=== PATIENT | female | born 1955 | race American Indian/Alaskan Native ===

== ENCOUNTER 2019-07-18 16:58 | Inpatient (IN) | payer MEDICAID ==
--- NOTE | 2019-07-18 18:48 | Emergency Department Report ---
HPI - General Chief Complaint: Neuro Symptoms/Deficit Time Seen by Provider: 07/18/19 18:30 - HPI HPI: 64-year-old female presents to the emergency department via EMS from home with multiple complaints. First, the patient says that she has concern that she has had or is having a "small stroke" because "my mouth is twisted." The patient noticed some left-sided facial droop and some difficulty talking starting yesterday. She says that when she tries to drink water it falls out of her mouth. She also complains of a generalized headache that is currently 9 out of 10 in intensity that has also been going on since yesterday. The patient also complains of some right shoulder pain that she says has been going on for the past 2-3 days. She denies any particular trauma or injury or inciting event. However the patient says that she has been falling a lot because she has been dizzy. She has a past medical history of insulin-dependent diabetes, hypertension, hyperlipidemia. She denies having a current primary care physician. She is a tobacco smoker and occasionally will smoke marijuana. Denies any significant alcohol use. ED Past Medical Hx - Past Medical History Hx Hypertension: Yes Hx Diabetes: Yes - Social History Smoking Status: Current Every Day Smoker Substance Use Type: Alcohol - Medications Home Medications: Home Medications Medication Instructions Recorded Confirmed Last Taken Type Dicyclomine [Bentyl] 10 mg PO QID PRN #20 capsule 01/08/16 Unknown Rx Famotidine [Pepcid] 20 mg PO BID #30 tablet 01/08/16 Unknown Rx ED Review of Systems ROS: Stated complaint: (L) SHOULDER PAIN/FACIAL DROOPING Other details as noted in HPI Comment: All other systems reviewed and negative Constitutional: denies: chills, fever Eyes: denies: eye pain, vision change ENT: denies: ear pain, throat pain Respiratory: denies: cough, shortness of breath Cardiovascular: denies: chest pain, palpitations Gastrointestinal: denies: abdominal pain, vomiting Genitourinary: denies: dysuria, discharge Musculoskeletal: arthralgia. denies: joint swelling Skin: denies: rash, lesions Neurological: headache, other (facial droop, dizziness) Physical Exam - Physical Exam Vital Signs: Vital Signs 07/18/19 07/18/19 07/18/19 17:20 17:22 17:30 Temperature 100.2 F H Pulse Rate 102 H 100 H Respiratory 18 21 Rate Blood Pressure 116/72 Blood Pressure 116/72 [Left] O2 Sat by Pulse 97 95 98 Oximetry 07/18/19 07/18/19 07/18/19 17:45 18:00 18:05 Temperature 100.2 F H Pulse Rate 96 H 101 H 102 H Respiratory 15 10 L 18 Rate Blood Pressure 119/74 119/74 Blood Pressure 116/72 [Left] O2 Sat by Pulse 93 95 100 Oximetry 07/18/19 18:35 Temperature Pulse Rate 100 H Respiratory Rate Blood Pressure Blood Pressure [Left] O2 Sat by Pulse Oximetry Physical Exam: GENERAL: The patient is well-developed well-nourished. HENT: Normocephalic. Atraumatic. Patient has moist mucous membranes. EYES: Extraocular motions are intact. Pupils equal reactive to light bilaterally. No nystagmus. NECK: Supple. Trachea is midline. CHEST/LUNGS: Clear to auscultation. There is no respiratory distress noted. HEART/CARDIOVASCULAR: Regular. There is no tachycardia. There is no murmur. ABDOMEN: Abdomen is soft, nontender. Patient has normal bowel sounds. There is no abdominal distention. SKIN: Skin is warm and dry. NEURO: The patient is awake, alert, and oriented. The patient is cooperative. Subjective decreased sensation to the left side of the face compared to the right. Normal speech. Left-sided nasolabial fold paresis. There is bilateral upper extremity drift with left greater than right. The right upper extremity drift. Secondary to right shoulder pain. Mild left lower extremity drift. MUSCULOSKELETAL: There is some reproducible right shoulder tenderness to palpation. There is no evidence of acute injury. ED Course Vital Signs 07/18/19 07/18/19 07/18/19 17:20 17:22 17:30 Temperature 100.2 F H Pulse Rate 102 H 100 H Respiratory 18 21 Rate Blood Pressure 116/72 Blood Pressure 116/72 [Left] O2 Sat by Pulse 97 95 98 Oximetry 07/18/19 07/18/19 07/18/19 17:45 18:00 18:05 Temperature 100.2 F H Pulse Rate 96 H 101 H 102 H Respiratory 15 10 L 18 Rate Blood Pressure 119/74 119/74 Blood Pressure 116/72 [Left] O2 Sat by Pulse 93 95 100 Oximetry 07/18/19 18:35 Temperature Pulse Rate 100 H Respiratory Rate Blood Pressure Blood Pressure [Left] O2 Sat by Pulse Oximetry - Consultations Consultation #1: 07/18/19 19:55 I spoke with the telemedicine neurologist, Dr. Charan Chase, regarding the CT findings showing right MCA infarct. He does not feel that there is any CT angiography imaging necessary. He agrees that the patient is outside of the window for TPA and would not be a thrombectomy candidate. He recommends a medical admission for further stroke workup. ED Medical Decision Making - Lab Data Result diagrams: 07/18/19 18:37 07/18/19 18:37 - EKG Data -: EKG Interpreted by Me EKG shows normal: sinus rhythm (PVCs), axis, intervals (prolonged QTc), QRS complexes, ST-T waves Rate: normal - EKG Data When compared to previous EKG there are: previous EKG unavailable Interpretation: other (Sinus with PVCs, Prolonged QTc) - Radiology Data Radiology results: report reviewed, image reviewed interpreted by me: Right shoulder x-ray does not show any fracture, dislocation or any acute process. CT head/brain wo con INDICATION: MAIN: Stroke symptoms WEAK AMS. TECHNIQUE: All CT scans at this location are performed using CT dose reduction for ALARA by means of automated exposure control. COMPARISON: None available. FINDINGS: Visualized paranasal and mastoid sinuses are clear. There is a relatively well-defined area of decreased attenuation in the right frontal and temporal lobe, consistent with infarction involving a major branch of the right middle cerebral artery. There is only minimal surrounding edema, suggesting this infarction is acute. No appreciable hemorrhage. No additional abnormalities. IMPRESSION: 1. Acute, ischemic right middle cerebral infarction. - Medical Decision Making This patient presents to the emergency department with the complaint of a possible stroke as she developed a headache and a left-sided facial droop yesterday, the day prior to presentation. On examination she does have left- sided facial droop, subjective decrease sensation to the left side of her face and has bilateral upper extremity drift with left greater than right. However the patient has some right shoulder pain that I believe is the reason for the right upper extremity drift. She has a 6 on the NIH stroke scale. Her last known well time is greater than 24 hours and is still unknown as to an exact time and therefore the patient is not a TPA candidate. She also does not appear to be a thrombectomy candidate. She had a stat CT scan of the head without contrast came back showing acute ischemic right middle cerebral infarction. As per the consultation section, I spoke with telemedicine neurology who agrees that the patient is not a TPA candidate, does not need CT angiography, and should be admitted as a medical admission for further stroke workup. Patient's labs are mostly unremarkable except for a positive troponin. The patient has no complaints of any chest pain. EKG did not show any signs of ST elevation [place] or significant dysrhythmia. She was given an aspirin. The patient was admitted to the hospital and accepted by Dr. Camilo. - Differential Diagnosis CVA, TIA, [place] Palsy, SAH Critical Care Time: Yes Critical care time in (mins) excluding proc time.: 35 Critical care attestation.: If time is entered above; I have spent that time in minutes in the direct care of this critically ill patient, excluding procedure time. Critical care time was spent on this patient and doing her initial evaluation, multiple re- evaluations, ordering an interpretation of labs and imaging, discussion with the telemedicine neurologist. Critical Care Time: 35 minutes ED Disposition Clinical Impression: Acute CVA (cerebrovascular accident), Elevated troponin Right shoulder pain Qualifiers: Chronicity: acute Qualified Code(s): M25.511 - Pain in right shoulder Hypertension Qualifiers: Hypertension type: essential hypertension Qualified Code(s): I10 - Essential (primary) hypertension Disposition: 09 OP ADMIT IP TO THIS HOSP Is pt being admited?: Yes Condition: Serious - Assessment Assessment Interval: Baseline - Level of Consciousness 1a. Level of Consciousness: alert/keenly responsive - LOC Questions 1b. LOC Questions: answers both correctly - LOC Command 1c. LOC Commands: performs tasks correctly - Best Gaze 2. Best Gaze: normal - Visual 3. Visual: no visual loss - Facial Palsy 4. Facial Palsy: partial paralysis - Motor Arm 5a. Motor Arm Left: drift 5b. Motor Arm Right: drift (Patient has right shoulder pain.) - Motor Leg 6a. Motor Leg Left: drift 6b. Motor Leg Right: no drift - Limb Ataxia 7. Limb Ataxia: absent - Sensory 8. Sensory: mild/moderate sensory loss - Best Language 9. Best Language: no aphasia - Dysarthria 10. Dysarthria: normal - Extinction and Inattention 11. Extinction/Inattention: no abnormality - Scoring Total Score: 6 Stroke Severity: Moderate Stroke
[2019-07-18 18:50] LABS: Basophils # (Auto) 0.1 K/mm3 (0.0-0.1); Basophils % (Auto) 1.3 % (0.0-1.8); Eosinophils # (Auto) 0.1 K/mm3 (0.0-0.4); Eosinophils % (Auto) 0.7 % (0.0-4.3); Hematocrit 43.5 % (30.3-42.9); Hemoglobin 14.7 gm/dl (10.1-14.3); Lymphocytes # (Auto) 2.7 K/mm3 (1.2-5.4); Lymphocytes % (Auto) 25.3 % (13.4-35.0); Mean Corpuscular HGB Conc 34 % (30-34); Mean Corpuscular Volume 93 fl (79-97); Monocytes # (Auto) 1.1 K/mm3 (0.0-0.8); Monocytes % (Auto) 10.2 % (0.0-7.3); Platelet Count 258 K/mm3 (140-440); Red Blood Count 4.67 M/mm3 (3.65-5.03); Red Cell Distribution Width 14.5 % (13.2-15.2)
[2019-07-18 19:10] LABS: INR 0.98 (0.87-1.13)
[2019-07-18 19:11] LABS: Creatine Kinase MB 1.7 ng/mL (0.0-4.0); Partial Thromboplastin Time 23.9 Sec. (24.2-36.6)
--- NOTE | 2019-07-18 19:11 | Cat Scan Report ---
CT head/brain wo con INDICATION: MAIN: Stroke symptoms WEAK AMS. TECHNIQUE: All CT scans at this location are performed using CT dose reduction for ALARA by means of automated e xposure control. COMPARISON: None available. FINDINGS: Visualized paranasal and mastoid sinuses are clear. There is a relatively well-defined area of decrea sed attenuation in the right frontal and temporal lobe, consistent with infarction involving a major branch of the right middle cerebral artery. There is only minimal surrounding edema, suggesting this infarction is acute. No appreciable hemorrhage. No additional abnormalities. IMPRESSION: 1. Acute, ischemic right middle cerebral infarction. Signer Name: Nnamdi Morales MD Signed: 07/18/2019 7:06 PM Workstation Name: [id number]
[2019-07-18] MEDS ORDERED: BABY ASPIRIN PO ONE (19:14)
[2019-07-18 19:15] LABS: Alanine Aminotransferase 20 units/L (7-56); Albumin 3.4 g/dL (3.9-5); BUN/Creatinine Ratio 13; Blood Urea Nitrogen 12 mg/dL (7-17); Calcium 8.9 mg/dL (8.4-10.2); Hemolysis Index 7
--- NOTE | 2019-07-18 19:28 | XRay Report ---
EXAMINATION: Right shoulder radiograph, 2 views CLINICAL INFORMATION: Right shoulder pain after trauma. Fall. COMPARISON: None. FINDINGS: There are advanced bony degenerative changes of the right humeral head without definitive e vidence for acute fracture or dislocation. Please correlate with patient's clinical circumstances. Signer Name: Delma Ramirez MD Signed: 07/18/2019 7:23 PM Workstation Name: [id number]
[2019-07-18] MEDS ORDERED: K-DUR PO ONE (19:29)
[2019-07-18 19:54] LABS: Chol/HDL Ratio 4.2 %
[2019-07-18] MEDS ORDERED: BENTYL PO PRN (22:47)
--- NOTE | 2019-07-18 22:47 | History and Physical Report ---
History of Present Illness Date of examination: 07/18/19 Date of admission: 07/18/19 20:09 Chief complaint: Rt sided weakness. more than 24 hours History of present illness: 64-year-old female with pmh of HTN and Diabetes presents to the emergency department via EMS complaining of Lt facial droop and Left t sided weakness.Very poor historian.Frequent falls recently.These symptoms are more than 24 hours.Has some slurring of seech.During my exam able to lift her LUE and LLE normally.Has Lt sided facial weakness.No recent trauma or injury.Known s moker. Past Medical History Hypertension Diabetes Past Surgical history None Social History Smoking Status: Current Every Day Smoker Substance Use Type: Alcohol Family History Htn - Medications Home Medications: Home Medications Medication Instructions Recorded Confirmed Last Taken Type Dicyclomine [Bentyl] 10 mg PO QID PRN #20 capsule 01/08/16 Unknown Rx Famotidine [Pepcid] 20 mg PO BID #30 tablet 01/08/16 Unknown Rx Review of Systems ROS: Stated complaint: (L) SHOULDER PAIN/FACIAL DROOPING Other details as noted in HPI Comment: All other systems reviewed and negative Constitutional: denies: chills, fever Eyes: denies: eye pain, vision change ENT: denies: ear pain, throat pain Respiratory: denies: cough, shortness of breath Cardiovascular: denies: chest pain, palpitations Gastrointestinal: denies: abdominal pain, vomiting Genitourinary: denies: dysuria, discharge Musculoskeletal: arthralgia. denies: joint swelling Skin: denies: rash, lesions Neurological: headache, other ( L facial droop, dizziness) Medications and Allergies Allergies Allergy/AdvReac Type Severity Reaction Status Date / Time Penicillins Allergy Swelling Verified 01/08/16 07:21 Home Medications Medication Instructions Recorded Confirmed Last Taken Type Dicyclomine [Bentyl] 10 mg PO QID PRN #20 capsule 01/08/16 Unknown Rx Famotidine [Pepcid] 20 mg PO BID #30 tablet 01/08/16 Unknown Rx Exam - Constitutional Vitals: Temp Pulse Resp BP Pulse Ox 100.2 F H 85 18 121/15 88 07/18/19 18:05 07/18/19 21:30 07/18/19 21:30 07/18/19 21:30 07/18/19 21:30 General appearance: Present: no acute distress, well-nourished - EENT Eyes: Present: PERRL ENT: hearing intact, clear oral mucosa - Neck Neck: Present: supple, normal ROM - Respiratory Respiratory effort: normal Respiratory: bilateral: CTA - Cardiovascular Heart rate: 100 Rhythm: regular Heart Sounds: Present: S1 & S2. Absent: rub, click - Extremities Extremities: no ischemia, pulses symmetrical, No edema Peripheral Pulses: within normal limits - Abdominal General gastrointestinal: Present: soft, non-tender, non-distended, normal bowel sounds Female genitourinary: Present: normal - Rectal Rectal Exam: deferred - Integumentary Integumentary: Present: clear, warm, dry - Musculoskeletal Musculoskeletal: right sided weakness - Psychiatric Psychiatric: appropriate mood/affect, intact judgment & insight, cooperative - Neurologic Neurologic: focal deficits (LUE and LLE 4/5 power.Lt facial palsy present), moves all extremities, other (Reflexes are normal.) - Allied Health Allied health notes reviewed: nursing, case management Results - Labs CBC & Chem 7: 07/18/19 18:37 07/18/19 18:37 Labs: Laboratory Last Values WBC 10.8 K/mm3 (4.5-11.0) 07/18/19 18:37 RBC 4.67 M/mm3 (3.65-5.03) 07/18/19 18:37 Hgb 14.7 gm/dl (10.1-14.3) H 07/18/19 18:37 Hct 43.5 % (30.3-42.9) H 07/18/19 18:37 MCV 93 fl (79-97) 07/18/19 18:37 MCH 31 pg (28-32) 07/18/19 18:37 MCHC 34 % (30-34) 07/18/19 18:37 RDW 14.5 % (13.2-15.2) 07/18/19 18:37 Plt Count 258 K/mm3 (140-440) 07/18/19 18:37 Lymph % (Auto) 25.3 % (13.4-35.0) 07/18/19 18:37 Martin % (Auto) 10.2 % (0.0-7.3) H 07/18/19 18:37 Eos % (Auto) 0.7 % (0.0-4.3) 07/18/19 18:37 Baso % (Auto) 1.3 % (0.0-1.8) 07/18/19 18:37 Lymph # 2.7 K/mm3 (1.2-5.4) 07/18/19 18:37 Martin # 1.1 K/mm3 (0.0-0.8) H 07/18/19 18:37 Eos # 0.1 K/mm3 (0.0-0.4) 07/18/19 18:37 Baso # 0.1 K/mm3 (0.0-0.1) 07/18/19 18:37 Seg Neutrophils % 62.5 % (40.0-70.0) 07/18/19 18:37 Seg Neutrophils # 6.8 K/mm3 (1.8-7.7) 07/18/19 18:37 PT 12.7 Sec. (12.2-14.9) 07/18/19 18:37 INR 0.98 (0.87-1.13) 07/18/19 18:37 APTT 23.9 Sec. (24.2-36.6) L 07/18/19 18:37 Sodium 138 mmol/L (137-145) 07/18/19 18:37 Potassium 3.4 mmol/L (3.6-5.0) L 07/18/19 18:37 Chloride 97.5 mmol/L (98-107) L 07/18/19 18:37 Carbon Dioxide 28 mmol/L (22-30) 07/18/19 18:37 16 mmol/L 07/18/19 18:37 BUN 12 mg/dL (7-17) 07/18/19 18:37 0.9 mg/dL (0.7-1.2) 07/18/19 18:37 Estimated GFR > 60 ml/min 07/18/19 18:37 13 % 07/18/19 18:37 Glucose 220 mg/dL (65-100) H 07/18/19 18:37 Calcium 8.9 mg/dL (8.4-10.2) 07/18/19 18:37 0.40 mg/dL (0.1-1.2) 07/18/19 18:37 AST 24 units/L (5-40) 07/18/19 18:37 ALT 20 units/L (7-56) 07/18/19 18:37 98 units/L (35-129) 07/18/19 18:37 286 units/L (30-135) H 07/18/19 18:37 CK-MB (CK-2) 1.7 ng/mL (0.0-4.0) 07/18/19 18:37 CK-MB (CK-2) Rel Index 0.5 (0-4) 07/18/19 18:37 0.318 ng/mL (0.00-0.029) H* 07/18/19 20:40 7.3 g/dL (6.3-8.2) 07/18/19 18:37 3.4 g/dL (3.9-5) L 07/18/19 18:37 0.9 % 07/18/19 18:37 Triglycerides 142 mg/dL (2-149) 07/18/19 18:37 Cholesterol 122 mg/dL (50-199) 07/18/19 18:37 79 mg/dL (50-130) 07/18/19 18:37 29 mg/dL (40-59) L 07/18/19 18:37 4.20 % 07/18/19 18:37 TSH 1.760 mlU/mL (0.270-4.200) 07/18/19 18:37 Plasma/Serum Alcohol < 0.01 % (0-0.07) 07/18/19 18:37 Short CBC 07/18/19 Range/Units 18:37 WBC 10.8 (4.5-11.0) K/mm3 Hgb 14.7 H (10.1-14.3) gm/dl Hct 43.5 H (30.3-42.9) % Plt Count 258 (140-440) K/mm3 BMP 07/18/19 18:37 Sodium 138 Potassium 3.4 L Chloride 97.5 L Carbon Dioxide 28 BUN 12 Creatinine 0.9 Glucose 220 H Calcium 8.9 Cardiac Enzymes 07/18/19 07/18/19 Range/Units 18:37 20:40 Total Creatine Kinase 286 H (30-135) units/L CK-MB (CK-2) 1.7 (0.0-4.0) ng/mL Troponin T 0.319 H* 0.318 H* (0.00-0.029) ng/mL Liver Function 07/18/19 Range/Units 18:37 Total Bilirubin 0.40 (0.1-1.2) mg/dL AST 24 (5-40) units/L ALT 20 (7-56) units/L Alkaline Phosphatase 98 (35-129) units/L Albumin 3.4 L (3.9-5) g/dL Short CBC 07/18/19 Range/Units 18:37 WBC 10.8 (4.5-11.0) K/mm3 Hgb 14.7 H (10.1-14.3) gm/dl Hct 43.5 H (30.3-42.9) % Plt Count 258 (140-440) K/mm3 BMP 07/18/19 18:37 Sodium 138 Potassium 3.4 L Chloride 97.5 L Carbon Dioxide 28 BUN 12 Creatinine 0.9 Glucose 220 H Calcium 8.9 Cardiac Enzymes 07/18/19 07/18/19 Range/Units 18:37 20:40 Total Creatine Kinase 286 H (30-135) units/L CK-MB (CK-2) 1.7 (0.0-4.0) ng/mL Troponin T 0.319 H* 0.318 H* (0.00-0.029) ng/mL Liver Function 07/18/19 Range/Units 18:37 Total Bilirubin 0.40 (0.1-1.2) mg/dL AST 24 (5-40) units/L ALT 20 (7-56) units/L Alkaline Phosphatase 98 (35-129) units/L Albumin 3.4 L (3.9-5) g/dL - Imaging and Cardiology EKG: report reviewed (NSR 100/min) CT Scan - head: report reviewed Imaging and Cardiology: CT Head FINDINGS: Visualized paranasal and mastoid sinuses are clear. There is a relatively well-defined area of decreased attenuation in the right frontal and temporal lobe, consistent with infarction involving a major branch of the right middle cerebral artery. There is only minimal surrounding edema, suggesting this infarction is acute. No appreciable hemorrhage. No additional abnormalities. IMPRESSION: 1. Acute, ischemic right middle cerebral infarction. Rt Shoulder Xray Degenerative changes in Rt Humeral head Assessment and Plan Advance Directives: Yes (Full code) VTE prophylaxis?: Chemical Plan of care discussed with patient/family: Yes - Patient Problems (1) Acute CVA (cerebrovascular accident) Current Visit: Yes Status: Acute Plan to address problem: CT shows Rt sided MCA territory infarct Patient has Lt sided Weakness. Neuro consult requested. ECHO and Carotid duplex scan ordered.Will defer MRI/MRA requirement to Neurology. patient not a candidate for TPA because she is out of the window period. (2) Elevated troponin I level Current Visit: Yes Status: Acute Plan to address problem: Appears to be nonspeciific CK MB not elevated Will defer to cardiolgy consult (3) Hypertension Current Visit: Yes Status: Chronic Qualifiers: Hypertension type: essential hypertension Qualified Code(s): I10 - Essential (primary) hypertension Plan to address problem: COnt antihypertensives (4) T2DM (type 2 diabetes mellitus) Current Visit: Yes Status: Chronic Qualifiers: Diabetes mellitus long term care pharmacist insulin use: without long term care pharmacist use Plan to address problem: Coverage for now Check A1c Not on any home hypoglycemics Initiate Oral hypoglycemics if necessary Defer to primary team (5) Nicotine dependence with current use Current Visit: Yes Status: Chronic Plan to address problem: Patient counselled Initiated on Nicoderm patch (6) Right shoulder pain Current Visit: Yes Status: Acute Qualifiers: Chronicity: acute Qualified Code(s): M25.511 - Pain in right shoulder Plan to address problem: Sec to Degenerative changes in Rt shoulder Jt Analgesics prn (7) DVT prophylaxis Current Visit: Yes Status: Acute Plan to address problem: Lovenox initiated on Lovenox and Gi prophylaxis
[2019-07-18] MEDS ORDERED: SODIUM CHLORIDE FLUSH SYRINGE 10 ML IV PRN ×2 (22:48→22:50)
[2019-07-18] MEDS ORDERED: ZOFRAN IV PRN (22:48)
[2019-07-18] MEDS ORDERED: NACL 0.9% 1000 ML 1,000 ML IV SCH (23:00)
[2019-07-19 07:14] LABS: Bilirubin,Urine NEG (Negative); Blood,Urine NEG (Negative); Color,Urine Yellow (Yellow); Mucus,Urine FEW /HPF; Protein,Urine <15 mg/dL mg/dL (Negative); Urobilinogen,Urine < 2.0 mg/dL (<2.0)
[2019-07-19 07:34] LABS: Amphetamine Screen,Urine PRESUMPTIVE NEGATIVE; Benzodiazepines Screen,Urine PRESUMPTIVE NEGATIVE; Cocaine Screen,Urine PRESUMPTIVE NEGATIVE; Methadone Screen,Urine PRESUMPTIVE NEGATIVE; Opiate Screen,Urine PRESUMPTIVE NEGATIVE
[2019-07-19 07:56] LABS: Cannabinoid Screen,Urine PRESUMPTIVE POSITIVE
[2019-07-19] MEDS ORDERED: ASPIRIN PO SCH (10:00)
[2019-07-19] MEDS: HABITROL TD SCH (10:30)
[2019-07-19] MEDS: PEPCID PO SCH ×2 (10:30→22:09)
[2019-07-19] MEDS: SODIUM CHLORIDE FLUSH SYRINGE 10 ML IV SCH ×2 (10:30→22:48)
[2019-07-19] MEDS: TYLENOL PO PRN (10:30)
--- NOTE | 2019-07-19 12:44 | Vascular Lab Report ---
BILATERAL CAROTID DOPPLER ULTRASOUND INDICATION : stroke TECHNIQUE: Grayscale and color Doppler imaging performed through the neck. COMPARISON: None FINDINGS: Right: There is no significant atherosclerotic disease. Peak systolic velocity in the CCA is 57 cm/ s with end-diastolic velocity of 18 cm/s. Peak systolic velocity in the proximal ICA is 48 cm/s with end-diastolic velocity of 13 cm/s. ICA to CCA ratio is less than 2. There is antegrade flow in the E CA and the vertebral artery. Left: There is no significant atherosclerotic disease. Peak systolic velocity in the CCA is 58 cm/s w ith end-diastolic velocity of 16 cm/s. Peak systolic velocity in the proximal ICA is 87 cm/s with end -diastolic velocity of 77 cm/s. ICA to CCA ratio is less than 2. There is antegrade flow in the ECA and the vertebral artery. IMPRESSION: No hemodynamically significant stenosis by NASCET criteria. There is less than 50% lumina l narrowing in both carotid systems. Signer Name: Chandrakant Cardoso Jr, MD Signed: 07/19/2019 12:39 PM Workstation Name: [id number]
--- NOTE | 2019-07-19 12:54 | Progress Note ---
Assessment and Plan Assessment and plan: 64-year-old female with pmh of HTN and Diabetes presents to the emergency department via EMS complaining of Lt facial droop and right sided weakness. Very poor historian. Frequent falls recently. These symptoms are more than 24 hours. Has some slurring of speech. Per daughter who is at bedside, she first noticed the patient was acting strange the day before but the patient refused to go to the ER, the next day the patient became confused, facial droop was noted and the patient almost burnt what she was cooking prompting and ER visit. The patient had complained of shoulder pain for the past 2-3 days and chronic dizziness she unfortunately continues to smoke CT Head: IMPRESSION: 1. Acute, ischemic right middle cerebral infarction. 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, AWAIT Cardiology input Hypokalemia-supplemented in ED THC Use disorder and Tobacco use disorder * Extensive counselling provided to the patient on need to Quit tobacco use, 15 MINS COUNSELLING PROVIDED, PATIENT VERBALIZED UNDERSTANDING HTN * Resume BP control DM type 2 WITH hyperglycemia * Accucheck, AC/HS, Insulin therapy DJD, right shoulder * PT/OT eval and treat Obesity * Lifestyle modification therapy discussed in detail; DVT/GI Prophy and Mobility protocol History Interval history: Patient seen and examined, Follow up for CVA Patient reports improvement in symptoms, family at bedside, no new complaints. She is sitting up working with PT. She still has notable dysathria, and LEFTfacial droop Hospitalist Physical - Physical exam Narrative exam: VITAL SIGNS: Reviewed. GENERAL: The patient appears normally developed, Sitting up at bedside, obese Vital signs as documented. HEAD: No signs of head trauma. EYES: Pupils are equal. Extraocular motions intact. EARS: Hearing grossly intact. MOUTH: left facial droop. NECK: No adenopathy, no JVD. CHEST: Chest with clear breath sounds bilaterally. No wheezes, rales, or rhonchi. CARDIAC: Regular rate and rhythm. S1 and S2, without murmurs, gallops, or rubs. VASCULAR: No Edema. Peripheral pulses normal and equal in all extremities. ABDOMEN: Soft, non tender and non distended. No rebound or guarding, and no masses palpated. Bowel Sounds normal. MUSCULOSKELETAL: Good range of motion of all major joints except right shoulder, mild tenderness. Extremities without clubbing, cyanosis or edema. NEUROLOGIC EXAM: Alert and oriented x 3 diminished right sided motor strenght. Speech normal. Follows commands. PSYCHIATRIC: Mood normal. SKIN: detail exam as documented in skin assessment - Constitutional Vitals: Temp Pulse Resp BP Pulse Ox 97.9 F 56 L 18 132/67 96 07/19/19 12:11 07/19/19 12:11 07/19/19 12:11 07/19/19 12:11 07/19/19 12:11 General appearance: Present: no acute distress, well-nourished Results - Labs CBC & Chem 7: 07/18/19 18:37 07/18/19 18:37 Labs: Laboratory Last Values WBC 10.8 K/mm3 (4.5-11.0) 07/18/19 18:37 RBC 4.67 M/mm3 (3.65-5.03) 07/18/19 18:37 Hgb 14.7 gm/dl (10.1-14.3) H 07/18/19 18:37 Hct 43.5 % (30.3-42.9) H 07/18/19 18:37 MCV 93 fl (79-97) 07/18/19 18:37 MCH 31 pg (28-32) 07/18/19 18:37 MCHC 34 % (30-34) 07/18/19 18:37 RDW 14.5 % (13.2-15.2) 07/18/19 18:37 Plt Count 258 K/mm3 (140-440) 07/18/19 18:37 Lymph % (Auto) 25.3 % (13.4-35.0) 07/18/19 18:37 [place] % (Auto) 10.2 % (0.0-7.3) H 07/18/19 18:37 Eos % (Auto) 0.7 % (0.0-4.3) 07/18/19 18:37 Baso % (Auto) 1.3 % (0.0-1.8) 07/18/19 18:37 Lymph # 2.7 K/mm3 (1.2-5.4) 07/18/19 18:37 [place] # 1.1 K/mm3 (0.0-0.8) H 07/18/19 18:37 Eos # 0.1 K/mm3 (0.0-0.4) 07/18/19 18:37 Baso # 0.1 K/mm3 (0.0-0.1) 07/18/19 18:37 Seg Neutrophils % 62.5 % (40.0-70.0) 07/18/19 18:37 Seg Neutrophils # 6.8 K/mm3 (1.8-7.7) 07/18/19 18:37 PT 12.7 Sec. (12.2-14.9) 07/18/19 18:37 INR 0.98 (0.87-1.13) 07/18/19 18:37 APTT 23.9 Sec. (24.2-36.6) L 07/18/19 18:37 Sodium 138 mmol/L (137-145) 07/18/19 18:37 Potassium 3.4 mmol/L (3.6-5.0) L 07/18/19 18:37 Chloride 97.5 mmol/L (98-107) L 07/18/19 18:37 Carbon Dioxide 28 mmol/L (22-30) 07/18/19 18:37 16 mmol/L 07/18/19 18:37 BUN 12 mg/dL (7-17) 07/18/19 18:37 0.9 mg/dL (0.7-1.2) 07/18/19 18:37 Estimated GFR > 60 ml/min 07/18/19 18:37 13 % 07/18/19 18:37 Glucose 220 mg/dL (65-100) H 07/18/19 18:37 POC Glucose 292 (70-105) H 07/19/19 11:41 7.8 % (4-6) H 07/18/19 18:37 Calcium 8.9 mg/dL (8.4-10.2) 07/18/19 18:37 0.40 mg/dL (0.1-1.2) 07/18/19 18:37 AST 24 units/L (5-40) 07/18/19 18:37 ALT 20 units/L (7-56) 07/18/19 18:37 98 units/L (35-129) 07/18/19 18:37 286 units/L (30-135) H 07/18/19 18:37 CK-MB (CK-2) 1.7 ng/mL (0.0-4.0) 07/18/19 18:37 CK-MB (CK-2) Rel Index 0.5 (0-4) 07/18/19 18:37 0.318 ng/mL (0.00-0.029) H* 07/18/19 20:40 7.3 g/dL (6.3-8.2) 07/18/19 18:37 3.4 g/dL (3.9-5) L 07/18/19 18:37 0.9 % 07/18/19 18:37 Triglycerides 142 mg/dL (2-149) 07/18/19 18:37 Cholesterol 122 mg/dL (50-199) 07/18/19 18:37 79 mg/dL (50-130) 07/18/19 18:37 29 mg/dL (40-59) L 07/18/19 18:37 4.20 % 07/18/19 18:37 TSH 1.760 mlU/mL (0.270-4.200) 07/18/19 18:37 Yellow (Yellow) 07/19/19 06:31 Slightly-cloudy (Clear) 07/19/19 06:31 6.0 (5.0-7.0) 07/19/19 06:31 Ur Specific [place] 1.018 (1.003-1.030) 07/19/19 06:31 <15 mg/dl mg/dL (Negative) 07/19/19 06:31 Neg mg/dL (Negative) 07/19/19 06:31 Neg mg/dL (Negative) 07/19/19 06:31 Neg (Negative) 07/19/19 06:31 Neg (Negative) 07/19/19 06:31 Neg (Negative) 07/19/19 06:31 < 2.0 mg/dL (<2.0) 07/19/19 06:31 Ur Leukocyte Esterase Neg (Negative) 07/19/19 06:31 3.0 /HPF (0.0-6.0) 07/19/19 06:31 3.0 /HPF (0.0-6.0) 07/19/19 06:31 U Epithel Cells (Auto) 3.0 /HPF (0-13.0) 07/19/19 06:31 Few /HPF 07/19/19 06:31 Presumptive negative 07/19/19 06:31 Presumptive negative 07/19/19 06:31 Ur Barbiturates Screen Presumptive negative 07/19/19 06:31 Ur Phencyclidine Scrn Presumptive negative 07/19/19 06:31 Ur Amphetamines Screen Presumptive negative 07/19/19 06:31 U Benzodiazepines Scrn Presumptive negative 07/19/19 06:31 Presumptive negative 07/19/19 06:31 U Marijuana (THC) Screen Presumptive positive 07/19/19 06:31 Disclamer 07/19/19 06:31 Plasma/Serum Alcohol < 0.01 % (0-0.07) 07/18/19 18:37 Active Medications - Current Medications Current Medications: Generic Name Dose Route Start Last Admin Trade Name Freq PRN Reason Stop Dose Admin Acetaminophen 650 mg 07/18/19 22:48 07/19/19 10:30 Tylenol PO 650 mg Q4H PRN Administration Pain MILD(1-3)/Fever >100.5/BRIDGES Aspirin 325 mg 07/19/19 10:00 07/19/19 10:29 Aspirin PO 325 mg QDAY BAUTISTA Administration Atorvastatin Calcium 40 mg 07/19/19 22:00 Lipitor PO QHS [facility] Dicyclomine HCl 10 mg 07/18/19 22:47 Bentyl PO QID PRN Pain Enoxaparin Sodium 40 mg 07/19/19 22:00 Lovenox SUB-Q QDAY@2200 [facility] Famotidine 20 mg 07/18/19 23:00 07/19/19 10:30 Pepcid PO 20 mg BID BAUTISTA Administration Hydromorphone HCl 0.5 mg 07/18/19 22:49 Dilaudid IV Q3H PRN Pain , Severe (7-10) Insulin Human Lispro 0 unit 07/19/19 11:30 Humalog SUB-Q ACHS [facility] Protocol Nicotine 14 mg 07/19/19 10:00 07/19/19 10:30 Habitrol TD 14 mg QDAY BAUTISTA Administration Ondansetron HCl 4 mg 07/18/19 22:48 Zofran IV Q8H PRN Nausea And Vomiting Potassium Chloride 40 meq 07/19/19 10:00 K-Dur PO 07/19/19 10:01 ONCE ONE Sodium Chloride 10 ml 07/19/19 10:00 07/19/19 10:30 Sodium Chloride Flush Syringe 10 Ml IV 10 ml BID BAUTISTA Administration Sodium Chloride 10 ml 07/18/19 22:50 Sodium Chloride Flush Syringe 10 Ml IV PRN PRN LINE FLUSH
--- NOTE | 2019-07-19 13:06 | Consultation ---
<BLAKE GIORDANO - Last Filed: 07/19/19 13:02> History of Present Illness Consult date: 07/19/19 Consult reason: elevated troponin History of present illness: This is a 64-year old woman who is admitted with acute ischemic CVA. She has no significant residual deficits. A cardiac consultation has been requested for elevated troponin. Patient denies chest pain and any unusual shortness of breath although audible wheezing is noted on assessment. Patient reports a history of hypertension and diabetes. She also has underlying COPD and continues to smoke. Patient denies a prior cardiac history and has not had any prior cardiac workup. An EKG is sinus rhythm with old inferior infarct. There is no prior ECG available for comparison. Medications and Allergies Allergies Allergy/AdvReac Type Severity Reaction Status Date / Time Penicillins Allergy Swelling Verified 01/08/16 07:21 Home Medications Medication Instructions Recorded Confirmed Last Taken Type Dicyclomine [Bentyl] 10 mg PO QID PRN #20 capsule 01/08/16 Unknown Rx Famotidine [Pepcid] 20 mg PO BID #30 tablet 01/08/16 Unknown Rx Active Meds: Active Medications Acetaminophen (Tylenol) 650 mg PO Q4H PRN PRN Reason: Pain MILD(1-3)/Fever >100.5/BRIDGES Last Admin: 07/19/19 10:30 Dose: 650 mg Documented by: Aspirin (Aspirin) 325 mg PO QDAY [facility] Last Admin: 07/19/19 10:29 Dose: 325 mg Documented by: Atorvastatin Calcium (Lipitor) 40 mg PO QHS [facility] Dicyclomine HCl (Bentyl) 10 mg PO QID PRN PRN Reason: Pain Enoxaparin Sodium (Lovenox) 40 mg SUB-Q QDAY@2200 [facility] Famotidine (Pepcid) 20 mg PO BID [facility] Last Admin: 07/19/19 10:30 Dose: 20 mg Documented by: Hydromorphone HCl (Dilaudid) 0.5 mg IV Q3H PRN PRN Reason: Pain , Severe (7-10) Insulin Human Lispro (Humalog) 0 unit SUB-Q [facility]; Protocol Nicotine (Habitrol) 14 mg TD QDAY [facility] Last Admin: 07/19/19 10:30 Dose: 14 mg Documented by: Ondansetron HCl (Zofran) 4 mg IV Q8H PRN PRN Reason: Nausea And Vomiting Potassium Chloride (K-Dur) 40 meq PO ONCE ONE Stop: 07/19/19 10:01 Sodium Chloride (Sodium Chloride Flush Syringe 10 Ml) 10 ml IV BID BAUTISTA Last Admin: 07/19/19 10:30 Dose: 10 ml Documented by: Sodium Chloride (Sodium Chloride Flush Syringe 10 Ml) 10 ml IV PRN PRN PRN Reason: LINE FLUSH Physical Examination Vital Signs Temp Pulse Resp BP Pulse Ox 100.2 F H 102 H 18 116/72 97 07/18/19 17:20 07/18/19 17:20 07/18/19 17:20 07/18/19 17:20 07/18/19 17:20 General appearance: no acute distress HEENT: Positive: PERRL Neck: Positive: trachea midline Cardiac: Positive: Reg Rate and Rhythm Lungs: Positive: Wheezes Neuro: Positive: Grossly Intact Extremities: Absent: edema Results 07/18/19 18:37 07/18/19 18:37 Cardiac Enzymes 07/18/19 07/18/19 Range/Units 18:37 18:37 AST 24 (5-40) units/L CK-MB (CK-2) 1.7 (0.0-4.0) ng/mL Coagulation 07/18/19 Range/Units 18:37 PT 12.7 (12.2-14.9) Sec. INR 0.98 (0.87-1.13) APTT 23.9 L (24.2-36.6) Sec. Lipids 07/18/19 Range/Units 18:37 Triglycerides 142 (2-149) mg/dL Cholesterol 122 (50-199) mg/dL HDL Cholesterol 29 L (40-59) mg/dL Cholesterol/HDL Ratio 4.20 % CBC 07/18/19 Range/Units 18:37 WBC 10.8 (4.5-11.0) K/mm3 RBC 4.67 (3.65-5.03) M/mm3 Hgb 14.7 H (10.1-14.3) gm/dl Hct 43.5 H (30.3-42.9) % Plt Count 258 (140-440) K/mm3 Lymph # 2.7 (1.2-5.4) K/mm3 Sac # 1.1 H (0.0-0.8) K/mm3 Eos # 0.1 (0.0-0.4) K/mm3 Baso # 0.1 (0.0-0.1) K/mm3 Comprehensive Metabolic Panel 07/18/19 Range/Units 18:37 Sodium 138 (137-145) mmol/L Potassium 3.4 L (3.6-5.0) mmol/L Chloride 97.5 L (98-107) mmol/L Carbon Dioxide 28 (22-30) mmol/L BUN 12 (7-17) mg/dL Creatinine 0.9 (0.7-1.2) mg/dL Glucose 220 H (65-100) mg/dL Calcium 8.9 (8.4-10.2) mg/dL AST 24 (5-40) units/L ALT 20 (7-56) units/L Alkaline Phosphatase 98 (35-129) units/L Total Protein 7.3 (6.3-8.2) g/dL Albumin 3.4 L (3.9-5) g/dL Assessment and Plan Acute ischemic CVA Hypertension Diabetes Elevated troponin COPD Tobacco abuse <DARIAN HENDRICKSON - Last Filed: 07/19/19 14:05> Medications and Allergies Active Meds: Active Medications Acetaminophen (Tylenol) 650 mg PO Q4H PRN PRN Reason: Pain MILD(1-3)/Fever >100.5/BRIDGES Last Admin: 07/19/19 10:30 Dose: 650 mg Documented by: Aspirin (Aspirin) 325 mg PO QDAY [facility] Last Admin: 07/19/19 10:29 Dose: 325 mg Documented by: Atorvastatin Calcium (Lipitor) 40 mg PO QHS [facility] Dicyclomine HCl (Bentyl) 10 mg PO QID PRN PRN Reason: Pain Enoxaparin Sodium (Lovenox) 40 mg SUB-Q QDAY@2200 [facility] Famotidine (Pepcid) 20 mg PO BID [facility] Last Admin: 07/19/19 10:30 Dose: 20 mg Documented by: Hydromorphone HCl (Dilaudid) 0.5 mg IV Q3H PRN PRN Reason: Pain , Severe (7-10) Insulin Human Lispro (Humalog) 0 unit SUB-Q [facility]; Protocol Last Admin: 07/19/19 13:07 Dose: 4 unit Documented by: Nicotine (Habitrol) 14 mg TD QDAY [facility] Last Admin: 07/19/19 10:30 Dose: 14 mg Documented by: Ondansetron HCl (Zofran) 4 mg IV Q8H PRN PRN Reason: Nausea And Vomiting Potassium Chloride (K-Dur) 40 meq PO ONCE ONE Stop: 07/19/19 10:01 Sodium Chloride (Sodium Chloride Flush Syringe 10 Ml) 10 ml IV BID [facility] Last Admin: 07/19/19 10:30 Dose: 10 ml Documented by: Sodium Chloride (Sodium Chloride Flush Syringe 10 Ml) 10 ml IV PRN PRN PRN Reason: LINE FLUSH Physical Examination Vital Signs Temp Pulse Resp BP Pulse Ox 100.2 F H 102 H 18 116/72 97 07/18/19 17:20 07/18/19 17:20 07/18/19 17:20 07/18/19 17:20 07/18/19 17:20 Results 07/18/19 18:37 07/18/19 18:37 Cardiac Enzymes 07/18/19 07/18/19 Range/Units 18:37 18:37 AST 24 (5-40) units/L CK-MB (CK-2) 1.7 (0.0-4.0) ng/mL Coagulation 07/18/19 Range/Units 18:37 PT 12.7 (12.2-14.9) Sec. INR 0.98 (0.87-1.13) APTT 23.9 L (24.2-36.6) Sec. Lipids 07/18/19 Range/Units 18:37 Triglycerides 142 (2-149) mg/dL Cholesterol 122 (50-199) mg/dL HDL Cholesterol 29 L (40-59) mg/dL Cholesterol/HDL Ratio 4.20 % CBC 07/18/19 Range/Units 18:37 WBC 10.8 (4.5-11.0) K/mm3 RBC 4.67 (3.65-5.03) M/mm3 Hgb 14.7 H (10.1-14.3) gm/dl Hct 43.5 H (30.3-42.9) % Plt Count 258 (140-440) K/mm3 Lymph # 2.7 (1.2-5.4) K/mm3 Sac # 1.1 H (0.0-0.8) K/mm3 Eos # 0.1 (0.0-0.4) K/mm3 Baso # 0.1 (0.0-0.1) K/mm3 Comprehensive Metabolic Panel 07/18/19 Range/Units 18:37 Sodium 138 (137-145) mmol/L Potassium 3.4 L (3.6-5.0) mmol/L Chloride 97.5 L (98-107) mmol/L Carbon Dioxide 28 (22-30) mmol/L BUN 12 (7-17) mg/dL Creatinine 0.9 (0.7-1.2) mg/dL Glucose 220 H (65-100) mg/dL Calcium 8.9 (8.4-10.2) mg/dL AST 24 (5-40) units/L ALT 20 (7-56) units/L Alkaline Phosphatase 98 (35-129) units/L Total Protein 7.3 (6.3-8.2) g/dL Albumin 3.4 L (3.9-5) g/dL Assessment and Plan - Patient Problems (1) Elevated troponin Current Visit: Yes Status: Acute Plan to address problem: 64-year-old woman, who presented with acute onset weakness and evident left- sided facial droop. She is admitted with the diagnosis of acute CVA. The differential diagnosis would include Lopez's palsy. Cardiac consultation was requested for the finding of an elevated troponin level. The troponin level was 0.3, and unchanged on serial measurements. The patient had no chest pain, no exertional shortness of breath, no palpitations and no cardiac complaints. Additional symptoms on presentation of diffuse expiratory wheezes. The patient states that due to chronic tobacco abuse, she has COPD. Despite ongoing wheezing, I do not see that a chest x-ray was ordered or performed on this presentation. EKG normal sinus rhythm, borderline inferior Q waves of possible old inferior infarct. No acute ST or T-wave abnormalities. Recommendations: Workup of facial asymmetry for CVA of Lopez's palsy as per neurology. The prudent to get a chest x-ray and consider pulmonary evaluation of the patient's persistent expiratory wheezing. Echocardiogram with Doppler for left ventricular function and valvular function assessment. Any further cardiac evaluation will depend on clinical course. A predischarge Lexiscan thallium stress test will be considered for further assessment of the troponin elevation.
[2019-07-19] MEDS: HumaLOG SUB-Q SCH ×3 (13:07→22:09)
[2019-07-19] MEDS ORDERED: POTASSIUM CHLORIDE PO ONE (18:00)
[2019-07-19] MEDS ORDERED: K-DUR PO ONE (18:00)
--- NOTE | 2019-07-19 19:32 | Magnetic Resonance Report ---
MRI BRAIN WITHOUT CONTRAST INDICATION / CLINICAL INFORMATION: Follow-up CVA. Right hemiparesis. TECHNIQUE: Multiplanar, multisequence MR images of the brain were obtained. COMPARISON: Head CT 07/18/2019 FINDINGS: BRAIN / INTRACRANIAL CONTENTS: A large area of restricted diffusion is observed in the right cerebral hemisphere confined to the rig ht frontal lobe and adjacent right frontal operculum. This represents a large subacute infarction in a right middle cerebral artery distribution. Areas of serpiginous decreased signal intensity on gradi ent echo T2*weighted sequences suggest that there may be associated petechial hemorrhage. There is no parenchymal hematoma. An additional area of restricted diffusion is demonstrated along the medial as pect of the left parietal lobe. This represents a subacute left posterior cerebral artery infarction. There is no associated hemorrhage. The presence of these infarctions in multiple vascular distributi ons suggests the possibility of an embolic etiology. There is mild sulcal effacement over the lateral convexity of the right frontal lobe in the region of the subacute infarction. This is a manifestation of early mass effect. Ventricles and cortical sulci are otherwise normal in size and configuration. There is no additional mass effect. No evidence of p arenchymal hematoma or extra-axial fluid collection is seen. The brainstem and cerebellum have an unremarkable appearance. CRANIOCERVICAL JUNCTION: No abnormalities are identified at the craniocervical junction. VASCULAR FLOW-VOIDS: Normal flow-voids are present within the major intracranial vessels. ORBITS: The orbits have an unremarkable appearance. SINUSES / MASTOIDS: Inflammatory changes are present in the left-sided mastoid air cells which may re flect acute or chronic mastoiditis. Paranasal sinuses and right-sided mastoid air cells are free from inflammatory mucosal disease. IMPRESSION: 1. Findings indicate interval development of a small amount of petechial hemorrhage in association wi th the patient's recent right frontal lobe infarction. 2. A second subacute infarction is identified in the left posterior cerebral artery distribution invo lving the left parietal lobe. The presence of 2 infarctions in different vascular distributions sugge sts the possibility of an embolic etiology. Critical result: Time of discovery: 1819 Central standard time Notification: I called report of this study to Nicol the patient's nurse on 4 telemetry at about 18 25 Central standard time. A read back was performed. Signer Name: Juan Pitts MD Signed: 07/19/2019 7:28 PM Workstation Name: [id number]
--- NOTE | 2019-07-19 20:15 | Consultation ---
History of Present Illness Consult date: 07/19/19 Reason for Consult: Stroke Chief complaint: Stroke, falls, left facial droop History of present illness: Patient is a 63-year-old woman with a history of diabetes, hypertension, hyperlipidemia, and tobacco use. Proximally 2 days ago, she noted that she began having falls, and had slurred speech. Her daughter ultimately noted these findings as well, and brought her to the ER for evaluation. CT head showed right MCA territory infarct. Patient also was found to have a low-grade 100.2 fever on admission. Patient was not taking aspirin at home. She was also found to have elevated troponins on admission. Past History Past Medical History: diabetes, hypertension, hyperlipidemia Social history: smoking, other (marijuana use) Family history: no significant family history Medications and Allergies Allergies Allergy/AdvReac Type Severity Reaction Status Date / Time Penicillins Allergy Swelling Verified 01/08/16 07:21 Home Medications Medication Instructions Recorded Confirmed Last Taken Type Atorvastatin [Lipitor Tab] 80 mg PO DAILY 07/19/19 07/19/19 Unknown History Gabapentin [Neurontin] 600 mg PO Q8HR 07/19/19 07/19/19 Unknown History Insulin Aspart [Novolog] 25 units SQ TID 07/19/19 07/19/19 Unknown History Insulin Detemir [Levemir Flextouch] 10 units SQ HS 07/19/19 07/19/19 Unknown History Lisinopril [Zestril TAB] 20 mg PO DAILY 07/19/19 07/19/19 Unknown History metFORMIN XR [Glucophage XR] 500 mg PO QDAY 07/19/19 07/19/19 Unknown History Active Meds: Active Medications Acetaminophen (Tylenol) 650 mg PO Q4H PRN PRN Reason: Pain MILD(1-3)/Fever >100.5/BRIDGES Last Admin: 07/19/19 10:30 Dose: 650 mg Documented by: Aspirin (Aspirin) 325 mg PO QDAY [facility] Last Admin: 07/19/19 10:29 Dose: 325 mg Documented by: Atorvastatin Calcium (Lipitor) 40 mg PO QHS [facility] Dicyclomine HCl (Bentyl) 10 mg PO QID PRN PRN Reason: Pain Enoxaparin Sodium (Lovenox) 40 mg SUB-Q QDAY@2200 [facility] Famotidine (Pepcid) 20 mg PO BID [facility] Last Admin: 07/19/19 10:30 Dose: 20 mg Documented by: Hydromorphone HCl (Dilaudid) 0.5 mg IV Q3H PRN PRN Reason: Pain , Severe (7-10) Insulin Human Lispro (Humalog) 0 unit SUB-Q ACHS [facility]; Protocol Last Admin: 07/19/19 17:00 Dose: Not Given Documented by: Nicotine (Habitrol) 14 mg TD QDAY [facility] Last Admin: 07/19/19 10:30 Dose: 14 mg Documented by: Ondansetron HCl (Zofran) 4 mg IV Q8H PRN PRN Reason: Nausea And Vomiting Sodium Chloride (Sodium Chloride Flush Syringe 10 Ml) 10 ml IV BID [facility] Last Admin: 07/19/19 10:30 Dose: 10 ml Documented by: Sodium Chloride (Sodium Chloride Flush Syringe 10 Ml) 10 ml IV PRN PRN PRN Reason: LINE FLUSH Review of Systems All systems: negative Neurological: numbness, change in speech Physical Examination - Vital Signs Vital Signs: Vital Signs Temp Pulse Resp BP Pulse Ox 100.2 F H 102 H 18 116/72 97 07/18/19 17:20 07/18/19 17:20 07/18/19 17:20 07/18/19 17:20 07/18/19 17:20 - Physical Exam Narrative exam: Patient alert, awake, oriented 3. Follows complex commands. Patient noted to have left facial droop. Extraocular movements intact, deep is equal round reactive to light, decreased sensations on the left side of face. Noted to have right gaze preference, and extinction division on the left. 5 out of 5 strength noted in bilateral upper extremities, 4 out of 5 strength noted in bilateral lower extremities. Decreased sensations on the left upper and lower extremities. Patient noted to have 2+ reflexes in all extremities. Finger to nose and heel to davis bilaterally intact. - Constitutional General appearance: comfortable - EENT EENT: Present: ATNC, PERRL, mucous membranes moist, hearing intact - Respiratory Respiratory: Present: lungs clear, normal breath sounds - Cardiovascular Cardiovascular: Present: normal S1, normal S2 Extremities: Present: no peripheral edema bilatateraly, no clubbing, cyanosis - Gastrointestinal Gastrointestinal: Present: normoactive bowel sounds, soft, non-tender - Integumentary Integumentary: Present: normal - Psychiatric Psychiatric: Present: mood/affect appropriate - Level of Consciousness 1a. Level of Consciousness: alert/keenly responsive - LOC Questions 1b. LOC Questions: answers both correctly - LOC Command 1c. LOC Commands: performs tasks correctly - Best Gaze 2. Best Gaze: normal - Visual 3. Visual: partial hemianopia - Facial Palsy 4. Facial Palsy: partial paralysis - Motor Arm 5a. Motor Arm Left: no drift 5b. Motor Arm Right: no drift - Motor Leg 6a. Motor Leg Left: no drift 6b. Motor Leg Right: no drift - Limb Ataxia 7. Limb Ataxia: absent - Sensory 8. Sensory: mild/moderate sensory loss - Best Language 9. Best Language: no aphasia - Dysarthria 10. Dysarthria: mild/moderate dysarthria - Extinction and Inattention 11. Extinction/Inattention: visual/tactile inattention - Scoring Total Score: 6 Stroke Severity: Moderate Stroke Results - Laboratory Findings CBC and BMP: 07/18/19 18:37 07/18/19 18:37 Abnormal Lab Findings: Abnormal Labs 07/18/19 07/18/19 07/18/19 18:37 18:37 18:37 Hgb 14.7 H Hct 43.5 H [place] % (Auto) 10.2 H [place] # 1.1 H APTT 23.9 L Potassium Chloride Glucose POC Glucose Hemoglobin A1c Total Creatine Kinase 286 H Troponin T 0.319 H* Albumin HDL Cholesterol 29 L 07/18/19 07/18/19 07/18/19 18:37 18:37 20:40 Hgb Hct [place] % (Auto) [place] # APTT Potassium 3.4 L Chloride 97.5 L Glucose 220 H POC Glucose Hemoglobin A1c 7.8 H Total Creatine Kinase Troponin T 0.318 H* Albumin 3.4 L HDL Cholesterol 07/19/19 07/19/19 07/19/19 07:55 11:41 16:37 Hgb Hct [place] % (Auto) [place] # APTT Potassium Chloride Glucose POC Glucose 229 H 292 H 132 H Hemoglobin A1c Total Creatine Kinase Troponin T Albumin HDL Cholesterol Assessment and Plan Patient is a 63-year-old woman with a history of diabetes, hypertension, hyperlipidemia, and tobacco use, who presents with falls, left facial droop. According the patient's clinical findings, the patient has an acute ischemic stroke in the right MCA territory as well as the left occipital lobe. Plan: 1. Stroke: - MRI revealed stroke and right MCA territory as well as small stroke in left occipital lobe. Of note, there is petechial hemorrhage in right MCA infarct. This is indicative of likely cardioembolic etiology of stroke. Heart ultrasound unremarkable. Will check CTA head. Echocardiogram: EF 50-55%, left atrium normal size, bubble study indeterminant. Since patient had low-grade fever on admission and has b/l infarcts, will recommend YASSINE to rule out evidence of endocarditis. Continue aspirin 82mg daily Continue atorvastatin. LDL goal less than 70, current LDL 79. Telemetry monitoring while in-house. PT/OT/ST. Due to prophylaxis: Recommend Lovenox. 2. Hypertension: - Recommend target normotension, as it has been >48 hours since symptoms onset. - Will continue to follow patient. - Thank you for allowing me to take part in the care of this patient. Samson Vear MD Neurology
--- NOTE | 2019-07-19 22:25 | Cat Scan Report ---
CTA HEAD WITH CONTRAST HISTORY: Acute infarctions in the right middle cerebral artery territory and in the left medial parie jake lobe. COMPARISON: MRI scan CT scan obtained earlier today TECHNIQUE: Routine non-contrast CT Head, CTA of the head and post-contrast CT Head are performed. 3-D /MIP reformats postprocessed. All CT scans at this location are performed using CT dose reduction for ALARA by means of automated exposure control. CONTRAST: 100 ml of Omnipaque 350 FINDINGS: CTA Head: Intracranial vertebral arteries: No significant abnormality. Origin of left PICA is normal. Basilar artery: No significant abnormality. Posterior cerebral arteries: No significant abnormality. Intracranial internal carotid arteries: In the occipital cavernous segment of right internal carotid artery, significant atheromatous changes are seen with stenoses of approximately 80%. Distal cavernou s segment, clinoid, ophthalmic and the communicating segments of right internal carotid artery and ri ght internal carotid artery terminus are normal. On the left side, atherosclerotic calcification is seen. But I do not see stenoses in the left international relations professor al carotid artery terminus. Anterior cerebral arteries: No significant abnormality. Middle cerebral arteries: No significant abnormality. Dural venous sinuses:Not optimally opacified. No significant abnormality. Additional findings: None. IMPRESSION: Approximately 80% stenoses in the proximal cavernous segment of right internal carotid artery. [place] is normal. Signer Name: Michel Vaz MD Signed: 07/19/2019 10:21 PM Workstation Name: [id number]
[2019-07-19] MEDS: LOVENOX SUB-Q SCH (22:57)
[2019-07-20 05:57] LABS: BUN/Creatinine Ratio 13; Blood Urea Nitrogen 10 mg/dL (7-17); Calcium 8.7 mg/dL (8.4-10.2); Hemolysis Index 8
[2019-07-20] MEDS: HABITROL TD SCH (09:19)
[2019-07-20] MEDS: HumaLOG SUB-Q SCH ×4 (09:19→21:20)
[2019-07-20] MEDS: HALFPRIN EC PO SCH (09:20)
[2019-07-20] MEDS: SODIUM CHLORIDE FLUSH SYRINGE 10 ML IV SCH ×2 (09:21→21:21)
[2019-07-20] MEDS: PEPCID PO SCH ×2 (09:21→21:20)
[2019-07-20] MEDS: TYLENOL PO PRN (09:25)
--- NOTE | 2019-07-20 10:29 | Progress Note ---
Assessment and Plan Acute ischemic CVA Fever Hypertension Diabetes Elevated troponin COPD Tobacco abuse Echocardiogram: EF 50-55%, left atrium normal size, bubble study indeterminate. Neurology has recommend a YASSINE to rule out evidence of endocarditis. Discussed recommendation for YASSINE, over the phone, with her daughter. We will tentatively plan for a YASSINE Friday. Subjective Date of service: 07/20/19 Interval history: Patient has no complaints. No events on telemetry monitoring. Objective Vital Signs Temp Pulse Resp BP BP Pulse Ox 07/20/19 08:00 98.1 F 90 20 131/64 07/20/19 07:33 98.1 F 20 131/64 07/20/19 03:25 97.8 F 85 18 131/80 95 07/19/19 22:47 98.5 F 87 18 137/69 100 07/19/19 20:15 92 H 07/19/19 19:44 98.1 F 92 H 18 117/68 93 07/19/19 16:40 97.5 F L 18 114/69 07/19/19 15:00 90 07/19/19 14:20 94 07/19/19 12:11 97.9 F 56 L 18 132/67 96 - Physical Examination General: No Apparent Distress HEENT: Positive: PERRL Neck: Positive: trachea midline Cardiac: Positive: Reg Rate and Rhythm Lungs: Positive: Decreased Breath Sounds Neuro: Positive: Grossly Intact Extremities: Absent: edema - Labs and Meds Comprehensive Metabolic Panel 07/20/19 Range/Units 04:16 Sodium 141 (137-145) mmol/L Potassium 3.7 (3.6-5.0) mmol/L Chloride 99.2 (98-107) mmol/L Carbon Dioxide 27 (22-30) mmol/L BUN 10 (7-17) mg/dL Creatinine 0.8 (0.7-1.2) mg/dL Glucose 184 H (65-100) mg/dL Calcium 8.7 (8.4-10.2) mg/dL
--- NOTE | 2019-07-20 15:55 | Progress Note ---
Assessment and Plan Patient is a 63-year-old woman with a history of diabetes, hypertension, hyperlipidemia, and tobacco use, who presents with falls, left facial droop. According the patient's clinical findings, the patient has an acute ischemic stroke in the right MCA territory as well as the left occipital lobe. Plan: 1. Stroke: - MRI revealed stroke and right MCA territory as well as small stroke in left occipital lobe. Of note, there is petechial hemorrhage in right MCA infarct. This is indicative of likely cardioembolic etiology of stroke. carotid ultrasound unremarkable. - CTA head.revealed Rt. cavernous ICA 80% stenosis, however unlikely to be etiology of stroke, as 2 infarcts noted in b/l hemispheres. Echocardiogram: EF 50-55%, left atrium normal size, bubble study indeterminant. Since patient had low-grade fever on admission and has b/l infarcts, will recommend YASSINE to rule out evidence of endocarditis. Continue aspirin 81mg daily Continue atorvastatin. LDL goal less than 70, current LDL 79. Telemetry monitoring while in-house. PT/OT/ST. Due to prophylaxis: Recommend Lovenox. 2. Hypertension: - Recommend target normotension. - Will continue to follow patient. - Thank you for allowing me to take part in the care of this patient. Samson Vera MD Neurology Subjective Date of service: 07/20/19 Principal diagnosis: Stroke Interval history: No acute events overnight. Objective - Exam Narrative Exam: Patient alert, awake, oriented 3. Follows complex commands. Patient noted to have left facial droop. Extraocular movements intact, pupils equal round reactive to light, decreased sensations on the left side of face. Noted to have right gaze preference, and extinction to vision on the left. 5 out of 5 strength noted in bilateral upper extremities, 4 out of 5 strength noted in bilateral lower extremities. Decreased sensations on the left upper and lower extremities. Patient noted to have 2+ reflexes in all extremities. Finger to nose and heel to davis bilaterally intact. - Vital Sign Vital Signs - 12hr 07/20/19 07/20/19 07/20/19 07:33 08:00 11:39 Temperature 98.1 F 98.1 F 98.1 F Pulse Rate 90 85 Respiratory 20 20 20 Rate Blood Pressure 131/64 115/58 Blood Pressure 131/64 [Left] O2 Sat by Pulse 94 Oximetry - General Apperance Constitutional: comfortable - EENT EENT: ATNC, PERRL, mucous membranes moist, hearing intact - Respiratory Respiratory: lungs clear, normal breath sounds - Cardiovascular Cardiovascular: regular rate, normal S1, normal S2 Extremities: no peripheral edema bilat, no clubbing, cyanosis - Gastrointestinal Gastrointestinal: normoactive bowel sounds, soft, non-tender - Integumentary Integumentary: normal - Musculoskeletal Musculoskeletal: no fluid collection, no pain - Psychiatric Psychiatric: mood/affect appropriate - Laboratory Findings CBC and BMP: 07/18/19 18:37 07/20/19 04:16 Abnormal Lab Findings: Abnormal Labs 07/18/19 07/18/19 07/18/19 18:37 18:37 18:37 Hgb 14.7 H Hct 43.5 H [place] % (Auto) 10.2 H [place] # 1.1 H APTT 23.9 L Potassium Chloride Glucose POC Glucose Hemoglobin A1c Total Creatine Kinase 286 H Troponin T 0.319 H* Albumin HDL Cholesterol 29 L 07/18/19 07/18/19 07/18/19 18:37 18:37 20:40 Hgb Hct [place] % (Auto) [place] # APTT Potassium 3.4 L Chloride 97.5 L Glucose 220 H POC Glucose Hemoglobin A1c 7.8 H Total Creatine Kinase Troponin T 0.318 H* Albumin 3.4 L HDL Cholesterol 07/19/19 07/19/19 07/19/19 07:55 11:41 16:37 Hgb Hct [place] % (Auto) [place] # APTT Potassium Chloride Glucose POC Glucose 229 H 292 H 132 H Hemoglobin A1c Total Creatine Kinase Troponin T Albumin HDL Cholesterol 07/19/19 07/20/19 07/20/19 21:04 04:16 07:37 Hgb Hct [place] % (Auto) [place] # APTT Potassium Chloride Glucose 184 H POC Glucose 207 H 224 H Hemoglobin A1c Total Creatine Kinase Troponin T Albumin HDL Cholesterol 07/20/19 11:42 Hgb Hct [place] % (Auto) [place] # APTT Potassium Chloride Glucose POC Glucose 158 H Hemoglobin A1c Total Creatine Kinase Troponin T Albumin HDL Cholesterol
--- NOTE | 2019-07-20 17:06 | Progress Note ---
Assessment and Plan Assessment and plan: 64-year-old female with pmh of HTN and Diabetes presents to the emergency department via EMS complaining of Lt facial droop and right sided weakness. Very poor historian. Frequent falls recently. These symptoms are more than 24 hours. Has some slurring of speech. Per daughter who is at bedside, she first noticed the patient was acting strange the day before but the patient refused to go to the ER, the next day the patient became confused, facial droop was noted and the patient almost burnt what she was cooking prompting and ER visit. The patient had complained of shoulder pain for the past 2-3 days and chronic dizziness she unfortunately continues to smoke CT Head: IMPRESSION: 1. Acute, ischemic right middle cerebral infarction. Rt Shoulder Xray: Degenerative changes in Rt Humeral head Acute Ischemic Right MCA CVA/cardioembolic CVA * Not a TPA candidate due to timing of Event and Presentation * Neurology consulted, CVA work up ongoing, Start ASA, High dose statin therapy, Rehab eval including speech therapy * YASSINE tomorrow. NSTEMI: * Cardiology evaluated t performance statusatient. Possible stress test prior to DC Hypokalemia-supplemented in ED THC Use disorder and Tobacco use disorder * Extensive counselling provided to the patient on need to Quit tobacco use, 15 MINS COUNSELLING PROVIDED, PATIENT VERBALIZED UNDERSTANDING HTN * Resume BP control DM type 2 WITH hyperglycemia * Accucheck, AC/HS, Insulin therapy DJD, right shoulder * PT/OT eval and treat Obesity * Lifestyle modification therapy discussed in detail; DVT/GI Prophy and Mobility protocol History Interval history: Patient seen and examined medical records reviewed Patient complains of generalized weakness Neuro workup is consistent with embolic CVA Cardiology planning YASSINE tomorrow Vital signs noted Hospitalist Physical - Constitutional Vitals: Temp Pulse Resp BP Pulse Ox 98.1 F 85 20 115/58 94 07/20/19 11:39 07/20/19 11:39 07/20/19 11:39 07/20/19 11:39 07/20/19 11:39 General appearance: Present: no acute distress, well-nourished, obese - EENT Eyes: Present: PERRL, EOM intact - Neck Neck: Present: supple, normal ROM - Respiratory Respiratory effort: normal Respiratory: bilateral: diminished, rhonchi, negative: rales, wheezing - Cardiovascular Rhythm: regular Heart Sounds: Present: S1 & S2 - Extremities Extremities: no ischemia, No edema - Abdominal General gastrointestinal: soft, non-tender, non-distended, normal bowel sounds - Integumentary Integumentary: Present: clear, warm - Psychiatric Psychiatric: appropriate mood/affect, cooperative - Neurologic Neurologic: other (acute CVA with residual weakness) Results - Labs CBC & Chem 7: 07/18/19 18:37 07/20/19 04:16 Labs: Laboratory Last Values WBC 10.8 K/mm3 (4.5-11.0) 07/18/19 18:37 RBC 4.67 M/mm3 (3.65-5.03) 07/18/19 18:37 Hgb 14.7 gm/dl (10.1-14.3) H 07/18/19 18:37 Hct 43.5 % (30.3-42.9) H 07/18/19 18:37 MCV 93 fl (79-97) 07/18/19 18:37 MCH 31 pg (28-32) 07/18/19 18:37 MCHC 34 % (30-34) 07/18/19 18:37 RDW 14.5 % (13.2-15.2) 07/18/19 18:37 Plt Count 258 K/mm3 (140-440) 07/18/19 18:37 Lymph % (Auto) 25.3 % (13.4-35.0) 07/18/19 18:37 [place] % (Auto) 10.2 % (0.0-7.3) H 07/18/19 18:37 Eos % (Auto) 0.7 % (0.0-4.3) 07/18/19 18:37 Baso % (Auto) 1.3 % (0.0-1.8) 07/18/19 18:37 Lymph # 2.7 K/mm3 (1.2-5.4) 07/18/19 18:37 [place] # 1.1 K/mm3 (0.0-0.8) H 07/18/19 18:37 Eos # 0.1 K/mm3 (0.0-0.4) 07/18/19 18:37 Baso # 0.1 K/mm3 (0.0-0.1) 07/18/19 18:37 Seg Neutrophils % 62.5 % (40.0-70.0) 07/18/19 18:37 Seg Neutrophils # 6.8 K/mm3 (1.8-7.7) 07/18/19 18:37 PT 12.7 Sec. (12.2-14.9) 07/18/19 18:37 INR 0.98 (0.87-1.13) 07/18/19 18:37 APTT 23.9 Sec. (24.2-36.6) L 07/18/19 18:37 Sodium 141 mmol/L (137-145) 07/20/19 04:16 Potassium 3.7 mmol/L (3.6-5.0) 07/20/19 04:16 Chloride 99.2 mmol/L (98-107) 07/20/19 04:16 Carbon Dioxide 27 mmol/L (22-30) 07/20/19 04:16 19 mmol/L 07/20/19 04:16 BUN 10 mg/dL (7-17) 07/20/19 04:16 0.8 mg/dL (0.7-1.2) 07/20/19 04:16 Estimated GFR > 60 ml/min 07/20/19 04:16 13 % 07/20/19 04:16 Glucose 184 mg/dL (65-100) H 07/20/19 04:16 POC Glucose 140 (70-105) H 07/20/19 16:20 7.8 % (4-6) H 07/18/19 18:37 Calcium 8.7 mg/dL (8.4-10.2) 07/20/19 04:16 0.40 mg/dL (0.1-1.2) 07/18/19 18:37 AST 24 units/L (5-40) 07/18/19 18:37 ALT 20 units/L (7-56) 07/18/19 18:37 98 units/L (35-129) 07/18/19 18:37 286 units/L (30-135) H 07/18/19 18:37 CK-MB (CK-2) 1.7 ng/mL (0.0-4.0) 07/18/19 18:37 CK-MB (CK-2) Rel Index 0.5 (0-4) 07/18/19 18:37 0.318 ng/mL (0.00-0.029) H* 07/18/19 20:40 7.3 g/dL (6.3-8.2) 07/18/19 18:37 3.4 g/dL (3.9-5) L 07/18/19 18:37 0.9 % 07/18/19 18:37 Triglycerides 142 mg/dL (2-149) 07/18/19 18:37 Cholesterol 122 mg/dL (50-199) 07/18/19 18:37 79 mg/dL (50-130) 07/18/19 18:37 29 mg/dL (40-59) L 07/18/19 18:37 4.20 % 07/18/19 18:37 TSH 1.760 mlU/mL (0.270-4.200) 07/18/19 18:37 Yellow (Yellow) 07/19/19 06:31 Slightly-cloudy (Clear) 07/19/19 06:31 6.0 (5.0-7.0) 07/19/19 06:31 Ur Specific [place] 1.018 (1.003-1.030) 07/19/19 06:31 <15 mg/dl mg/dL (Negative) 07/19/19 06:31 Neg mg/dL (Negative) 07/19/19 06:31 Neg mg/dL (Negative) 07/19/19 06:31 Neg (Negative) 07/19/19 06:31 Neg (Negative) 07/19/19 06:31 Neg (Negative) 07/19/19 06:31 < 2.0 mg/dL (<2.0) 07/19/19 06:31 Ur Leukocyte Esterase Neg (Negative) 07/19/19 06:31 3.0 /HPF (0.0-6.0) 07/19/19 06:31 3.0 /HPF (0.0-6.0) 07/19/19 06:31 U Epithel Cells (Auto) 3.0 /HPF (0-13.0) 07/19/19 06:31 Few /HPF 07/19/19 06:31 Presumptive negative 07/19/19 06:31 Presumptive negative 07/19/19 06:31 Ur Barbiturates Screen Presumptive negative 07/19/19 06:31 Ur Phencyclidine Scrn Presumptive negative 07/19/19 06:31 Ur Amphetamines Screen Presumptive negative 07/19/19 06:31 U Benzodiazepines Scrn Presumptive negative 07/19/19 06:31 Presumptive negative 07/19/19 06:31 U Marijuana (THC) Screen Presumptive positive 07/19/19 06:31 Disclamer 07/19/19 06:31 Plasma/Serum Alcohol < 0.01 % (0-0.07) 07/18/19 18:37 Active Medications - Current Medications Current Medications: Generic Name Dose Route Start Last Admin Trade Name Freq PRN Reason Stop Dose Admin Acetaminophen 650 mg 07/18/19 22:48 07/20/19 09:25 Tylenol PO 650 mg Q4H PRN Administration Pain MILD(1-3)/Fever >100.5/BRIDGES Aspirin 81 mg 07/20/19 10:00 07/20/19 09:20 Halfprin Ec PO 81 mg QDAY [facility] Administration Atorvastatin Calcium 40 mg 07/19/19 22:00 07/19/19 22:09 Lipitor PO 40 mg QHS [facility] Administration Dicyclomine HCl 10 mg 07/18/19 22:47 Bentyl PO QID PRN Pain Enoxaparin Sodium 40 mg 07/19/19 22:00 07/19/19 22:57 Lovenox SUB-Q 40 mg QDAY@2200 [facility] Administration Famotidine 20 mg 07/18/19 23:00 07/20/19 09:21 Pepcid PO 20 mg BID [facility] Administration Hydromorphone HCl 0.5 mg 07/18/19 22:49 Dilaudid IV Q3H PRN Pain , Severe (7-10) Insulin Human Lispro 0 unit 07/19/19 11:30 07/20/19 13:57 Humalog SUB-Q 2 unit ACHS [facility] Administration Protocol Nicotine 14 mg 07/19/19 10:00 07/20/19 09:19 Habitrol TD 14 mg QDAY [facility] Administration Ondansetron HCl 4 mg 07/18/19 22:48 Zofran IV Q8H PRN Nausea And Vomiting Sodium Chloride 10 ml 07/19/19 10:00 07/20/19 09:21 Sodium Chloride Flush Syringe 10 Ml IV 10 ml BID [facility] Administration Sodium Chloride 10 ml 07/18/19 22:50 07/19/19 22:10 Sodium Chloride Flush Syringe 10 Ml IV 10 ml PRN PRN Administration LINE FLUSH
[2019-07-20] MEDS: DILAUDID IV PRN (21:19)
[2019-07-20] MEDS: LOVENOX SUB-Q SCH (21:20)
--- NOTE | 2019-07-21 07:31 | Anesthesia Consultation ---
Anesthesia Consult and Med Hx Date of service: 07/21/19 - Airway Anesthetic Teeth Evaluation: Poor (multiple missing, broken teeth) ROM Head & Neck: Adequate Mental/Hyoid Distance: Adequate Mallampati Class: Class III Intubation Access Assessment: Possibly Difficult - Pre-Operative Health Status ASA Pre-Surgery Classification: ASA3 Proposed Anesthetic Plan: MAC - Pulmonary Hx Smoking: Yes (current smoker, 1/2 p/day x 45 years) Hx Asthma: Yes COPD: No Hx Pneumonia: No - Cardiovascular System Hx Hypertension: Yes - Central Nervous System CVA: Yes (recent stroke with left facial droop and slurred speech) Hx Psychiatric Problems: Yes (anxiety) - Endocrine Hx End Stage Renal Disease: No Hx Insulin Dependent Diabetes: Yes - Hematic Hx Anemia: Yes - Other Systems Hx Alcohol Use: Yes Hx Substance Use: Yes Hx Obesity: Yes (BMI 36.6)
--- NOTE | 2019-07-21 07:32 | Anesthesia Day of Surgery ---
Anesthesia Day of Surgery - Day of Surgery Patient Examined: Yes Patient H&P Reviewed: Yes Patient is NPO: Yes
[2019-07-21] MEDS ORDERED: XYLOCAINE MPF 2% ONE (07:46)
[2019-07-21] MEDS ORDERED: DIPRIVAN 10 MG/ML IV ONE ×2 (07:46)
[2019-07-21] MEDS ORDERED: HURRICAINE ONE 20% TOPICAL SPRAY MM NR (08:00)
[2019-07-21] MEDS ORDERED: NACL 0.9% 500 ML 500 ML IV SCH (08:00)
[2019-07-21] MEDS: HumaLOG SUB-Q SCH ×4 (08:00→21:32)
[2019-07-21] MEDS: HALFPRIN EC PO SCH (11:37)
[2019-07-21] MEDS: PEPCID PO SCH ×3 (11:37→21:30)
[2019-07-21] MEDS: HABITROL TD SCH (11:37)
[2019-07-21] MEDS: SODIUM CHLORIDE FLUSH SYRINGE 10 ML IV SCH ×2 (11:37→21:31)
[2019-07-21] MEDS: DILAUDID IV PRN ×3 (13:31→22:54)
--- NOTE | 2019-07-21 14:37 | Progress Note ---
Assessment and Plan Acute ischemic CVA Fever Hypertension Diabetes Elevated troponin COPD Tobacco abuse Echocardiogram: EF 50-55%, left atrium normal size, bubble study indeterminate. YASSINE performed today - Normal LV function. No vegetation or mass present in the left atrium, or on the valves. Saline contrast performed - no PFO was present Subjective Date of service: 07/21/19 Principal diagnosis: Stroke Interval history: No acute events. Resting comfortably. Objective Vital Signs Temp Temp Temp Pulse Pulse Pulse Pulse 07/21/19 09:27 100 H 07/21/19 09:16 98 H 07/21/19 09:08 98 H 07/21/19 08:56 99 H 07/21/19 08:40 98.5 F 103 H 07/21/19 08:39 101 H 07/21/19 08:34 106 H 07/21/19 08:00 90 07/21/19 07:35 98.6 F 87 07/21/19 04:04 98.2 F 90 07/20/19 23:29 98.0 F 85 07/20/19 20:30 91 H 07/20/19 19:18 98.3 F 91 H 07/20/19 16:11 97.7 F 94 H Resp Resp Resp Resp BP BP BP 07/21/19 09:27 18 109/59 07/21/19 09:16 16 112/59 07/21/19 09:08 18 121/65 07/21/19 08:56 16 107/66 07/21/19 08:40 26 H 95/64 07/21/19 08:39 25 H 124/77 07/21/19 08:34 12 131/103 07/21/19 08:00 16 07/21/19 07:35 15 07/21/19 04:04 18 128/78 07/20/19 23:29 18 113/73 07/20/19 20:30 07/20/19 19:18 18 130/66 07/20/19 16:11 20 119/88 BP Pulse Ox Pulse Ox Pulse Ox Pulse Ox 07/21/19 09:27 100 07/21/19 09:16 98 07/21/19 09:08 100 07/21/19 08:56 99 07/21/19 08:40 97 07/21/19 08:39 90 07/21/19 08:34 89 07/21/19 08:00 133/91 100 07/21/19 07:35 118/65 100 07/21/19 04:04 96 07/20/19 23:29 96 07/20/19 20:30 07/20/19 19:18 97 07/20/19 16:11 99 - Physical Examination General: No Apparent Distress HEENT: Positive: PERRL Neck: Positive: trachea midline Neuro: Positive: Grossly Intact Extremities: Absent: edema - Imaging and Cardiology EKG: report reviewed (NSR 100/min)
--- NOTE | 2019-07-21 15:53 | Progress Note ---
Assessment and Plan Patient is a 63-year-old woman with a history of diabetes, hypertension, hyperlipidemia, and tobacco use, who presents with falls, left facial droop. According the patient's clinical findings, the patient has an acute ischemic stroke in the right MCA territory as well as the left occipital lobe. Plan: 1. Stroke: - MRI revealed stroke and right MCA territory as well as small stroke in left occipital lobe. Of note, there is petechial hemorrhage in right MCA infarct. This is indicative of likely cardioembolic etiology of stroke. carotid ultrasound unremarkable. - CTA head.revealed Rt. cavernous ICA 80% stenosis, however unlikely to be etiology of stroke, as 2 infarcts noted in b/l hemispheres. Echocardiogram: EF 50-55%, left atrium normal size, bubble study indeterminant. YASSINE: no evidence of PFO, no vegetation or thrombus noted. Continue aspirin 81mg daily Continue atorvastatin. LDL goal less than 70, current LDL 79. Telemetry monitoring while in-house. PT/OT/ST. Due to prophylaxis: Recommend Lovenox. - Recommend for long-term cardiac monitoring as outpatient with 30-day MCOT or ILR. - Recommend for patient to follow up outpatient with neurology 2-3 weeks after discharge/ 2. Hypertension: - Recommend target normotension. - As workup is complete, and treatment plan is in place, will sign off. Please call with any questions. - Thank you for allowing me to take part in the care of this patient. Samson Vera MD Neurology Subjective Date of service: 07/21/19 Principal diagnosis: Stroke Interval history: No acute events overnight. Objective - Exam Narrative Exam: Patient alert, awake, oriented 3. Follows complex commands. Patient noted to have left facial droop. Extraocular movements intact, pupils equal round reactive to light, decreased sensations on the left side of face. Noted to have right gaze preference, and extinction to vision on the left. 5 out of 5 strength noted in bilateral upper extremities, 4 out of 5 strength noted in bilateral lower extremities. Decreased sensations on the left upper and lower extremities. Patient noted to have 2+ reflexes in all extremities. Finger to nose and heel to davis bilaterally intact. - Vital Sign Vital Signs - 12hr 07/21/19 07/21/19 07/21/19 04:04 07:35 08:00 Temperature 98.2 F Temperature [ Post-Procedure] Temperature [ 98.6 F Pre-Procedure] Pulse Rate 90 Pulse Rate [ Intra-Procedure ] Pulse Rate [ Post-Procedure] Pulse Rate [Pre 87 90 -Procedure] Respiratory 18 Rate Respiratory Rate [Intra- Procedure] Respiratory Rate [Post- Procedure] Respiratory 15 16 Rate [Pre- Procedure] Blood Pressure 128/78 Blood Pressure [Intra- Procedure] Blood Pressure [Post-Procedure ] Blood Pressure 118/65 133/91 [Pre-Procedure] O2 Sat by Pulse 96 Oximetry O2 Sat by Pulse Oximetry [ Intra-Procedure ] O2 Sat by Pulse Oximetry [Post -Procedure] O2 Sat by Pulse 100 100 Oximetry [Pre- Procedure] 07/21/19 07/21/19 07/21/19 08:34 08:39 08:40 Temperature Temperature [ 98.5 F Post-Procedure] Temperature [ Pre-Procedure] Pulse Rate Pulse Rate [ 106 H Intra-Procedure ] Pulse Rate [ 101 H 103 H Post-Procedure] Pulse Rate [Pre -Procedure] Respiratory Rate Respiratory 12 Rate [Intra- Procedure] Respiratory 25 H 26 H Rate [Post- Procedure] Respiratory Rate [Pre- Procedure] Blood Pressure Blood Pressure 131/103 [Intra- Procedure] Blood Pressure 124/77 95/64 [Post-Procedure ] Blood Pressure [Pre-Procedure] O2 Sat by Pulse Oximetry O2 Sat by Pulse 89 Oximetry [ Intra-Procedure ] O2 Sat by Pulse 90 97 Oximetry [Post -Procedure] O2 Sat by Pulse Oximetry [Pre- Procedure] 07/21/19 07/21/19 07/21/19 08:56 09:08 09:16 Temperature Temperature [ Post-Procedure] Temperature [ Pre-Procedure] Pulse Rate Pulse Rate [ Intra-Procedure ] Pulse Rate [ 99 H 98 H 98 H Post-Procedure] Pulse Rate [Pre -Procedure] Respiratory Rate Respiratory Rate [Intra- Procedure] Respiratory 16 18 16 Rate [Post- Procedure] Respiratory Rate [Pre- Procedure] Blood Pressure Blood Pressure [Intra- Procedure] Blood Pressure 107/66 121/65 112/59 [Post-Procedure ] Blood Pressure [Pre-Procedure] O2 Sat by Pulse Oximetry O2 Sat by Pulse Oximetry [ Intra-Procedure ] O2 Sat by Pulse 99 100 98 Oximetry [Post -Procedure] O2 Sat by Pulse Oximetry [Pre- Procedure] 07/21/19 09:27 Temperature Temperature [ Post-Procedure] Temperature [ Pre-Procedure] Pulse Rate Pulse Rate [ Intra-Procedure ] Pulse Rate [ 100 H Post-Procedure] Pulse Rate [Pre -Procedure] Respiratory Rate Respiratory Rate [Intra- Procedure] Respiratory 18 Rate [Post- Procedure] Respiratory Rate [Pre- Procedure] Blood Pressure Blood Pressure [Intra- Procedure] Blood Pressure 109/59 [Post-Procedure ] Blood Pressure [Pre-Procedure] O2 Sat by Pulse Oximetry O2 Sat by Pulse Oximetry [ Intra-Procedure ] O2 Sat by Pulse 100 Oximetry [Post -Procedure] O2 Sat by Pulse Oximetry [Pre- Procedure] - General Apperance Constitutional: comfortable - EENT EENT: ATNC, PERRL, mucous membranes moist, hearing intact - Respiratory Respiratory: lungs clear, normal breath sounds - Cardiovascular Cardiovascular: regular rate, normal S1, normal S2 Extremities: no peripheral edema bilat, no clubbing, cyanosis - Gastrointestinal Gastrointestinal: normoactive bowel sounds, soft, non-tender - Integumentary Integumentary: normal - Psychiatric Psychiatric: mood/affect appropriate - Laboratory Findings CBC and BMP: 07/18/19 18:37 07/20/19 04:16 Abnormal Lab Findings: Abnormal Labs 07/18/19 07/18/19 07/18/19 18:37 18:37 18:37 Hgb 14.7 H Hct 43.5 H [place] % (Auto) 10.2 H [place] # 1.1 H APTT 23.9 L Potassium Chloride Glucose POC Glucose Hemoglobin A1c Total Creatine Kinase 286 H Troponin T 0.319 H* Albumin HDL Cholesterol 29 L 07/18/19 07/18/19 07/18/19 18:37 18:37 20:40 Hgb Hct [place] % (Auto) [place] # APTT Potassium 3.4 L Chloride 97.5 L Glucose 220 H POC Glucose Hemoglobin A1c 7.8 H Total Creatine Kinase Troponin T 0.318 H* Albumin 3.4 L HDL Cholesterol 07/19/19 07/19/19 07/19/19 07:55 11:41 16:37 Hgb Hct [place] % (Auto) [place] # APTT Potassium Chloride Glucose POC Glucose 229 H 292 H 132 H Hemoglobin A1c Total Creatine Kinase Troponin T Albumin HDL Cholesterol 07/19/19 07/20/19 07/20/19 21:04 04:16 07:37 Hgb Hct [place] % (Auto) [place] # APTT Potassium Chloride Glucose 184 H POC Glucose 207 H 224 H Hemoglobin A1c Total Creatine Kinase Troponin T Albumin HDL Cholesterol 07/20/19 07/20/19 07/20/19 11:42 16:20 20:06 Hgb Hct [place] % (Auto) [place] # APTT Potassium Chloride Glucose POC Glucose 158 H 140 H 205 H Hemoglobin A1c Total Creatine Kinase Troponin T Albumin HDL Cholesterol 07/21/19 12:42 Hgb Hct [place] % (Auto) [place] # APTT Potassium Chloride Glucose POC Glucose 212 H Hemoglobin A1c Total Creatine Kinase Troponin T Albumin HDL Cholesterol
--- NOTE | 2019-07-21 17:47 | Progress Note ---
Assessment and Plan Assessment and plan: 64-year-old female with pmh of HTN and Diabetes presents to the emergency department via EMS complaining of Lt facial droop and right sided weakness. Very poor historian. Frequent falls recently. These symptoms are more than 24 hours. Has some slurring of speech. Per daughter who is at bedside, she first noticed the patient was acting strange the day before but the patient refused to go to the ER, the next day the patient became confused, facial droop was noted and the patient almost burnt what she was cooking prompting and ER visit. The patient had complained of shoulder pain for the past 2-3 days and chronic dizziness she unfortunately continues to smoke CT Head: IMPRESSION: 1. Acute, ischemic right middle cerebral infarction. Rt Shoulder Xray: Degenerative changes in Rt Humeral head --Acute Right MCA CVA/cardioembolic CVA Not a TPA candidate due to timing of Event and Presentation Neurology following, neuro workup noted YASSINE did not reveal any shunt or vegetations/endocarditis Cardiac monitoring to rule out the arrhythmias upon discharge --NSTEMI: Positive troponins/nonspecific Cardiology following ,no plans of further cardiac workup as patient does not have any chest pain --Hypokalemia-supplemented, potassium levels normal --THC Use disorder and Tobacco use : Extensive counselling, advised to quit tobacco and marijuana use the patient verbalized understanding --HTN: Moderate Control , continue current antihypertensives and when necessary medications Resume BP control --DM type 2 WITH hyperglycemia Accucheck, AC/HS, Insulin therapy --DJD, right shoulder PT/OT eval and treat --Obesity; hematocrit 36.6 Advised weight reduction,lifestyle modification . DVT/GI Prophy and Mobility protocol Physical therapy and occupational therapy rehabilitation PT Recommend subacute, due to insurance reasons Patient would benefit by home health and home PT Possible Discharge in 1-2 days if stable History Interval history: Patient seen and examined and medical records reviewed Feels better,no complaints vital signs noted Hospitalist Physical - Constitutional Vitals: Temp Pulse Resp BP Pulse Ox 98.5 F 100 H 18 109/59 100 07/21/19 08:40 07/21/19 09:27 07/21/19 09:27 07/21/19 09:27 07/21/19 09:27 General appearance: Present: no acute distress, well-nourished, obese - EENT Eyes: Present: PERRL, EOM intact - Neck Neck: Present: supple, normal ROM - Respiratory Respiratory effort: normal Respiratory: bilateral: diminished, negative: rales, rhonchi, wheezing - Cardiovascular Rhythm: regular Heart Sounds: Present: S1 & S2 - Extremities Extremities: no ischemia, No edema - Abdominal General gastrointestinal: soft, non-tender, non-distended, normal bowel sounds - Integumentary Integumentary: Present: clear, warm - Psychiatric Psychiatric: appropriate mood/affect, cooperative - Neurologic Neurologic: other (embolic CVA with residual weakness) Results - Labs CBC & Chem 7: 07/18/19 18:37 07/20/19 04:16 Labs: Laboratory Last Values WBC 10.8 K/mm3 (4.5-11.0) 07/18/19 18:37 RBC 4.67 M/mm3 (3.65-5.03) 07/18/19 18:37 Hgb 14.7 gm/dl (10.1-14.3) H 07/18/19 18:37 Hct 43.5 % (30.3-42.9) H 07/18/19 18:37 MCV 93 fl (79-97) 07/18/19 18:37 MCH 31 pg (28-32) 07/18/19 18:37 MCHC 34 % (30-34) 07/18/19 18:37 RDW 14.5 % (13.2-15.2) 07/18/19 18:37 Plt Count 258 K/mm3 (140-440) 07/18/19 18:37 Lymph % (Auto) 25.3 % (13.4-35.0) 07/18/19 18:37 [place] % (Auto) 10.2 % (0.0-7.3) H 07/18/19 18:37 Eos % (Auto) 0.7 % (0.0-4.3) 07/18/19 18:37 Baso % (Auto) 1.3 % (0.0-1.8) 07/18/19 18:37 Lymph # 2.7 K/mm3 (1.2-5.4) 07/18/19 18:37 [place] # 1.1 K/mm3 (0.0-0.8) H 07/18/19 18:37 Eos # 0.1 K/mm3 (0.0-0.4) 07/18/19 18:37 Baso # 0.1 K/mm3 (0.0-0.1) 07/18/19 18:37 Seg Neutrophils % 62.5 % (40.0-70.0) 07/18/19 18:37 Seg Neutrophils # 6.8 K/mm3 (1.8-7.7) 07/18/19 18:37 PT 12.7 Sec. (12.2-14.9) 07/18/19 18:37 INR 0.98 (0.87-1.13) 07/18/19 18:37 APTT 23.9 Sec. (24.2-36.6) L 07/18/19 18:37 Sodium 141 mmol/L (137-145) 07/20/19 04:16 Potassium 3.7 mmol/L (3.6-5.0) 07/20/19 04:16 Chloride 99.2 mmol/L (98-107) 07/20/19 04:16 Carbon Dioxide 27 mmol/L (22-30) 07/20/19 04:16 19 mmol/L 07/20/19 04:16 BUN 10 mg/dL (7-17) 07/20/19 04:16 0.8 mg/dL (0.7-1.2) 07/20/19 04:16 Estimated GFR > 60 ml/min 07/20/19 04:16 13 % 07/20/19 04:16 Glucose 184 mg/dL (65-100) H 07/20/19 04:16 POC Glucose 178 (70-105) H 07/21/19 17:21 7.8 % (4-6) H 07/18/19 18:37 Calcium 8.7 mg/dL (8.4-10.2) 07/20/19 04:16 0.40 mg/dL (0.1-1.2) 07/18/19 18:37 AST 24 units/L (5-40) 07/18/19 18:37 ALT 20 units/L (7-56) 07/18/19 18:37 98 units/L (35-129) 07/18/19 18:37 286 units/L (30-135) H 07/18/19 18:37 CK-MB (CK-2) 1.7 ng/mL (0.0-4.0) 07/18/19 18:37 CK-MB (CK-2) Rel Index 0.5 (0-4) 07/18/19 18:37 0.318 ng/mL (0.00-0.029) H* 07/18/19 20:40 7.3 g/dL (6.3-8.2) 07/18/19 18:37 3.4 g/dL (3.9-5) L 07/18/19 18:37 0.9 % 07/18/19 18:37 Triglycerides 142 mg/dL (2-149) 07/18/19 18:37 Cholesterol 122 mg/dL (50-199) 07/18/19 18:37 79 mg/dL (50-130) 07/18/19 18:37 29 mg/dL (40-59) L 07/18/19 18:37 4.20 % 07/18/19 18:37 TSH 1.760 mlU/mL (0.270-4.200) 07/18/19 18:37 Yellow (Yellow) 07/19/19 06:31 Slightly-cloudy (Clear) 07/19/19 06:31 6.0 (5.0-7.0) 07/19/19 06:31 Ur Specific [place] 1.018 (1.003-1.030) 07/19/19 06:31 <15 mg/dl mg/dL (Negative) 07/19/19 06:31 Neg mg/dL (Negative) 07/19/19 06:31 Neg mg/dL (Negative) 07/19/19 06:31 Neg (Negative) 07/19/19 06:31 Neg (Negative) 07/19/19 06:31 Neg (Negative) 07/19/19 06:31 < 2.0 mg/dL (<2.0) 07/19/19 06:31 Ur Leukocyte Esterase Neg (Negative) 07/19/19 06:31 3.0 /HPF (0.0-6.0) 07/19/19 06:31 3.0 /HPF (0.0-6.0) 07/19/19 06:31 U Epithel Cells (Auto) 3.0 /HPF (0-13.0) 07/19/19 06:31 Few /HPF 07/19/19 06:31 Presumptive negative 07/19/19 06:31 Presumptive negative 07/19/19 06:31 Ur Barbiturates Screen Presumptive negative 07/19/19 06:31 Ur Phencyclidine Scrn Presumptive negative 07/19/19 06:31 Ur Amphetamines Screen Presumptive negative 07/19/19 06:31 U Benzodiazepines Scrn Presumptive negative 07/19/19 06:31 Presumptive negative 07/19/19 06:31 U Marijuana (THC) Screen Presumptive positive 07/19/19 06:31 Disclamer 07/19/19 06:31 Plasma/Serum Alcohol < 0.01 % (0-0.07) 07/18/19 18:37 Active Medications - Current Medications Current Medications: Generic Name Dose Route Start Last Admin Trade Name Freq PRN Reason Stop Dose Admin Acetaminophen 650 mg 07/18/19 22:48 07/20/19 09:25 Tylenol PO 650 mg Q4H PRN Administration Pain MILD(1-3)/Fever >100.5/BRIDGES Aspirin 81 mg 07/20/19 10:00 07/21/19 11:37 Halfprin Ec PO 81 mg QDAY BAUTISTA Administration Atorvastatin Calcium 40 mg 07/19/19 22:00 07/20/19 21:20 Lipitor PO 40 mg QHS BAUTISTA Administration Dicyclomine HCl 10 mg 07/18/19 22:47 Bentyl PO QID PRN Pain Enoxaparin Sodium 40 mg 07/19/19 22:00 07/20/19 21:20 Lovenox SUB-Q 40 mg QDAY@2200 BAUTISTA Administration Famotidine 20 mg 07/18/19 23:00 07/21/19 11:38 Pepcid PO 20 mg BID BAUTISTA Administration Hydromorphone HCl 0.5 mg 07/18/19 22:49 07/21/19 13:31 Dilaudid IV 0.5 mg Q3H PRN Administration Pain , Severe (7-10) Sodium Chloride 500 mls @ 50 mls/hr 07/21/19 08:00 07/21/19 08:00 Nacl 0.9% 500 Ml IV 50 mls/hr DIRECT BAUTISTA Administration Insulin Human Lispro 0 unit 07/19/19 11:30 07/20/19 21:20 Humalog SUB-Q 3 unit ACHS BAUTISTA Administration Protocol Nicotine 14 mg 07/19/19 10:00 07/21/19 11:37 Habitrol TD 14 mg QDAY BAUTISTA Administration Ondansetron HCl 4 mg 07/18/19 22:48 Zofran IV Q8H PRN Nausea And Vomiting Sodium Chloride 10 ml 07/19/19 10:00 07/21/19 11:37 Sodium Chloride Flush Syringe 10 Ml IV 10 ml BID BAUTISTA Administration Sodium Chloride 10 ml 07/18/19 22:50 07/19/19 22:10 Sodium Chloride Flush Syringe 10 Ml IV 10 ml PRN PRN Administration LINE FLUSH
[2019-07-21] MEDS: LOVENOX SUB-Q SCH (21:30)
--- NOTE | 2019-07-22 09:18 | Progress Note ---
Assessment and Plan Acute ischemic CVA Right ICA stenosis by head CT scan Fever Hypertension Diabetes Elevated troponin COPD Tobacco abuse Echocardiogram: EF 50-55%, left atrium normal size, bubble study indeterminate. YASSINE -reports a normal LV function. No evidence of vegetation, mass, or PFO. Conservative cardiac management. Subjective Date of service: 07/22/19 Principal diagnosis: Stroke Interval history: Patient has no complaints. No events on telemetry monitoring. Objective Vital Signs Temp Pulse Pulse Pulse Resp Resp BP 07/22/19 07:38 98.5 F 82 18 121/77 07/22/19 06:00 87 07/22/19 03:48 98.5 F 87 19 128/77 07/21/19 23:03 97.2 F L 87 18 122/74 07/21/19 22:00 87 07/21/19 21:33 85 18 07/21/19 19:14 97.8 F 85 18 127/79 07/21/19 16:20 97.6 F 82 18 125/76 07/21/19 12:33 97.1 F L 94 H 18 132/78 07/21/19 09:27 100 H 18 BP Pulse Ox Pulse Ox 07/22/19 07:38 95 07/22/19 06:00 07/22/19 03:48 93 07/21/19 23:03 93 07/21/19 22:00 07/21/19 21:33 07/21/19 19:14 97 07/21/19 16:20 98 07/21/19 12:33 95 07/21/19 09:27 109/59 100 - Physical Examination General: No Apparent Distress HEENT: Positive: PERRL Neck: Positive: trachea midline Cardiac: Positive: Reg Rate and Rhythm Lungs: Positive: Decreased Breath Sounds Neuro: Positive: Grossly Intact Extremities: Absent: edema
[2019-07-22] MEDS: HABITROL TD SCH (09:40)
[2019-07-22] MEDS: HALFPRIN EC PO SCH (09:40)
[2019-07-22] MEDS: HumaLOG SUB-Q SCH ×3 (09:41→22:50)
[2019-07-22] MEDS: TYLENOL PO PRN (10:53)
--- NOTE | 2019-07-22 12:58 | Discharge Summary ---
Providers - Providers Date of Admission: 07/18/19 20:09 Date of discharge: 07/23/19 Attending physician: JOESPH GARCIA 07/18/19 22:49 Consult to Physician [CONS] Routine Comment: Consulting Provider: RICH HOGAN Physician Instructions: Reason For Exam: acute CVA 07/18/19 22:50 Occupational Therapy Evaluate and Treat [CONS] Routine Comment: Reason For Exam: Neuro deficits Physical Therapy Evaluation and Treat [CONS] Routine Comment: Reason For Exam: Neuro deficits 07/19/19 06:33 Consult to Physician [CONS] Routine Comment: Consulting Provider: DARIAN HENDRICKSON Physician Instructions: Reason For Exam: Elevated Troponin 07/19/19 12:52 Speech Therapy Evaluation and Treat [CONS] Routine Reason For Exam: cva Primary care physician: SINK CUTTER Hospitalization Reason for admission: left-sided facial droop and weakness Condition: Stable Hospital course: 64-year-old female with pmh of HTN and Diabetes presents to the emergency department via EMS complaining of Lt facial droop and right sided weakness. Very poor historian. Frequent falls recently. These symptoms are more than 24 hours. Has some slurring of speech. Per daughter who is at bedside, she first noticed the patient was acting strange the day before but the patient refused to go to the ER, the next day the patient became confused, facial droop was noted and the patient almost burnt what she was cooking prompting and ER visit. The patient had complained of shoulder pain for the past 2-3 days and chronic dizziness she unfortunately continues to smoke CT Head: IMPRESSION: 1. Acute, ischemic right middle cerebral infarction. Rt Shoulder Xray: Degenerative changes in Rt Humeral head --Acute Right MCA CVA/cardioembolic CVA Not a TPA candidate due to timing of Event and Presentation Neurology following, neuro workup noted YASSINE did not reveal any shunt or vegetations/endocarditis Cardiac monitoring to rule out the arrhythmias upon discharge --NSTEMI: Positive troponins/nonspecific Cardiology following , stress test is negative Follow febrile up cardiology per schedule --Hypokalemia-supplemented, potassium levels normal --THC Use disorder and Tobacco use : Extensive counselling, advised to quit tobacco and marijuana use the patient verbalized understanding --HTN: Moderate Control , continue current antihypertensives and when necessary medications Resume BP control --DM type 2 WITH hyperglycemia Accucheck, AC/HS, Insulin therapy --DJD, right shoulder PT/OT eval and treat --Obesity; hematocrit 36.6 Advised weight reduction,lifestyle modification . DVT/GI Prophy and Mobility protocol Physical therapy and occupational therapy rehabilitation PT Recommend subacute, due to insurance reasons Patient would benefit by home health and home PT Possible Discharge in 1-2 days if stable Disposition: [id number]-06 HOME UNDER HOME HLTH Time spent for discharge: 32 min Core Measure Documentation - Palliative Care Palliative Care/ Comfort Measures: Not Applicable - Core Measures Any of the following diagnoses?: stroke - Stroke Discharge Requirements Statin for LDL = or >70 mg/dl on DC: Yes Anticoag for atrial fib/atrial flutter: Not Applicable Reason for no anticoag for AF/F on DC: Not Indicated Antithrombotic for ischemic stroke: Yes Exam - Constitutional Vitals: Temp Pulse Resp BP Pulse Ox 98.3 F 91 H 18 102/67 98 07/22/19 11:31 07/22/19 11:31 07/22/19 11:31 07/22/19 11:31 07/22/19 11:31 General appearance: Present: no acute distress, well-nourished - EENT Eyes: Present: PERRL, EOM intact - Neck Neck: Present: supple, normal ROM - Respiratory Respiratory effort: normal Respiratory: bilateral: diminished, negative: rales, rhonchi, wheezing - Cardiovascular Rhythm: regular Heart Sounds: Present: S1 & S2 - Extremities Extremities: no ischemia, No edema - Abdominal General gastrointestinal: Present: soft, non-tender, non-distended, normal bowel sounds - Integumentary Integumentary: Present: clear, warm - Musculoskeletal Musculoskeletal: strength equal bilaterally, generalized weakness - Psychiatric Psychiatric: appropriate mood/affect, cooperative - Neurologic Neurologic: other (residual weakness) Plan Activity: advance as tolerated, fall precautions Diet: diabetic Special Instructions: physical therapy, occupational therapy Additional Instructions: Check with the primary care physician to resume diabetic medications. your blood Sugars are in the low range during the hospital stay Follow up with: KWAME TURCIOS MD [Primary Care Provider] - 3-5 Days KRYSTIN MENENDEZ MD [Staff Physician] - 7 Days DARIAN HENDRICKSON MD [Staff Physician] - 7 Days Prescriptions: Nicotine [Habitrol] 14 mg TD QDAY #30 patch Aspirin EC [Halfprin EC] 81 mg PO QDAY #30 tablet AtorvaSTATin [Lipitor] 40 mg PO QHS #30 tablet Famotidine [Pepcid] 20 mg PO BID #60 tablet oxyCODONE /ACETAMINOPHEN [Percocet 5/325] 1 tab PO BID PRN #10 tablet PRN Reason: Pain
--- NOTE | 2019-07-22 13:05 | Progress Note ---
Assessment and Plan Assessment and plan: 64-year-old female with pmh of HTN and Diabetes presents to the emergency department via EMS complaining of Lt facial droop and right sided weakness. Very poor historian. Frequent falls recently. These symptoms are more than 24 hours. Has some slurring of speech. Per daughter who is at bedside, she first noticed the patient was acting strange the day before but the patient refused to go to the ER, the next day the patient became confused, facial droop was noted and the patient almost burnt what she was cooking prompting and ER visit. The patient had complained of shoulder pain for the past 2-3 days and chronic dizziness she unfortunately continues to smoke CT Head: IMPRESSION: 1. Acute, ischemic right middle cerebral infarction. Rt Shoulder Xray: Degenerative changes in Rt Humeral head --Acute Right MCA CVA/cardioembolic CVA Not a TPA candidate due to timing of Event and Presentation Neurology following, neuro workup noted YASSINE did not reveal any shunt or vegetations/endocarditis Long-term Cardiac monitoring to rule out the arrhythmias upon discharge --NSTEMI: Positive troponins/nonspecific Cardiology following ,no plans of further cardiac workup Possible stress test tomorrow to rule out ischemia --Hypokalemia-supplemented, potassium levels normal --THC Use disorder and Tobacco use : Extensive counselling, advised to quit tobacco and marijuana use the patient verbalized understanding --HTN: Moderate Control , continue current antihypertensives and when necessary medications Resume BP control --DM type 2 WITH hyperglycemia Accucheck, AC/HS, Insulin therapy --DJD, right shoulder PT/OT eval and treat --Obesity; hematocrit 36.6 Advised weight reduction,lifestyle modification . DVT/GI Prophy and Mobility protocol Physical therapy and occupational therapy rehabilitation Home with home PT upon discharge Disposition; follow stress test tomorrow Discharge the patient if test is negative and patient is stable History Interval history: Patient seen and examined medical records reviewed. Patient feels slightly better tolerating physical therapy recommended home health Cardiology advised stress test tomorrow to evaluate positive troponins Patient feels better no new complaints Vital signs reviewed Hospitalist Physical - Constitutional Vitals: Temp Pulse Resp BP Pulse Ox 98.3 F 91 H 18 102/67 98 07/22/19 11:31 07/22/19 11:31 07/22/19 11:31 07/22/19 11:31 07/22/19 11:31 General appearance: Present: no acute distress, well-nourished - EENT Eyes: Present: PERRL, EOM intact - Neck Neck: Present: supple, normal ROM - Respiratory Respiratory effort: normal Respiratory: bilateral: diminished, negative: rales, rhonchi, wheezing - Cardiovascular Rhythm: regular Heart Sounds: Present: S1 & S2 - Extremities Extremities: no ischemia, No edema - Abdominal General gastrointestinal: soft, non-tender, non-distended, normal bowel sounds - Integumentary Integumentary: Present: clear, warm - Psychiatric Psychiatric: appropriate mood/affect, cooperative - Neurologic Neurologic: other (acute CVA with residual weakness) Results - Labs CBC & Chem 7: 07/18/19 18:37 07/20/19 04:16 Labs: Laboratory Last Values WBC 10.8 K/mm3 (4.5-11.0) 07/18/19 18:37 RBC 4.67 M/mm3 (3.65-5.03) 07/18/19 18:37 Hgb 14.7 gm/dl (10.1-14.3) H 07/18/19 18:37 Hct 43.5 % (30.3-42.9) H 07/18/19 18:37 MCV 93 fl (79-97) 07/18/19 18:37 MCH 31 pg (28-32) 07/18/19 18:37 MCHC 34 % (30-34) 07/18/19 18:37 RDW 14.5 % (13.2-15.2) 07/18/19 18:37 Plt Count 258 K/mm3 (140-440) 07/18/19 18:37 Lymph % (Auto) 25.3 % (13.4-35.0) 07/18/19 18:37 [place] % (Auto) 10.2 % (0.0-7.3) H 07/18/19 18:37 Eos % (Auto) 0.7 % (0.0-4.3) 07/18/19 18:37 Baso % (Auto) 1.3 % (0.0-1.8) 07/18/19 18:37 Lymph # 2.7 K/mm3 (1.2-5.4) 07/18/19 18:37 [place] # 1.1 K/mm3 (0.0-0.8) H 07/18/19 18:37 Eos # 0.1 K/mm3 (0.0-0.4) 07/18/19 18:37 Baso # 0.1 K/mm3 (0.0-0.1) 07/18/19 18:37 Seg Neutrophils % 62.5 % (40.0-70.0) 07/18/19 18:37 Seg Neutrophils # 6.8 K/mm3 (1.8-7.7) 07/18/19 18:37 PT 12.7 Sec. (12.2-14.9) 07/18/19 18:37 INR 0.98 (0.87-1.13) 07/18/19 18:37 APTT 23.9 Sec. (24.2-36.6) L 07/18/19 18:37 Sodium 141 mmol/L (137-145) 07/20/19 04:16 Potassium 3.7 mmol/L (3.6-5.0) 07/20/19 04:16 Chloride 99.2 mmol/L (98-107) 07/20/19 04:16 Carbon Dioxide 27 mmol/L (22-30) 07/20/19 04:16 19 mmol/L 07/20/19 04:16 BUN 10 mg/dL (7-17) 07/20/19 04:16 0.8 mg/dL (0.7-1.2) 07/20/19 04:16 Estimated GFR > 60 ml/min 07/20/19 04:16 13 % 07/20/19 04:16 Glucose 184 mg/dL (65-100) H 07/20/19 04:16 POC Glucose 196 (70-105) H 07/22/19 11:41 7.8 % (4-6) H 07/18/19 18:37 Calcium 8.7 mg/dL (8.4-10.2) 07/20/19 04:16 0.40 mg/dL (0.1-1.2) 07/18/19 18:37 AST 24 units/L (5-40) 07/18/19 18:37 ALT 20 units/L (7-56) 07/18/19 18:37 98 units/L (35-129) 07/18/19 18:37 286 units/L (30-135) H 07/18/19 18:37 CK-MB (CK-2) 1.7 ng/mL (0.0-4.0) 07/18/19 18:37 CK-MB (CK-2) Rel Index 0.5 (0-4) 07/18/19 18:37 0.318 ng/mL (0.00-0.029) H* 07/18/19 20:40 7.3 g/dL (6.3-8.2) 07/18/19 18:37 3.4 g/dL (3.9-5) L 07/18/19 18:37 0.9 % 07/18/19 18:37 Triglycerides 142 mg/dL (2-149) 07/18/19 18:37 Cholesterol 122 mg/dL (50-199) 07/18/19 18:37 79 mg/dL (50-130) 07/18/19 18:37 29 mg/dL (40-59) L 07/18/19 18:37 4.20 % 07/18/19 18:37 TSH 1.760 mlU/mL (0.270-4.200) 07/18/19 18:37 Yellow (Yellow) 07/19/19 06:31 Slightly-cloudy (Clear) 07/19/19 06:31 6.0 (5.0-7.0) 07/19/19 06:31 Ur Specific [place] 1.018 (1.003-1.030) 07/19/19 06:31 <15 mg/dl mg/dL (Negative) 07/19/19 06:31 Neg mg/dL (Negative) 07/19/19 06:31 Neg mg/dL (Negative) 07/19/19 06:31 Neg (Negative) 07/19/19 06:31 Neg (Negative) 07/19/19 06:31 Neg (Negative) 07/19/19 06:31 < 2.0 mg/dL (<2.0) 07/19/19 06:31 Ur Leukocyte Esterase Neg (Negative) 07/19/19 06:31 3.0 /HPF (0.0-6.0) 07/19/19 06:31 3.0 /HPF (0.0-6.0) 07/19/19 06:31 U Epithel Cells (Auto) 3.0 /HPF (0-13.0) 07/19/19 06:31 Few /HPF 07/19/19 06:31 Presumptive negative 07/19/19 06:31 Presumptive negative 07/19/19 06:31 Ur Barbiturates Screen Presumptive negative 07/19/19 06:31 Ur Phencyclidine Scrn Presumptive negative 07/19/19 06:31 Ur Amphetamines Screen Presumptive negative 07/19/19 06:31 U Benzodiazepines Scrn Presumptive negative 07/19/19 06:31 Presumptive negative 07/19/19 06:31 U Marijuana (THC) Screen Presumptive positive 07/19/19 06:31 Disclamer 07/19/19 06:31 Plasma/Serum Alcohol < 0.01 % (0-0.07) 07/18/19 18:37 Active Medications - Current Medications Current Medications: Generic Name Dose Route Start Last Admin Trade Name Freq PRN Reason Stop Dose Admin Acetaminophen 650 mg 07/18/19 22:48 07/22/19 10:53 Tylenol PO 650 mg Q4H PRN Administration Pain MILD(1-3)/Fever >100.5/BRIDGES Aspirin 81 mg 07/20/19 10:00 07/22/19 09:40 Halfprin Ec PO 81 mg QDAY BAUTISTA Administration Atorvastatin Calcium 40 mg 07/19/19 22:00 07/21/19 21:30 Lipitor PO 40 mg QHS BAUTISTA Administration Dicyclomine HCl 10 mg 07/18/19 22:47 Bentyl PO QID PRN Pain Enoxaparin Sodium 40 mg 07/19/19 22:00 07/21/19 21:30 Lovenox SUB-Q 40 mg QDAY@2200 BAUTISTA Administration Famotidine 20 mg 07/18/19 23:00 07/21/19 21:30 Pepcid PO 20 mg BID BAUTISTA Administration Hydromorphone HCl 0.5 mg 07/18/19 22:49 07/21/19 22:54 Dilaudid IV 0.5 mg Q3H PRN Administration Pain , Severe (7-10) Sodium Chloride 500 mls @ 50 mls/hr 07/21/19 08:00 07/21/19 08:00 Nacl 0.9% 500 Ml IV 50 mls/hr DIRECT BAUTISTA Administration Insulin Human Lispro 0 unit 07/19/19 11:30 07/22/19 09:41 Humalog SUB-Q 2 unit ACHS ABUTISTA Administration Protocol Nicotine 14 mg 07/19/19 10:00 07/22/19 09:40 Habitrol TD 14 mg QDAY BAUTISTA Administration Ondansetron HCl 4 mg 07/18/19 22:48 Zofran IV Q8H PRN Nausea And Vomiting Sodium Chloride 10 ml 07/19/19 10:00 07/21/19 21:31 Sodium Chloride Flush Syringe 10 Ml IV 10 ml BID BAUTISTA Administration Sodium Chloride 10 ml 07/18/19 22:50 07/19/19 22:10 Sodium Chloride Flush Syringe 10 Ml IV 10 ml PRN PRN Administration LINE FLUSH
[2019-07-22] MEDS: SODIUM CHLORIDE FLUSH SYRINGE 10 ML IV SCH ×2 (13:16→22:25)
[2019-07-22] MEDS: PEPCID PO SCH ×2 (13:16→22:25)
[2019-07-22] MEDS: DILAUDID IV PRN ×2 (13:19→20:26)
[2019-07-22] MEDS: LOVENOX SUB-Q SCH (22:25)
[2019-07-23] MEDS: DILAUDID IV PRN (08:04)
[2019-07-23] MEDS: HumaLOG SUB-Q SCH ×3 (08:05→13:11)
--- NOTE | 2019-07-23 08:26 | Progress Note ---
Hospitalist Physical - Constitutional Vitals: Temp Pulse Resp BP Pulse Ox 98.5 F 81 20 143/72 94 07/23/19 05:50 07/23/19 06:00 07/23/19 05:50 07/23/19 05:50 07/23/19 05:50 General appearance: Present: no acute distress, well-nourished, obese Results - Labs CBC & Chem 7: 07/18/19 18:37 07/20/19 04:16 Labs: Laboratory Last Values WBC 10.8 K/mm3 (4.5-11.0) 07/18/19 18:37 RBC 4.67 M/mm3 (3.65-5.03) 07/18/19 18:37 Hgb 14.7 gm/dl (10.1-14.3) H 07/18/19 18:37 Hct 43.5 % (30.3-42.9) H 07/18/19 18:37 MCV 93 fl (79-97) 07/18/19 18:37 MCH 31 pg (28-32) 07/18/19 18:37 MCHC 34 % (30-34) 07/18/19 18:37 RDW 14.5 % (13.2-15.2) 07/18/19 18:37 Plt Count 258 K/mm3 (140-440) 07/18/19 18:37 Lymph % (Auto) 25.3 % (13.4-35.0) 07/18/19 18:37 [place] % (Auto) 10.2 % (0.0-7.3) H 07/18/19 18:37 Eos % (Auto) 0.7 % (0.0-4.3) 07/18/19 18:37 Baso % (Auto) 1.3 % (0.0-1.8) 07/18/19 18:37 Lymph # 2.7 K/mm3 (1.2-5.4) 07/18/19 18:37 [place] # 1.1 K/mm3 (0.0-0.8) H 07/18/19 18:37 Eos # 0.1 K/mm3 (0.0-0.4) 07/18/19 18:37 Baso # 0.1 K/mm3 (0.0-0.1) 07/18/19 18:37 Seg Neutrophils % 62.5 % (40.0-70.0) 07/18/19 18:37 Seg Neutrophils # 6.8 K/mm3 (1.8-7.7) 07/18/19 18:37 PT 12.7 Sec. (12.2-14.9) 07/18/19 18:37 INR 0.98 (0.87-1.13) 07/18/19 18:37 APTT 23.9 Sec. (24.2-36.6) L 07/18/19 18:37 Sodium 141 mmol/L (137-145) 07/20/19 04:16 Potassium 3.7 mmol/L (3.6-5.0) 07/20/19 04:16 Chloride 99.2 mmol/L (98-107) 07/20/19 04:16 Carbon Dioxide 27 mmol/L (22-30) 07/20/19 04:16 19 mmol/L 07/20/19 04:16 BUN 10 mg/dL (7-17) 07/20/19 04:16 0.8 mg/dL (0.7-1.2) 07/20/19 04:16 Estimated GFR > 60 ml/min 07/20/19 04:16 13 % 07/20/19 04:16 Glucose 184 mg/dL (65-100) H 07/20/19 04:16 POC Glucose 181 (70-105) H 07/23/19 08:12 7.8 % (4-6) H 07/18/19 18:37 Calcium 8.7 mg/dL (8.4-10.2) 07/20/19 04:16 0.40 mg/dL (0.1-1.2) 07/18/19 18:37 AST 24 units/L (5-40) 07/18/19 18:37 ALT 20 units/L (7-56) 07/18/19 18:37 98 units/L (35-129) 07/18/19 18:37 286 units/L (30-135) H 07/18/19 18:37 CK-MB (CK-2) 1.7 ng/mL (0.0-4.0) 07/18/19 18:37 CK-MB (CK-2) Rel Index 0.5 (0-4) 07/18/19 18:37 0.318 ng/mL (0.00-0.029) H* 07/18/19 20:40 7.3 g/dL (6.3-8.2) 07/18/19 18:37 3.4 g/dL (3.9-5) L 07/18/19 18:37 0.9 % 07/18/19 18:37 Triglycerides 142 mg/dL (2-149) 07/18/19 18:37 Cholesterol 122 mg/dL (50-199) 07/18/19 18:37 79 mg/dL (50-130) 07/18/19 18:37 29 mg/dL (40-59) L 07/18/19 18:37 4.20 % 07/18/19 18:37 TSH 1.760 mlU/mL (0.270-4.200) 07/18/19 18:37 Yellow (Yellow) 07/19/19 06:31 Slightly-cloudy (Clear) 07/19/19 06:31 6.0 (5.0-7.0) 07/19/19 06:31 Ur Specific [place] 1.018 (1.003-1.030) 07/19/19 06:31 <15 mg/dl mg/dL (Negative) 07/19/19 06:31 Neg mg/dL (Negative) 07/19/19 06:31 Neg mg/dL (Negative) 07/19/19 06:31 Neg (Negative) 07/19/19 06:31 Neg (Negative) 07/19/19 06:31 Neg (Negative) 07/19/19 06:31 < 2.0 mg/dL (<2.0) 07/19/19 06:31 Ur Leukocyte Esterase Neg (Negative) 07/19/19 06:31 3.0 /HPF (0.0-6.0) 07/19/19 06:31 3.0 /HPF (0.0-6.0) 07/19/19 06:31 U Epithel Cells (Auto) 3.0 /HPF (0-13.0) 07/19/19 06:31 Few /HPF 07/19/19 06:31 Presumptive negative 07/19/19 06:31 Presumptive negative 07/19/19 06:31 Ur Barbiturates Screen Presumptive negative 07/19/19 06:31 Ur Phencyclidine Scrn Presumptive negative 07/19/19 06:31 Ur Amphetamines Screen Presumptive negative 07/19/19 06:31 U Benzodiazepines Scrn Presumptive negative 07/19/19 06:31 Presumptive negative 07/19/19 06:31 U Marijuana (THC) Screen Presumptive positive 07/19/19 06:31 Disclamer 07/19/19 06:31 Plasma/Serum Alcohol < 0.01 % (0-0.07) 07/18/19 18:37 Active Medications - Current Medications Current Medications: Generic Name Dose Route Start Last Admin Trade Name Freq PRN Reason Stop Dose Admin Acetaminophen 650 mg 07/18/19 22:48 07/22/19 10:53 Tylenol PO 650 mg Q4H PRN Administration Pain MILD(1-3)/Fever >100.5/BRIDGES Aspirin 81 mg 07/20/19 10:00 07/22/19 09:40 Halfprin Ec PO 81 mg QDAY BAUTISTA Administration Atorvastatin Calcium 40 mg 07/19/19 22:00 07/22/19 22:25 Lipitor PO 40 mg QHS BAUTISTA Administration Dicyclomine HCl 10 mg 07/18/19 22:47 Bentyl PO QID PRN Pain Enoxaparin Sodium 40 mg 07/19/19 22:00 07/22/19 22:25 Lovenox SUB-Q 40 mg QDAY@2200 BAUTISTA Administration Famotidine 20 mg 07/18/19 23:00 07/22/19 22:25 Pepcid PO 20 mg BID BAUTISTA Administration Hydromorphone HCl 0.5 mg 07/18/19 22:49 07/23/19 08:04 Dilaudid IV 0.5 mg Q3H PRN Administration Pain , Severe (7-10) Sodium Chloride 500 mls @ 50 mls/hr 07/21/19 08:00 07/21/19 08:00 Nacl 0.9% 500 Ml IV 50 mls/hr DIRECT BAUTISTA Administration Insulin Human Lispro 0 unit 07/19/19 11:30 07/23/19 08:05 Humalog SUB-Q Not Given ACHS ABUTISTA Protocol Nicotine 14 mg 07/19/19 10:00 07/22/19 09:40 Habitrol TD 14 mg QDAY BAUTISTA Administration Ondansetron HCl 4 mg 09/08/19 22:48 Zofran IV Q8H PRN Nausea And Vomiting Sodium Chloride 10 ml 07/19/19 10:00 07/22/19 22:25 Sodium Chloride Flush Syringe 10 Ml IV 10 ml BID BAUTISTA Administration Sodium Chloride 10 ml 07/18/19 22:50 07/19/19 22:10 Sodium Chloride Flush Syringe 10 Ml IV 10 ml PRN PRN Administration LINE FLUSH
[2019-07-23] MEDS ORDERED: LEXISCAN IV ONE ×2 (08:57→08:59)
[2019-07-23] MEDS: HABITROL TD SCH (11:04)
[2019-07-23] MEDS: HALFPRIN EC PO SCH (11:04)
[2019-07-23] MEDS: PEPCID PO SCH (11:04)
[2019-07-23] MEDS: SODIUM CHLORIDE FLUSH SYRINGE 10 ML IV SCH (11:05)
[2019-07-23 11:36] VITALS: BP 124/78
[2019-07-23] MEDS: TYLENOL PO PRN (13:06)
--- NOTE | 2019-07-23 13:25 | Progress Note ---
Assessment and Plan Acute ischemic CVA Right ICA stenosis by head CT scan Fever Hypertension Diabetes Elevated troponin - non-specific COPD Tobacco abuse Echocardiogram: EF 50-55%, left atrium normal size, bubble study indeterminate. YASSINE -reports a normal LV function. No evidence of vegetation, mass, or PFO. MPI this admission - no ischemia, low risk study Conservative medical management. Subjective Date of service: 07/23/19 Principal diagnosis: Stroke Interval history: Patient has no CV complaints this morning No events on tele Objective Vital Signs Temp Pulse Pulse Resp BP Pulse Ox 07/23/19 11:35 74 124/78 07/23/19 11:03 86 116/74 94 07/23/19 09:33 133/55 07/23/19 09:32 87 133/55 07/23/19 09:31 106 H 129/58 07/23/19 09:30 92 H 113/59 07/23/19 09:29 94 H 144/79 07/23/19 09:28 94 H 124/82 07/23/19 08:57 124/78 07/23/19 06:00 81 07/23/19 05:50 98.5 F 81 20 143/72 94 07/23/19 00:57 97.8 F 91 H 20 138/72 95 07/22/19 22:00 88 07/22/19 21:00 88 18 07/22/19 19:40 98.0 F 88 20 138/76 98 07/22/19 17:34 98.8 F 76 18 167/98 94 - Physical Examination General: No Apparent Distress HEENT: Positive: PERRL Neck: Positive: trachea midline Cardiac: Positive: Reg Rate and Rhythm Lungs: Positive: Normal Exam Neuro: Positive: Grossly Intact Extremities: Absent: edema - Imaging and Cardiology EKG: report reviewed (NSR 100/min)
--- NOTE | 2019-07-24 02:30 | Treadmill Report ---
INDICATION: Abnormal troponin. ORDERING PHYSICIAN: Jacquie Inman MD FINDINGS: There is no scintigraphic evidence of myocardial ischemia. There is evidence of decreased counts noted in the inferior wall on the stress imaging due to overlying attenuation from increased liver uptake. The left ventricle is normal in size. There is normal wall motion. The left ventricular ejection fraction is measured at 71%. CONCLUSION: 1. No scintigraphic evidence of myocardial ischemia. 2. Normal left ventricular size and function. 3. This is a low risk myocardial perfusion scan associated with 1-year cardiovascular mortality risk of less than 1%. JOB# [id number] ALEX/ROGELIO
== END 2019-07-23 18:24 | disposition home health service (06) | DRG 64 ==
LOC: ED 16:58 → 4A 20:09
PROVIDERS: ADMIT Internal Medicine; ATTEND Internal Medicine
DX: I63.9 Cerebral infarction, unspecified (principal); I21.4 Non-ST elevation (NSTEMI) myocardial infarction; I10 Essential (primary) hypertension; E87.6 Hypokalemia; E11.65 Type 2 diabetes mellitus with hyperglycemia; M19.011 Primary osteoarthritis, right shoulder; E66.9 Obesity, unspecified; R29.6 Repeated falls; I65.21 Occlusion and stenosis of right carotid artery; J44.9 Chronic obstructive pulmonary disease, unspecified; R47.81 Slurred speech; F17.210 Nicotine dependence, cigarettes, uncomplicated; R29.810 Facial weakness; Z82.49 Family history of ischemic heart disease and other diseases of the circulatory system; Z88.0 Allergy status to penicillin; Z71.6 Tobacco abuse counseling; Z79.84 Long term (current) use of oral hypoglycemic drugs; Z68.35 Body mass index [BMI] 35.0-35.9, adult; Z79.82 Long term (current) use of aspirin
CPT/HCPCS: 36415; 70450; 70496; 70551; 78452; 80048; 80053; 80061; 80307; 80320; 81001; 82550; 82553; 82962; 83036; 84443; 84484; 85025; 85610; 85730; 87116; 93005; 93010; 93017; 93306; 93312; 93320; 93325; 93880; 99406; G0378; A9270-GY; A9502; G0480; G0515-GN; J1170; J1650; J1815; J2704; J2785; J7040; Q9967

== ENCOUNTER 2021-03-13 16:06 | Inpatient (IN) | payer MEDICAID ==
--- NOTE | 2021-03-13 16:41 | Emergency Department Report ---
ED Neuro Deficit HPI - General Stated Complaint: POSSIBLE STROKE Time Seen by Provider: 03/13/21 16:29 Source: patient, EMS - History of Present Illness Initial Comments: Patient is 65 years old female with history of hypertension, diabetes and previous CVA with complete recovery according to the patient report. Patient brought to the emergency room via EMS from home for evaluation of possible stroke. EMS stated that patient daughter noticed a left facial weakness, left upper and lower extremity weakness for the last 2 days. Patient stated that she is having trouble holding things when she use her left upper extremity. Patient also stated that she is having trouble with her speech. Patient denied any loss of consciousness, headache, nausea or vomiting. No chest pain or shortness of breath. -: days(s) (2) Location: speech, left face, left arm, left leg Presenting Symptoms: Present: Weak/Paralyzed One Side, Facial Droop/Numbness, Unable to Speak Clearly History of same: Yes Place: home Quality: weak Context: sudden onset Associated Symptoms: denies other symptoms - Related Data Home Medications: Home Medications Medication Instructions Recorded Confirmed Last Taken Gabapentin 600 mg PO Q8HR 07/19/19 07/19/19 Unknown Previous Rx's Medication Instructions Recorded Last Taken Type Aspirin EC [Halfprin EC] 81 mg PO QDAY #30 tablet 07/23/19 Unknown Rx AtorvaSTATin [Lipitor] 40 mg PO QHS #30 tablet 07/23/19 Unknown Rx Famotidine [Pepcid] 20 mg PO BID #60 tablet 07/23/19 Unknown Rx Nicotine [Habitrol] 14 mg TD QDAY #30 patch 07/23/19 Unknown Rx oxyCODONE /ACETAMINOPHEN [Percocet 1 tab PO BID PRN #10 tablet 07/23/19 Unknown Rx 5/325] Allergies/Adverse Reactions: Allergies Allergy/AdvReac Type Severity Reaction Status Date / Time Penicillins Allergy Swelling Verified 01/08/16 07:21 ED Review of Systems ROS: Stated complaint: POSSIBLE STROKE Other details as noted in HPI Comment: All other systems reviewed and negative Constitutional: denies: chills, fever Respiratory: denies: cough, shortness of breath, SOB with exertion Cardiovascular: denies: chest pain, palpitations Gastrointestinal: denies: abdominal pain, nausea, vomiting Neurological: weakness. denies: headache, numbness, paresthesias, confusion ED Past Medical Hx - Past Medical History Hx Hypertension: Yes Hx Congestive Heart Failure: Yes Hx Diabetes: Yes Hx Asthma: Yes Hx COPD: No - Social History Smoking Status: Current Every Day Smoker Substance Use Type: Alcohol - Medications Home Medications: Home Medications Medication Instructions Recorded Confirmed Last Taken Type Gabapentin 600 mg PO Q8HR 07/19/19 07/19/19 Unknown History Aspirin EC [Halfprin EC] 81 mg PO QDAY #30 tablet 07/23/19 Unknown Rx AtorvaSTATin [Lipitor] 40 mg PO QHS #30 tablet 07/23/19 Unknown Rx Famotidine [Pepcid] 20 mg PO BID #60 tablet 07/23/19 Unknown Rx Nicotine [Habitrol] 14 mg TD QDAY #30 patch 07/23/19 Unknown Rx oxyCODONE /ACETAMINOPHEN [Percocet 1 tab PO BID PRN #10 tablet 07/23/19 Unknown Rx 5/325] ED Neuro Physical Exam - General General appearance: alert, in no apparent distress Suspected Stroke: Yes - Head Head exam: Present: atraumatic, normocephalic, normal inspection - Eye Eye exam: Present: normal appearance - ENT ENT exam: Present: normal exam, normal orophraynx, mucous membranes moist - Neck Neck exam: Present: normal inspection, full ROM. Absent: tenderness, meningismus - Respiratory Respiratory exam: Present: normal lung sounds bilaterally - Cardiovascular Cardiovascular Exam: Present: regular rate, normal rhythm, normal heart sounds - GI/Abdominal GI/Abdominal exam: Present: soft, normal bowel sounds, other (Patient has a baby diaper applied to the colostomy area stating that she does not have colostomy bag.). Absent: distended, tenderness, guarding, rebound, rigid, organomegaly, mass, bruit, pulsatile mass - Extremities Exam Extremities exam: Present: normal inspection, full ROM, normal capillary refill - Neurological Exam Neurological exam: Present: alert, oriented X3. Absent: CN II-XII intact - NIHSS Assessment Interval: Baseline 1a. Level of Consciousness: alert/keenly responsive 1b. LOC Questions: answers both correctly 1c. LOC Commands: performs tasks correctly 2. Best Gaze: normal 3. Visual: no visual loss 4. Facial Palsy: partial paralysis 5b. Motor Arm Right: no drift 5a. Motor Arm Left: no drift 6a. Motor Leg Left: no drift 6b. Motor Leg Right: no drift 7. Limb Ataxia: absent 8. Sensory: normal 9. Best Language: mild/moderate aphasia 10. Dysarthria: mild/moderate dysarthria 11. Extinction/Inattention: no abnormality Total Score: 4 Stroke Severity: Minor Stroke - Psychiatric Psychiatric exam: Present: normal mood - Skin Skin exam: Present: warm, intact, normal color ED Course Vital Signs 03/13/21 03/13/21 03/13/21 16:10 16:24 16:30 Temperature 98.4 F Pulse Rate 88 91 H Respiratory 19 16 Rate Blood Pressure 156/81 151/87 O2 Sat by Pulse 98 97 98 Oximetry 03/13/21 03/13/21 03/13/21 17:10 17:30 18:00 Temperature Pulse Rate 96 H Respiratory 18 Rate Blood Pressure 151/87 167/86 160/81 O2 Sat by Pulse 96 98 93 Oximetry - Lab Data Result diagrams: 03/13/21 17:14 03/13/21 17:14 Lab Results 03/13/21 03/13/21 03/13/21 Range/Units 17:14 17:14 17:14 WBC 7.7 (4.5-11.0) K/mm3 RBC 4.72 (3.65-5.03) M/mm3 Hgb 15.3 H (10.1-14.3) gm/dl Hct 46.2 H (30.3-42.9) % MCV 98 H (79-97) fl MCH 33 H (28-32) pg MCHC 33 (30-34) % RDW 15.1 (13.2-15.2) % Plt Count 208 (140-440) K/mm3 Lymph % (Auto) 34.5 (13.4-35.0) % [place] % (Auto) 8.7 H (0.0-7.3) % Eos % (Auto) 0.4 (0.0-4.3) % Baso % (Auto) 0.9 (0.0-1.8) % Lymph # (Auto) 2.7 (1.2-5.4) K/mm3 [place] # (Auto) 0.7 (0.0-0.8) K/mm3 Eos # (Auto) 0.0 (0.0-0.4) K/mm3 Baso # (Auto) 0.1 (0.0-0.1) K/mm3 Seg Neutrophils % 55.5 (40.0-70.0) % Seg Neutrophils # 4.3 (1.8-7.7) K/mm3 PT 11.8 L (12.2-14.9) Sec. INR 0.88 (0.87-1.13) APTT 23.2 L (24.2-36.6) Sec. Thrombin Time 18.3 (15.1-19.6) Sec. Sodium 139 (137-145) mmol/L Potassium 4.1 (3.6-5.0) mmol/L Chloride 103.1 (98-107) mmol/L Carbon Dioxide 27 (22-30) mmol/L Anion Gap 13 mmol/L BUN 9 (7-17) mg/dL Creatinine 0.7 (0.6-1.2) mg/dL Estimated GFR > 60 ml/min BUN/Creatinine Ratio 13 % Glucose 318 H (65-100) mg/dL Calcium 8.8 (8.4-10.2) mg/dL Total Bilirubin (0.1-1.2) mg/dL Direct Bilirubin (0-0.2) mg/dL Indirect Bilirubin mg/dL AST (5-40) units/L ALT (7-56) units/L Alkaline Phosphatase (35-129) units/L Total Creatine Kinase 139 H (30-135) units/L CK-MB (CK-2) 1.9 (0.0-4.0) ng/mL CK-MB (CK-2) Rel Index 1.3 (0-4) Troponin T < 0.010 (0.00-0.029) ng/mL Total Protein (6.3-8.2) g/dL Albumin (3.9-5) g/dL Albumin/Globulin Ratio % Urine Color (Yellow) Urine Turbidity (Clear) Urine pH (5.0-7.0) Ur Specific [place] (1.003-1.030) Urine Protein (Negative) mg/dL Urine Glucose (UA) (Negative) mg/dL Urine Ketones (Negative) mg/dL Urine Blood (Negative) Urine Nitrite (Negative) Urine Bilirubin (Negative) Urine Urobilinogen (<2.0) mg/dL Ur Leukocyte Esterase (Negative) Urine WBC (Auto) (0.0-6.0) /HPF Urine RBC (Auto) (0.0-6.0) /HPF U Epithel Cells (Auto) (0-13.0) /HPF Urine Yeast (Budding) /HPF 03/13/21 03/13/21 Range/Units 17:14 18:36 WBC (4.5-11.0) K/mm3 RBC (3.65-5.03) M/mm3 Hgb (10.1-14.3) gm/dl Hct (30.3-42.9) % MCV (79-97) fl MCH (28-32) pg MCHC (30-34) % RDW (13.2-15.2) % Plt Count (140-440) K/mm3 Lymph % (Auto) (13.4-35.0) % [place] % (Auto) (0.0-7.3) % Eos % (Auto) (0.0-4.3) % Baso % (Auto) (0.0-1.8) % Lymph # (Auto) (1.2-5.4) K/mm3 [place] # (Auto) (0.0-0.8) K/mm3 Eos # (Auto) (0.0-0.4) K/mm3 Baso # (Auto) (0.0-0.1) K/mm3 Seg Neutrophils % (40.0-70.0) % Seg Neutrophils # (1.8-7.7) K/mm3 PT (12.2-14.9) Sec. INR (0.87-1.13) APTT (24.2-36.6) Sec. Thrombin Time (15.1-19.6) Sec. Sodium (137-145) mmol/L Potassium (3.6-5.0) mmol/L Chloride (98-107) mmol/L Carbon Dioxide (22-30) mmol/L Anion Gap mmol/L BUN (7-17) mg/dL Creatinine (0.6-1.2) mg/dL Estimated GFR ml/min BUN/Creatinine Ratio % Glucose (65-100) mg/dL Calcium (8.4-10.2) mg/dL Total Bilirubin 0.30 (0.1-1.2) mg/dL Direct Bilirubin < 0.2 (0-0.2) mg/dL Indirect Bilirubin 0.1 mg/dL AST 27 (5-40) units/L ALT 25 (7-56) units/L Alkaline Phosphatase 146 H (35-129) units/L Total Creatine Kinase (30-135) units/L CK-MB (CK-2) (0.0-4.0) ng/mL CK-MB (CK-2) Rel Index (0-4) Troponin T (0.00-0.029) ng/mL Total Protein 6.6 (6.3-8.2) g/dL Albumin 3.8 L (3.9-5) g/dL Albumin/Globulin Ratio 1.4 % Urine Color Yellow (Yellow) Urine Turbidity Clear (Clear) Urine pH 6.0 (5.0-7.0) Ur Specific [place] 1.027 (1.003-1.030) Urine Protein <15 mg/dl (Negative) mg/dL Urine Glucose (UA) >=500 (Negative) mg/dL Urine Ketones Neg (Negative) mg/dL Urine Blood Neg (Negative) Urine Nitrite Neg (Negative) Urine Bilirubin Neg (Negative) Urine Urobilinogen < 2.0 (<2.0) mg/dL Ur Leukocyte Esterase Neg (Negative) Urine WBC (Auto) < 1.0 (0.0-6.0) /HPF Urine RBC (Auto) 1.0 (0.0-6.0) /HPF U Epithel Cells (Auto) 6.0 (0-13.0) /HPF Urine Yeast (Budding) Few /HPF - EKG Data -: EKG Interpreted by Dc EKG shows normal: sinus rhythm Rate: normal Interpretation: no acute changes - Radiology Data Radiology results: report reviewed - Medical Decision Making Patient is 65 years old female with history of hypertension, diabetes and previous CVA with complete recovery according to the patient report. Patient brought to the emergency room via EMS from home for evaluation of possible stroke. EMS stated that patient daughter noticed a left facial weakness, left upper and lower extremity weakness for the last 2 days. Patient stated that she is having trouble holding things when she use her left upper extremity. Patient also stated that she is having trouble with her speech. Patient denied any loss of consciousness, headache, nausea or vomiting. No chest pain or shortness of breath. Stroke scale is 4. CT brain is negative for acute finding. Labs reviewed and is unremarkable except for hyperglycemia for which patient received 5 units of regular insulin. I discussed the patient with Dr. Camilo, he agreed to admit the patient to the hospital for stroke work-up and further management. Critical Care Time: Yes Critical care time in (mins) excluding proc time.: 30 Critical care attestation.: If time is entered above; I have spent that time in minutes in the direct care of this critically ill patient, excluding procedure time. ED Disposition Clinical Impression: Acute CVA (cerebrovascular accident), Acute hyperglycemia Disposition: DC-09 OP ADMIT IP TO THIS HOSP Is pt being admited?: Yes Condition: Stable
[2021-03-13 17:32] LABS: Basophils # (Auto) 0.1 K/mm3 (0.0-0.1); Basophils % (Auto) 0.9 % (0.0-1.8); Eosinophils % (Auto) 0.4 % (0.0-4.3); Hematocrit 46.2 % (30.3-42.9); Hemoglobin 15.3 gm/dl (10.1-14.3); Lymphocytes # (Auto) 2.7 K/mm3 (1.2-5.4); Lymphocytes % (Auto) 34.5 % (13.4-35.0); Mean Corpuscular HGB Conc 33 % (30-34); Mean Corpuscular Volume 98 fl (79-97); Monocytes # (Auto) 0.7 K/mm3 (0.0-0.8); Monocytes % (Auto) 8.7 % (0.0-7.3); Platelet Count 208 K/mm3 (140-440); Red Blood Count 4.72 M/mm3 (3.65-5.03); Red Cell Distribution Width 15.1 % (13.2-15.2)
--- NOTE | 2021-03-13 17:42 | Cat Scan Report ---
CT head/brain wo con INDICATION: Stroke symptoms. TECHNIQUE: Routine CT head. All CT scans at this location are performed using CT dose reduction for A MINI by means of automated exposure control. COMPARISON: 07/19/2019. FINDINGS: Intracranial: Large area of right frontal and small area of left parietal encephalomalacia from remot e infarctions. No intracranial hemorrhage. No extra axial collection. No hydrocephalus. No herniation . Sinuses: Paranasal sinuses and mastoid air cells are essentially clear. Orbits: Globes are intact. Calvarium: No acute fracture. IMPRESSION: 1. No acute intracranial abnormality. Signer Name: Rudi Del Toro MD Signed: 03/13/2021 5:37 PM Workstation Name: [id number]
--- NOTE | 2021-03-13 17:43 | XRay Report ---
CHEST 1 VIEW 03/13/2021 4:31 PM INDICATION / CLINICAL INFORMATION: stroke. COMPARISON: 01/08/2016 FINDINGS: SUPPORT DEVICES: None. HEART / MEDIASTINUM: Stable. LUNGS / PLEURA: No significant pulmonary or pleural abnormality. No pneumothorax. ADDITIONAL FINDINGS: No significant additional findings. IMPRESSION: 1. No acute findings. Signer Name: Alfonso Koroma MD Signed: 03/13/2021 5:39 PM Workstation Name: [id number]
[2021-03-13 17:48] LABS: INR 0.88 (0.87-1.13); Partial Thromboplastin Time 23.2 Sec. (24.2-36.6)
[2021-03-13 17:49] LABS: Thrombin Time 18.3 Sec. (15.1-19.6)
[2021-03-13 17:52] LABS: Creatine Kinase MB 1.9 ng/mL (0.0-4.0)
[2021-03-13 17:54] LABS: Blood Urea Nitrogen 9 mg/dL (7-17); Calcium 8.8 mg/dL (8.4-10.2); Hemolysis Index 23
[2021-03-13 17:55] LABS: Alanine Aminotransferase 25 units/L (7-56); Albumin 3.8 g/dL (3.9-5)
[2021-03-13 17:57] LABS: BUN/Creatinine Ratio 13; Bilirubin,Direct < 0.2 mg/dL (0-0.2)
[2021-03-13] MEDS ORDERED: INSULIN REGULAR, HUMAN 100 UNITS/1 ML IV ONE (18:22)
[2021-03-13 19:02] LABS: Bilirubin,Urine NEG (Negative); Blood,Urine NEG (Negative); Color,Urine Yellow (Yellow); Protein,Urine <15 mg/dL mg/dL (Negative); Urobilinogen,Urine < 2.0 mg/dL (<2.0); WBC,Urine < 1.0 /HPF (0.0-6.0)
[2021-03-13] MEDS ORDERED: oxyCODONE /ACETAMINOPHEN 5-325MG TAB PO PRN (22:38)
[2021-03-13] MEDS: HYDROmorphone 1 MG/1 ML INJ IV PRN (23:17)
[2021-03-14] MEDS ORDERED: ONDANSETRON 4 MG/2 ML INJ IV PRN (00:43)
[2021-03-14] MEDS ORDERED: ACETAMINOPHEN 325 MG TAB PO PRN (00:43)
[2021-03-14] MEDS ORDERED: SODIUM CHLORIDE 0.9% 1000 ML 1,000 ML IV SCH (00:45)
[2021-03-14] MEDS ORDERED: MORPHINE 2 MG/1 ML INJ IV PRN (00:47)
[2021-03-14] MEDS ORDERED: oxyCODONE /ACETAMINOPHEN 5-325MG TAB PO PRN (00:47)
--- NOTE | 2021-03-14 00:58 | History and Physical Report ---
History of Present Illness Date of examination: 03/13/21 Date of admission: 03/13/21 19:16 Chief complaint: Left-sided weakness for 2 days History of present illness: 65-year-old -[place] female with history of hypertension type 2 diabetes and previous CVA with right hemiparesis which she has completely recovered comes in for left-sided weakness for the last 2 days. Patient has left facial weakness and left upper and left lower extremity weakness for the last 2 days. Patient able to move left upper and left lower extremity to some extent but not to the normal level. Patient also has facial droop with her left side facial paralysis. Slight dysarthria present. Patient outside the range of TPA administration. No seizures. No ataxia. Patient states he can walk with the help of walker and some assistance. Telemetry neurology was not consulted because of obvious acute CVA. Patient being admitted for CVA work-up when in in-house neurology consultation and rehab/physical therapy/Occupational Therapy. No exposure to coronavirus. - Past Medical History --Hypertension: Yes --Congestive Heart Failure: Yes --Diabetes: Yes --Asthma: Yes Surgical history N/a - Social History Smoking Status: Current Every Day Smoker Substance Use Type: Alcohol Family history Htn Review of Systems ROS: Stated complaint: POSSIBLE STROKE Other details as noted in HPI Comment: All other systems reviewed and negative Constitutional: denies: chills, fever Respiratory: denies: cough, shortness of breath, SOB with exertion Cardiovascular: denies: chest pain, palpitations Gastrointestinal: denies: abdominal pain, nausea, vomiting Neurological: weakness. denies: headache, numbness, paresthesias, confusion Medications and Allergies Allergies Allergy/AdvReac Type Severity Reaction Status Date / Time Penicillins Allergy Swelling Verified 01/08/16 07:21 Home Medications Medication Instructions Recorded Confirmed Last Taken Type Gabapentin 600 mg PO Q8HR 07/19/19 07/19/19 Unknown History Aspirin EC [Halfprin EC] 81 mg PO QDAY #30 tablet 07/23/19 Unknown Rx AtorvaSTATin [Lipitor] 40 mg PO QHS #30 tablet 07/23/19 Unknown Rx Famotidine [Pepcid] 20 mg PO BID #60 tablet 07/23/19 Unknown Rx Nicotine [Habitrol] 14 mg TD QDAY #30 patch 07/23/19 Unknown Rx oxyCODONE /ACETAMINOPHEN [Percocet 1 tab PO BID PRN #10 tablet 07/23/19 Unknown Rx 5/325] Active Meds: Active Medications Hydromorphone HCl (Hydromorphone 1 Mg/1 Ml Inj) 0.5 mg IV Q4H PRN PRN Reason: PAIN/ NPO (7-10) Last Admin: 03/13/21 23:17 Dose: 0.5 mg Documented by: Oxycodone/Acetaminophen (Oxycodone /Acetaminophen 5-325mg Tab) 1 tab PO Q6H PRN PRN Reason: Pain, Moderate (4-6) Exam - Constitutional Vitals: Temp Pulse Resp BP Pulse Ox 98.1 F 86 20 162/86 97 03/13/21 21:13 03/13/21 21:13 03/13/21 21:13 03/13/21 21:13 03/13/21 22:00 General appearance: Present: no acute distress, well-nourished - EENT Eyes: Present: PERRL ENT: hearing intact, clear oral mucosa - Neck Neck: Present: supple, normal ROM - Respiratory Respiratory effort: normal Respiratory: bilateral: CTA - Cardiovascular Heart rate: 78 Rhythm: regular Heart Sounds: Present: S1 & S2. Absent: rub, click - Extremities Extremities: no ischemia, pulses symmetrical, No edema Peripheral Pulses: within normal limits - Abdominal General gastrointestinal: Present: soft, non-tender, non-distended, normal bowel sounds Female genitourinary: Present: normal - Rectal Rectal Exam: deferred - Integumentary Integumentary: Present: clear, warm, dry - Musculoskeletal Musculoskeletal: left sided weakness (3/5 power on the left upper extremity and left lower extremity and left facial palsy) - Psychiatric Psychiatric: appropriate mood/affect, intact judgment & insight - Neurologic Neurologic: focal deficits (Left facial paralysis and left upper extremity and left lower extremity weakness 3/5 power), moves all extremities, other (Patient can walk with the help of walker and assistance --as per patient) - Allied Health Allied health notes reviewed: nursing, case management HEART Score - HEART Score Troponin: Troponin T < 0.010 ng/mL (0.00-0.029) 03/13/21 17:14 Results - Labs CBC & Chem 7: 03/13/21 17:14 03/13/21 17:14 Labs: Laboratory Last Values WBC 7.7 K/mm3 (4.5-11.0) 03/13/21 17:14 RBC 4.72 M/mm3 (3.65-5.03) 03/13/21 17:14 Hgb 15.3 gm/dl (10.1-14.3) H 03/13/21 17:14 Hct 46.2 % (30.3-42.9) H 03/13/21 17:14 MCV 98 fl (79-97) H 03/13/21 17:14 MCH 33 pg (28-32) H 03/13/21 17:14 MCHC 33 % (30-34) 03/13/21 17:14 RDW 15.1 % (13.2-15.2) 03/13/21 17:14 Plt Count 208 K/mm3 (140-440) 03/13/21 17:14 Lymph % (Auto) 34.5 % (13.4-35.0) 03/13/21 17:14 [place] % (Auto) 8.7 % (0.0-7.3) H 03/13/21 17:14 Eos % (Auto) 0.4 % (0.0-4.3) 03/13/21 17:14 Baso % (Auto) 0.9 % (0.0-1.8) 03/13/21 17:14 Lymph # (Auto) 2.7 K/mm3 (1.2-5.4) 03/13/21 17:14 [place] # (Auto) 0.7 K/mm3 (0.0-0.8) 03/13/21 17:14 Eos # (Auto) 0.0 K/mm3 (0.0-0.4) 03/13/21 17:14 Baso # (Auto) 0.1 K/mm3 (0.0-0.1) 03/13/21 17:14 Seg Neutrophils % 55.5 % (40.0-70.0) 03/13/21 17:14 Seg Neutrophils # 4.3 K/mm3 (1.8-7.7) 03/13/21 17:14 PT 11.8 Sec. (12.2-14.9) L 03/13/21 17:14 INR 0.88 (0.87-1.13) 03/13/21 17:14 APTT 23.2 Sec. (24.2-36.6) L 03/13/21 17:14 Thrombin Time 18.3 Sec. (15.1-19.6) 03/13/21 17:14 Sodium 139 mmol/L (137-145) 03/13/21 17:14 Potassium 4.1 mmol/L (3.6-5.0) 03/13/21 17:14 Chloride 103.1 mmol/L (98-107) 03/13/21 17:14 Carbon Dioxide 27 mmol/L (22-30) 03/13/21 17:14 Anion Gap 13 mmol/L 03/13/21 17:14 BUN 9 mg/dL (7-17) 03/13/21 17:14 Creatinine 0.7 mg/dL (0.6-1.2) 03/13/21 17:14 Estimated GFR > 60 ml/min 03/13/21 17:14 BUN/Creatinine Ratio 13 % 03/13/21 17:14 Glucose 318 mg/dL (65-100) H 03/13/21 17:14 POC Glucose 149 mg/dL (70-105) H 03/13/21 19:46 Calcium 8.8 mg/dL (8.4-10.2) 03/13/21 17:14 Total Bilirubin 0.30 mg/dL (0.1-1.2) 03/13/21 17:14 Direct Bilirubin < 0.2 mg/dL (0-0.2) 03/13/21 17:14 Indirect Bilirubin 0.1 mg/dL 03/13/21 17:14 AST 27 units/L (5-40) 03/13/21 17:14 ALT 25 units/L (7-56) 03/13/21 17:14 Alkaline Phosphatase 146 units/L (35-129) H 03/13/21 17:14 Total Creatine Kinase 139 units/L (30-135) H 03/13/21 17:14 CK-MB (CK-2) 1.9 ng/mL (0.0-4.0) 03/13/21 17:14 CK-MB (CK-2) Rel Index 1.3 (0-4) 03/13/21 17:14 Troponin T < 0.010 ng/mL (0.00-0.029) 03/13/21 17:14 Total Protein 6.6 g/dL (6.3-8.2) 03/13/21 17:14 Albumin 3.8 g/dL (3.9-5) L 03/13/21 17:14 Albumin/Globulin Ratio 1.4 % 03/13/21 17:14 Urine Color Yellow (Yellow) 03/13/21 18:36 Urine Turbidity Clear (Clear) 03/13/21 18:36 Urine pH 6.0 (5.0-7.0) 03/13/21 18:36 Ur Specific [place] 1.027 (1.003-1.030) 03/13/21 18:36 Urine Protein <15 mg/dl mg/dL (Negative) 03/13/21 18:36 Urine Glucose (UA) >=500 mg/dL (Negative) 03/13/21 18:36 Urine Ketones Neg mg/dL (Negative) 03/13/21 18:36 Urine Blood Neg (Negative) 03/13/21 18:36 Urine Nitrite Neg (Negative) 03/13/21 18:36 Urine Bilirubin Neg (Negative) 03/13/21 18:36 Urine Urobilinogen < 2.0 mg/dL (<2.0) 03/13/21 18:36 Ur Leukocyte Esterase Neg (Negative) 03/13/21 18:36 Urine WBC (Auto) < 1.0 /HPF (0.0-6.0) 03/13/21 18:36 Urine RBC (Auto) 1.0 /HPF (0.0-6.0) 03/13/21 18:36 U Epithel Cells (Auto) 6.0 /HPF (0-13.0) 03/13/21 18:36 Urine Yeast (Budding) Few /HPF 03/13/21 18:36 Short CBC 03/13/21 Range/Units 17:14 WBC 7.7 (4.5-11.0) K/mm3 Hgb 15.3 H (10.1-14.3) gm/dl Hct 46.2 H (30.3-42.9) % Plt Count 208 (140-440) K/mm3 BMP 03/13/21 17:14 Sodium 139 Potassium 4.1 Chloride 103.1 Carbon Dioxide 27 BUN 9 Creatinine 0.7 Glucose 318 H Calcium 8.8 Cardiac Enzymes 03/13/21 Range/Units 17:14 Total Creatine Kinase 139 H (30-135) units/L CK-MB (CK-2) 1.9 (0.0-4.0) ng/mL Troponin T < 0.010 (0.00-0.029) ng/mL Liver Function 03/13/21 Range/Units 17:14 Total Bilirubin 0.30 (0.1-1.2) mg/dL Direct Bilirubin < 0.2 (0-0.2) mg/dL AST 27 (5-40) units/L ALT 25 (7-56) units/L Alkaline Phosphatase 146 H (35-129) units/L Albumin 3.8 L (3.9-5) g/dL Urine 03/13/21 Range/Units 18:36 Urine Color Yellow (Yellow) Urine pH 6.0 (5.0-7.0) Ur Specific [place] 1.027 (1.003-1.030) Urine Protein <15 mg/dl (Negative) mg/dL Urine Glucose (UA) >=500 (Negative) mg/dL - Imaging and Cardiology EKG: report reviewed (Sinus rhythm no acute ST-T wave changes) CT Scan - head: report reviewed (No acute findings) Enriquez/IV: Voiding Method Toilet Assessment and Plan Advance Directives: Yes (Full code) VTE prophylaxis?: Chemical Plan of care discussed with patient/family: Yes - Patient Problems (1) Acute CVA (cerebrovascular accident) Current Visit: Yes Status: Acute Plan to address problem: Acute CVA protocol Neurology consult requested MRI carotid duplex scan and echocardiogram requested Patient initiated on aspirin and Plavix PT and OT (2) Hypertension Current Visit: No Status: Chronic Qualifiers: Hypertension type: essential hypertension Qualified Code(s): I10 - Essential (primary) hypertension Plan to address problem: Patient initiated on antihypertensives Adjust medications as necessary (3) T2DM (type 2 diabetes mellitus) Current Visit: No Status: Chronic Qualifiers: Diabetes mellitus senior living insulin use: without exterminator termite use Plan to address problem: Patient initiated on NovoLog 70/30 twice a day and also Accu-Cheks AC at bedtime and coverage Check hemoglobin A1c Patient to be discharged on an oral hypoglycemics versus insulin--defer to primary team (4) Nicotine dependence Current Visit: No Status: Chronic Qualifiers: Nicotine product type: cigarettes Plan to address problem: Patient counseled about smoking Patient initiated on NicoDerm patch (5) Hyperlipidemia Current Visit: Yes Status: Chronic Qualifiers: Hyperlipidemia type: mixed hyperlipidemia Qualified Code(s): E78.2 - Mixed hyperlipidemia Plan to address problem: On statins (6) Malnutrition Current Visit: Yes Status: Chronic Qualifiers: Protein-calorie malnutrition severity: mild Plan to address problem: Mild-needs diabetes ( (7) DVT prophylaxis Current Visit: No Status: Acute Plan to address problem: On heparin and GI prophylaxis
[2021-03-14] MEDS: GABAPENTIN 300 MG CAP PO SCH ×4 (01:44→21:14)
--- NOTE | 2021-03-14 08:50 | Progress Note ---
Assessment and Plan Assessment and plan: #Acute CVA Has a history of CVA-1 year ago. Not on any antiplatelets after last CVA Patient started on aspirin and Plavix Statins CTA head and neck pending MRI brain pending Neurology consulted PT/OT Speech therapy evaluation Maintain n.p.o. Permissive hypertension for now #Hypertension Permissive hypertension continue neurology evaluation #Type II DM Continue 70/30 insulin Monitor blood glucose Hemoglobin A1c pending #Nicotine dependence Smoking cessation counseling rendered #Hyperlipidemia Statins #DVT prophylaxis-Lovenox #Disposition-likely rehab. Pending PT evaluation History Interval history: 65-year-old -[place] female with history of hypertension type 2 diabetes and previous CVA with right hemiparesis which she has completely recovered comes in for left-sided weakness for the last 2 days. Patient has left facial weakness and left upper and left lower extremity weakness for the last 2 days. Patient able to move left upper and left lower extremity to some extent but not to the normal level. Patient also has facial droop with her left side facial paralysis. Slight dysarthria present. Patient outside the range of TPA adm inistration. No seizures. No ataxia. Patient states he can walk with the help of walker and some assistance. Telemetry neurology was not consulted because of obvious acute CVA. Patient being admitted for CVA work-up when in in-house neurology consultation and rehab/physical therapy/Occupational Therapy. No exposure to coronavirus. Hospital course 03/14. Patient seen and examined this AM at bedside. She has right facial droop, dysarthria and LLE and LLE weakness. MRI brain and CTA head and neck pending. She is aspirin and plavix. Neurology has consulted. She mentions she was not on antiplatelets since last CVA 1 year ago. Hospitalist Physical - Physical exam Narrative exam: VITAL SIGNS: Reviewed. GENERAL: Awake HEAD: No signs of head trauma. EYES: Pupils are equal. Extraocular motions intact. MOUTH: Oropharynx is normal. NECK: No adenopathy, no JVD. CHEST: Chest with diminished breath sounds bilaterally. No wheezes, rales, or rhonchi. CARDIAC: normal S1 and S2, without murmurs, gallops, or rubs. ABDOMEN: Soft, non tender and non distended. No rebound or guarding, and no masses palpated. Bowel Sounds normal. MUSCULOSKELETAL: No edema NEUROLOGIC EXAM: Alert and oriented x3. Facial droop+. LLE and LUE 4/5. SKIN: No obvious lesions - Constitutional Vitals: Temp Pulse Resp BP Pulse Ox 97.6 F 88 20 149/70 96 03/14/21 04:06 03/14/21 04:06 03/14/21 04:06 03/14/21 04:06 03/14/21 04:06 HEART Score - HEART Score Troponin: Troponin T < 0.010 ng/mL (0.00-0.029) 03/13/21 17:14 Results - Labs CBC & Chem 7: 03/13/21 17:14 03/13/21 17:14 Labs: Laboratory Last Values WBC 7.7 K/mm3 (4.5-11.0) 03/13/21 17:14 RBC 4.72 M/mm3 (3.65-5.03) 03/13/21 17:14 Hgb 15.3 gm/dl (10.1-14.3) H 03/13/21 17:14 Hct 46.2 % (30.3-42.9) H 03/13/21 17:14 MCV 98 fl (79-97) H 03/13/21 17:14 MCH 33 pg (28-32) H 03/13/21 17:14 MCHC 33 % (30-34) 03/13/21 17:14 RDW 15.1 % (13.2-15.2) 03/13/21 17:14 Plt Count 208 K/mm3 (140-440) 03/13/21 17:14 Lymph % (Auto) 34.5 % (13.4-35.0) 03/13/21 17:14 [place] % (Auto) 8.7 % (0.0-7.3) H 03/13/21 17:14 Eos % (Auto) 0.4 % (0.0-4.3) 03/13/21 17:14 Baso % (Auto) 0.9 % (0.0-1.8) 03/13/21 17:14 Lymph # (Auto) 2.7 K/mm3 (1.2-5.4) 03/13/21 17:14 [place] # (Auto) 0.7 K/mm3 (0.0-0.8) 03/13/21 17:14 Eos # (Auto) 0.0 K/mm3 (0.0-0.4) 03/13/21 17:14 Baso # (Auto) 0.1 K/mm3 (0.0-0.1) 03/13/21 17:14 Seg Neutrophils % 55.5 % (40.0-70.0) 03/13/21 17:14 Seg Neutrophils # 4.3 K/mm3 (1.8-7.7) 03/13/21 17:14 PT 11.8 Sec. (12.2-14.9) L 03/13/21 17:14 INR 0.88 (0.87-1.13) 03/13/21 17:14 APTT 23.2 Sec. (24.2-36.6) L 03/13/21 17:14 Thrombin Time 18.3 Sec. (15.1-19.6) 03/13/21 17:14 Sodium 139 mmol/L (137-145) 03/13/21 17:14 Potassium 4.1 mmol/L (3.6-5.0) 03/13/21 17:14 Chloride 103.1 mmol/L (98-107) 03/13/21 17:14 Carbon Dioxide 27 mmol/L (22-30) 03/13/21 17:14 Anion Gap 13 mmol/L 03/13/21 17:14 BUN 9 mg/dL (7-17) 03/13/21 17:14 Creatinine 0.7 mg/dL (0.6-1.2) 03/13/21 17:14 Estimated GFR > 60 ml/min 03/13/21 17:14 BUN/Creatinine Ratio 13 % 03/13/21 17:14 Glucose 318 mg/dL (65-100) H 03/13/21 17:14 POC Glucose 149 mg/dL (70-105) H 03/13/21 19:46 Calcium 8.8 mg/dL (8.4-10.2) 03/13/21 17:14 Total Bilirubin 0.30 mg/dL (0.1-1.2) 03/13/21 17:14 Direct Bilirubin < 0.2 mg/dL (0-0.2) 03/13/21 17:14 Indirect Bilirubin 0.1 mg/dL 03/13/21 17:14 AST 27 units/L (5-40) 03/13/21 17:14 ALT 25 units/L (7-56) 03/13/21 17:14 Alkaline Phosphatase 146 units/L (35-129) H 03/13/21 17:14 Total Creatine Kinase 139 units/L (30-135) H 03/13/21 17:14 CK-MB (CK-2) 1.9 ng/mL (0.0-4.0) 03/13/21 17:14 CK-MB (CK-2) Rel Index 1.3 (0-4) 03/13/21 17:14 Troponin T < 0.010 ng/mL (0.00-0.029) 03/13/21 17:14 Total Protein 6.6 g/dL (6.3-8.2) 03/13/21 17:14 Albumin 3.8 g/dL (3.9-5) L 03/13/21 17:14 Albumin/Globulin Ratio 1.4 % 03/13/21 17:14 Urine Color Yellow (Yellow) 03/13/21 18:36 Urine Turbidity Clear (Clear) 03/13/21 18:36 Urine pH 6.0 (5.0-7.0) 03/13/21 18:36 Ur Specific [place] 1.027 (1.003-1.030) 03/13/21 18:36 Urine Protein <15 mg/dl mg/dL (Negative) 03/13/21 18:36 Urine Glucose (UA) >=500 mg/dL (Negative) 03/13/21 18:36 Urine Ketones Neg mg/dL (Negative) 03/13/21 18:36 Urine Blood Neg (Negative) 03/13/21 18:36 Urine Nitrite Neg (Negative) 03/13/21 18:36 Urine Bilirubin Neg (Negative) 03/13/21 18:36 Urine Urobilinogen < 2.0 mg/dL (<2.0) 03/13/21 18:36 Ur Leukocyte Esterase Neg (Negative) 03/13/21 18:36 Urine WBC (Auto) < 1.0 /HPF (0.0-6.0) 03/13/21 18:36 Urine RBC (Auto) 1.0 /HPF (0.0-6.0) 03/13/21 18:36 U Epithel Cells (Auto) 6.0 /HPF (0-13.0) 03/13/21 18:36 Urine Yeast (Budding) Few /HPF 03/13/21 18:36 Enriquez/IV: Voiding Method Toilet Active Medications - Current Medications Current Medications: Generic Name Dose Route Start Last Admin Trade Name Freq PRN Reason Stop Dose Admin Acetaminophen 650 mg 03/14/21 00:43 Acetaminophen 325 Mg Tab PO Q4H PRN Pain MILD(1-3)/Fever >100.5/BRIDGES Aspirin 325 mg 03/14/21 10:00 Aspirin 325 Mg Tab PO QDAY [facility] Atorvastatin Calcium 40 mg 03/14/21 22:00 Atorvastatin 40 Mg Tab PO QHS [facility] Clopidogrel Bisulfate 75 mg 03/14/21 10:00 Clopidogrel 75 Mg Tab PO QDAY [facility] Famotidine 20 mg 03/14/21 10:00 Famotidine 20 Mg Tab PO BID [facility] Gabapentin 600 mg 03/14/21 01:00 03/14/21 05:55 Gabapentin 300 Mg Cap PO Not Given Q8HR [facility] Heparin Sodium (Porcine) 5,000 unit 03/14/21 10:00 Heparin 5,000 Unit/1 Ml Vial SUB-Q Q12HR [facility] Hydromorphone HCl 0.5 mg 03/13/21 22:36 03/13/21 23:17 Hydromorphone 1 Mg/1 Ml Inj IV 0.5 mg Q4H PRN Administration PAIN/ NPO (7-10) Sodium Chloride 1,000 mls @ 75 mls/hr 03/14/21 00:45 03/14/21 05:55 Nacl 0.9% 1000 Ml IV 03/14/21 23:59 75 mls/hr DIRECT BAUTISTA Administration Insulin Human Isoph/Insulin Regular 30 unit 03/14/21 08:00 Insulin Nph/Regular 70/30 Inj SUB-Q BIDDIAB [facility] Insulin Human Lispro 0 unit 03/14/21 07:30 Insulin Lispro 100 Unit/Ml SUB-Q ACHS [facility] Protocol Morphine Sulfate 2 mg 03/14/21 00:47 Morphine 2 Mg/1 Ml Inj IV Q4H PRN Pain, Moderate (4-6) Nicotine 14 mg 03/14/21 10:00 Nicotine 14 Mg/24 Hr Patch TD QDAY [facility] Ondansetron HCl 4 mg 03/14/21 00:43 Ondansetron 4 Mg/2 Ml Inj IV Q8H PRN Nausea And Vomiting Oxycodone/Acetaminophen 1 tab 03/13/21 22:38 Oxycodone /Acetaminophen 5-325mg Tab PO Q6H PRN Pain, Moderate (4-6) Sodium Chloride 10 ml 03/14/21 10:00 Sodium Chloride 0.9% 10 Ml Flush Syringe IV BID [facility] Sodium Chloride 10 ml 03/14/21 00:50 Sodium Chloride 0.9% 10 Ml Flush Syringe IV PRN PRN LINE FLUSH
[2021-03-14] MEDS: INSULIN LISPRO 100 UNIT/ML SUB-Q SCH ×4 (09:03→22:31)
--- NOTE | 2021-03-14 09:27 | Consultation ---
History of Present Illness Consult date: 03/14/21 Reason for Consult: Acute Stroke Chief complaint: PER EMR - Left-sided weakness History of present illness: PER EMR - 65 yo female with hypertension, diabetes, ischemic stroke w/ no residual deficit who presents with a LKNormal 2 days ago when her daughter noticed the left facial droop and the patient noticed left arm weakness (difficulty with holding items). Past History Past Medical History: diabetes, hypertension, stroke Medications and Allergies Allergies Allergy/AdvReac Type Severity Reaction Status Date / Time Penicillins Allergy Swelling Verified 01/08/16 07:21 Home Medications Medication Instructions Recorded Confirmed Last Taken Type Gabapentin 600 mg PO Q8HR 07/19/19 07/19/19 Unknown History Aspirin EC [Halfprin EC] 81 mg PO QDAY #30 tablet 07/23/19 Unknown Rx AtorvaSTATin [Lipitor] 40 mg PO QHS #30 tablet 07/23/19 Unknown Rx Famotidine [Pepcid] 20 mg PO BID #60 tablet 07/23/19 Unknown Rx Nicotine [Habitrol] 14 mg TD QDAY #30 patch 07/23/19 Unknown Rx oxyCODONE /ACETAMINOPHEN [Percocet 1 tab PO BID PRN #10 tablet 07/23/19 Unknown Rx 5/325] Active Meds: Active Medications Acetaminophen (Acetaminophen 325 Mg Tab) 650 mg PO Q4H PRN PRN Reason: Pain MILD(1-3)/Fever >100.5/BRIDGES Aspirin (Aspirin 325 Mg Tab) 325 mg PO QDAY [facility] Atorvastatin Calcium (Atorvastatin 40 Mg Tab) 40 mg PO QHS [facility] Clopidogrel Bisulfate (Clopidogrel 75 Mg Tab) 75 mg PO QDAY [facility] Famotidine (Famotidine 20 Mg Tab) 20 mg PO BID [facility] Gabapentin (Gabapentin 300 Mg Cap) 600 mg PO Q8HR [facility] Last Admin: 03/14/21 05:55 Dose: Not Given Documented by: Heparin Sodium (Porcine) (Heparin 5,000 Unit/1 Ml Vial) 5,000 unit SUB-Q Q12HR [facility] Hydromorphone HCl (Hydromorphone 1 Mg/1 Ml Inj) 0.5 mg IV Q4H PRN PRN Reason: PAIN/ NPO (7-10) Last Admin: 03/13/21 23:17 Dose: 0.5 mg Documented by: Sodium Chloride (Nacl 0.9% 1000 Ml) 1,000 mls @ 75 mls/hr IV DIRECT BAUTISTA Stop: 03/14/21 23:59 Last Admin: 03/14/21 05:55 Dose: 75 mls/hr Documented by: Insulin Human Isoph/Insulin Regular (Insulin Nph/Regular 70/30 Inj) 30 unit SUB-Q BIDDIAB [facility] Insulin Human Lispro (Insulin Lispro 100 Unit/Ml) 0 unit SUB-Q ACHS [facility]; Protocol Last Admin: 03/14/21 09:03 Dose: Not Given Documented by: Morphine Sulfate (Morphine 2 Mg/1 Ml Inj) 2 mg IV Q4H PRN PRN Reason: Pain, Moderate (4-6) Nicotine (Nicotine 14 Mg/24 Hr Patch) 14 mg TD QDAY [facility] Ondansetron HCl (Ondansetron 4 Mg/2 Ml Inj) 4 mg IV Q8H PRN PRN Reason: Nausea And Vomiting Oxycodone/Acetaminophen (Oxycodone /Acetaminophen 5-325mg Tab) 1 tab PO Q6H PRN PRN Reason: Pain, Moderate (4-6) Sodium Chloride (Sodium Chloride 0.9% 10 Ml Flush Syringe) 10 ml IV BID [facility] Sodium Chloride (Sodium Chloride 0.9% 10 Ml Flush Syringe) 10 ml IV PRN PRN PRN Reason: LINE FLUSH Physical Examination - Vital Signs Vital Signs: Vital Signs Temp Pulse Resp BP Pulse Ox 98.4 F 88 19 156/81 98 03/13/21 16:10 03/13/21 16:10 03/13/21 16:10 03/13/21 16:10 03/13/21 16:10 Results - Laboratory Findings CBC and BMP: 03/13/21 17:14 03/13/21 17:14 Abnormal Lab Findings: Abnormal Labs 03/13/21 03/13/21 03/13/21 17:14 17:14 17:14 Hgb 15.3 H Hct 46.2 H MCV 98 H MCH 33 H [place] % (Auto) 8.7 H PT 11.8 L APTT 23.2 L Glucose 318 H POC Glucose Alkaline Phosphatase Total Creatine Kinase 139 H Albumin 03/13/21 03/13/21 03/13/21 17:14 18:40 19:46 Hgb Hct MCV MCH [place] % (Auto) PT APTT Glucose POC Glucose 307 H 149 H Alkaline Phosphatase 146 H Total Creatine Kinase Albumin 3.8 L Assessment and Plan 65 yo female with hypertension, diabetes, ischemic stroke w/ no residual deficit who presents with a LKNormal 2 days ago with noted left hemiparesis. 1. Acute Ischemic Stroke (lacunar; icadx): ASA 325 mg PO qday, Plavix 75 mg PO qday x 21 days; MRI Brain w/o contrast, official report pending of CTA Head/Neck w/ & w/o contrast pending offical report, TTEcho, confirm LDL/HgbA1C/TSH, telemetry, SBP goal 160-200 mmHg and DBP 80-100 mmHg for 24 more hours. Statin therapy for a goal LDL of 70, when patient passes swallow evaluation. PT/OT/ST/Swallow evaluation. Long-term risk-factor modification, including a strict diet/exercise regimen for secondary stroke prophylaxis. 2. Hypertension - goal SBP 160-200 mmHg and DBP 80-100 mmHg for 24 more hours. 3. Diabetes Mellitus - maintain euglycemia. 4. Dyslipidemia - goal LDL of 70 w/ statin therapy if no contraindications. 5. Dysarthria / Dysphagia - st / swallow evaluation/monitoring. 6. Left-sided weakness - pt/ot evaluation/monitoring. 7. Unsteady Gait - pt/ot evaluation/monitoring. 8. Followup with Stroke Neurology in 6 weeks. Walker Chapin MD Neurology
--- NOTE | 2021-03-14 09:32 | Cat Scan Report ---
CTA neck without and with intravenous contrast material CLINICAL HISTORY: MAIN TECHNIQUE: Following acquisition of a timing bolus 0.625 mm thick contiguous axial scans were obtained from aort ic arch to the skull base during rapid bolus intravenous contrast infusion. In addition to evaluation of axial source images multiplanar reconstructions were produced and reviewed for this report. 3 courtney ne MIP reconstructions were produced and reviewed. Contrast dose report: Omnipaque 350: 100 ml, administered intravenously All CT examinations performed at this facility utilize modulated dose reduction, iterative reconstruc tion or weight-based dosing, as appropriate, to obtain a radiation dose which is as low as can reason ably be achieved. FINDINGS: Thoracic aorta:No abnormalities are identified along the course of the thoracic aorta. There is aberr ant origin of the right subclavian artery by atherosclerotic plaque is present at the origin of the l eft common carotid artery and left subclavian artery without associated stenosis. The origins of the great vessels have an otherwise unremarkable appearance. Left common carotid artery origin and left s ubclavian artery all have an unremarkable appearance. Right carotid artery: Calcified atherosclerotic plaque is seen in several locations along the course of the right common carotid artery without associated stenosis. Carotid bifurcation has a normal appe arance as does the cervical segments of the R ICA. Left carotid artery: Mild soft plaque is observed distal LCCA just proximal to raul. There is no as sociated hemodynamically significant stenosis. Carotid is unremarkable appearance as do the cervical segments of the LICA. Posterior circulation:The right vertebral artery takes its origin from the proximal right common rosas tid artery. This is a rare but described incidental anatomical variation. The vertebral arteries have an otherwise unremarkable appearance. Left vertebral artery is dominant. Both vertebral arteries con tribute to the basilar artery origin. The basilar artery has an unremarkable appearance. The degree of stenosis, if any, is determined utilizing NASCET like criteria. In this case there is no indication of hemodynamically significant stenosis at the carotid bifurcations or elsewhere. Evaluation of the nonvascular soft tissue structures reveal no abnormality. There is no indication of cervical lymphadenopathy. No abnormalities are seen along the course of the airway. Visualized porti ons of the parotid glands and the submandibular salivary glands have a normal appearance. Thyroid gla nd has a normal appearance. Evaluation of the lung apices reveals no evidence of lung nodule or infil trate. Evaluation of the cervical is remarkable for widespread cervical spondylosis which is most pronounced at the C5-6, C6-7 and C7-T1 levels. Multifocal neuroforaminal stenosis is evident. There is no indic ation of central canal stenosis. IMPRESSION: 1. No indication of hemodynamically significant stenosis at the carotid bifurcations or elsewhere. Signer Name: Juan Pitts MD Signed: 03/14/2021 9:28 AM Workstation Name: [id number]
--- NOTE | 2021-03-14 09:39 | Cat Scan Report ---
CTA head with intravenous contrast CLINICAL HISTORY: Cerebrovascular accident. TECHNIQUE: 0.625 mm thick contiguous axial scans were obtained from the skull base to the skull vertex during r apid bolus administration of intravenous contrast material. Multiplanar reconstructions were produced in the coronal and sagittal planes. In addition 3 plane MIP instructions were produced and reviewed for this report. The axial source images and reconstructed images were reviewed for this report. CONTRAST DOSE REPORT: Omnipaque 350: 100 ml administered intravenously. All CT scans at this location are performed using CT dose reduction for ALARA by means of automated e xposure control. FINDINGS: Internal carotid arteries: Extensively calcified atherosclerotic plaque is seen along the course of t he cavernous segments of both internal carotid arteries extending up into the ophthalmic and clinoid regions. Stenosis on the order of 75% is present at the proximal cavernous segment of the R ICA.. Middle cerebral arteries:Normal and symmetrical M1 segments of the middle cerebral arteries are demon strated. No abnormalities are seen on evaluation of the insular or opercular branches. Anterior cerebral arteries:Bilaterally symmetrical A1 segments are demonstrated. No abnormalities are seen along the course of the A2 segments or their visualized pericallosal branches. Vertebral arteries:Bilaterally symmetrical vertebral arteries are demonstrated. Both vertebral arteri es contribute to the basilar artery origin. Basilar artery:Basilar artery has an unremarkable appearance. Posterior cerebral arteries: Bilaterally symmetrical posterior cerebral arteries are identified. Dural sinuses: Dural venous sinuses are well demonstrated on this exam. There is no evidence of dural sinus thrombosis. Encephalomalacia seen in the right frontal lobe secondary to remote right MCA infarction. IMPRESSION: 1. Calcified atherosclerotic plaque along the cavernous segments of both internal carotid arteries as described above. This is associated with a 75% stenosis along the proximal cavernous segment of the R ICA. 2. No other evidence of intracranial stenosis. No indication of large vessel occlusion. 3. Remote right MCA infarction. Signer Name: Juan Pitts MD Signed: 03/14/2021 9:34 AM Workstation Name: [email or web address]
[2021-03-14] MEDS ORDERED: ASPIRIN EC 81 MG TAB PO SCH (10:00)
--- NOTE | 2021-03-14 10:03 | Magnetic Resonance Report ---
NONENHANCED MR SCAN OF THE BRAIN: INDICATION / CLINICAL INFORMATION: MAIN. Left-sided weakness TECHNIQUE: Multiplanar, multisequence MR images of the brain obtained. COMPARISON: CT scan of the head from 03/13/2021 FINDINGS: BRAIN / INTRACRANIAL CONTENTS: Subacute nonhemorrhagic infarction in the right lockhart radiata extendi ng towards the right insular cortex; punctate area of subacute ischemia in the right frontal operculu m along the inferior frontal gyrus; this infarction is more than 12 hours old (increased T2 signal in tensity) but less than 5 days old (low ADC) lack of susceptibility changes in the gradient echo image s would exclude hemorrhagic changes in these subacute ischemia. Encephalomalacia is seen in the right middle frontal gyrus with surrounding spongiosis. Chronic lacun ae seen in the right thalamus and right globus pallidus. Punctate areas of prominent perivascular spa nadira seen in both basal ganglia (e`tat crible`) Subacute infarction is bordering the encephalomalacia. Confluent periventricular and deep hemispheric white matter hyperintensities seen in both cerebral he mispheres more on the left side (Fazekas 2-3) due to chronic small vessel disease. Chronic changes ar e also seen in the palak due to chronic small vessel disease. Cerebellar hemispheres are normal. CRANIOCERVICAL JUNCTION: No significant abnormality. VASCULAR FLOW-VOIDS: No significant abnormality. ORBITS: No significant abnormality of visualized orbits. SINUSES / MASTOIDS: Mucosal thickening in one of the left mastoid air cells ADDITIONAL FINDINGS: None. IMPRESSION: 1. Subacute nonhemorrhagic ischemia in the right lockhart radiata extending towards the right insular c ortex and focal area of subacute ischemia in the right inferior frontal gyrus Chronic ischemic changes in the right middle frontal gyrus and in the right basal ganglia Signer Name: Michel Vaz MD Signed: 03/14/2021 9:58 AM Workstation Name: [id number]
[2021-03-14] MEDS: INSULIN NPH/REGULAR 70/30 INJ SUB-Q SCH ×2 (11:06→17:04)
--- NOTE | 2021-03-14 13:29 | Vascular Lab Report ---
"DUPLEX DOPPLER ULTRASOUND CAROTID, BILATERAL INDICATION / CLINICAL INFORMATION: stroke. COMPARISON: None available. FINDINGS: RIGHT CAROTID: - PLAQUE ESTIMATE (%): < 50% - CCA velocity: 77 cm/sec. - ICA peak systolic velocity: 77 cm/sec. - ICA/CCA PSV Ratio: 1.0 Right Vertebral Artery: Antegrade flow. LEFT CAROTID: - PLAQUE ESTIMATE: < 50% - CCA velocity: 78 cm/sec. - ICA peak systolic velocity: 70 cm/sec. - ICA/CCA PSV Ratio: 0.9 Left Vertebral Artery: Antegrade flow. IMPRESSION: 1. Right Internal Carotid Artery: Less than 50% diameter stenosis. 2. Left Internal Carotid Artery: Less than 50% diameter stenosis. Velocity criteria are extrapolated from diameter data as defined by the Society of Radiologists in [facility] Consensus Conference, Radiology 2003; 229;[id number]. Degree of || ICA PSV || Plaque || ICA/CCA Stenosis (%) || (cm/sec) || estimate (%) || PSV Ratio Normal ............. || ...<125........... || ...None......... || ...<2.0 <50................... || ...<125........... || ......<50......... || ...<2.0 50-69................ || ..125-230...... || ......>50......... || 2.0-4.0 >70 but <100... || >230.............. || .......>50........ || ...>4.0 Near occlusion || High/low/none || ...visible....... || variable Total occlusion || ....None........... || ..no lumen... || ....N/A Signer Name: Andrew SHEFFIELD Signed: 03/14/2021 1:25 PM Workstation Name: [email or web address]
[2021-03-14] MEDS: HEPARIN 5,000 UNIT/1 ML VIAL SUB-Q SCH ×2 (13:31→21:14)
[2021-03-14] MEDS: CLOPIDOGREL 75 MG TAB PO SCH (13:31)
[2021-03-14] MEDS: FAMOTIDINE 20 MG TAB PO SCH ×2 (13:31→21:14)
[2021-03-14] MEDS: ASPIRIN 325 MG TAB PO SCH (13:31)
[2021-03-14] MEDS: NICOTINE 14 MG/24 HR PATCH TD SCH (13:31)
[2021-03-14] MEDS: HYDROmorphone 1 MG/1 ML INJ IV PRN (21:15)
[2021-03-15] MEDS: GABAPENTIN 300 MG CAP PO SCH ×2 (06:34→13:36)
[2021-03-15] MEDS: INSULIN LISPRO 100 UNIT/ML SUB-Q SCH ×2 (08:15→12:11)
[2021-03-15 08:17] LABS: Basophils # (Auto) 0.1 K/mm3 (0.0-0.1); Basophils % (Auto) 0.8 % (0.0-1.8); Eosinophils # (Auto) 0.1 K/mm3 (0.0-0.4); Eosinophils % (Auto) 0.9 % (0.0-4.3); Hematocrit 46.6 % (30.3-42.9); Hemoglobin 15.4 gm/dl (10.1-14.3); Lymphocytes # (Auto) 2.7 K/mm3 (1.2-5.4); Lymphocytes % (Auto) 44.4 % (13.4-35.0); Mean Corpuscular HGB Conc 33 % (30-34); Mean Corpuscular Volume 97 fl (79-97); Monocytes # (Auto) 0.6 K/mm3 (0.0-0.8); Monocytes % (Auto) 10.6 % (0.0-7.3); Platelet Count 210 K/mm3 (140-440); Red Blood Count 4.79 M/mm3 (3.65-5.03)
[2021-03-15 08:43] LABS: Alanine Aminotransferase 19 units/L (7-56); Albumin 3.2 g/dL (3.9-5); Blood Urea Nitrogen 9 mg/dL (7-17); Calcium 8.2 mg/dL (8.4-10.2); Chol/HDL Ratio 5.73 %; HDL Cholesterol 41 mg/dL (40-59); Hemolysis Index 15; LDL Cholesterol,Direct 173 mg/dL (50-130)
[2021-03-15 09:03] LABS: BUN/Creatinine Ratio 15
--- NOTE | 2021-03-15 09:07 | Discharge Summary ---
Providers - Providers Date of Admission: 03/13/21 19:16 Date of discharge: 03/15/21 Attending physician: NENA NIÑO 03/13/21 19:00 Speech Therapy Evaluation and Treat [CONS] Routine Reason For Exam: failed swallow screen 03/14/21 Consult to Physician [CONS] Routine Comment: Consulting Provider: HARMEET NGUYEN Physician Instructions: Reason For Exam: Acute CVA 03/14/21 00:50 Occupational Therapy Evaluate and Treat [CONS] Routine Comment: Reason For Exam: Neuro deficits Physical Therapy Evaluation and Treat [CONS] Routine Comment: Reason For Exam: Neuro deficits Primary care physician: [employer]OVER [employer]ER Hospitalization Condition: Stable Hospital course: 65-year-old -[place] female with history of hypertension type 2 diabetes and previous CVA with right hemiparesis which she has completely recovered comes in for left-sided weakness for the last 2 days. Patient has left facial weakness and left upper and left lower extremity weakness for the last 2 days. Patient able to move left upper and left lower extremity to some extent but not to the normal level. Patient also has facial droop with her left side facial paralysis. Slight dysarthria present. Patient outside the range of TPA administration. No seizures. No ataxia. Patient states he can walk with the help of walker and some assistance. Telemetry neurology was not consulted because of obvious acute CVA. Patient being admitted for CVA work-up when in in-house neurology consultation and rehab/physical therapy/Occupational Therapy. No exposure to coronavirus. Hospital course 03/14. Patient seen and examined this AM at bedside. She has right facial droop, dysarthria and LLE and LLE weakness. MRI brain and CTA head and neck pending. She is on aspirin and plavix. Neurology has consulted. She mentions she was not on antiplatelets since last CVA 1 year ago. 03/15. MRI brain shows acute CVA. CTA head and neck negative for significant stenosis. She however had a 75% stenosis in the right ICA from atheromatous plaque. Patient will follow up with neurosurgery and vascular surgery as outpatient. She will continue aspirin 325 mg daily and Plavix 75 mg daily x21 days. She was scheduled to follow-up with a neurologist in the office. She does not have a PCP and will follow up with 1. She has been evaluated by physical therapy who recommends home with home PT. She has been advised to take all her medications as prescribed and she agrees. Disposition: [id number] HOME UNDER HOME HLTH Final Discharge Diagnosis (Prints w/discharge instructions): Acute CVA Time spent for discharge: 45 minutes Core Measure Documentation - Palliative Care Palliative Care/ Comfort Measures: Not Applicable - Core Measures Any of the following diagnoses?: stroke - Stroke Discharge Requirements Statin for LDL = or >70 mg/dl on DC: Yes Anticoag for atrial fib/atrial flutter: No Reason for no anticoag for AF/F on DC: Not Indicated Antithrombotic for ischemic stroke: Yes Exam - Physical Exam Narrative exam: VITAL SIGNS: Reviewed. GENERAL: Awake HEAD: No signs of head trauma. EYES: Pupils are equal. Extraocular motions intact. MOUTH: Oropharynx is normal. NECK: No adenopathy, no JVD. CHEST: Chest with diminished breath sounds bilaterally. No wheezes, rales, or rhonchi. CARDIAC: normal S1 and S2, without murmurs, gallops, or rubs. ABDOMEN: Soft, non tender and non distended. No rebound or guarding, and no masses palpated. Bowel Sounds normal. MUSCULOSKELETAL: No edema NEUROLOGIC EXAM: Alert and oriented x3. Facial droop+. LLE and LUE 4/5. SKIN: No obvious lesions - Constitutional Vitals: Temp Pulse Resp BP Pulse Ox 98.6 F 79 20 131/72 96 03/15/21 07:38 03/15/21 07:38 03/15/21 07:38 03/15/21 07:38 03/15/21 07:38 Plan Additional Instructions: Continue aspirin 325 mg daily. Continue Plavix 75 mg daily for 21 days and stop. Continue atorvastatin 80 mg daily. Follow-up with neurology in the office in 1 to 2 weeks. Follow-up with primary care doctor in 1 to 2 weeks. Continue to take insulin as prescribed. Continue take blood pressure medications as prescribed as well Follow up with: KWAME TURCIOS MD [Primary Care Provider] - 3-5 Days CARMINE FREEMAN MD [Staff Physician] - 7 Days SHAINA OLSON MD [Staff Physician] - 7 Days Prescriptions: AtorvaSTATin [Lipitor] 80 mg PO QHS #60 tablet Aspirin 325 mg PO QDAY #30 tablet Insulin NPH/Regular [NovoLIN 70/30] 36 unit SUB-Q BIDDIAB #20 ml Clopidogrel [Plavix] 75 mg PO QDAY #30 tablet
--- NOTE | 2021-03-15 09:27 | Progress Note ---
Assessment and Plan 65 yo female with hypertension, diabetes, ischemic stroke w/ no residual deficit who presents with a LKNormal 2 days ago with noted left hemiparesis. 1. Acute Ischemic Stroke ([id number] emboli): ASA 325 mg PO qday, Plavix 75 mg PO qday x 20 days; MRI Brain w/o contrast confirms acute infarction, TTEcho, confirm LDL/HgbA1C/TSH, telemetry, SBP goal 160-200 mmHg and DBP 80-100 mmHg for 24 more hours. Statin therapy for a goal LDL of 70, when patient passes swallow evaluation. PT/OT/ST/Swallow evaluation. Long-term risk-factor modification, including a strict diet/exercise regimen for secondary stroke prophylaxis. 2. ALVARO Stenosis - this is symptomatic; recommend transfer for possible cerebral angiogram and if amenable to stenting vs. maximum medical therapy. 3. Hypertension - goal SBP 160-200 mmHg and DBP 80-100 mmHg for 24 more hours. 3. Diabetes Mellitus - maintain euglycemia. 4. Dyslipidemia - goal LDL of 70 w/ statin therapy if no contraindications. 5. Dysarthria / Dysphagia - st / swallow evaluation/monitoring. 6. Left-sided weakness - pt/ot evaluation/monitoring. 7. Unsteady Gait - pt/ot evaluation/monitoring. 8. Followup with Stroke Neurology in 6 weeks. Walker Chapin MD Neurology Subjective Date of service: 03/15/21 Objective - Vital Sign Vital Signs - 12hr 03/14/21 03/14/21 03/14/21 21:45 23:00 23:17 Temperature 98.6 F Pulse Rate 83 Respiratory 20 18 Rate Respiratory Rate [Left Hip] Blood Pressure 148/103 O2 Sat by Pulse Oximetry 03/15/21 03/15/21 03/15/21 01:00 03:48 07:38 Temperature 97.8 F 98.6 F Pulse Rate 75 79 Respiratory 18 20 Rate Respiratory 20 Rate [Left Hip] Blood Pressure 142/89 131/72 O2 Sat by Pulse 96 96 Oximetry - Laboratory Findings CBC and BMP: 03/15/21 07:04 03/15/21 07:04 Abnormal Lab Findings: Abnormal Labs 03/13/21 03/13/21 03/13/21 17:14 17:14 17:14 Hgb 15.3 H Hct 46.2 H MCV 98 H MCH 33 H Lymph % (Auto) Sargent % (Auto) 8.7 H PT 11.8 L APTT 23.2 L Glucose 318 H POC Glucose Hemoglobin A1c Calcium Alkaline Phosphatase Total Creatine Kinase 139 H Total Protein Albumin Triglycerides Cholesterol LDL Cholesterol Direct 03/13/21 03/13/21 03/13/21 17:14 17:41 18:40 Hgb Hct MCV MCH Lymph % (Auto) Sargent % (Auto) PT APTT Glucose POC Glucose 307 H Hemoglobin A1c 11.3 H Calcium Alkaline Phosphatase 146 H Total Creatine Kinase Total Protein Albumin 3.8 L Triglycerides Cholesterol LDL Cholesterol Direct 03/13/21 03/14/21 03/14/21 19:46 07:20 12:03 Hgb Hct MCV MCH Lymph % (Auto) Sargent % (Auto) PT APTT Glucose POC Glucose 149 H 270 H 262 H Hemoglobin A1c Calcium Alkaline Phosphatase Total Creatine Kinase Total Protein Albumin Triglycerides Cholesterol LDL Cholesterol Direct 03/14/21 03/14/21 03/15/21 16:34 20:29 07:04 Hgb 15.4 H Hct 46.6 H MCV MCH Lymph % (Auto) 44.4 H Sargent % (Auto) 10.6 H PT APTT Glucose POC Glucose 376 H 152 H Hemoglobin A1c Calcium Alkaline Phosphatase Total Creatine Kinase Total Protein Albumin Triglycerides Cholesterol LDL Cholesterol Direct 03/15/21 07:04 Hgb Hct MCV MCH Lymph % (Auto) Sargent % (Auto) PT APTT Glucose 124 H POC Glucose Hemoglobin A1c Calcium 8.2 L Alkaline Phosphatase Total Creatine Kinase Total Protein 6.1 L Albumin 3.2 L Triglycerides 230 H Cholesterol 235 H LDL Cholesterol Direct 173 H
[2021-03-15] MEDS: INSULIN NPH/REGULAR 70/30 INJ SUB-Q SCH (09:29)
[2021-03-15] MEDS: HEPARIN 5,000 UNIT/1 ML VIAL SUB-Q SCH (09:29)
[2021-03-15] MEDS: NICOTINE 14 MG/24 HR PATCH TD SCH (09:29)
[2021-03-15] MEDS: ASPIRIN 325 MG TAB PO SCH (09:29)
[2021-03-15] MEDS: FAMOTIDINE 20 MG TAB PO SCH (09:29)
[2021-03-15] MEDS: CLOPIDOGREL 75 MG TAB PO SCH (09:29)
[2021-03-15 16:32] VITALS: BP 162/98
--- NOTE | 2021-03-15 17:30 | Electrocardiograph Report ---
[facility] Test Date: 2021-03-13 Test Time: 18:04:00 Pat Name: MARIAELENA BASS Department: Room: A470 1 Gender: F [employer] Compensation Manager: GIANLUCA : [id number] Requested By: AMINA JAMIL Order Number: [id number] Reading MD: Trenton Saba Measurements Intervals [place] Rate: 84 P: 66 [place]: 145 QRS: 7 QRSD: 75 T: 74 QT: 386 QTc: 457 Interpretive Statements Sinus rhythm Low voltage, precordial leads No previous ECG available for comparison Electronically Signed On 03-15-2021 17:29:57 EDT by Trenton Saba
== END 2021-03-15 18:27 | disposition home health service (06) | DRG 65 ==
LOC: ED 16:06 → 4A 19:16
PROVIDERS: ADMIT Internal Medicine; ATTEND Internal Medicine
DX: I63.9 Cerebral infarction, unspecified (principal); G81.94 Hemiplegia, unspecified affecting left nondominant side; E44.1 Mild protein-calorie malnutrition; I11.0 Hypertensive heart disease with heart failure; I50.9 Heart failure, unspecified; F17.200 Nicotine dependence, unspecified, uncomplicated; J45.909 Unspecified asthma, uncomplicated; Z79.82 Long term (current) use of aspirin; E11.65 Type 2 diabetes mellitus with hyperglycemia; R26.81 Unsteadiness on feet; Z88.0 Allergy status to penicillin; E78.5 Hyperlipidemia, unspecified
CPT/HCPCS: 36415; 70450; 70496; 70498; 70551; 71045; 80048; 80053; 80061; 80076; 81001; 82550; 82553; 82962; 83036; 84484; 85025; 85610; 85670; 85730; 93005; 93306; 93880; 96365; 96375; G0378; A9270-GY; J1170; J1644; J1815; J7030; Q9967

== ENCOUNTER 2021-03-29 16:41 | Emergency (ER) | payer MEDICAID ==
[2021-03-29 19:11] VITALS: BP 153/78
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
== END 2021-03-29 23:00 | disposition home or self-care (01) ==
LOC: ED 16:41
DX: S43.401A Unspecified sprain of right shoulder joint, initial encounter (principal); S20.219A Contusion of unspecified front wall of thorax, initial encounter; M62.838 Other muscle spasm; I11.0 Hypertensive heart disease with heart failure; I50.9 Heart failure, unspecified; E11.9 Type 2 diabetes mellitus without complications; J45.909 Unspecified asthma, uncomplicated; M19.91 Primary osteoarthritis, unspecified site; F17.200 Nicotine dependence, unspecified, uncomplicated; Z79.899 Other long term (current) drug therapy; Z88.0 Allergy status to penicillin; V49.59XA Passenger injured in collision with other motor vehicles in traffic accident, initial encounter; Y93.89 Activity, other specified; Y92.410 Unspecified street and highway as the place of occurrence of the external cause; Y99.8 Other external cause status
CPT/HCPCS: 71046; 72125; 72131

== ENCOUNTER 2021-04-03 11:29 | Inpatient (IN) | payer MEDICAID ==
--- NOTE | 2021-04-03 12:03 | Consultation ---
History of Present Illness History of present illness: [facility] Consult Note # Demographics Consult Type: Acute Stroke Level 2 (4.5-24 hrs) Patient Location: Emergency Room First Name: Ronit Last Name: Robin Date of : 1955 Age: 65 Gender: Female Time of Initial Page (): 04/03/2021, 11:33 Time of Return Call ( Time): 04/03/2021, 11:35 # HPI Chief Complaint: aphasia History: 65F with HTN, DM, prior strokes (last two weeks ago) presents with aphasia. LKWT 2100 evening prior. Not talking, only moaning. Stroke two weeks ago with left sided weakness. # Scores Time of exam and NIHSS (): 04/03/2021, 11:40 Level of Consciousness 1a: [0] = Alert; keenly responsive LOC Questions 1b: [0] = Answers both questions correctly LOC Commands 1c: [2] = Performs neither correctly Best Gaze 2: [0] = Normal Visual 3: [0] = No visual loss Facial Palsy 4: [0] = Normal symmetrical movements Motor Arm Left 5a: [4] = No movement Motor Arm Right 5b: [2] = Some effort against gravity Motor Leg Left 6a: [4] = No movement Motor Leg Right 6b: [2] = Some effort against gravity Limb Ataxia 7: [0] = Absent Sensory 8: [2] = Severe to total sensory loss Best Language 9: [2] = Severe aphasia Dysarthria 10: [2] = Severe dysarthria Extinction and Inattention 11: [0] = No abnormality NIHSS Total: 22 # Data Time Head CT personally read by me (): 04/03/2021, 11:[address]: no bleed, preliminarily reviewed by me, please refer to radiology read for official reading CTA Head: no large vessel occlusion, preliminarily reviewed by me, please refer to radiology read for official reading, significant stenosis of the left ICA CTA Neck: patent vessels, preliminarily reviewed by me, please refer to radiology read for official reading # Assessment Impression: Ischemic Stroke (Acute), Intracranial atherosclerosis # Plan Thrombolytic/Intervention: NOT IV Thrombolytic or IA Intervention Thrombolytic Exclusion: > 4.5 hours Intraarterial Exclusion: no large vessel occlusion (LVO) Target Blood Pressure: SBP < 220, DBP < 105 Labs: hemoglobin A1c, lipid panel Imaging: (urgency: routine admission): MRI Brain without contrast Diagnostic Test: echo with bubble study Therapy/Evaluation: NPO until swallow evaluation, PT/OT evaluation, speech/swallow consultation Medication: ASA 325 daily, atorvastatin 80 and tailor daily dose to LDL < 70 goal DVT Prophylaxis: SCD, chemical DVT prophylaxis Other: permissive hypertension, telemetry monitoring, I have discussed my recommendations with the referring provider Additional Recommendations: Would start Plavix 75 daily if no significant reperfusion hemorrhage on MRI; would treat with ASA 325 and Plavix 75 x3 months given intracranial atherosclerosis, unless a need for anticoagulation is found Disposition: admit # Logistics Telemedicine: Interactive 2 way audio and visual telecommunication technology was utilized during this visit Electronically signed at 04/03/2021 12:02 (Eastern Time) by Sal Emmanuel MD Medications and Allergies Allergies Allergy/AdvReac Type Severity Reaction Status Date / Time Penicillins Allergy Swelling Verified 01/08/16 07:21 Home Medications Medication Instructions Recorded Confirmed Last Taken Type Gabapentin 600 mg PO Q8HR 07/19/19 03/14/21 Unknown History Famotidine [Pepcid] 20 mg PO BID #60 tablet 07/23/19 03/14/21 Unknown Rx Nicotine [Habitrol] 14 mg TD QDAY #30 patch 07/23/19 03/14/21 Unknown Rx Aspirin 325 mg PO QDAY #30 tablet 03/15/21 Unknown Rx AtorvaSTATin [Lipitor] 80 mg PO QHS #60 tablet 03/15/21 Unknown Rx Clopidogrel [Plavix] 75 mg PO QDAY #30 tablet 03/15/21 Unknown Rx Insulin NPH/Regular [NovoLIN 70/30] 36 unit SUB-Q BIDDIAB #20 ml 03/15/21 Unknown Rx Baclofen 20 mg PO Q8H PRN #24 tablet 03/29/21 Unknown Rx Ibuprofen [Motrin] 800 mg PO Q8HR PRN #30 tablet 03/29/21 Unknown Rx traMADoL [Ultram] 50 mg PO Q6HR PRN #12 tablet 03/29/21 Unknown Rx
--- NOTE | 2021-04-03 12:10 | Emergency Department Report ---
ED Neuro Deficit HPI - General Chief Complaint: Neuro Symptoms/Deficit Stated Complaint: POSSIBLE CVA Time Seen by Provider: 04/03/21 11:32 Source: EMS - History of Present Illness Initial Comments: Patient is 65 years old female with history of hypertension, diabetes and stroke 2 weeks ago with left-sided weakness. Patient brought to the emergency room via EMS from home for evaluation of possible stroke. EMS stated that patient symptoms started last night at 9 PM when was the last time was seen normal. Patient is aphasic with left facial droop. Stroke protocol immediately initiated and patient moved to CT for stat CT brain without contrast. Teleneurologist immediately consulted and patient examined via video conference. Dr. Emmanuel Stated that patient is not a TPA candidate since the onset of time is more than 4.5-hour. -: Last night Location: speech, left face, left arm, left leg Presenting Symptoms: Present: Weak/Paralyzed One Side, Facial Droop/Numbness, Unable to Speak Clearly History of same: Yes Place: home - Related Data Home Medications: Home Medications Medication Instructions Recorded Confirmed Last Taken Gabapentin 600 mg PO Q8HR 07/19/19 03/14/21 Unknown Previous Rx's Medication Instructions Recorded Last Taken Type Famotidine [Pepcid] 20 mg PO BID #60 tablet 07/23/19 Unknown Rx Nicotine [Habitrol] 14 mg TD QDAY #30 patch 07/23/19 Unknown Rx Aspirin 325 mg PO QDAY #30 tablet 03/15/21 Unknown Rx AtorvaSTATin [Lipitor] 80 mg PO QHS #60 tablet 03/15/21 Unknown Rx Clopidogrel [Plavix] 75 mg PO QDAY #30 tablet 03/15/21 Unknown Rx Insulin NPH/Regular [NovoLIN 70/30] 36 unit SUB-Q BIDDIAB #20 ml 03/15/21 Unknown Rx Baclofen 20 mg PO Q8H PRN #24 tablet 03/29/21 Unknown Rx Ibuprofen [Motrin] 800 mg PO Q8HR PRN #30 tablet 03/29/21 Unknown Rx traMADoL [Ultram] 50 mg PO Q6HR PRN #12 tablet 03/29/21 Unknown Rx Allergies/Adverse Reactions: Allergies Allergy/AdvReac Type Severity Reaction Status Date / Time Penicillins Allergy Swelling Verified 01/08/16 07:21 ED Review of Systems ROS: Stated complaint: POSSIBLE CVA Other details as noted in HPI Comment: Unobtainable due to pts medical conditions ED Past Medical Hx - Past Medical History Hx Hypertension: Yes Hx CVA: Yes Hx Congestive Heart Failure: Yes Hx Diabetes: Yes Hx Arthritis: Yes Hx Asthma: Yes Hx COPD: No - Social History Smoking Status: Current Every Day Smoker - Medications Home Medications: Home Medications Medication Instructions Recorded Confirmed Last Taken Type Gabapentin 600 mg PO Q8HR 07/19/19 03/14/21 Unknown History Famotidine [Pepcid] 20 mg PO BID #60 tablet 07/23/19 03/14/21 Unknown Rx Nicotine [Habitrol] 14 mg TD QDAY #30 patch 07/23/19 03/14/21 Unknown Rx Aspirin 325 mg PO QDAY #30 tablet 03/15/21 Unknown Rx AtorvaSTATin [Lipitor] 80 mg PO QHS #60 tablet 03/15/21 Unknown Rx Clopidogrel [Plavix] 75 mg PO QDAY #30 tablet 03/15/21 Unknown Rx Insulin NPH/Regular [NovoLIN 70/30] 36 unit SUB-Q BIDDIAB #20 ml 03/15/21 Unknown Rx Baclofen 20 mg PO Q8H PRN #24 tablet 03/29/21 Unknown Rx Ibuprofen [Motrin] 800 mg PO Q8HR PRN #30 tablet 03/29/21 Unknown Rx traMADoL [Ultram] 50 mg PO Q6HR PRN #12 tablet 03/29/21 Unknown Rx ED Neuro Physical Exam - General General appearance: alert, in no apparent distress Suspected Stroke: Yes - Head Head exam: Present: atraumatic, normocephalic, normal inspection - Eye Eye exam: Present: normal appearance - ENT ENT exam: Present: normal exam, normal orophraynx, mucous membranes moist - Neck Neck exam: Present: normal inspection, full ROM. Absent: tenderness, meningismus - Respiratory Respiratory exam: Present: normal lung sounds bilaterally - Cardiovascular Cardiovascular Exam: Present: regular rate, normal rhythm, normal heart sounds - GI/Abdominal GI/Abdominal exam: Present: soft, normal bowel sounds. Absent: distended, tenderness, guarding, rebound, rigid, organomegaly, mass, bruit, pulsatile mass - Extremities Exam Extremities exam: Present: normal inspection, full ROM, normal capillary refill. Absent: tenderness - Back Exam Back exam: Present: normal inspection, full ROM. Absent: CVA tenderness (R), CVA tenderness (L) - Neurological Exam Neurological exam: Present: alert - NIHSS Assessment Interval: Baseline 1a. Level of Consciousness: alert/keenly responsive 1b. LOC Questions: answers no questions correctly 1c. LOC Commands: performs no tasks correctly 2. Best Gaze: normal 3. Visual: no visual loss 4. Facial Palsy: minor paralysis 5b. Motor Arm Right: no drift 5a. Motor Arm Left: no gravity effort 6a. Motor Leg Left: no gravity effort 6b. Motor Leg Right: no drift 7. Limb Ataxia: absent 8. Sensory: no response/quadraplegic 9. Best Language: mute/global aphasia 10. Dysarthria: mute/anarrthric 11. Extinction/Inattention: no abnormality Total Score: 18 Stroke Severity: Moderate to Severe Stroke - Psychiatric Psychiatric exam: Present: flat affect - Skin Skin exam: Present: warm, intact, normal color - Lab Data Result diagrams: 04/03/21 12:30 04/03/21 12:30 Lab Results 04/03/21 04/03/21 Range/Units 12:30 12:30 WBC 12.8 H (4.5-11.0) K/mm3 RBC 5.41 H (3.65-5.03) M/mm3 Hgb 17.4 H (10.1-14.3) gm/dl Hct 52.8 H (30.3-42.9) % MCV 98 H (79-97) fl MCH 32 (28-32) pg MCHC 33 (30-34) % RDW 14.3 (13.2-15.2) % Plt Count 256 (140-440) K/mm3 Lymph % (Auto) 11.6 L (13.4-35.0) % [place] % (Auto) 2.2 (0.0-7.3) % Eos % (Auto) 0.0 (0.0-4.3) % Baso % (Auto) 0.6 (0.0-1.8) % Lymph # (Auto) 1.5 (1.2-5.4) K/mm3 [place] # (Auto) 0.3 (0.0-0.8) K/mm3 Eos # (Auto) 0.0 (0.0-0.4) K/mm3 Baso # (Auto) 0.1 (0.0-0.1) K/mm3 Seg Neutrophils % 85.6 H (40.0-70.0) % Seg Neutrophils # 11.0 H (1.8-7.7) K/mm3 Sodium 136 L (137-145) mmol/L Potassium 4.1 (3.6-5.0) mmol/L Chloride 98.4 (98-107) mmol/L Carbon Dioxide 15 L (22-30) mmol/L Anion Gap 27 mmol/L BUN 14 (7-17) mg/dL Creatinine 0.7 (0.6-1.2) mg/dL Estimated GFR > 60 ml/min BUN/Creatinine Ratio 20 % Glucose 294 H (65-100) mg/dL Calcium 9.2 (8.4-10.2) mg/dL Total Bilirubin 0.40 (0.1-1.2) mg/dL Direct Bilirubin < 0.2 (0-0.2) mg/dL Indirect Bilirubin 0.2 mg/dL AST 27 (5-40) units/L ALT 21 (7-56) units/L Alkaline Phosphatase 115 (35-129) units/L Total Creatine Kinase 504 H (30-135) units/L CK-MB (CK-2) 3.8 (0.0-4.0) ng/mL CK-MB (CK-2) Rel Index 0.7 (0-4) Troponin T < 0.010 (0.00-0.029) ng/mL Total Protein 8.3 H (6.3-8.2) g/dL Albumin 3.7 L (3.9-5) g/dL Albumin/Globulin Ratio 0.8 % - EKG Data -: EKG Interpreted by Fl EKG shows normal: sinus rhythm Rate: normal Interpretation: no acute changes - Radiology Data Radiology results: report reviewed - Medical Decision Making Patient is 65 years old female with history of hypertension, diabetes and stroke 2 weeks ago with left-sided weakness. Patient brought to the emergency room via EMS from home for evaluation of possible stroke. EMS stated that patient symptoms started last night at 9 PM when was the last time was seen normal. Patient is aphasic with left facial droop. Stroke protocol immediately initiated and patient moved to CT for stat CT brain without contrast. Teleneurologist immediately consulted and patient examined via video conference. Dr. Emmanuel Stated that patient is not a TPA candidate since the onset of time is more than 4.5-hour. EKG shows sinus rhythm. Labs reviewed and is unremarkable except for mild leukocytosis. I discussed the patient with Dr. Calle, he agreed to admit the patient to medical service for further management. Critical Care Time: Yes Critical care time in (mins) excluding proc time.: 30 Critical care attestation.: If time is entered above; I have spent that time in minutes in the direct care of this critically ill patient, excluding procedure time. ED Disposition Clinical Impression: Acute CVA (cerebrovascular accident) Disposition: DC-[id number] OP ADMIT IP TO THIS HOSP Is pt being admited?: Yes Condition: Stable
--- NOTE | 2021-04-03 12:11 | Cat Scan Report ---
CT HEAD WITHOUT CONTRAST INDICATION / CLINICAL INFORMATION: Code stroke. Right-sided weakness and aphasia. TECHNIQUE: All CT scans at this location are performed using CT dose reduction for ALARA by means of automated e xposure control. COMPARISON: Head CT 03/13/2021 and MRI brain 03/14/2021 FINDINGS: HEMORRHAGE: No evidence of intracranial hemorrhage or extra-axial fluid collection. EXTRA-AXIAL SPACES: Cortical sulci, sylvian fissures and basilar cisterns have an unremarkable appear ance. VENTRICULAR SYSTEM: The third and lateral ventricles are of normal size and configuration. CEREBRAL PARENCHYMA: Decreased attenuation is observed in the right frontal lobe secondary to late s ubacute right MCA infarction. Findings are similar to those demonstrated on head CT 03/13/2021. Decreas ed attenuation is also seen in a right ganglia capsular distribution unchanged from prior study. Mild periventricular white matter lucency is observed in both cerebral hemispheres consistent with microv ascular ischemia. No additional areas of abnormal brain parenchymal attenuation are identified. MIDLINE SHIFT OR HERNIATION: There is no mass effect. CEREBELLUM / BRAINSTEM: Brainstem and cerebellum have an unremarkable appearance. MIDLINE STRUCTURES:No abnormalities of the pituitary gland or pineal region are identified. INTRACRANIAL VESSELS: Calcified atherosclerotic plaque is seen along the course of the cavernous segm ents of both internal carotid arteries. ORBITS: visualized portions of the orbits have an unremarkable appearance. SOFT TISSUES of HEAD: No significant abnormality. CALVARIUM: Evaluation of bone windows reveals no abnormalities. PARANASAL SINUSES / MASTOID AIR CELLS: Visualized portions of the paranasal sinuses are free from inf lammatory mucosal disease. Mastoid air cells are normally pneumatized. IMPRESSION: 1. Evidence of late subacute right MCA infarction. 2. No acute intracranial abnormality identified. CODE STROKE: Time of Communication (SENSOR SPECIALIST/CDT): 1100 hours Central standard time Licensed Practitioner Receiving Report: Dr. Argueta of the [facility] emergency department. Signer Name: Juan Pitts MD Signed: 04/03/2021 12:06 PM Workstation Name: [id number]
--- NOTE | 2021-04-03 12:18 | Cat Scan Report ---
CTA neck without and with intravenous contrast material CLINICAL HISTORY: stroke sx TECHNIQUE: Following acquisition of a timing bolus 0.625 mm thick contiguous axial scans were obtained from aort ic arch to the skull base during rapid bolus intravenous contrast infusion. In addition to evaluation of axial source images multiplanar reconstructions were produced and reviewed for this report. 3 courtney ne MIP reconstructions were produced and reviewed. Contrast dose report: Omnipaque 300: ml, administered intravenously All CT examinations performed at this facility utilize modulated dose reduction, iterative reconstruc tion or weight-based dosing, as appropriate, to obtain a radiation dose which is as low as can reason ably be achieved. FINDINGS: Thoracic aorta: The thoracic aorta was inadvertently excluded from this examination. Again demonstrat ed is a. Origin of the right subclavian artery. Right carotid artery:No abnormalities are seen along the course of the RCCA, at the right carotid bif urcation or along the cervical portions of the ALVARO. Left carotid artery: No abnormalities are noted along the course of the left common carotid artery, a t the left carotid bifurcation or along the course of the cervical segments of the LICA. Posterior circulation:The vertebral arteries have an unremarkable appearance. Both vertebral arteries contribute to the basilar artery origin. The basilar artery has an unremarkable appearance. The degree of stenosis, if any, is determined utilizing NASCET like criteria. In this case there is no indication of hemodynamically significant stenosis at the carotid bifurcations or elsewhere. Evaluation of the nonvascular soft tissue structures reveal no abnormality. There is no indication of cervical lymphadenopathy. No abnormalities are seen along the course of the airway. Visualized porti ons of the parotid glands and the submandibular salivary glands have a normal appearance. Thyroid gla nd has a normal appearance. Evaluation of the lung apices reveals no evidence of lung nodule or infil trate. Evaluation of the cervical spine revealed widespread cervical spondylosis with no indication of centr al canal stenosis. IMPRESSION: 1. No indication of hemodynamically significant stenosis at the carotid bifurcation or elsewhere. Signer Name: Juan Pitts MD Signed: 04/03/2021 12:14 PM Workstation Name: [id number]
--- NOTE | 2021-04-03 12:27 | Cat Scan Report ---
CTA head with intravenous contrast CLINICAL HISTORY: stroke sx TECHNIQUE: 0.625 mm thick contiguous axial scans were obtained from the skull base to the skull vertex during r apid bolus administration of intravenous contrast material. Multiplanar reconstructions were produced in the coronal and sagittal planes. In addition 3 plane MIP instructions were produced and reviewed for this report. The axial source images and reconstructed images were reviewed for this report. CONTRAST DOSE REPORT: Omnipaque 350: 100 ml administered intravenously. Technique: All CT scans at this location are performed using CT dose reduction for ALARA by means of automated e xposure control. FINDINGS: Internal carotid arteries: Extensively calcified atherosclerotic plaque is seen along the course of t he cavernous segments of both internal carotid arteries extending up into the ophthalmic and clinoid regions. Stenosis on the order of 75% is present at the proximal cavernous segment of the R ICA.. Middle cerebral arteries:Normal and symmetrical M1 segments of the middle cerebral arteries are demon strated. No abnormalities are seen on evaluation of the insular or opercular branches on the left. Anterior cerebral arteries:Bilaterally symmetrical A1 segments are demonstrated. There is a paucity o f opacified vessels in the region of the patient's right frontal lobe infarction. No abnormalities ar e seen along the course of the A2 segments or their visualized pericallosal branches. Vertebral arteries:Bilaterally symmetrical vertebral arteries are demonstrated. Both vertebral arteri es contribute to the basilar artery origin. Basilar artery:Basilar artery has an unremarkable appear ance. Posterior cerebral arteries: Bilaterally symmetrical posterior cerebral arteries are identified. Dural sinuses: Dural venous sinuses are well demonstrated on this exam. There is no evidence of dural sinus thrombosis. Encephalomalacia seen in the right frontal lobe secondary to remote right MCA infarction with superim posed late subacute infarction in the same vascular distribution based on comparison to MRI brain 03/14. IMPRESSION: 1. Calcified atherosclerotic plaque along the cavernous segments of both internal carotid arteries as described above. This is associated with a 75% stenosis along the proximal cavernous segment of the R ICA. 2. No other evidence of intracranial stenosis. No indication of large vessel occlusion. 3. Remote right MCA infarction with superimposed recent infarction the same vascular distribution bas ed on comparison to MRI brain 03/14/2021. Signer Name: Juan Pitts MD Signed: 04/03/2021 12:22 PM Workstation Name: [id number]
[2021-04-03 12:55] LABS: Basophils # (Auto) 0.1 K/mm3 (0.0-0.1); Basophils % (Auto) 0.6 % (0.0-1.8); Hematocrit 52.8 % (30.3-42.9); Hemoglobin 17.4 gm/dl (10.1-14.3); Lymphocytes # (Auto) 1.5 K/mm3 (1.2-5.4); Lymphocytes % (Auto) 11.6 % (13.4-35.0); Mean Corpuscular HGB Conc 33 % (30-34); Mean Corpuscular Volume 98 fl (79-97); Monocytes # (Auto) 0.3 K/mm3 (0.0-0.8); Monocytes % (Auto) 2.2 % (0.0-7.3); Platelet Count 256 K/mm3 (140-440); Red Blood Count 5.41 M/mm3 (3.65-5.03); Red Cell Distribution Width 14.3 % (13.2-15.2)
[2021-04-03 13:31] LABS: Creatine Kinase MB 3.8 ng/mL (0.0-4.0)
[2021-04-03 13:33] LABS: Alanine Aminotransferase 21 units/L (7-56); Albumin 3.7 g/dL (3.9-5); Blood Urea Nitrogen 14 mg/dL (7-17); Calcium 9.2 mg/dL (8.4-10.2); Hemolysis Index 41
[2021-04-03 13:56] LABS: BUN/Creatinine Ratio 20; Bilirubin,Direct < 0.2 mg/dL (0-0.2)
--- NOTE | 2021-04-03 14:02 | History and Physical Report ---
History of Present Illness Chief complaint: She had a stroke History of present illness: 65 YO Female with CVA on DAPT, HTN, DM, Diastolic CHF, GERD, Nicotine Dependence presents to ED for evaluation. Pt is dysarthric and able to provide history at time of evaluation. Patient history provided by EMS staff, ED staff, as well as the patient's family. As per family the patient was in her usual state of health yesterday and developed since left-sided weakness around 2100 hrs. Patient went to bed and awakened from sleep with persistent symptoms. EMS was notified and upon arrival of the patient was found to have a neurologic deficit. A code stroke was called and the patient was transported to [facility] for further ca re and evaluation of the aforementioned symptoms. The patient was seen and evaluated in the emergency department. All lab and imaging studies reviewed. The patient was found to have symptoms consistent with CVA. Teleneurology team consulted in ED. Patient deemed to be outside therapeutic window for TPA. The patient was placed in observation status and admitted to telemetry and initiated on CVA protocol. No reports of fever, chills, chest pain, palpitation, productive cough, skin rash, recent ill contacts, or known exposure to COVID-19. Prior admission on 03/13/2021 reviewed. All medication listed at time of admission has been reconciled. Advanced care planning conducted in ED. Past History Past Medical History: diabetes, heart failure, hypertension, stroke Past Surgical History: No surgical history, Other (Reviewed) Social history: single, smoking. denies: alcohol abuse, prescription drug abuse Family history: diabetes, hypertension Medications and Allergies Allergies Allergy/AdvReac Type Severity Reaction Status Date / Time Penicillins Allergy Swelling Verified 01/08/16 07:21 Home Medications Medication Instructions Recorded Confirmed Last Taken Type Gabapentin 600 mg PO Q8HR 07/19/19 03/14/21 Unknown History Famotidine [Pepcid] 20 mg PO BID #60 tablet 07/23/19 03/14/21 Unknown Rx Nicotine [Habitrol] 14 mg TD QDAY #30 patch 07/23/19 03/14/21 Unknown Rx Aspirin 325 mg PO QDAY #30 tablet 03/15/21 Unknown Rx AtorvaSTATin [Lipitor] 80 mg PO QHS #60 tablet 03/15/21 Unknown Rx Clopidogrel [Plavix] 75 mg PO QDAY #30 tablet 03/15/21 Unknown Rx Insulin NPH/Regular [NovoLIN 70/30] 36 unit SUB-Q BIDDIAB #20 ml 03/15/21 Unknown Rx Baclofen 20 mg PO Q8H PRN #24 tablet 03/29/21 Unknown Rx Ibuprofen [Motrin] 800 mg PO Q8HR PRN #30 tablet 03/29/21 Unknown Rx traMADoL [Ultram] 50 mg PO Q6HR PRN #12 tablet 03/29/21 Unknown Rx Review of Systems Constitutional: weakness, no fever, no chills, no sweats Ears, nose, mouth and throat: no ear pain, no ear discharge, no decreased heari ng Cardiovascular: no chest pain, no orthopnea, no rapid/irregular heart beat, no edema Respiratory: no cough, no excessive sputum, no shortness of breath Gastrointestinal: no nausea, no vomiting, no constipation Genitourinary Female: no pelvic pain, no flank pain, no dysuria, no urinary frequency, no urgency Rectal: no pain, no incontinence, no bleeding Musculoskeletal: no neck stiffness, no neck pain, no arm numbness/tingling, no leg numbness/tingling Integumentary: no rash, no pruritis, no redness, no wounds, no jaundice Neurological: weakness, ataxia, lack of coordination, change in speech, gait dysfunction, motor disturbance, no numbness, no seizures Psychiatric: no anxiety, no memory loss, no sleep disturbances, no insomnia, no hypersomnia, no change in appetite Endocrine: no cold intolerance, no heat intolerance, no polyphagia, no excessive thirst, no polyuria Hematologic/Lymphatic: no easy bruising, no easy bleeding, no lymphedema Allergic/Immunologic: no urticaria, no allergic rhinitis, no persistent infections Exam - Constitutional General appearance: Present: mild distress, obese - EENT Eyes: Present: PERRL ENT: hearing intact, clear oral mucosa - Neck Neck: Present: supple, normal ROM - Respiratory Respiratory effort: normal Respiratory: bilateral: CTA - Cardiovascular Heart Sounds: Present: S1 & S2. Absent: rub, click - Extremities Extremities: pulses symmetrical, No edema Peripheral Pulses: within normal limits - Abdominal General gastrointestinal: Present: soft, non-tender, non-distended, normal bowel sounds Female genitourinary: Present: normal - Integumentary Integumentary: Present: clear, warm, dry - Musculoskeletal Musculoskeletal: left sided weakness - Psychiatric Psychiatric: appropriate mood/affect, intact judgment & insight - Neurologic Neurologic: CNII-XII intact, focal deficits, no moves all extremities, no gait normal HEART Score - HEART Score Troponin: Troponin T < 0.010 ng/mL (0.00-0.029) 04/03/21 12:30 Results - Labs CBC & Chem 7: 04/03/21 12:30 04/03/21 12:30 Labs: Abnormal lab results 04/03/21 04/03/21 Range/Units 12:30 12:30 WBC 12.8 H (4.5-11.0) K/mm3 RBC 5.41 H (3.65-5.03) M/mm3 Hgb 17.4 H (10.1-14.3) gm/dl Hct 52.8 H (30.3-42.9) % MCV 98 H (79-97) fl Lymph % (Auto) 11.6 L (13.4-35.0) % Seg Neutrophils % 85.6 H (40.0-70.0) % Seg Neutrophils # 11.0 H (1.8-7.7) K/mm3 Sodium 136 L (137-145) mmol/L Carbon Dioxide 15 L (22-30) mmol/L Glucose 294 H (65-100) mg/dL Total Creatine Kinase 504 H (30-135) units/L Total Protein 8.3 H (6.3-8.2) g/dL Albumin 3.7 L (3.9-5) g/dL Assessment and Plan - Patient Problems (1) Acute CVA (cerebrovascular accident) Current Visit: Yes Status: Acute Plan to address problem: CVA protocol: CT head, CTA head, CTA neck, dual antiplatelet therapy, lipid panel, statin therapy, physical therapy consulted, Occupational Therapy consu lted, speech therapy consulted, telemetry neurology consulted in ED. Supportive care, risk factor reduction. (2) Nicotine dependence Current Visit: Yes Status: Acute Qualifiers: Nicotine product type: cigarettes Substance use status: in withdrawal Qualified Code(s): F17.213 - Nicotine dependence, cigarettes, with withdrawal Plan to address problem: Smoking cessation counseling, supportive care. (3) Dysarthria due to acute cerebrovascular accident (CVA) Current Visit: Yes Status: Acute Plan to address problem: Speech therapy consulted, supportive care, (4) DVT prophylaxis Current Visit: No Status: Acute Plan to address problem: SCDs bilateral lower extremities while in bed, (5) Advance care planning Current Visit: Yes Status: Acute Plan to address problem: Disease education conducted, care plan discussed, diagnosis discussed, patient is full code, prognosis discussed, patient family knowledges understanding and agreement with care plan, +30 minutes,
[2021-04-03] MEDS ORDERED: PROMETHAZINE 25 MG RECT SUPP PR PRN (14:03)
[2021-04-03] MEDS ORDERED: METOCLOPRAMIDE 10 MG TAB PO PRN (14:03)
[2021-04-03] MEDS ORDERED: ONDANSETRON 4 MG/2 ML INJ IV PRN (14:03)
[2021-04-03] MEDS ORDERED: MAGNESIUM HYDROXIDE (MOM) ORAL LIQD UDC PO PRN (14:03)
[2021-04-03] MEDS ORDERED: ACETAMINOPHEN 325 MG TAB PO PRN (14:03)
[2021-04-03] MEDS ORDERED: NON-FORMULARY EACH (Baclofen [Baclofen] 20 MG Tablet) PO PRN (14:05)
[2021-04-03] MEDS ORDERED: traMADol 50 MG TAB PO PRN (14:27)
[2021-04-03] MEDS ORDERED: BACLOFEN 10 MG TAB PO PRN (14:28)
[2021-04-03 14:47] LABS: INR 1.05 (0.87-1.13)
[2021-04-03 14:48] LABS: Partial Thromboplastin Time 25.2 Sec. (24.2-36.6); Thrombin Time 21.2 Sec. (15.1-19.6)
[2021-04-03] MEDS: GABAPENTIN 300 MG CAP PO SCH (22:18)
[2021-04-03] MEDS: FAMOTIDINE 20 MG TAB PO SCH (22:18)
[2021-04-03] MEDS ORDERED: hydrALAZINE 20 MG/1 ML INJ IV PRN (22:21)
[2021-04-04] MEDS: GABAPENTIN 300 MG CAP PO SCH ×3 (05:25→22:45)
[2021-04-04 06:23] LABS: Chol/HDL Ratio 3.57 %; HDL Cholesterol 54 mg/dL (40-59); LDL Cholesterol,Direct 119 mg/dL (50-130)
--- NOTE | 2021-04-04 08:36 | Consultation ---
History of Present Illness Consult date: 04/04/21 Reason for Consult: left side weakness History of present illness: She had a stroke History of present illness: 65 YO Female with CVA on DAPT, HTN, DM, Diastolic CHF, GERD, Nicotine Dependence presents to ED for evaluation. Pt is able to provide some of the history according to her she lives with her daughter she is complaing of lumber pain and could not use walker for ambulation -- she is discharged from hospital few days back was in hospital at 03/14 with diagnosis of recent CVA and left side weakness. Patient history provided by EMS staff, ED staff, as well as the patient's family. As per family the patient was in her usual state of health yesterday and developed since left-sided weakness around 2100 hrs. Patient went to bed and awakened from sleep with persistent symptoms. EMS was notified and upon ar rival of the patient was found to have a worsing of left side weakness !!! A code stroke was called and the patient was transported to [facility] for further care and evaluation . The patient was seen and evaluated in the emergency department. Teleneurology team consulted in ED. Patient deemed to be outside therapeutic window for TPA. The patient was placed in observation status and admitted to telemetry and initiated on CVA protocol. No reports of fever, chills, chest pain, palpitation, productive cough, skin rash, recent ill contacts, or known exposure to COVID-19. Prior admission on 03/13/2021 reviewed. All medication listed at time of admission has been reconciled. Advanced care planning conducted in ED. Past History Past Medical History: diabetes, heart failure, hypertension, stroke 03/13/2021 Past Surgical History: No surgical history, Other (Reviewed) she is s/p colostomy left side abdomen Social history: single, smoking. denies: alcohol abuse, prescription drug abuse Family history: diabetes, hypertension Medications and Allergies Allergies Allergy/AdvReac Type Severity Reaction Status Date / Time Penicillins Allergy Swelling Verified 01/08/16 07:21 Home Medications Medication Instructions Recorded Confirmed Last Taken Type Gabapentin 600 mg PO Q8HR 07/19/19 03/14/21 Unknown History Famotidine [Pepcid] 20 mg PO BID #60 tablet 07/23/19 03/14/21 Unknown Rx Nicotine [Habitrol] 14 mg TD QDAY #30 patch 07/23/19 03/14/21 Unknown Rx Aspirin 325 mg PO QDAY #30 tablet 03/15/21 Unknown Rx AtorvaSTATin [Lipitor] 80 mg PO QHS #60 tablet 03/15/21 Unknown Rx Clopidogrel [Plavix] 75 mg PO QDAY #30 tablet 03/15/21 Unknown Rx Insulin NPH/Regular [NovoLIN 70/30] 36 unit SUB-Q BIDDIAB #20 ml 03/15/21 Unknown Rx Baclofen 20 mg PO Q8H PRN #24 tablet 03/29/21 Unknown Rx Ibuprofen [Motrin] 800 mg PO Q8HR PRN #30 tablet 03/29/21 Unknown Rx traMADoL [Ultram] 50 mg PO Q6HR PRN #12 tablet 03/29/21 Unknown Rx Review of Systems Constitutional: weakness, no fever, no chills, no sweats Ears, nose, mouth and throat: no ear pain, no ear discharge, no decreased hearing Cardiovascular: no chest pain, no orthopnea, no rapid/irregular heart beat, no edema Respiratory: no cough, no excessive sputum, no shortness of breath Gastrointestinal: no nausea, no vomiting, no constipation Genitourinary Female: no pelvic pain, no flank pain, no dysuria, no urinary frequency, no urgency Rectal: no pain, no incontinence, no bleeding Musculoskeletal: no neck stiffness, no neck pain, no arm numbness/tingling, no leg numbness/tingling Integumentary: no rash, no pruritis, no redness, no wounds, no jaundice Neurological: weakness, ataxia, lack of coordination, change in speech, gait dysfunction, motor disturbance, no numbness, no seizures Psychiatric: no anxiety, no memory loss, no sleep disturbances, no insomnia, no hypersomnia, no change in appetite Endocrine: no cold intolerance, no heat intolerance, no polyphagia, no excessive thirst, no polyuria Hematologic/Lymphatic: no easy bruising, no easy bleeding, no lymphedema Allergic/Immunologic: no urticaria, no allergic rhinitis, no persistent infections Past History Past Medical History: diabetes, heart failure, hypertension, stroke Past Surgical History: Other (Reviewed) Social history: single, smoking. denies: alcohol abuse, prescription drug abuse Family history: diabetes, hypertension Medications and Allergies Allergies Allergy/AdvReac Type Severity Reaction Status Date / Time Penicillins Allergy Swelling Verified 01/08/16 07:21 Home Medications Medication Instructions Recorded Confirmed Last Taken Type Gabapentin 600 mg PO Q8HR 07/19/19 03/14/21 Unknown History Famotidine [Pepcid] 20 mg PO BID #60 tablet 07/23/19 03/14/21 Unknown Rx Nicotine [Habitrol] 14 mg TD QDAY #30 patch 07/23/19 03/14/21 Unknown Rx Aspirin 325 mg PO QDAY #30 tablet 03/15/21 Unknown Rx AtorvaSTATin [Lipitor] 80 mg PO QHS #60 tablet 03/15/21 Unknown Rx Clopidogrel [Plavix] 75 mg PO QDAY #30 tablet 03/15/21 Unknown Rx Insulin NPH/Regular [NovoLIN 70/30] 36 unit SUB-Q BIDDIAB #20 ml 03/15/21 Unknown Rx Baclofen 20 mg PO Q8H PRN #24 tablet 03/29/21 Unknown Rx Ibuprofen [Motrin] 800 mg PO Q8HR PRN #30 tablet 03/29/21 Unknown Rx traMADoL [Ultram] 50 mg PO Q6HR PRN #12 tablet 03/29/21 Unknown Rx Active Meds: Active Medications Acetaminophen (Acetaminophen 325 Mg Tab) 650 mg PO Q4H PRN PRN Reason: Pain, Mild (1-3) Aspirin (Aspirin 325 Mg Tab) 325 mg PO QDAY [facility] Atorvastatin Calcium (Atorvastatin 40 Mg Tab) 80 mg PO QHS [facility] Last Admin: 04/03/21 22:18 Dose: Not Given Documented by: Baclofen (Baclofen 10 Mg Tab) 20 mg PO Q8H PRN PRN Reason: Muscle Spasm Bisacodyl (Bisacodyl 10 Mg Rect Supp) 10 mg AL QDAY PRN PRN Reason: Constipation Clopidogrel Bisulfate (Clopidogrel 75 Mg Tab) 75 mg PO QDAY [facility] Famotidine (Famotidine 20 Mg Tab) 20 mg PO BID [facility] Last Admin: 04/03/21 22:18 Dose: Not Given Documented by: Gabapentin (Gabapentin 300 Mg Cap) 600 mg PO Q8HR [facility] Last Admin: 04/04/21 05:25 Dose: 600 mg Documented by: Hydralazine HCl (Hydralazine 20 Mg/1 Ml Inj) 5 mg IV Q4HR PRN PRN Reason: Hypertension Last Admin: 04/03/21 22:51 Dose: 5 mg Documented by: Ibuprofen (Ibuprofen 800 Mg Tab) 800 mg PO Q8HR PRN PRN Reason: Pain , Severe (7-10) Insulin Human Regular (Insulin Regular, Human 100 Units/1 Ml) 6 units SUB-Q ONCE ONE Stop: 04/04/21 08:32 Magnesium Hydroxide (Magnesium Hydroxide (Mom) Oral Liqd Udc) 30 ml PO Q4H PRN PRN Reason: Constipation Metoclopramide HCl (Metoclopramide 10 Mg Tab) 10 mg PO Q6H PRN PRN Reason: Nausea And Vomiting Nicotine (Nicotine 14 Mg/24 Hr Patch) 14 mg TD QDAY BAUTISTA Ondansetron HCl (Ondansetron 4 Mg/2 Ml Inj) 4 mg IV Q8H PRN PRN Reason: Nausea And Vomiting Promethazine HCl (Promethazine 25 Mg Rect Supp) 25 mg AL Q6H PRN PRN Reason: Nausea And Vomiting Sodium Chloride (Sodium Chloride 0.9% 10 Ml Flush Syringe) 10 ml IV PRN PRN PRN Reason: LINE FLUSH Tramadol HCl (Tramadol 50 Mg Tab) 50 mg PO Q6H PRN PRN Reason: Pain, Moderate (4-6) Physical Examination - Vital Signs Vital Signs: Vital Signs Pulse Resp BP Pulse Ox 104 H 19 174/103 97 04/03/21 14:01 04/03/21 14:01 04/03/21 14:01 04/03/21 14:01 - Constitutional General appearance: comfortable, other (alert interactive she is with no aphasia follow command oriented to place not date , recall her birthdate and addres , does not knows president name ) - EENT EENT: Present: PERRL, mucous membranes moist - Respiratory Respiratory: Present: lungs clear, rhonchi, stridor - Cardiovascular Cardiovascular: Present: regular rate, normal S1, normal S2 Extremities: Present: no peripheral edema bilatateraly, no clubbing, cyanosis - Gastrointestinal Gastrointestinal: Present: normoactive bowel sounds, other (had Colostomy bag ) - Integumentary Integumentary: Present: normal - Neurologic Cranial nerve examination: PERRL, EOMI, other (left facial droop difficult to assess visual field) Speech examination: intact Sensorimotor examination: intact Results - Laboratory Findings CBC and BMP: 04/03/21 12:30 04/04/21 05:14 Abnormal Lab Findings: Abnormal Labs 04/03/21 04/03/21 04/03/21 12:30 12:30 14:18 WBC 12.8 H RBC 5.41 H Hgb 17.4 H Hct 52.8 H MCV 98 H Lymph % (Auto) 11.6 L Seg Neutrophils % 85.6 H Seg Neutrophils # 11.0 H Thrombin Time 21.2 H Sodium 136 L Carbon Dioxide 15 L Glucose 294 H POC Glucose Total Creatine Kinase 504 H Total Protein 8.3 H Albumin 3.7 L 04/03/21 17:02 WBC RBC Hgb Hct MCV Lymph % (Auto) Seg Neutrophils % Seg Neutrophils # Thrombin Time Sodium Carbon Dioxide Glucose POC Glucose 283 H Total Creatine Kinase Total Protein Albumin Assessment and Plan Assessment and Plan - Patient Problems #Possible Acute CVA Vs worsening of existing CVA -CT brain is remarkable for right MCA infarct with possible recent ? 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 #Lumber pain -According to pt. she is having back pain contributing to her weakness -MRI lumber pending # Colostomy pag # Colostomy pag - with abdominal swelling -CT abd and pelvic #memory difficulty with the possibility of underlying dementia -problem mostly to recent memory -No known base line memory # DVT prophylaxis SCDs bilateral lower extremities while in bed, # Advance care planning Disease education conducted, care plan discussed, diagnosis discussed, patient is full code, prognosis discussed, Will follow
[2021-04-04] MEDS: CLOPIDOGREL 75 MG TAB PO SCH (09:00)
[2021-04-04] MEDS: FAMOTIDINE 20 MG TAB PO SCH ×2 (09:00→22:45)
[2021-04-04] MEDS: ASPIRIN 325 MG TAB PO SCH (09:00)
[2021-04-04] MEDS: NICOTINE 14 MG/24 HR PATCH TD SCH (09:00)
[2021-04-04] MEDS ORDERED: INSULIN REGULAR, HUMAN 100 UNITS/1 ML SUB-Q SCH (09:00)
--- NOTE | 2021-04-04 09:12 | Progress Note ---
Assessment and Plan Assessment and plan: #Acute CVA Versus worsening CVA Continue aspirin and Plavix Statins MRI brain with and without contrast ordered-pending CTA head and neck-shows 75% stenosis of the right ICA carotid cavernous area Echocardiogram with bubble study Neurology evaluation appreciated Telemetry monitoring to rule atrial fibrillation Physical therapy #Complains of back pain MRI lumbar ordered #Slight abdominal pain CT abdomen and pelvis ordered to reevaluate #Nicotine dependence Smoking cessation counseling rendered #History of dementia Stable #DVT prophylaxis-Heparin History Interval history: 65 YO Female with CVA on DAPT, HTN, DM, Diastolic CHF, GERD, Nicotine Dependence presents to ED for evaluation. Pt is dysarthric and able to provide history at time of evaluation. Patient history provided by EMS staff, ED staff, as well as the patient's family. As per family the patient was in her usual state of health yesterday and developed since left-sided weakness around 2100 hrs. Patient went to bed and awakened from sleep with persistent symptoms. EMS was notified and upon arrival of the patient was found to have a neurologic deficit. A code stroke was called and the patient was transported to [facility] for further care and evaluation of the aforementioned symptoms. The patient was seen and evaluated in the emergency department. All lab and imaging studies reviewed. The patient was found to have symptoms consistent with CVA. Teleneurology team consulted in ED. Patient deemed to be outside therapeutic window for TPA. The patient was placed in observation status and admitted to telemetry and initiated on CVA protocol. No reports of fever, chills, chest pain, palpitation, productive cough, skin rash, recent ill contacts, or known exposure to COVID-19. Prior admission on 03/13/2021 reviewed. All medication listed at time of admission has been reconciled. Advanced care planning conducted in ED. Here she had CTA head and neck that shows stenosis in the right ICA. CTA neck was negative for any significant stenosis. Neurology has been consulted. Hospital course 04/04. She is on aspirin and plavix. She states she has been compliant with her medications. Her speech has improved. Has some left sided weakness. Hospitalist Physical - Physical exam Narrative exam: VITAL SIGNS: Reviewed. GENERAL: Awake HEAD: No signs of head trauma. EYES: Pupils are equal. Extraocular motions intact. MOUTH: Oropharynx is normal. NECK: No adenopathy, no JVD. CHEST: Chest with diminished breath sounds bilaterally. No wheezes, rales, or rhonchi. CARDIAC: normal S1 and S2, without murmurs, gallops, or rubs. ABDOMEN: Soft, non tender and non distended. No rebound or guarding, and no masses palpated. Bowel Sounds normal. MUSCULOSKELETAL: No edema NEUROLOGIC EXAM: Alert and oriented x3. Very minimal dysarthria. Left-sided nrdsoxim-3-8/5 SKIN: No obvious lesions - Constitutional Vitals: Temp Pulse Resp BP Pulse Ox 98.0 F 108 H 18 174/93 93 04/04/21 07:25 04/04/21 07:25 04/04/21 07:25 04/04/21 07:25 04/04/21 07:25 HEART Score - HEART Score Troponin: Troponin T < 0.010 ng/mL (0.00-0.029) 04/03/21 12:30 Results - Labs CBC & Chem 7: 04/04/21 17:47 04/04/21 17:47 Labs: Laboratory Last Values WBC 12.8 K/mm3 (4.5-11.0) H 04/03/21 12:30 RBC 5.41 M/mm3 (3.65-5.03) H 04/03/21 12:30 Hgb 17.4 gm/dl (10.1-14.3) H 04/03/21 12:30 Hct 52.8 % (30.3-42.9) H 04/03/21 12:30 MCV 98 fl (79-97) H 04/03/21 12:30 MCH 32 pg (28-32) 04/03/21 12:30 MCHC 33 % (30-34) 04/03/21 12:30 RDW 14.3 % (13.2-15.2) 04/03/21 12:30 Plt Count 256 K/mm3 (140-440) 04/03/21 12:30 Lymph % (Auto) 11.6 % (13.4-35.0) L 04/03/21 12:30 Hettinger % (Auto) 2.2 % (0.0-7.3) 04/03/21 12:30 Eos % (Auto) 0.0 % (0.0-4.3) 04/03/21 12:30 Baso % (Auto) 0.6 % (0.0-1.8) 04/03/21 12:30 Lymph # (Auto) 1.5 K/mm3 (1.2-5.4) 04/03/21 12:30 Hettinger # (Auto) 0.3 K/mm3 (0.0-0.8) 04/03/21 12:30 Eos # (Auto) 0.0 K/mm3 (0.0-0.4) 04/03/21 12:30 Baso # (Auto) 0.1 K/mm3 (0.0-0.1) 04/03/21 12:30 Seg Neutrophils % 85.6 % (40.0-70.0) H 04/03/21 12:30 Seg Neutrophils # 11.0 K/mm3 (1.8-7.7) H 04/03/21 12:30 PT 13.5 Sec. (12.2-14.9) 04/03/21 14:18 INR 1.05 (0.87-1.13) 04/03/21 14:18 APTT 25.2 Sec. (24.2-36.6) 04/03/21 14:18 Thrombin Time 21.2 Sec. (15.1-19.6) H 04/03/21 14:18 Sodium 136 mmol/L (137-145) L 04/03/21 12:30 Potassium 4.1 mmol/L (3.6-5.0) 04/03/21 12:30 Chloride 98.4 mmol/L (98-107) 04/03/21 12:30 Carbon Dioxide 15 mmol/L (22-30) L 04/03/21 12:30 Anion Gap 27 mmol/L 04/03/21 12:30 BUN 14 mg/dL (7-17) 04/03/21 12:30 Creatinine 0.8 mg/dL (0.6-1.2) 04/04/21 05:14 Estimated GFR > 60 ml/min 04/04/21 05:14 BUN/Creatinine Ratio 20 % 04/03/21 12:30 Glucose 294 mg/dL (65-100) H 04/03/21 12:30 POC Glucose 283 mg/dL (70-105) H 04/03/21 17:02 Calcium 9.2 mg/dL (8.4-10.2) 04/03/21 12:30 Total Bilirubin 0.40 mg/dL (0.1-1.2) 04/03/21 12:30 Direct Bilirubin < 0.2 mg/dL (0-0.2) 04/03/21 12:30 Indirect Bilirubin 0.2 mg/dL 04/03/21 12:30 AST 27 units/L (5-40) 04/03/21 12:30 ALT 21 units/L (7-56) 04/03/21 12:30 Alkaline Phosphatase 115 units/L (35-129) 04/03/21 12:30 Total Creatine Kinase 504 units/L (30-135) H 04/03/21 12:30 CK-MB (CK-2) 3.8 ng/mL (0.0-4.0) 04/03/21 12:30 CK-MB (CK-2) Rel Index 0.7 (0-4) 04/03/21 12:30 Troponin T < 0.010 ng/mL (0.00-0.029) 04/03/21 12:30 Total Protein 8.3 g/dL (6.3-8.2) H 04/03/21 12:30 Albumin 3.7 g/dL (3.9-5) L 04/03/21 12:30 Albumin/Globulin Ratio 0.8 % 04/03/21 12:30 Triglycerides 145 mg/dL (2-149) 04/04/21 05:14 Cholesterol 193 mg/dL (50-199) 04/04/21 05:14 LDL Cholesterol Direct 119 mg/dL (50-130) 04/04/21 05:14 HDL Cholesterol 54 mg/dL (40-59) 04/04/21 05:14 Cholesterol/HDL Ratio 3.57 % 04/04/21 05:14 Enriquez/IV: Voiding Method External Female Catheter Active Medications - Current Medications Current Medications: Generic Name Dose Route Start Last Admin Trade Name Freq PRN Reason Stop Dose Admin Acetaminophen 650 mg 04/03/21 14:03 Acetaminophen 325 Mg Tab PO Q4H PRN Pain, Mild (1-3) Aspirin 325 mg 04/04/21 10:00 04/04/21 09:00 Aspirin 325 Mg Tab PO 325 mg QDAY BAUTISTA Administration Atorvastatin Calcium 80 mg 04/03/21 22:00 04/03/21 22:18 Atorvastatin 40 Mg Tab PO Not Given QHS BAUTISTA Baclofen 20 mg 04/03/21 14:28 Baclofen 10 Mg Tab PO Q8H PRN Muscle Spasm Bisacodyl 10 mg 04/03/21 14:03 Bisacodyl 10 Mg Rect Supp AR QDAY PRN Constipation Clopidogrel Bisulfate 75 mg 04/04/21 10:00 04/04/21 09:00 Clopidogrel 75 Mg Tab PO 75 mg QDAY BAUTISTA Administration Famotidine 20 mg 04/03/21 22:00 04/04/21 09:00 Famotidine 20 Mg Tab PO 20 mg BID BAUTISTA Administration Gabapentin 600 mg 04/03/21 22:00 04/04/21 05:25 Gabapentin 300 Mg Cap PO 600 mg Q8HR BAUTISTA Administration Hydralazine HCl 5 mg 04/03/21 22:21 04/03/21 22:51 Hydralazine 20 Mg/1 Ml Inj IV 5 mg Q4HR PRN Administration Hypertension Ibuprofen 800 mg 04/03/21 14:05 Ibuprofen 800 Mg Tab PO Q8HR PRN Pain , Severe (7-10) Insulin Human Regular 6 units 04/04/21 09:00 04/04/21 09:00 Insulin Regular, Human 100 Units/1 Ml SUB-Q 04/04/21 12:00 6 units ONCE [facility] Administration Magnesium Hydroxide 30 ml 04/03/21 14:03 Magnesium Hydroxide (Mom) Oral Liqd Udc PO Q4H PRN Constipation Metoclopramide HCl 10 mg 04/03/21 14:03 Metoclopramide 10 Mg Tab PO Q6H PRN Nausea And Vomiting Nicotine 14 mg 04/04/21 10:00 04/04/21 09:00 Nicotine 14 Mg/24 Hr Patch TD 14 mg QDAY BAUTISTA Administration Ondansetron HCl 4 mg 04/03/21 14:03 Ondansetron 4 Mg/2 Ml Inj IV Q8H PRN Nausea And Vomiting Promethazine HCl 25 mg 04/03/21 14:03 Promethazine 25 Mg Rect Supp AR Q6H PRN Nausea And Vomiting Sodium Chloride 10 ml 04/03/21 14:03 Sodium Chloride 0.9% 10 Ml Flush Syringe IV PRN PRN LINE FLUSH Tramadol HCl 50 mg 04/03/21 14:27 Tramadol 50 Mg Tab PO Q6H PRN Pain, Moderate (4-6)
--- NOTE | 2021-04-04 14:43 | Electrocardiograph Report ---
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
--- NOTE | 2021-04-04 15:16 | Magnetic Resonance Report ---
MRI BRAIN WITHOUT CONTRAST INDICATION / CLINICAL INFORMATION: Acute CVA. Right sided weakness TECHNIQUE: Multiplanar, multisequence MR images of the brain were obtained. COMPARISON: Head CT on 04/03/2021 and 03/14/2021. Brain MRI on 03/14/2021. FINDINGS: BRAIN / INTRACRANIAL CONTENTS: There is expected maturation in the previously identified infarct in t he right lockhart radiata extending toward the right insular cortex. There is no new acute infarct. The re is stable chronic insults malacia in the right middle frontal gyrus and right basal ganglia from a more remote prior infarct. There is no hemorrhage or adverse mass effect. There is stable mild chron ic small vessel schema change in the cerebral white matter. CRANIOCERVICAL JUNCTION: No significant abnormality. VASCULAR FLOW-VOIDS: No significant abnormality. ORBITS: No significant abnormality of visualized orbits. SINUSES / MASTOIDS: No significant abnormality of visualized sinuses and mastoid air cells. ADDITIONAL FINDINGS: None. IMPRESSION: 1. Expected maturation of previously identified infarct in the right lockhart radiata extending toward the right insular cortex. No new infarct, hemorrhage, or adverse mass effect. Signer Name: Rasheed Mcmanus MD Signed: 04/04/2021 3:11 PM Workstation Name: [id number]
--- NOTE | 2021-04-04 16:49 | Cat Scan Report ---
CT ABDOMEN PELVIS WITHOUT CONTRAST INDICATION / CLINICAL INFORMATION: Evaluate abdominal swelling.. TECHNIQUE: Axial CT images were obtained through the abdomen and pelvis without IV contrast. All CT scans at [facility] location are performed using CT dose reduction for ALARA by means of automated exposure control. COMPARISON: None available. FINDINGS: LOWER CHEST: No significant abnormality. LIVER: No significant abnormality. GALLBLADDER: Cholelithiasis. BILE DUCTS: No significant abnormality. PANCREAS: No significant abnormality. SPLEEN: No significant abnormality. ADRENALS: No significant abnormality. RIGHT KIDNEY and URETER: No significant abnormality. LEFT KIDNEY and URETER: No significant abnormality. STOMACH and SMALL BOWEL: No significant abnormality. COLON: No significant abnormality. APPENDIX: No significant abnormality. PERITONEUM: Lateral abdominal wall defect with herniation of gastrointestinal contents No free fluid. No free air. No fluid collection. LYMPH NODES: No significant adenopathy. AORTA and ARTERIES: Atherosclerotic calcified plaques in the aorta is major branches IVC and VEINS: No significant abnormality. URINARY BLADDER: No significant abnormality. REPRODUCTIVE ORGANS: Several uterine fibroids largest measuring 5 cm ADDITIONAL FINDINGS: None. SKELETAL SYSTEM: No significant abnormality. IMPRESSION: 1. Large ventral wall defect lower left abdomen 2. Cholelithiasis 3. Uterine fibroids Signer Name: Porfirio Nelson MD Signed: 04/04/2021 4:45 PM Workstation Name: [id number]
--- NOTE | 2021-04-04 17:31 | Magnetic Resonance Report ---
MR lumbar spine wo con INDICATION / CLINICAL INFORMATION: 65 years Female; back pain. TECHNIQUE: Multisequence, multiplanar images of the lumbar spine were obtained. COMPARISON: None available. FINDINGS: ALIGNMENT: There is minimal anterolisthesis at L4-5 with disc desiccation. There is no significant sc oliosis. VERTEBRAE:There are multilevel endplate changes with slight edema on the left at L5-S1. There are als o small Schmorl's nodes along the superior endplates of T12 and L3 with slight edema. VISUALIZED SPINAL CORD: No significant abnormality. [id number] ANALYSIS: L1-2: The motion degrades image quality on the axial sequences. However, the disc bulge mildly flatte ns the ventral thecal sac. The neural foramen are patent. L2-3: The broad-based disc bulge mildly deforms the ventral thecal sac. There is slight neural forami nal narrowing bilaterally. L3-4: The broad-based disc bulge and facet joint hypertrophy result in moderate to marked spinal sten osis at. The bulges greater on the right with effacement of the right lateral recess and mild to mode rate right foraminal narrowing. Mild narrowing is seen on the left. L4-5: There is milder spinal stenosis related to the disc bulge and moderate facet joint hypertrophy. There is also mild neural foraminal narrowing bilaterally. L5-S1: There is mild right-sided disc bulge which slightly encroaches on the right lateral recess. Ad ditionally, this finding extends into the right neural foramen with mild foraminal narrowing. PARASPINAL SOFT TISSUES: No significant abnormality. ADDITIONAL FINDINGS: No epidural collections are identified. IMPRESSION: 1. There are multilevel degenerative the changes and disc bulges involving lumbar spine as detailed a dustin. 2. The degenerative changes at L3-4 appear to result in moderate to marked spinal stenosis with effac ement of the right lateral recess. Additionally, there is mild to moderate right neural foraminal justin rowing. Signer Name: David Palmer MD Signed: 04/04/2021 5:26 PM Workstation Name: [id number]
[2021-04-04] MEDS ORDERED: METOPROLOL TARTRATE 5 MG/5 ML INJ IV ONE (17:33)
[2021-04-04 18:19] LABS: Basophils % (Auto) 0.3 % (0.0-1.8); Eosinophils % (Auto) 0.1 % (0.0-4.3); Hematocrit 50.7 % (30.3-42.9); Hemoglobin 16.6 gm/dl (10.1-14.3); Lymphocytes # (Auto) 2.8 K/mm3 (1.2-5.4); Lymphocytes % (Auto) 23.6 % (13.4-35.0); Mean Corpuscular HGB Conc 33 % (30-34); Mean Corpuscular Volume 98 fl (79-97); Monocytes # (Auto) 1.1 K/mm3 (0.0-0.8); Monocytes % (Auto) 9.3 % (0.0-7.3); Platelet Count 272 K/mm3 (140-440); Red Blood Count 5.19 M/mm3 (3.65-5.03); Red Cell Distribution Width 14.4 % (13.2-15.2)
[2021-04-04 18:42] LABS: Alanine Aminotransferase 18 units/L (7-56); Albumin 3.7 g/dL (3.9-5); Blood Urea Nitrogen 19 mg/dL (7-17); Calcium 8.8 mg/dL (8.4-10.2); Hemolysis Index 8
[2021-04-04 18:43] LABS: BUN/Creatinine Ratio 27
[2021-04-04] MEDS ORDERED: traZODone 50 MG TAB PO PRN (23:14)
[2021-04-05] MEDS: GABAPENTIN 300 MG CAP PO SCH ×3 (05:11→22:15)
[2021-04-05 11:10] LABS: Basophils # (Auto) 0.1 K/mm3 (0.0-0.1); Basophils % (Auto) 0.5 % (0.0-1.8); Eosinophils % (Auto) 0.4 % (0.0-4.3); Hematocrit 50.3 % (30.3-42.9); Hemoglobin 16.2 gm/dl (10.1-14.3); Lymphocytes # (Auto) 3.5 K/mm3 (1.2-5.4); Lymphocytes % (Auto) 35.5 % (13.4-35.0); Mean Corpuscular HGB Conc 32 % (30-34); Mean Corpuscular Volume 97 fl (79-97); Monocytes # (Auto) 0.9 K/mm3 (0.0-0.8); Monocytes % (Auto) 9.1 % (0.0-7.3); Platelet Count 265 K/mm3 (140-440); Red Blood Count 5.17 M/mm3 (3.65-5.03); Red Cell Distribution Width 14.4 % (13.2-15.2)
[2021-04-05] MEDS: CLOPIDOGREL 75 MG TAB PO SCH (11:26)
[2021-04-05] MEDS: ASPIRIN 325 MG TAB PO SCH (11:26)
[2021-04-05] MEDS: FAMOTIDINE 20 MG TAB PO SCH ×2 (11:26→22:15)
[2021-04-05] MEDS: NICOTINE 14 MG/24 HR PATCH TD SCH (11:26)
[2021-04-05] MEDS: ENOXAPARIN 40 MG/0.4 ML INJ SUB-Q SCH (11:44)
[2021-04-05] MEDS: IBUPROFEN 800 MG TAB PO PRN ×2 (11:44→22:25)
[2021-04-05 12:24] LABS: Alanine Aminotransferase 17 units/L (7-56); Albumin 3.2 g/dL (3.9-5); BUN/Creatinine Ratio 31; Blood Urea Nitrogen 22 mg/dL (7-17); Calcium 8.8 mg/dL (8.4-10.2); Hemolysis Index 32
--- NOTE | 2021-04-05 12:46 | Progress Note ---
Assessment and Plan Assessment and Plan - Patient Problems #NO Acute CVA -CT brain is remarkable for right MCA infarct with -MRI brain is remarkable for the preexisting CVA subacute -she is on ASA and Plavix plus lipitor -CTA brain and neck is remarkable for 70% stenosis in Bilateral cavernous ICA - review Echo done last admission -pt /st evaluate -cardiac monitoring R/O AF # Nicotine dependence -Smoking cessation counseling, supportive care. #Lumber pain -According to pt. she is having back pain contributing to her weakness -MRI lumber degenerative disc disease -Positive for decubitus ulcer add to her pain # Colostomy pag - with abdominal swelling -CT abd and pelvic is noted #memory difficulty with the possibility of underlying dementia -problem mostly to recent memory -No known base line memory # DVT prophylaxis SCDs bilateral lower extremities while in bed, # Advance care planning Disease education conducted, care plan discussed, diagnosis discussed, patient is full code, prognosis discussed, PLAN 1-mainatinASA plus PLAVIX 75 mg X3 months then Plavix 2- Lipitor 3- managmant of decubitus ulcer '4- mainatin neurontine 5- follow up with orthopedic 6-managment of colostomy tube 7- neurology follow up for CVA, dementia in 2-3 months 8- Pt therapy will sign off Subjective Date of service: 04/05/21 Principal diagnosis: weakness Interval history: she was able to walk today with walker still complaining of lumber pain as well as sorness in her buttock due to breakdown of skin !!! Objective - Vital Sign Vital Signs - 12hr 04/05/21 04/05/21 04/05/21 05:00 05:26 07:42 Temperature 97.2 F L 97.7 F 97.9 F Pulse Rate 91 H 91 H 100 H Respiratory 18 18 20 Rate Blood Pressure 109/67 Blood Pressure 150/75 [Left] O2 Sat by Pulse 95 95 100 Oximetry 04/05/21 11:36 Temperature 98.0 F Pulse Rate 119 H Respiratory 20 Rate Blood Pressure 124/72 Blood Pressure [Left] O2 Sat by Pulse 96 Oximetry - General Apperance Constitutional: comfortable - EENT EENT: PERRL, mucous membranes moist - Respiratory Respiratory: chest non-tender, lungs clear - Cardiovascular Cardiovascular: regular rate, normal S1, normal S2 Extremities: no peripheral edema bilat - Gastrointestinal Gastrointestinal: normoactive bowel sounds, other (colostomy tube) - Integumentary Integumentary: decubitus ulcer - Neurologic Cranial nerve examination: PERRL, EOMI, other (left facial droop) Detailed motor examination: other (left side upper3+/5 loer4-/5 ) - Laboratory Findings CBC and BMP: 04/05/21 09:52 04/05/21 09:52 Abnormal Lab Findings: Abnormal Labs 04/03/21 04/03/21 04/03/21 12:30 12:30 14:18 WBC 12.8 H RBC 5.41 H Hgb 17.4 H Hct 52.8 H MCV 98 H Lymph % (Auto) 11.6 L Cherry % (Auto) Cherry # (Auto) Seg Neutrophils % 85.6 H Seg Neutrophils # 11.0 H Thrombin Time 21.2 H Sodium 136 L Potassium Carbon Dioxide 15 L BUN Glucose 294 H POC Glucose Total Creatine Kinase 504 H Total Protein 8.3 H Albumin 3.7 L 04/03/21 04/04/21 04/04/21 17:02 07:23 12:16 WBC RBC Hgb Hct MCV Lymph % (Auto) Cherry % (Auto) Cherry # (Auto) Seg Neutrophils % Seg Neutrophils # Thrombin Time Sodium Potassium Carbon Dioxide BUN Glucose POC Glucose 283 H 337 H 209 H Total Creatine Kinase Total Protein Albumin 04/04/21 04/04/21 04/04/21 16:10 17:47 17:47 WBC 11.9 H RBC 5.19 H Hgb 16.6 H Hct 50.7 H MCV 98 H Lymph % (Auto) Cherry % (Auto) 9.3 H Cherry # (Auto) 1.1 H Seg Neutrophils % Seg Neutrophils # 8.0 H Thrombin Time Sodium Potassium 3.3 L Carbon Dioxide BUN 19 H Glucose 198 H POC Glucose 196 H Total Creatine Kinase Total Protein Albumin 3.7 L 04/04/21 04/05/21 04/05/21 20:55 07:39 09:52 WBC RBC Hgb Hct MCV Lymph % (Auto) Cherry % (Auto) Cherry # (Auto) Seg Neutrophils % Seg Neutrophils # Thrombin Time Sodium Potassium 3.4 L Carbon Dioxide BUN 22 H Glucose 218 H POC Glucose 239 H 245 H Total Creatine Kinase Total Protein Albumin 3.2 L 04/05/21 09:52 WBC RBC 5.17 H Hgb 16.2 H Hct 50.3 H MCV Lymph % (Auto) 35.5 H Cherry % (Auto) 9.1 H Cherry # (Auto) 0.9 H Seg Neutrophils % Seg Neutrophils # Thrombin Time Sodium Potassium Carbon Dioxide BUN Glucose POC Glucose Total Creatine Kinase Total Protein Albumin
--- NOTE | 2021-04-05 13:17 | Progress Note ---
Assessment and Plan Assessment and plan: #TIA Continue aspirin and Plavix Statins MRI brain with and without contrast ordered-pending CTA head and neck-shows 75% stenosis of the right ICA carotid cavernous area Echocardiogram with bubble study Neurology evaluation appreciated Telemetry monitoring to rule atrial fibrillation Physical therapy - pending #Complains of back pain MRI lumbar ordered #Slight abdominal pain CT abdomen and pelvis ordered to reevaluate - largia hiatal hernia. No obstruction or strangulation #Nicotine dependence Smoking cessation counseling rendered #History of dementia Stable #DVT prophylaxis-Heparin #Disposition - PT pending. May need placement. History Interval history: 65 YO Female with CVA on DAPT, HTN, DM, Diastolic CHF, GERD, Nicotine Dependence presents to ED for evaluation. Pt is dysarthric and able to provide history at time of evaluation. Patient history provided by EMS staff, ED staff, as well as the patient's family. As per family the patient was in her usual state of health yesterday and developed since left-sided weakness around 2100 hrs. Patient went to bed and awakened from sleep with persistent symptoms. EMS was notified and upon arrival of the patient was found to have a neurologic deficit. A code stroke was called and the patient was transported to [facility] for further care and evaluation of the aforementioned symptoms. The patient was seen and evaluated in the emergency department. All lab and imaging studies reviewed. The patient was found to have symptoms consistent with CVA. Teleneurology team consulted in ED. Patient deemed to be outside therapeutic window for TPA. The patient was placed in observation status and admitted to telemetry and initiated on CVA protocol. No reports of fever, chills, chest pain, palpitation, productive cough, skin rash, recent ill contacts, or known exposure to COVID-19. Prior admission on 03/13/2021 reviewed. All medication listed at time of admission has been reconciled. Advanced care planning conducted in ED. Here she had CTA head and neck that shows stenosis in the right ICA. CTA neck was negative for any significant stenosis. Neurology has been consulted. Hospital course 04/04. She is on aspirin and plavix. She states she has been compliant with her medications. Her speech has improved. Has some left sided weakness. 04/05. No change in neurological exam. Remains on dual antiplatelet therapy. Neurology following. Awaiting PT evaluation Hospitalist Physical - Constitutional Vitals: Temp Pulse Resp BP Pulse Ox 98.0 F 119 H 20 124/72 96 04/05/21 11:36 04/05/21 11:36 04/05/21 11:36 04/05/21 11:36 04/05/21 11:36 General appearance: Present: mild distress, obese HEART Score - HEART Score Troponin: Troponin T < 0.010 ng/mL (0.00-0.029) 04/03/21 12:30 Results - Labs CBC & Chem 7: 04/05/21 09:52 04/05/21 09:52 Labs: Laboratory Last Values WBC 9.7 K/mm3 (4.5-11.0) 04/05/21 09:52 RBC 5.17 M/mm3 (3.65-5.03) H 04/05/21 09:52 Hgb 16.2 gm/dl (10.1-14.3) H 04/05/21 09:52 Hct 50.3 % (30.3-42.9) H 04/05/21 09:52 MCV 97 fl (79-97) 04/05/21 09:52 MCH 31 pg (28-32) 04/05/21 09:52 MCHC 32 % (30-34) 04/05/21 09:52 RDW 14.4 % (13.2-15.2) 04/05/21 09:52 Plt Count 265 K/mm3 (140-440) 04/05/21 09:52 Lymph % (Auto) 35.5 % (13.4-35.0) H 04/05/21 09:52 [place] % (Auto) 9.1 % (0.0-7.3) H 04/05/21 09:52 Eos % (Auto) 0.4 % (0.0-4.3) 04/05/21 09:52 Baso % (Auto) 0.5 % (0.0-1.8) 04/05/21 09:52 Lymph # (Auto) 3.5 K/mm3 (1.2-5.4) 04/05/21 09:52 [place] # (Auto) 0.9 K/mm3 (0.0-0.8) H 04/05/21 09:52 Eos # (Auto) 0.0 K/mm3 (0.0-0.4) 04/05/21 09:52 Baso # (Auto) 0.1 K/mm3 (0.0-0.1) 04/05/21 09:52 Seg Neutrophils % 54.5 % (40.0-70.0) 04/05/21 09:52 Seg Neutrophils # 5.3 K/mm3 (1.8-7.7) 04/05/21 09:52 PT 13.5 Sec. (12.2-14.9) 04/03/21 14:18 INR 1.05 (0.87-1.13) 04/03/21 14:18 APTT 25.2 Sec. (24.2-36.6) 04/03/21 14:18 Thrombin Time 21.2 Sec. (15.1-19.6) H 04/03/21 14:18 Sodium 142 mmol/L (137-145) 04/05/21 09:52 Potassium 3.4 mmol/L (3.6-5.0) L 04/05/21 09:52 Chloride 100.8 mmol/L (98-107) 04/05/21 09:52 Carbon Dioxide 26 mmol/L (22-30) 04/05/21 09:52 Anion Gap 19 mmol/L 04/05/21 09:52 BUN 22 mg/dL (7-17) H 04/05/21 09:52 Creatinine 0.7 mg/dL (0.6-1.2) 04/05/21 09:52 Estimated GFR > 60 ml/min 04/05/21 09:52 BUN/Creatinine Ratio 31 % 04/05/21 09:52 Glucose 218 mg/dL (65-100) H 04/05/21 09:52 POC Glucose 245 mg/dL (70-105) H 04/05/21 07:39 Calcium 8.8 mg/dL (8.4-10.2) 04/05/21 09:52 Total Bilirubin 0.80 mg/dL (0.1-1.2) 04/05/21 09:52 Direct Bilirubin < 0.2 mg/dL (0-0.2) 04/03/21 12:30 Indirect Bilirubin 0.2 mg/dL 04/03/21 12:30 AST 24 units/L (5-40) 04/05/21 09:52 ALT 17 units/L (7-56) 04/05/21 09:52 Alkaline Phosphatase 96 units/L (35-129) 04/05/21 09:52 Total Creatine Kinase 504 units/L (30-135) H 04/03/21 12:30 CK-MB (CK-2) 3.8 ng/mL (0.0-4.0) 04/03/21 12:30 CK-MB (CK-2) Rel Index 0.7 (0-4) 04/03/21 12:30 Troponin T < 0.010 ng/mL (0.00-0.029) 04/03/21 12:30 Total Protein 6.8 g/dL (6.3-8.2) 04/05/21 09:52 Albumin 3.2 g/dL (3.9-5) L 04/05/21 09:52 Albumin/Globulin Ratio 0.9 % 04/05/21 09:52 Triglycerides 145 mg/dL (2-149) 04/04/21 05:14 Cholesterol 193 mg/dL (50-199) 04/04/21 05:14 LDL Cholesterol Direct 119 mg/dL (50-130) 04/04/21 05:14 HDL Cholesterol 54 mg/dL (40-59) 04/04/21 05:14 Cholesterol/HDL Ratio 3.57 % 04/04/21 05:14 TSH 0.755 mlU/mL (0.270-4.200) 04/04/21 17:47 Free T4 1.07 ng/dL (0.76-1.46) 04/04/21 17:47 Enriquez/IV: Voiding Method External Female Catheter Active Medications - Current Medications Current Medications: Generic Name Dose Route Start Last Admin Trade Name Freq PRN Reason Stop Dose Admin Acetaminophen 650 mg 04/03/21 14:03 Acetaminophen 325 Mg Tab PO Q4H PRN Pain, Mild (1-3) Aspirin 325 mg 04/04/21 10:00 04/05/21 11:26 Aspirin 325 Mg Tab PO 325 mg QDAY BAUTISTA Administration Atorvastatin Calcium 80 mg 04/03/21 22:00 04/04/21 22:45 Atorvastatin 40 Mg Tab PO 80 mg QHS BAUTISTA Administration Baclofen 20 mg 04/03/21 14:28 Baclofen 10 Mg Tab PO Q8H PRN Muscle Spasm Bisacodyl 10 mg 04/03/21 14:03 Bisacodyl 10 Mg Rect Supp UT QDAY PRN Constipation Clopidogrel Bisulfate 75 mg 04/04/21 10:00 04/05/21 11:26 Clopidogrel 75 Mg Tab PO 75 mg QDAY BAUTISTA Administration Enoxaparin Sodium 40 mg 04/05/21 11:00 04/05/21 11:44 Enoxaparin 40 Mg/0.4 Ml Inj SUB-Q 40 mg DAILY BAUTISTA Administration Protocol Famotidine 20 mg 04/03/21 22:00 04/05/21 11:26 Famotidine 20 Mg Tab PO 20 mg BID BAUTISTA Administration Gabapentin 600 mg 04/03/21 22:00 04/05/21 05:11 Gabapentin 300 Mg Cap PO 600 mg Q8HR BAUTISTA Administration Hydralazine HCl 5 mg 04/03/21 22:21 04/03/21 22:51 Hydralazine 20 Mg/1 Ml Inj IV 5 mg Q4HR PRN Administration Hypertension Ibuprofen 800 mg 04/03/21 14:05 04/05/21 11:44 Ibuprofen 800 Mg Tab PO 800 mg Q8HR PRN Administration Pain , Severe (7-10) Magnesium Hydroxide 30 ml 04/03/21 14:03 Magnesium Hydroxide (Mom) Oral Liqd Udc PO Q4H PRN Constipation Metoclopramide HCl 10 mg 04/03/21 14:03 Metoclopramide 10 Mg Tab PO Q6H PRN Nausea And Vomiting Nicotine 14 mg 04/04/21 10:00 04/05/21 11:26 Nicotine 14 Mg/24 Hr Patch TD 14 mg QDAY BAUTISTA Administration Ondansetron HCl 4 mg 04/03/21 14:03 04/04/21 11:02 Ondansetron 4 Mg/2 Ml Inj IV 4 mg Q8H PRN Administration Nausea And Vomiting Promethazine HCl 25 mg 04/03/21 14:03 Promethazine 25 Mg Rect Supp UT Q6H PRN Nausea And Vomiting Sodium Chloride 10 ml 04/03/21 14:03 Sodium Chloride 0.9% 10 Ml Flush Syringe IV PRN PRN LINE FLUSH Tramadol HCl 50 mg 04/03/21 14:27 Tramadol 50 Mg Tab PO Q6H PRN Pain, Moderate (4-6) Trazodone HCl 50 mg 04/04/21 23:14 04/04/21 23:46 Trazodone 50 Mg Tab PO 50 mg QHS PRN Administration Insomnia Nutrition/Malnutrition Assess - Dietary Evaluation Nutrition/Malnutrition Findings: Nutrition Notes Start: 04/05/21 12:29 Freq: Status: Active Protocol: Document 04/05/21 12:29 AL (Rec: 04/05/21 12:34 AL [id number]) Co-Sign 04/05/21 12:29 LP Nutrition Notes Need for Assessment generated from: MD Order Initial or Follow up Brief Note Current Diagnosis Diabetes,Hypertension,Heart Failure,Stroke Other Pertinent Diagnosis AMS, Nicotene dependance, GERD Current Diet No diet ordered Subjective/Other Information Pt passed bedside swallow eval and awaits [employer] evaluation for diet advancement. Per pt, not appetite change or wt loss reported. Current % PO Negligible Nutrition Intervention Goal #1 Diet advancement to meet energy needs. Anticipated Discharge Needs: Unable to determine at this time. Follow-Up By: 04/10/21 Additional Comments F/U for speech eval and diet advancement
[2021-04-05] MEDS ORDERED: DEXTROSE 50% IN WATER (25GM) 50 ML SYRINGE IV PRN (17:28)
[2021-04-05] MEDS ORDERED: POTASSIUM CHLORIDE 10 MEQ 10 MEQ/100 ML BAG IV SCH (22:00)
[2021-04-05] MEDS: INSULIN LISPRO 100 UNIT/ML SUB-Q SCH (22:14)
[2021-04-05] MEDS: INSULIN NPH/REGULAR 70/30 INJ SUB-Q SCH (22:14)
[2021-04-06 03:28] LABS: Basophils # (Auto) 0.1 K/mm3 (0.0-0.1); Basophils % (Auto) 1.2 % (0.0-1.8); Eosinophils # (Auto) 0.1 K/mm3 (0.0-0.4); Eosinophils % (Auto) 1.2 % (0.0-4.3); Hematocrit 47.7 % (30.3-42.9); Hemoglobin 15.8 gm/dl (10.1-14.3); Lymphocytes # (Auto) 3.1 K/mm3 (1.2-5.4); Lymphocytes % (Auto) 36.4 % (13.4-35.0); Mean Corpuscular HGB Conc 33 % (30-34); Mean Corpuscular Volume 95 fl (79-97); Monocytes # (Auto) 0.9 K/mm3 (0.0-0.8); Monocytes % (Auto) 10.3 % (0.0-7.3); Platelet Count 259 K/mm3 (140-440); Red Blood Count 5.01 M/mm3 (3.65-5.03); Red Cell Distribution Width 13.9 % (13.2-15.2)
[2021-04-06 03:51] LABS: Alanine Aminotransferase 24 units/L (7-56); Albumin 3.2 g/dL (3.9-5); BUN/Creatinine Ratio 31; Blood Urea Nitrogen 28 mg/dL (7-17); Calcium 8.9 mg/dL (8.4-10.2); Hemolysis Index 49
[2021-04-06] MEDS ORDERED: POTASSIUM CHLORIDE ER 20 MEQ TAB PO ONE (05:35)
[2021-04-06] MEDS: GABAPENTIN 300 MG CAP PO SCH ×2 (05:38→23:09)
[2021-04-06] MEDS: INSULIN LISPRO 100 UNIT/ML SUB-Q SCH ×3 (07:30→16:30)
[2021-04-06] MEDS: INSULIN NPH/REGULAR 70/30 INJ SUB-Q SCH ×2 (07:30→17:00)
--- NOTE | 2021-04-06 09:19 | Discharge Summary ---
Providers - Providers Date of Admission: 04/03/21 14:03 Date of discharge: 04/07/21 Attending physician: KYE KAUFMAN 04/03/21 14:03 Occupational Therapy Evaluate and Treat [CONS] Routine Comment: Reason For Exam: Neuro deficits Physical Therapy Evaluation and Treat [CONS] Routine Comment: Reason For Exam: Neuro deficits 04/04/21 07:55 Consult to Physician [CONS] Routine Comment: Consulting Provider: RYNE DASILVA Physician Instructions: Reason For Exam: CVA Primary care physician: [employer] Hospitalization Reason for admission: Left-sided weakness Condition: Stable Hospital course: 65 YO Female with CVA on DAPT, HTN, DM, Diastolic CHF, GERD, Nicotine Dependence presents to ED for evaluation. Pt is dysarthric and able to provide history at time of evaluation. Patient history provided by EMS staff, ED staff, as well as the patient's family. As per family the patient was in her usual state of health the day prior to admission and developed since left-sided weakness around 2100 hrs. Patient went to bed and awakened from sleep with persistent symptoms. EMS was notified and upon arrival of the patient was found to have possibly a neurologic deficit. A code stroke was called and the patient was transported to [facility] for further care and evaluation of the aforementioned sym ptoms. The patient was seen and evaluated in the emergency department. All lab and imaging studies reviewed. The patient was found to have symptoms consistent with possible CVA. Teleneurology team consulted in ED. Patient deemed to be outside therapeutic window for TPA. The patient was placed in observation status and admitted to telemetry and initiated on CVA protocol. Patient had an evaluation with CTA head and neck that shows stenosis in the right ICA. CTA neck was negative for any significant stenosis. Neurology was consulted. Hospital course 04/04. She is on aspirin and plavix. She states she has been compliant with her medications. Her speech has improved. Has some left sided weakness. 04/05. No change in neurological exam. Remains on dual antiplatelet therapy. Neurology following. Awaiting PT evaluation 04/06. Neurology evaluated the patient and reported no acute CVA. CT brain remarkable for right MCA infarct with MRI brain remarkable for pre-existing subacute CVA. Patient previously on aspirin and Plavix plus Lipitor. CTA brain and neck is remarkable for 70% stenosis in bilateral cavernous ICA. Physical therapy evaluated the patient and recommended home health PT. Neurology felt that patient had lumbar pain which was contributing to her weakness. MRI of the lumbar spine revealed degenerative disc disease. Neurology recommended discharge with aspirin plus Plavix 75 mg x 3 months then Plavix alone with Lipitor. Continue home health management of decubitus ulcer. Follow-up with orthopedics as an outpatient. Neurology follow-up as an outpatient as well. Dedicated discharge time 35 minutes. Disposition: DC-01 TO HOME OR SELFCARE Final Discharge Diagnosis (Prints w/discharge instructions): Left-sided weakness secondary to degenerative disc disease. No acute CVA. Memory difficulty with possibility of underlying dementia. Core Measure Documentation - Palliative Care Palliative Care/ Comfort Measures: Not Applicable - Core Measures Any of the following diagnoses?: none Exam - Constitutional Vitals: Temp Pulse Resp BP Pulse Ox 98.0 F 94 H 18 107/78 93 04/06/21 04:07 04/06/21 04:07 04/06/21 04:07 04/06/21 04:07 04/06/21 04:07 General appearance: Present: no acute distress, well-nourished - EENT Eyes: Present: PERRL ENT: hearing intact, clear oral mucosa - Neck Neck: Present: supple, normal ROM - Respiratory Respiratory effort: normal Respiratory: bilateral: CTA - Cardiovascular Heart Sounds: Present: S1 & S2. Absent: rub, click - Extremities Extremities: pulses symmetrical, No edema Peripheral Pulses: within normal limits - Abdominal General gastrointestinal: Present: soft, non-tender, non-distended, normal bowel sounds Female genitourinary: Present: normal - Integumentary Integumentary: Present: clear, warm, dry - Musculoskeletal Musculoskeletal: gait normal, strength equal bilaterally - Psychiatric Psychiatric: appropriate mood/affect, intact judgment & insight - Neurologic Neurologic: CNII-XII intact, moves all extremities Plan Activity: advance as tolerated Weight Bearing Status: Weight Bear as Tolerated Diet: diabetic Special Instructions: physical therapy Additional Instructions: 1-mainatinASA plus PLAVIX 75 mg X3 months then Plavix. 2- Lipitor. 3- managmant of decubitus ulcer. '4- mainatin neurontine. 5- follow up with orthopedic. 6-managment of colostomy tube. 7- neurology follow up for CVA, dementia in 2-3 months. 8-home health pt therapy Follow up with: PRIMARY CAREMD [Primary Care Provider] - 3-5 Days RYNE DASILVA MD [Staff Physician] - 7 Days JACQUELINE SPENCE MD [Staff Physician] - 7 Days Prescriptions: Aspirin 325 mg PO QDAY #90 tablet Baclofen 20 mg PO Q8H PRN #24 tablet PRN Reason: Muscle Spasm Gabapentin 600 mg PO Q8HR #90 cap AtorvaSTATin [Lipitor] 80 mg PO QHS #60 tablet AtorvaSTATin [Lipitor] 80 mg PO QHS #60 tab Famotidine [Pepcid] 20 mg PO BID #60 tablet Clopidogrel [Plavix] 75 mg PO QDAY #90 tablet
[2021-04-06] MEDS: NICOTINE 14 MG/24 HR PATCH TD SCH (12:03)
[2021-04-06] MEDS: ENOXAPARIN 40 MG/0.4 ML INJ SUB-Q SCH (12:04)
[2021-04-06] MEDS: CLOPIDOGREL 75 MG TAB PO SCH (12:04)
[2021-04-06] MEDS: FAMOTIDINE 20 MG TAB PO SCH ×2 (12:04→23:08)
[2021-04-06] MEDS: ASPIRIN 325 MG TAB PO SCH (12:04)
[2021-04-07 06:32] LABS: Basophils # (Auto) 0.1 K/mm3 (0.0-0.1); Basophils % (Auto) 1.2 % (0.0-1.8); Eosinophils # (Auto) 0.1 K/mm3 (0.0-0.4); Eosinophils % (Auto) 1.3 % (0.0-4.3); Hemoglobin 16.9 gm/dl (10.1-14.3); Lymphocytes # (Auto) 2.9 K/mm3 (1.2-5.4); Lymphocytes % (Auto) 42.5 % (13.4-35.0); Mean Corpuscular HGB Conc 33 % (30-34); Mean Corpuscular Volume 97 fl (79-97); Monocytes # (Auto) 0.8 K/mm3 (0.0-0.8); Monocytes % (Auto) 11.5 % (0.0-7.3); Red Blood Count 5.25 M/mm3 (3.65-5.03); Red Cell Distribution Width 14.1 % (13.2-15.2)
[2021-04-07 06:41] LABS: Alanine Aminotransferase 33 units/L (7-56); Albumin 3.6 g/dL (3.9-5); Blood Urea Nitrogen 16 mg/dL (7-17); Calcium 9.2 mg/dL (8.4-10.2); Hemolysis Index 82
[2021-04-07 06:42] LABS: Platelet Count 254 K/mm3 (140-440)
[2021-04-07] MEDS: GABAPENTIN 300 MG CAP PO SCH ×3 (06:49→13:42)
[2021-04-07 06:57] LABS: BUN/Creatinine Ratio 23
--- NOTE | 2021-04-07 08:56 | Progress Note ---
Assessment and Plan Assessment and plan: Left-sided weakness Continue aspirin and Plavix Statins MRI brain with and without contrast negative CTA head and neck-shows 75% stenosis of the right ICA carotid cavernous area Echocardiogram with bubble study negative Neurology evaluation appreciated Telemetry monitoring to rule atrial fibrillation Physical therapy - pending #Complains of back pain MRI lumbar ordered #Slight abdominal pain CT abdomen and pelvis ordered to reevaluate - largia hiatal hernia. No obstruction or strangulation #Nicotine dependence Smoking cessation counseling rendered #History of dementia Stable #DVT prophylaxis-Heparin #Disposition - PT pending. May need placement. History Interval history: No new issues overnight. Hospitalist Physical - Constitutional Vitals: Temp Pulse Resp BP Pulse Ox 98.4 F 68 18 141/68 95 04/07/21 04:39 04/07/21 04:39 04/07/21 04:39 04/07/21 04:39 04/06/21 22:00 General appearance: Present: no acute distress, well-nourished - EENT Eyes: Present: PERRL, EOM intact ENT: hearing intact, clear oral mucosa, dentition normal - Neck Neck: Present: supple, normal ROM - Respiratory Respiratory effort: normal Respiratory: bilateral: CTA - Cardiovascular Rhythm: regular Heart Sounds: Present: S1 & S2. Absent: gallop, rub - Extremities Extremities: no ischemia, No edema, Full ROM - Abdominal General gastrointestinal: soft, non-tender, non-distended, normal bowel sounds - Integumentary Integumentary: Present: clear, warm, dry - Neurologic Neurologic: CNII-XII intact, moves all extremities HEART Score - HEART Score Troponin: Troponin T < 0.010 ng/mL (0.00-0.029) 04/03/21 12:30 Results - Labs CBC & Chem 7: 04/07/21 05:44 04/07/21 05:44 Labs: Laboratory Last Values WBC 6.9 K/mm3 (4.5-11.0) 04/07/21 05:44 RBC 5.25 M/mm3 (3.65-5.03) H 04/07/21 05:44 Hgb 16.9 gm/dl (10.1-14.3) H 04/07/21 05:44 Hct 51.0 % (30.3-42.9) H 04/07/21 05:44 MCV 97 fl (79-97) 04/07/21 05:44 MCH 32 pg (28-32) 04/07/21 05:44 MCHC 33 % (30-34) 04/07/21 05:44 RDW 14.1 % (13.2-15.2) 04/07/21 05:44 Plt Count 254 K/mm3 (140-440) 04/07/21 05:44 Lymph % (Auto) 42.5 % (13.4-35.0) H 04/07/21 05:44 Bryan % (Auto) 11.5 % (0.0-7.3) H 04/07/21 05:44 Eos % (Auto) 1.3 % (0.0-4.3) 04/07/21 05:44 Baso % (Auto) 1.2 % (0.0-1.8) 04/07/21 05:44 Lymph # (Auto) 2.9 K/mm3 (1.2-5.4) 04/07/21 05:44 Bryan # (Auto) 0.8 K/mm3 (0.0-0.8) 04/07/21 05:44 Eos # (Auto) 0.1 K/mm3 (0.0-0.4) 04/07/21 05:44 Baso # (Auto) 0.1 K/mm3 (0.0-0.1) 04/07/21 05:44 Seg Neutrophils % 43.5 % (40.0-70.0) 04/07/21 05:44 Seg Neutrophils # 3.0 K/mm3 (1.8-7.7) 04/07/21 05:44 PT 13.5 Sec. (12.2-14.9) 04/03/21 14:18 INR 1.05 (0.87-1.13) 04/03/21 14:18 APTT 25.2 Sec. (24.2-36.6) 04/03/21 14:18 Thrombin Time 21.2 Sec. (15.1-19.6) H 04/03/21 14:18 Sodium 138 mmol/L (137-145) 04/07/21 05:44 Potassium 3.5 mmol/L (3.6-5.0) L 04/07/21 05:44 Chloride 101.5 mmol/L (98-107) 04/07/21 05:44 Carbon Dioxide 25 mmol/L (22-30) 04/07/21 05:44 Anion Gap 15 mmol/L 04/07/21 05:44 BUN 16 mg/dL (7-17) 04/07/21 05:44 Creatinine 0.7 mg/dL (0.6-1.2) 04/07/21 05:44 Estimated GFR > 60 ml/min 04/07/21 05:44 BUN/Creatinine Ratio 23 % 04/07/21 05:44 Glucose 349 mg/dL (65-100) H 04/07/21 05:44 POC Glucose 275 mg/dL (70-105) H 04/06/21 20:46 Calcium 9.2 mg/dL (8.4-10.2) 04/07/21 05:44 Total Bilirubin 0.50 mg/dL (0.1-1.2) 04/07/21 05:44 Direct Bilirubin < 0.2 mg/dL (0-0.2) 04/03/21 12:30 Indirect Bilirubin 0.2 mg/dL 04/03/21 12:30 AST 39 units/L (5-40) 04/07/21 05:44 ALT 33 units/L (7-56) 04/07/21 05:44 Alkaline Phosphatase 115 units/L (35-129) 04/07/21 05:44 Total Creatine Kinase 504 units/L (30-135) H 04/03/21 12:30 CK-MB (CK-2) 3.8 ng/mL (0.0-4.0) 04/03/21 12:30 CK-MB (CK-2) Rel Index 0.7 (0-4) 04/03/21 12:30 Troponin T < 0.010 ng/mL (0.00-0.029) 04/03/21 12:30 Total Protein 7.3 g/dL (6.3-8.2) 04/07/21 05:44 Albumin 3.6 g/dL (3.9-5) L 04/07/21 05:44 Albumin/Globulin Ratio 1.0 % 04/07/21 05:44 Triglycerides 145 mg/dL (2-149) 04/04/21 05:14 Cholesterol 193 mg/dL (50-199) 04/04/21 05:14 LDL Cholesterol Direct 119 mg/dL (50-130) 04/04/21 05:14 HDL Cholesterol 54 mg/dL (40-59) 04/04/21 05:14 Cholesterol/HDL Ratio 3.57 % 04/04/21 05:14 TSH 0.755 mlU/mL (0.270-4.200) 04/04/21 17:47 Free T4 1.07 ng/dL (0.76-1.46) 04/04/21 17:47 Enriquez/IV: Voiding Method External Female Catheter Active Medications - Current Medications Current Medications: Generic Name Dose Route Start Last Admin Trade Name Freq PRN Reason Stop Dose Admin Acetaminophen 650 mg 04/03/21 14:03 04/06/21 12:04 Acetaminophen 325 Mg Tab PO 650 mg Q4H PRN Administration Pain, Mild (1-3) Aspirin 325 mg 04/04/21 10:00 04/06/21 12:04 Aspirin 325 Mg Tab PO 325 mg QDAY BAUTISTA Administration Atorvastatin Calcium 80 mg 04/06/21 22:00 04/06/21 23:09 Atorvastatin 40 Mg Tab PO 80 mg QHS BAUTISTA Administration Baclofen 20 mg 04/03/21 14:28 04/06/21 23:08 Baclofen 10 Mg Tab PO 20 mg Q8H PRN Administration Muscle Spasm Bisacodyl 10 mg 04/03/21 14:03 Bisacodyl 10 Mg Rect Supp GA QDAY PRN Constipation Clopidogrel Bisulfate 75 mg 04/04/21 10:00 04/06/21 12:04 Clopidogrel 75 Mg Tab PO 75 mg QDAY BAUTISTA Administration Dextrose 50 ml 04/05/21 17:28 Dextrose 50% In Water (25gm) 50 Ml Syringe IV Q30MIN PRN Hypoglycemia Protocol Enoxaparin Sodium 40 mg 04/05/21 11:00 04/06/21 12:04 Enoxaparin 40 Mg/0.4 Ml Inj SUB-Q 40 mg DAILY BAUTISTA Administration Protocol Famotidine 20 mg 04/03/21 22:00 04/06/21 23:08 Famotidine 20 Mg Tab PO 20 mg BID BAUTISTA Administration Gabapentin 600 mg 04/03/21 22:00 04/07/21 08:14 Gabapentin 300 Mg Cap PO Not Given Q8HR BAUTISTA Hydralazine HCl 5 mg 04/03/21 22:21 04/03/21 22:51 Hydralazine 20 Mg/1 Ml Inj IV 5 mg Q4HR PRN Administration Hypertension Ibuprofen 800 mg 04/03/21 14:05 04/05/21 22:25 Ibuprofen 800 Mg Tab PO 800 mg Q8HR PRN Administration Pain , Severe (7-10) Insulin Human Isoph/Insulin Regular 24 unit 04/05/21 20:00 04/06/21 17:00 Insulin Nph/Regular 70/30 Inj SUB-Q Not Given BIDDIAB [facility] Insulin Human Lispro 0 unit 04/05/21 22:00 04/06/21 16:30 Insulin Lispro 100 Unit/Ml SUB-Q Not Given ACHS [facility] Protocol Magnesium Hydroxide 30 ml 04/03/21 14:03 Magnesium Hydroxide (Mom) Oral Liqd Udc PO Q4H PRN Constipation Metoclopramide HCl 10 mg 04/03/21 14:03 Metoclopramide 10 Mg Tab PO Q6H PRN Nausea And Vomiting Nicotine 14 mg 04/04/21 10:00 04/06/21 12:03 Nicotine 14 Mg/24 Hr Patch TD 14 mg QDAY BAUTISTA Administration Ondansetron HCl 4 mg 04/03/21 14:03 04/04/21 11:02 Ondansetron 4 Mg/2 Ml Inj IV 4 mg Q8H PRN Administration Nausea And Vomiting Promethazine HCl 25 mg 04/03/21 14:03 Promethazine 25 Mg Rect Supp GA Q6H PRN Nausea And Vomiting Sodium Chloride 10 ml 04/03/21 14:03 Sodium Chloride 0.9% 10 Ml Flush Syringe IV PRN PRN LINE FLUSH Tramadol HCl 50 mg 04/03/21 14:27 Tramadol 50 Mg Tab PO Q6H PRN Pain, Moderate (4-6) Trazodone HCl 50 mg 04/04/21 23:14 04/04/21 23:46 Trazodone 50 Mg Tab PO 50 mg QHS PRN Administration Insomnia Nutrition/Malnutrition Assess - Dietary Evaluation Nutrition/Malnutrition Findings: Nutrition Notes Start: 04/05/21 12:29 Freq: Status: Active Protocol: Document 04/05/21 12:29 AL (Rec: 04/05/21 12:34 AL [id number]) Co-Sign 04/05/21 12:29 LP Nutrition Notes Need for Assessment generated from: MD Order Initial or Follow up Brief Note Current Diagnosis Diabetes,Hypertension,Heart Failure,Stroke Other Pertinent Diagnosis AMS, Nicotene dependance, GERD Current Diet No diet ordered Subjective/Other Information Pt passed bedside swallow eval and awaits ZYGLO INSPECTOR evaluation for diet advancement. Per pt, not appetite change or wt loss reported. Current % PO Negligible Nutrition Intervention Anticipated Discharge Needs: Unable to determine at this time. Follow-Up By: 04/10/21 Additional Comments F/U for speech eval and diet advancement
[2021-04-07] MEDS: INSULIN LISPRO 100 UNIT/ML SUB-Q SCH ×2 (09:07→13:42)
[2021-04-07] MEDS: INSULIN NPH/REGULAR 70/30 INJ SUB-Q SCH (09:08)
[2021-04-07] MEDS: FAMOTIDINE 20 MG TAB PO SCH (09:09)
[2021-04-07] MEDS: NICOTINE 14 MG/24 HR PATCH TD SCH (09:09)
[2021-04-07] MEDS: CLOPIDOGREL 75 MG TAB PO SCH (09:09)
[2021-04-07] MEDS: ASPIRIN 325 MG TAB PO SCH (09:09)
[2021-04-07] MEDS: ENOXAPARIN 40 MG/0.4 ML INJ SUB-Q SCH (09:09)
[2021-04-07 14:07] VITALS: BP 154/70
== END 2021-04-07 17:00 | disposition home health service (06) | DRG 552 ==
LOC: ED 11:29 → OBSVTOIN 14:03 → 4A 14:03
PROVIDERS: ADMIT Internal Medicine; ATTEND Hospitalist
DX: M51.36 Other intervertebral disc degeneration, lumbar region (principal); G45.9 Transient cerebral ischemic attack, unspecified; E78.5 Hyperlipidemia, unspecified; I10 Essential (primary) hypertension; R47.1 Dysarthria and anarthria; I11.0 Hypertensive heart disease with heart failure; E11.9 Type 2 diabetes mellitus without complications; I50.30 Unspecified diastolic (congestive) heart failure; K21.9 Gastro-esophageal reflux disease without esophagitis; M19.90 Unspecified osteoarthritis, unspecified site; J45.909 Unspecified asthma, uncomplicated; F17.213 Nicotine dependence, cigarettes, with withdrawal; D72.829 Elevated white blood cell count, unspecified; E66.9 Obesity, unspecified; F03.90 Unspecified dementia, unspecified severity, without behavioral disturbance, psychotic disturbance, mood disturbance, and anxiety; Z79.899 Other long term (current) drug therapy; Z79.891 Long term (current) use of opiate analgesic; Z79.01 Long term (current) use of anticoagulants; Z79.4 Long term (current) use of insulin; Z88.0 Allergy status to penicillin; Z86.73 Personal history of transient ischemic attack (TIA), and cerebral infarction without residual deficits; Z79.82 Long term (current) use of aspirin; Z83.3 Family history of diabetes mellitus; Z82.49 Family history of ischemic heart disease and other diseases of the circulatory system; Z93.3 Colostomy status; Z71.6 Tobacco abuse counseling
CPT/HCPCS: 36415; 70450; 70496; 70498; 70551; 72148; 74176; 80048; 80053; 80061; 80076; 82550; 82553; 82565; 82962; 84439; 84443; 84484; 85025; 85610; 85670; 85730; 93005; 99406; G0378; J0360; J1650; J1815; J2405; J3480; Q9967

== ENCOUNTER 2021-04-19 18:05 | Observation (INO) | payer MEDICAID ==
--- NOTE | 2021-04-19 19:40 | Event Note ---
ED Screening Note ED Screening Note: Patient presents for frequent falls that began a couple days ago She states that she feels dizzy and also makes her fall She states at times that she is on the toilet sitting there and then begins to feel dizzy and falls off the toilet She states that she has hit her head She is complaining of headache, right jaw pain, right hip pain, lower back pain This initial assessment/diagnostic orders/clinical plan/treatment(s) is/are subject to change based on patients health status, clinical progression and re- assessment by fellow clinical providers in the ED. Further treatment and workup at subsequent clinical providers discretion. Patient/guardian urged not to elope from the ED as their condition may be serious if not clinically assessed and managed. Initial orders include: Labs, EKG, urine, scans
[2021-04-19 19:57] LABS: Basophils # (Auto) 0.1 K/mm3 (0.0-0.1); Basophils % (Auto) 1.2 % (0.0-1.8); Eosinophils # (Auto) 0.1 K/mm3 (0.0-0.4); Eosinophils % (Auto) 0.6 % (0.0-4.3); Hematocrit 47.6 % (30.3-42.9); Hemoglobin 16.2 gm/dl (10.1-14.3); Lymphocytes # (Auto) 2.6 K/mm3 (1.2-5.4); Lymphocytes % (Auto) 24.8 % (13.4-35.0); Mean Corpuscular HGB Conc 34 % (30-34); Mean Corpuscular Volume 95 fl (79-97); Monocytes # (Auto) 0.6 K/mm3 (0.0-0.8); Monocytes % (Auto) 5.8 % (0.0-7.3); Platelet Count 267 K/mm3 (140-440); Red Blood Count 5.02 M/mm3 (3.65-5.03); Red Cell Distribution Width 14.3 % (13.2-15.2)
[2021-04-19 20:07] LABS: INR 0.92 (0.87-1.13)
[2021-04-19 20:08] LABS: Partial Thromboplastin Time 24.2 Sec. (24.2-36.6)
[2021-04-19 20:20] LABS: Alanine Aminotransferase 44 units/L (7-56); Albumin 3.7 g/dL (3.9-5); BUN/Creatinine Ratio 19; Blood Urea Nitrogen 13 mg/dL (7-17); Calcium 9.1 mg/dL (8.4-10.2); Hemolysis Index 10
--- NOTE | 2021-04-19 20:23 | XRay Report ---
RIGHT HIP 2 VIEWS INDICATION / CLINICAL INFORMATION: Fall with right hip pain. COMPARISON: None available. FINDINGS: BONES / JOINT(S): The hip and SI joint spaces are well-maintained. There are moderate degenerative ch anges at the lumbosacral junction. I see no evidence of acute fracture or subluxation. SOFT TISSUES: No significant abnormality. ADDITIONAL FINDINGS: None. Signer Name: Alfonso Chapin MD Signed: 04/19/2021 8:19 PM Workstation Name: [id number]
--- NOTE | 2021-04-19 20:34 | Cat Scan Report ---
CT HEAD WITHOUT CONTRAST INDICATION / CLINICAL INFORMATION: frequent falls, headache, hit head, dizzy. TECHNIQUE: All CT scans at this location are performed using CT dose reduction for ALARA by means of automated e xposure control. COMPARISON: MRI lumbar spine 04/04/2021 FINDINGS: HEMORRHAGE: No evidence of intracranial hemorrhage or extra-axial fluid collection. EXTRA-AXIAL SPACES: Focal dilatation of cortical sulci is observed along the lateral convexity of the right frontal lobe secondary to remote right MCA infarction. Elsewhere the cortical sulci, sylvian f issures and basilar cisterns have an unremarkable appearance. VENTRICULAR SYSTEM: The third and lateral ventricles are of normal size and configuration. CEREBRAL PARENCHYMA: Large area of encephalomalacia is observed in the right frontal lobe secondary t o remote right MCA infarction. Periventricular and deep white matter lucencies noted consistent with microvascular ischemic change. No additional areas of abnormal brain parenchymal attenuation are iden tified. MIDLINE SHIFT OR HERNIATION: There is no mass effect. CEREBELLUM / BRAINSTEM: Brainstem and cerebellum have an unremarkable appearance. MIDLINE STRUCTURES:No abnormalities of the pituitary gland or pineal region are identified. INTRACRANIAL VESSELS:No abnormalities are identified on this noncontrast head CT. ORBITS: Bilateral enlargement of the lacrimal glands is noted. Are there signs or symptoms of sjogren 's syndrome SOFT TISSUES of HEAD: No significant abnormality. CALVARIUM: Evaluation of bone windows reveals no abnormalities. PARANASAL SINUSES / MASTOID AIR CELLS: Visualized portions of the paranasal sinuses are free from inf lammatory mucosal disease. Mastoid air cells are normally pneumatized. ADDITIONAL FINDINGS: None. IMPRESSION: 1. Remote right MCA infarction. 2. No acute intracranial abnormality. 3. Bilateral lacrimal gland enlargement. Signer Name: Juan Pitts MD Signed: 04/19/2021 8:29 PM Workstation Name: [id number]
--- NOTE | 2021-04-19 20:37 | Cat Scan Report ---
CT MAXILLOFACIAL WITHOUT CONTRAST INDICATION / CLINICAL INFORMATION: frequent falls, right mandible pain. TECHNIQUE: All CT scans at this location are performed using CT dose reduction for ALARA by means of automated e xposure control. COMPARISON: None available. FINDINGS: FACIAL BONES: No fracture or other significant abnormality. The mandible is intact. ULTIMATE HOOPS SCOREBOARD OPERATOR SPACES:Evaluation of the lapidary apprentice space structures reveal no abnormalities. SALIVARY GLANDS: Parotid and submandibular salivary glands have an unremarkable appearance. PARANASAL SINUSES: No significant abnormality. NASAL CAVITY: No abnormality. ORBITS: Bilateral lacrimal gland enlargement. No additional abnormality. TEMPORAL BONES:Visualized mastoid air cells and the middle ear cavities are normally pneumatized. VISUALIZED INTRACRANIAL STRUCTURES: Refer to CT head dictated separately. IMPRESSION: 1. No indication of facial fracture. 2. Widespread dental caries and periodontal disease. Signer Name: Juan Pitts MD Signed: 04/19/2021 8:33 PM Workstation Name: [id number]
--- NOTE | 2021-04-19 20:41 | Cat Scan Report ---
CT LUMBAR SPINE WITHOUT CONTRAST INDICATION / CLINICAL INFORMATION: frequent falls, low back pain. TECHNIQUE: Axial CT images were obtained through the lumbar spine. Sagittal and coronal reformatted images were produced. All CT scans at this location are performed using CT dose reduction for ALARA by means of a utomated exposure control. COMPARISON: None available. FINDINGS: ALIGNMENT: Grade 1 spondylolisthesis is noted at the L4-5 level. This is on a degenerative basis. Ali gnment is otherwise normally maintained. There is no indication of traumatic subluxation. VERTEBRAE: No indication of fracture. DISC SPACES: Loss of disc height and disc vacuum phenomena are noted at the L1-2, L2-3 and L3-4 level s. DEGENERATIVE CHANGES: Broad-based disc bulge and facet arthropathy contribute to mild central canal s tenosis at L2-3, moderate central canal stenosis at L3-4. Spondylolisthesis and facet arthropathy and thickening of ligamentum flavum contribute to severe central canal stenosis at L4-5. Widespread face t arthropathy is present throughout the lumbar region. SPINAL CANAL: Central spinal canal is adequate in size throughout the lumbar region. SACRUM:No significant abnormality of the visualized sacrum.. Bilateral sacroiliac joint vacuum phenom andres is noted. PARASPINAL SOFT TISSUES: No significant abnormality. IMPRESSION: 1. Degenerative grade 1 spondylolisthesis and facet arthropathy contribute to severe central canal st enosis at L4-5. 2. Milder central canal stenosis is observed at the L2-3 and L3-4 levels. 3. No indication of fracture or traumatic subluxation. Signer Name: Juan Pitts MD Signed: 04/19/2021 8:37 PM Workstation Name: [id number]
[2021-04-19 21:45] LABS: Bacteria,Urine 1+ /HPF (Negative); Bilirubin,Urine NEG (Negative); Blood,Urine SM (Negative); Color,Urine Yellow (Yellow); Mucus,Urine FEW /HPF; Urobilinogen,Urine < 2.0 mg/dL (<2.0)
--- NOTE | 2021-04-19 21:51 | Emergency Department Report ---
ED Fall HPI - General Chief Complaint: Fall Stated Complaint: FALL Time Seen by Provider: 04/19/21 19:34 Source: patient, EMS Mode of arrival: Wheelchair - History of Present Illness Initial Comments: Patient is a 65-year-old female presents emergency room with complaints of mult iple falls. Patient states that she started feeling weak about 3 or 4 days ago. Patient states she was here a week ago for a stroke and was recently discharged. Patient states she is having chest pain, face pain and back pain. Patient states she doesn't get dizzy or lightheaded she just feels weak and loses her balance. Patient states she has had too many falls to count. Patient states she hit her face in her bathroom. Patient states the pain is a 10 out of 10. Patient states the pain is better with rest and worse with palpation and movement. Patient states the chest pain is in the left chest. Patient states that pain is better with rest and worse with exertion and movement. Patient denies recent travel. Patient denies recent international travel. Patient denies exposure to the novel coronavirus. Patient denies sick contacts. Patient denies fever and chills. Patient denies cough. Patient denies diarrhea. Patient denies coming in contact with anybody with symptoms of the novel coronavirus. MD Complaint: fall -: Sudden, days(s) When Fall Occurred: recurrent falls Fall Witnessed: yes, by family Place Fall Occurred: home Loss of Consciousness: none Prolonged Down Time?: no Symptoms Prior to Fall: other (Weakness) Severity: severe Severity scale (0 -10): 10 Quality: sharp Context: tripped/slipped - Related Data Previous Rx's Medication Instructions Recorded Last Taken Type Nicotine [Habitrol] 14 mg TD QDAY #30 patch 07/23/19 Unknown Rx Aspirin 325 mg PO QDAY #30 tablet 03/15/21 Unknown Rx Insulin NPH/Regular [NovoLIN 70/30] 36 unit SUB-Q BIDDIAB #20 ml 03/15/21 Unknown Rx traMADoL [Ultram 50 MG tab] 50 mg PO Q6HR PRN #12 tablet 03/29/21 Unknown Rx Aspirin 325 mg PO QDAY #90 tablet 04/06/21 Unknown Rx AtorvaSTATin [Lipitor] 80 mg PO QHS #60 tab 04/06/21 Unknown Rx AtorvaSTATin [Lipitor] 80 mg PO QHS #60 tablet 04/06/21 Unknown Rx Baclofen 20 mg PO Q8H PRN #24 tablet 04/06/21 Unknown Rx Clopidogrel [Plavix] 75 mg PO QDAY #90 tablet 04/06/21 Unknown Rx Famotidine [Pepcid] 20 mg PO BID #60 tablet 04/06/21 Unknown Rx Gabapentin 600 mg PO Q8HR #90 cap 04/06/21 Unknown Rx Insulin NPH/Regular [NovoLIN 70/30] 24 unit SUB-Q BIDDIAB units 04/06/21 Unknown Rx Lispro Insulin [HumaLOG] 0 unit SUB-Q ACHS units 04/06/21 Unknown Rx Metoclopramide [Reglan TAB] 10 mg PO Q6H PRN tablet 04/06/21 Unknown Rx traZODone [Desyrel] 50 mg PO QHS PRN tablet 04/06/21 Unknown Rx Allergies Allergy/AdvReac Type Severity Reaction Status Date / Time Penicillins Allergy Swelling Verified 04/19/21 18:25 ED Review of Systems ROS: Stated complaint: FALL Other details as noted in HPI Constitutional: denies: chills, fever Eyes: denies: eye pain, eye discharge, vision change ENT: as per HPI. denies: ear pain, throat pain Respiratory: denies: cough, shortness of breath, wheezing Cardiovascular: as per HPI, chest pain. denies: palpitations Endocrine: no symptoms reported Gastrointestinal: denies: abdominal pain, nausea, diarrhea Genitourinary: denies: urgency, dysuria, discharge Musculoskeletal: as per HPI, back pain. denies: joint swelling, arthralgia Skin: denies: rash, lesions Neurological: denies: headache, weakness, paresthesias Psychiatric: denies: anxiety, depression Hematological/Lymphatic: denies: easy bleeding, easy bruising ED Past Medical Hx - Past Medical History Previous Medical History?: Yes Hx Hypertension: Yes Hx CVA: Yes Hx Congestive Heart Failure: Yes Hx Diabetes: Yes Hx Arthritis: Yes Hx Asthma: Yes Hx COPD: No - Surgical History Past Surgical History?: No - Family History Family history: no significant - Social History Smoking Status: Never Smoker Substance Use Type: Marijuana - Medications Home Medications: Home Medications Medication Instructions Recorded Confirmed Last Taken Type Nicotine [Habitrol] 14 mg TD QDAY #30 patch 07/23/19 04/07/21 Unknown Rx Aspirin 325 mg PO QDAY #30 tablet 03/15/21 04/07/21 Unknown Rx Insulin NPH/Regular [NovoLIN 70/30] 36 unit SUB-Q BIDDIAB #20 ml 03/15/21 04/07/21 Unknown Rx traMADoL [Ultram 50 MG tab] 50 mg PO Q6HR PRN #12 tablet 03/29/21 04/07/21 Unknown Rx Aspirin 325 mg PO QDAY #90 tablet 04/06/21 Unknown Rx AtorvaSTATin [Lipitor] 80 mg PO QHS #60 tab 04/06/21 Unknown Rx AtorvaSTATin [Lipitor] 80 mg PO QHS #60 tablet 04/06/21 Unknown Rx Baclofen 20 mg PO Q8H PRN #24 tablet 04/06/21 Unknown Rx Clopidogrel [Plavix] 75 mg PO QDAY #90 tablet 04/06/21 Unknown Rx Famotidine [Pepcid] 20 mg PO BID #60 tablet 04/06/21 Unknown Rx Gabapentin 600 mg PO Q8HR #90 cap 04/06/21 Unknown Rx Insulin NPH/Regular [NovoLIN 70/30] 24 unit SUB-Q BIDDIAB units 04/06/21 Unknown Rx Lispro Insulin [HumaLOG] 0 unit SUB-Q ACHS units 04/06/21 Unknown Rx Metoclopramide [Reglan TAB] 10 mg PO Q6H PRN tablet 04/06/21 Unknown Rx traZODone [Desyrel] 50 mg PO QHS PRN tablet 04/06/21 Unknown Rx ED Physical Exam - General Limitations: No Limitations General appearance: alert, in no apparent distress - Head Head exam: Present: atraumatic, normocephalic - Eye Eye exam: Present: normal appearance, PERRL Pupils: Present: normal accommodation - ENT ENT exam: Present: mucous membranes moist - Neck Neck exam: Present: normal inspection - Respiratory Respiratory exam: Present: normal lung sounds bilaterally. Absent: respiratory distress - Cardiovascular Cardiovascular Exam: Present: regular rate, normal rhythm. Absent: systolic murmur, diastolic murmur, rubs, gallop - GI/Abdominal GI/Abdominal exam: Present: soft, normal bowel sounds - Extremities Exam Extremities exam: Present: normal inspection - Back Exam Back exam: Present: normal inspection - Neurological Exam Neurological exam: Present: alert, oriented X3 - Psychiatric Psychiatric exam: Present: normal affect, normal mood - Skin Skin exam: Present: warm, dry, intact, normal color. Absent: rash ED Course Vital Signs 04/19/21 04/19/21 18:30 21:30 Temperature 98.7 F Pulse Rate 108 H 94 H Respiratory 20 13 Rate Blood Pressure 174/103 122/48 O2 Sat by Pulse 96 98 Oximetry - Reevaluation(s) Reevaluation #1: I discussed all results with patient. I discussed plan of care with patient. Patient agrees with plan of care and admission. Patient to be admitted to the hospitalist service. Patient will be given Dilaudid and Zofran for pain 04/19/21 22:05 - Consultations Consultation #1: Hospitalist consulted for admission. Hospitalist to admit patient. 04/19/21 22:05 ED Medical Decision Making - Lab Data Result diagrams: 04/19/21 19:40 04/19/21 19:40 - EKG Data -: EKG Interpreted by [facility] EKG shows normal: sinus rhythm, axis, intervals, QRS complexes, ST-T waves Rate: normal - Radiology Data Radiology results: report reviewed, image reviewed CT LUMBAR SPINE WITHOUT CONTRAST INDICATION / CLINICAL INFORMATION: frequent falls, low back pain. TECHNIQUE: Axial CT images were obtained through the lumbar spine. Sagittal and coronal reformatted images were produced. All CT scans at this location are performed using CT dose r eduction for ALARA by means of automated exposure control. COMPARISON: None available. FINDINGS: ALIGNMENT: Grade 1 spondylolisthesis is noted at the L4-5 level. This is on a degenerative basis. Alignment is otherwise normally maintained. There is no indication of traumatic subluxation. VERTEBRAE: No indication of fracture. DISC SPACES: Loss of disc height and disc vacuum phenomena are noted at the L1- 2, L2-3 and L3-4 levels. DEGENERATIVE CHANGES: Broad-based disc bulge and facet arthropathy contribute to mild central canal stenosis at L2-3, moderate central canal stenosis at L3-4. Spondylolisthesis and facet arthropathy and thickening of ligamentum flavum contribute to severe central canal stenosis at L4-5. Widespread facet arthropathy is present throughout the lumbar region. SPINAL CANAL: Central spinal canal is adequate in size throughout the lumbar region. SACRUM:No significant abnormality of the visualized sacrum.. Bilateral sacroil iac joint vacuum phenomena is noted. PARASPINAL SOFT TISSUES: No significant abnormality. IMPRESSION: 1. Degenerative grade 1 spondylolisthesis and facet arthropathy contribute to severe central canal stenosis at L4-5. 2. Milder central canal stenosis is observed at the L2-3 and L3-4 levels. 3. No indication of fracture or traumatic subluxation. RIGHT HIP 2 VIEWS INDICATION / CLINICAL INFORMATION: Fall with right hip pain. COMPARISON: None available. FINDINGS: BONES / JOINT(S): The hip and SI joint spaces are well-maintained. There are moderate degenerative changes at the lumbosacral junction. I see no evidence of acute fracture or subluxation. SOFT TISSUES: No significant abnormality. ADDITIONAL FINDINGS: None. CT HEAD WITHOUT CONTRAST INDICATION / CLINICAL INFORMATION: frequent falls, headache, hit head, dizzy. TECHNIQUE: All CT scans at this location are performed using CT dose reduction for ALARA by means of automated exposure control. COMPARISON: MRI lumbar spine 04/04/2021 FINDINGS: HEMORRHAGE: No evidence of intracranial hemorrhage or extra-axial fluid collection. EXTRA-AXIAL SPACES: Focal dilatation of cortical sulci is observed along the lateral convexity of the right frontal lobe secondary to remote right MCA infarction. Elsewhere the cortical sulci, sylvian fissures and basilar cisterns have an unremarkable appearance. VENTRICULAR SYSTEM: The third and lateral ventricles are of normal size and configuration. CEREBRAL PARENCHYMA: Large area of encephalomalacia is observed in the right frontal lobe secondary to remote right MCA infarction. Periventricular and deep white matter lucencies noted consistent with microvascular ischemic change. No additional areas of abnormal brain parenchymal attenuation are identified. MIDLINE SHIFT OR HERNIATION: There is no mass effect. CEREBELLUM / BRAINSTEM: Brainstem and cerebellum have an unremarkable appearance. MIDLINE STRUCTURES:No abnormalities of the pituitary gland or pineal region are identified. INTRACRANIAL VESSELS:No abnormalities are identified on this noncontrast head CT. ORBITS: Bilateral enlargement of the lacrimal glands is noted. Are there signs or symptoms of sjogren's syndrome SOFT TISSUES of HEAD: No significant abnormality. CALVARIUM: Evaluation of bone windows reveals no abnormalities. PARANASAL SINUSES / MASTOID AIR CELLS: Visualized portions of the paranasal sinuses are free from inflammatory mucosal disease. Mastoid air cells are normally pneumatized. ADDITIONAL FINDINGS: None. IMPRESSION: 1. Remote right MCA infarction. 2. No acute intracranial abnormality. 3. Bilateral lacrimal gland enlargement. CT MAXILLOFACIAL WITHOUT CONTRAST INDICATION / CLINICAL INFORMATION: frequent falls, right mandible pain. TECHNIQUE: All CT scans at this location are performed using CT dose reduction for ALARA by means of automated exposure control. COMPARISON: None available. FINDINGS: FACIAL BONES: No fracture or other significant abnormality. The mandible is intact. TURN LASTER SPACES:Evaluation of the certified medical dosimetrist space structures reveal no abnormalities. SALIVARY GLANDS: Parotid and submandibular salivary glands have an unremarkable appearance. PARANASAL SINUSES: No significant abnormality. NASAL CAVITY: No abnormality. ORBITS: Bilateral lacrimal gland enlargement. No additional abnormality. TEMPORAL BONES:Visualized mastoid air cells and the middle ear cavities are normally pneumatized. VISUALIZED INTRACRANIAL STRUCTURES: Refer to CT head dictated separately. IMPRESSION: 1. No indication of facial fracture. 2. Widespread dental caries and periodontal disease. - Medical Decision Making Patient is a 65-year-old female that presents emergency room with complaints of multiple falls over the last 3 to 4 days. Patient states she is having generalized weakness. Patient dates she had a recent stroke. Patient had labs done which were essentially unremarkable except for elevated blood sugar and UTI. Patient given IV antibiotics. Patient had multiple diagnostics done due to the complaints and the falls. Patient had a CT scan of lumbar spine which was negative for acute findings. Patient had a CT scan of the facial bones and he ad/brain which both showed no fractures or acute findings. CT of the head does show the old stroke. Patient had a hip x-ray which was negative for acute findings and fracture. I personally reviewed the hip x-ray. Patient had an EKG which is negative for acute findings or normal ST. I personally reviewed EKG. Patient admitted to the hospital service for further evaluation treatment. Critical care time documented due to the multiple reassessments, prolonged time at the bedside, interpretation of diagnostics and labs. - Differential Diagnosis Falls, UTI, weakness, strain, brain, fracture, contusion, Critical Care Time: Yes Critical care time in (mins) excluding proc time.: 35 Critical care attestation.: If time is entered above; I have spent that time in minutes in the direct care of this critically ill patient, excluding procedure time. Critical Care Time: 35 minutes ED Disposition Clinical Impression: Weakness, Multiple falls UTI (urinary tract infection) Qualifiers: Urinary tract infection type: acute cystitis Hematuria presence: with hematuria Qualified Code(s): N30.01 - Acute cystitis with hematuria Chest pain Qualifiers: Chest pain type: unspecified Qualified Code(s): R07.9 - Chest pain, unspecified Disposition: DC-09 OP ADMIT IP TO THIS HOSP Is pt being admited?: Yes Does the pt Need Aspirin: No Condition: Critical Time of Disposition: 22:05
[2021-04-19] MEDS ORDERED: ONDANSETRON 4 MG/2 ML INJ IV ONE (22:03)
[2021-04-19] MEDS ORDERED: HYDROmorphone 1 MG/1 ML INJ IV ONE (22:03)
[2021-04-19] MEDS ORDERED: MAGNESIUM HYDROXIDE (MOM) ORAL LIQD UDC PO PRN (22:35)
[2021-04-19] MEDS ORDERED: DEXTROSE 50% IN WATER (25GM) 50 ML SYRINGE IV PRN (22:35)
[2021-04-19] MEDS ORDERED: METOCLOPRAMIDE 10 MG/2 ML INJ IV PRN (22:35)
[2021-04-19] MEDS ORDERED: ACETAMINOPHEN 325 MG TAB PO PRN (22:35)
[2021-04-19] MEDS ORDERED: HYDROmorphone 2 MG/1 ML INJ IV ONE (23:23)
--- NOTE | 2021-04-19 23:55 | History and Physical Report ---
History of Present Illness Date of examination: 04/19/21 Date of admission: 04/19/2021 Chief complaint: recent fall History of present illness: 65-year-old -[place] female with history of recent CVA (03/2021), hypertension, CHF, DM 2, arthritis, asthma, tobacco use who presents [facility] ED with complaints of multiple falls x3 to 4 days. Patient states she has been experiencing lightheadedness, and loss of balance which has caused her to have multiple falls over the past few days. She states that the falls are " too many to count". Endorses hitting her face on the bathroom floor and now complains of facial pain and lower back pain. She describes her pain as aching, constant and rates it 10/10. The pain is improved with rest and aggravated with movement and palpation. Additionally she complains of pain with urination and discoloration of urine. She states that her urine looks like " dark beer". Review of medical record shows patient was admitted twice in the month of March (2020) for CVA. On both occasion patient was seen and evaluated by neurology, who advised patient to follow-up as outpatient in 2 to 3 months. Denies nausea, vomiting, fever, chills, hematuria, hematochezia, melena, cough, abdominal pain, or recent sick contacts Past History Past Medical History: diabetes, heart failure, hypertension, hyperlipidemia, stroke, other (Asthma,) Past Surgical History: Other (Left lower quadrant colostomy) Social history: lives with family (With daughter), smoking (Smokes half a pack to a pack per day), full code. denies: alcohol abuse, prescription drug abuse, IV drug use Family history: hypertension Medications and Allergies Allergies Allergy/AdvReac Type Severity Reaction Status Date / Time Penicillins Allergy Swelling Verified 04/19/21 18:25 Home Medications Medication Instructions Recorded Confirmed Last Taken Type Nicotine [Habitrol] 14 mg TD QDAY #30 patch 07/23/19 04/07/21 Unknown Rx Aspirin 325 mg PO QDAY #30 tablet 03/15/21 04/07/21 Unknown Rx Insulin NPH/Regular [NovoLIN 70/30] 36 unit SUB-Q BIDDIAB #20 ml 03/15/21 04/07/21 Unknown Rx traMADoL [Ultram 50 MG tab] 50 mg PO Q6HR PRN #12 tablet 03/29/21 04/07/21 Unknown Rx Aspirin 325 mg PO QDAY #90 tablet 04/06/21 Unknown Rx AtorvaSTATin [Lipitor] 80 mg PO QHS #60 tab 04/06/21 Unknown Rx AtorvaSTATin [Lipitor] 80 mg PO QHS #60 tablet 04/06/21 Unknown Rx Baclofen 20 mg PO Q8H PRN #24 tablet 04/06/21 Unknown Rx Clopidogrel [Plavix] 75 mg PO QDAY #90 tablet 04/06/21 Unknown Rx Famotidine [Pepcid] 20 mg PO BID #60 tablet 04/06/21 Unknown Rx Gabapentin 600 mg PO Q8HR #90 cap 04/06/21 Unknown Rx Insulin NPH/Regular [NovoLIN 70/30] 24 unit SUB-Q BIDDIAB units 04/06/21 Unknown Rx Lispro Insulin [HumaLOG] 0 unit SUB-Q ACHS units 04/06/21 Unknown Rx Metoclopramide [Reglan TAB] 10 mg PO Q6H PRN tablet 04/06/21 Unknown Rx traZODone [Desyrel] 50 mg PO QHS PRN tablet 04/06/21 Unknown Rx Active Meds: Active Medications Acetaminophen (Acetaminophen 325 Mg Tab) 650 mg PO Q4H PRN PRN Reason: Pain MILD(1-3)/Fever >100.5/BRIDGES Aspirin (Aspirin 325 Mg Tab) 325 mg PO QDAY [facility] Atorvastatin Calcium (Atorvastatin 40 Mg Tab) 80 mg PO QHS [facility] Bisacodyl (Bisacodyl 10 Mg Rect Supp) 10 mg ND QDAY PRN PRN Reason: Constipation Clopidogrel Bisulfate (Clopidogrel 75 Mg Tab) 75 mg PO QDAY [facility] Dextrose (Dextrose 50% In Water (25gm) 50 Ml Syringe) 0 ml IV Q30MIN PRN; Protocol PRN Reason: Hypoglycemia Docusate Sodium (Docusate Sodium 100 Mg Cap) 100 mg PO BID [facility] Famotidine (Famotidine 20 Mg Tab) 20 mg PO BID [facility] Levofloxacin/Dextrose (Levaquin 500mg/100ml) 500 mg in 100 mls @ 100 mls/hr IV Q24HR [facility]; Protocol Insulin Glargine (Insulin Glargine 100 Units/Ml) 10 units SUB-Q QAMDIAB [facility] Insulin Human Lispro (Insulin Lispro 100 Unit/Ml) 0 unit SUB-Q ACHS [facility]; Protocol Magnesium Hydroxide (Magnesium Hydroxide (Mom) Oral Liqd Udc) 30 ml PO Q4H PRN PRN Reason: Constipation Metoclopramide HCl (Metoclopramide 10 Mg/2 Ml Inj) 10 mg IV Q6H PRN PRN Reason: Nausea And Vomiting Nicotine (Nicotine 14 Mg/24 Hr Patch) 14 mg TD QDAY [facility] Ondansetron HCl (Ondansetron 4 Mg/2 Ml Inj) 4 mg IV Q6H PRN PRN Reason: Nausea And Vomiting Sodium Chloride (Sodium Chloride 0.9% 10 Ml Flush Syringe) 10 ml IV BID [facility] Sodium Chloride (Sodium Chloride 0.9% 10 Ml Flush Syringe) 10 ml IV PRN PRN PRN Reason: LINE FLUSH Review of Systems All systems: negative (As noted in HPI) Exam - Physical Exam Narrative exam: Physical exam General appearance: Present: No acute distress, alert and oriented 3, - Bulgarian adult - EENT Eyes: Present: PERRL, EOM intact ENT: hearing intact, missing teeth, left sided facial droop (patient unsure whether this is new or chronic from previous CVA) - Neck Neck: Present: supple, normal ROM - Respiratory Respiratory effort: Non-labored Respiratory: Clear throughout - Cardiovascular Heart rate: 102 (bpm) Rhythm: Sinus tachycardia Heart Sounds: Present: S1 & S2. Absent: rub, click - Extremities Extremities: no ischemia, pulses intact, - Peripheral Assessment Peripheral Pulses: within normal limits - Abdominal General gastrointestinal: soft, non-tender, normal bowel sounds, left lower quadrant colostomy - Integumentary Integumentary: Present: warm, dry, sacral decubitus ulcer - Musculoskeletal Musculoskeletal: Able to move all extremities, able to move against gravity and resistance -Neurological Neurological: CN II-XII intact - Psychiatric Psychiatric: cooperative - Constitutional Vitals: Temp Pulse Resp BP Pulse Ox 98.7 F 94 H 13 122/48 98 04/19/21 18:30 04/19/21 21:30 04/19/21 21:30 04/19/21 21:30 04/19/21 21:30 HEART Score - HEART Score Troponin: Troponin T < 0.010 ng/mL (0.00-0.029) 04/19/21 22:53 Results - Labs CBC & Chem 7: 04/19/21 19:40 04/19/21 19:40 Labs: Laboratory Last Values WBC 10.4 K/mm3 (4.5-11.0) 04/19/21 19:40 RBC 5.02 M/mm3 (3.65-5.03) 04/19/21 19:40 Hgb 16.2 gm/dl (10.1-14.3) H 04/19/21 19:40 Hct 47.6 % (30.3-42.9) H 04/19/21 19:40 MCV 95 fl (79-97) 04/19/21 19:40 MCH 32 pg (28-32) 04/19/21 19:40 MCHC 34 % (30-34) 04/19/21 19:40 RDW 14.3 % (13.2-15.2) 04/19/21 19:40 Plt Count 267 K/mm3 (140-440) 04/19/21 19:40 Lymph % (Auto) 24.8 % (13.4-35.0) 04/19/21 19:40 Hendricks % (Auto) 5.8 % (0.0-7.3) 04/19/21 19:40 Eos % (Auto) 0.6 % (0.0-4.3) 04/19/21 19:40 Baso % (Auto) 1.2 % (0.0-1.8) 04/19/21 19:40 Lymph # (Auto) 2.6 K/mm3 (1.2-5.4) 04/19/21 19:40 Hendricks # (Auto) 0.6 K/mm3 (0.0-0.8) 04/19/21 19:40 Eos # (Auto) 0.1 K/mm3 (0.0-0.4) 04/19/21 19:40 Baso # (Auto) 0.1 K/mm3 (0.0-0.1) 04/19/21 19:40 Seg Neutrophils % 67.6 % (40.0-70.0) 04/19/21 19:40 Seg Neutrophils # 7.0 K/mm3 (1.8-7.7) 04/19/21 19:40 PT 13.0 Sec. (12.2-14.9) 04/19/21 19:40 INR 0.92 (0.87-1.13) 04/19/21 19:40 APTT 24.2 Sec. (24.2-36.6) 04/19/21 19:40 Sodium 141 mmol/L (137-145) 04/19/21 19:40 Potassium 3.8 mmol/L (3.6-5.0) 04/19/21 19:40 Chloride 103.0 mmol/L (98-107) 04/19/21 19:40 Carbon Dioxide 28 mmol/L (22-30) 04/19/21 19:40 Anion Gap 14 mmol/L 04/19/21 19:40 BUN 13 mg/dL (7-17) 04/19/21 19:40 Creatinine 0.7 mg/dL (0.6-1.2) 04/19/21 19:40 Estimated GFR > 60 ml/min 04/19/21 19:40 BUN/Creatinine Ratio 19 % 04/19/21 19:40 Glucose 269 mg/dL (65-100) H 04/19/21 19:40 Calcium 9.1 mg/dL (8.4-10.2) 04/19/21 19:40 Total Bilirubin 0.30 mg/dL (0.1-1.2) 04/19/21 19:40 AST 28 units/L (5-40) 04/19/21 19:40 ALT 44 units/L (7-56) 04/19/21 19:40 Alkaline Phosphatase 127 units/L (35-129) 04/19/21 19:40 Troponin T < 0.010 ng/mL (0.00-0.029) 04/19/21 22:53 Total Protein 7.2 g/dL (6.3-8.2) 04/19/21 19:40 Albumin 3.7 g/dL (3.9-5) L 04/19/21 19:40 Albumin/Globulin Ratio 1.1 % 04/19/21 19:40 Urine Color Yellow (Yellow) 04/19/21 21:34 Urine Turbidity Cloudy (Clear) 04/19/21 21:34 Urine pH 5.0 (5.0-7.0) 04/19/21 21:34 Ur Specific Dayhoit 1.025 (1.003-1.030) 04/19/21 21:34 Urine Protein 30 mg/dl mg/dL (Negative) 04/19/21 21:34 Urine Glucose (UA) >=500 mg/dL (Negative) 04/19/21 21:34 Urine Ketones Neg mg/dL (Negative) 04/19/21 21:34 Urine Blood Sm (Negative) 04/19/21 21:34 Urine Nitrite Neg (Negative) 04/19/21 21:34 Urine Bilirubin Neg (Negative) 04/19/21 21:34 Urine Urobilinogen < 2.0 mg/dL (<2.0) 04/19/21 21:34 Ur Leukocyte Esterase Neg (Negative) 04/19/21 21:34 Urine WBC (Auto) 36.0 /HPF (0.0-6.0) H 04/19/21 21:34 Urine RBC (Auto) 59.0 /HPF (0.0-6.0) 04/19/21 21:34 U Epithel Cells (Auto) 6.0 /HPF (0-13.0) 04/19/21 21:34 Urine Bacteria (Auto) 1+ /HPF (Negative) 04/19/21 21:34 Urine Mucus Few /HPF 04/19/21 21:34 Urine Yeast (Budding) Few /HPF 04/19/21 21:34 - Imaging and Cardiology Chest x-ray: image reviewed CT Scan - head: report reviewed, image reviewed - Diagnostic Impressions Diagnostic Impressions: CT Face: FINDINGS: FACIAL BONES: No fracture or other significant abnormality. The mandible is intact. CASINO SUPERVISOR SPACES:Evaluation of the shank boner space structures reveal no abnormalities. SALIVARY GLANDS: Parotid and submandibular salivary glands have an unremarkable appearance. PARANASAL SINUSES: No significant abnormality. NASAL CAVITY: No abnormality. ORBITS: Bilateral lacrimal gland enlargement. No additional abnormality. TEMPORAL BONES:Visualized mastoid air cells and the middle ear cavities are normally pneumatized. VISUALIZED INTRACRANIAL STRUCTURES: Refer to CT head dictated separately. IMPRESSION: 1. No indication of facial fracture. 2. Widespread dental caries and periodontal disease. CT Head: FINDINGS: HEMORRHAGE: No evidence of intracranial hemorrhage or extra-axial fluid collection. EXTRA-AXIAL SPACES: Focal dilatation of cortical sulci is observed along the lateral convexity of the right frontal lobe secondary to remote right MCA infarction. Elsewhere the cortical sulci, sylvian fissures and basilar cisterns have an unremarkable appearance. VENTRICULAR SYSTEM: The third and lateral ventricles are of normal size and configuration. CEREBRAL PARENCHYMA: Large area of encephalomalacia is observed in the right frontal lobe secondary to remote right MCA infarction. Periventricular and deep white matter lucencies noted consistent with microvascular ischemic change. No additional areas of abnormal brain parenchymal attenuation are identified. MIDLINE SHIFT OR HERNIATION: There is no mass effect. CEREBELLUM / BRAINSTEM: Brainstem and cerebellum have an unremarkable appearance. MIDLINE STRUCTURES:No abnormalities of the pituitary gland or pineal region are identified. INTRACRANIAL VESSELS:No abnormalities are identified on this noncontrast head CT. ORBITS: Bilateral enlargement of the lacrimal glands is noted. Are there signs or symptoms of sjogren's syndrome SOFT TISSUES of HEAD: No significant abnormality. CALVARIUM: Evaluation of bone windows reveals no abnormalities. PARANASAL SINUSES / MASTOID AIR CELLS: Visualized portions of the paranasal sinuses are free from inflamm atory mucosal disease. Mastoid air cells are normally pneumatized. ADDITIONAL FINDINGS: None. IMPRESSION: 1. Remote right MCA infarction. 2. No acute intracranial abnormality. 3. Bilateral lacrimal gland enlargement. Right Hip XR: RIGHT HIP 2 VIEWS INDICATION / CLINICAL INFORMATION: Fall with right hip pain. COMPARISON: None available. FINDINGS: BONES / JOINT(S): The hip and SI joint spaces are well-maintained. There are moderate degenerative changes at the lumbosacral junction. I see no evidence of acute fracture or subluxation. SOFT TISSUES: No significant abnormality. ADDITIONAL FINDINGS: None. CT L-Spine FINDINGS: ALIGNMENT: Grade 1 spondylolisthesis is noted at the L4-5 level. This is on a degenerative basis. Alignment is otherwise normally maintained. There is no indication of traumatic subluxation. VERTEBRAE: No indication of fracture. DISC SPACES: Loss of disc height and disc vacuum phenomena are noted at the L1- 2, L2-3 and L3-4 levels. DEGENERATIVE CHANGES: Broad-based disc bulge and facet arthropathy contribute to mild central canal stenosis at L2-3, moderate central canal stenosis at L3-4. Spondylolisthesis and facet arthropathy and thickening of ligamentum flavum contribute to severe central canal stenosis at L4-5. Widespread facet arthropathy is present throughout the lumbar region. SPINAL CANAL: Central spinal canal is adequate in size throughout the lumbar region. SACRUM:No significant abnormality of the visualized sacrum.. Bilateral sacroiliac joint vacuum phenomena is noted. PARASPINAL SOFT TISSUES: No significant abnormality. IMPRESSION: 1. Degenerative grade 1 spondylolisthesis and facet arthropathy contribute to severe central canal stenosis at L4-5. 2. Milder central canal stenosis is observed at the L2-3 and L3-4 levels. 3. No indication of fracture or traumatic subluxation. Assessment and Plan Assessment and plan: 65-year-old -Bul[place]ian female with history of recent CVA (03/2021), hypertension, CHF, DM 2, arthritis, asthma, tobacco use who presents [facility] ED with complaints of multiple falls x3 to 4 days. Patient states she has been experiencing lightheadedness, and loss of balance which has caused her to have multiple falls over the past few days. She states that the falls are " too many to count". Endorses hitting her face on the bathroom floor and now complains of facial pain and lower back pain. She describes her pain as aching, constant and rates it 10/10. The pain is improved with rest and aggravated with movement and palpation. Additionally she complains of pain with urination and discoloration of urine. She states that her urine looks like " dark beer". Review of medical record shows patient was admitted twice in the month of March (2020) for CVA. On both occasion patient was seen and evaluated by neurology, who advised patient to follow-up as outpatient in 2 to 3 months. Denies nausea, vomiting, fever, chills, hematuria, hematochezia, melena, cough, abdominal pain, or recent sick contacts Urinary tract infection -UA positive for UTI -urine wbc 36 -Complains of dysuriax2-3 -Urine culture pending -on IV Abx Multiple recent falls -Complains of multiple falls in the past 3 to 4 days with pain to face and back, and unsteady gait -CT L-spine, CT head, CT face all negative for acute abnormalities -Initiate fall precautions -PT OT eval pending -Neuro check -MRI pending -Inpatient neurology consulted History of CVA -Admitted in 03/2021 for CVA -On ASA, Plavix, statin -Advised to follow-up with outpatient neurology in 2 to 3 months DM2 -With hyperglycemia -BG on admission 269 -POC BG monitoring -Schedule Lantus and SSI coverage prn -HgbA1C pending HTN -Monitor BP -Resume home hypertensive meds Tobacco abuse -Reports smoking a half a pack to a pack daily -Counseled for cessation for 10 minutes -Nicotine patch when necessary Sacral ulcer -Present on admission -Wound care consult pending Advance Directives: No VTE prophylaxis?: Chemical, Mechanical Plan of care discussed with patient/family: Yes
[2021-04-20] MEDS ORDERED: HYDROmorphone 1 MG/1 ML INJ IV ONE (00:49)
[2021-04-20 06:27] LABS: Chol/HDL Ratio 3.38 %
[2021-04-20] MEDS: ONDANSETRON 4 MG/2 ML INJ IV PRN ×2 (08:00→14:22)
[2021-04-20] MEDS ORDERED: INSULIN GLARGINE 100 UNITS/ML SUB-Q SCH (08:00)
[2021-04-20] MEDS: MORPHINE 2 MG/1 ML INJ IV PRN ×4 (08:00→22:32)
[2021-04-20] MEDS: INSULIN LISPRO 100 UNIT/ML SUB-Q SCH ×4 (08:51→23:58)
[2021-04-20] MEDS ORDERED: NON-FORMULARY EACH (Baclofen [Baclofen] 20 MG Tablet) PO PRN (10:06)
--- NOTE | 2021-04-20 10:35 | Consultation ---
History of Present Illness Consult date: 04/20/21 Reason for Consult: Falls History of present illness: 65-year-old -Eritre[place] female with history of recent CVA (03/2021), hypertension, CHF, DM 2, arthritis, asthma, tobacco use who presents [facility] ED with complaints of multiple falls x3 to 4 days. Patient states she has been experiencing lightheadedness, and loss of balance which has caused her to have multiple falls over the past few days. She states that the falls are " too many to count". Endorses hitting her face on the bathroom floor and now complains of facial pain and lower back pain. She describes her pain as aching, constant and rates it 10/10. The pain is improved with rest and aggravated with movement and palpation. Additionally she complains of pain with urination and discoloration of urine. She states that her urine looks like " dark beer". Review of medical record shows patient was admitted twice in the month of March (2020) for CVA. On both occasion patient was seen and evaluated by neurology, who advised patient to follow-up as outpatient in 2 to 3 months. Denies nausea, vomiting, fever, chills, hematuria, hematochezia, melena, cough, abdominal pain, or recent sick contacts The patient is being evaluated via video call . The patient reports fall following the hospital course . The patient has right hemiparesis. Past History Past Medical History: diabetes, heart failure, hypertension, hyperlipidemia, [place] [facility], other (Asthma,) Past Surgical History: Other (Left lower quadrant colostomy) Social history: lives with family (With daughter), smoking (Smokes half a pack to a pack per day), full code. denies: alcohol abuse, prescription drug abuse, IV drug use Family history: hypertension Medications and Allergies Allergies Allergy/AdvReac Type Severity Reaction Status Date / Time Penicillins Allergy Swelling Verified 04/19/21 18:25 Home Medications Medication Instructions Recorded Confirmed Last Taken Type Nicotine [Habitrol] 14 mg TD QDAY #30 patch 07/23/19 04/07/21 Unknown Rx Aspirin 325 mg PO QDAY #30 tablet 03/15/21 04/07/21 Unknown Rx Insulin NPH/Regular [NovoLIN 70/30] 36 unit SUB-Q BIDDIAB #20 ml 03/15/21 04/07/21 Unknown Rx traMADoL [Ultram 50 MG tab] 50 mg PO Q6HR PRN #12 tablet 03/29/21 04/07/21 Unknown Rx Aspirin 325 mg PO QDAY #90 tablet 04/06/21 Unknown Rx AtorvaSTATin [Lipitor] 80 mg PO QHS #60 tab 04/06/21 Unknown Rx AtorvaSTATin [Lipitor] 80 mg PO QHS #60 tablet 04/06/21 Unknown Rx Baclofen 20 mg PO Q8H PRN #24 tablet 04/06/21 Unknown Rx Clopidogrel [Plavix] 75 mg PO QDAY #90 tablet 04/06/21 Unknown Rx Famotidine [Pepcid] 20 mg PO BID #60 tablet 04/06/21 Unknown Rx Gabapentin 600 mg PO Q8HR #90 cap 04/06/21 Unknown Rx Insulin NPH/Regular [NovoLIN 70/30] 24 unit SUB-Q BIDDIAB units 04/06/21 Unknown Rx Lispro Insulin [HumaLOG] 0 unit SUB-Q ACHS units 04/06/21 Unknown Rx Metoclopramide [Reglan TAB] 10 mg PO Q6H PRN tablet 04/06/21 Unknown Rx traZODone [Desyrel] 50 mg PO QHS PRN tablet 04/06/21 Unknown Rx Active Meds: Active Medications Acetaminophen (Acetaminophen 325 Mg Tab) 650 mg PO Q4H PRN PRN Reason: Pain MILD(1-3)/Fever >100.5/BRIDGES Aspirin (Aspirin 325 Mg Tab) 325 mg PO QDAY [facility] Atorvastatin Calcium (Atorvastatin 40 Mg Tab) 80 mg PO QHS [facility] Baclofen (Baclofen 10 Mg Tab) 20 mg PO Q8H PRN PRN Reason: Muscle Spasm Bisacodyl (Bisacodyl 10 Mg Rect Supp) 10 mg [place] QDAY PRN PRN Reason: Constipation Clopidogrel Bisulfate (Clopidogrel 75 Mg Tab) 75 mg PO QDAY [facility] Dextrose (Dextrose 50% In Water (25gm) 50 Ml Syringe) 0 ml IV Q30MIN PRN; Protocol PRN Reason: Hypoglycemia Docusate Sodium (Docusate Sodium 100 Mg Cap) 100 mg PO BID [facility] Famotidine (Famotidine 20 Mg Tab) 20 mg PO BID [facility] Gabapentin (Gabapentin 300 Mg Cap) 600 mg PO Q8HR [facility] Levofloxacin/Dextrose (Levaquin 500mg/100ml) 500 mg in 100 mls @ 100 mls/hr IV Q24HR [facility]; Protocol Insulin Glargine (Insulin Glargine 100 Units/Ml) 10 units SUB-Q QAMDIAB [facility] Insulin Human Isoph/Insulin Regular (Insulin Nph/Regular 70/30 Inj) 15 unit SUB-Q BIDDIAB [facility] Insulin Human Lispro (Insulin Lispro 100 Unit/Ml) 0 unit SUB-Q ACHS [facility]; Protocol Last Admin: 04/20/21 08:51 Dose: 4 unit Documented by: Magnesium Hydroxide (Magnesium Hydroxide (Mom) Oral Liqd Udc) 30 ml PO Q4H PRN PRN Reason: Constipation Metoclopramide HCl (Metoclopramide 10 Mg/2 Ml Inj) 10 mg IV Q6H PRN PRN Reason: Nausea And Vomiting Morphine Sulfate (Morphine 2 Mg/1 Ml Inj) 2 mg IV Q3H PRN PRN Reason: Pain, Moderate (4-6) Last Admin: 04/20/21 08:00 Dose: 2 mg Documented by: Nicotine (Nicotine 14 Mg/24 Hr Patch) 14 mg TD QDAY [facility] Ondansetron HCl (Ondansetron 4 Mg/2 Ml Inj) 4 mg IV Q6H PRN PRN Reason: Nausea And Vomiting Last Admin: 04/20/21 08:00 Dose: 4 mg Documented by: Sodium Chloride (Sodium Chloride 0.9% 10 Ml Flush Syringe) 10 ml IV BID [facility] Sodium Chloride (Sodium Chloride 0.9% 10 Ml Flush Syringe) 10 ml IV PRN PRN PRN Reason: LINE FLUSH Physical Examination - Vital Signs Vital Signs: Vital Signs Temp Pulse Resp BP Pulse Ox 98.7 F 108 H 20 174/103 96 04/19/21 18:30 04/19/21 18:30 04/19/21 18:30 04/19/21 18:30 04/19/21 18:30 - Physical Exam Narrative exam: The patient is alert , moves all 4 extremites , some weakness is noted on right upper extremityb , LE is 3+/5 Bilateral - Gait cannot be tested. Results - Laboratory Findings CBC and BMP: 04/19/21 19:40 04/19/21 19:40 Abnormal Lab Findings: Abnormal Labs 04/19/21 04/19/21 04/19/21 19:40 19:40 21:34 Hgb 16.2 H Hct 47.6 H Glucose 269 H POC Glucose Hemoglobin A1c Albumin 3.7 L Triglycerides HDL Cholesterol Urine WBC (Auto) 36.0 H 04/19/21 04/20/21 04/20/21 22:53 04:53 07:50 Hgb Hct Glucose POC Glucose 268 H Hemoglobin A1c 11.4 H Albumin Triglycerides 151 H HDL Cholesterol 36 L Urine WBC (Auto) Assessment and Plan 1. Falls ( In the differential diagnosis rule out Cervical Spinal Stenosis ). 2. CVA Plan 1. Awaits MRI Brain + MRI Cervical will add. 2. PT for Gait and Balance 3. Inpatient Rehabilitation 4. Follow up results . Dr. Ayesha MAURICIO
[2021-04-20] MEDS ORDERED: BACLOFEN 10 MG TAB PO PRN (11:00)
[2021-04-20] MEDS: ASPIRIN 325 MG TAB PO SCH (11:53)
[2021-04-20] MEDS: FAMOTIDINE 20 MG TAB PO SCH ×2 (11:53→22:37)
[2021-04-20] MEDS: NICOTINE 14 MG/24 HR PATCH TD SCH (11:53)
[2021-04-20] MEDS: DOCUSATE SODIUM 100 MG CAP PO SCH ×2 (11:53→22:36)
[2021-04-20] MEDS: CLOPIDOGREL 75 MG TAB PO SCH (11:53)
[2021-04-20] MEDS: INSULIN NPH/REGULAR 70/30 INJ SUB-Q SCH ×2 (11:54→17:57)
--- NOTE | 2021-04-20 14:21 | Magnetic Resonance Report ---
MR brain wo/w con INDICATION / CLINICAL INFORMATION: 65 years Female; frequent falls, hx recent cva. TECHNIQUE: Multiplanar, multisequence MR images of the brain were obtained. COMPARISON: The study is compared to previous MRI of 04/04/2021. FINDINGS: BRAIN / INTRACRANIAL CONTENTS: There is continued encephalomalacia involving right frontal lobe monica tible with old infarct at. There is continued surrounding laminar necrosis which results in susceptib ility artifact on the diffusion imaging and correlates with the previous exam. The findings also yoseph elate with developing ovarian degeneration. There is otherwise moderate to cerebral and pontine white matter disease most consistent with microvascular angiopathy. The diffusion imaging reveals no clear evidence of acute infarction. The ventricular system appears unchanged in size and configuration. No developing extra-axial fluid c ollections or significant mass effect is identified. There is some a peripheral enhancement along the infarct which appears to be vascular in origin. Otherwise, no intracranial enhancing lesions are lissa reciated at. CRANIOCERVICAL JUNCTION: No significant abnormality. VASCULAR FLOW-VOIDS: No significant abnormality. ORBITS: No significant abnormality of visualized orbits. SINUSES / MASTOIDS: No significant abnormality in the visualized paranasal sinuses or mastoid air yari ls. ADDITIONAL FINDINGS: None. IMPRESSION: 1. There have been continued a evolutionary changes of the infarct involving right frontal lobe with encephalomalacia as detailed above. There is otherwise moderate microvascular angiopathy without evid ence of acute infarction. Signer Name: David Palmer MD Signed: 04/20/2021 2:15 PM Workstation Name: [id number]
[2021-04-20] MEDS: GABAPENTIN 300 MG CAP PO SCH ×2 (14:22→22:37)
--- NOTE | 2021-04-20 15:50 | Magnetic Resonance Report ---
MR cervical spine wo con INDICATION / CLINICAL INFORMATION: 65 years Female; Spianl Cord Compression. TECHNIQUE: Multisequence, multiplanar images of the cervical spine were obtained. COMPARISON: None available. FINDINGS: CRANIOCERVICAL JUNCTION:No significant abnormality. ALIGNMENT: There is no significant spondylolisthesis of the cervical spine. VERTEBRAE:The motion degrades the image quality. However, there is disc space narrowing with mild end plate changes at C6-7 and C7-T1. Milder findings are noted anteriorly at C5-6. However, there is no s ignificant edema of the cervical vertebral bodies. VISUALIZED SPINAL CORD: The cervical spinal cord appears to grossly demonstrate appropriate signal in tensity on the combination of sequences. [id number] ANALYSIS: C2-3: No significant abnormality. C3-4: There is a slight disc bulge without significant central spinal stenosis. There is mild left ne ural foraminal narrowing at. C4-5: The broad-based disc bulge and ligamentum flavum hypertrophy efface the subarachnoid space with minimal encroachment on the cord. Additionally, there is moderate to marked right and moderate left foraminal narrowing at. C5-6: The spondylosis also minimally encroaches on the ventral cord at this level. There is moderate to marked left neural foraminal narrowing. C6-7: The broad-based disc bulge appears to slightly flatten the ventral cord at. There is marked lef t and milder right neural foraminal narrowing. C7-T1: The spondylosis effaces the ventral subarachnoid space without ossific and direct cord bony natasha. There is mild to moderate foraminal narrowing, greater on the left. PARASPINAL SOFT TISSUES: No significant abnormality. ADDITIONAL FINDINGS: No epidural collections are identified. IMPRESSION: 1. There are multilevel degenerative changes involving the cervical spine with posterior spondylosis and neural foraminal narrowing as detailed above. Signer Name: David Palmer MD Signed: 04/20/2021 3:46 PM Workstation Name: [id number]
--- NOTE | 2021-04-20 16:02 | Progress Note ---
Assessment and Plan 65-year-old -Faroese female with history of recent CVA (03/2021), hypertension, CHF, DM 2, arthritis, asthma, tobacco use who presents [facility] with complaints of multiple falls x3 to 4 days. Urinary tract infection -UA positive for UTI -urine wbc 36 -Complains of dysuriax2-3 -Urine culture pending -Continue on IV Abx Multiple recent falls -Complains of multiple falls in the past 3 to 4 days with pain to face and back, and unsteady gait -CT L-spine, CT head, CT face all negative for acute abnormalities -Initiate fall precautions -PT OT eval pending -Neuro check -MRI pending -Inpatient neurology consulted History of CVA -Admitted in 03/2021 for CVA -On ASA, Plavix, statin -Review of medical record shows patient was admitted twice in the month of March (2020) for CVA. On both occasion patient was seen and evaluated by neurology, who advised patient to follow-up as outpatient in 2 to 3 months. DM2 -With hyperglycemia -BG on admission 269 -POC BG monitoring -Schedule Lantus and SSI coverage prn -HgbA1C pending HTN -Monitor BP -Resume home hypertensive meds Tobacco abuse -Reports smoking a half a pack to a pack daily -Counseled for cessation for 10 minutes -Nicotine patch when necessary Sacral ulcer -Present on admission -Wound care consult pending Daily clinical course; 04/20/21: follow MRI result, PT eval, cont supportive care. Neurology consulted will follow recommendation Subjective Date of service: 04/20/21 Interval history: Patient seen and examined. Medical records and medication list reviewed. No acute event overnight noted by the RN. Patient denies any chest pain or difficulty breathing. Patient is tolerating diet. Patient complains of right-sided lower extremity pain and weakness MRI brain and PT eval pending Discussed plan of care at bedside with patient. Objective - Exam Narrative Exam: GENERAL: well-developed morbidly obese -Faroese female lying on bed appeared to be in no discomfort. HEENT: Normocephalic. Atraumatic. No conjunctival congestion or icterus. Patient has moist mucous membranes. NECK: Supple. Trachea midline. CHEST/LUNGS: Clear to auscultated bilaterally, breathing nonlabored. No wheezes crackles or rhonchi. HEART/CARDIOVASCULAR: Regular in rate and rhythm. S1 and S2 positive. ABDOMEN: Abdomen is soft, nontender. Patient has normal bowel sounds. SKIN: There is no rash. Warm and dry. NEURO: Right-sided weakness. Follows command. MUSCULOSKELETAL: No joint effusion or tenderness. EXTRIMITY: No edema, no cyanosis or clubbing. PSYCH: Cooperative. - Constitutional Vitals: Vital Signs - 12hr 04/20/21 04/20/21 04/20/21 05:09 08:15 11:45 Temperature 97.6 F 97.8 F 97.7 F Pulse Rate 89 92 H 90 Respiratory 18 20 20 Rate Blood Pressure 171/89 158/84 129/63 O2 Sat by Pulse 93 92 96 Oximetry 04/20/21 04/20/21 12:00 15:20 Temperature 98.3 F Pulse Rate 90 89 Respiratory 20 Rate Blood Pressure 111/72 O2 Sat by Pulse 100 Oximetry - Labs CBC & Chem 7: 04/21/21 04:35 04/21/21 04:35 Labs: Abnormal lab results 04/19/21 04/19/21 04/19/21 Range/Units 19:40 19:40 21:34 Hgb 16.2 H (10.1-14.3) gm/dl Hct 47.6 H (30.3-42.9) % Glucose 269 H (65-100) mg/dL POC Glucose (70-105) mg/dL Hemoglobin A1c (4-6) % Albumin 3.7 L (3.9-5) g/dL Triglycerides (2-149) mg/dL HDL Cholesterol (40-59) mg/dL Urine WBC (Auto) 36.0 H (0.0-6.0) /HPF 04/19/21 04/20/21 04/20/21 Range/Units 22:53 04:53 07:50 Hgb (10.1-14.3) gm/dl Hct (30.3-42.9) % Glucose (65-100) mg/dL POC Glucose 268 H (70-105) mg/dL Hemoglobin A1c 11.4 H (4-6) % Albumin (3.9-5) g/dL Triglycerides 151 H (2-149) mg/dL HDL Cholesterol 36 L (40-59) mg/dL Urine WBC (Auto) (0.0-6.0) /HPF 04/20/21 Range/Units 11:21 Hgb (10.1-14.3) gm/dl Hct (30.3-42.9) % Glucose (65-100) mg/dL POC Glucose 243 H (70-105) mg/dL Hemoglobin A1c (4-6) % Albumin (3.9-5) g/dL Triglycerides (2-149) mg/dL HDL Cholesterol (40-59) mg/dL Urine WBC (Auto) (0.0-6.0) /HPF HEART Score - HEART Score Troponin: Troponin T < 0.010 ng/mL (0.00-0.029) 04/19/21 22:53
[2021-04-21] MEDS: MORPHINE 2 MG/1 ML INJ IV PRN ×3 (05:10→15:05)
[2021-04-21] MEDS: GABAPENTIN 300 MG CAP PO SCH ×2 (05:11→13:03)
[2021-04-21 05:41] LABS: Basophils % (Auto) 0.4 % (0.0-1.8); Eosinophils % (Auto) 0.7 % (0.0-4.3); Hematocrit 43.8 % (30.3-42.9); Hemoglobin 14.5 gm/dl (10.1-14.3); Lymphocytes # (Auto) 1.5 K/mm3 (1.2-5.4); Lymphocytes % (Auto) 21.2 % (13.4-35.0); Mean Corpuscular HGB Conc 33 % (30-34); Mean Corpuscular Volume 96 fl (79-97); Monocytes # (Auto) 0.6 K/mm3 (0.0-0.8); Monocytes % (Auto) 8.5 % (0.0-7.3); Platelet Count 224 K/mm3 (140-440); Red Blood Count 4.55 M/mm3 (3.65-5.03); Red Cell Distribution Width 13.4 % (13.2-15.2)
[2021-04-21 06:05] LABS: Blood Urea Nitrogen 10 mg/dL (7-17); Calcium 8.9 mg/dL (8.4-10.2); Hemolysis Index 0
[2021-04-21 06:07] LABS: BUN/Creatinine Ratio 14
[2021-04-21 06:33] VITALS: BP 138/80
[2021-04-21] MEDS: INSULIN LISPRO 100 UNIT/ML SUB-Q SCH ×3 (08:30→17:42)
[2021-04-21] MEDS: INSULIN NPH/REGULAR 70/30 INJ SUB-Q SCH ×2 (09:17→17:42)
[2021-04-21] MEDS: ASPIRIN 325 MG TAB PO SCH (10:38)
[2021-04-21] MEDS: NICOTINE 14 MG/24 HR PATCH TD SCH (10:38)
[2021-04-21] MEDS: FAMOTIDINE 20 MG TAB PO SCH (10:39)
[2021-04-21] MEDS: CLOPIDOGREL 75 MG TAB PO SCH (10:39)
[2021-04-21] MEDS: DOCUSATE SODIUM 100 MG CAP PO SCH (10:39)
--- NOTE | 2021-04-21 11:31 | Discharge Summary ---
Providers - Providers Date of Admission: 04/19/21 22:05 Date of discharge: 04/21/21 Attending physician: TEA BATES 04/19/21 22:31 Consult to Physician [CONS] Routine Comment: Consulting Provider: CARMINE FREEMAN Physician Instructions: Reason For Exam: neuro deficits, hx cva 04/19/21 22:32 Occupational Therapy Evaluate and Treat [CONS] Routine Comment: Reason For Exam: neuro deficits, recent fall Physical Therapy Evaluation and Treat [CONS] Routine Comment: Reason For Exam: neuro deficits, recent fall Speech Therapy Evaluation and Treat [CONS] Routine Reason For Exam: eval, hx dysarthria 04/19/21 22:36 Consult to Case Management [CONS] Routine Services Needed at Discharge: Physical Therapy Occupational Therapy Notified:: family service caseworker Comment:: recent admisson ( 2 in last month) 04/19/21 23:49 Consult to Wound/ET Nurse [CONS] Routine Reason For Exam: wound eval, LLQ ostomy Primary care physician: HVAC MAINTENANCE TECHNICIAN Hospitalization Condition: Critical Pertinent studies: Face CT: 1. No indication of facial fracture. 2. Widespread dental caries and periodontal disease. head CT: 1. Remote right MCA infarction. 2. No acute intracranial abnormality. 3. Bilateral lacrimal gland enlargement. hip x-ray: No significant abnormality. lumbar spine CT: 1. Degenerative grade 1 spondylolisthesis and facet arthropathy contribute to severe central canal stenosis at L4-5. 2. Milder central canal stenosis is observed at the L2-3 and L3-4 levels. 3. No indication of fracture or traumatic subluxation. cervical spine MRI: 1. There are multilevel degenerative changes involving the cervical spine with posterior spondylosis and neural foraminal narrowing as detailed above. brain MRI 1. There have been continued a evolutionary changes of the infarct involving right frontal lobe with encephalomalacia. There is otherwise moderate microvascular angiopathy without evidence of acute infarction. Hospital course: 65-year-old -[place] female with history of recent CVA (03/2021), hypertension, CHF, DM 2, arthritis, asthma, tobacco use who presents [facility] ED with complaints of multiple falls x3 to 4 days. Patient states she has been experiencing lightheadedness, and loss of balance which has caused her to have multiple falls over the past few days. Review of medical record shows patient was admitted twice in the month of March (2020) for CVA. On both occasion patient was seen and evaluated by neurology, who advised patient to follow-up as outpatient in 2 to 3 months. Patient was admitted to the hospital and reevaluated with the CT head and brain MRI. Her brain MRI showed continued a evolutionary changes of the infarct i nvolving right frontal lobe with encephalomalacia. Patient was seen by neurology and recommended outpatient follow-up. Patient also evaluated by lumbar spine CT and cervical CT which showed central canal stenosis and degenerative changes. Patient was recommended to have follow-up with neurosurgeon as outpatient. Patient was treated with antibiotic for UTI. Discharge plan and management was thoroughly discussed with the patient and she verbalized understanding. PT recommended home health PT OT with roller walker. Patient was then discharged home in stable condition with outpatient follow-up. Disposition: [id number] HOME UNDER HOME [facility] Final Discharge Diagnosis (Prints w/discharge instructions): Recurrent fall due to physical debility from prior CVA. Urinary tract infection. Remote right sided CVA. Diabetes mellitus type 2. Hypertension. Tobacco abuse. Sacral decubitus ulcer, unstageable, POA Time spent for discharge: 34 minutes Core Measure Documentation - Palliative Care Palliative Care/ Comfort Measures: Not Applicable - Core Measures Any of the following diagnoses?: none Exam - Physical Exam Narrative exam: GENERAL: well-developed morbidly obese -[place]ine[place] female lying on bed appeared to be in no discomfort. HEENT: Normocephalic. Atraumatic. No conjunctival congestion or icterus. Patient has moist mucous membranes. NECK: Supple. Trachea midline. CHEST/LUNGS: Clear to auscultated bilaterally, breathing nonlabored. No wheezes crackles or rhonchi. HEART/CARDIOVASCULAR: Regular in rate and rhythm. S1 and S2 positive. ABDOMEN: Abdomen is soft, nontender. Patient has normal bowel sounds. SKIN: There is no rash. Warm and dry. NEURO: Right-sided weakness. Follows command. MUSCULOSKELETAL: No joint effusion or tenderness. EXTRIMITY: No edema, no cyanosis or clubbing. PSYCH: Cooperative. - Constitutional Vitals: Temp Pulse Resp BP Pulse Ox 98.2 F 84 22 138/80 98 04/21/21 06:31 04/21/21 06:31 04/21/21 06:31 04/21/21 06:31 04/21/21 06:31 Plan Activity: advance as tolerated Weight Bearing Status: Weight Bear as Tolerated Diet: low fat, low salt, diabetic Wound: keep clean and dry (f/u at wound care clinic ) Special Instructions: physical therapy, occupational therapy, home health RN (for medication monitoring and wound care) Durable Medical Equipment Needed Upon Discharge: Walker-Rolling Additional Instructions: Please be compliant with your medications. Blood glucose before every meal and at bedtime. Please take fall precaution and use roller walker Follow up with: PRIMARY CAREMD [Primary Care Provider] - 7 Days FREDRICK WOODS MD [Staff Physician] - 7 Days Prescriptions: AtorvaSTATin [Lipitor] 80 mg PO QHS #90 tablet amLODIPine 5 mg PO DAILY #30 tab Aspirin 325 mg PO QDAY #90 tablet Gabapentin 600 mg PO Q8HR #90 cap Lispro Insulin [HumaLOG] 0 unit SUB-Q ACHS 30 Days levoFLOXacin [Levaquin TAB] 500 mg PO QDAY #3 tablet Baclofen [Lioresal] 20 mg PO Q8H PRN #20 tablet PRN Reason: Muscle Spasm Insulin NPH/Regular [NovoLIN 70/30] 15 unit SUB-Q BIDDIAB 30 Days Famotidine [Pepcid] 20 mg PO BID #60 tablet Clopidogrel [Plavix] 75 mg PO QDAY #90 tablet traMADoL [Ultram 50 MG tab] 50 mg PO Q6HR PRN #12 tablet PRN Reason: Pain
--- NOTE | 2021-04-26 11:09 | Electrocardiograph Report ---
[facility] Test Date: 2021-04-19 Test Time: 18:42:50 Pat Name: MARIAELENA BASS Department: Room: A471 1 Gender: F Ex Chef: KENDRA : 1955 Requested By: TEA BATES Order Number: [id number] Reading MD: Jacquie Inman Measurements Intervals [place] Rate: 95 P: 58 FL: 125 QRS: 6 QRSD: 75 T: 75 QT: 387 QTc: 487 Interpretive Statements Sinus rhythm Probable left atrial enlargement Compared to ECG 04/03/2021 13:32:18 Ventricular premature complex(es) no longer present Electronically Signed On 04-26-2021 11:09:16 EDT by Jacquie Inman
== END 2021-04-21 18:47 | disposition home health service (06) ==
LOC: ED 18:05 → 4A 22:05
PROVIDERS: ADMIT Internal Medicine Geriatric Medicine; ATTEND Internal Medicine
DX: N39.0 Urinary tract infection, site not specified (principal); R29.6 Repeated falls; L89.159 Pressure ulcer of sacral region, unspecified stage; I11.0 Hypertensive heart disease with heart failure; I50.9 Heart failure, unspecified; E78.2 Mixed hyperlipidemia; J45.909 Unspecified asthma, uncomplicated; E11.9 Type 2 diabetes mellitus without complications; F17.210 Nicotine dependence, cigarettes, uncomplicated; M43.16 Spondylolisthesis, lumbar region; M48.061 Spinal stenosis, lumbar region without neurogenic claudication; M19.90 Unspecified osteoarthritis, unspecified site; R29.818 Other symptoms and signs involving the nervous system; R53.1 Weakness; Z86.73 Personal history of transient ischemic attack (TIA), and cerebral infarction without residual deficits; Z79.899 Other long term (current) drug therapy; Z98.890 Other specified postprocedural states; Z79.4 Long term (current) use of insulin; Z79.82 Long term (current) use of aspirin
CPT/HCPCS: 36415; 70450; 70486; 70553; 72131; 72141; 73502; 80048; 80053; 80061; 81001; 82962; 83036; 84484; 85025; 85610; 85730; 87086; 92523; 93005; 96365; 96366; 96372; 96375; 96376; 97162; 97165; 99291; 99406; A9270; A9575; G0378; J1170; J1956; J2270; J2405; J1815

== ENCOUNTER 2021-12-28 11:51 | Inpatient (IN) | payer MEDICAID ==
[2021-12-28] MEDS ORDERED: HYDROcodone/ACETAMINOPHEN 5-325 MG TAB PO ONE (12:43)
--- NOTE | 2021-12-28 12:45 | Emergency Department Report ---
HPI - General Chief Complaint: Extremity Injury, Lower Time Seen by Provider: 12/28/21 12:31 - HPI HPI: Room 38 The patient is a 66-year-old female present with a chief complaint of right leg pain. Patient states for the past 2 to 3 days she has had pain and swelling in the right leg. Patient states the pain has been intermittent. Patient denies any recent preceding falls. Patient currently gives her pain a score of 10/10. The patient states when her family members were not respond to her complaints she became suicidal and states she was drawing up insulin to overdose with right before EMS arrived. The patient states when EMS arrived she changed her mind and did not inject herself. Patient denies any other attempts at harming herself ED Past Medical Hx - Past Medical History Hx Hypertension: Yes Hx CVA: Yes Hx Congestive Heart Failure: Yes Hx Diabetes: Yes Hx Arthritis: Yes Hx Asthma: Yes - Surgical History Past Surgical History?: No Additional Surgical History: Colostomy (patient uncertain why she received a colostomy), left lower extremity debridement - Family History Family history: no significant - Social History Smoking Status: Current Every Day Smoker (1/7 pack/day) Substance Use Type: Alcohol (Occasional), Marijuana - Medications Home Medications: Home Medications Medication Instructions Recorded Confirmed Last Taken Type Nicotine [Habitrol] 14 mg TD QDAY #30 patch 07/23/19 04/07/21 Unknown Rx Aspirin 325 mg PO QDAY #90 tablet 04/21/21 Unknown Rx AtorvaSTATin [Lipitor] 80 mg PO QHS #90 tablet 04/21/21 Unknown Rx Baclofen [Lioresal] 20 mg PO Q8H PRN #20 tablet 04/21/21 Unknown Rx Clopidogrel [Plavix] 75 mg PO QDAY #90 tablet 04/21/21 Unknown Rx Famotidine [Pepcid] 20 mg PO BID #60 tablet 04/21/21 Unknown Rx Gabapentin 600 mg PO Q8HR #90 cap 04/21/21 Unknown Rx Insulin NPH/Regular [NovoLIN 70/30] 15 unit SUB-Q BIDDIAB 30 Days 04/21/21 Unknown Rx Lispro Insulin [HumaLOG] 0 unit SUB-Q ACHS 30 Days 04/21/21 Unknown Rx levoFLOXacin [Levaquin TAB] 500 mg PO QDAY #3 tablet 04/21/21 Unknown Rx traMADoL [Ultram 50 MG tab] 50 mg PO Q6HR PRN #12 tablet 04/21/21 Unknown Rx amLODIPine 5 mg PO DAILY #30 tab 04/22/21 Unknown Rx ED Review of Systems ROS: Stated complaint: RT LEG PAIN Other details as noted in HPI Constitutional: no symptoms reported Eyes: denies: eye pain ENT: denies: throat pain Respiratory: no symptoms reported Cardiovascular: denies: chest pain Endocrine: no symptoms reported Gastrointestinal: denies: abdominal pain Genitourinary: denies: dysuria Musculoskeletal: myalgia Neurological: denies: headache Physical Exam - Physical Exam Vital Signs: Vital Signs 12/28/21 12:09 Temperature 98.0 F Pulse Rate 98 H Respiratory 18 Rate Blood Pressure 148/72 [Left] O2 Sat by Pulse 98 Oximetry Physical Exam: GENERAL: The patient is well-developed well-nourished female lying on stretcher not appearing to be in acute distress. [] HEENT: Normocephalic. Atraumatic. Extraocular motions are intact. Patient has moist mucous membranes. NECK: Supple. Trachea midline CHEST/LUNGS: Clear to auscultation. There is no respiratory distress noted. HEART/CARDIOVASCULAR: Regular. There is no tachycardia. There is no gallop rub or murmur. 2+ right DP ABDOMEN: Abdomen is soft, nontender. Patient has normal bowel sounds. There is no abdominal distention. SKIN: There is a region of the medial proximal right thigh that is erythematous with overlying bullae. No fluctuance or induration appreciated. There is no diaphoresis. NEURO: The patient is awake, alert, and oriented. The patient is cooperative. The patient has no focal neurologic deficits. The patient has normal speech. GCS 15 MUSCULOSKELETAL: There is no evidence of acute injury. ED Course Vital Signs 12/28/21 12:09 Temperature 98.0 F Pulse Rate 98 H Respiratory 18 Rate Blood Pressure 148/72 [Left] O2 Sat by Pulse 98 Oximetry ED Medical Decision Making - Lab Data Result diagrams: 12/28/21 12:49 12/28/21 12:49 - Radiology Data Radiology results: report reviewed (Right lower extremity Doppler), image reviewed (Right lower extremity Doppler) [facility] [address] [place] [address] Vascular Lab Report Signed Patient: MARIAELENA BASS MR#: [id number] 63 : 1955 Acct:[id number] Age/Sex: 66 / F ADM Date: 12/28/21 Loc: ED Attending Dr: Ordering Physician: PATTI POPE MD Date of Service: 12/28/21 Procedure(s): VL venous duplex LE RT Accession Number(s): [id number] cc: PATTI POPE MD DUPLEX DOPPLER LOWER EXTREMITY VEINS, RIGHT INDICATION / CLINICAL INFORMATION: Pain and swelling. TECHNIQUE: Duplex doppler imaging was performed through the veins of the right lower extremity using venous compression and other maneuvers. COMPARISON: None available. FINDINGS: RIGHT COMMON FEMORAL VEIN: Negative. RIGHT FEMORAL VEIN: Negative. RIGHT POPLITEAL VEIN: Negative. RIGHT CALF VEINS: Negative. ADDITIONAL FINDINGS: None. IMPRESSION: 1. No sonographic evidence for DVT in the right lower extremity. Signer Name: Delmar Quinteros MD Signed: 12/28/2021 1:30 PM Workstation Name: [id number] Transcribed By: SS Dictated By: Delmar Quinteros MD Electronically Authenticated By: Delmar Quinteros MD Signed Date/Time: 12/28/21 1330 DD/ 1329 TD/TT: - Differential Diagnosis DVT, myalgia, suicidal ideation Critical care attestation.: If time is entered above; I have spent that time in minutes in the direct care of this critically ill patient, excluding procedure time. ED Disposition Clinical Impression: Right leg pain, Suicidal ideation, Cellulitis of right lower extremity Disposition: ADMITTED INPATIENT Is pt being admited?: Yes Does the pt Need Aspirin: No Condition: Fair Referrals: PRIMARY CARE, [Primary Care Provider] - 3-5 Days Time of Disposition: 14:38 (Hospitalist notified (Dr. Calle))
[2021-12-28 13:31] LABS: Alanine Aminotransferase 25 units/L (7-56); Albumin 3.1 g/dL (3.9-5); BUN/Creatinine Ratio 18; Blood Urea Nitrogen 16 mg/dL (7-17); Calcium 9.1 mg/dL (8.4-10.2); Hemolysis Index 3
--- NOTE | 2021-12-28 13:35 | Vascular Lab Report ---
DUPLEX DOPPLER LOWER EXTREMITY VEINS, RIGHT INDICATION / CLINICAL INFORMATION: Pain and swelling. TECHNIQUE: Duplex doppler imaging was performed through the veins of the right lower extremity using venous compression and other maneuvers. COMPARISON: None available. FINDINGS: RIGHT COMMON FEMORAL VEIN: Negative. RIGHT FEMORAL VEIN: Negative. RIGHT POPLITEAL VEIN: Negative. RIGHT CALF VEINS: Negative. ADDITIONAL FINDINGS: None. IMPRESSION: 1. No sonographic evidence for DVT in the right lower extremity. Signer Name: Delmar Quinteros MD Signed: 12/28/2021 1:30 PM Workstation Name: [id number]
[2021-12-28 14:26] LABS: Mean Corpuscular HGB Conc 31 % (30-34); Mean Corpuscular Volume 95 fl (79-97); Platelet Count 295 K/mm3 (140-440); Red Cell Distribution Width 14.6 % (13.2-15.2)
[2021-12-28 14:29] LABS: Hematocrit 47.7 % (30.3-42.9); Hemoglobin 14.7 gm/dl (10.1-14.3)
[2021-12-28] MEDS ORDERED: CEFEPIME/NS 2 GM/100 ML 2 GM/100 ML BAG IV ONE (14:34)
[2021-12-28] MEDS ORDERED: VANCOMYCIN/NS 1 GM/250 ML 1 GM/250 ML BAG IV ONE (14:34)
--- NOTE | 2021-12-28 14:58 | History and Physical Report ---
History of Present Illness Chief complaint: My right leg hurts History of present illness: 66 YO Female with CVA on DAPT, HTN, DM, Diastolic CHF, GERD, Nicotine Dependence, OA, Debility presents to ED for evaluation. Patient reports "my right leg hurts". Patient states that she has experienced swelling, redness, and pain to her right thigh area over the past 3 days with persistent and worsening symptoms over the same timeframe. Patient states the pain is 10/10, constant, worsened with movement, and relieved with nonmovement. Patient also reports feeling depressed due to her current living conditions. Patient reports feeling suicidal and considered drawing up insulin and taking a big dose in an attempt to take her own life. Patient states that she is unsatisfied with her current family response to her needs. EMS was notified by family members due to the aforementioned symptoms and upon arrival the patient was found to be in distress and subsequent transported to [facility] for further care and evaluation of the aforementioned symptoms. The patient was seen and evaluated in the emergency department. All lab and imaging studies reviewed. Patient was found to have fever with a temperature of 101 F. Patient was also found to have cellulitis to the right thigh and perineal area complicated by sepsis. Patient mated to medical floor and initiated on sepsis protocol. Mental health team consulted in ED. patient denies chills, chest pain, palpitation, productive cough, skin rash, recent contact, known exposure to COVID-19. Prior admission on 04/19/2021 reviewed. All medication listed at time of admission has been reconciled. Advanced care planning conducted in ED. Case management consulted in ED for assistance with discharge planning and placement. CT scan pelvis and right perineum ordered and is pending at time of admission. Past History Past Medical History: diabetes, GERD, hypertension, stroke Past Surgical History: bowel surgery Social history: single, lives with family, smoking Family history: diabetes, hypertension Medications and Allergies Allergies Allergy/AdvReac Type Severity Reaction Status Date / Time Penicillins Allergy Swelling Verified 04/19/21 18:25 Home Medications Medication Instructions Recorded Confirmed Last Taken Type Nicotine [Habitrol] 14 mg TD QDAY #30 patch 07/23/19 04/07/21 Unknown Rx Aspirin 325 mg PO QDAY #90 tablet 04/21/21 Unknown Rx AtorvaSTATin [Lipitor] 80 mg PO QHS #90 tablet 04/21/21 Unknown Rx Baclofen [Lioresal] 20 mg PO Q8H PRN #20 tablet 04/21/21 Unknown Rx Clopidogrel [Plavix] 75 mg PO QDAY #90 tablet 04/21/21 Unknown Rx Famotidine [Pepcid] 20 mg PO BID #60 tablet 04/21/21 Unknown Rx Gabapentin 600 mg PO Q8HR #90 cap 04/21/21 Unknown Rx Insulin NPH/Regular [NovoLIN 70/30] 15 unit SUB-Q BIDDIAB 30 Days 04/21/21 Unknown Rx Lispro Insulin [HumaLOG] 0 unit SUB-Q ACHS 30 Days 04/21/21 Unknown Rx levoFLOXacin [Levaquin TAB] 500 mg PO QDAY #3 tablet 04/21/21 Unknown Rx traMADoL [Ultram 50 MG tab] 50 mg PO Q6HR PRN #12 tablet 04/21/21 Unknown Rx amLODIPine 5 mg PO DAILY #30 tab 04/22/21 Unknown Rx Active Meds: Active Medications Vancomycin HCl (Vancomycin/Ns 1 Gm/250 Ml) 1 gm in 250 mls @ 167.007 mls/hr IV ONCE ONE; Protocol Stop: 12/28/21 16:03 Cefepime HCl (Cefepime/Ns 2 Gm/100 Ml) 2 gm in 100 mls @ 200 mls/hr IV ONCE ONE; Protocol Stop: 12/28/21 15:03 Tramadol HCl (Tramadol 50 Mg Tab) 50 mg PO Q6H PRN PRN Reason: Pain , Severe (7-10) Review of Systems Constitutional: fever, no weight loss, no weight gain, no chills Ears, nose, mouth and throat: no ear pain, no ear discharge, no tinnitis Breasts: no change in shape, no swelling, no mass Cardiovascular: no chest pain, no palpitations, no rapid/irregular heart beat, no syncope, no lightheadedness Respiratory: no cough, no cough with sputum, no hemoptysis, no shortness of breath Gastrointestinal: no abdominal pain, no nausea, no diarrhea, no constipation, no change in bowel habits Genitourinary Female: no pelvic pain, no flank pain, no dysuria Rectal: no pain, no incontinence, no bleeding Musculoskeletal: other (Right thigh pain), no neck stiffness, no neck pain, no shooting arm pain, no arm numbness/tingling, no shooting leg pain Integumentary: redness (Right thigh) Neurological: no head injury, no weakness, no numbness, no syncope Psychiatric: no anxiety, no change in sleep habits, no insomnia, no hypersomnia, no suicidal ideation, no disorientation Endocrine: no cold intolerance, no polyphagia, no polydipsia, no polyuria, no nocturia Hematologic/Lymphatic: no easy bruising, no easy bleeding, no lymphadenopathy Allergic/Immunologic: no wheezing Exam - Constitutional Vitals: Temp Pulse Resp BP Pulse Ox 98.0 F 98 H 18 148/72 98 12/28/21 12:09 12/28/21 12:09 12/28/21 12:12/28/21 12:12/28/21 12:09 General appearance: Present: mild distress, obese - EENT Eyes: Present: PERRL ENT: hearing intact, clear oral mucosa - Neck Neck: Present: supple, normal ROM - Respiratory Respiratory effort: normal Respiratory: bilateral: CTA - Cardiovascular Rhythm: other (Tachycardia) Heart Sounds: Present: S1 & S2. Absent: rub, click - Extremities Extremities: pulses symmetrical, No edema Extremity abnormal: edema, erythema, tenderness, other (Right thigh and perineum) Peripheral Pulses: abnormal (Capillary refill greater than 3.5 seconds) - Abdominal General gastrointestinal: Present: soft, non-tender, non-distended, normal bowel sounds Female genitourinary: Present: normal - Integumentary Integumentary: Present: clear, warm, dry - Musculoskeletal Musculoskeletal: gait normal, strength equal bilaterally - Psychiatric Psychiatric: appropriate mood/affect, intact judgment & insight - Neurologic Neurologic: CNII-XII intact, moves all extremities, no gait normal Results - Labs CBC & Chem 7: 12/28/21 12:49 12/28/21 12:49 Labs: Abnormal lab results 12/28/21 12/28/21 12/28/21 Range/Units 12:49 12:49 12:49 WBC 34.9 H (4.5-11.0) K/mm3 Hgb 14.7 H (10.1-14.3) gm/dl Hct 47.7 H (30.3-42.9) % Glucose 362 H (65-100) mg/dL Alkaline Phosphatase 269 H (35-129) units/L Albumin 3.1 L (3.9-5) g/dL Salicylates < 0.3 L (2.8-20.0) mg/dL Acetaminophen (10.0-30.0) ug/mL 12/28/21 Range/Units 12:49 WBC (4.5-11.0) K/mm3 Hgb (10.1-14.3) gm/dl Hct (30.3-42.9) % Glucose (65-100) mg/dL Alkaline Phosphatase (35-129) units/L Albumin (3.9-5) g/dL Salicylates (2.8-20.0) mg/dL Acetaminophen 5.0 L (10.0-30.0) ug/mL Assessment and Plan - Patient Problems (1) Sepsis Current Visit: Yes Status: Acute Plan to address problem: Sepsis protocol: Chest x-ray, CBC, CMP, urinalysis, IV antibiotic therapy, IV fluid resuscitation therapy, serial lactic acid level, maintain mean arterial pressure greater than or equal to 65, blood culture. (2) Cellulitis, perineum Current Visit: Yes Status: Acute Plan to address problem: CT scan right lower extremity and perineum, IV antibiotic therapy, surgery team consulted due to concern regarding possible necrotizing soft tissue infection. Supportive care. (3) Cellulitis of right lower extremity Current Visit: Yes Status: Acute Plan to address problem: CT scan right lower extremity and perineum, IV antibiotic therapy, surgery team consulted due to concern regarding possible necrotizing soft tissue infection. Supportive care. (4) Debility Current Visit: Yes Status: Acute Plan to address problem: Supportive care, physical therapy consulted. (5) Suicidal ideation Current Visit: Yes Status: Acute Plan to address problem: [address], one-to-one sitter, mental health team consulted. (6) Nicotine dependence Current Visit: No Status: Chronic Qualifiers: Nicotine product type: cigarettes Substance use status: in withdrawal Qualified Code(s): F17.213 - Nicotine dependence, cigarettes, with withdrawal Plan to address problem: Smoking cessation counseling, supportive care, behavior change counseling, +15 minutes. (7) Hypertension Current Visit: Yes Status: Acute Qualifiers: Hypertension type: primary hypertension Qualified Code(s): I10 - Essential (primary) hypertension Plan to address problem: Monitor blood pressure every shift, continue medical management (8) Diabetes Current Visit: Yes Status: Acute Plan to address problem: Consistent carbohydrate diet, Accu-Chek, insulin protocol, hypoglycemia protocol, (9) GERD (gastroesophageal reflux disease) Current Visit: Yes Status: Acute Qualifiers: Esophagitis presence: without esophagitis Qualified Code(s): K21.9 - Gastro-esophageal reflux disease without esophagitis Plan to address problem: PPI therapy, supportive care (10) Lactic acidosis Current Visit: Yes Status: Acute Plan to address problem: Supportive care, IV fluid resuscitation therapy, serial lactic acid level. Treat sepsis. (11) Diastolic CHF Current Visit: Yes Status: Acute Qualifiers: Heart failure chronicity: chronic Qualified Code(s): I50.32 - Chronic diastolic (congestive) heart failure Plan to address problem: No CHF, decompensation at this time, blood pressure control, continue medical management. (12) DVT prophylaxis Current Visit: Yes Status: Acute Plan to address problem: SCD to bilateral lower extremities while in bed (13) Advance care planning Current Visit: Yes Status: Acute Plan to address problem: Disease education conducted, care plan discussed, diagnoses discussed, prognosis discussed, patient is full code. Patient acknowledges understanding and agreement with care plan, +30 minutes. Case management consulted regarding assistance with discharge planning and placement..
[2021-12-28] MEDS ORDERED: HYDROmorphone 1 MG/1 ML INJ IV PRN (15:00)
[2021-12-28] MEDS ORDERED: SODIUM CHLORIDE 0.9% 1000 ML IV SOLN IV ONE (15:00)
[2021-12-28] MEDS ORDERED: ACETAMINOPHEN 325 MG TAB PO PRN ×2 (15:00→20:33)
[2021-12-28] MEDS: traMADol 50 MG TAB PO PRN (16:51)
[2021-12-28] MEDS: CLINDAMYCIN 600 MG/50 mL 600 MG/50 ML BAG IV SCH (17:00)
[2021-12-28 18:51] LABS: Band Neutrophils # (Manual) 2.1 K/mm3; Basophils % (Manual) 0 % (0.0-1.8); Eosinophils % (Manual) 0 % (0.0-4.3); Platelet Estimate Consistent w Auto; RBC Morphology Normal; Total Cells Counted 100
--- NOTE | 2021-12-28 19:12 | Cat Scan Report ---
CT LOWER EXTREMITY RT W CON INDICATION: Proximal medial thigh erythema and pain. TECHNIQUE: Imaging was performed from the lower pelvis throughout the right lower extremity postcontrast All CT scans at this location are performed using the following dose modulation technique: Automated exposur e control. CONTRAST: Omnipaque 350, 120 cc IV injection COMPARISON: None available. FINDINGS: Imaged portions of the soft tissue pelvis are unremarkable. A large partially calcified fib roid is seen on the right measuring 5.5 cm. Extensive soft tissue gas is seen within the subcutaneous tissues medially arising just above the per ineum and extending inferiorly for approximately 18.5 cm. There is no fluid component and no vascular involvement. Incidentally noted is degenerative change at the knee greatest at the patellofemoral joint. IMPRESSION: 1. Extensive soft tissue gas within the subcutaneous tissues of the medial right thigh. No vascular i nvolvement or significant fluid component component. 2. Incidentally noted is a partially calcified right uterine fibroid. Signer Name: Curt Waggoner MD Signed: 12/28/2021 7:07 PM Workstation Name: [id number]
[2021-12-28] MEDS ORDERED: ALBUTEROL 2.5 MG/3 ML NEBU IH PRN ×2 (20:28→20:31)
[2021-12-28] MEDS ORDERED: ONDANSETRON 4 MG/2 ML INJ IV PRN (20:31)
[2021-12-28] MEDS ORDERED: DEXTROSE 10% *Hypoglycemia IV PRN (20:32)
[2021-12-28 21:13] LABS: Bacteria,Urine 1+ /HPF (Negative); Bilirubin,Urine NEG (Negative); Blood,Urine NEG (Negative); Color,Urine Yellow (Yellow); Mucus,Urine FEW /HPF
[2021-12-28 21:20] LABS: Amphetamine Screen,Urine PRESUMPTIVE NEGATIVE; Benzodiazepines Screen,Urine PRESUMPTIVE NEGATIVE; Cannabinoid Screen,Urine PRESUMPTIVE POSITIVE; Cocaine Screen,Urine PRESUMPTIVE NEGATIVE; Methadone Screen,Urine PRESUMPTIVE NEGATIVE; Opiate Screen,Urine PRESUMPTIVE NEGATIVE
[2021-12-28] MEDS ORDERED: INSULIN LISPRO 100 UNIT/ML SUB-Q ONE (21:27)
[2021-12-28 21:34] LABS: BUN/Creatinine Ratio 18; Blood Urea Nitrogen 14 mg/dL (7-17); Calcium 8.1 mg/dL (8.4-10.2); Hemolysis Index 11
--- NOTE | 2021-12-28 21:38 | Anesthesia Consultation ---
Anesthesia Consult and Med Hx - Airway Anesthetic Teeth Evaluation: Poor (missing several front upper incisors) ROM Head & Neck: Adequate Mental/Hyoid Distance: Adequate Mallampati Class: Class II Intubation Access Assessment: Probably Good - Pulmonary Exam CTA: Yes - Cardiac Exam Cardiac Exam: RRR - Pre-Operative Health Status ASA Pre-Surgery Classification: ASA4, Emergency Proposed Anesthetic Plan: General - Pulmonary Hx Smoking: Yes (smokes approx 1 ppd) Hx Asthma: Yes Hx Respiratory Symptoms: No SOB: No COPD: No Hx Pneumonia: No Hx Sleep Apnea: Yes (High risk ) - Cardiovascular System Hx Hypertension: Yes Hx Heart Attack/AMI: No - Central Nervous System CVA: Yes Hx Psychiatric Problems: Yes (anxiety) - Gastrointestinal Hx Gastroesophageal Reflux Disease: Yes (occasional) - Endocrine Hx End Stage Renal Disease: No Hx Insulin Dependent Diabetes: Yes Hx Thyroid Disease: No - Hematic Hx Anemia: Yes (last hgb 14.7) - Other Systems Hx Alcohol Use: Yes Hx Substance Use: Yes Hx Cancer: No Hx Obesity: Yes (BMI 30) - Additional Comments Anesthesia Medical History Comments: No hx of anesthesia complications
--- NOTE | 2021-12-28 21:39 | Anesthesia Day of Surgery ---
Anesthesia Day of Surgery - Day of Surgery Patient Examined: Yes Patient H&P Reviewed: Yes Patient is NPO: Yes
[2021-12-28] MEDS ORDERED: LIDOCAINE MPF (2%) 20 MG/1 ML VIAL 5 ML ONE (21:47)
[2021-12-28] MEDS ORDERED: propofoL 200 MG/20 ML VIAL IV ONE (21:47)
[2021-12-28] MEDS ORDERED: SUCCINYLCHOLINE CHLORIDE 200 MG/10 ML INJ MDV ONE (21:47)
[2021-12-28] MEDS ORDERED: fentaNYL 100 MCG/2 ML INJ ONE (21:47)
[2021-12-28] MEDS ORDERED: SODIUM HYPOCHLORITE, DAKIN'S FULL STRENGTH (0.5%) 473 ML TOPICAL SOLN ONE (21:49)
[2021-12-28] MEDS ORDERED: BUPIVACAINE/PF (0.5%) 5 MG/1 ML 30 ML VIAL INFILTRATI ONE ×2 (21:49→22:46)
--- NOTE | 2021-12-28 21:51 | Consultation ---
History of Present Illness Consult date: 12/28/21 - History of present illness History of present illness: General surgery called for evaluation of a 66-year-old female with many comorbidities presenting with necrotizing fasciitis of the right leg. Detailed history of illnesses below but she was found to have significant subcutaneous air based on CT scan from the perineum running down her right leg. 66 YO Female with CVA on DAPT, HTN, DM, Diastolic CHF, GERD, Nicotine Dependence, OA, Debility presents to ED for evaluation. Patient reports "my right leg hurts". Patient states that she has experienced swelling, redness, and pain to her right thigh area over the past 3 days with persistent and worsening symptoms over the same timeframe. Patient states the pain is 10/10, constant, worsened with movement, and relieved with nonmovement. Patient also reports feeling depressed due to her current living conditions. Patient reports feeling suicidal and considered drawing up insulin and taking a big dose in an attempt to take her own life. Patient states that she is unsatisfied with her current family response to her needs. EMS was notified by family members due to the aforementioned symptoms and upon arrival the patient was found to be in distress and subsequent transported to [facility] for further care and evaluation of the aforementioned symptoms. The patient was seen and evaluated in the emergency department. All lab and imaging studies reviewed. Patient was found to have fever with a temperature of 101 F. Patient was also found to have cellulitis to the right thigh and perineal area complicated by sepsis. Patient mated to medical floor and initiated on sepsis protocol. Mental health team consulted in ED. patient denies chills, chest pain, palpitation, productive cough, skin rash, recent contact, known exposure to COVID-19. Past History Past Medical History: diabetes, GERD, hypertension, PVD, stroke, other (chf) Past Surgical History: bowel surgery, Other (colostomy (pt does not know why)) Social history: single, lives with family, smoking Family history: diabetes, hypertension Medications and Allergies Allergies Allergy/AdvReac Type Severity Reaction Status Date / Time Penicillins Allergy Swelling Verified 04/19/21 18:25 Home Medications Medication Instructions Recorded Confirmed Last Taken Type Nicotine [Habitrol] 14 mg TD QDAY #30 patch 07/23/19 04/07/21 Unknown Rx Aspirin 325 mg PO QDAY #90 tablet 04/21/21 Unknown Rx AtorvaSTATin [Lipitor] 80 mg PO QHS #90 tablet 04/21/21 Unknown Rx Baclofen [Lioresal] 20 mg PO Q8H PRN #20 tablet 04/21/21 Unknown Rx Clopidogrel [Plavix] 75 mg PO QDAY #90 tablet 04/21/21 Unknown Rx Famotidine [Pepcid] 20 mg PO BID #60 tablet 04/21/21 Unknown Rx Gabapentin 600 mg PO Q8HR #90 cap 04/21/21 Unknown Rx Insulin NPH/Regular [NovoLIN 70/30] 15 unit SUB-Q BIDDIAB 30 Days 04/21/21 Unknown Rx Lispro Insulin [HumaLOG] 0 unit SUB-Q ACHS 30 Days 04/21/21 Unknown Rx levoFLOXacin [Levaquin TAB] 500 mg PO QDAY #3 tablet 04/21/21 Unknown Rx traMADoL [Ultram 50 MG tab] 50 mg PO Q6HR PRN #12 tablet 04/21/21 Unknown Rx amLODIPine 5 mg PO DAILY #30 tab 04/22/21 Unknown Rx Active Meds: Active Medications Acetaminophen (Acetaminophen 325 Mg Tab) 650 mg PO Q8H PRN PRN Reason: Pain, Mild (1-3) Albuterol (Albuterol 2.5 Mg/3 Ml Nebu) 2.5 mg IH Q4HRT PRN PRN Reason: Shortness Of Breath Dextrose (Dextrose 10% *Hypoglycemia) 0 ml IV DIRECT PRN; Protocol PRN Reason: Hypoglycemia Hydromorphone HCl (Hydromorphone 1 Mg/1 Ml Inj) 0.25 mg IV Q4H PRN PRN Reason: Pain, Moderate (4-6) Hydromorphone HCl (Hydromorphone 1 Mg/1 Ml Inj) 0.25 mg IV Q6H PRN PRN Reason: Pain, Moderate (4-6) Hydromorphone HCl (Hydromorphone 1 Mg/1 Ml Inj) 0.5 mg IV Q6H PRN PRN Reason: Pain , Severe (7-10) Clindamycin HCl (Cleocin 600 Mg/50 Ml) 600 mg in 50 mls @ 100 mls/hr IV Q8H BAUTISTA; Protocol Last Admin: 12/28/21 17:00 Dose: 100 mls/hr Insulin Human Lispro (Insulin Lispro 100 Unit/Ml) 0 unit SUB-Q Q6HR BAUTISTA; Protocol Ondansetron HCl (Ondansetron 4 Mg/2 Ml Inj) 4 mg IV Q8H PRN PRN Reason: Nausea And Vomiting Sodium Chloride (Sodium Chloride 0.9% 10 Ml Flush Syringe) 10 ml IV BID BAUTISTA Sodium Chloride (Sodium Chloride 0.9% 10 Ml Flush Syringe) 10 ml IV BID BAUTISTA Sodium Chloride (Sodium Chloride 0.9% 10 Ml Flush Syringe) 10 ml IV PRN PRN PRN Reason: LINE FLUSH Tramadol HCl (Tramadol 50 Mg Tab) 50 mg PO Q6H PRN PRN Reason: Pain , Severe (7-10) Last Admin: 12/28/21 16:51 Dose: 50 mg Review of Systems All systems: negative - Constitutional no fever, no chills - Cardiovascular no chest pain - Gastrointestinal no abdominal pain - Genitourinary Genitourinary: no dysuria - Muskuloskeletal shooting leg pain - Integumentary redness, blisters - Psychiatric suicidal ideation Exam Vital Signs Temp Pulse Resp BP Pulse Ox 98.0 F 98 H 18 148/72 98 12/28/21 12:09 12/28/21 12:09 12/28/21 12:09 12/28/21 12:09 12/28/21 12:09 - General physical appearance Positive: well developed, no distress, severe pain - Eyes Positive: PERRL - Respiratory Positive: normal expansion, normal respiratory effort - Cardiovascular Heart Sounds: Present: S1 & S2 - Extremities Extremity abnormal: other (Right proximal thigh with erythema skin bulla. Extremely tender to palpation. Starting at perennial area down to mid thigh extending posteriorly.) - Abdomen Abdomen: Present: soft, other (Colostomy on left side with stool and air in bag). Absent: tender Results - Labs 12/28/21 12:49 12/28/21 20:56 Abnormal lab results 12/28/21 12/28/21 12/28/21 Range/Units 12:49 12:49 12:49 WBC 34.9 H (4.5-11.0) K/mm3 Hgb 14.7 H (10.1-14.3) gm/dl Hct 47.7 H (30.3-42.9) % Seg Neuts % (Manual) 90.0 H (40.0-70.0) % Lymphocytes % (Manual) 0 L (13.4-35.0) % Seg Neutrophils # Man 31.4 H (1.8-7.7) K/mm3 Lymphocytes # (Manual) 0.0 L (1.2-5.4) K/mm3 Monocytes # (Manual) 1.4 H (0.0-0.8) K/mm3 Carbon Dioxide (22-30) mmol/L Glucose 362 H (65-100) mg/dL POC Glucose (70-105) mg/dL Lactic Acid (0.7-2.0) mmol/L Calcium (8.4-10.2) mg/dL Alkaline Phosphatase 269 H (35-129) units/L Albumin 3.1 L (3.9-5) g/dL Ur Specific Monroe (1.003-1.030) Salicylates < 0.3 L (2.8-20.0) mg/dL Acetaminophen (10.0-30.0) ug/mL 12/28/21 12/28/21 12/28/21 Range/Units 12:49 19:00 19:04 WBC (4.5-11.0) K/mm3 Hgb (10.1-14.3) gm/dl Hct (30.3-42.9) % Seg Neuts % (Manual) (40.0-70.0) % Lymphocytes % (Manual) (13.4-35.0) % Seg Neutrophils # Man (1.8-7.7) K/mm3 Lymphocytes # (Manual) (1.2-5.4) K/mm3 Monocytes # (Manual) (0.0-0.8) K/mm3 Carbon Dioxide (22-30) mmol/L Glucose (65-100) mg/dL POC Glucose (70-105) mg/dL Lactic Acid 3.30 H* (0.7-2.0) mmol/L Calcium (8.4-10.2) mg/dL Alkaline Phosphatase (35-129) units/L Albumin (3.9-5) g/dL Ur Specific [place] 1.043 H (1.003-1.030) Salicylates (2.8-20.0) mg/dL Acetaminophen 5.0 L (10.0-30.0) ug/mL 12/28/21 12/28/21 12/28/21 Range/Units 20:41 20:56 20:56 WBC (4.5-11.0) K/mm3 Hgb (10.1-14.3) gm/dl Hct (30.3-42.9) % Seg Neuts % (Manual) (40.0-70.0) % Lymphocytes % (Manual) (13.4-35.0) % Seg Neutrophils # Man (1.8-7.7) K/mm3 Lymphocytes # (Manual) (1.2-5.4) K/mm3 Monocytes # (Manual) (0.0-0.8) K/mm3 Carbon Dioxide 20 L (22-30) mmol/L Glucose 419 H (65-100) mg/dL POC Glucose 399 H (70-105) mg/dL Lactic Acid 2.80 H* (0.7-2.0) mmol/L Calcium 8.1 L (8.4-10.2) mg/dL Alkaline Phosphatase (35-129) units/L Albumin (3.9-5) g/dL Ur Specific [place] (1.003-1.030) Salicylates (2.8-20.0) mg/dL Acetaminophen (10.0-30.0) ug/mL Diabetes panel 12/28/21 12/28/21 Range/Units 12:49 20:56 Sodium 143 138 (137-145) mmol/L Potassium 3.7 3.6 (3.6-5.0) mmol/L Chloride 102.8 102.7 (98-107) mmol/L Carbon Dioxide 23 20 L (22-30) mmol/L BUN 16 14 (7-17) mg/dL Creatinine 0.9 0.8 (0.6-1.2) mg/dL Glucose 362 H 419 H (65-100) mg/dL Calcium 9.1 8.1 L (8.4-10.2) mg/dL AST 25 (5-40) units/L ALT 25 (7-56) units/L Alkaline Phosphatase 269 H (35-129) units/L Total Protein 7.1 (6.3-8.2) g/dL Albumin 3.1 L (3.9-5) g/dL Calcium panel 12/28/21 12/28/21 Range/Units 12:49 20:56 Calcium 9.1 8.1 L (8.4-10.2) mg/dL Albumin 3.1 L (3.9-5) g/dL Pituitary panel 12/28/21 12/28/21 Range/Units 12:49 20:56 Sodium 143 138 (137-145) mmol/L Potassium 3.7 3.6 (3.6-5.0) mmol/L Chloride 102.8 102.7 (98-107) mmol/L Carbon Dioxide 23 20 L (22-30) mmol/L BUN 16 14 (7-17) mg/dL Creatinine 0.9 0.8 (0.6-1.2) mg/dL Glucose 362 H 419 H (65-100) mg/dL Calcium 9.1 8.1 L (8.4-10.2) mg/dL Adrenal panel 12/28/21 12/28/21 Range/Units 12:49 20:56 Sodium 143 138 (137-145) mmol/L Potassium 3.7 3.6 (3.6-5.0) mmol/L Chloride 102.8 102.7 (98-107) mmol/L Carbon Dioxide 23 20 L (22-30) mmol/L BUN 16 14 (7-17) mg/dL Creatinine 0.9 0.8 (0.6-1.2) mg/dL Glucose 362 H 419 H (65-100) mg/dL Calcium 9.1 8.1 L (8.4-10.2) mg/dL Total Bilirubin 0.70 (0.1-1.2) mg/dL AST 25 (5-40) units/L ALT 25 (7-56) units/L Alkaline Phosphatase 269 H (35-129) units/L Total Protein 7.1 (6.3-8.2) g/dL Albumin 3.1 L (3.9-5) g/dL - Imaging Additional studies: CT scan lower extremity right Findings: Extensive soft tissue gas is seen within the subcutaneous tissues medially arising just above the perineum and extending inferiorly for approxi mately 18.5 cm. There is no fluid component or vascular involvement. Assessment and Plan 66-year-old diabetic female with necrotizing fasciitis. Currently afebrile and stable with significant leukocytosis. Patient is consented for emergent wide excisional debridement of necrotic tissue of proximal right leg. Discussed pathology, treatment, and prognosis with patient she expressed understanding of the risk and benefits. Also called patient's daughter and informed her of the patient's condition.
[2021-12-28] MEDS ORDERED: PHENYLEPHRINE/NS 1,000 MCG/10 ML SYRINGE (OR USE) IV ONE (22:12)
[2021-12-28] MEDS ORDERED: SODIUM CHLORIDE 0.9% IRR 1,500 ML BOTTLE IR ONE (22:47)
[2021-12-28] MEDS ORDERED: SODIUM HYPOCHLORITE, DAKIN'S 1/2 STRENGTH (0.25%) 473 ML TOPICAL SOLN IR ONE (22:47)
[2021-12-28] MEDS ORDERED: ONDANSETRON 4 MG/2 ML INJ ONE (23:04)
[2021-12-28] MEDS ORDERED: LACTATED RINGERS 1,000 ML ONE ×2 (23:05→23:38)
[2021-12-28] MEDS ORDERED: ROCURONIUM 50 MG/5 ML INJ IV ONE (23:05)
[2021-12-28] MEDS ORDERED: HYDROmorphone 1 MG/1 ML INJ ONE (23:06)
[2021-12-28] MEDS ORDERED: GLYCOPYRROLATE 0.4 MG/2 ML INJ ONE ×2 (23:35)
[2021-12-28] MEDS ORDERED: NEOSTIGMINE 10MG/10 ML INJ MDV ONE (23:35)
[2021-12-29] MEDS ORDERED: INSULIN LISPRO 100 UNIT/ML SUB-Q SCH
[2021-12-29] MEDS ORDERED: SUGAMMADEX SODIUM 200 MG/2 ML VIAL IV ONE (00:02)
[2021-12-29] MEDS ORDERED: ONDANSETRON 4 MG/2 ML INJ IV PRN ×2 (00:17→00:32)
[2021-12-29] MEDS ORDERED: HYDROmorphone 1 MG/1 ML INJ IV PRN (00:17)
[2021-12-29] MEDS: HYDROmorphone 1 MG/1 ML INJ IV PRN ×4 (00:20→18:21)
--- NOTE | 2021-12-29 00:24 | Operative Report ---
Operative Report Operative Report: Date: December 28, 2021 Surgeon: Chiara Romano MD Scrip Clerk surgeon: Alex Perdomo CSA MD Procedure: Wide excisional debridement right leg Preop diagnosis: Necrotizing fasciitis proximal right leg Postop diagnosis: Same as preop Anesthesia:GETA Indication: Patient is a 66-year-old female with diabetes who presented with right leg pain and cellulitis. CT scan showed necrotizing fasciitis with significant subcutaneous air. Patient was emergently taken to the operating room after getting consent for wide debridement. Details of procedure: Patient brought the OR suite and laid in supine position. Bilateral lower extremity SCDs were placed. General anesthesia was induced via successful endotracheal tube intubation. A Enriquez catheter was inserted under sterile conditions. Patient was placed in lithotomy position, and her perineum and bilateral thighs were prepped and draped in sterile fashion. After a timeout was performed the electrocautery using a combination of cutting and cautery was used to incise the skin down to the fascia. There was noted to be necrotic tissue down to the fascia with some areas of purulent drainage extending to the groin and perineum area. A portion of skin and subcutaneous tissue was excised resulting in a cavity with borders measuring approximately 15 x 18 cm. There was mild undermining going distal in the thigh. Excision was performed until there was no gross purulence or necrotic tissue appreciated. The tissue was sent as specimen. The resulting cavity was irrigated with normal saline and packed with Dakin's moistened Kerlix after hemostasis was achieved with electrocautery. This was followed by clean dressing. Patient was awoken, extubated and taken to recovery in stable condition from there she will go to intensive care unit. Patient tolerated the procedure well. Complications: None immediate Findings: Necrotic tissue in the right proximal thigh mostly on the medial aspect including subcutaneous tissue down to the fascia. Specimen: Necrotic skin and subcutaneous tissue from right proximal leg
--- NOTE | 2021-12-29 00:48 | Post Anesthesia Evaluation ---
- Post Anesthesia Evaluation Patient Participated: Yes Airway Patent: Yes Stable Respiratory Function: Yes Nausea/Vomiting: No Temp > 96.8F: Yes Pain Manageable: Yes Adequeate Hydration: Yes Anesthesia Complications: No Patient on Ventilator: No Other Comments: HD stable, no pressors or drips. SpO2 98% on O2 via facemask (SpO2 89-91% on NC). Glucose improved. AM labs ordered by hospitalist. OK for transfer to ICU.
[2021-12-29 05:32] LABS: Hematocrit 36.9 % (30.3-42.9); Hemoglobin 12.8 gm/dl (10.1-14.3); Mean Corpuscular HGB Conc 35 % (30-34); Mean Corpuscular Volume 94 fl (79-97); Platelet Count 285 K/mm3 (140-440); Red Blood Count 3.93 M/mm3 (3.65-5.03); Red Cell Distribution Width 14.4 % (13.2-15.2)
[2021-12-29 05:49] LABS: Alanine Aminotransferase 31 units/L (7-56); Albumin 2.3 g/dL (3.9-5); BUN/Creatinine Ratio 15; Blood Urea Nitrogen 12 mg/dL (7-17); Hemolysis Index 9
[2021-12-29 08:25] LABS: Band Neutrophils # (Manual) 0.6 K/mm3; Basophils % (Manual) 0 % (0.0-1.8); Eosinophils % (Manual) 0 % (0.0-4.3); Large Platelets Few; Platelet Estimate Consistent w Auto; RBC Morphology Normal; Total Cells Counted 100
[2021-12-29] MEDS ORDERED: SODIUM CHLORIDE 0.9% 1000 ML 1,000 ML ONE (10:13)
[2021-12-29] MEDS: CLINDAMYCIN 600 MG/50 mL 600 MG/50 ML BAG IV SCH ×2 (10:18→10:19)
--- NOTE | 2021-12-29 11:01 | Consultation ---
History of Present Illness Consult date: 12/29/21 Requesting physician: SEDA SWANN History of present illness: Detailed history 66 YO Female with CVA on DAPT, HTN, DM, Diastolic CHF, GERD, Nicotine Dependence, OA, Debility presents to ED for evaluation. Patient reports "my rig ht leg hurts". Patient states that she has experienced swelling, redness, and pain to her right thigh area over the past 3 days with persistent and worsening symptoms over the same timeframe. Patient states the pain is 10/10, constant, worsened with movement, and relieved with nonmovement. Patient also reports feeling depressed due to her current living conditions. Patient reports feeling suicidal and considered drawing up insulin and taking a big dose in an attempt to take her own life. Patient states that she is unsatisfied with her current family response to her needs. EMS was notified by family members due to the aforementioned symptoms and upon arrival the patient was found to be in distress and subsequent transported to [facility] for further care and evaluation of the aforementioned symptoms. The patient was seen and evaluated in the emergency department. All lab and imaging studies reviewed. Patient was found to have fever with a temperature of 101 F. Patient was also found to have cellulitis to the right thigh and perineal area complicated by sepsis. Patient mated to [facility] floor and initiated on sepsis protocol. Mental health team consulted in ED. patient denies chills, chest pain, palpitation, productive cough, skin rash, recent contact, known exposure to COVID-19. The patient was admitted to the ICU s/p Wide excisional debridement right leg secondary to necrotizing fasciitis proximal right leg. She had poorly controlled diabetes with severe hyperglycemia. Patient seen and examined. Vitals, labs, medications, chart reviewed. Discussed with hospital medicine and general surgery. No acute overnight events, no fevers, no nausea, vomiting or diarrhea. Discussed with nursing staff. The patient denies any chest pain, no shortness of breath Past History Past Medical History: diabetes, GERD, hypertension, PVD, stroke, other (chf) Past Surgical History: bowel surgery, Other (colostomy (pt does not know why)) Social history: single, lives with family, smoking Family history: diabetes, hypertension Medications and Allergies Allergies Allergy/AdvReac Type Severity Reaction Status Date / Time Penicillins Allergy Swelling Verified 04/19/21 18:25 Home Medications Medication Instructions Recorded Confirmed Last Taken Type Nicotine [Habitrol] 14 mg TD QDAY #30 patch 07/23/19 12/29/21 Unknown Rx Aspirin 325 mg PO QDAY #90 tablet 04/21/21 12/29/21 Unknown Rx AtorvaSTATin [Lipitor] 80 mg PO QHS #90 tablet 04/21/21 12/29/21 Unknown Rx Baclofen [Lioresal] 20 mg PO Q8H PRN #20 tablet 04/21/21 12/29/21 Unknown Rx Clopidogrel [Plavix] 75 mg PO QDAY #90 tablet 04/21/21 12/29/21 Unknown Rx Famotidine [Pepcid] 20 mg PO BID #60 tablet 04/21/21 12/29/21 Unknown Rx Gabapentin 600 mg PO Q8HR #90 cap 04/21/21 12/29/21 Unknown Rx Insulin NPH/Regular [NovoLIN 70/30] 15 unit SUB-Q BIDDIAB 30 Days 04/21/21 12/29/21 Unknown Rx Lispro Insulin [HumaLOG] 0 unit SUB-Q ACHS 30 Days 04/21/21 12/29/21 Unknown Rx levoFLOXacin [Levaquin TAB] 500 mg PO QDAY #3 tablet 04/21/21 12/29/21 Unknown Rx traMADoL [Ultram 50 MG tab] 50 mg PO Q6HR PRN #12 tablet 04/21/21 12/29/21 Unknown Rx amLODIPine 5 mg PO DAILY #30 tab 04/22/21 12/29/21 Unknown Rx Active Meds: Active Medications Acetaminophen (Acetaminophen 325 Mg Tab) 650 mg PO Q8H PRN PRN Reason: Pain, Mild (1-3) Albuterol (Albuterol 2.5 Mg/3 Ml Nebu) 2.5 mg IH Q4HRT PRN PRN Reason: Shortness Of Breath Dextrose (Dextrose 10% *Hypoglycemia) 0 ml IV DIRECT PRN; Protocol PRN Reason: Hypoglycemia Hydromorphone HCl (Hydromorphone 1 Mg/1 Ml Inj) 0.25 mg IV Q6H PRN PRN Reason: Pain, Moderate (4-6) Hydromorphone HCl (Hydromorphone 1 Mg/1 Ml Inj) 0.5 mg IV Q6H PRN PRN Reason: Pain , Severe (7-10) Last Admin: 12/29/21 10:17 Dose: 0.5 mg Clindamycin HCl (Cleocin 600 Mg/50 Ml) 600 mg in 50 mls @ 100 mls/hr IV Q8H BAUTISTA; Protocol Last Admin: 12/29/21 10:19 Dose: 100 mls/hr Insulin Human Lispro (Insulin Lispro 100 Unit/Ml) 0 unit SUB-Q Q6HR BAUTISTA; P rotocol Ondansetron HCl (Ondansetron 4 Mg/2 Ml Inj) 4 mg IV Q8H PRN PRN Reason: Nausea And Vomiting Sodium Chloride (Sodium Chloride 0.9% 10 Ml Flush Syringe) 10 ml IV BID BAUTISTA Last Admin: 12/29/21 10:19 Dose: 10 ml Sodium Chloride (Sodium Chloride 0.9% 10 Ml Flush Syringe) 10 ml IV PRN PRN PRN Reason: LINE FLUSH Tramadol HCl (Tramadol 50 Mg Tab) 50 mg PO Q6H PRN PRN Reason: Pain , Severe (7-10) Last Admin: 12/28/21 16:51 Dose: 50 mg Review of Systems Constitutional: no weight loss, no weight gain, no fever, no chills Cardiovascular: no chest pain, no palpitations, no rapid/irregular heart beat, no lightheadedness, no shortness of breath Respiratory: no cough, no hemoptysis, no shortness of breath, no dyspnea on exertion Gastrointestinal: no abdominal pain, no nausea, no vomiting, no diarrhea Neurological: no transient paralysis, no paralysis, no weakness, no parathesias, no seizures, no syncope Physical Examination Vital signs: Vital Signs Temp Pulse Resp BP Pulse Ox 98.0 F 98 H 18 148/72 98 12/28/21 12:09 12/28/21 12:09 12/28/21 12:09 12/28/21 12:12/28/21 12:09 General appearance: Present: mild distress, obese - EENT Eyes: Present: PERRL ENT: hearing intact, clear oral mucosa - Neck Neck: Present: supple, normal ROM - Respiratory Respiratory effort: normal Respiratory: bilateral: CTA - Cardiovascular Rhythm: other (Tachycardia) Heart Sounds: Present: S1 & S2. Absent: rub, click - Extremities Extremities: pulses symmetrical, No edema Extremity abnormal: right thigh dressing Peripheral Pulses: abnormal (Capillary refill greater than 3.5 seconds) - Abdominal General gastrointestinal: Present: soft, non-tender, non-distended, normal bowel sounds Colostomy bag Female genitourinary: Present: normal Enriquez in place - Integumentary Integumentary: Present: clear, warm, dry - Psychiatric Psychiatric: appropriate mood/affect, - Neurologic Neurologic: CNII-XII intact, moves all extremities, no gait normal Results - Laboratory Findings CBC and BMP: 12/29/21 04:47 12/29/21 04:47 Abnormal lab findings: Abnormal Labs 12/28/21 12/28/21 12/28/21 12:49 12:49 12:49 WBC 34.9 H Hgb 14.7 H Hct 47.7 H MCH MCHC Seg Neuts % (Manual) 90.0 H Lymphocytes % (Manual) 0 L Seg Neutrophils # Man 31.4 H Lymphocytes # (Manual) 0.0 L Monocytes # (Manual) 1.4 H Carbon Dioxide Glucose 362 H POC Glucose Lactic Acid Calcium Alkaline Phosphatase 269 H Total Protein Albumin 3.1 L Ur Specific [place] Salicylates < 0.3 L Acetaminophen 12/28/21 12/28/21 12/28/21 12:49 19:00 19:04 WBC Hgb Hct MCH MCHC Seg Neuts % (Manual) Lymphocytes % (Manual) Seg Neutrophils # Man Lymphocytes # (Manual) Monocytes # (Manual) Carbon Dioxide Glucose POC Glucose Lactic Acid 3.30 H* Calcium Alkaline Phosphatase Total Protein Albumin Ur Specific [place] 1.043 H Salicylates Acetaminophen 5.0 L 12/28/21 12/28/21 12/28/21 20:41 20:56 20:56 WBC Hgb Hct MCH MCHC Seg Neuts % (Manual) Lymphocytes % (Manual) Seg Neutrophils # Man Lymphocytes # (Manual) Monocytes # (Manual) Carbon Dioxide 20 L Glucose 419 H POC Glucose 399 H Lactic Acid 2.80 H* Calcium 8.1 L Alkaline Phosphatase Total Protein Albumin Ur Specific [place] Salicylates Acetaminophen 12/28/21 12/29/21 12/29/21 22:00 00:16 04:47 WBC 30.7 H Hgb Hct MCH 33 H MCHC 35 H Seg Neuts % (Manual) 94.0 H Lymphocytes % (Manual) 2.0 L Seg Neutrophils # Man 28.9 H Lymphocytes # (Manual) 0.6 L Monocytes # (Manual) Carbon Dioxide Glucose POC Glucose 358 H 257 H Lactic Acid Calcium Alkaline Phosphatase Total Protein Albumin Ur Specific [place] Salicylates Acetaminophen 12/29/21 04:47 WBC Hgb Hct MCH MCHC Seg Neuts % (Manual) Lymphocytes % (Manual) Seg Neutrophils # Man Lymphocytes # (Manual) Monocytes # (Manual) Carbon Dioxide Glucose 280 H POC Glucose Lactic Acid Calcium 8.0 L Alkaline Phosphatase 237 H Total Protein 6.0 L Albumin 2.3 L Ur Specific [place] Salicylates Acetaminophen Assessment and Plan Cellulitis- right lower extremity-Necrotizing fascitis s/p debridement Diabetes mellitus- suboptimal control Morbid obesity BMI 37 Tobacco use disorder/Nicotine dependence- ongoing Lactic acidosis -Continue antibiotics, dressing changes per ID -Con discontinue the Enriquez catheter -Glycemic control, accucheck keep blood glucose 140-180 mg/dL Start Lantus insulin, with pre prandial glucose -VTE prophylaxis -Smoking cessation counselling done at the bedside -Nicotine withdrawal precautions -Lifestyle modification, diabetic education The patient does not require insulin infusion therapy at this time, she is afebrile with improving leukocytosis Increase Clindamycin to 900mg q8 and add Zosyn 4.5g to antibiotic regimen. Will de-escalate once culture data is available. Discussed with surgery and hospital medicine service Can transfer to Med-surg with remote Telemetry
--- NOTE | 2021-12-29 11:05 | Progress Note ---
<ORIANA RIOS - Last Filed: 12/29/21 15:58> Assessment and Plan Assessment and plan: This is a 66-year-old female with known past medical history of CVA on DAPT, HTN, DM, Diastolic CHF, GERD, Nicotine Dependence, OA, and Debility admitted for sepsis 2/2 necrotizing fasciitis of the right leg s/p wide excisional debride ment by General Surgery Hospital Course to Date: 12/29: Patient is stable on RA, AAO. Patient is afebrile, repeat lactic acid is less than 2, and leukocytosis is improving. Continue current IV antiobiotics for now, ID consulted for IV Abx management. PRN analgesia for pain control. Wound care management per general surgery, wound care also consulted. Patient's home medications resumed. High dose SSI and lantus added for hyperglycemia. PT and OT eval and treat ordered. Case management is also following for possible placement, per patient she can't go back to her daughter's house. Patient is stable for transfer to Med/Surg with remote telemetry Assessment and Plan #Sepsis #Leukocytosis #Cellulitis of Right Lower Extremity #Necrotizing Fasciitis of the Right Leg #Lactic Acidosis- resolved - 12/28 s/p wide excisional debridement by General Surgery - Leukocytosis downtrending, remains afebrile - Blood culture is pending - Continue current Iv Abx for now - ID consulted - Wound Care per General Surgery - Wound Care also consulted - Continue to F/U on culture date - Daily CBC monitor #Hyperglycemia #H/o of Diabetes - Home regimen resumed - High dose SSI ACHS and basal Lantus - tight glycemic control to promote healing #Hypertension - BP stable - Home antihypertensive resumed - Continue blood pressure monitor per protocol #Acute Pain #Nicotine Dependence - Per patient pain is control with current regimen - Continue PRN analgesics for pain management - Nicotine patch added - Smoking cessation counseling #GI/DVT Prophylaxis - PPI- Pepcid - SCDs to bilateral lower extremities while in bed #Debility - PT/OT eval and treat ordered #Discharge Planning - Per patient she can not go back to her daughter's house, she would like assistance with placement - Case management on the case The high probability of a clinically significant, sudden or life threatening de terioration of the [multiple] system(s) required my full and direct attention, intervention and personal management. The aggregate critical care time was [60] minutes. This time is in addition to time spent performing reported procedures but includes the following: [x] Data Review and interpretation [x] Patient assessment and monitoring of vital signs [x] Documentation [x] Medication orders and management Disposition Plan: ICU Total Time Spent with Patient (Minutes): 60 History Interval history: Patient seen and examined at the bedside. Patient is stable on RA, Awake and alert, following commands. Patient c/o of RLE pain that she reported is currently control with current pain management regimen. RLE dressing noted, CDI. Otherwise, FREDIS overnight. Hospitalist Physical - Constitutional Vitals: Temp Pulse Resp BP Pulse Ox 98.6 F 105 H 20 118/67 93 12/29/21 08:00 12/29/21 00:45 12/29/21 05:00 12/29/21 00:45 12/29/21 05:00 General appearance: Present: no acute distress, obese - EENT Eyes: Present: PERRL, EOM intact ENT: hearing intact - Neck Neck: Present: normal ROM - Respiratory Respiratory effort: normal Respiratory: bilateral: diminished - Cardiovascular Rhythm: regular Heart Sounds: Present: S1 & S2 - Extremities Extremities: no ischemia, pulses intact, pulses symmetrical, abnormal (RLE woun ds, dressing present CDI) Extremity abnormal: edema - Peripheral Assessment Generalized Edema Type: Non-pitting Edema Degree: 1+ Capillary Refill: < 3 seconds Skin Temperature: Warm Peripheral Pulses: within normal limits - Abdominal General gastrointestinal: soft, non-distended, normal bowel sounds - Integumentary Integumentary: Present: warm, dry - Psychiatric Psychiatric: appropriate mood/affect, cooperative - Neurologic Neurologic: CNII-XII intact, moves all extremities - Allied Health Allied health notes reviewed: nursing Results - Labs CBC & Chem 7: 12/29/21 04:47 12/29/21 04:47 Labs: Laboratory Last Values WBC 30.7 K/mm3 (4.5-11.0) H 12/29/21 04:47 RBC 3.93 M/mm3 (3.65-5.03) 12/29/21 04:47 Hgb 12.8 gm/dl (10.1-14.3) 12/29/21 04:47 Hct 36.9 % (30.3-42.9) D 12/29/21 04:47 MCV 94 fl (79-97) 12/29/21 04:47 MCH 33 pg (28-32) H 12/29/21 04:47 MCHC 35 % (30-34) H 12/29/21 04:47 RDW 14.4 % (13.2-15.2) 12/29/21 04:47 Plt Count 285 K/mm3 (140-440) 12/29/21 04:47 Add Manual Diff Complete 12/29/21 04:47 Total Counted 100 12/29/21 04:47 Seg Neutrophils % Video Network Engineer 12/28/21 12:49 Seg Neuts % (Manual) 94.0 % (40.0-70.0) H 12/29/21 04:47 Band Neutrophils % 2.0 % 12/29/21 04:47 Lymphocytes % (Manual) 2.0 % (13.4-35.0) L 12/29/21 04:47 Reactive Lymphs % (Man) 0 % 12/29/21 04:47 Monocytes % (Manual) 2.0 % (0.0-7.3) 12/29/21 04:47 Eosinophils % (Manual) 0 % (0.0-4.3) 12/29/21 04:47 Basophils % (Manual) 0 % (0.0-1.8) 12/29/21 04:47 Metamyelocytes % 0 % 12/29/21 04:47 Myelocytes % 0 % 12/29/21 04:47 Promyelocytes % 0 % 12/29/21 04:47 Blast Cells % 0 % 12/29/21 04:47 Nucleated RBC % Not Reportable 12/29/21 04:47 Seg Neutrophils # Man 28.9 K/mm3 (1.8-7.7) H 12/29/21 04:47 Band Neutrophils # 0.6 K/mm3 12/29/21 04:47 Lymphocytes # (Manual) 0.6 K/mm3 (1.2-5.4) L 12/29/21 04:47 Abs React Lymphs (Man) 0.0 K/mm3 12/29/21 04:47 Monocytes # (Manual) 0.6 K/mm3 (0.0-0.8) 12/29/21 04:47 Eosinophils # (Manual) 0.0 K/mm3 (0.0-0.4) 12/29/21 04:47 Basophils # (Manual) 0.0 K/mm3 (0.0-0.1) 12/29/21 04:47 Metamyelocytes # 0.0 K/mm3 12/29/21 04:47 Myelocytes # 0.0 K/mm3 12/29/21 04:47 Promyelocytes # 0.0 K/mm3 12/29/21 04:47 Blast Cells # 0.0 K/mm3 12/29/21 04:47 WBC Morphology Not Reportable 12/29/21 04:47 Hypersegmented Neuts Not Reportable 12/29/21 04:47 Hyposegmented Neuts Not Reportable 12/29/21 04:47 Hypogranular Neuts Not Reportable 12/29/21 04:47 Smudge Cells Not Reportable 12/29/21 04:47 Toxic Granulation Not Reportable 12/29/21 04:47 Toxic Vacuolation Not Reportable 12/29/21 04:47 Dohle Bodies Not Reportable 12/29/21 04:47 Pelger-Huet Anomaly Not Reportable 12/29/21 04:47 Kennedi Rods Not Reportable 12/29/21 04:47 Platelet Estimate Consistent w auto 12/29/21 04:47 Clumped Platelets Not Reportable 12/29/21 04:47 Plt Clumps, EDTA Not Reportable 12/29/21 04:47 Large Platelets Few 12/29/21 04:47 Giant Platelets Not Reportable 12/29/21 04:47 Platelet Satelliting Not Reportable 12/29/21 04:47 Plt Morphology Comment Not Reportable 12/29/21 04:47 RBC Morphology Normal 12/29/21 04:47 Dimorphic RBCs Not Reportable 12/29/21 04:47 Polychromasia Not Reportable 12/29/21 04:47 Hypochromasia Not Reportable 12/29/21 04:47 Poikilocytosis Not Reportable 12/29/21 04:47 Anisocytosis Not Reportable 12/29/21 04:47 Microcytosis Not Reportable 12/29/21 04:47 Macrocytosis Not Reportable 12/29/21 04:47 Spherocytes Not Reportable 12/29/21 04:47 Pappenheimer Bodies Not Reportable 12/29/21 04:47 Sickle Cells Not Reportable 12/29/21 04:47 Target Cells Not Reportable 12/29/21 04:47 Tear Drop Cells Not Reportable 12/29/21 04:47 Ovalocytes Not Reportable 12/29/21 04:47 Helmet Cells Not Reportable 12/29/21 04:47 Freeman-Timberon Bodies Not Reportable 12/29/21 04:47 Castell Rings Not Reportable 12/29/21 04:47 Del Valle Cells Not Reportable 12/29/21 04:47 Bite Cells Not Reportable 12/29/21 04:47 Crenated Cell Not Reportable 12/29/21 04:47 Elliptocytes Not Reportable 12/29/21 04:47 Acanthocytes (Spur) Not Reportable 12/29/21 04:47 Rouleaux Not Reportable 12/29/21 04:47 Hemoglobin C Crystals Not Reportable 12/29/21 04:47 Schistocytes Not Reportable 12/29/21 04:47 Malaria parasites Not Reportable 12/29/21 04:47 [place] Bodies Not Reportable 12/29/21 04:47 Hem Pathologist Commnt No 12/29/21 04:47 Sodium 144 mmol/L (137-145) 12/29/21 04:47 Potassium 3.6 mmol/L (3.6-5.0) 12/29/21 04:47 Chloride 106.1 mmol/L (98-107) 12/29/21 04:47 Carbon Dioxide 23 mmol/L (22-30) 12/29/21 04:47 Anion Gap 19 mmol/L 12/29/21 04:47 BUN 12 mg/dL (7-17) 12/29/21 04:47 Creatinine 0.8 mg/dL (0.6-1.2) 12/29/21 04:47 Estimated GFR > 60 ml/min 12/29/21 04:47 BUN/Creatinine Ratio 15 % 12/29/21 04:47 Glucose 280 mg/dL (65-100) H 12/29/21 04:47 POC Glucose 257 mg/dL (70-105) H 12/29/21 00:16 Lactic Acid 2.80 mmol/L (0.7-2.0) H* 12/28/21 20:56 Calcium 8.0 mg/dL (8.4-10.2) L 12/29/21 04:47 Total Bilirubin 0.60 mg/dL (0.1-1.2) 12/29/21 04:47 AST 38 units/L (5-40) 12/29/21 04:47 ALT 31 units/L (7-56) 12/29/21 04:47 Alkaline Phosphatase 237 units/L (35-129) H 12/29/21 04:47 Total Protein 6.0 g/dL (6.3-8.2) L 12/29/21 04:47 Albumin 2.3 g/dL (3.9-5) L 12/29/21 04:47 Albumin/Globulin Ratio 0.6 % 12/29/21 04:47 Urine Color Yellow (Yellow) 12/28/21 19:00 Urine Turbidity Clear (Clear) 12/28/21 19:00 Urine pH 6.0 (5.0-7.0) 12/28/21 19:00 Ur Specific [place] 1.043 (1.003-1.030) H 12/28/21 19:00 Urine Protein 30 mg/dl mg/dL (Negative) 12/28/21 19:00 Urine Glucose (UA) >=500 mg/dL (Negative) 12/28/21 19:00 Urine Ketones Neg mg/dL (Negative) 12/28/21 19:00 Urine Blood Neg (Negative) 12/28/21 19:00 Urine Nitrite Neg (Negative) 12/28/21 19:00 Urine Bilirubin Neg (Negative) 12/28/21 19:00 Urine Urobilinogen 4.0 mg/dL (<2.0) 12/28/21 19:00 Ur Leukocyte Esterase Neg (Negative) 12/28/21 19:00 Urine WBC (Auto) 6.0 /HPF (0.0-6.0) 12/28/21 19:00 Urine RBC (Auto) 14.0 /HPF (0.0-6.0) 12/28/21 19:00 U Epithel Cells (Auto) 2.0 /HPF (0-13.0) 12/28/21 19:00 Urine Bacteria (Auto) 1+ /HPF (Negative) 12/28/21 19:00 Urine Mucus Few /HPF 12/28/21 19:00 Urine Yeast (Budding) 1+ /HPF 12/28/21 19:00 Salicylates < 0.3 mg/dL (2.8-20.0) L 12/28/21 12:49 Urine Opiates Screen Presumptive negative 12/28/21 19:00 Urine Methadone Screen Presumptive negative 12/28/21 19:00 Acetaminophen 5.0 ug/mL (10.0-30.0) L 12/28/21 12:49 Ur Barbiturates Screen Presumptive negative 12/28/21 19:00 Ur Phencyclidine Scrn Presumptive negative 12/28/21 19:00 Ur Amphetamines Screen Presumptive negative 12/28/21 19:00 U Benzodiazepines Scrn Presumptive negative 12/28/21 19:00 Urine Cocaine Screen Presumptive negative 12/28/21 19:00 U Marijuana (THC) Screen Presumptive positive 12/28/21 19:00 Drugs of Abuse Note Disclamer 12/28/21 19:00 Plasma/Serum Alcohol < 0.01 % (0-0.07) 12/28/21 12:49 Blood Type A POSITIVE 12/28/21 15:20 Antibody Screen Negative 12/28/21 15:20 Microbiology: Microbiology 12/28/21 14:56 Peripheral/Venous Blood Culture - Preliminary Culture in Progress 12/28/21 14:56 Peripheral/Venous Blood Culture - Preliminary Culture in Progress Enriquez/IV: Voiding Method Indwelling Catheter Active Medications - Current Medications Current Medications: Generic Name Dose Route Start Last Admin Trade Name Freq PRN Reason Stop Dose Admin Acetaminophen 650 mg 12/28/21 20:33 Acetaminophen 325 Mg Tab PO Q8H PRN Pain, Mild (1-3) Albuterol 2.5 mg 12/28/21 20:31 Albuterol 2.5 Mg/3 Ml Nebu IH Q4HRT PRN Shortness Of Breath Dextrose 0 ml 12/28/21 20:32 Dextrose 10% *Hypoglycemia IV DIRECT PRN Hypoglycemia Protocol Hydromorphone HCl 0.25 mg 12/28/21 20:31 Hydromorphone 1 Mg/1 Ml Inj IV Q6H PRN Pain, Moderate (4-6) Hydromorphone HCl 0.5 mg 12/28/21 20:31 12/29/21 10:17 Hydromorphone 1 Mg/1 Ml Inj IV 0.5 mg Q6H PRN Administration Pain , Severe (7-10) Clindamycin HCl 600 mg in 50 mls @ 100 mls/hr 12/28/21 15:00 12/29/21 10:19 Cleocin 600 Mg/50 Ml IV 100 mls/hr Q8H BAUTISTA Administration Protocol Insulin Human Lispro 0 unit 12/29/21 00:00 Insulin Lispro 100 Unit/Ml SUB-Q Q6HR [facility]UTIST[facility] Protocol Ondansetron HCl 4 mg 12/28/21 20:31 Ondansetron 4 Mg/2 Ml Inj IV Q8H PRN Nausea And Vomiting Sodium Chloride 10 ml 12/28/21 22:00 12/29/21 10:19 Sodium Chloride 0.9% 10 Ml Flush Syringe IV 10 ml BID BAUTISTA Administration Sodium Chloride 10 ml 12/28/21 20:31 Sodium Chloride 0.9% 10 Ml Flush Syringe IV PRN PRN LINE FLUSH Tramadol HCl 50 mg 12/28/21 14:22 12/28/21 16:51 Tramadol 50 Mg Tab PO 50 mg Q6H PRN Administration Pain , Severe (7-10) <SEDA SWANN E - Last Filed: 12/29/21 16:38> Assessment and Plan Assessment and plan: I saw and evaluated the patient. I agree with the findings and the plan of care as documented in the Nurse Practitioner's~note, with the following corrections and additions. Hospitalist Physical - Constitutional Vitals: Temp Pulse Resp BP Pulse Ox 97.8 F 94 H 18 116/60 90 12/29/21 12:00 12/29/21 14:00 12/29/21 14:00 12/29/21 14:00 12/29/21 14:00 Results - Labs CBC & Chem 7: 12/29/21 04:47 12/29/21 04:47 Labs: Laboratory Last Values WBC 30.7 K/mm3 (4.5-11.0) H 12/29/21 04:47 RBC 3.93 M/mm3 (3.65-5.03) 12/29/21 04:47 Hgb 12.8 gm/dl (10.1-14.3) 12/29/21 04:47 Hct 36.9 % (30.3-42.9) D 12/29/21 04:47 MCV 94 fl (79-97) 12/29/21 04:47 MCH 33 pg (28-32) H 12/29/21 04:47 MCHC 35 % (30-34) H 12/29/21 04:47 RDW 14.4 % (13.2-15.2) 12/29/21 04:47 Plt Count 285 K/mm3 (140-440) 12/29/21 04:47 Add Manual Diff Complete 12/29/21 04:47 Total Counted 100 12/29/21 04:47 Seg Neutrophils % Video Network Engineer 12/28/21 12:49 Seg Neuts % (Manual) 94.0 % (40.0-70.0) H 12/29/21 04:47 Band Neutrophils % 2.0 % 12/29/21 04:47 Lymphocytes % (Manual) 2.0 % (13.4-35.0) L 12/29/21 04:47 Reactive Lymphs % (Man) 0 % 12/29/21 04:47 Monocytes % (Manual) 2.0 % (0.0-7.3) 12/29/21 04:47 Eosinophils % (Manual) 0 % (0.0-4.3) 12/29/21 04:47 Basophils % (Manual) 0 % (0.0-1.8) 12/29/21 04:47 Metamyelocytes % 0 % 12/29/21 04:47 Myelocytes % 0 % 12/29/21 04:47 Promyelocytes % 0 % 12/29/21 04:47 Blast Cells % 0 % 12/29/21 04:47 Nucleated RBC % Not Reportable 12/29/21 04:47 Seg Neutrophils # Man 28.9 K/mm3 (1.8-7.7) H 12/29/21 04:47 Band Neutrophils # 0.6 K/mm3 12/29/21 04:47 Lymphocytes # (Manual) 0.6 K/mm3 (1.2-5.4) L 12/29/21 04:47 Abs React Lymphs (Man) 0.0 K/mm3 12/29/21 04:47 Monocytes # (Manual) 0.6 K/mm3 (0.0-0.8) 12/29/21 04:47 Eosinophils # (Manual) 0.0 K/mm3 (0.0-0.4) 12/29/21 04:47 Basophils # (Manual) 0.0 K/mm3 (0.0-0.1) 12/29/21 04:47 Metamyelocytes # 0.0 K/mm3 12/29/21 04:47 Myelocytes # 0.0 K/mm3 12/29/21 04:47 Promyelocytes # 0.0 K/mm3 12/29/21 04:47 Blast Cells # 0.0 K/mm3 12/29/21 04:47 WBC Morphology Not Reportable 12/29/21 04:47 Hypersegmented Neuts Not Reportable 12/29/21 04:47 Hyposegmented Neuts Not Reportable 12/29/21 04:47 Hypogranular Neuts Not Reportable 12/29/21 04:47 Smudge Cells Not Reportable 12/29/21 04:47 Toxic Granulation Not Reportable 12/29/21 04:47 Toxic Vacuolation Not Reportable 12/29/21 04:47 Dohle Bodies Not Reportable 12/29/21 04:47 Pelger-Huet Anomaly Not Reportable 12/29/21 04:47 Kennedi Rods Not Reportable 12/29/21 04:47 Platelet Estimate Consistent w auto 12/29/21 04:47 Clumped Platelets Not Reportable 12/29/21 04:47 Plt Clumps, EDTA Not Reportable 12/29/21 04:47 Large Platelets Few 12/29/21 04:47 Giant Platelets Not Reportable 12/29/21 04:47 Platelet Satelliting Not Reportable 12/29/21 04:47 Plt Morphology Comment Not Reportable 12/29/21 04:47 RBC Morphology Normal 12/29/21 04:47 Dimorphic RBCs Not Reportable 12/29/21 04:47 Polychromasia Not Reportable 12/29/21 04:47 Hypochromasia Not Reportable 12/29/21 04:47 Poikilocytosis Not Reportable 12/29/21 04:47 Anisocytosis Not Reportable 12/29/21 04:47 Microcytosis Not Reportable 12/29/21 04:47 Macrocytosis Not Reportable 12/29/21 04:47 Spherocytes Not Reportable 12/29/21 04:47 Pappenheimer Bodies Not Reportable 12/29/21 04:47 Sickle Cells Not Reportable 12/29/21 04:47 Target Cells Not Reportable 12/29/21 04:47 Tear Drop Cells Not Reportable 12/29/21 04:47 Ovalocytes Not Reportable 12/29/21 04:47 Helmet Cells Not Reportable 12/29/21 04:47 Freeman-Timberon Bodies Not Reportable 12/29/21 04:47 Castell Rings Not Reportable 12/29/21 04:47 Del Valle Cells Not Reportable 12/29/21 04:47 Bite Cells Not Reportable 12/29/21 04:47 Crenated Cell Not Reportable 12/29/21 04:47 Elliptocytes Not Reportable 12/29/21 04:47 Acanthocytes (Spur) Not Reportable 12/29/21 04:47 Rouleaux Not Reportable 12/29/21 04:47 Hemoglobin C Crystals Not Reportable 12/29/21 04:47 Schistocytes Not Reportable 12/29/21 04:47 Malaria parasites Not Reportable 12/29/21 04:47 [place] Bodies Not Reportable 12/29/21 04:47 Hem Pathologist Commnt No 12/29/21 04:47 Sodium 144 mmol/L (137-145) 12/29/21 04:47 Potassium 3.6 mmol/L (3.6-5.0) 12/29/21 04:47 Chloride 106.1 mmol/L (98-107) 12/29/21 04:47 Carbon Dioxide 23 mmol/L (22-30) 12/29/21 04:47 Anion Gap 19 mmol/L 12/29/21 04:47 BUN 12 mg/dL (7-17) 12/29/21 04:47 Creatinine 0.8 mg/dL (0.6-1.2) 12/29/21 04:47 Estimated GFR > 60 ml/min 12/29/21 04:47 BUN/Creatinine Ratio 15 % 12/29/21 04:47 Glucose 280 mg/dL (65-100) H 12/29/21 04:47 POC Glucose 321 mg/dL (70-105) H 12/29/21 11:25 Lactic Acid 1.60 mmol/L (0.7-2.0) 12/29/21 13:08 Calcium 8.0 mg/dL (8.4-10.2) L 12/29/21 04:47 Total Bilirubin 0.60 mg/dL (0.1-1.2) 12/29/21 04:47 AST 38 units/L (5-40) 12/29/21 04:47 ALT 31 units/L (7-56) 12/29/21 04:47 Alkaline Phosphatase 237 units/L (35-129) H 12/29/21 04:47 Total Protein 6.0 g/dL (6.3-8.2) L 12/29/21 04:47 Albumin 2.3 g/dL (3.9-5) L 12/29/21 04:47 Albumin/Globulin Ratio 0.6 % 12/29/21 04:47 Urine Color Yellow (Yellow) 12/28/21 19:00 Urine Turbidity Clear (Clear) 12/28/21 19:00 Urine pH 6.0 (5.0-7.0) 12/28/21 19:00 Ur Specific [place] 1.043 (1.003-1.030) H 12/28/21 19:00 Urine Protein 30 mg/dl mg/dL (Negative) 12/28/21 19:00 Urine Glucose (UA) >=500 mg/dL (Negative) 12/28/21 19:00 Urine Ketones Neg mg/dL (Negative) 12/28/21 19:00 Urine Blood Neg (Negative) 12/28/21 19:00 Urine Nitrite Neg (Negative) 12/28/21 19:00 Urine Bilirubin Neg (Negative) 12/28/21 19:00 Urine Urobilinogen 4.0 mg/dL (<2.0) 12/28/21 19:00 Ur Leukocyte Esterase Neg (Negative) 12/28/21 19:00 Urine WBC (Auto) 6.0 /HPF (0.0-6.0) 12/28/21 19:00 Urine RBC (Auto) 14.0 /HPF (0.0-6.0) 12/28/21 19:00 U Epithel Cells (Auto) 2.0 /HPF (0-13.0) 12/28/21 19:00 Urine Bacteria (Auto) 1+ /HPF (Negative) 12/28/21 19:00 Urine Mucus Few /HPF 12/28/21 19:00 Urine Yeast (Budding) 1+ /HPF 12/28/21 19:00 Salicylates < 0.3 mg/dL (2.8-20.0) L 12/28/21 12:49 Urine Opiates Screen Presumptive negative 12/28/21 19:00 Urine Methadone Screen Presumptive negative 12/28/21 19:00 Acetaminophen 5.0 ug/mL (10.0-30.0) L 12/28/21 12:49 Ur Barbiturates Screen Presumptive negative 12/28/21 19:00 Ur Phencyclidine Scrn Presumptive negative 12/28/21 19:00 Ur Amphetamines Screen Presumptive negative 12/28/21 19:00 U Benzodiazepines Scrn Presumptive negative 12/28/21 19:00 Urine Cocaine Screen Presumptive negative 12/28/21 19:00 U Marijuana (THC) Screen Presumptive positive 12/28/21 19:00 Drugs of Abuse Note Disclamer 12/28/21 19:00 Plasma/Serum Alcohol < 0.01 % (0-0.07) 12/28/21 12:49 Blood Type A POSITIVE 12/28/21 15:20 Antibody Screen Negative 12/28/21 15:20 Microbiology: Microbiology 12/28/21 14:56 Peripheral/Venous Blood Culture - Preliminary Culture in Progress 12/28/21 14:56 Peripheral/Venous Blood Culture - Preliminary Culture in Progress Enriquez/IV: Voiding Method Indwelling Catheter Active Medications - Current Medications Current Medications: Generic Name Dose Route Start Last Admin Trade Name Freq PRN Reason Stop Dose Admin Acetaminophen 650 mg 12/28/21 20:33 Acetaminophen 325 Mg Tab PO Q8H PRN Pain, Mild (1-3) Albuterol 2.5 mg 12/28/21 20:31 Albuterol 2.5 Mg/3 Ml Nebu IH Q4HRT PRN Shortness Of Breath Amlodipine Besylate 5 mg 12/30/21 10:00 Amlodipine 5 Mg Tab PO QDAY [facility] Aspirin 325 mg 12/30/21 10:00 Aspirin 325 Mg Tab PO QDAY [facility] Atorvastatin Calcium 80 mg 12/29/21 22:00 Atorvastatin 40 Mg Tab PO QHS [facility] Clopidogrel Bisulfate 75 mg 12/30/21 10:00 Clopidogrel 75 Mg Tab PO QDAY [facility] Dextrose 0 ml 12/28/21 20:32 Dextrose 10% *Hypoglycemia IV DIRECT PRN Hypoglycemia Protocol Dextrose 50 ml 12/29/21 11:13 Dextrose 50% In Water (25gm) 50 Ml Syringe IV Q30MIN PRN Hypoglycemia Protocol Duloxetine HCl 60 mg 12/30/21 10:00 Duloxetine 30 Mg Cap PO QDAY [facility] Famotidine 10 mg 02/19/22 22:00 Famotidine 10 Mg Tab PO BID [facility] Gabapentin 300 mg 12/29/21 22:00 Gabapentin 300 Mg Cap PO BID [facility] Hydromorphone HCl 0.25 mg 12/28/21 20:31 Hydromorphone 1 Mg/1 Ml Inj IV Q6H PRN Pain, Moderate (4-6) Hydromorphone HCl 0.5 mg 12/28/21 20:31 12/29/21 10:17 Hydromorphone 1 Mg/1 Ml Inj IV 0.5 mg Q6H PRN Administration Pain , Severe (7-10) Clindamycin HCl 900 mg in 50 mls @ 100 mls/hr 12/29/21 18:00 Cleocin 900 Mg/50 Ml IV Q8H [facility] Protocol Insulin Glargine 25 units 12/29/21 22:00 Insulin Glargine 100 Units/Ml SUB-Q QHS [facility] Insulin Human Lispro 0 unit 12/29/21 11:30 12/29/21 12:14 Insulin Lispro 100 Unit/Ml SUB-Q 8 unit ACHS [facility] Administration Protocol Lisinopril 10 mg 12/30/21 10:00 Lisinopril 10 Mg Tab PO QDAY [facility] Nicotine 14 mg 12/29/21 17:00 Nicotine 14 Mg/24 Hr Patch TD QDAY [facility] Ondansetron HCl 4 mg 12/28/21 20:31 Ondansetron 4 Mg/2 Ml Inj IV Q8H PRN Nausea And Vomiting Sodium Chloride 10 ml 12/28/21 22:00 12/29/21 10:19 Sodium Chloride 0.9% 10 Ml Flush Syringe IV 10 ml BID BAUTISTA Administration Sodium Chloride 10 ml 12/28/21 20:31 Sodium Chloride 0.9% 10 Ml Flush Syringe IV PRN PRN LINE FLUSH Tramadol HCl 50 mg 12/28/21 14:22 12/28/21 16:51 Tramadol 50 Mg Tab PO 50 mg Q6H PRN Administration Pain , Severe (7-10)
[2021-12-29] MEDS ORDERED: DEXTROSE 50% IN WATER (25GM) 50 ML SYRINGE IV PRN (11:13)
[2021-12-29] MEDS: INSULIN LISPRO 100 UNIT/ML SUB-Q SCH ×3 (12:14→22:17)
--- NOTE | 2021-12-29 13:01 | Progress Note ---
Assessment and Plan 66-year-old female postop day 0 status post wide excisional debridement of right proximal leg secondary to necrotizing fasciitis. Patient is afebrile and stable with improvement in leukocytosis and tachycardia. Continue tight glucose con trol and antibiotics. We will do first dressing change tomorrow to determine the need for further monzon rgical debridement. Subjective Date of service: 12/29/21 Narrative: No acute events overnight since surgery. Patient says that she has improved pain compared to prior to surgery. Objective Vital Signs - 12hr 12/29/21 12/29/21 12/29/21 01:48 03:00 04:00 Temperature 97.6 F Pulse Rate [ From Monitor] Respiratory 20 Rate O2 Sat by Pulse 93 93 Oximetry 12/29/21 12/29/21 12/29/21 05:00 07:00 08:00 Temperature 98.6 F Pulse Rate [ 94 H From Monitor] Respiratory 20 15 Rate O2 Sat by Pulse 93 97 Oximetry - General physical appearance well developed, no distress, no pain, obese - Eyes PERRL, normal occular movement - ENT no hearing loss - Respiratory normal expansion, clear to auscultation - Abdomen soft, not tender, other (Ostomy in place with air and stool in the bag) - Integumentary other (Bandage clean dry and intact) - Labs 12/29/21 04:47 12/29/21 04:47 Diabetes panel 12/28/21 12/28/21 12/29/21 Range/Units 12:49 20:56 04:47 Sodium 143 138 144 (137-145) mmol/L Potassium 3.7 3.6 3.6 (3.6-5.0) mmol/L Chloride 102.8 102.7 106.1 (98-107) mmol/L Carbon Dioxide 23 20 L 23 (22-30) mmol/L BUN 16 14 12 (7-17) mg/dL Creatinine 0.9 0.8 0.8 (0.6-1.2) mg/dL Glucose 362 H 419 H 280 H (65-100) mg/dL Calcium 9.1 8.1 L 8.0 L (8.4-10.2) mg/dL AST 25 38 (5-40) units/L ALT 25 31 (7-56) units/L Alkaline Phosphatase 269 H 237 H (35-129) units/L Total Protein 7.1 6.0 L (6.3-8.2) g/dL Albumin 3.1 L 2.3 L (3.9-5) g/dL Calcium panel 12/28/21 12/28/21 12/29/21 Range/Units 12:49 20:56 04:47 Calcium 9.1 8.1 L 8.0 L (8.4-10.2) mg/dL Albumin 3.1 L 2.3 L (3.9-5) g/dL Pituitary panel 12/28/21 12/28/21 12/29/21 Range/Units 12:49 20:56 04:47 Sodium 143 138 144 (137-145) mmol/L Potassium 3.7 3.6 3.6 (3.6-5.0) mmol/L Chloride 102.8 102.7 106.1 (98-107) mmol/L Carbon Dioxide 23 20 L 23 (22-30) mmol/L BUN 16 14 12 (7-17) mg/dL Creatinine 0.9 0.8 0.8 (0.6-1.2) mg/dL Glucose 362 H 419 H 280 H (65-100) mg/dL Calcium 9.1 8.1 L 8.0 L (8.4-10.2) mg/dL Adrenal panel 12/28/21 12/28/21 12/29/21 Range/Units 12:49 20:56 04:47 Sodium 143 138 144 (137-145) mmol/L Potassium 3.7 3.6 3.6 (3.6-5.0) mmol/L Chloride 102.8 102.7 106.1 (98-107) mmol/L Carbon Dioxide 23 20 L 23 (22-30) mmol/L BUN 16 14 12 (7-17) mg/dL Creatinine 0.9 0.8 0.8 (0.6-1.2) mg/dL Glucose 362 H 419 H 280 H (65-100) mg/dL Calcium 9.1 8.1 L 8.0 L (8.4-10.2) mg/dL Total Bilirubin 0.70 0.60 (0.1-1.2) mg/dL AST 25 38 (5-40) units/L ALT 25 31 (7-56) units/L Alkaline Phosphatase 269 H 237 H (35-129) units/L Total Protein 7.1 6.0 L (6.3-8.2) g/dL Albumin 3.1 L 2.3 L (3.9-5) g/dL
[2021-12-29] MEDS ORDERED: INSULIN GLARGINE 100 UNITS/ML SUB-Q ONE (13:21)
[2021-12-29] MEDS ORDERED: FLU VACC QUAD 2021-22(6MOS UP)/PF 60 MCG/0.5 ML SYRINGE IM ONE (13:49)
[2021-12-29] MEDS: NICOTINE 14 MG/24 HR PATCH TD SCH (18:43)
[2021-12-29] MEDS ORDERED: INSULIN GLARGINE 100 UNITS/ML SUB-Q SCH (22:00)
[2021-12-29] MEDS: GABAPENTIN 300 MG CAP PO SCH (22:16)
[2021-12-29] MEDS: MEROPENEM/NS 500 MG/50 ML 500 MG/50 ML BAG IV SCH (22:18)
[2021-12-29] MEDS: FAMOTIDINE 10 MG TAB PO SCH (22:19)
[2021-12-30] MEDS: HYDROmorphone 1 MG/1 ML INJ IV PRN ×3 (00:19→09:45)
[2021-12-30] MEDS: MEROPENEM/NS 500 MG/50 ML 500 MG/50 ML BAG IV SCH ×4 (03:45→22:37)
[2021-12-30 05:27] LABS: Hematocrit 37.8 % (30.3-42.9); Hemoglobin 12.3 gm/dl (10.1-14.3); Mean Corpuscular HGB Conc 33 % (30-34); Mean Corpuscular Volume 95 fl (79-97); Platelet Count 337 K/mm3 (140-440); Red Cell Distribution Width 14.3 % (13.2-15.2)
[2021-12-30 05:30] LABS: BUN/Creatinine Ratio 10; Blood Urea Nitrogen 10 mg/dL (7-17); Calcium 8.3 mg/dL (8.4-10.2); Hemolysis Index 10
[2021-12-30] MEDS: INSULIN LISPRO 100 UNIT/ML SUB-Q SCH ×4 (07:30→22:38)
--- NOTE | 2021-12-30 08:22 | Progress Note ---
Assessment and Plan Assessment and plan: 66-year-old female with known past medical history of CVA on DAPT, HTN, DM, Diastolic CHF, GERD, Nicotine Dependence, OA, and Debility admitted for sepsis 2/2 necrotizing fasciitis of the right leg s/p wide excisional debridement by General Surgery. Plan for additional debridement tomorrow. #Sepsis #Leukocytosis-improving #Cellulitis of Right Lower Extremity #Necrotizing Fasciitis of the Right Leg #Lactic Acidosis- resolved - 12/28 s/p wide excisional debridement - Leukocytosis downtrending, remains afebrile - Blood culture NG x24hrs - Continue clindamycin and merrem for now; ID consulted, assistance appreciated - General Surgery following, assistance appreciated; plan for additional debridement tomorrow #Hyperglycemia #H/o of Diabetes - Continue high dose SSI and lantus 25U qhs - tight glycemic control to promote healing; goal glucose 140-180 #Hypertension - BP stable - Home antihypertensive resumed - Continue blood pressure monitor per protocol #Hypokalemia - will replete and monitor #Nicotine Dependence - Nicotine patch added - Smoking cessation counseling, supportive care, behavior change counseling, +15 minutes. #Debility - PT/OT consulted #Discharge Planning - Per patient she can not go back to her daughter's house, she would like assistance with placement - Case management consulted History Interval history: No acute events overnight. Patient reports pain in leg controlled with medication given. She has no current complaints at this time. Hospitalist Physical - Physical exam Narrative exam: GENERAL: Well-developed well-nourished. Sitting on the side of the bed in no acute distress. HEENT: Normocephalic. Atraumatic. NECK: Supple. CHEST/LUNGS: CTAB on room air HEART/CARDIOVASCULAR: RRR. No murmur, rubs or gallops appreciated. ABDOMEN: +BS. NT/ND. SKIN: No rashes noted. NEURO: No focal motor deficit. Follows all commands. MUSCULOSKELETAL: No joint effusion EXTREMITIES: R thigh bandaged. No swelling or edema appreciated. PSYCH: Cooperative. - Constitutional Vitals: Temp Pulse Resp BP Pulse Ox 98.0 F 95 H 18 158/83 91 12/30/21 04:26 12/30/21 04:26 12/30/21 04:26 12/30/21 04:12/30/21 04:26 General appearance: Present: no acute distress, obese Results - Labs CBC & Chem 7: 12/30/21 04:42 12/30/21 04:42 Labs: Laboratory Last Values WBC 19.9 K/mm3 (4.5-11.0) H 12/30/21 04:42 RBC 4.00 M/mm3 (3.65-5.03) 12/30/21 04:42 Hgb 12.3 gm/dl (10.1-14.3) 12/30/21 04:42 Hct 37.8 % (30.3-42.9) 12/30/21 04:42 MCV 95 fl (79-97) 12/30/21 04:42 MCH 31 pg (28-32) 12/30/21 04:42 MCHC 33 % (30-34) 12/30/21 04:42 RDW 14.3 % (13.2-15.2) 12/30/21 04:42 Plt Count 337 K/mm3 (140-440) 12/30/21 04:42 Add Manual Diff Complete 12/29/21 04:47 Total Counted 100 12/29/21 04:47 Seg Neutrophils % Clinical Application Consultant 12/28/21 12:49 Seg Neuts % (Manual) 94.0 % (40.0-70.0) H 12/29/21 04:47 Band Neutrophils % 2.0 % 12/29/21 04:47 Lymphocytes % (Manual) 2.0 % (13.4-35.0) L 12/29/21 04:47 Reactive Lymphs % (Man) 0 % 12/29/21 04:47 Monocytes % (Manual) 2.0 % (0.0-7.3) 12/29/21 04:47 Eosinophils % (Manual) 0 % (0.0-4.3) 12/29/21 04:47 Basophils % (Manual) 0 % (0.0-1.8) 12/29/21 04:47 Metamyelocytes % 0 % 12/29/21 04:47 Myelocytes % 0 % 12/29/21 04:47 Promyelocytes % 0 % 12/29/21 04:47 Blast Cells % 0 % 12/29/21 04:47 Nucleated RBC % Not Reportable 12/29/21 04:47 Seg Neutrophils # Man 28.9 K/mm3 (1.8-7.7) H 12/29/21 04:47 Band Neutrophils # 0.6 K/mm3 12/29/21 04:47 Lymphocytes # (Manual) 0.6 K/mm3 (1.2-5.4) L 12/29/21 04:47 Abs React Lymphs (Man) 0.0 K/mm3 12/29/21 04:47 Monocytes # (Manual) 0.6 K/mm3 (0.0-0.8) 12/29/21 04:47 Eosinophils # (Manual) 0.0 K/mm3 (0.0-0.4) 12/29/21 04:47 Basophils # (Manual) 0.0 K/mm3 (0.0-0.1) 12/29/21 04:47 Metamyelocytes # 0.0 K/mm3 12/29/21 04:47 Myelocytes # 0.0 K/mm3 12/29/21 04:47 Promyelocytes # 0.0 K/mm3 12/29/21 04:47 Blast Cells # 0.0 K/mm3 12/29/21 04:47 WBC Morphology Not Reportable 12/29/21 04:47 Hypersegmented Neuts Not Reportable 12/29/21 04:47 Hyposegmented Neuts Not Reportable 12/29/21 04:47 Hypogranular Neuts Not Reportable 12/29/21 04:47 Smudge Cells Not Reportable 12/29/21 04:47 Toxic Granulation Not Reportable 12/29/21 04:47 Toxic Vacuolation Not Reportable 12/29/21 04:47 Dohle Bodies Not Reportable 12/29/21 04:47 Pelger-Huet Anomaly Not Reportable 12/29/21 04:47 Kennedi Rods Not Reportable 12/29/21 04:47 Platelet Estimate Consistent w auto 12/29/21 04:47 Clumped Platelets Not Reportable 12/29/21 04:47 Plt Clumps, EDTA Not Reportable 12/29/21 04:47 Large Platelets Few 12/29/21 04:47 Giant Platelets Not Reportable 12/29/21 04:47 Platelet Satelliting Not Reportable 12/29/21 04:47 Plt Morphology Comment Not Reportable 12/29/21 04:47 RBC Morphology Normal 12/29/21 04:47 Dimorphic RBCs Not Reportable 12/29/21 04:47 Polychromasia Not Reportable 12/29/21 04:47 Hypochromasia Not Reportable 12/29/21 04:47 Poikilocytosis Not Reportable 12/29/21 04:47 Anisocytosis Not Reportable 12/29/21 04:47 Microcytosis Not Reportable 12/29/21 04:47 Macrocytosis Not Reportable 12/29/21 04:47 Spherocytes Not Reportable 12/29/21 04:47 Pappenheimer Bodies Not Reportable 12/29/21 04:47 Sickle Cells Not Reportable 12/29/21 04:47 Target Cells Not Reportable 12/29/21 04:47 Tear Drop Cells Not Reportable 12/29/21 04:47 Ovalocytes Not Reportable 12/29/21 04:47 Helmet Cells Not Reportable 12/29/21 04:47 Freeman-Mcgovern Bodies Not Reportable 12/29/21 04:47 Courtland Rings Not Reportable 12/29/21 04:47 Epifanio Cells Not Reportable 12/29/21 04:47 Bite Cells Not Reportable 12/29/21 04:47 Crenated Cell Not Reportable 12/29/21 04:47 Elliptocytes Not Reportable 12/29/21 04:47 Acanthocytes (Spur) Not Reportable 12/29/21 04:47 Rouleaux Not Reportable 12/29/21 04:47 Hemoglobin C Crystals Not Reportable 12/29/21 04:47 Schistocytes Not Reportable 12/29/21 04:47 Malaria parasites Not Reportable 12/29/21 04:47 [place] Bodies Not Reportable 12/29/21 04:47 Hem Pathologist Commnt No 12/29/21 04:47 Sodium 144 mmol/L (137-145) 12/30/21 04:42 Potassium 3.2 mmol/L (3.6-5.0) L 12/30/21 04:42 Chloride 102.7 mmol/L (98-107) 12/30/21 04:42 Carbon Dioxide 28 mmol/L (22-30) 12/30/21 04:42 Anion Gap 17 mmol/L 12/30/21 04:42 BUN 10 mg/dL (7-17) 12/30/21 04:42 Creatinine 1.0 mg/dL (0.6-1.2) 12/30/21 04:42 Estimated GFR > 60 ml/min 12/30/21 04:42 BUN/Creatinine Ratio 10 % 12/30/21 04:42 Glucose 172 mg/dL (65-100) H 12/30/21 04:42 POC Glucose 194 mg/dL (70-105) H 12/30/21 08:14 Lactic Acid 1.60 mmol/L (0.7-2.0) 12/29/21 13:08 Calcium 8.3 mg/dL (8.4-10.2) L 12/30/21 04:42 Total Bilirubin 0.60 mg/dL (0.1-1.2) 12/29/21 04:47 AST 38 units/L (5-40) 12/29/21 04:47 ALT 31 units/L (7-56) 12/29/21 04:47 Alkaline Phosphatase 237 units/L (35-129) H 12/29/21 04:47 Total Protein 6.0 g/dL (6.3-8.2) L 12/29/21 04:47 Albumin 2.3 g/dL (3.9-5) L 12/29/21 04:47 Albumin/Globulin Ratio 0.6 % 12/29/21 04:47 Urine Color Yellow (Yellow) 12/28/21 19:00 Urine Turbidity Clear (Clear) 12/28/21 19:00 Urine pH 6.0 (5.0-7.0) 12/28/21 19:00 Ur Specific [place] 1.043 (1.003-1.030) H 12/28/21 19:00 Urine Protein 30 mg/dl mg/dL (Negative) 12/28/21 19:00 Urine Glucose (UA) >=500 mg/dL (Negative) 12/28/21 19:00 Urine Ketones Neg mg/dL (Negative) 12/28/21 19:00 Urine Blood Neg (Negative) 12/28/21 19:00 Urine Nitrite Neg (Negative) 12/28/21 19:00 Urine Bilirubin Neg (Negative) 12/28/21 19:00 Urine Urobilinogen 4.0 mg/dL (<2.0) 12/28/21 19:00 Ur Leukocyte Esterase Neg (Negative) 12/28/21 19:00 Urine WBC (Auto) 6.0 /HPF (0.0-6.0) 12/28/21 19:00 Urine RBC (Auto) 14.0 /HPF (0.0-6.0) 12/28/21 19:00 U Epithel Cells (Auto) 2.0 /HPF (0-13.0) 12/28/21 19:00 Urine Bacteria (Auto) 1+ /HPF (Negative) 12/28/21 19:00 Urine Mucus Few /HPF 12/28/21 19:00 Urine Yeast (Budding) 1+ /HPF 12/28/21 19:00 Salicylates < 0.3 mg/dL (2.8-20.0) L 12/28/21 12:49 Urine Opiates Screen Presumptive negative 12/28/21 19:00 Urine Methadone Screen Presumptive negative 12/28/21 19:00 Acetaminophen 5.0 ug/mL (10.0-30.0) L 12/28/21 12:49 Ur Barbiturates Screen Presumptive negative 12/28/21 19:00 Ur Phencyclidine Scrn Presumptive negative 12/28/21 19:00 Ur Amphetamines Screen Presumptive negative 12/28/21 19:00 U Benzodiazepines Scrn Presumptive negative 12/28/21 19:00 Urine Cocaine Screen Presumptive negative 12/28/21 19:00 U Marijuana (THC) Screen Presumptive positive 12/28/21 19:00 Drugs of Abuse Note Disclamer 12/28/21 19:00 Plasma/Serum Alcohol < 0.01 % (0-0.07) 12/28/21 12:49 Blood Type A POSITIVE 12/28/21 15:20 Antibody Screen Negative 12/28/21 15:20 Microbiology: Microbiology 12/28/21 14:56 Peripheral/Venous Blood Culture - Preliminary NO GROWTH AFTER 24 HOURS 12/28/21 14:56 Peripheral/Venous Blood Culture - Preliminary NO GROWTH AFTER 24 HOURS Enriquez/IV: Voiding Method Indwelling Catheter Active Medications - Current Medications Current Medications: Generic Name Dose Route Start Last Admin Trade Name Freq PRN Reason Stop Dose Admin Acetaminophen 650 mg 12/28/21 20:33 Acetaminophen 325 Mg Tab PO Q8H PRN Pain, Mild (1-3) Albuterol 2.5 mg 12/28/21 20:31 Albuterol 2.5 Mg/3 Ml Nebu IH Q4HRT PRN Shortness Of Breath Amlodipine Besylate 5 mg 12/30/21 10:00 Amlodipine 5 Mg Tab PO QDAY BAUTISTA Aspirin 325 mg 12/30/21 10:00 Aspirin 325 Mg Tab PO QDAY BAUTISTA Atorvastatin Calcium 80 mg 12/29/21 22:00 12/29/21 22:18 Atorvastatin 40 Mg Tab PO 80 mg QHS BAUTISTA Administration Clopidogrel Bisulfate 75 mg 12/30/21 10:00 Clopidogrel 75 Mg Tab PO QDAY BAUTISTA Dextrose 0 ml 12/28/21 20:32 Dextrose 10% *Hypoglycemia IV DIRECT PRN Hypoglycemia Protocol Dextrose 50 ml 12/29/21 11:13 Dextrose 50% In Water (25gm) 50 Ml Syringe IV Q30MIN PRN Hypoglycemia Protocol Duloxetine HCl 60 mg 12/30/21 10:00 Duloxetine 30 Mg Cap PO QDAY BAUTISTA Famotidine 10 mg 12/29/21 22:00 12/29/21 22:19 Famotidine 10 Mg Tab PO 10 mg BID BAUTISTA Administration Gabapentin 300 mg 12/29/21 22:00 12/29/21 22:16 Gabapentin 300 Mg Cap PO 300 mg BID BAUTISTA Administration Hydromorphone HCl 0.25 mg 12/28/21 20:31 12/30/21 04:40 Hydromorphone 1 Mg/1 Ml Inj IV 0.25 mg Q6H PRN Administration Pain, Moderate (4-6) Clindamycin HCl 900 mg in 50 mls @ 100 mls/hr 12/29/21 18:00 12/30/21 04:20 Cleocin 900 Mg/50 Ml IV Infused Q8H BAUTISTA Infusion Protocol Meropenem 500 mg in 50 mls @ 50 mls/hr 12/29/21 22:00 12/30/21 04:46 Merrem/Ns 500 Mg/50 Ml IV Infused Q6H BAUTISTA Infusion Insulin Glargine 25 units 12/30/21 22:00 Insulin Glargine 100 Units/Ml SUB-Q QHS [facility] Insulin Human Lispro 0 unit 12/29/21 11:30 12/30/21 07:30 Insulin Lispro 100 Unit/Ml SUB-Q 3 unit ACHS BAUTISTA Administration Protocol Lisinopril 10 mg 12/30/21 10:00 Lisinopril 10 Mg Tab PO QDAY BAUTISTA Nicotine 14 mg 12/29/21 17:00 12/29/21 18:43 Nicotine 14 Mg/24 Hr Patch TD 14 mg QDAY BAUTISTA Administration Ondansetron HCl 4 mg 12/28/21 20:31 Ondansetron 4 Mg/2 Ml Inj IV Q8H PRN Nausea And Vomiting Potassium Chloride 40 meq 12/30/21 09:00 Potassium Chloride Er 20 Meq Tab PO 12/30/21 13:01 Q4H BAUTISTA Sodium Chloride 10 ml 12/28/21 22:00 12/29/21 22:44 Sodium Chloride 0.9% 10 Ml Flush Syringe IV 10 ml BID BAUTISTA Administration Sodium Chloride 10 ml 12/28/21 20:31 Sodium Chloride 0.9% 10 Ml Flush Syringe IV PRN PRN LINE FLUSH Tramadol HCl 50 mg 12/28/21 14:22 12/28/21 16:51 Tramadol 50 Mg Tab PO 50 mg Q6H PRN Administration Pain , Severe (7-10)
[2021-12-30] MEDS: POTASSIUM CHLORIDE ER 20 MEQ TAB PO SCH ×2 (09:00→13:00)
--- NOTE | 2021-12-30 09:08 | Progress Note ---
Assessment and Plan Cellulitis- right lower extremity-Necrotizing fascitis s/p debridement Diabetes mellitus- suboptimal control Morbid obesity BMI 37 Tobacco use disorder/Nicotine dependence- ongoing Lactic acidosis-improving Leukocytosis- improving Sever anal condylomata -Continue antibiotics, dressing changes per surgey Plan for OR in the morning for possible debridement and wound vac -Can discontinue the Enriquez catheter -Glycemic control, accucheck keep blood glucose 140-180 mg/dL -VTE prophylaxis -Lifestyle modification, diabetic education Continue with Clindamycin to 900mg q8 add Zosyn 4.5g De-escalate once culture data is available (GPC and gram variable rods in prelim Micro) -Increase activity as tolerated- PT/OT to evaluate and treat Subjective Date of service: 12/30/21 Interval history: Follow up for: Cellulitis- right lower extremity-Necrotizing fascitis s/p debridement; Diabetes mellitus- suboptimal control; Morbid obesity BMI 37 Tobacco use disorder/Nicotine dependence; Lactic acidosis Seen and examined. Vitals, albs, medications, chart reviewed. Transferred out of the ICU yesterday. State the pain is much better, denies any fevers or chills. Wants to know when she can eat Objective Vital Signs - 12hr 12/29/21 12/30/21 12/30/21 22:00 00:22 00:31 Temperature Pulse Rate 85 61 Respiratory 13 Rate Respiratory 22 Rate [Right Thigh] Blood Pressure 67/47 O2 Sat by Pulse 96 94 90 Oximetry 12/30/21 04:26 Temperature 98.0 F Pulse Rate 95 H Respiratory 18 Rate Respiratory Rate [Right Thigh] Blood Pressure 158/83 O2 Sat by Pulse 91 Oximetry Constitutional: no acute distress, alert Eyes: non-icteric ENT: oropharynx moist Neck: supple, no lymphadenopathy Effort: normal Ascultation: Bilateral: clear, diminished breath sounds Cardiovascular: regular rate and rhythm, other (S1S2) Gastrointestinal: normoactive bowel sounds, soft, non-tender, non-distended, other (Anal condylomata- extensive, Enriquez catheter in palce) Integumentary: other (right thigh dressing- clean and dry) Extremities: no cyanosis, other (right thigh dressing- clean and dry) Neurologic: normal mental status, non-focal exam, pupils equal and round, motor strength normal and Psychiatric: mood appropriate, affect normal CBC and BMP: 12/30/21 04:42 12/30/21 04:42 Abnormal lab findings: Abnormal Labs 12/28/21 12/28/21 12/28/21 12:49 12:49 12:49 WBC 34.9 H Hgb 14.7 H Hct 47.7 H MCH MCHC Seg Neuts % (Manual) 90.0 H Lymphocytes % (Manual) 0 L Seg Neutrophils # Man 31.4 H Lymphocytes # (Manual) 0.0 L Monocytes # (Manual) 1.4 H Potassium Carbon Dioxide Glucose 362 H POC Glucose Lactic Acid Calcium Alkaline Phosphatase 269 H Total Protein Albumin 3.1 L Ur Specific [place] Salicylates < 0.3 L Acetaminophen 12/28/21 12/28/21 12/28/21 12:49 19:00 19:04 WBC Hgb Hct MCH MCHC Seg Neuts % (Manual) Lymphocytes % (Manual) Seg Neutrophils # Man Lymphocytes # (Manual) Monocytes # (Manual) Potassium Carbon Dioxide Glucose POC Glucose Lactic Acid 3.30 H* Calcium Alkaline Phosphatase Total Protein Albumin Ur Specific [place] 1.043 H Salicylates Acetaminophen 5.0 L 12/28/21 12/28/21 12/28/21 20:41 20:56 20:56 WBC Hgb Hct MCH MCHC Seg Neuts % (Manual) Lymphocytes % (Manual) Seg Neutrophils # Man Lymphocytes # (Manual) Monocytes # (Manual) Potassium Carbon Dioxide 20 L Glucose 419 H POC Glucose 399 H Lactic Acid 2.80 H* Calcium 8.1 L Alkaline Phosphatase Total Protein Albumin Ur Specific [place] Salicylates Acetaminophen 12/28/21 12/29/21 12/29/21 22:00 00:16 04:47 WBC 30.7 H Hgb Hct MCH 33 H MCHC 35 H Seg Neuts % (Manual) 94.0 H Lymphocytes % (Manual) 2.0 L Seg Neutrophils # Man 28.9 H Lymphocytes # (Manual) 0.6 L Monocytes # (Manual) Potassium Carbon Dioxide Glucose POC Glucose 358 H 257 H Lactic Acid Calcium Alkaline Phosphatase Total Protein Albumin Ur Specific [place] Salicylates Acetaminophen 12/29/21 12/29/21 12/29/21 04:47 11:25 17:14 WBC Hgb Hct MCH MCHC Seg Neuts % (Manual) Lymphocytes % (Manual) Seg Neutrophils # Man Lymphocytes # (Manual) Monocytes # (Manual) Potassium Carbon Dioxide Glucose 280 H POC Glucose 321 H 136 H Lactic Acid Calcium 8.0 L Alkaline Phosphatase 237 H Total Protein 6.0 L Albumin 2.3 L Ur Specific [place] Salicylates Acetaminophen 12/29/21 12/30/21 12/30/21 20:59 04:42 04:42 WBC 19.9 H Hgb Hct MCH MCHC Seg Neuts % (Manual) Lymphocytes % (Manual) Seg Neutrophils # Man Lymphocytes # (Manual) Monocytes # (Manual) Potassium 3.2 L Carbon Dioxide Glucose 172 H POC Glucose 150 H Lactic Acid Calcium 8.3 L Alkaline Phosphatase Total Protein Albumin Ur Specific [place] Salicylates Acetaminophen 12/30/21 08:14 WBC Hgb Hct MCH MCHC Seg Neuts % (Manual) Lymphocytes % (Manual) Seg Neutrophils # Man Lymphocytes # (Manual) Monocytes # (Manual) Potassium Carbon Dioxide Glucose POC Glucose 194 H Lactic Acid Calcium Alkaline Phosphatase Total Protein Albumin Ur Specific [place] Salicylates Acetaminophen Allied health notes reviewed: nursing
[2021-12-30] MEDS: NICOTINE 14 MG/24 HR PATCH TD SCH (10:12)
[2021-12-30] MEDS: ASPIRIN 325 MG TAB PO SCH (10:28)
[2021-12-30] MEDS: FAMOTIDINE 10 MG TAB PO SCH ×2 (10:28→22:36)
[2021-12-30] MEDS: DULoxetine 30 MG CAP PO SCH (10:28)
[2021-12-30] MEDS: amLODIPine 5 MG TAB PO SCH (10:29)
[2021-12-30] MEDS: LISINOPRIL 10 MG TAB PO SCH (10:29)
[2021-12-30] MEDS: CLOPIDOGREL 75 MG TAB PO SCH (10:29)
[2021-12-30] MEDS: GABAPENTIN 300 MG CAP PO SCH ×2 (10:30→22:36)
--- NOTE | 2021-12-30 11:11 | Progress Note ---
Assessment and Plan 66-year-old female postop day #1 status post wide excisional debridement of right proximal leg secondary to necrotizing fasciitis. Patient is afebrile and stable with improvement normalization of leukocytosis. Continue tight glucose control and antibiotics. We will take to the OR either tomorrow or Friday for touchup debridement and p ossible wound VAC placement. Subjective Date of service: 12/30/21 Narrative: Patient says that her leg pain has improved significantly. No acute events overnight except patient was transferred to the floor. Objective Vital Signs - 12hr 12/30/21 12/30/21 12/30/21 00:22 00:31 04:26 Temperature 98.0 F Pulse Rate 61 95 H Respiratory 13 18 Rate Blood Pressure 67/47 158/83 Blood Pressure [Left] O2 Sat by Pulse 94 90 91 Oximetry 12/30/21 09:35 Temperature 99.1 F Pulse Rate 98 H Respiratory 16 Rate Blood Pressure Blood Pressure 130/74 [Left] O2 Sat by Pulse 94 Oximetry - General physical appearance no distress, no pain, chronically ill, obese - Eyes PERRL - ENT no hearing loss - Respiratory normal expansion, normal respiratory effort - Abdomen soft, not tender, other (Colostomy with air and stool in bag) - Integumentary other (Dressing removed. Clean base with granulation tissue. No purulent drainage. Small area of fibrinous exudate in the superior medial aspect. No odor.) - Labs 12/30/21 04:42 12/30/21 04:42 Diabetes panel 12/30/21 Range/Units 04:42 Sodium 144 (137-145) mmol/L Potassium 3.2 L (3.6-5.0) mmol/L Chloride 102.7 (98-107) mmol/L Carbon Dioxide 28 (22-30) mmol/L BUN 10 (7-17) mg/dL Creatinine 1.0 (0.6-1.2) mg/dL Glucose 172 H (65-100) mg/dL Calcium 8.3 L (8.4-10.2) mg/dL Calcium panel 12/30/21 Range/Units 04:42 Calcium 8.3 L (8.4-10.2) mg/dL Pituitary panel 12/30/21 Range/Units 04:42 Sodium 144 (137-145) mmol/L Potassium 3.2 L (3.6-5.0) mmol/L Chloride 102.7 (98-107) mmol/L Carbon Dioxide 28 (22-30) mmol/L BUN 10 (7-17) mg/dL Creatinine 1.0 (0.6-1.2) mg/dL Glucose 172 H (65-100) mg/dL Calcium 8.3 L (8.4-10.2) mg/dL Adrenal panel 12/30/21 Range/Units 04:42 Sodium 144 (137-145) mmol/L Potassium 3.2 L (3.6-5.0) mmol/L Chloride 102.7 (98-107) mmol/L Carbon Dioxide 28 (22-30) mmol/L BUN 10 (7-17) mg/dL Creatinine 1.0 (0.6-1.2) mg/dL Glucose 172 H (65-100) mg/dL Calcium 8.3 L (8.4-10.2) mg/dL
[2021-12-30] MEDS: traMADol 50 MG TAB PO PRN ×2 (12:10→17:32)
[2021-12-30] MEDS ORDERED: ALUM-MAG HYDROXIDE-SIMETHICONE 200-200-20MG/5ML ORAL LIQD 30 ML PO PRN (17:30)
[2021-12-30] MEDS: INSULIN GLARGINE 100 UNITS/ML SUB-Q SCH (22:37)
[2021-12-31] MEDS: MEROPENEM/NS 500 MG/50 ML 500 MG/50 ML BAG IV SCH ×4 (03:40→22:02)
[2021-12-31] MEDS: INSULIN LISPRO 100 UNIT/ML SUB-Q SCH ×4 (07:30→22:01)
--- NOTE | 2021-12-31 08:29 | Progress Note ---
Assessment and Plan Assessment and plan: 66-year-old female with known past medical history of CVA on DAPT, HTN, DM, Diastolic CHF, GERD, Nicotine Dependence, OA, and Debility admitted for sepsis 2/2 necrotizing fasciitis of the right leg s/p wide excisional debridement by General Surgery. Plan for additional debridement tomorrow. #Sepsis #Leukocytosis-improving #Cellulitis of Right Lower Extremity #Necrotizing Fasciitis of the Right Leg #Lactic Acidosis- resolved - 12/28 s/p wide excisional debridement - Leukocytosis downtrending, remains afebrile - Blood culture NG x 48hrs - Continue clindamycin and merrem for now; ID consulted, assistance appreciated - General Surgery following, assistance appreciated; plan for additional debridement today #Hyperglycemia #H/o of Diabetes - Continue high dose SSI and lantus 25U qhs - tight glycemic control to promote healing; goal glucose 140-180 #Hypertension - BP stable - Home antihypertensive resumed - Continue blood pressure monitor per protocol #Hypokalemia - will replete and monitor #Nicotine Dependence - Nicotine patch added - Smoking cessation counseling, supportive care, behavior change counseling, +15 minutes. #Debility - PT/OT consulted #Discharge Planning - Per patient she can not go back to her daughter's house, she would like assistance with placement - Case management consulted History Interval history: No acute events overnight. Patient reports pain in leg controlled with medication given. She has no current complaints at this time. Hospitalist Physical - Physical exam Narrative exam: GENERAL: Well-developed well-nourished. Sitting on the side of the bed in no acute distress. HEENT: Normocephalic. Atraumatic. NECK: Supple. CHEST/LUNGS: CTAB on room air HEART/CARDIOVASCULAR: RRR. No murmur, rubs or gallops appreciated. ABDOMEN: +BS. NT/ND. SKIN: No rashes noted. NEURO: No focal motor deficit. Follows all commands. MUSCULOSKELETAL: No joint effusion EXTREMITIES: R thigh bandaged. No swelling or edema appreciated. PSYCH: Cooperative. - Constitutional Vitals: Temp Pulse Resp BP Pulse Ox 98.2 F 91 H 18 132/78 93 12/31/21 03:30 12/31/21 03:30 12/31/21 03:30 12/31/21 03:30 12/31/21 03:30 General appearance: Present: no acute distress, obese Results - Labs CBC & Chem 7: 12/30/21 04:42 12/30/21 04:42 Labs: Laboratory Last Values WBC 19.9 K/mm3 (4.5-11.0) H 12/30/21 04:42 RBC 4.00 M/mm3 (3.65-5.03) 12/30/21 04:42 Hgb 12.3 gm/dl (10.1-14.3) 12/30/21 04:42 Hct 37.8 % (30.3-42.9) 12/30/21 04:42 MCV 95 fl (79-97) 12/30/21 04:42 MCH 31 pg (28-32) 12/30/21 04:42 MCHC 33 % (30-34) 12/30/21 04:42 RDW 14.3 % (13.2-15.2) 12/30/21 04:42 Plt Count 337 K/mm3 (140-440) 12/30/21 04:42 Add Manual Diff Complete 12/29/21 04:47 Total Counted 100 12/29/21 04:47 Seg Neutrophils % Rn Homecare 12/28/21 12:49 Seg Neuts % (Manual) 94.0 % (40.0-70.0) H 12/29/21 04:47 Band Neutrophils % 2.0 % 12/29/21 04:47 Lymphocytes % (Manual) 2.0 % (13.4-35.0) L 12/29/21 04:47 Reactive Lymphs % (Man) 0 % 12/29/21 04:47 Monocytes % (Manual) 2.0 % (0.0-7.3) 12/29/21 04:47 Eosinophils % (Manual) 0 % (0.0-4.3) 12/29/21 04:47 Basophils % (Manual) 0 % (0.0-1.8) 12/29/21 04:47 Metamyelocytes % 0 % 12/29/21 04:47 Myelocytes % 0 % 12/29/21 04:47 Promyelocytes % 0 % 12/29/21 04:47 Blast Cells % 0 % 12/29/21 04:47 Nucleated RBC % Not Reportable 12/29/21 04:47 Seg Neutrophils # Man 28.9 K/mm3 (1.8-7.7) H 12/29/21 04:47 Band Neutrophils # 0.6 K/mm3 12/29/21 04:47 Lymphocytes # (Manual) 0.6 K/mm3 (1.2-5.4) L 12/29/21 04:47 Abs React Lymphs (Man) 0.0 K/mm3 12/29/21 04:47 Monocytes # (Manual) 0.6 K/mm3 (0.0-0.8) 12/29/21 04:47 Eosinophils # (Manual) 0.0 K/mm3 (0.0-0.4) 12/29/21 04:47 Basophils # (Manual) 0.0 K/mm3 (0.0-0.1) 12/29/21 04:47 Metamyelocytes # 0.0 K/mm3 12/29/21 04:47 Myelocytes # 0.0 K/mm3 12/29/21 04:47 Promyelocytes # 0.0 K/mm3 12/29/21 04:47 Blast Cells # 0.0 K/mm3 12/29/21 04:47 WBC Morphology Not Reportable 12/29/21 04:47 Hypersegmented Neuts Not Reportable 12/29/21 04:47 Hyposegmented Neuts Not Reportable 12/29/21 04:47 Hypogranular Neuts Not Reportable 12/29/21 04:47 Smudge Cells Not Reportable 12/29/21 04:47 Toxic Granulation Not Reportable 12/29/21 04:47 Toxic Vacuolation Not Reportable 12/29/21 04:47 Dohle Bodies Not Reportable 12/29/21 04:47 Pelger-Huet Anomaly Not Reportable 12/29/21 04:47 Kennedi Rods Not Reportable 12/29/21 04:47 Platelet Estimate Consistent w auto 12/29/21 04:47 Clumped Platelets Not Reportable 12/29/21 04:47 Plt Clumps, EDTA Not Reportable 12/29/21 04:47 Large Platelets Few 12/29/21 04:47 Giant Platelets Not Reportable 12/29/21 04:47 Platelet Satelliting Not Reportable 12/29/21 04:47 Plt Morphology Comment Not Reportable 12/29/21 04:47 RBC Morphology Normal 12/29/21 04:47 Dimorphic RBCs Not Reportable 12/29/21 04:47 Polychromasia Not Reportable 12/29/21 04:47 Hypochromasia Not Reportable 12/29/21 04:47 Poikilocytosis Not Reportable 12/29/21 04:47 Anisocytosis Not Reportable 12/29/21 04:47 Microcytosis Not Reportable 12/29/21 04:47 Macrocytosis Not Reportable 12/29/21 04:47 Spherocytes Not Reportable 12/29/21 04:47 Pappenheimer Bodies Not Reportable 12/29/21 04:47 Sickle Cells Not Reportable 12/29/21 04:47 Target Cells Not Reportable 12/29/21 04:47 Tear Drop Cells Not Reportable 12/29/21 04:47 Ovalocytes Not Reportable 12/29/21 04:47 Helmet Cells Not Reportable 12/29/21 04:47 [place] Bodies Not Reportable 12/29/21 04:47 [place] Rings Not Reportable 12/29/21 04:47 Epifanio Cells Not Reportable 12/29/21 04:47 Bite Cells Not Reportable 12/29/21 04:47 Crenated Cell Not Reportable 12/29/21 04:47 Elliptocytes Not Reportable 12/29/21 04:47 Acanthocytes (Spur) Not Reportable 12/29/21 04:47 Rouleaux Not Reportable 12/29/21 04:47 Hemoglobin C Crystals Not Reportable 12/29/21 04:47 Schistocytes Not Reportable 12/29/21 04:47 Malaria parasites Not Reportable 12/29/21 04:47 [place] Bodies Not Reportable 12/29/21 04:47 Hem Pathologist Commnt No 12/29/21 04:47 Sodium 144 mmol/L (137-145) 12/30/21 04:42 Potassium 3.2 mmol/L (3.6-5.0) L 12/30/21 04:42 Chloride 102.7 mmol/L (98-107) 12/30/21 04:42 Carbon Dioxide 28 mmol/L (22-30) 12/30/21 04:42 Anion Gap 17 mmol/L 12/30/21 04:42 BUN 10 mg/dL (7-17) 12/30/21 04:42 Creatinine 1.0 mg/dL (0.6-1.2) 12/30/21 04:42 Estimated GFR > 60 ml/min 12/30/21 04:42 BUN/Creatinine Ratio 10 % 12/30/21 04:42 Glucose 172 mg/dL (65-100) H 12/30/21 04:42 POC Glucose 164 mg/dL (70-105) H 12/31/21 07:31 Lactic Acid 1.60 mmol/L (0.7-2.0) 12/29/21 13:08 Calcium 8.3 mg/dL (8.4-10.2) L 12/30/21 04:42 Total Bilirubin 0.60 mg/dL (0.1-1.2) 12/29/21 04:47 AST 38 units/L (5-40) 12/29/21 04:47 ALT 31 units/L (7-56) 12/29/21 04:47 Alkaline Phosphatase 237 units/L (35-129) H 12/29/21 04:47 Total Protein 6.0 g/dL (6.3-8.2) L 12/29/21 04:47 Albumin 2.3 g/dL (3.9-5) L 12/29/21 04:47 Albumin/Globulin Ratio 0.6 % 12/29/21 04:47 Urine Color Yellow (Yellow) 12/28/21 19:00 Urine Turbidity Clear (Clear) 12/28/21 19:00 Urine pH 6.0 (5.0-7.0) 12/28/21 19:00 Ur Specific [place] 1.043 (1.003-1.030) H 12/28/21 19:00 Urine Protein 30 mg/dl mg/dL (Negative) 12/28/21 19:00 Urine Glucose (UA) >=500 mg/dL (Negative) 12/28/21 19:00 Urine Ketones Neg mg/dL (Negative) 12/28/21 19:00 Urine Blood Neg (Negative) 12/28/21 19:00 Urine Nitrite Neg (Negative) 12/28/21 19:00 Urine Bilirubin Neg (Negative) 12/28/21 19:00 Urine Urobilinogen 4.0 mg/dL (<2.0) 12/28/21 19:00 Ur Leukocyte Esterase Neg (Negative) 12/28/21 19:00 Urine WBC (Auto) 6.0 /HPF (0.0-6.0) 12/28/21 19:00 Urine RBC (Auto) 14.0 /HPF (0.0-6.0) 12/28/21 19:00 U Epithel Cells (Auto) 2.0 /HPF (0-13.0) 12/28/21 19:00 Urine Bacteria (Auto) 1+ /HPF (Negative) 12/28/21 19:00 Urine Mucus Few /HPF 12/28/21 19:00 Urine Yeast (Budding) 1+ /HPF 12/28/21 19:00 Nasal Screen MRSA (PCR) Negative (Negative) 12/29/21 14:30 Salicylates < 0.3 mg/dL (2.8-20.0) L 12/28/21 12:49 Urine Opiates Screen Presumptive negative 12/28/21 19:00 Urine Methadone Screen Presumptive negative 12/28/21 19:00 Acetaminophen 5.0 ug/mL (10.0-30.0) L 12/28/21 12:49 Ur Barbiturates Screen Presumptive negative 12/28/21 19:00 Ur Phencyclidine Scrn Presumptive negative 12/28/21 19:00 Ur Amphetamines Screen Presumptive negative 12/28/21 19:00 U Benzodiazepines Scrn Presumptive negative 12/28/21 19:00 Urine Cocaine Screen Presumptive negative 12/28/21 19:00 U Marijuana (THC) Screen Presumptive positive 12/28/21 19:00 Drugs of Abuse Note Disclamer 12/28/21 19:00 Plasma/Serum Alcohol < 0.01 % (0-0.07) 12/28/21 12:49 Blood Type A POSITIVE 12/28/21 15:20 Antibody Screen Negative 12/28/21 15:20 Microbiology: Microbiology 12/28/21 14:56 Peripheral/Venous Blood Culture - Preliminary NO GROWTH AFTER 48 HOURS 12/28/21 14:56 Peripheral/Venous Blood Culture - Preliminary NO GROWTH AFTER 48 HOURS 12/28/21 Unknown Leg - Right Surgical Culture - Preliminary Enriquez/IV: Voiding Method External Female Catheter Active Medications - Current Medications Current Medications: Generic Name Dose Route Start Last Admin Trade Name Freq PRN Reason Stop Dose Admin Acetaminophen 650 mg 12/28/21 20:33 Acetaminophen 325 Mg Tab PO Q8H PRN Pain, Mild (1-3) Al Hydrox/Mg Hydrox/Simethicone 30 ml 12/30/21 17:30 Alum-Mag Hydroxide-Simethicone 182-344-00uw/5ml Oral Liqd 30 Ml PO Q4H PRN Indigestion Albuterol 2.5 mg 12/28/21 20:31 Albuterol 2.5 Mg/3 Ml Nebu IH Q4HRT PRN Shortness Of Breath Amlodipine Besylate 5 mg 12/30/21 10:00 12/30/21 10:29 Amlodipine 5 Mg Tab PO 5 mg QDAY BAUTISTA Administration Aspirin 325 mg 12/30/21 10:00 12/30/21 10:28 Aspirin 325 Mg Tab PO 325 mg QDAY BAUTISTA Administration Atorvastatin Calcium 80 mg 12/29/21 22:00 12/30/21 22:36 Atorvastatin 40 Mg Tab PO 80 mg QHS BAUTISTA Administration Clopidogrel Bisulfate 75 mg 12/30/21 10:00 12/30/21 10:29 Clopidogrel 75 Mg Tab PO 75 mg QDAY BAUTISTA Administration Dextrose 0 ml 12/28/21 20:32 Dextrose 10% *Hypoglycemia IV DIRECT PRN Hypoglycemia Protocol Dextrose 50 ml 12/29/21 11:13 Dextrose 50% In Water (25gm) 50 Ml Syringe IV Q30MIN PRN Hypoglycemia Protocol Duloxetine HCl 60 mg 12/30/21 10:00 12/30/21 10:28 Duloxetine 30 Mg Cap PO 60 mg QDAY BAUTISTA Administration Famotidine 10 mg 12/29/21 22:00 12/30/21 22:36 Famotidine 10 Mg Tab PO 10 mg BID BAUTISTA Administration Gabapentin 300 mg 12/29/21 22:00 12/30/21 22:36 Gabapentin 300 Mg Cap PO 300 mg BID BAUTISTA Administration Hydromorphone HCl 0.25 mg 12/28/21 20:31 12/30/21 09:45 Hydromorphone 1 Mg/1 Ml Inj IV 0.25 mg Q6H PRN Administration Pain, Moderate (4-6) Clindamycin HCl 900 mg in 50 mls @ 100 mls/hr 12/29/21 18:00 12/31/21 06:43 Cleocin 900 Mg/50 Ml IV Infused Q8H BAUTISTA Infusion Protocol Meropenem 500 mg in 50 mls @ 50 mls/hr 12/29/21 22:00 12/31/21 06:43 Merrem/Ns 500 Mg/50 Ml IV Infused Q6H [facility] Infusion Insulin Glargine 25 units 12/30/21 22:00 12/30/21 22:37 Insulin Glargine 100 Units/Ml SUB-Q 25 units QHS [facility] Administration Insulin Human Lispro 0 unit 12/29/21 11:30 12/31/21 07:30 Insulin Lispro 100 Unit/Ml SUB-Q Not Given ACHS [facility] Protocol Lisinopril 10 mg 12/30/21 10:00 12/30/21 10:29 Lisinopril 10 Mg Tab PO 10 mg QDAY BAUTISTA Administration Nicotine 14 mg 12/29/21 17:00 12/30/21 10:12 Nicotine 14 Mg/24 Hr Patch TD 14 mg QDAY [facility] Administration Ondansetron HCl 4 mg 12/28/21 20:31 Ondansetron 4 Mg/2 Ml Inj IV Q8H PRN Nausea And Vomiting Sodium Chloride 10 ml 12/28/21 22:00 12/30/21 22:39 Sodium Chloride 0.9% 10 Ml Flush Syringe IV 10 ml BID BAUTISTA Administration Sodium Chloride 10 ml 12/28/21 20:31 Sodium Chloride 0.9% 10 Ml Flush Syringe IV PRN PRN LINE FLUSH Tramadol HCl 50 mg 12/28/21 14:22 12/30/21 17:32 Tramadol 50 Mg Tab PO 50 mg Q6H PRN Administration Pain , Severe (7-10)
--- NOTE | 2021-12-31 08:36 | Progress Note ---
Assessment and Plan 66 YO Female with CVA on DAPT, HTN, DM, Diastolic CHF, GERD, Nicotine Dependence, OA, Debility presents to ED for evaluation. Patient states that she has experienced swelling, redness, and pain to her right thigh area over the past 3 days with persistent and worsening symptoms over the same timeframe. Patient states the pain is 10/10, constant, worsened with movement, and relieved with nonmovement. Patient also reports feeling depressed due to her current living conditions. Patient reports feeling suicidal and considered drawing up insulin and taking a big dose in an attempt to take her own life. Patient states that she is unsatisfied with her current family response to her needs. EMS was notified by family members due to the aforementioned symptoms and upon arrival the patient was found to be in distress and subsequent transported to [facility] for further care and evaluation of the aforementioned symptoms. Patient was found to have fever with a temperature of 101 F. Patient was also found to have cellulitis to the right thigh and perineal area complicated by sepsis. Patient admitted to medical floor and initiated on sepsis protocol. Mental health team consulted in ED. patient denies chills, chest pain, palpitation, productive cough, skin rash, recent contact, known exposure to COVID-19. Patient Obese, sleepy. Patient suppose to be on 1 1/2 litres O2. Not using it as ordered. O2 saturation 97%. No acute respiratory distress. Patient has history of smoking 1 pack a day x 30 years. Counseled to stop smok ing. Patient has history of alcohol and drug abuse. 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 Allergic to pencillin. Patient afebrile. Has leukocytosis. Blood pressure 144/68 , Pulse 91 , Respirations 16. Recommend to get chest xray. Patient is on Meropenum, Vancomycin, Famotidine, Plavix, Albuterol inhaler. - Patient Problems (1) Cellulitis of right lower extremity Current Visit: Yes Status: Acute Plan to address problem: Patient is on Meropenum and vancomycin. (2) Diabetes Current Visit: Yes Status: Acute Plan to address problem: Management as per primary care. (3) Diastolic CHF Current Visit: Yes Status: Acute Qualifiers: Heart failure chronicity: chronic Qualified Code(s): I50.32 - Chronic diastolic (congestive) heart failure Plan to address problem: Management as per cardiology. (4) GERD (gastroesophageal reflux disease) Current Visit: Yes Status: Acute Qualifiers: Esophagitis presence: without esophagitis Qualified Code(s): K21.9 - Gastro-esophageal reflux disease without esophagitis Plan to address problem: On Famotidine. (5) Hypertension Current Visit: Yes Status: Acute Qualifiers: Hypertension type: primary hypertension Qualified Code(s): I10 - Essential (primary) hypertension Plan to address problem: Management as per primary care. (6) Sepsis Current Visit: Yes Status: Acute Plan to address problem: Patient is on Meropenum and vancomycin. (7) Nicotine dependence Current Visit: No Status: Acute Qualifiers: Nicotine product type: cigarettes Substance use status: in withdrawal Qualified Code(s): F17.213 - Nicotine dependence, cigarettes, with withdrawal Plan to address problem: Counseled to stop smoking. (8) Obesity (BMI 30-39.9) Current Visit: Yes Status: Acute Plan to address problem: Recommend to loose weight. Recommend sleep study as out patient. Subjective Date of service: 12/31/21 Interval history: 66 YO Female with CVA on DAPT, HTN, DM, Diastolic CHF, GERD, Nicotine Dependence, OA, Debility presents to ED for evaluation. Patient states that she has experienced swelling, redness, and pain to her right thigh area over the past 3 days with persistent and worsening symptoms over the same timeframe. Patient states the pain is 10/10, constant, worsened with movement, and relieved with nonmovement. Patient also reports feeling depressed due to her current living conditions. Patient reports feeling suicidal and considered drawing up insulin and taking a big dose in an attempt to take her own life. Patient state s that she is unsatisfied with her current family response to her needs. EMS was notified by family members due to the aforementioned symptoms and upon arrival the patient was found to be in distress and subsequent transported to [facility] for further care and evaluation of the aforementioned symptoms. Patient was found to have fever with a temperature of 101 F. Patient was also found to have cellulitis to the right thigh and perineal area complicated by sepsis. Patient admitted to medical floor and initiated on sepsis protocol. Mental health team consulted in ED. patient denies chills, chest pain, palpitation, productive cough, skin rash, recent contact, known exposure to COVID-19. Patient Obese, sleepy. Patient suppose to be on 1 1/2 litres O2. Not using it as ordered. O2 saturation 97%. No acute respiratory distress. Patient has history of smoking 1 pack a day x 30 years. Counseled to stop smoking. Patient has history of alcohol and drug abuse. 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 Allergic to pencillin. Patient afebrile. Has leukocytosis. Blood pressure 144/68 , Pulse 91 , Respirations 16. Recommend to get chest xray. Patient is on Meropenum, Vancomycin, Famotidine, Plavix, Albuterol inhaler. Objective Vital Signs - 12hr 12/30/21 12/31/21 22:00 03:30 Temperature 98.2 F Pulse Rate 91 H Respiratory 18 Rate Respiratory 22 Rate [Right Thigh] Blood Pressure 132/78 O2 Sat by Pulse 96 93 Oximetry Constitutional: no acute distress, asleep, other (Obese.) Eyes: non-icteric ENT: oropharynx moist Neck: supple, no lymphadenopathy Effort: mildly labored Ascultation: Bilateral: diminished breath sounds Cardiovascular: regular rate and rhythm Gastrointestinal: normoactive bowel sounds, soft, non-tender Integumentary: normal Extremities: edema, other (Cellulitis, right thigh.) Neurologic: non-focal exam, pupils equal and round Psychiatric: other (Sleepy. Unable to evaluate.) CBC and BMP: 12/30/21 04:42 12/30/21 04:42 Abnormal lab findings: Abnormal Labs 12/28/21 12/28/21 12/28/21 12:49 12:49 12:49 WBC 34.9 H Hgb 14.7 H Hct 47.7 H MCH MCHC Seg Neuts % (Manual) 90.0 H Lymphocytes % (Manual) 0 L Seg Neutrophils # Man 31.4 H Lymphocytes # (Manual) 0.0 L Monocytes # (Manual) 1.4 H Potassium Carbon Dioxide Glucose 362 H POC Glucose Lactic Acid Calcium Alkaline Phosphatase 269 H Total Protein Albumin 3.1 L Ur Specific [place] Salicylates < 0.3 L Acetaminophen 12/28/21 12/28/21 12/28/21 12:49 19:00 19:04 WBC Hgb Hct MCH MCHC Seg Neuts % (Manual) Lymphocytes % (Manual) Seg Neutrophils # Man Lymphocytes # (Manual) Monocytes # (Manual) Potassium Carbon Dioxide Glucose POC Glucose Lactic Acid 3.30 H* Calcium Alkaline Phosphatase Total Protein Albumin Ur Specific [place] 1.043 H Salicylates Acetaminophen 5.0 L 12/28/21 12/28/21 12/28/21 20:41 20:56 20:56 WBC Hgb Hct MCH MCHC Seg Neuts % (Manual) Lymphocytes % (Manual) Seg Neutrophils # Man Lymphocytes # (Manual) Monocytes # (Manual) Potassium Carbon Dioxide 20 L Glucose 419 H POC Glucose 399 H Lactic Acid 2.80 H* Calcium 8.1 L Alkaline Phosphatase Total Protein Albumin Ur Specific [place] Salicylates Acetaminophen 12/28/21 12/29/21 12/29/21 22:00 00:16 04:47 WBC 30.7 H Hgb Hct MCH 33 H MCHC 35 H Seg Neuts % (Manual) 94.0 H Lymphocytes % (Manual) 2.0 L Seg Neutrophils # Man 28.9 H Lymphocytes # (Manual) 0.6 L Monocytes # (Manual) Potassium Carbon Dioxide Glucose POC Glucose 358 H 257 H Lactic Acid Calcium Alkaline Phosphatase Total Protein Albumin Ur Specific [place] Salicylates Acetaminophen 12/29/21 12/29/21 12/29/21 04:47 11:25 17:14 WBC Hgb Hct MCH MCHC Seg Neuts % (Manual) Lymphocytes % (Manual) Seg Neutrophils # Man Lymphocytes # (Manual) Monocytes # (Manual) Potassium Carbon Dioxide Glucose 280 H POC Glucose 321 H 136 H Lactic Acid Calcium 8.0 L Alkaline Phosphatase 237 H Total Protein 6.0 L Albumin 2.3 L Ur Specific [place] Salicylates Acetaminophen 12/29/21 12/30/21 12/30/21 20:59 04:42 04:42 WBC 19.9 H Hgb Hct MCH MCHC Seg Neuts % (Manual) Lymphocytes % (Manual) Seg Neutrophils # Man Lymphocytes # (Manual) Monocytes # (Manual) Potassium 3.2 L Carbon Dioxide Glucose 172 H POC Glucose 150 H Lactic Acid Calcium 8.3 L Alkaline Phosphatase Total Protein Albumin Ur Specific [place] Salicylates Acetaminophen 12/30/21 12/30/21 12/30/21 08:14 11:23 16:25 WBC Hgb Hct MCH MCHC Seg Neuts % (Manual) Lymphocytes % (Manual) Seg Neutrophils # Man Lymphocytes # (Manual) Monocytes # (Manual) Potassium Carbon Dioxide Glucose POC Glucose 194 H 245 H 209 H Lactic Acid Calcium Alkaline Phosphatase Total Protein Albumin Ur Specific [place] Salicylates Acetaminophen 12/30/21 12/31/21 21:27 07:31 WBC Hgb Hct MCH MCHC Seg Neuts % (Manual) Lymphocytes % (Manual) Seg Neutrophils # Man Lymphocytes # (Manual) Monocytes # (Manual) Potassium Carbon Dioxide Glucose POC Glucose 169 H 164 H Lactic Acid Calcium Alkaline Phosphatase Total Protein Albumin Ur Specific [place] Salicylates Acetaminophen Prior PFT's, U/S of legs: report reviewed, image reviewed Additional Studies: DUPLEX DOPPLER LOWER EXTREMITY VEINS, RIGHT INDICATION / CLINICAL INFORMATION: Pain and swelling. TECHNIQUE: Duplex doppler imaging was performed through the veins of the right lower extremity using venous compression and other maneuvers. COMPARISON: None available. FINDINGS: RIGHT COMMON FEMORAL VEIN: Negative. RIGHT FEMORAL VEIN: Negative. RIGHT POPLITEAL VEIN: Negative. RIGHT CALF VEINS: Negative. ADDITIONAL FINDINGS: None. IMPRESSION: 1. No sonographic evidence for DVT in the right lower extremity.
[2021-12-31] MEDS: HYDROmorphone 1 MG/1 ML INJ IV PRN (09:47)
[2021-12-31] MEDS: GABAPENTIN 300 MG CAP PO SCH ×2 (10:00→22:03)
[2021-12-31] MEDS: FAMOTIDINE 10 MG TAB PO SCH ×2 (10:00→22:03)
[2021-12-31] MEDS ORDERED: propofoL 200 MG/20 ML VIAL IV ONE (13:21)
[2021-12-31] MEDS ORDERED: fentaNYL 100 MCG/2 ML INJ ONE (13:21)
[2021-12-31] MEDS ORDERED: MIDAZOLAM 2 MG/2 ML INJ ONE (13:21)
[2021-12-31] MEDS ORDERED: LIDOCAINE MPF (2%) 20 MG/1 ML VIAL 5 ML ONE (13:21)
[2021-12-31] MEDS ORDERED: SODIUM CHLORIDE 0.9% 1000 ML 1,000 ML ONE (13:34)
--- NOTE | 2021-12-31 13:40 | Anesthesia Day of Surgery ---
Anesthesia Day of Surgery - Day of Surgery Patient Examined: Yes Patient H&P Reviewed: Yes Patient is NPO: Yes
[2021-12-31] MEDS ORDERED: PHENYLEPHRINE/NS 1,000 MCG/10 ML SYRINGE (OR USE) IV ONE (13:59)
[2021-12-31] MEDS ORDERED: SODIUM CHLORIDE 0.9% 1000 ML IV SOLN IR ONE (14:17)
[2021-12-31] MEDS ORDERED: SODIUM HYPOCHLORITE, DAKIN'S FULL STRENGTH (0.5%) 473 ML TOPICAL SOLN ONE (14:22)
[2021-12-31] MEDS ORDERED: SODIUM HYPOCHLORITE, DAKIN'S 1/2 STRENGTH (0.25%) 473 ML TOPICAL SOLN IR ONE (14:27)
[2021-12-31] MEDS ORDERED: ONDANSETRON 4 MG/2 ML INJ ONE (14:47)
[2021-12-31] MEDS ORDERED: HYDROmorphone 1 MG/1 ML INJ ONE ×2 (14:55→15:14)
[2021-12-31] MEDS ORDERED: HYDROmorphone 1 MG/1 ML INJ IV PRN (15:10)
--- NOTE | 2021-12-31 15:22 | Operative Report ---
Operative Report Operative Report: Date: 12/31/2021 Surgeon: Chiara Romano MD Procedure: Debridement of right leg Preop diagnosis: Necrotizing fasciitis right leg status post initial wide excisional debridement Postop diagnosis: Same as preop Anesthesia: General Indication: 66-year-old female who came into the emergency room 3 days ago with necrotizing fasciitis of the right upper thigh. Patient had emergent wide excisional debridement. Patient is here today for follow-up evaluation and additional debridement. Dressing change on the floor showed no grossly necrotic tissue, but there was a small amount of visible fibrinous slough. Patient agreed for procedure. Details of procedure. Patient was brought to the OR suite and laid in supine position. Bilateral lower extremity SCDs were placed. General anesthesia was induced. Patient was placed in lithotomy position. Patient's right proximal leg was prepped and draped in sterile fashion. The wound bed was noted to be clean down to the muscle and some subcutaneous tissue. There was no purulent drainage or odor. There was some fibrinous slough in the medial superior aspect, and under the lateral flap. A Misonix ultrasonic device was used to gently debride the slough material from the underlying granulation tissue. Bleeding was controlled with a combination of electrocautery and suture ligation, and Surgicel powder. Once the wound bed was clean and dry, Dakin's moistened Kerlix was used to fill in the wound cavity. This was followed by ABD pad and Jarret wrap. Patient was awoken taken to recovery in stable condition. EBL: Less than 10 mL Complications: None immediate Specimens: None
--- NOTE | 2021-12-31 16:25 | Consultation ---
History of Present Illness - Reason for Consult Consult date: 12/31/21 - History of Present Illness 66-year-old female past medical history CVA on antiplatelet therapy, hypertension, CHF, chronic debility presented to hospital complaining of right leg pain. This is associated with swelling, redness in her right thigh, and began 3 days prior to admission and was worsening since onset. She was found to have necrotizing fasciitis and was taken to the OR on 12/29/2021 and today for debridement Afebrile since admission with a white count 34.9 on admission. Imaging personally reviewed: Lower extremity CT: Soft tissue gas of subcutaneous tissues of the right medial thigh Review of Systems: Bold if positive, otherwise negative General: fevers, chills, rigors HEENT: visual disturbance, diplopia, eye pain Respiratory: cough, sputum, hemoptysis, shortness of breath Cardiovascular: chest pain, syncope Gastrointestinal: nausea, vomiting, diarrhea, abdominal pain Genitourinary: dysuria, hematuria, flank pain Musculoskeletal: neck pain, back pain, joint pain, edema Neurologic: headaches, seizures Hematologic: easy bruising or bleeding Endocrine: night sweats, acute weight loss Skin: rash, jaundice, redness Psychiatric: suicidal, homicidal ideation Past History Past Medical History: diabetes, GERD, hypertension, PVD, stroke, other (chf) Past Surgical History: bowel surgery, Other (colostomy (pt does not know why)) Social history: single, lives with family, smoking Family history: diabetes, hypertension Medications and Allergies Allergies Allergy/AdvReac Type Severity Reaction Status Date / Time Penicillins Allergy Swelling Verified 04/19/21 18:25 Home Medications Medication Instructions Recorded Confirmed Last Taken Type Nicotine [Habitrol] 14 mg TD QDAY #30 patch 07/23/19 12/29/21 Unknown Rx Aspirin 325 mg PO QDAY #90 tablet 04/21/21 12/29/21 Unknown Rx AtorvaSTATin [Lipitor] 80 mg PO QHS #90 tablet 04/21/21 12/29/21 Unknown Rx Baclofen [Lioresal] 20 mg PO Q8H PRN #20 tablet 04/21/21 12/29/21 Unknown Rx Clopidogrel [Plavix] 75 mg PO QDAY #90 tablet 04/21/21 12/29/21 Unknown Rx Famotidine [Pepcid] 20 mg PO BID #60 tablet 04/21/21 12/29/21 Unknown Rx Gabapentin 600 mg PO Q8HR #90 cap 04/21/21 12/29/21 Unknown Rx Insulin NPH/Regular [NovoLIN 70/30] 15 unit SUB-Q BIDDIAB 30 Days 04/21/21 12/29/21 Unknown Rx Lispro Insulin [HumaLOG] 0 unit SUB-Q ACHS 30 Days 04/21/21 12/29/21 Unknown Rx levoFLOXacin [Levaquin TAB] 500 mg PO QDAY #3 tablet 04/21/21 12/29/21 Unknown Rx traMADoL [Ultram 50 MG tab] 50 mg PO Q6HR PRN #12 tablet 04/21/21 12/29/21 Unknown Rx amLODIPine 5 mg PO DAILY #30 tab 04/22/21 12/29/21 Unknown Rx Active Meds: Active Medications Acetaminophen (Acetaminophen 325 Mg Tab) 650 mg PO Q8H PRN PRN Reason: Pain, Mild (1-3) Al Hydrox/Mg Hydrox/Simethicone (Alum-Mag Hydroxide-Simethicone [phone]/5ml Oral Liqd 30 Ml) 30 ml PO Q4H PRN PRN Reason: Indigestion Albuterol (Albuterol 2.5 Mg/3 Ml Nebu) 2.5 mg IH Q4HRT PRN PRN Reason: Shortness Of Breath Amlodipine Besylate (Amlodipine 5 Mg Tab) 5 mg PO QDAY [facility] Last Admin: 12/30/21 10:29 Dose: 5 mg Aspirin (Aspirin 325 Mg Tab) 325 mg PO QDAY [facility] Last Admin: 12/30/21 10:28 Dose: 325 mg Atorvastatin Calcium (Atorvastatin 40 Mg Tab) 80 mg PO QHS [facility] Last Admin: 12/30/21 22:36 Dose: 80 mg Clopidogrel Bisulfate (Clopidogrel 75 Mg Tab) 75 mg PO QDAY [facility] Last Admin: 12/30/21 10:29 Dose: 75 mg Dextrose (Dextrose 10% *Hypoglycemia) 0 ml IV DIRECT PRN; Protocol PRN Reason: Hypoglycemia Dextrose (Dextrose 50% In Water (25gm) 50 Ml Syringe) 50 ml IV Q30MIN PRN; Protocol PRN Reason: Hypoglycemia Duloxetine HCl (Duloxetine 30 Mg Cap) 60 mg PO QDAY [facility] Last Admin: 12/30/21 10:28 Dose: 60 mg Famotidine (Famotidine 10 Mg Tab) 10 mg PO BID [facility] Last Admin: 12/30/21 22:36 Dose: 10 mg Gabapentin (Gabapentin 300 Mg Cap) 300 mg PO BID [facility] Last Admin: 12/30/21 22:36 Dose: 300 mg Hydromorphone HCl (Hydromorphone 1 Mg/1 Ml Inj) 0.25 mg IV Q6H PRN PRN Reason: Pain, Moderate (4-6) Last Admin: 12/31/21 09:47 Dose: 0.25 mg Clindamycin HCl (Cleocin 900 Mg/50 Ml) 900 mg in 50 mls @ 100 mls/hr IV Q8H [facility]; Protocol Last Admin: 12/31/21 09:47 Dose: 100 mls/hr Meropenem (Merrem/Ns 500 Mg/50 Ml) 500 mg in 50 mls @ 50 mls/hr IV Q6H [facility] Last Admin: 12/31/21 09:48 Dose: 50 mls/hr Insulin Glargine (Insulin Glargine 100 Units/Ml) 25 units SUB-Q QHS [facility] Last Admin: 12/30/21 22:37 Dose: 25 units Insulin Human Lispro (Insulin Lispro 100 Unit/Ml) 0 unit SUB-Q ACHS [facility]; Protocol Last Admin: 12/31/21 11:30 Dose: Not Given Lisinopril (Lisinopril 10 Mg Tab) 10 mg PO QDAY [facility] Last Admin: 12/30/21 10:29 Dose: 10 mg Nicotine (Nicotine 14 Mg/24 Hr Patch) 14 mg TD QDAY [facility] Last Admin: 12/30/21 10:12 Dose: 14 mg Ondansetron HCl (Ondansetron 4 Mg/2 Ml Inj) 4 mg IV Q8H PRN PRN Reason: Nausea And Vomiting Last Admin: 12/31/21 09:47 Dose: 4 mg Sodium Chloride (Sodium Chloride 0.9% 10 Ml Flush Syringe) 10 ml IV BID [facility] Last Admin: 12/31/21 09:48 Dose: 10 ml Sodium Chloride (Sodium Chloride 0.9% 10 Ml Flush Syringe) 10 ml IV PRN PRN PRN Reason: LINE FLUSH Tramadol HCl (Tramadol 50 Mg Tab) 50 mg PO Q6H PRN PRN Reason: Pain , Severe (7-10) Last Admin: 12/30/21 17:32 Dose: 50 mg Physical Examination - Physical Exam Narrative exam: Physical Exam: Constitutional: Alert, cooperative. No acute distress Head, Ears, Nose: Normocephalic, atraumatic. External ears, nose normal Eyes: Conjunctivae/corneas clear. No icterus. No ptosis. Neck: Supple, no meningeal signs Oral: dentition fair, no thrush Cardiovascular: S1, S2 normal. Respiratory: Good air entry, clear to auscultation bilaterally GI: Soft, non-tender; bowel sounds normal. No peritoneal signs. Musculoskeletal: Right leg dressed Skin: No rash or abscess Hem/Lymphatic: No palpable cervical or supraclavicular nodes. No lymphangitis Psych: Mood ok. Affect normal Neurological: Awake, alert, oriented. No gross abnormality - Constitutional Vitals: Vital Signs Temp Pulse Resp BP Pulse Ox 98.2 F 91 H 18 132/78 97 12/31/21 03:30 12/31/21 03:30 12/31/21 03:30 12/31/21 03:30 12/31/21 10:00 Temperature -Last 24 Hours Temperature 98.2 F Temperature 97.8 F Temperature 98.3 F Results - Labs CBC & Chem 7: 12/30/21 04:42 12/30/21 04:42 Labs: Abnormal lab results 12/30/21 12/30/21 12/31/21 Range/Units 16:25 21:27 07:31 POC Glucose 209 H 169 H 164 H (70-105) mg/dL 12/31/21 12/31/21 Range/Units 11:46 15:26 POC Glucose 172 H 154 H (70-105) mg/dL Assessment and Plan Cultures: Blood culture 12/28/2021 no growth so far Wound culture 12/28/2021 no growth so far A/P: 66-year-old female past medical history CVA on antiplatelet therapy, hypertension, CHF, chronic debility now with: #Acute sepsis: Present with leukocytosis and tachycardia on admission. Secondary to below. #Right leg necrotizing fasciitis: 2X debridements in the OR. Cultures remain negative. #Hyperglycemia: Check glycemic control for best wound healing Recs: -Continue meropenem for now -Stop clindamycin -Added vancomycin -Follow-up cultures -If further debridement performed, would obtain new cultures. Thank you for the consult, we will continue to follow. Yen Lawrence MD [facility] ([facility] O: [phone] F: [phone]
[2021-12-31] MEDS ORDERED: VANCOMYCIN PHARMACY TO DOSE IV SCH (17:00)
[2021-12-31] MEDS ORDERED: VANCOMYCIN 2,000 MG in SODIUM CHLORIDE 0.9% 500 ML 500 ML IV ONE (18:00)
[2021-12-31] MEDS: NICOTINE 14 MG/24 HR PATCH TD SCH (18:10)
[2021-12-31] MEDS: CLOPIDOGREL 75 MG TAB PO SCH (18:10)
[2021-12-31] MEDS: LISINOPRIL 10 MG TAB PO SCH (18:11)
[2021-12-31] MEDS: amLODIPine 5 MG TAB PO SCH (18:12)
[2021-12-31] MEDS: ASPIRIN 325 MG TAB PO SCH (18:12)
[2021-12-31] MEDS: DULoxetine 30 MG CAP PO SCH (18:14)
[2021-12-31] MEDS: traMADol 50 MG TAB PO PRN (18:32)
--- NOTE | 2021-12-31 18:50 | Post Anesthesia Evaluation ---
- Post Anesthesia Evaluation Patient Participated: Yes Airway Patent: Yes Stable Respiratory Function: Yes Nausea/Vomiting: No Temp > 96.8F: Yes Pain Manageable: Yes Adequeate Hydration: Yes Anesthesia Complications: No Block Receding Appropriately: Not Applicable Patient on Ventilator: No
[2021-12-31] MEDS: INSULIN GLARGINE 100 UNITS/ML SUB-Q SCH (22:02)
[2022-01-01] MEDS: MEROPENEM/NS 500 MG/50 ML 500 MG/50 ML BAG IV SCH ×4 (03:45→22:01)
[2022-01-01] MEDS: traMADol 50 MG TAB PO PRN ×3 (04:24→22:06)
[2022-01-01] MEDS: VANCOMYCIN/NS 1 GM/250 ML 1 GM/250 ML BAG IV SCH ×2 (05:17→17:15)
[2022-01-01] MEDS: INSULIN LISPRO 100 UNIT/ML SUB-Q SCH ×4 (07:30→22:10)
[2022-01-01] MEDS: amLODIPine 5 MG TAB PO SCH (09:06)
[2022-01-01] MEDS: GABAPENTIN 300 MG CAP PO SCH ×2 (09:06→22:01)
[2022-01-01] MEDS: CLOPIDOGREL 75 MG TAB PO SCH (09:06)
[2022-01-01] MEDS: LISINOPRIL 10 MG TAB PO SCH (09:06)
[2022-01-01] MEDS: ASPIRIN 325 MG TAB PO SCH (09:06)
[2022-01-01] MEDS: FAMOTIDINE 10 MG TAB PO SCH ×2 (09:06→22:01)
[2022-01-01] MEDS: DULoxetine 30 MG CAP PO SCH (09:06)
[2022-01-01] MEDS: NICOTINE 14 MG/24 HR PATCH TD SCH (09:06)
[2022-01-01 11:03] LABS: ABG Base Excess 9.1 mmol/L (-2.0-3.0); ABG HCO3 35.3 mmol/L (20.0-26.0); ABG Methemoglobin 0.5 % (0.0-1.5); ABG PCO2 56.6 mm Hg; ABG PH 7.413 pH Units (7.350-7.450); ABG PO2 54.5 mm Hg (80.0-90.0)
--- NOTE | 2022-01-01 11:29 | Progress Note ---
Assessment and Plan Cellulitis (R. Lower ext Necrotizing fascitis) DM II Morbid obesity Tobacco use disorder/Nicotine dependence Lactic acidosis Leukocytosis Severe anal condylomata - prn supplemental oxygen to keep O2 sats > 90% - prn bronchodilators ([place]) with pulm hygiene per RT - avoid nephrotoxins, renally dose all medications - continue mobility protocols to prevent pressure ulcers - PT/OT as tolerated - Wound care per RN/WCT under surgeons direction - continue accuchecks with glycemic control per SSI for target blood glucose < 180 mg/dL - tobacco abstinence strongly counseled at the bedside - home oxygen evaluation at discharge - GI & VTE prophylaxis - Flu & pneumovax per protocol - continue other care per attending / other consultants - prn analgesia per pain score ... re-evaluate in am & prn Subjective Date of service: 01/01/22 Principal diagnosis: Cellulitis (Nec Faciitis); DM II; Morbid obesity ; Tobacco abuse; Acidosis Interval history: Patient is seen today for: Cellulitis (Nec Faciitis); DM II; Morbid obesity ; Tobacco use disorder; Lactic acidosis; Leukocytosis; Severe anal condylomata Seen and examined at bedside; 24hour events reviewed; nursing and respiratory care staff consulted; no adverse overnight events reported to me; resting in bed; denies acute chest pain or SOB Objective Vital Signs - 12hr 01/01/22 01/01/22 00:00 11:18 Temperature 98.8 F 98.3 F Pulse Rate 69 92 H Respiratory 18 18 Rate Blood Pressure 128/63 Blood Pressure 120/70 [Left] O2 Sat by Pulse 99 93 Oximetry Constitutional: no acute distress, asleep, other (Obese.) Eyes: non-icteric ENT: oropharynx moist Neck: supple, no lymphadenopathy Effort: mildly labored Ascultation: Bilateral: clear, diminished breath sounds Percussion: Bilateral: not dull Cardiovascular: regular rate and rhythm Gastrointestinal: normoactive bowel sounds, soft, non-tender Integumentary: normal Extremities: edema, other (Cellulitis, right thigh.) Neurologic: non-focal exam, pupils equal and round, CN II-XII normal Psychiatric: other (flat affect) CBC and BMP: 01/02/22 07:25 01/02/22 07:25 ABG, PT/INR, D-dimer: ABG ABG pH 7.413 pH Units (7.350-7.450) 01/01/22 10:48 ABG pCO2 56.6 mm Hg 01/01/22 10:48 ABG pO2 54.5 mm Hg (80.0-90.0) L 01/01/22 10:48 ABG O2 Saturation 89.0 % (95.0-99.0) L 01/01/22 10:48 Abnormal lab findings: Abnormal Labs 12/28/21 12/28/21 12/28/21 12:49 12:49 12:49 WBC 34.9 H Hgb 14.7 H Hct 47.7 H MCH MCHC Seg Neuts % (Manual) 90.0 H Lymphocytes % (Manual) 0 L Seg Neutrophils # Man 31.4 H Lymphocytes # (Manual) 0.0 L Monocytes # (Manual) 1.4 H ABG pO2 ABG HCO3 ABG O2 Saturation ABG Base Excess ABG Hemoglobin Oxyhemoglobin Potassium Carbon Dioxide Glucose 362 H POC Glucose Lactic Acid Calcium Alkaline Phosphatase 269 H Total Protein Albumin 3.1 L Ur Specific [place] Salicylates < 0.3 L Acetaminophen 12/28/21 12/28/21 12/28/21 12:49 19:00 19:04 WBC Hgb Hct MCH MCHC Seg Neuts % (Manual) Lymphocytes % (Manual) Seg Neutrophils # Man Lymphocytes # (Manual) Monocytes # (Manual) ABG pO2 ABG HCO3 ABG O2 Saturation ABG Base Excess ABG Hemoglobin Oxyhemoglobin Potassium Carbon Dioxide Glucose POC Glucose Lactic Acid 3.30 H* Calcium Alkaline Phosphatase Total Protein Albumin Ur Specific [place] 1.043 H Salicylates Acetaminophen 5.0 L 12/28/21 12/28/21 12/28/21 20:41 20:56 20:56 WBC Hgb Hct MCH MCHC Seg Neuts % (Manual) Lymphocytes % (Manual) Seg Neutrophils # Man Lymphocytes # (Manual) Monocytes # (Manual) ABG pO2 ABG HCO3 ABG O2 Saturation ABG Base Excess ABG Hemoglobin Oxyhemoglobin Potassium Carbon Dioxide 20 L Glucose 419 H POC Glucose 399 H Lactic Acid 2.80 H* Calcium 8.1 L Alkaline Phosphatase Total Protein Albumin Ur Specific [place] Salicylates Acetaminophen 12/28/21 12/29/21 12/29/21 22:00 00:16 04:47 WBC 30.7 H Hgb Hct MCH 33 H MCHC 35 H Seg Neuts % (Manual) 94.0 H Lymphocytes % (Manual) 2.0 L Seg Neutrophils # Man 28.9 H Lymphocytes # (Manual) 0.6 L Monocytes # (Manual) ABG pO2 ABG HCO3 ABG O2 Saturation ABG Base Excess ABG Hemoglobin Oxyhemoglobin Potassium Carbon Dioxide Glucose POC Glucose 358 H 257 H Lactic Acid Calcium Alkaline Phosphatase Total Protein Albumin Ur Specific [place] Salicylates Acetaminophen 12/29/21 12/29/21 12/29/21 04:47 11:25 17:14 WBC Hgb Hct MCH MCHC Seg Neuts % (Manual) Lymphocytes % (Manual) Seg Neutrophils # Man Lymphocytes # (Manual) Monocytes # (Manual) ABG pO2 ABG HCO3 ABG O2 Saturation ABG Base Excess ABG Hemoglobin Oxyhemoglobin Potassium Carbon Dioxide Glucose 280 H POC Glucose 321 H 136 H Lactic Acid Calcium 8.0 L Alkaline Phosphatase 237 H Total Protein 6.0 L Albumin 2.3 L Ur Specific [place] Salicylates Acetaminophen 12/29/21 12/30/21 12/30/21 20:59 04:42 04:42 WBC 19.9 H Hgb Hct MCH MCHC Seg Neuts % (Manual) Lymphocytes % (Manual) Seg Neutrophils # Man Lymphocytes # (Manual) Monocytes # (Manual) ABG pO2 ABG HCO3 ABG O2 Saturation ABG Base Excess ABG Hemoglobin Oxyhemoglobin Potassium 3.2 L Carbon Dioxide Glucose 172 H POC Glucose 150 H Lactic Acid Calcium 8.3 L Alkaline Phosphatase Total Protein Albumin Ur Specific [place] Salicylates Acetaminophen 12/30/21 12/30/21 12/30/21 08:14 11:23 16:25 WBC Hgb Hct MCH MCHC Seg Neuts % (Manual) Lymphocytes % (Manual) Seg Neutrophils # Man Lymphocytes # (Manual) Monocytes # (Manual) ABG pO2 ABG HCO3 ABG O2 Saturation ABG Base Excess ABG Hemoglobin Oxyhemoglobin Potassium Carbon Dioxide Glucose POC Glucose 194 H 245 H 209 H Lactic Acid Calcium Alkaline Phosphatase Total Protein Albumin Ur Specific [place] Salicylates Acetaminophen 12/30/21 12/31/21 12/31/21 21:27 07:31 11:46 WBC Hgb Hct MCH MCHC Seg Neuts % (Manual) Lymphocytes % (Manual) Seg Neutrophils # Man Lymphocytes # (Manual) Monocytes # (Manual) ABG pO2 ABG HCO3 ABG O2 Saturation ABG Base Excess ABG Hemoglobin Oxyhemoglobin Potassium Carbon Dioxide Glucose POC Glucose 169 H 164 H 172 H Lactic Acid Calcium Alkaline Phosphatase Total Protein Albumin Ur Specific [place] Salicylates Acetaminophen 12/31/21 12/31/21 01/01/22 15:26 21:44 07:38 WBC Hgb Hct MCH MCHC Seg Neuts % (Manual) Lymphocytes % (Manual) Seg Neutrophils # Man Lymphocytes # (Manual) Monocytes # (Manual) ABG pO2 ABG HCO3 ABG O2 Saturation ABG Base Excess ABG Hemoglobin Oxyhemoglobin Potassium Carbon Dioxide Glucose POC Glucose 154 H 272 H 143 H Lactic Acid Calcium Alkaline Phosphatase Total Protein Albumin Ur Specific [place] Salicylates Acetaminophen 01/01/22 10:48 WBC Hgb Hct MCH MCHC Seg Neuts % (Manual) Lymphocytes % (Manual) Seg Neutrophils # Man Lymphocytes # (Manual) Monocytes # (Manual) ABG pO2 54.5 L ABG HCO3 35.3 H ABG O2 Saturation 89.0 L ABG Base Excess 9.1 H ABG Hemoglobin 11.5 L Oxyhemoglobin 87.4 L Potassium Carbon Dioxide Glucose POC Glucose Lactic Acid Calcium Alkaline Phosphatase Total Protein Albumin Ur Specific [place] Salicylates Acetaminophen Chest x-ray: image reviewed (COPD; no acute findings) Allied health notes reviewed: nursing
--- NOTE | 2022-01-01 13:21 | Progress Note ---
Assessment and Plan Assessment and plan: 66-year-old female with known past medical history of CVA on DAPT, HTN, DM, Diastolic CHF, GERD, Nicotine Dependence, OA, and Debility admitted for sepsis 2/2 necrotizing fasciitis of the right leg s/p wide excisional debridement by General Surgery. #Sepsis #Leukocytosis-improving #Cellulitis of Right Lower Extremity #Necrotizing Fasciitis of the Right Leg status post wide excisional debridement #Lactic Acidosis- resolved 12/28 s/p wide excisional debridement; repeated on 12/31/2021 General surgery consulted; appreciate recs Pulmonology consulted; appreciate recs Infectious disease consulted; appreciate recs Discontinued clindamycin. Continue meropenem 500 mg every 6 hours and starting vancomycin 1 g every 12 hours Leukocytosis downtrending, remains afebrile Blood culture NG x 48hrs #Insulin dependent type II diabetes mellitus with hyperglycemia - hemoglobin A1c: pending - home regimen: NPH 70/30 15 units twice daily - current regimen: Lantus 25 units nightly - blood glucose goal 140-180 while inpatient - continue to monitor #Hypertension #Hyperlipidemia - home medications: Amlodipine 5 mg daily, atorvastatin 80 mg daily - current medications: Amlodipine 5 mg daily, Plavix 75 mg daily, lisinopril 10 mg daily - SBP goal <160 and DBP goal <90 while inpatient - continue to monitor #Hypokalemia - will replete and monitor #Nicotine Dependence - Nicotine patch added - Smoking cessation counseling, supportive care, behavior change counseling, +15 minutes. #Debility - PT/OT consulted #Discharge Planning - Per patient she can not go back to her daughter's house, she would like assistance with placement - Case management consulted #Advanced care planning -Disease education conducted, care plan discussed, diagnoses discussed, prognosis discussed, and patient acknowledges understanding with care plan -Time: +30 min Disposition Plan: Continue medical management Total Time Spent with Patient (Minutes): 45 minutes History Interval history: Patient underwent surgical debridement of necrotizing fasciitis of bilateral inner thighs with general surgery on 12/31/2021. Patient tolerated procedure well without any complications. Patient is currently reporting 8/10 pain. Hospitalist Physical - Constitutional Vitals: Temp Pulse Resp BP Pulse Ox 98.3 F 92 H 18 128/63 93 01/01/22 11:18 01/01/22 11:18 01/01/22 11:18 01/01/22 11:18 01/01/22 11:18 General appearance: Present: no acute distress, well-nourished, obese - EENT Eyes: Present: PERRL, EOM intact ENT: hearing intact, clear oral mucosa - Neck Neck: Present: supple, normal ROM - Respiratory Respiratory effort: normal Respiratory: bilateral: CTA - Cardiovascular Rhythm: regular Heart Sounds: Present: S1 & S2 - Extremities Extremities: pulses intact, pulses symmetrical, normal temperature, abnormal (Significant debridement of bilateral inner thighs bandaged and Kerlix) Peripheral Pulses: within normal limits - Abdominal General gastrointestinal: deferred, non-tender, non-distended, normal bowel sounds - Integumentary Integumentary: Present: clear, warm, dry - Psychiatric Psychiatric: appropriate mood/affect, cooperative - Neurologic Neurologic: CNII-XII intact, moves all extremities - Allied Health Allied health notes reviewed: nursing Results - Labs CBC & Chem 7: 12/30/21 04:42 12/30/21 04:42 Labs: Laboratory Last Values WBC 19.9 K/mm3 (4.5-11.0) H 12/30/21 04:42 RBC 4.00 M/mm3 (3.65-5.03) 12/30/21 04:42 Hgb 12.3 gm/dl (10.1-14.3) 12/30/21 04:42 Hct 37.8 % (30.3-42.9) 12/30/21 04:42 MCV 95 fl (79-97) 12/30/21 04:42 MCH 31 pg (28-32) 12/30/21 04:42 MCHC 33 % (30-34) 12/30/21 04:42 RDW 14.3 % (13.2-15.2) 12/30/21 04:42 Plt Count 337 K/mm3 (140-440) 12/30/21 04:42 Add Manual Diff Complete 12/29/21 04:47 Total Counted 100 12/29/21 04:47 Seg Neutrophils % Blower Insulator 12/28/21 12:49 Seg Neuts % (Manual) 94.0 % (40.0-70.0) H 12/29/21 04:47 Band Neutrophils % 2.0 % 12/29/21 04:47 Lymphocytes % (Manual) 2.0 % (13.4-35.0) L 12/29/21 04:47 Reactive Lymphs % (Man) 0 % 12/29/21 04:47 Monocytes % (Manual) 2.0 % (0.0-7.3) 12/29/21 04:47 Eosinophils % (Manual) 0 % (0.0-4.3) 12/29/21 04:47 Basophils % (Manual) 0 % (0.0-1.8) 12/29/21 04:47 Metamyelocytes % 0 % 12/29/21 04:47 Myelocytes % 0 % 12/29/21 04:47 Promyelocytes % 0 % 12/29/21 04:47 Blast Cells % 0 % 12/29/21 04:47 Nucleated RBC % Not Reportable 12/29/21 04:47 Seg Neutrophils # Man 28.9 K/mm3 (1.8-7.7) H 12/29/21 04:47 Band Neutrophils # 0.6 K/mm3 12/29/21 04:47 Lymphocytes # (Manual) 0.6 K/mm3 (1.2-5.4) L 12/29/21 04:47 Abs React Lymphs (Man) 0.0 K/mm3 12/29/21 04:47 Monocytes # (Manual) 0.6 K/mm3 (0.0-0.8) 12/29/21 04:47 Eosinophils # (Manual) 0.0 K/mm3 (0.0-0.4) 12/29/21 04:47 Basophils # (Manual) 0.0 K/mm3 (0.0-0.1) 12/29/21 04:47 Metamyelocytes # 0.0 K/mm3 12/29/21 04:47 Myelocytes # 0.0 K/mm3 12/29/21 04:47 Promyelocytes # 0.0 K/mm3 12/29/21 04:47 Blast Cells # 0.0 K/mm3 12/29/21 04:47 Pathologist Review 12/28/21 12:49 WBC Morphology Not Reportable 12/29/21 04:47 Hypersegmented Neuts Not Reportable 12/29/21 04:47 Hyposegmented Neuts Not Reportable 12/29/21 04:47 Hypogranular Neuts Not Reportable 12/29/21 04:47 Smudge Cells Not Reportable 12/29/21 04:47 Toxic Granulation Not Reportable 12/29/21 04:47 Toxic Vacuolation Not Reportable 12/29/21 04:47 Dohle Bodies Not Reportable 12/29/21 04:47 Pelger-Huet Anomaly Not Reportable 12/29/21 04:47 Kennedi Rods Not Reportable 12/29/21 04:47 Platelet Estimate Consistent w auto 12/29/21 04:47 Clumped Platelets Not Reportable 12/29/21 04:47 Plt Clumps, EDTA Not Reportable 12/29/21 04:47 Large Platelets Few 12/29/21 04:47 Giant Platelets Not Reportable 12/29/21 04:47 Platelet Satelliting Not Reportable 12/29/21 04:47 Plt Morphology Comment Not Reportable 12/29/21 04:47 RBC Morphology Normal 12/29/21 04:47 Dimorphic RBCs Not Reportable 12/29/21 04:47 Polychromasia Not Reportable 12/29/21 04:47 Hypochromasia Not Reportable 12/29/21 04:47 Poikilocytosis Not Reportable 12/29/21 04:47 Anisocytosis Not Reportable 12/29/21 04:47 Microcytosis Not Reportable 12/29/21 04:47 Macrocytosis Not Reportable 12/29/21 04:47 Spherocytes Not Reportable 12/29/21 04:47 Pappenheimer Bodies Not Reportable 12/29/21 04:47 Sickle Cells Not Reportable 12/29/21 04:47 Target Cells Not Reportable 12/29/21 04:47 Tear Drop Cells Not Reportable 12/29/21 04:47 Ovalocytes Not Reportable 12/29/21 04:47 Helmet Cells Not Reportable 12/29/21 04:47 [place] Bodies Not Reportable 12/29/21 04:47 [place] Rings Not Reportable 12/29/21 04:47 Epifanio Cells Not Reportable 12/29/21 04:47 Bite Cells Not Reportable 12/29/21 04:47 Crenated Cell Not Reportable 12/29/21 04:47 Elliptocytes Not Reportable 12/29/21 04:47 Acanthocytes (Spur) Not Reportable 12/29/21 04:47 Rouleaux Not Reportable 12/29/21 04:47 Hemoglobin C Crystals Not Reportable 12/29/21 04:47 Schistocytes Not Reportable 12/29/21 04:47 Malaria parasites Not Reportable 12/29/21 04:47 [place] Bodies Not Reportable 12/29/21 04:47 Hem Pathologist Commnt No 12/29/21 04:47 ABG pH 7.413 pH Units (7.350-7.450) 01/01/22 10:48 ABG pCO2 56.6 mm Hg 01/01/22 10:48 ABG pO2 54.5 mm Hg (80.0-90.0) L 01/01/22 10:48 ABG HCO3 35.3 mmol/L (20.0-26.0) H 01/01/22 10:48 ABG O2 Saturation 89.0 % (95.0-99.0) L 01/01/22 10:48 ABG O2 Content 14.1 (0.0-44) 01/01/22 10:48 ABG Base Excess 9.1 mmol/L (-2.0-3.0) H 01/01/22 10:48 ABG Hemoglobin 11.5 gm/dl (12.0-16.0) L 01/01/22 10:48 ABG Carboxyhemoglobin 1.2 % (0.0-5.0) 01/01/22 10:48 ABG Methemoglobin 0.5 % (0.0-1.5) 01/01/22 10:48 Oxyhemoglobin 87.4 % (95.0-99.0) L 01/01/22 10:48 FiO2 21 % 01/01/22 10:48 Sodium 144 mmol/L (137-145) 12/30/21 04:42 Potassium 3.2 mmol/L (3.6-5.0) L 12/30/21 04:42 Chloride 102.7 mmol/L (98-107) 12/30/21 04:42 Carbon Dioxide 28 mmol/L (22-30) 12/30/21 04:42 Anion Gap 17 mmol/L 12/30/21 04:42 BUN 10 mg/dL (7-17) 12/30/21 04:42 Creatinine 1.0 mg/dL (0.6-1.2) 12/30/21 04:42 Estimated GFR > 60 ml/min 12/30/21 04:42 BUN/Creatinine Ratio 10 % 12/30/21 04:42 Glucose 172 mg/dL (65-100) H 12/30/21 04:42 POC Glucose 256 mg/dL (70-105) H 01/01/22 12:02 Lactic Acid 1.60 mmol/L (0.7-2.0) 12/29/21 13:08 Calcium 8.3 mg/dL (8.4-10.2) L 12/30/21 04:42 Total Bilirubin 0.60 mg/dL (0.1-1.2) 12/29/21 04:47 AST 38 units/L (5-40) 12/29/21 04:47 ALT 31 units/L (7-56) 12/29/21 04:47 Alkaline Phosphatase 237 units/L (35-129) H 12/29/21 04:47 Total Protein 6.0 g/dL (6.3-8.2) L 12/29/21 04:47 Albumin 2.3 g/dL (3.9-5) L 12/29/21 04:47 Albumin/Globulin Ratio 0.6 % 12/29/21 04:47 Urine Color Yellow (Yellow) 12/28/21 19:00 Urine Turbidity Clear (Clear) 12/28/21 19:00 Urine pH 6.0 (5.0-7.0) 12/28/21 19:00 Ur Specific [place] 1.043 (1.003-1.030) H 12/28/21 19:00 Urine Protein 30 mg/dl mg/dL (Negative) 12/28/21 19:00 Urine Glucose (UA) >=500 mg/dL (Negative) 12/28/21 19:00 Urine Ketones Neg mg/dL (Negative) 12/28/21 19:00 Urine Blood Neg (Negative) 12/28/21 19:00 Urine Nitrite Neg (Negative) 12/28/21 19:00 Urine Bilirubin Neg (Negative) 12/28/21 19:00 Urine Urobilinogen 4.0 mg/dL (<2.0) 12/28/21 19:00 Ur Leukocyte Esterase Neg (Negative) 12/28/21 19:00 Urine WBC (Auto) 6.0 /HPF (0.0-6.0) 12/28/21 19:00 Urine RBC (Auto) 14.0 /HPF (0.0-6.0) 12/28/21 19:00 U Epithel Cells (Auto) 2.0 /HPF (0-13.0) 12/28/21 19:00 Urine Bacteria (Auto) 1+ /HPF (Negative) 12/28/21 19:00 Urine Mucus Few /HPF 12/28/21 19:00 Urine Yeast (Budding) 1+ /HPF 12/28/21 19:00 Nasal Screen MRSA (PCR) Negative (Negative) 12/29/21 14:30 Salicylates < 0.3 mg/dL (2.8-20.0) L 12/28/21 12:49 Urine Opiates Screen Presumptive negative 12/28/21 19:00 Urine Methadone Screen Presumptive negative 12/28/21 19:00 Acetaminophen 5.0 ug/mL (10.0-30.0) L 12/28/21 12:49 Ur Barbiturates Screen Presumptive negative 12/28/21 19:00 Ur Phencyclidine Scrn Presumptive negative 12/28/21 19:00 Ur Amphetamines Screen Presumptive negative 12/28/21 19:00 U Benzodiazepines Scrn Presumptive negative 12/28/21 19:00 Urine Cocaine Screen Presumptive negative 12/28/21 19:00 U Marijuana (THC) Screen Presumptive positive 12/28/21 19:00 Drugs of Abuse Note Disclamer 12/28/21 19:00 Plasma/Serum Alcohol < 0.01 % (0-0.07) 12/28/21 12:49 Blood Type A POSITIVE 12/28/21 15:20 Antibody Screen Negative 12/28/21 15:20 Microbiology: Microbiology 12/28/21 14:56 Peripheral/Venous Blood Culture - Preliminary NO GROWTH AFTER 72 HOURS 12/28/21 14:56 Peripheral/Venous Blood Culture - Preliminary NO GROWTH AFTER 72 HOURS 12/28/21 Unknown Leg - Right Surgical Culture - Preliminary Enriquez/IV: Voiding Method External Female Catheter Active Medications - Current Medications Current Medications: Generic Name Dose Route Start Last Admin Trade Name Freq PRN Reason Stop Dose Admin Acetaminophen 650 mg 12/28/21 20:33 Acetaminophen 325 Mg Tab PO Q8H PRN Pain, Mild (1-3) Al Hydrox/Mg Hydrox/Simethicone 30 ml 12/30/21 17:30 Alum-Mag Hydroxide-Simethicone [phone]/5ml Oral Liqd 30 Ml PO Q4H PRN Indigestion Albuterol 2.5 mg 12/28/21 20:31 Albuterol 2.5 Mg/3 Ml Nebu IH Q4HRT PRN Shortness Of Breath Amlodipine Besylate 5 mg 12/30/21 10:00 01/01/22 09:06 Amlodipine 5 Mg Tab PO 5 mg QDAY BAUTISTA Administration Aspirin 325 mg 12/30/21 10:00 01/01/22 09:06 Aspirin 325 Mg Tab PO 325 mg QDAY BAUTISTA Administration Atorvastatin Calcium 80 mg 12/29/21 22:00 12/31/21 22:02 Atorvastatin 40 Mg Tab PO 80 mg QHS BAUTISTA Administration Clopidogrel Bisulfate 75 mg 12/30/21 10:00 01/01/22 09:06 Clopidogrel 75 Mg Tab PO 75 mg QDAY BAUTISTA Administration Dextrose 0 ml 12/28/21 20:32 Dextrose 10% *Hypoglycemia IV DIRECT PRN Hypoglycemia Protocol Dextrose 50 ml 12/29/21 11:13 Dextrose 50% In Water (25gm) 50 Ml Syringe IV Q30MIN PRN Hypoglycemia Protocol Duloxetine HCl 60 mg 12/30/21 10:00 01/01/22 09:06 Duloxetine 30 Mg Cap PO 60 mg QDAY BAUTISTA Administration Famotidine 10 mg 12/29/21 22:00 01/01/22 09:06 Famotidine 10 Mg Tab PO 10 mg BID BAUTISTA Administration Gabapentin 300 mg 12/29/21 22:00 01/01/22 09:06 Gabapentin 300 Mg Cap PO 300 mg BID BAUTISTA Administration Hydromorphone HCl 0.25 mg 12/28/21 20:31 12/31/21 09:47 Hydromorphone 1 Mg/1 Ml Inj IV 0.25 mg Q6H PRN Administration Pain, Moderate (4-6) Hydromorphone HCl 0.5 mg 12/31/21 15:10 01/01/22 09:04 Hydromorphone 1 Mg/1 Ml Inj IV 01/01/22 15:09 0.5 mg Q10MIN PRN Administration Pain , Severe (7-10) Meropenem 500 mg in 50 mls @ 50 mls/hr 12/29/21 22:00 01/01/22 09:16 Merrem/Ns 500 Mg/50 Ml IV 50 mls/hr Q6H BAUTISTA Administration Vancomycin HCl 1 gm in 250 mls @ 166.667 mls/hr 01/01/22 06:00 01/01/22 05:17 Vancomycin/Ns 1 Gm/250 Ml IV 166.667 mls/hr Q12H BAUTISTA Administration Insulin Glargine 25 units 12/30/21 22:00 12/31/21 22:02 Insulin Glargine 100 Units/Ml SUB-Q 25 units QHS BAUTISTA Administration Insulin Human Lispro 0 unit 12/29/21 11:30 01/01/22 11:30 Insulin Lispro 100 Unit/Ml SUB-Q 6 unit ACHS BAUTISTA Administration Protocol Lisinopril 10 mg 12/30/21 10:00 01/01/22 09:06 Lisinopril 10 Mg Tab PO 10 mg QDAY BAUTISTA Administration Nicotine 14 mg 12/29/21 17:00 01/01/22 09:06 Nicotine 14 Mg/24 Hr Patch TD 14 mg QDAY BAUTISTA Administration Ondansetron HCl 4 mg 12/28/21 20:31 12/31/21 09:47 Ondansetron 4 Mg/2 Ml Inj IV 4 mg Q8H PRN Administration Nausea And Vomiting Sodium Chloride 10 ml 12/28/21 22:00 01/01/22 09:06 Sodium Chloride 0.9% 10 Ml Flush Syringe IV 10 ml BID BAUTISTA Administration Sodium Chloride 10 ml 12/28/21 20:31 Sodium Chloride 0.9% 10 Ml Flush Syringe IV PRN PRN LINE FLUSH Tramadol HCl 50 mg 12/28/21 14:22 01/01/22 04:24 Tramadol 50 Mg Tab PO 50 mg Q6H PRN Administration Pain , Severe (7-10)
--- NOTE | 2022-01-01 13:42 | Progress Note ---
Assessment and Plan Postoperative day #4 status post wide excisional debridement for necrotizing fasciitis of the right upper leg. Postop day #1 status post wound evaluation under anesthesia and light debridement. Patient is afebrile and stable. No further surgical intervention is indicated at this time. Orders written for nursing wound care to change dressing twice daily with Dakin's moistened Kerlix. Recommend when she goes to LTAC facility upon discharge she gets wound VAC placed there. She can also follow-up with outpatient wound care. Subjective Date of service: 01/01/22 Narrative: No acute events overnight. Patient has no complaints. Objective Vital Signs - 12hr 01/01/22 01/01/22 10:00 11:18 Temperature 98.3 F Pulse Rate 92 H Respiratory 18 Rate Blood Pressure 128/63 O2 Sat by Pulse 95 93 Oximetry - General physical appearance well developed, no distress, no pain, chronically ill, obese - ENT no hearing loss - Respiratory normal expansion, normal respiratory effort - Abdomen soft, not tender, other (Ostomy with urine stool in the bag) - Integumentary other (Right leg dressing clean dry and intact) - Labs 12/30/21 04:42 12/30/21 04:42
--- NOTE | 2022-01-01 16:33 | Progress Note ---
Assessment and Plan Cultures: Blood culture 12/28/2021 no growth so far Wound culture 12/28/2021 no growth so far A/P: 66-year-old female past medical history CVA on antiplatelet therapy, hypertension, CHF, chronic debility now with: #Acute sepsis: Present with leukocytosis and tachycardia on admission. Secondary to below. #Right leg necrotizing fasciitis: 2X debridements in the OR. Cultures remain negative. #Hyperglycemia: Check glycemic control for best wound healing Recs: -Continue meropenem for now -Added vancomycin -Follow-up cultures -If further debridement performed, would obtain new cultures. -If no further surgery performed, culture negative okay to discharge on doxycycline 100 mg every 12 hours and Augmentin 875/125 mg every 12 hours to complete 10 days. Thank you for the consult, we will continue to follow. Yen Lawrence MD [facility] ([facility]) O: [phone] F: [phone] Subjective Date of service: 01/01/22 Principal diagnosis: Cellulitis (Nec Faciitis); DM II; Morbid obesity ; Tobacco abuse; Acidosis Interval history: Afebrile, no acute change. Objective - Exam Narrative Exam: Physical Exam: Constitutional: Alert, cooperative. No acute distress Head, Ears, Nose: Normocephalic, atraumatic. External ears, nose normal Eyes: Conjunctivae/corneas clear. No icterus. No ptosis. Neck: Supple, no meningeal signs Oral: dentition fair, no thrush Cardiovascular: S1, S2 normal. Respiratory: Good air entry, clear to auscultation bilaterally GI: Soft, non-tender; bowel sounds normal. No peritoneal signs. Musculoskeletal: Right leg dressed Skin: No rash or abscess Hem/Lymphatic: No palpable cervical or supraclavicular nodes. No lymphangitis Psych: Mood ok. Affect normal Neurological: Awake, alert, oriented. No gross abnormality - Constitutional Vitals: Vital Signs Temp Pulse Resp BP Pulse Ox 98.3 F 92 H 18 128/63 93 01/01/22 11:18 01/01/22 11:18 01/01/22 11:18 01/01/22 11:18 01/01/22 11:18 Temperature -Last 24 Hours Temperature 98.3 F Temperature 98.8 F - Labs CBC & Chem 7: 12/30/21 04:42 12/30/21 04:42 Labs: Abnormal lab results 12/31/21 01/01/22 01/01/22 Range/Units 21:44 07:38 10:48 ABG pO2 54.5 L (80.0-90.0) mm Hg ABG HCO3 35.3 H (20.0-26.0) mmol/L ABG O2 Saturation 89.0 L (95.0-99.0) % ABG Base Excess 9.1 H (-2.0-3.0) mmol/L ABG Hemoglobin 11.5 L (12.0-16.0) gm/dl Oxyhemoglobin 87.4 L (95.0-99.0) % POC Glucose 272 H 143 H (70-105) mg/dL 01/01/22 Range/Units 12:02 ABG pO2 (80.0-90.0) mm Hg ABG HCO3 (20.0-26.0) mmol/L ABG O2 Saturation (95.0-99.0) % ABG Base Excess (-2.0-3.0) mmol/L ABG Hemoglobin (12.0-16.0) gm/dl Oxyhemoglobin (95.0-99.0) % POC Glucose 256 H (70-105) mg/dL
--- NOTE | 2022-01-01 17:00 | XRay Report ---
CHEST 2 VIEWS INDICATION / CLINICAL INFORMATION: Sepsis. COMPARISON: 03/29/21. FINDINGS: SUPPORT DEVICES: None. HEART / MEDIASTINUM: The heart size and pulmonary vasculature are normal. LUNGS / PLEURA: No significant pulmonary or pleural abnormality. No pneumothorax. ADDITIONAL FINDINGS: There are moderate degenerative changes involving both glenohumeral joints. IMPRESSION: No acute findings. There is no evidence of pneumonia. Signer Name: Alfonso Chapin MD Signed: 01/01/2022 4:56 PM Workstation Name: [id number]
[2022-01-01] MEDS: INSULIN GLARGINE 100 UNITS/ML SUB-Q SCH (22:01)
[2022-01-02] MEDS: MEROPENEM/NS 500 MG/50 ML 500 MG/50 ML BAG IV SCH ×2 (05:00→11:05)
[2022-01-02] MEDS: traMADol 50 MG TAB PO PRN (05:07)
[2022-01-02] MEDS: VANCOMYCIN/NS 1 GM/250 ML 1 GM/250 ML BAG IV SCH (06:32)
[2022-01-02 08:05] LABS: Hematocrit 34.6 % (30.3-42.9); Hemoglobin 11.6 gm/dl (10.1-14.3); Mean Corpuscular HGB Conc 34 % (30-34); Mean Corpuscular Volume 94 fl (79-97); Platelet Count 439 K/mm3 (140-440); Red Cell Distribution Width 14.4 % (13.2-15.2)
[2022-01-02 08:21] LABS: BUN/Creatinine Ratio 13; Blood Urea Nitrogen 10 mg/dL (7-17); Calcium 8.4 mg/dL (8.4-10.2); Hemolysis Index 7
[2022-01-02 09:07] LABS: Band Neutrophils # (Manual) 0.1 K/mm3; Large Platelets Few; Myelocytes # (Manual) 0.3 K/mm3; Total Cells Counted 100
[2022-01-02 09:08] LABS: Platelet Estimate Consistent w Auto
[2022-01-02] MEDS: HYDROmorphone 1 MG/1 ML INJ IV PRN ×3 (09:25→23:23)
[2022-01-02] MEDS: GABAPENTIN 300 MG CAP PO SCH ×2 (09:32→22:58)
[2022-01-02] MEDS: CLOPIDOGREL 75 MG TAB PO SCH (09:32)
[2022-01-02] MEDS: amLODIPine 5 MG TAB PO SCH (09:32)
[2022-01-02] MEDS: FAMOTIDINE 10 MG TAB PO SCH ×2 (09:33→22:58)
[2022-01-02] MEDS: LISINOPRIL 10 MG TAB PO SCH (09:33)
[2022-01-02] MEDS: ASPIRIN 325 MG TAB PO SCH (09:33)
[2022-01-02] MEDS: DULoxetine 30 MG CAP PO SCH (09:33)
[2022-01-02] MEDS: INSULIN LISPRO 100 UNIT/ML SUB-Q SCH ×4 (09:34→22:56)
[2022-01-02] MEDS: NICOTINE 14 MG/24 HR PATCH TD SCH (09:34)
[2022-01-02] MEDS: oxyCODONE /ACETAMINOPHEN 5-325MG TAB PO SCH ×2 (11:01→18:46)
--- NOTE | 2022-01-02 12:09 | Progress Note ---
Assessment and Plan Cellulitis (R. Lower ext Necrotizing fascitis) DM II Morbid obesity Tobacco use disorder/Nicotine dependence Lactic acidosis Leukocytosis Severe anal condylomata - no new issues today, continue care as below; - prn supplemental oxygen to keep O2 sats > 90% - prn bronchodilators ([place]) with pulm hygiene per RT - avoid nephrotoxins, renally dose all medications - continue mobility protocols to prevent pressure ulcers - PT/OT as tolerated - Wound care per RN/WCT under surgeons direction - continue accuchecks with glycemic control per SSI for target blood glucose < 180 mg/dL - tobacco abstinence strongly counseled at the bedside - home oxygen evaluation at discharge - GI & VTE prophylaxis - Flu & pneumovax per protocol - continue other care per attending / other consultants - prn analgesia per pain score ... re-evaluate in am & prn Subjective Date of service: 01/02/22 Principal diagnosis: Cellulitis (Nec Faciitis); DM II; Morbid obesity ; Tobacco abuse; Acidosis Interval history: Patient is seen today for: Cellulitis (Nec Faciitis); DM II; Morbid obesity ; Tobacco use disorder; Lactic acidosis; Leukocytosis; Severe anal condylomata Seen and examined at bedside; 24hour events reviewed; nursing and respiratory care staff consulted; no adverse overnight events reported to me; resting in bed; on room air today; no new issues overnight. Objective Vital Signs - 12hr 01/02/22 01/02/22 01/02/22 04:45 09:25 09:30 Temperature 98.6 F 98.2 F Pulse Rate 65 87 Respiratory 18 18 18 Rate Blood Pressure Blood Pressure 140/71 140/76 [Left] O2 Sat by Pulse 97 Oximetry 01/02/22 09:32 Temperature Pulse Rate 87 Respiratory Rate Blood Pressure 140/76 Blood Pressure [Left] O2 Sat by Pulse 97 Oximetry Constitutional: no acute distress, asleep, other (elderly obese female with mildly increased respiratory effort at rest) Eyes: non-icteric ENT: oropharynx moist Neck: supple, no lymphadenopathy Effort: mildly labored Ascultation: Bilateral: clear, diminished breath sounds Percussion: Bilateral: not dull Cardiovascular: regular rate and rhythm Gastrointestinal: normoactive bowel sounds, soft, non-tender Integumentary: normal Extremities: edema, other (Cellulitis, right thigh.) Neurologic: non-focal exam, pupils equal and round, CN II-XII normal Psychiatric: other (flat affect) CBC and BMP: 01/03/22 04:56 01/03/22 04:56 ABG, PT/INR, D-dimer: ABG ABG pH 7.413 pH Units (7.350-7.450) 01/01/22 10:48 ABG pCO2 56.6 mm Hg 01/01/22 10:48 ABG pO2 54.5 mm Hg (80.0-90.0) L 01/01/22 10:48 ABG O2 Saturation 89.0 % (95.0-99.0) L 01/01/22 10:48 Abnormal lab findings: Abnormal Labs 12/28/21 12/28/21 12/28/21 12:49 12:49 12:49 WBC 34.9 H Hgb 14.7 H Hct 47.7 H MCH MCHC Seg Neuts % (Manual) 90.0 H Lymphocytes % (Manual) 0 L Monocytes % (Manual) Seg Neutrophils # Man 31.4 H Lymphocytes # (Manual) 0.0 L Monocytes # (Manual) 1.4 H ABG pO2 ABG HCO3 ABG O2 Saturation ABG Base Excess ABG Hemoglobin Oxyhemoglobin Potassium Carbon Dioxide Glucose 362 H POC Glucose Lactic Acid Calcium Alkaline Phosphatase 269 H Total Protein Albumin 3.1 L Ur Specific [place] Salicylates < 0.3 L Acetaminophen 12/28/21 12/28/21 12/28/21 12:49 19:00 19:04 WBC Hgb Hct MCH MCHC Seg Neuts % (Manual) Lymphocytes % (Manual) Monocytes % (Manual) Seg Neutrophils # Man Lymphocytes # (Manual) Monocytes # (Manual) ABG pO2 ABG HCO3 ABG O2 Saturation ABG Base Excess ABG Hemoglobin Oxyhemoglobin Potassium Carbon Dioxide Glucose POC Glucose Lactic Acid 3.30 H* Calcium Alkaline Phosphatase Total Protein Albumin Ur Specific [place] 1.043 H Salicylates Acetaminophen 5.0 L 12/28/21 12/28/21 12/28/21 20:41 20:56 20:56 WBC Hgb Hct MCH MCHC Seg Neuts % (Manual) Lymphocytes % (Manual) Monocytes % (Manual) Seg Neutrophils # Man Lymphocytes # (Manual) Monocytes # (Manual) ABG pO2 ABG HCO3 ABG O2 Saturation ABG Base Excess ABG Hemoglobin Oxyhemoglobin Potassium Carbon Dioxide 20 L Glucose 419 H POC Glucose 399 H Lactic Acid 2.80 H* Calcium 8.1 L Alkaline Phosphatase Total Protein Albumin Ur Specific [place] Salicylates Acetaminophen 12/28/21 12/29/21 12/29/21 22:00 00:16 04:47 WBC 30.7 H Hgb Hct MCH 33 H MCHC 35 H Seg Neuts % (Manual) 94.0 H Lymphocytes % (Manual) 2.0 L Monocytes % (Manual) Seg Neutrophils # Man 28.9 H Lymphocytes # (Manual) 0.6 L Monocytes # (Manual) ABG pO2 ABG HCO3 ABG O2 Saturation ABG Base Excess ABG Hemoglobin Oxyhemoglobin Potassium Carbon Dioxide Glucose POC Glucose 358 H 257 H Lactic Acid Calcium Alkaline Phosphatase Total Protein Albumin Ur Specific [place] Salicylates Acetaminophen 12/29/21 12/29/21 12/29/21 04:47 11:25 17:14 WBC Hgb Hct MCH MCHC Seg Neuts % (Manual) Lymphocytes % (Manual) Monocytes % (Manual) Seg Neutrophils # Man Lymphocytes # (Manual) Monocytes # (Manual) ABG pO2 ABG HCO3 ABG O2 Saturation ABG Base Excess ABG Hemoglobin Oxyhemoglobin Potassium Carbon Dioxide Glucose 280 H POC Glucose 321 H 136 H Lactic Acid Calcium 8.0 L Alkaline Phosphatase 237 H Total Protein 6.0 L Albumin 2.3 L Ur Specific [place] Salicylates Acetaminophen 12/29/21 12/30/21 12/30/21 20:59 04:42 04:42 WBC 19.9 H Hgb Hct MCH MCHC Seg Neuts % (Manual) Lymphocytes % (Manual) Monocytes % (Manual) Seg Neutrophils # Man Lymphocytes # (Manual) Monocytes # (Manual) ABG pO2 ABG HCO3 ABG O2 Saturation ABG Base Excess ABG Hemoglobin Oxyhemoglobin Potassium 3.2 L Carbon Dioxide Glucose 172 H POC Glucose 150 H Lactic Acid Calcium 8.3 L Alkaline Phosphatase Total Protein Albumin Ur Specific [place] Salicylates Acetaminophen 12/30/21 12/30/21 12/30/21 08:14 11:23 16:25 WBC Hgb Hct MCH MCHC Seg Neuts % (Manual) Lymphocytes % (Manual) Monocytes % (Manual) Seg Neutrophils # Man Lymphocytes # (Manual) Monocytes # (Manual) ABG pO2 ABG HCO3 ABG O2 Saturation ABG Base Excess ABG Hemoglobin Oxyhemoglobin Potassium Carbon Dioxide Glucose POC Glucose 194 H 245 H 209 H Lactic Acid Calcium Alkaline Phosphatase Total Protein Albumin Ur Specific [place] Salicylates Acetaminophen 12/30/21 12/31/21 12/31/21 21:27 07:31 11:46 WBC Hgb Hct MCH MCHC Seg Neuts % (Manual) Lymphocytes % (Manual) Monocytes % (Manual) Seg Neutrophils # Man Lymphocytes # (Manual) Monocytes # (Manual) ABG pO2 ABG HCO3 ABG O2 Saturation ABG Base Excess ABG Hemoglobin Oxyhemoglobin Potassium Carbon Dioxide Glucose POC Glucose 169 H 164 H 172 H Lactic Acid Calcium Alkaline Phosphatase Total Protein Albumin Ur Specific [place] Salicylates Acetaminophen 12/31/21 12/31/21 01/01/22 15:26 21:44 07:38 WBC Hgb Hct MCH MCHC Seg Neuts % (Manual) Lymphocytes % (Manual) Monocytes % (Manual) Seg Neutrophils # Man Lymphocytes # (Manual) Monocytes # (Manual) ABG pO2 ABG HCO3 ABG O2 Saturation ABG Base Excess ABG Hemoglobin Oxyhemoglobin Potassium Carbon Dioxide Glucose POC Glucose 154 H 272 H 143 H Lactic Acid Calcium Alkaline Phosphatase Total Protein Albumin Ur Specific [place] Salicylates Acetaminophen 01/01/22 01/01/22 01/01/22 10:48 12:02 16:51 WBC Hgb Hct MCH MCHC Seg Neuts % (Manual) Lymphocytes % (Manual) Monocytes % (Manual) Seg Neutrophils # Man Lymphocytes # (Manual) Monocytes # (Manual) ABG pO2 54.5 L ABG HCO3 35.3 H ABG O2 Saturation 89.0 L ABG Base Excess 9.1 H ABG Hemoglobin 11.5 L Oxyhemoglobin 87.4 L Potassium Carbon Dioxide Glucose POC Glucose 256 H 67 L Lactic Acid Calcium Alkaline Phosphatase Total Protein Albumin Ur Specific [place] Salicylates Acetaminophen 01/01/22 01/01/22 01/02/22 17:47 21:36 07:25 WBC 13.4 H Hgb Hct MCH MCHC Seg Neuts % (Manual) 74.0 H Lymphocytes % (Manual) 13.0 L Monocytes % (Manual) 10.0 H Seg Neutrophils # Man 9.9 H Lymphocytes # (Manual) Monocytes # (Manual) 1.3 H ABG pO2 ABG HCO3 ABG O2 Saturation ABG Base Excess ABG Hemoglobin Oxyhemoglobin Potassium Carbon Dioxide Glucose POC Glucose 148 H 278 H Lactic Acid Calcium Alkaline Phosphatase Total Protein Albumin Ur Specific [place] Salicylates Acetaminophen 02/01/02/22 01/02/22 07:25 07:47 11:07 WBC Hgb Hct MCH MCHC Seg Neuts % (Manual) Lymphocytes % (Manual) Monocytes % (Manual) Seg Neutrophils # Man Lymphocytes # (Manual) Monocytes # (Manual) ABG pO2 ABG HCO3 ABG O2 Saturation ABG Base Excess ABG Hemoglobin Oxyhemoglobin Potassium Carbon Dioxide 32 H Glucose 190 H POC Glucose 189 H 256 H Lactic Acid Calcium Alkaline Phosphatase Total Protein Albumin Ur Specific [place] Salicylates Acetaminophen Allied health notes reviewed: nursing
--- NOTE | 2022-01-02 15:01 | Progress Note ---
Assessment and Plan Assessment and plan: 66-year-old female with known past medical history of CVA on DAPT, HTN, DM, Diastolic CHF, GERD, Nicotine Dependence, OA, and Debility admitted for sepsis 2/2 necrotizing fasciitis of the right leg s/p wide excisional debridement by General Surgery. #Sepsis #Leukocytosis-improving #Cellulitis of Right Lower Extremity #Necrotizing Fasciitis of the Right Leg status post wide excisional debridement #Lactic Acidosis- resolved 12/28 s/p wide excisional debridement; repeated on 12/31/2021 General surgery consulted; appreciate recs Pulmonology consulted; appreciate recs Infectious disease consulted; appreciate recs Discontinued clindamycin. Continue meropenem 500 mg every 6 hours and starting vancomycin 1 g every 12 hours Leukocytosis downtrending, remains afebrile Blood culture NG x 48hrs #Insulin dependent type II diabetes mellitus with hyperglycemia - hemoglobin A1c: pending - home regimen: NPH 70/30 15 units twice daily - current regimen: Lantus 25 units nightly - blood glucose goal 140-180 while inpatient - continue to monitor #Hypertension #Hyperlipidemia - home medications: Amlodipine 5 mg daily, atorvastatin 80 mg daily - current medications: Amlodipine 5 mg daily, Plavix 75 mg daily, lisinopril 10 mg daily - SBP goal <160 and DBP goal <90 while inpatient - continue to monitor #Hypokalemia - will replete and monitor #Nicotine Dependence - Nicotine patch added - Smoking cessation counseling, supportive care, behavior change counseling, +15 minutes. #Debility - PT/OT consulted #Advanced care planning -Disease education conducted, care plan discussed, diagnoses discussed, prognosis discussed, and patient acknowledges understanding with care plan -Time: +30 min #Discharge planning - Patient is pending discontinuation of 1013 - Case management has been made aware. - Discharge is tentatively 24 to 48 hours Disposition Plan: Pending possible discharge home tomorrow Total Time Spent with Patient (Minutes): 45 minutes History Interval history: No acute events overnight. Hospitalist Physical - Constitutional Vitals: Temp Pulse Resp BP Pulse Ox 98.2 F 89 18 148/89 97 01/02/22 09:30 01/02/22 11:30 01/02/22 14:49 01/02/22 11:30 01/02/22 09:32 General appearance: Present: mild distress, well-nourished, obese - EENT Eyes: Present: PERRL, EOM intact ENT: hearing intact, clear oral mucosa - Neck Neck: Present: supple, normal ROM - Respiratory Respiratory effort: normal Respiratory: bilateral: CTA - Cardiovascular Rhythm: regular Heart Sounds: Present: S1 & S2 - Extremities Extremities: no ischemia, pulses intact, pulses symmetrical, normal temperature, normal color, abnormal (Bandaged right inner thigh; severe tenderness on palpation) Peripheral Pulses: within normal limits - Abdominal General gastrointestinal: soft, non-tender, non-distended, normal bowel sounds - Integumentary Integumentary: Present: clear, warm, dry - Psychiatric Psychiatric: appropriate mood/affect, cooperative - Neurologic Neurologic: CNII-XII intact, moves all extremities - Allied Health Allied health notes reviewed: nursing Results - Labs CBC & Chem 7: 01/02/22 07:25 01/02/22 07:25 Labs: Laboratory Last Values WBC 13.4 K/mm3 (4.5-11.0) H 01/02/22 07:25 RBC 3.70 M/mm3 (3.65-5.03) 01/02/22 07:25 Hgb 11.6 gm/dl (10.1-14.3) 01/02/22 07:25 Hct 34.6 % (30.3-42.9) 01/02/22 07:25 MCV 94 fl (79-97) 01/02/22 07:25 MCH 31 pg (28-32) 01/02/22 07:25 MCHC 34 % (30-34) 01/02/22 07:25 RDW 14.4 % (13.2-15.2) 01/02/22 07:25 Plt Count 439 K/mm3 (140-440) 01/02/22 07:25 Add Manual Diff Complete 01/02/22 07:25 Total Counted 100 01/02/22 07:25 Seg Neutrophils % Integration Aide 12/28/21 12:49 Seg Neuts % (Manual) 74.0 % (40.0-70.0) H 01/02/22 07:25 Band Neutrophils % 1.0 % 01/02/22 07:25 Lymphocytes % (Manual) 13.0 % (13.4-35.0) L 01/02/22 07:25 Reactive Lymphs % (Man) 0 % 01/02/22 07:25 Monocytes % (Manual) 10.0 % (0.0-7.3) H 01/02/22 07:25 Eosinophils % (Manual) 0 % (0.0-4.3) 12/29/21 04:47 Basophils % (Manual) 0 % (0.0-1.8) 12/29/21 04:47 Metamyelocytes % 0 % 01/02/22 07:25 Myelocytes % 2.0 % 01/02/22 07:25 Promyelocytes % 0 % 01/02/22 07:25 Blast Cells % 0 % 01/02/22 07:25 Nucleated RBC % Not Reportable 01/02/22 07:25 Seg Neutrophils # Man 9.9 K/mm3 (1.8-7.7) H 01/02/22 07:25 Band Neutrophils # 0.1 K/mm3 01/02/22 07:25 Lymphocytes # (Manual) 1.7 K/mm3 (1.2-5.4) 01/02/22 07:25 Abs React Lymphs (Man) 0.0 K/mm3 01/02/22 07:25 Monocytes # (Manual) 1.3 K/mm3 (0.0-0.8) H 01/02/22 07:25 Eosinophils # (Manual) 0.0 K/mm3 (0.0-0.4) 01/02/22 07:25 Basophils # (Manual) 0.0 K/mm3 (0.0-0.1) 01/02/22 07:25 Metamyelocytes # 0.0 K/mm3 01/02/22 07:25 Myelocytes # 0.3 K/mm3 01/02/22 07:25 Promyelocytes # 0.0 K/mm3 01/02/22 07:25 Blast Cells # 0.0 K/mm3 01/02/22 07:25 Pathologist Review 12/28/21 12:49 WBC Morphology Not Reportable 01/02/22 07:25 Hypersegmented Neuts Not Reportable 01/02/22 07:25 Hyposegmented Neuts Not Reportable 01/02/22 07:25 Hypogranular Neuts Not Reportable 01/02/22 07:25 Smudge Cells Not Reportable 01/02/22 07:25 Toxic Granulation Not Reportable 01/02/22 07:25 Toxic Vacuolation Not Reportable 01/02/22 07:25 Dohle Bodies Not Reportable 01/02/22 07:25 Pelger-Huet Anomaly Not Reportable 01/02/22 07:25 Kennedi Rods Not Reportable 01/02/22 07:25 Platelet Estimate Consistent w auto 01/02/22 07:25 Clumped Platelets Not Reportable 01/02/22 07:25 Plt Clumps, EDTA Not Reportable 01/02/22 07:25 Large Platelets Few 01/02/22 07:25 Giant Platelets Not Reportable 01/02/22 07:25 Platelet Satelliting Not Reportable 01/02/22 07:25 Plt Morphology Comment Not Reportable 01/02/22 07:25 RBC Morphology Not Reportable 01/02/22 07:25 Dimorphic RBCs Not Reportable 01/02/22 07:25 Polychromasia Not Reportable 01/02/22 07:25 Hypochromasia Not Reportable 01/02/22 07:25 Poikilocytosis Not Reportable 01/02/22 07:25 Anisocytosis Not Reportable 01/02/22 07:25 Microcytosis Not Reportable 01/02/22 07:25 Macrocytosis Not Reportable 01/02/22 07:25 Spherocytes Not Reportable 01/02/22 07:25 Pappenheimer Bodies Not Reportable 01/02/22 07:25 Sickle Cells Not Reportable 01/02/22 07:25 Target Cells Not Reportable 01/02/22 07:25 Tear Drop Cells Not Reportable 01/02/22 07:25 Ovalocytes Not Reportable 01/02/22 07:25 Helmet Cells Not Reportable 01/02/22 07:25 Freeman-Placedo Bodies Not Reportable 01/02/22 07:25 [place] Rings Not Reportable 01/02/22 07:25 Epifanio Cells Not Reportable 01/02/22 07:25 Bite Cells Not Reportable 01/02/22 07:25 Crenated Cell Not Reportable 01/02/22 07:25 Elliptocytes Not Reportable 01/02/22 07:25 Acanthocytes (Spur) Not Reportable 01/02/22 07:25 Rouleaux Not Reportable 01/02/22 07:25 Hemoglobin C Crystals Not Reportable 01/02/22 07:25 Schistocytes Not Reportable 01/02/22 07:25 Malaria parasites Not Reportable 01/02/22 07:25 [place] Bodies Not Reportable 01/02/22 07:25 Hem Pathologist Commnt No 01/02/22 07:25 ABG pH 7.413 pH Units (7.350-7.450) 01/01/22 10:48 ABG pCO2 56.6 mm Hg 01/01/22 10:48 ABG pO2 54.5 mm Hg (80.0-90.0) L 01/01/22 10:48 ABG HCO3 35.3 mmol/L (20.0-26.0) H 01/01/22 10:48 ABG O2 Saturation 89.0 % (95.0-99.0) L 01/01/22 10:48 ABG O2 Content 14.1 (0.0-44) 01/01/22 10:48 ABG Base Excess 9.1 mmol/L (-2.0-3.0) H 01/01/22 10:48 ABG Hemoglobin 11.5 gm/dl (12.0-16.0) L 01/01/22 10:48 ABG Carboxyhemoglobin 1.2 % (0.0-5.0) 01/01/22 10:48 ABG Methemoglobin 0.5 % (0.0-1.5) 01/01/22 10:48 Oxyhemoglobin 87.4 % (95.0-99.0) L 01/01/22 10:48 FiO2 21 % 01/01/22 10:48 Sodium 143 mmol/L (137-145) 01/02/22 07:25 Potassium 4.3 mmol/L (3.6-5.0) D 01/02/22 07:25 Chloride 100.9 mmol/L (98-107) 01/02/22 07:25 Carbon Dioxide 32 mmol/L (22-30) H 01/02/22 07:25 Anion Gap 14 mmol/L 01/02/22 07:25 BUN 10 mg/dL (7-17) 01/02/22 07:25 Creatinine 0.8 mg/dL (0.6-1.2) 01/02/22 07:25 Estimated GFR > 60 ml/min 01/02/22 07:25 BUN/Creatinine Ratio 13 % 01/02/22 07:25 Glucose 190 mg/dL (65-100) H 01/02/22 07:25 POC Glucose 256 mg/dL (70-105) H 01/02/22 11:07 Lactic Acid 1.60 mmol/L (0.7-2.0) 12/29/21 13:08 Calcium 8.4 mg/dL (8.4-10.2) 01/02/22 07:25 Total Bilirubin 0.60 mg/dL (0.1-1.2) 12/29/21 04:47 AST 38 units/L (5-40) 12/29/21 04:47 ALT 31 units/L (7-56) 12/29/21 04:47 Alkaline Phosphatase 237 units/L (35-129) H 12/29/21 04:47 Total Protein 6.0 g/dL (6.3-8.2) L 12/29/21 04:47 Albumin 2.3 g/dL (3.9-5) L 12/29/21 04:47 Albumin/Globulin Ratio 0.6 % 12/29/21 04:47 Urine Color Yellow (Yellow) 12/28/21 19:00 Urine Turbidity Clear (Clear) 12/28/21 19:00 Urine pH 6.0 (5.0-7.0) 12/28/21 19:00 Ur Specific [place] 1.043 (1.003-1.030) H 12/28/21 19:00 Urine Protein 30 mg/dl mg/dL (Negative) 12/28/21 19:00 Urine Glucose (UA) >=500 mg/dL (Negative) 12/28/21 19:00 Urine Ketones Neg mg/dL (Negative) 12/28/21 19:00 Urine Blood Neg (Negative) 12/28/21 19:00 Urine Nitrite Neg (Negative) 12/28/21 19:00 Urine Bilirubin Neg (Negative) 12/28/21 19:00 Urine Urobilinogen 4.0 mg/dL (<2.0) 12/28/21 19:00 Ur Leukocyte Esterase Neg (Negative) 12/28/21 19:00 Urine WBC (Auto) 6.0 /HPF (0.0-6.0) 12/28/21 19:00 Urine RBC (Auto) 14.0 /HPF (0.0-6.0) 12/28/21 19:00 U Epithel Cells (Auto) 2.0 /HPF (0-13.0) 12/28/21 19:00 Urine Bacteria (Auto) 1+ /HPF (Negative) 12/28/21 19:00 Urine Mucus Few /HPF 12/28/21 19:00 Urine Yeast (Budding) 1+ /HPF 12/28/21 19:00 Nasal Screen MRSA (PCR) Negative (Negative) 12/29/21 14:30 Salicylates < 0.3 mg/dL (2.8-20.0) L 12/28/21 12:49 Urine Opiates Screen Presumptive negative 12/28/21 19:00 Urine Methadone Screen Presumptive negative 12/28/21 19:00 Acetaminophen 5.0 ug/mL (10.0-30.0) L 12/28/21 12:49 Ur Barbiturates Screen Presumptive negative 12/28/21 19:00 Ur Phencyclidine Scrn Presumptive negative 12/28/21 19:00 Ur Amphetamines Screen Presumptive negative 12/28/21 19:00 U Benzodiazepines Scrn Presumptive negative 12/28/21 19:00 Urine Cocaine Screen Presumptive negative 12/28/21 19:00 U Marijuana (THC) Screen Presumptive positive 12/28/21 19:00 Drugs of Abuse Note Disclamer 12/28/21 19:00 Plasma/Serum Alcohol < 0.01 % (0-0.07) 12/28/21 12:49 Blood Type A POSITIVE 12/28/21 15:20 Antibody Screen Negative 12/28/21 15:20 Microbiology: Microbiology 12/28/21 14:56 Peripheral/Venous Blood Culture - Preliminary NO GROWTH AFTER 4 DAYS 12/28/21 14:56 Peripheral/Venous Blood Culture - Preliminary NO GROWTH AFTER 4 DAYS Enriquez/IV: Voiding Method External Female Catheter Active Medications - Current Medications Current Medications: Generic Name Dose Route Start Last Admin Trade Name Freq PRN Reason Stop Dose Admin Acetaminophen 650 mg 12/28/21 20:33 Acetaminophen 325 Mg Tab PO Q8H PRN Pain, Mild (1-3) Al Hydrox/Mg Hydrox/Simethicone 30 ml 12/30/21 17:30 Alum-Mag Hydroxide-Simethicone [id number]/5ml Oral Liqd 30 Ml PO Q4H PRN Indigestion Albuterol 2.5 mg 12/28/21 20:31 Albuterol 2.5 Mg/3 Ml Nebu IH Q4HRT PRN Shortness Of Breath Amlodipine Besylate 5 mg 12/30/21 10:00 01/02/22 09:32 Amlodipine 5 Mg Tab PO 5 mg QDAY BAUTISTA Administration Aspirin 325 mg 12/30/21 10:00 01/02/22 09:33 Aspirin 325 Mg Tab PO 325 mg QDAY BAUTISTA Administration Atorvastatin Calcium 80 mg 12/29/21 22:00 01/01/22 22:01 Atorvastatin 40 Mg Tab PO 80 mg QHS BAUTISTA Administration Clopidogrel Bisulfate 75 mg 12/30/21 10:00 01/02/22 09:32 Clopidogrel 75 Mg Tab PO 75 mg QDAY BAUTISTA Administration Dextrose 0 ml 12/28/21 20:32 Dextrose 10% *Hypoglycemia IV DIRECT PRN Hypoglycemia Protocol Duloxetine HCl 60 mg 12/30/21 10:00 01/02/22 09:33 Duloxetine 30 Mg Cap PO 60 mg QDAY BAUTISTA Administration Famotidine 10 mg 12/29/21 22:00 01/02/22 09:33 Famotidine 10 Mg Tab PO 10 mg BID BAUTISTA Administration Gabapentin 300 mg 12/29/21 22:00 01/02/22 09:32 Gabapentin 300 Mg Cap PO 300 mg BID BAUTISTA Administration Hydromorphone HCl 1 mg 01/02/22 09:30 01/02/22 14:49 Hydromorphone 1 Mg/1 Ml Inj IV 1 mg Q3H PRN Administration Pain, Moderate (4-6) Meropenem 500 mg in 50 mls @ 50 mls/hr 12/29/21 22:00 01/02/22 11:05 Merrem/Ns 500 Mg/50 Ml IV 50 mls/hr Q6H BAUTISTA Administration Vancomycin HCl 1 gm in 250 mls @ 166.667 mls/hr 01/01/22 06:00 01/02/22 06:32 Vancomycin/Ns 1 Gm/250 Ml IV 166.667 mls/hr Q12H BAUTISTA Administration Insulin Glargine 25 units 12/30/21 22:00 01/01/22 22:01 Insulin Glargine 100 Units/Ml SUB-Q 25 units QHS BAUTISTA Administration Insulin Human Lispro 0 unit 12/29/21 11:30 01/02/22 12:12 Insulin Lispro 100 Unit/Ml SUB-Q 4 unit ACHS BAUTISTA Administration Protocol Lisinopril 10 mg 12/30/21 10:00 01/02/22 09:33 Lisinopril 10 Mg Tab PO 10 mg QDAY BAUTISTA Administration Nicotine 14 mg 12/29/21 17:00 01/02/22 09:34 Nicotine 14 Mg/24 Hr Patch TD 14 mg QDAY BAUTISTA Administration Ondansetron HCl 4 mg 12/28/21 20:31 12/31/21 09:47 Ondansetron 4 Mg/2 Ml Inj IV 4 mg Q8H PRN Administration Nausea And Vomiting Oxycodone/Acetaminophen 1 tab 01/02/22 11:00 01/02/22 11:01 Oxycodone /Acetaminophen 5-325mg Tab PO 1 tab Q6HR BAUTISTA Administration Sodium Chloride 10 ml 12/28/21 22:00 01/02/22 11:02 Sodium Chloride 0.9% 10 Ml Flush Syringe IV 10 ml BID BAUTISTA Administration Sodium Chloride 10 ml 12/28/21 20:31 Sodium Chloride 0.9% 10 Ml Flush Syringe IV PRN PRN LINE FLUSH Tramadol HCl 50 mg 12/28/21 14:22 01/02/22 05:07 Tramadol 50 Mg Tab PO 50 mg Q6H PRN Administration Pain , Severe (7-10)
--- NOTE | 2022-01-02 18:26 | Progress Note ---
Assessment and Plan Cultures: Blood culture 12/28/2021 no growth so far Wound culture 12/28/2021 no growth so far A/P: 66-year-old female past medical history CVA on antiplatelet therapy, hypertension, CHF, chronic debility now with: #Acute sepsis: Present with leukocytosis and tachycardia on admission. Secondary to below. #Right leg necrotizing fasciitis: 2X debridements in the OR. Cultures remain negative. #Hyperglycemia: Check glycemic control for best wound healing Recs: -Continue meropenem for now -Added vancomycin -Follow-up cultures -If further debridement performed, would obtain new cultures. -If no further surgery performed, culture negative okay to discharge on doxycycline 100 mg every 12 hours and Augmentin 875/125 mg every 12 hours to complete 10 days. Thank you for the consult, we will sign off. Please call with questions or if condition worsens. Yen Lawrence MD [facility] O: [phone] F: [phone] Subjective Date of service: 01/02/22 Principal diagnosis: Cellulitis (Nec Faciitis); DM II; Morbid obesity ; Tobacco abuse; Acidosis Interval history: Afebrile, white count 13.4 which is improving. All cultures remain negative. Objective - Exam Narrative Exam: Physical Exam: Constitutional: Alert, cooperative. No acute distress Head, Ears, Nose: Normocephalic, atraumatic. External ears, nose normal Eyes: Conjunctivae/corneas clear. No icterus. No ptosis. Neck: Supple, no meningeal signs Oral: dentition fair, no thrush Cardiovascular: S1, S2 normal. Respiratory: Good air entry, clear to auscultation bilaterally GI: Soft, non-tender; bowel sounds normal. No peritoneal signs. Musculoskeletal: Right leg dressed Skin: No rash or abscess Hem/Lymphatic: No palpable cervical or supraclavicular nodes. No lymphangitis Psych: Mood ok. Affect normal Neurological: Awake, alert, oriented. No gross abnormality - Constitutional Vitals: Vital Signs Temp Pulse Resp BP Pulse Ox 97.9 F 78 18 145/68 99 01/02/22 17:43 01/02/22 17:43 01/02/22 17:43 01/02/22 17:43 01/02/22 17:43 Temperature -Last 24 Hours Temperature 97.9 F Temperature 98.2 F Temperature 98.6 F Temperature 98.3 F - Labs CBC & Chem 7: 01/02/22 07:25 01/02/22 07:25 Labs: Abnormal lab results 01/01/22 01/02/22 01/02/22 Range/Units 21:36 07:25 07:25 WBC 13.4 H (4.5-11.0) K/mm3 Seg Neuts % (Manual) 74.0 H (40.0-70.0) % Lymphocytes % (Manual) 13.0 L (13.4-35.0) % Monocytes % (Manual) 10.0 H (0.0-7.3) % Seg Neutrophils # Man 9.9 H (1.8-7.7) K/mm3 Monocytes # (Manual) 1.3 H (0.0-0.8) K/mm3 Carbon Dioxide 32 H (22-30) mmol/L Glucose 190 H (65-100) mg/dL POC Glucose 278 H (70-105) mg/dL 01/02/22 01/02/22 01/02/22 Range/Units 07:47 11:07 15:30 WBC (4.5-11.0) K/mm3 Seg Neuts % (Manual) (40.0-70.0) % Lymphocytes % (Manual) (13.4-35.0) % Monocytes % (Manual) (0.0-7.3) % Seg Neutrophils # Man (1.8-7.7) K/mm3 Monocytes # (Manual) (0.0-0.8) K/mm3 Carbon Dioxide (22-30) mmol/L Glucose (65-100) mg/dL POC Glucose 189 H 256 H 224 H (70-105) mg/dL
[2022-01-02] MEDS: AMOXICILLIN/K CLAV 875/125MG TAB PO SCH (22:58)
[2022-01-02] MEDS: DOXYCYCLINE 100 MG CAP PO SCH (22:58)
[2022-01-02] MEDS: INSULIN GLARGINE 100 UNITS/ML SUB-Q SCH (22:59)
[2022-01-03] MEDS: oxyCODONE /ACETAMINOPHEN 5-325MG TAB PO SCH ×5 (00:53→23:40)
[2022-01-03 05:27] LABS: Hematocrit 36.4 % (30.3-42.9); Hemoglobin 11.5 gm/dl (10.1-14.3); Mean Corpuscular HGB Conc 32 % (30-34); Mean Corpuscular Volume 94 fl (79-97); Platelet Count 463 K/mm3 (140-440); Red Blood Count 3.85 M/mm3 (3.65-5.03); Red Cell Distribution Width 14.4 % (13.2-15.2)
[2022-01-03 05:42] LABS: Blood Urea Nitrogen 12 mg/dL (7-17); Calcium 8.5 mg/dL (8.4-10.2); Hemolysis Index 0
[2022-01-03 05:49] LABS: BUN/Creatinine Ratio 17
[2022-01-03 06:17] LABS: Basophils % (Manual) 0 % (0.0-1.8); Eosinophils % (Manual) 0 % (0.0-4.3); RBC Morphology Normal; Total Cells Counted 100
[2022-01-03 06:18] LABS: Platelet Estimate Consistent w Auto
[2022-01-03] MEDS: INSULIN LISPRO 100 UNIT/ML SUB-Q SCH ×4 (08:56→22:14)
[2022-01-03] MEDS: GABAPENTIN 300 MG CAP PO SCH ×2 (10:59→22:13)
[2022-01-03] MEDS: CLOPIDOGREL 75 MG TAB PO SCH (10:59)
[2022-01-03] MEDS: ASPIRIN 325 MG TAB PO SCH (10:59)
[2022-01-03] MEDS: DOXYCYCLINE 100 MG CAP PO SCH ×2 (10:59→22:13)
[2022-01-03] MEDS: AMOXICILLIN/K CLAV 875/125MG TAB PO SCH ×2 (10:59→22:13)
[2022-01-03] MEDS: amLODIPine 5 MG TAB PO SCH (11:00)
[2022-01-03] MEDS: LISINOPRIL 10 MG TAB PO SCH (11:01)
[2022-01-03] MEDS: DULoxetine 30 MG CAP PO SCH (11:01)
[2022-01-03] MEDS: FAMOTIDINE 10 MG TAB PO SCH ×2 (11:02→22:13)
[2022-01-03] MEDS: NICOTINE 14 MG/24 HR PATCH TD SCH (11:02)
--- NOTE | 2022-01-03 12:42 | Progress Note ---
Assessment and Plan Cellulitis (R. Lower ext Necrotizing fascitis) DM II Morbid obesity Tobacco use disorder/Nicotine dependence Lactic acidosis Leukocytosis Severe anal condylomata - no new issues today, continue care as below; - prn supplemental oxygen to keep O2 sats > 90% - prn bronchodilators ([place]) with pulm hygiene per RT - avoid nephrotoxins, renally dose all medications - continue mobility protocols to prevent pressure ulcers - PT/OT as tolerated - Wound care per RN/WCT under surgeons direction - continue accuchecks with glycemic control per SSI for target blood glucose < 180 mg/dL - tobacco abstinence strongly counseled at the bedside - home oxygen evaluation at discharge - GI & VTE prophylaxis - Flu & pneumovax per protocol - continue other care per attending / other consultants - prn analgesia per pain score - discharge planning ongoing concurrently ... re-evaluate in am & prn Subjective Date of service: 01/03/22 Principal diagnosis: Cellulitis (Nec Faciitis); DM II; Morbid obesity ; Tobacco abuse; Acidosis Interval history: Patient is seen today for: Cellulitis (Nec Faciitis); DM II; Morbid obesity ; Tobacco use disorder; Lactic acidosis; Leukocytosis; Severe anal condylomata Seen and examined at bedside; 24hour events reviewed; nursing and respiratory care staff consulted; no adverse overnight events reported to me; resting in bed; denies acute chest pains or palpitations; NO N/V/F/C Objective Vital Signs - 12hr 01/03/22 01/03/22 01/03/22 00:53 01:53 03:27 Temperature 97.8 F Pulse Rate 80 Respiratory 18 18 18 Rate Blood Pressure 131/68 O2 Sat by Pulse 100 Oximetry 01/03/22 01/03/22 01/03/22 06:26 07:26 08:15 Temperature Pulse Rate Respiratory 17 18 Rate Blood Pressure O2 Sat by Pulse 97 Oximetry 01/03/22 01/03/22 01/03/22 10:50 11:00 11:01 Temperature 98.2 F Pulse Rate 82 86 86 Respiratory 16 Rate Blood Pressure 176/75 176/75 176/75 O2 Sat by Pulse 96 Oximetry Constitutional: no acute distress, asleep, other (elderly obese female with mildly increased respiratory effort at rest) Eyes: non-icteric ENT: oropharynx moist Neck: supple, no lymphadenopathy Effort: mildly labored Ascultation: Bilateral: clear, diminished breath sounds Percussion: Bilateral: not dull Cardiovascular: regular rate and rhythm Gastrointestinal: normoactive bowel sounds, soft, non-tender Integumentary: normal Extremities: edema, other (Cellulitis, right thigh.) Neurologic: non-focal exam, pupils equal and round, CN II-XII normal Psychiatric: other (flat affect) CBC and BMP: 01/03/22 04:56 01/03/22 04:56 ABG, PT/INR, D-dimer: ABG ABG pH 7.413 pH Units (7.350-7.450) 01/01/22 10:48 ABG pCO2 56.6 mm Hg 01/01/22 10:48 ABG pO2 54.5 mm Hg (80.0-90.0) L 01/01/22 10:48 ABG O2 Saturation 89.0 % (95.0-99.0) L 01/01/22 10:48 Abnormal lab findings: Abnormal Labs 12/28/21 12/28/21 12/28/21 12:49 12:49 12:49 WBC 34.9 H Hgb 14.7 H Hct 47.7 H MCH MCHC Plt Count Seg Neuts % (Manual) 90.0 H Lymphocytes % (Manual) 0 L Monocytes % (Manual) Seg Neutrophils # Man 31.4 H Lymphocytes # (Manual) 0.0 L Monocytes # (Manual) 1.4 H ABG pO2 ABG HCO3 ABG O2 Saturation ABG Base Excess ABG Hemoglobin Oxyhemoglobin Potassium Carbon Dioxide Glucose 362 H POC Glucose Lactic Acid Calcium Alkaline Phosphatase 269 H Total Protein Albumin 3.1 L Ur Specific [place] Salicylates < 0.3 L Acetaminophen 12/28/21 12/28/21 12/28/21 12:49 19:00 19:04 WBC Hgb Hct MCH MCHC Plt Count Seg Neuts % (Manual) Lymphocytes % (Manual) Monocytes % (Manual) Seg Neutrophils # Man Lymphocytes # (Manual) Monocytes # (Manual) ABG pO2 ABG HCO3 ABG O2 Saturation ABG Base Excess ABG Hemoglobin Oxyhemoglobin Potassium Carbon Dioxide Glucose POC Glucose Lactic Acid 3.30 H* Calcium Alkaline Phosphatase Total Protein Albumin Ur Specific [place] 1.043 H Salicylates Acetaminophen 5.0 L 12/28/21 12/28/21 12/28/21 20:41 20:56 20:56 WBC Hgb Hct MCH MCHC Plt Count Seg Neuts % (Manual) Lymphocytes % (Manual) Monocytes % (Manual) Seg Neutrophils # Man Lymphocytes # (Manual) Monocytes # (Manual) ABG pO2 ABG HCO3 ABG O2 Saturation ABG Base Excess ABG Hemoglobin Oxyhemoglobin Potassium Carbon Dioxide 20 L Glucose 419 H POC Glucose 399 H Lactic Acid 2.80 H* Calcium 8.1 L Alkaline Phosphatase Total Protein Albumin Ur Specific [place] Salicylates Acetaminophen 12/28/21 12/29/21 12/29/21 22:00 00:16 04:47 WBC 30.7 H Hgb Hct MCH 33 H MCHC 35 H Plt Count Seg Neuts % (Manual) 94.0 H Lymphocytes % (Manual) 2.0 L Monocytes % (Manual) Seg Neutrophils # Man 28.9 H Lymphocytes # (Manual) 0.6 L Monocytes # (Manual) ABG pO2 ABG HCO3 ABG O2 Saturation ABG Base Excess ABG Hemoglobin Oxyhemoglobin Potassium Carbon Dioxide Glucose POC Glucose 358 H 257 H Lactic Acid Calcium Alkaline Phosphatase Total Protein Albumin Ur Specific [place] Salicylates Acetaminophen 12/29/21 12/29/21 12/29/21 04:47 11:25 17:14 WBC Hgb Hct MCH MCHC Plt Count Seg Neuts % (Manual) Lymphocytes % (Manual) Monocytes % (Manual) Seg Neutrophils # Man Lymphocytes # (Manual) Monocytes # (Manual) ABG pO2 ABG HCO3 ABG O2 Saturation ABG Base Excess ABG Hemoglobin Oxyhemoglobin Potassium Carbon Dioxide Glucose 280 H POC Glucose 321 H 136 H Lactic Acid Calcium 8.0 L Alkaline Phosphatase 237 H Total Protein 6.0 L Albumin 2.3 L Ur Specific [place] Salicylates Acetaminophen 12/29/21 12/30/21 12/30/21 20:59 04:42 04:42 WBC 19.9 H Hgb Hct MCH MCHC Plt Count Seg Neuts % (Manual) Lymphocytes % (Manual) Monocytes % (Manual) Seg Neutrophils # Man Lymphocytes # (Manual) Monocytes # (Manual) ABG pO2 ABG HCO3 ABG O2 Saturation ABG Base Excess ABG Hemoglobin Oxyhemoglobin Potassium 3.2 L Carbon Dioxide Glucose 172 H POC Glucose 150 H Lactic Acid Calcium 8.3 L Alkaline Phosphatase Total Protein Albumin Ur Specific [place] Salicylates Acetaminophen 12/30/21 12/30/21 12/30/21 08:14 11:23 16:25 WBC Hgb Hct MCH MCHC Plt Count Seg Neuts % (Manual) Lymphocytes % (Manual) Monocytes % (Manual) Seg Neutrophils # Man Lymphocytes # (Manual) Monocytes # (Manual) ABG pO2 ABG HCO3 ABG O2 Saturation ABG Base Excess ABG Hemoglobin Oxyhemoglobin Potassium Carbon Dioxide Glucose POC Glucose 194 H 245 H 209 H Lactic Acid Calcium Alkaline Phosphatase Total Protein Albumin Ur Specific [place] Salicylates Acetaminophen 12/30/21 12/31/21 12/31/21 21:27 07:31 11:46 WBC Hgb Hct MCH MCHC Plt Count Seg Neuts % (Manual) Lymphocytes % (Manual) Monocytes % (Manual) Seg Neutrophils # Man Lymphocytes # (Manual) Monocytes # (Manual) ABG pO2 ABG HCO3 ABG O2 Saturation ABG Base Excess ABG Hemoglobin Oxyhemoglobin Potassium Carbon Dioxide Glucose POC Glucose 169 H 164 H 172 H Lactic Acid Calcium Alkaline Phosphatase Total Protein Albumin Ur Specific [place] Salicylates Acetaminophen 12/31/21 12/31/21 01/01/22 15:26 21:44 07:38 WBC Hgb Hct MCH MCHC Plt Count Seg Neuts % (Manual) Lymphocytes % (Manual) Monocytes % (Manual) Seg Neutrophils # Man Lymphocytes # (Manual) Monocytes # (Manual) ABG pO2 ABG HCO3 ABG O2 Saturation ABG Base Excess ABG Hemoglobin Oxyhemoglobin Potassium Carbon Dioxide Glucose POC Glucose 154 H 272 H 143 H Lactic Acid Calcium Alkaline Phosphatase Total Protein Albumin Ur Specific [place] Salicylates Acetaminophen 01/01/22 01/01/22 01/01/22 10:48 12:02 16:51 WBC Hgb Hct MCH MCHC Plt Count Seg Neuts % (Manual) Lymphocytes % (Manual) Monocytes % (Manual) Seg Neutrophils # Man Lymphocytes # (Manual) Monocytes # (Manual) ABG pO2 54.5 L ABG HCO3 35.3 H ABG O2 Saturation 89.0 L ABG Base Excess 9.1 H ABG Hemoglobin 11.5 L Oxyhemoglobin 87.4 L Potassium Carbon Dioxide Glucose POC Glucose 256 H 67 L Lactic Acid Calcium Alkaline Phosphatase Total Protein Albumin Ur Specific [place] Salicylates Acetaminophen 01/01/22 01/01/22 01/02/22 17:47 21:36 07:25 WBC 13.4 H Hgb Hct MCH MCHC Plt Count Seg Neuts % (Manual) 74.0 H Lymphocytes % (Manual) 13.0 L Monocytes % (Manual) 10.0 H Seg Neutrophils # Man 9.9 H Lymphocytes # (Manual) Monocytes # (Manual) 1.3 H ABG pO2 ABG HCO3 ABG O2 Saturation ABG Base Excess ABG Hemoglobin Oxyhemoglobin Potassium Carbon Dioxide Glucose POC Glucose 148 H 278 H Lactic Acid Calcium Alkaline Phosphatase Total Protein Albumin Ur Specific [place] Salicylates Acetaminophen 01/02/22 01/02/22 01/02/22 07:25 07:47 11:07 WBC Hgb Hct MCH MCHC Plt Count Seg Neuts % (Manual) Lymphocytes % (Manual) Monocytes % (Manual) Seg Neutrophils # Man Lymphocytes # (Manual) Monocytes # (Manual) ABG pO2 ABG HCO3 ABG O2 Saturation ABG Base Excess ABG Hemoglobin Oxyhemoglobin Potassium Carbon Dioxide 32 H Glucose 190 H POC Glucose 189 H 256 H Lactic Acid Calcium Alkaline Phosphatase Total Protein Albumin Ur Specific [place] Salicylates Acetaminophen 01/02/22 01/02/22 01/03/22 15:30 21:16 04:56 WBC 12.2 H Hgb Hct MCH MCHC Plt Count 463 H Seg Neuts % (Manual) 72.0 H Lymphocytes % (Manual) Monocytes % (Manual) Seg Neutrophils # Man 8.8 H Lymphocytes # (Manual) Monocytes # (Manual) ABG pO2 ABG HCO3 ABG O2 Saturation ABG Base Excess ABG Hemoglobin Oxyhemoglobin Potassium Carbon Dioxide Glucose POC Glucose 224 H 219 H Lactic Acid Calcium Alkaline Phosphatase Total Protein Albumin Ur Specific [place] Salicylates Acetaminophen 01/03/22 01/03/22 01/03/22 04:56 07:13 11:28 WBC Hgb Hct MCH MCHC Plt Count Seg Neuts % (Manual) Lymphocytes % (Manual) Monocytes % (Manual) Seg Neutrophils # Man Lymphocytes # (Manual) Monocytes # (Manual) ABG pO2 ABG HCO3 ABG O2 Saturation ABG Base Excess ABG Hemoglobin Oxyhemoglobin Potassium Carbon Dioxide 33 H Glucose 221 H POC Glucose 269 H 215 H Lactic Acid Calcium Alkaline Phosphatase Total Protein Albumin Ur Specific [place] Salicylates Acetaminophen Allied health notes reviewed: nursing
--- NOTE | 2022-01-03 13:01 | Progress Note ---
Assessment and Plan Cultures: Blood culture 12/28/2021 no growth so far 12/28/2021 surgical culture: Streptococcus anginosus A/P: 66-year-old female past medical history CVA on antiplatelet therapy, hypertension, CHF, chronic debility now with: #Sepsis secondary to right thigh necrotizing fasciitis: 2X debridements in the OR. Cultures remain negative. #DM: Optimize glycemic control for best wound healing. #PCN allergy: tolerating Augmentin Recs: -tolerating PO abx, continue PO doxycycline 100 mg every 12 hours and Augmentin 875/125 mg every 12 hours to complete 10 days -wound care -optimize glycemic control Will sign off. Please call with questions. Genny Ornelas MD, FACP, [facility] ([facility] O: [phone] F: [phone] C: [phone] Subjective Date of service: 01/03/22 Principal diagnosis: Cellulitis (Nec Faciitis); DM II; Morbid obesity ; Tobacco abuse; Acidosis Interval history: Patient denies any complaints. Afebrile. Pain in right lower extremity is stable. Tolerating oral antibiotics. Objective - Exam Narrative Exam: Physical Exam: Constitutional: Alert, cooperative. No acute distress Head, Ears, Nose: Normocephalic, atraumatic. External ears, nose normal Eyes: Conjunctivae/corneas clear. No icterus. No ptosis. Neck: Supple, no meningeal signs Cardiovascular: S1, S2 + Respiratory: Good air entry, clear to auscultation bilaterally GI: Soft, non-tender; bowel sounds normal. No peritoneal signs Musculoskeletal: Right thigh with dressing present, no surrounding induration Skin: No rash or abscess Hem/Lymphatic: No palpable cervical or supraclavicular nodes. No lymphangitis Psych: Mood ok. Affect normal Neurological: Awake, alert, oriented. No gross abnormality - Constitutional Vitals: Vital Signs Temp Pulse Resp BP Pulse Ox 98.2 F 86 16 176/75 96 01/03/22 10:50 01/03/22 11:01 01/03/22 10:50 01/03/22 11:01 01/03/22 10:50 Temperature -Last 24 Hours Temperature 98.2 F Temperature 97.8 F Temperature 97.6 F Temperature 97.9 F - Labs CBC & Chem 7: 01/03/22 04:56 01/03/22 04:56 Labs: Abnormal lab results 01/02/22 01/02/22 01/03/22 Range/Units 15:30 21:16 04:56 WBC 12.2 H (4.5-11.0) K/mm3 Plt Count 463 H (140-440) K/mm3 Seg Neuts % (Manual) 72.0 H (40.0-70.0) % Seg Neutrophils # Man 8.8 H (1.8-7.7) K/mm3 Carbon Dioxide (22-30) mmol/L Glucose (65-100) mg/dL POC Glucose 224 H 219 H (70-105) mg/dL 01/03/22 01/03/22 01/03/22 Range/Units 04:56 07:13 11:28 WBC (4.5-11.0) K/mm3 Plt Count (140-440) K/mm3 Seg Neuts % (Manual) (40.0-70.0) % Seg Neutrophils # Man (1.8-7.7) K/mm3 Carbon Dioxide 33 H (22-30) mmol/L Glucose 221 H (65-100) mg/dL POC Glucose 269 H 215 H (70-105) mg/dL
--- NOTE | 2022-01-03 13:54 | Consultation ---
History of Present Illness - Reason for Consult Consult date: 01/03/22 Reason for consult: 1013 - Chief Complaint Chief complaint: My right leg hurts - History of Present Psychiatric Illness The patient is a 66 year old female with history of depression who was consulted for mental health evaluation. The patient was seen today with a sitter in the room. The patient is calm, alert and oriented x2. She reports doing well but st ates she is depressed " because of my health issues and I don't have anybody to sit with me when I go home." The patient denies being anxious. She denies any current suicidal/homicidal ideation however admits to having visual hallucinations. PAST PSYCHIATRIC HISTORY Diagnoses: Depression Suicide attempts or Self-harm behavior:Yes Prior psychiatric hospitalizations: Denies Substance Abuse history: Marijuana Previous psychiatric medications tried: Currently on Effexor Outpatient treatment: Yes PAST MEDICAL HISTORY: Family Psychiatric History: Not available SOCIAL HISTORY Marital Status: Single Living Arrangements: Lives with daughter Employment Status: Unemployed Access to guns/weapons: None reported Education:6th grade History of Abuse: None reported Legal History: None reported REVIEW OF SYSTEMS Constitutional: Negative for weight loss ENT: Negative for stridor Respiratory: Negative for cough or hemoptysis All other systems reviewed and are negative MENTAL STATUS EXAMINATION General Appearance and Behavior: Age appropriate, good hygiene, wearing appropriate clothes, good eye contact, cooperative polite with questioning. Cooperation: Participating/engaged Psychomotor Behavior: unremarkable and within normal limits Mood:calm Affect and affective range: congruent with mood Thought Process:Goal oriented Thought Content: Reality oriented Speech: Normal volume, Regular rate and rhythm Intellectual Functioning: Average Suicidal Ideation: Denies Homicidal Ideation: Denies Hallucinations: Visual Impulse Control: Normal Insight and Judgment:Limited insight and good judgment Memory: Normal Attention: Distractible Orientation: Alert, oriented x4 Assessment and Plan (1) Major depressive disorder Current Visit: Yes Status: Acute RECOMMENDATIONS case management continue home meds. I agree with the current treatment plan: Gabapentin 300mg BID and Cymbalta 60mg daily. Risks, benefits and alternatives of medications discussed with the patient, questions answered and consent obtained from patient. PSYCHOTHERAPY: Supportive psychotherapy provided MEDICAL: Per primary team DELIRIUM PRECAUTIONS: Please re-orient patient frequently, keep lights on during the day, and minimize benzodiazepines and opiates as these medications could worsen patient's confusion. EMPLOYMENT OFFICE CLERK: Per medical team DISPOSITION: Do not recommend acute inpatient psychiatric hospitalization at this time. The bread baker will provide patient with psychiatric outpatient resources. FOLLOW-UP: Will sign off. Thank you for the consult. Please contact with any questions and/or concerns. Medications and Allergies Allergies Allergy/AdvReac Type Severity Reaction Status Date / Time Penicillins Allergy Swelling Verified 04/19/21 18:25 Home Medications Medication Instructions Recorded Confirmed Last Taken Type Nicotine [Habitrol] 14 mg TD QDAY #30 patch 07/23/19 12/29/21 Unknown Rx Aspirin 325 mg PO QDAY #90 tablet 04/21/21 12/29/21 Unknown Rx AtorvaSTATin [Lipitor] 80 mg PO QHS #90 tablet 04/21/21 12/29/21 Unknown Rx Baclofen [Lioresal] 20 mg PO Q8H PRN #20 tablet 04/21/21 12/29/21 Unknown Rx Clopidogrel [Plavix] 75 mg PO QDAY #90 tablet 04/21/21 12/29/21 Unknown Rx Famotidine [Pepcid] 20 mg PO BID #60 tablet 04/21/21 12/29/21 Unknown Rx Gabapentin 600 mg PO Q8HR #90 cap 04/21/21 12/29/21 Unknown Rx Insulin NPH/Regular [NovoLIN 70/30] 15 unit SUB-Q BIDDIAB 30 Days 04/21/21 12/29/21 Unknown Rx Lispro Insulin [HumaLOG] 0 unit SUB-Q ACHS 30 Days 04/21/21 12/29/21 Unknown Rx amLODIPine 5 mg PO DAILY #30 tab 04/22/21 12/29/21 Unknown Rx Amoxicillin/K Clav Tab [Augmentin 1 each PO Q12HR #18 tablet 01/02/22 Unknown Rx 875MG TAB] DOXYCYCLINE Hyclate [Vibramycin 100 mg PO BID #18 tab 01/02/22 Unknown Rx CAP] DULoxetine [Cymbalta] 60 mg PO QDAY #30 capsule 01/02/22 Unknown Rx lisinopriL [Zestril TAB] 10 mg PO QDAY #30 tablet 01/02/22 Unknown Rx oxyCODONE /ACETAMINOPHEN [Percocet 1 tab PO Q6HR PRN #28 tablet 01/02/22 Unknown Rx 5/325] Sodium Hypochlorite [Dakin's Full 15 applic IR BID #3 bottle 01/03/22 Unknown Rx Strength] Active Meds: Active Medications Acetaminophen (Acetaminophen 325 Mg Tab) 650 mg PO Q8H PRN PRN Reason: Pain, Mild (1-3) Al Hydrox/Mg Hydrox/Simethicone (Alum-Mag Hydroxide-Simethicone 702-503-93pg/5ml Oral Liqd 30 Ml) 30 ml PO Q4H PRN PRN Reason: Indigestion Albuterol (Albuterol 2.5 Mg/3 Ml Nebu) 2.5 mg IH Q4HRT PRN PRN Reason: Shortness Of Breath Amlodipine Besylate (Amlodipine 5 Mg Tab) 5 mg PO QDAY [facility] Last Admin: 01/03/22 11:00 Dose: 5 mg Amoxicillin/Clavulanate Potassium (Amoxicillin/K Clav 875/125mg Tab) 1 each PO Q12HR [facility]; Protocol Last Admin: 01/03/22 10:59 Dose: 1 each Aspirin (Aspirin 325 Mg Tab) 325 mg PO QDAY [facility] Last Admin: 01/03/22 10:59 Dose: 325 mg Atorvastatin Calcium (Atorvastatin 40 Mg Tab) 80 mg PO QHS [facility] Last Admin: 01/02/22 22:58 Dose: 80 mg Clopidogrel Bisulfate (Clopidogrel 75 Mg Tab) 75 mg PO QDAY [facility] Last Admin: 01/03/22 10:59 Dose: 75 mg Dextrose (Dextrose 10% *Hypoglycemia) 0 ml IV DIRECT PRN; Protocol PRN Reason: Hypoglycemia Doxycycline Hyclate (Doxycycline 100 Mg Cap) 100 mg PO BID [facility]; Protocol Last Admin: 01/03/22 10:59 Dose: 100 mg Duloxetine HCl (Duloxetine 30 Mg Cap) 60 mg PO QDAY [facility] Last Admin: 01/03/22 11:01 Dose: 60 mg Famotidine (Famotidine 10 Mg Tab) 10 mg PO BID [facility] Last Admin: 01/03/22 11:02 Dose: 10 mg Gabapentin (Gabapentin 300 Mg Cap) 300 mg PO BID [facility] Last Admin: 01/03/22 10:59 Dose: 300 mg Hydromorphone HCl (Hydromorphone 1 Mg/1 Ml Inj) 1 mg IV Q3H PRN PRN Reason: Pain, Moderate (4-6) Last Admin: 01/02/22 23:23 Dose: 1 mg Insulin Glargine (Insulin Glargine 100 Units/Ml) 25 units SUB-Q QHS [facility] Last Admin: 02/23/22 22:59 Dose: 25 units Insulin Human Lispro (Insulin Lispro 100 Unit/Ml) 0 unit SUB-Q ACHS [facility]; Protocol Last Admin: 01/03/22 12:19 Dose: 4 unit Lisinopril (Lisinopril 10 Mg Tab) 10 mg PO QDAY [facility] Last Admin: 01/03/22 11:01 Dose: 10 mg Nicotine (Nicotine 14 Mg/24 Hr Patch) 14 mg TD QDAY [facility] Last Admin: 01/03/22 11:02 Dose: 14 mg Ondansetron HCl (Ondansetron 4 Mg/2 Ml Inj) 4 mg IV Q8H PRN PRN Reason: Nausea And Vomiting Last Admin: 12/31/21 09:47 Dose: 4 mg Oxycodone/Acetaminophen (Oxycodone /Acetaminophen 5-325mg Tab) 1 tab PO Q6HR [facility] Last Admin: 01/03/22 12:18 Dose: 1 tab Sodium Chloride (Sodium Chloride 0.9% 10 Ml Flush Syringe) 10 ml IV BID [facility] Last Admin: 01/03/22 11:02 Dose: 10 ml Sodium Chloride (Sodium Chloride 0.9% 10 Ml Flush Syringe) 10 ml IV PRN PRN PRN Reason: LINE FLUSH Tramadol HCl (Tramadol 50 Mg Tab) 50 mg PO Q6H PRN PRN Reason: Pain , Severe (7-10) Last Admin: 01/02/22 05:07 Dose: 50 mg Mental Status Exam - Vital signs Last Vital Signs Temp 98.2 F 01/03/22 10:50 Pulse 86 01/03/22 11:01 Resp 16 01/03/22 10:50 BP 176/75 01/03/22 11:01 Pulse Ox 96 01/03/22 10:50 Results Result Diagrams: 01/03/22 04:56 01/03/22 04:56 Abnormal lab results 01/02/22 01/02/22 01/03/22 Range/Units 15:30 21:16 04:56 WBC 12.2 H (4.5-11.0) K/mm3 Plt Count 463 H (140-440) K/mm3 Seg Neuts % (Manual) 72.0 H (40.0-70.0) % Seg Neutrophils # Man 8.8 H (1.8-7.7) K/mm3 Carbon Dioxide (22-30) mmol/L Glucose (65-100) mg/dL POC Glucose 224 H 219 H (70-105) mg/dL 01/03/22 01/03/22 01/03/22 Range/Units 04:56 07:13 11:28 WBC (4.5-11.0) K/mm3 Plt Count (140-440) K/mm3 Seg Neuts % (Manual) (40.0-70.0) % Seg Neutrophils # Man (1.8-7.7) K/mm3 Carbon Dioxide 33 H (22-30) mmol/L Glucose 221 H (65-100) mg/dL POC Glucose 269 H 215 H (70-105) mg/dL All other labs normal.
--- NOTE | 2022-01-03 13:58 | Discharge Summary ---
Providers - Providers Date of Admission: 12/28/21 20:31 Date of discharge: 01/03/22 Attending physician: MOUSTAPHA GOMEZ MD 12/28/21 12:41 Consult to Case Management [CONS] Stat Services Needed at Discharge: [employer]s Supervisor Notified:: n Additional Physician Instructions: Assess for safe living conditions. Patient states she became suicidal when family would not respond to her complaint. States she is laying in urine often 12/28/21 13:45 Physical Therapy Evaluation and Treat [CONS] Urgent Comment: Reason For Exam: Evaluate mobility status for discharge planning 12/28/21 13:46 Occupational Therapy Evaluate and Treat [CONS] Urgent Comment: Reason For Exam: Evaluation for discharge planning 12/28/21 15:02 Consult to Wound/ET Nurse [CONS] Routine Reason For Exam: wounds post I&D 12/28/21 20:19 Consult to Physician [CONS] Routine Comment: Dr. Calle spoke with Dr. Romano @ 2017 Consulting Provider: BEENA ROMANO Physician Instructions: Reason For Exam: Cellulitis/Soft tissue air 12/28/21 20:34 Consult to Physician [CONS] Routine Comment: Consulting Provider: GINA BIGGS Physician Instructions: Reason For Exam: sepsis, necrotizing fasc 12/29/21 15:42 Consult to Physician [CONS] Routine Comment: Consulting Provider: BHASKAR PEREZ Physician Instructions: Reason For Exam: Sepsis, Necrotizing Fasciitis 01/02/22 05:40 Consult to Wound/ET Nurse [CONS] Routine Reason For Exam: wound eval 01/03/22 13:30 Consult Geriatric-Psych [CONS] Routine Consulting Provider: STEFANIE POE Reason For Exam: 1013 placed in the ED, pysch eval Primary care physician: ESTATE PLANNING DIRECTOR Hospitalization Reason for admission: Necrotizing fasciitis of right anterior medial thigh Condition: Fair Pertinent studies: Reviewed. Procedures: Wide excisional debridement of right anterior medial thigh x2 Hospital course: Patient is a 66-year-old female past medical history of CVA on DAPT, hypertension, insulin-dependent type 2 diabetes mellitus, diastolic heart failure, GERD, nicotine dependence, osteoarthritis, and chronic debility who presented with worsening swelling, redness, and pain to her right thigh of the previous 3 days that was found to be secondary to necrotizing fasciitis. In the ED patient presented with a tachycardic to 105, WBC 34.9. General surgery was consulted, and the patient underwent wide excision debridement of her right leg (12/29/2021). The patient underwent a repeat debridement on 12/31/2021. The patient was initiated on clindamycin and meropenem for antibiotic coverage. Infectious disease was consulted and recommended the patient continuing meropenem and adding vancomycin in the place of Clinda. The patient revealed significant improvement in her leukocytosis, and she no longer requires debridement by general surgery. The patient was transitioned to p.o. doxycycline 100 mg twice daily and Augmentin 875/125 mg twice daily for a total of 10-day course. The patient was evaluated by PT/OT who recommended subacute rehab; however, the patient does not have the financial resources. Therefore the patient will be discharging home with home health, PT, OT, and retirement. General surgery recommended a wound VAC, and authorization is going through. On admission the patient was placed under 1013 for suicidal ideation. Mental health has assessed the patient and deemed that she no longer requires 1013 status. The patient can be medically discharged. Disposition: 01 HOME / SELF CARE / HOMELESS Final Discharge Diagnosis (Prints w/discharge instructions): Necrotizing fasciitis of the right inner thigh status post wide excisional debridement, lactic acidosis, sepsis, insulin-dependent type 2 diabetes mellitus with hyperglycemia, hypertension, hyperlipidemia, hypokalemia, nicotine dependence, obesity, debility Time spent for discharge: 45 min Core Measure Documentation - Palliative Care Palliative Care/ Comfort Measures: Not Applicable - Core Measures Any of the following diagnoses?: none Exam - Constitutional Vitals: Temp Pulse Resp BP Pulse Ox 98.2 F 86 16 176/75 96 01/03/22 10:50 01/03/22 11:01 01/03/22 10:50 01/03/22 11:01 01/03/22 10:50 General appearance: Present: no acute distress, well-nourished, obese - EENT Eyes: Present: PERRL, EOM intact ENT: hearing intact, clear oral mucosa, edentulous - Neck Neck: Present: supple, normal ROM - Respiratory Respiratory effort: normal Respiratory: bilateral: CTA - Cardiovascular Rhythm: regular Heart Sounds: Present: S1 & S2 - Extremities Extremities: pulses intact, pulses symmetrical, normal temperature, normal color, abnormal (Wide debridement of anterior right thigh with pink granulation tissue; covered in Kerlix and Jarret bandage) Peripheral Pulses: within normal limits - Abdominal General gastrointestinal: Present: soft, non-tender, non-distended, normal bowel sounds Female genitourinary: Present: deferred - Rectal Rectal Exam: deferred - Integumentary Integumentary: Present: clear, warm, dry - Musculoskeletal Musculoskeletal: generalized weakness - Psychiatric Psychiatric: appropriate mood/affect, cooperative - Neurologic Neurologic: CNII-XII intact, moves all extremities - Allied Health Allied health notes reviewed: nursing Plan Activity: advance as tolerated Diet: low salt, diabetic Wound: change dressing (2 times a day with Dakin's solution), per your surgeon's advice Additional Instructions: Patient is a 66-year-old female past medical history of CVA on DAPT, hypertension, insulin-dependent type 2 diabetes mellitus, diastolic heart failure, GERD, nicotine dependence, osteoarthritis, and chronic debility who presented with worsening swelling, redness, and pain to her right thigh of the previous 3 days that was found to be secondary to necrotizing fasciitis. In the ED patient presented with a tachycardic to 105, WBC 34.9. General surgery was consulted, and the patient underwent wide excision debridement of her right leg (12/29/2021). The patient underwent a repeat debridement on 12/31/2021. The patient was initiated on clindamycin and meropenem for antibiotic coverage. Infectious disease was consulted and recommended the patient continuing meropenem and adding vancomycin in the place of Clinda. The patient revealed significant improvement in her leukocytosis, and she no longer requires debridement by general surgery. The patient was transitioned to p.o. doxycycline 100 mg twice daily and Augmentin 875/125 mg twice daily for a total of 10-day course. The patient was evaluated by PT/OT who recommended subacute rehab; however, the patient does not have the financial resources. Therefore the patient will be discharging home with home health, PT, OT, and retirement. General surgery recommended a wound VAC, and authorization is going through. On admission the patient was placed under 1013 for suicidal ideation. Mental health has assessed the patient and deemed that she no longer requires 1013 status. The patient can be medically discharged. Assessment: Patient is a 66-year-old female past medical history of CVA on DAPT, hypertension, insulin-dependent type 2 diabetes mellitus, diastolic heart failure, GERD, nicotine dependence, osteoarthritis, and chronic debility who presented with worsening swelling, redness, and pain to her right thigh of the previous 3 days that was found to be secondary to necrotizing fasciitis. In the ED patient presented with a tachycardic to 105, WBC 34.9. General surgery was consulted, and the patient underwent wide excision debridement of her right leg (12/29/2021). The patient underwent a repeat debridement on 12/31/2021. The patient was initiated on clindamycin and meropenem for antibiotic coverage. Infectious disease was consulted and recommended the patient continuing meropenem and adding vancomycin in the place of Clinda. The patient revealed significant improvement in her leukocytosis, and she no longer requires debridement by general surgery. The patient was transitioned to p.o. doxycycline 100 mg twice daily and Augmentin 875/125 mg twice daily for a total of 10-day course. The patient was evaluated by PT/OT who recommended subacute rehab; however, the patient does not have the financial resources. Therefore the patient will be discharging home with home health, PT, OT, and retirement. General surgery recommended a wound VAC, and authorization is going through. On admission the patient was placed under 1013 for suicidal ideation. Mental health has assessed the patient and deemed that she no longer requires 1013 status. The patient can be medically discharged. Follow up with: BEENA ROMANO MD [Staff Physician] - 14 Days PRIMARY CARE, [Primary Care Provider] - 3-5 Days Prescriptions: Amoxicillin/K Clav Tab [Augmentin 875MG TAB] 1 each PO Q12HR #18 tablet DULoxetine [Cymbalta] 60 mg PO QDAY #30 capsule oxyCODONE /ACETAMINOPHEN [Percocet 5/325] 1 tab PO Q6HR PRN #28 tablet PRN Reason: Pain DOXYCYCLINE Hyclate [Vibramycin CAP] 100 mg PO BID #18 tab lisinopriL [Zestril TAB] 10 mg PO QDAY #30 tablet
[2022-01-03] MEDS ORDERED: SERTRALINE 25 MG TAB PO SCH (14:00)
[2022-01-03] MEDS: INSULIN GLARGINE 100 UNITS/ML SUB-Q SCH (22:13)
[2022-01-04] MEDS: oxyCODONE /ACETAMINOPHEN 5-325MG TAB PO SCH ×3 (06:11→19:14)
[2022-01-04] MEDS: INSULIN LISPRO 100 UNIT/ML SUB-Q SCH ×4 (08:22→22:37)
[2022-01-04] MEDS: DULoxetine 30 MG CAP PO SCH (10:22)
[2022-01-04] MEDS: AMOXICILLIN/K CLAV 875/125MG TAB PO SCH ×2 (10:22→22:38)
[2022-01-04] MEDS: FAMOTIDINE 10 MG TAB PO SCH ×2 (10:23→22:38)
[2022-01-04] MEDS: ASPIRIN 325 MG TAB PO SCH (10:23)
[2022-01-04] MEDS: amLODIPine 5 MG TAB PO SCH (10:24)
[2022-01-04] MEDS: NICOTINE 14 MG/24 HR PATCH TD SCH (10:24)
[2022-01-04] MEDS: CLOPIDOGREL 75 MG TAB PO SCH (10:24)
[2022-01-04] MEDS: GABAPENTIN 300 MG CAP PO SCH ×2 (10:24→22:38)
[2022-01-04] MEDS: DOXYCYCLINE 100 MG CAP PO SCH ×2 (10:24→22:38)
[2022-01-04] MEDS: LISINOPRIL 10 MG TAB PO SCH (10:26)
--- NOTE | 2022-01-04 11:51 | Progress Note ---
Subjective - Reason for Consult Consult date: 01/04/22 Reason for consult: SI - Chief Complaint Chief complaint: The patient was seen today. She is quiet and appears down. She says her leg hurts. When asked about being suicidal, the patient replies "yes, I am. I can't live like this. I will not be a burden on my daughter." The patient says she was doing to end her life by taking insulin. She says "I don't want to be a bother to nobody. I will not keep living like this." When asking the patient if she had a plan to end her life, she turns her head and says "I don't know. But I will figure out something." She verbalizes being very depressed. She denies hallucinations. REVIEW OF SYSTEMS Constitutional: Negative for weight loss ENT: Negative for stridor Respiratory: Negative for cough or hemoptysis All other systems reviewed and are negative MENTAL STATUS EXAMINATION General Appearance and Behavior: Age appropriate, good hygiene, wearing appropriate clothes, fair eye contact, cooperative polite with questioning. Cooperation: Participating/engaged Psychomotor Behavior: unremarkable and within normal limits Mood: depressed Affect and affective range: congruent with mood Thought Process: Goal oriented Thought Content: Reality oriented Speech: Normal volume, Regular rate and rhythm Suicidal Ideation: Yes Homicidal Ideation: Denies Hallucinations: Visual Impulse Control: Normal Insight and Judgment:Limited insight and good judgment Memory: Normal Attention: Distractible Orientation: Alert, oriented x 2 Assessment and Plan (1) Major depressive disorder Current Visit: Yes Status: Acute RECOMMENDATIONS 1013 Increase Cymbalta 120mg po daily Start Trazodone 50mg po qhs Risks, benefits and alternatives of medications discussed with the patient, questions answered and consent obtained from patient. PSYCHOTHERAPY: Supportive psychotherapy provided MEDICAL: Per primary team DELIRIUM PRECAUTIONS: Please re-orient patient frequently, keep lights on during the day, and minimize benzodiazepines and opiates as these medications could worsen patient's confusion. ART COORDINATOR: Per medical team DISPOSITION: recommend acute inpatient psychiatric hospitalization at this time. FOLLOW-UP: Will follow Thank you for the consult. Please contact with any questions and/or concerns. Case staffed by Dr. Mcelroy Mental Status Exam - Vital signs Last Vital Signs Temp 98.1 F 01/04/22 05:39 Pulse 89 01/04/22 10:26 Resp 20 01/04/22 05:39 BP 142/85 01/04/22 10:26 Pulse Ox 100 01/04/22 08:05
--- NOTE | 2022-01-04 15:36 | Event Note ---
Date: 01/04/22 Patient was evaluated by [facility] today, and the patient elicited suicidal thoughts on multiple occasions. The 1013 will be reinstated on the patient. Per [facility] psych's notes the patient needs inpatient psychiatric hospitalization.
[2022-01-04] MEDS ORDERED: SODIUM CHLORIDE 0.9% 1000 ML 0 ML ONE (16:35)
[2022-01-04] MEDS ORDERED: SODIUM CHLORIDE 0.9% IRR 500 ML BOTTLE IR PRN (16:38)
--- NOTE | 2022-01-04 19:46 | Progress Note ---
Assessment and Plan 66 YO Female with CVA on DAPT, HTN, DM, Diastolic CHF, GERD, Nicotine Dependence, OA, Debility presents to ED for evaluation. Patient states that she has experienced swelling, redness, and pain to her right thigh area over the past 3 days with persistent and worsening symptoms over the same timeframe. Patient states the pain is 10/10, constant, worsened with movement, and relieved with nonmovement. Patient also reports feeling depressed due to her current living conditions. Patient reports feeling suicidal and considered drawing up insulin and taking a big dose in an attempt to take her own life. Patient states that she is unsatisfied with her current family response to her needs. EMS was notified by family members due to the aforementioned symptoms and upon arrival the patient was found to be in distress and subsequent transported to [facility] for further care and evaluation of the aforementioned symptoms. Patient was found to have fever with a temperature of 101 F. Patient was also found to have cellulitis to the right thigh and perineal area complicated by sepsis. Patient admitted to medical floor and initiated on sepsis protocol. Mental health team consulted in ED. patient denies chills, chest pain, palpitation, productive cough, skin rash, recent contact, known exposure to COVID-19. Patient has history of smoking 1 pack a day x 30 years. Counseled to stop smoking. Patient has history of alcohol and drug abuse. 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 Allergic to pencillin. Patient Obese, awake. Patient resting on room air. O2 saturation 97%. No acute respiratory distress. Patient afebrile. Has leukocytosis. Blood pressure 144/68 , Pulse 91 , Respirations 16. Chest xray done 01/01/22 reported No acute findings. There is no evidence of pneumonia. Patient is started on PO antibiotics Augmentin and vibramycin. Patient allergic to pencillin. Recommend to change other antibiotic like Levaquine or Bactrim. Called the nurse taking care of the patient, told her to inform about pencillin allergy to the hospitalist. Famotidine, Plavix, Albuterol inhaler and Nicotine patch. - Patient Problems (1) Cellulitis of right lower extremity Current Visit: Yes Status: Acute Plan to address problem: Patient was on meropenum and vancomycin. Patient just started on PO augmentin and Vibramycin. Patient allergic to penicillin. Recommend to change augmentin to Levaquin or Bactrim. (2) Diabetes Current Visit: Yes Status: Acute Plan to address problem: Management as per primary care. (3) Diastolic CHF Current Visit: Yes Status: Acute Qualifiers: Heart failure chronicity: chronic Qualified Code(s): I50.32 - Chronic diastolic (congestive) heart failure Plan to address problem: Management as per cardiology. (4) GERD (gastroesophageal reflux disease) Current Visit: Yes Status: Acute Qualifiers: Esophagitis presence: without esophagitis Qualified Code(s): K21.9 - Gastro-esophageal reflux disease without esophagitis Plan to address problem: On Famotidine. (5) Hypertension Current Visit: Yes Status: Acute Qualifiers: Hypertension type: primary hypertension Qualified Code(s): I10 - Essential (primary) hypertension Plan to address problem: Management as per primary care. (6) Sepsis Current Visit: Yes Status: Acute Plan to address problem: Patient was on Meropenum and vancomycin. (7) Nicotine dependence Current Visit: No Status: Acute Qualifiers: Nicotine product type: cigarettes Substance use status: in withdrawal Qualified Code(s): F17.213 - Nicotine dependence, cigarettes, with withdrawal Plan to address problem: Counseled to stop smoking. (8) Obesity (BMI 30-39.9) Current Visit: Yes Status: Acute Plan to address problem: Recommend to loose weight. Recommend sleep study as out patient. Subjective Date of service: 01/04/22 Principal diagnosis: Cellulitis (Nec Faciitis); DM II; Morbid obesity ; Tobacco abuse; Acidosis Interval history: 66 YO Female with CVA on DAPT, HTN, DM, Diastolic CHF, GERD, Nicotine Dependence, OA, Debility presents to ED for evaluation. Patient states that she has experienced swelling, redness, and pain to her right thigh area over the past 3 days with persistent and worsening symptoms over the same timeframe. Patient states the pain is 10/10, constant, worsened with movement, and relieved with nonmovement. Patient also reports feeling depressed due to her current living conditions. Patient reports feeling suicidal and considered drawing up insulin and taking a big dose in an attempt to take her own life. Patient states that she is unsatisfied with her current family response to her needs. EMS was notified by family members due to the aforementioned symptoms and upon arrival the patient was found to be in distress and subsequent transported to [facility] for further care and evaluation of the aforementioned symptoms. Patient was found to have fever with a temperature of 101 F. Patient was also found to have cellulitis to the right thigh and perineal area complicated by sepsis. Patient admitted to medical floor and initiated on sepsis protocol. Mental health team consulted in ED. patient denies chills, chest pain, palpitation, productive cough, skin rash, recent contact, known exposure to COVID-19. Patient has history of smoking 1 pack a day x 30 years. Counseled to stop smoking. Patient has history of alcohol and drug abuse. 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 Allergic to pencillin. Patient Obese, awake. Patient resting on room air. O2 saturation 97%. No acute respiratory distress. Patient afebrile. Has leukocytosis. Blood pressure 144/68 , Pulse 91 , Respirations 16. Chest xray done 01/01/22 reported No acute findings. There is no evidence of pneumonia. Patient is started on PO antibiotics Augmentin and vibramycin. Patient allergic to pencillin. Recommend to change other antibiotic like Levaquine or Bactrim. Called the nurse taking care of the patient, told her to inform about pencillin allergy to the hospitalist Famotidine, Plavix, Albuterol inhaler and Nicotine patch. Objective Vital Signs - 12hr 01/04/22 01/04/22 01/04/22 08:05 10:00 10:24 Pulse Rate 89 Pulse Rate [ 96 H From Monitor] Respiratory 16 Rate Blood Pressure 142/85 O2 Sat by Pulse 100 97 Oximetry 01/04/22 10:26 Pulse Rate 89 Pulse Rate [ From Monitor] Respiratory Rate Blood Pressure 142/85 O2 Sat by Pulse Oximetry Constitutional: no acute distress, alert Eyes: non-icteric ENT: oropharynx moist Neck: supple, no lymphadenopathy Effort: mildly labored Ascultation: Bilateral: diminished breath sounds Percussion: Bilateral: not dull Cardiovascular: regular rate and rhythm Gastrointestinal: normoactive bowel sounds, soft, non-tender Integumentary: normal Extremities: edema, other (Cellulitis, right thigh.) Neurologic: non-focal exam, pupils equal and round, CN II-XII normal Psychiatric: other (flat affect) CBC and BMP: 01/03/22 04:56 01/03/22 04:56 ABG, PT/INR, D-dimer: ABG ABG pH 7.413 pH Units (7.350-7.450) 01/01/22 10:48 ABG pCO2 56.6 mm Hg 01/01/22 10:48 ABG pO2 54.5 mm Hg (80.0-90.0) L 01/01/22 10:48 ABG O2 Saturation 89.0 % (95.0-99.0) L 01/01/22 10:48 Abnormal lab findings: Abnormal Labs 12/28/21 12/28/21 12/28/21 12:49 12:49 12:49 WBC 34.9 H Hgb 14.7 H Hct 47.7 H MCH MCHC Plt Count Seg Neuts % (Manual) 90.0 H Lymphocytes % (Manual) 0 L Monocytes % (Manual) Seg Neutrophils # Man 31.4 H Lymphocytes # (Manual) 0.0 L Monocytes # (Manual) 1.4 H ABG pO2 ABG HCO3 ABG O2 Saturation ABG Base Excess ABG Hemoglobin Oxyhemoglobin Potassium Carbon Dioxide Glucose 362 H POC Glucose Lactic Acid Calcium Alkaline Phosphatase 269 H Total Protein Albumin 3.1 L Ur Specific [place] Salicylates < 0.3 L Acetaminophen 12/28/21 12/28/21 12/28/21 12:49 19:00 19:04 WBC Hgb Hct MCH MCHC Plt Count Seg Neuts % (Manual) Lymphocytes % (Manual) Monocytes % (Manual) Seg Neutrophils # Man Lymphocytes # (Manual) Monocytes # (Manual) ABG pO2 ABG HCO3 ABG O2 Saturation ABG Base Excess ABG Hemoglobin Oxyhemoglobin Potassium Carbon Dioxide Glucose POC Glucose Lactic Acid 3.30 H* Calcium Alkaline Phosphatase Total Protein Albumin Ur Specific [place] 1.043 H Salicylates Acetaminophen 5.0 L 12/28/21 12/28/21 12/28/21 20:41 20:56 20:56 WBC Hgb Hct MCH MCHC Plt Count Seg Neuts % (Manual) Lymphocytes % (Manual) Monocytes % (Manual) Seg Neutrophils # Man Lymphocytes # (Manual) Monocytes # (Manual) ABG pO2 ABG HCO3 ABG O2 Saturation ABG Base Excess ABG Hemoglobin Oxyhemoglobin Potassium Carbon Dioxide 20 L Glucose 419 H POC Glucose 399 H Lactic Acid 2.80 H* Calcium 8.1 L Alkaline Phosphatase Total Protein Albumin Ur Specific [place] Salicylates Acetaminophen 12/28/21 12/29/21 12/29/21 22:00 00:16 04:47 WBC 30.7 H Hgb Hct MCH 33 H MCHC 35 H Plt Count Seg Neuts % (Manual) 94.0 H Lymphocytes % (Manual) 2.0 L Monocytes % (Manual) Seg Neutrophils # Man 28.9 H Lymphocytes # (Manual) 0.6 L Monocytes # (Manual) ABG pO2 ABG HCO3 ABG O2 Saturation ABG Base Excess ABG Hemoglobin Oxyhemoglobin Potassium Carbon Dioxide Glucose POC Glucose 358 H 257 H Lactic Acid Calcium Alkaline Phosphatase Total Protein Albumin Ur Specific [place] Salicylates Acetaminophen 12/29/21 12/29/21 12/29/21 04:47 11:25 17:14 WBC Hgb Hct MCH MCHC Plt Count Seg Neuts % (Manual) Lymphocytes % (Manual) Monocytes % (Manual) Seg Neutrophils # Man Lymphocytes # (Manual) Monocytes # (Manual) ABG pO2 ABG HCO3 ABG O2 Saturation ABG Base Excess ABG Hemoglobin Oxyhemoglobin Potassium Carbon Dioxide Glucose 280 H POC Glucose 321 H 136 H Lactic Acid Calcium 8.0 L Alkaline Phosphatase 237 H Total Protein 6.0 L Albumin 2.3 L Ur Specific [place] Salicylates Acetaminophen 12/29/21 12/30/21 12/30/21 20:59 04:42 04:42 WBC 19.9 H Hgb Hct MCH MCHC Plt Count Seg Neuts % (Manual) Lymphocytes % (Manual) Monocytes % (Manual) Seg Neutrophils # Man Lymphocytes # (Manual) Monocytes # (Manual) ABG pO2 ABG HCO3 ABG O2 Saturation ABG Base Excess ABG Hemoglobin Oxyhemoglobin Potassium 3.2 L Carbon Dioxide Glucose 172 H POC Glucose 150 H Lactic Acid Calcium 8.3 L Alkaline Phosphatase Total Protein Albumin Ur Specific [place] Salicylates Acetaminophen 12/30/21 12/30/21 12/30/21 08:14 11:23 16:25 WBC Hgb Hct MCH MCHC Plt Count Seg Neuts % (Manual) Lymphocytes % (Manual) Monocytes % (Manual) Seg Neutrophils # Man Lymphocytes # (Manual) Monocytes # (Manual) ABG pO2 ABG HCO3 ABG O2 Saturation ABG Base Excess ABG Hemoglobin Oxyhemoglobin Potassium Carbon Dioxide Glucose POC Glucose 194 H 245 H 209 H Lactic Acid Calcium Alkaline Phosphatase Total Protein Albumin Ur Specific [place] Salicylates Acetaminophen 12/30/21 12/31/21 12/31/21 21:27 07:31 11:46 WBC Hgb Hct MCH MCHC Plt Count Seg Neuts % (Manual) Lymphocytes % (Manual) Monocytes % (Manual) Seg Neutrophils # Man Lymphocytes # (Manual) Monocytes # (Manual) ABG pO2 ABG HCO3 ABG O2 Saturation ABG Base Excess ABG Hemoglobin Oxyhemoglobin Potassium Carbon Dioxide Glucose POC Glucose 169 H 164 H 172 H Lactic Acid Calcium Alkaline Phosphatase Total Protein Albumin Ur Specific [place] Salicylates Acetaminophen 12/31/21 12/31/21 01/01/22 15:26 21:44 07:38 WBC Hgb Hct MCH MCHC Plt Count Seg Neuts % (Manual) Lymphocytes % (Manual) Monocytes % (Manual) Seg Neutrophils # Man Lymphocytes # (Manual) Monocytes # (Manual) ABG pO2 ABG HCO3 ABG O2 Saturation ABG Base Excess ABG Hemoglobin Oxyhemoglobin Potassium Carbon Dioxide Glucose POC Glucose 154 H 272 H 143 H Lactic Acid Calcium Alkaline Phosphatase Total Protein Albumin Ur Specific [place] Salicylates Acetaminophen 01/01/22 01/01/22 01/01/22 10:48 12:02 16:51 WBC Hgb Hct MCH MCHC Plt Count Seg Neuts % (Manual) Lymphocytes % (Manual) Monocytes % (Manual) Seg Neutrophils # Man Lymphocytes # (Manual) Monocytes # (Manual) ABG pO2 54.5 L ABG HCO3 35.3 H ABG O2 Saturation 89.0 L ABG Base Excess 9.1 H ABG Hemoglobin 11.5 L Oxyhemoglobin 87.4 L Potassium Carbon Dioxide Glucose POC Glucose 256 H 67 L Lactic Acid Calcium Alkaline Phosphatase Total Protein Albumin Ur Specific [place] Salicylates Acetaminophen 01/01/22 01/01/22 01/02/22 17:47 21:36 07:25 WBC 13.4 H Hgb Hct MCH MCHC Plt Count Seg Neuts % (Manual) 74.0 H Lymphocytes % (Manual) 13.0 L Monocytes % (Manual) 10.0 H Seg Neutrophils # Man 9.9 H Lymphocytes # (Manual) Monocytes # (Manual) 1.3 H ABG pO2 ABG HCO3 ABG O2 Saturation ABG Base Excess ABG Hemoglobin Oxyhemoglobin Potassium Carbon Dioxide Glucose POC Glucose 148 H 278 H Lactic Acid Calcium Alkaline Phosphatase Total Protein Albumin Ur Specific [place] Salicylates Acetaminophen 01/02/22 01/02/22 01/02/22 07:25 07:47 11:07 WBC Hgb Hct MCH MCHC Plt Count Seg Neuts % (Manual) Lymphocytes % (Manual) Monocytes % (Manual) Seg Neutrophils # Man Lymphocytes # (Manual) Monocytes # (Manual) ABG pO2 ABG HCO3 ABG O2 Saturation ABG Base Excess ABG Hemoglobin Oxyhemoglobin Potassium Carbon Dioxide 32 H Glucose 190 H POC Glucose 189 H 256 H Lactic Acid Calcium Alkaline Phosphatase Total Protein Albumin Ur Specific [place] Salicylates Acetaminophen 01/02/22 01/02/22 01/03/22 15:30 21:16 04:56 WBC 12.2 H Hgb Hct MCH MCHC Plt Count 463 H Seg Neuts % (Manual) 72.0 H Lymphocytes % (Manual) Monocytes % (Manual) Seg Neutrophils # Man 8.8 H Lymphocytes # (Manual) Monocytes # (Manual) ABG pO2 ABG HCO3 ABG O2 Saturation ABG Base Excess ABG Hemoglobin Oxyhemoglobin Potassium Carbon Dioxide Glucose POC Glucose 224 H 219 H Lactic Acid Calcium Alkaline Phosphatase Total Protein Albumin Ur Specific [place] Salicylates Acetaminophen 01/03/22 01/03/22 01/03/22 04:56 07:13 11:28 WBC Hgb Hct MCH MCHC Plt Count Seg Neuts % (Manual) Lymphocytes % (Manual) Monocytes % (Manual) Seg Neutrophils # Man Lymphocytes # (Manual) Monocytes # (Manual) ABG pO2 ABG HCO3 ABG O2 Saturation ABG Base Excess ABG Hemoglobin Oxyhemoglobin Potassium Carbon Dioxide 33 H Glucose 221 H POC Glucose 269 H 215 H Lactic Acid Calcium Alkaline Phosphatase Total Protein Albumin Ur Specific [place] Salicylates Acetaminophen 01/03/22 01/03/22 01/04/22 15:55 21:49 07:33 WBC Hgb Hct MCH MCHC Plt Count Seg Neuts % (Manual) Lymphocytes % (Manual) Monocytes % (Manual) Seg Neutrophils # Man Lymphocytes # (Manual) Monocytes # (Manual) ABG pO2 ABG HCO3 ABG O2 Saturation ABG Base Excess ABG Hemoglobin Oxyhemoglobin Potassium Carbon Dioxide Glucose POC Glucose 168 H 154 H 158 H Lactic Acid Calcium Alkaline Phosphatase Total Protein Albumin Ur Specific [place] Salicylates Acetaminophen 01/04/22 01/04/22 11:47 16:20 WBC Hgb Hct MCH MCHC Plt Count Seg Neuts % (Manual) Lymphocytes % (Manual) Monocytes % (Manual) Seg Neutrophils # Man Lymphocytes # (Manual) Monocytes # (Manual) ABG pO2 ABG HCO3 ABG O2 Saturation ABG Base Excess ABG Hemoglobin Oxyhemoglobin Potassium Carbon Dioxide Glucose POC Glucose 234 H 217 H Lactic Acid Calcium Alkaline Phosphatase Total Protein Albumin Ur Specific [place] Salicylates Acetaminophen Chest x-ray: report reviewed, image reviewed Additional Studies: CHEST 2 VIEWS 01/01/22 INDICATION / CLINICAL INFORMATION: Sepsis. COMPARISON: 03/29/21. FINDINGS: SUPPORT DEVICES: None. HEART / MEDIASTINUM: The heart size and pulmonary vasculature are normal. LUNGS / PLEURA: No significant pulmonary or pleural abnormality. No pneumothorax. ADDITIONAL FINDINGS: There are moderate degenerative changes involving both glenohumeral joints. IMPRESSION: No acute findings. There is no evidence of pneumonia. Allied health notes reviewed: nursing
[2022-01-04] MEDS: traZODone 50 MG TAB PO SCH (22:38)
[2022-01-04] MEDS: INSULIN GLARGINE 100 UNITS/ML SUB-Q SCH (22:40)
[2022-01-05] MEDS: oxyCODONE /ACETAMINOPHEN 5-325MG TAB PO SCH ×4 (00:10→17:46)
--- NOTE | 2022-01-05 08:09 | Progress Note ---
Assessment and Plan Assessment and plan: 66-year-old female with known past medical history of CVA on DAPT, HTN, DM, Diastolic CHF, GERD, Nicotine Dependence, OA, and Debility admitted for sepsis 2/2 necrotizing fasciitis of the right leg s/p wide excisional debridement by General Surgery. #Suicidal ideation [address] [facility] psych consulted; appreciate recs Pending acute psychiatric inpatient hospitalization #Sepsisresolved #Leukocytosis-resolved #Cellulitis of Right Lower Extremity #Necrotizing Fasciitis of the Right Leg status post wide excisional debridement #Lactic Acidosis- resolved 12/28 s/p wide excisional debridement; repeated on 12/31/2021 General surgery consulted; appreciate recs Pulmonology consulted; appreciate recs Infectious disease consulted; appreciate recs Discontinued clindamycin. Continue meropenem 500 mg every 6 hours and starting vancomycin 1 g every 12 hours Leukocytosis downtrending, remains afebrile Blood culture NG x 48hrs #Insulin dependent type II diabetes mellitus with hyperglycemia - hemoglobin A1c: pending - home regimen: NPH 70/30 15 units twice daily - current regimen: Lantus 25 units nightly - blood glucose goal 140-180 while inpatient - continue to monitor #Hypertension #Hyperlipidemia - home medications: Amlodipine 5 mg daily, atorvastatin 80 mg daily - current medications: Amlodipine 5 mg daily, Plavix 75 mg daily, lisinopril 10 mg daily - SBP goal <160 and DBP goal <90 while inpatient - continue to monitor #Hypokalemiaresolved - will replete and monitor #Nicotine Dependence - Nicotine patch added - Smoking cessation counseling, supportive care, behavior change counseling, +15 minutes. #Debility - PT/OT consulted; appreciate recs #Advanced care planning -Disease education conducted, care plan discussed, diagnoses discussed, prognosis discussed, and patient acknowledges understanding with care plan -Time: +30 min #Discharge planning - Patient is acute psychiatric inpatient hospitalization - Case management has been made aware. Disposition Plan: Pending acute psychiatric inpatient hospitalization Total Time Spent with Patient (Minutes): 30 minutes History Interval history: Patient was evaluated by psychiatry and she admitted to thoughts of self-harm, a nd her 1013 was reinitiated. Hospitalist Physical - Constitutional Vitals: Temp Pulse Resp BP Pulse Ox 98.3 F 78 18 151/68 94 01/05/22 04:33 01/05/22 04:33 01/05/22 04:33 01/05/22 04:33 01/05/22 04:33 General appearance: Present: no acute distress, well-nourished, obese - EENT Eyes: Present: PERRL, EOM intact ENT: hearing intact, clear oral mucosa, poor dentition, edentulous - Neck Neck: Present: supple, normal ROM - Respiratory Respiratory effort: normal Respiratory: bilateral: CTA - Cardiovascular Rhythm: regular Heart Sounds: Present: S1 & S2 - Extremities Extremities: no ischemia, pulses intact, pulses symmetrical, normal temperature, normal color, abnormal (Open debridement of right anterior thigh with pink granulation tissue; wound VAC attached) Peripheral Pulses: within normal limits - Abdominal General gastrointestinal: soft, non-tender, non-distended, normal bowel sounds - Integumentary Integumentary: Present: clear, warm, dry - Psychiatric Psychiatric: cooperative, depressed - Neurologic Neurologic: CNII-XII intact - Allied Health Allied health notes reviewed: nursing Results - Labs CBC & Chem 7: 01/03/22 04:56 01/03/22 04:56 Labs: Laboratory Last Values WBC 12.2 K/mm3 (4.5-11.0) H 01/03/22 04:56 RBC 3.85 M/mm3 (3.65-5.03) 01/03/22 04:56 Hgb 11.5 gm/dl (10.1-14.3) 01/03/22 04:56 Hct 36.4 % (30.3-42.9) 01/03/22 04:56 MCV 94 fl (79-97) 01/03/22 04:56 MCH 30 pg (28-32) 01/03/22 04:56 MCHC 32 % (30-34) 01/03/22 04:56 RDW 14.4 % (13.2-15.2) 01/03/22 04:56 Plt Count 463 K/mm3 (140-440) H 01/03/22 04:56 Add Manual Diff Complete 01/03/22 04:56 Total Counted 100 01/03/22 04:56 Seg Neutrophils % Energy And Conservation Technician 12/28/21 12:49 Seg Neuts % (Manual) 72.0 % (40.0-70.0) H 01/03/22 04:56 Band Neutrophils % 0 % 01/03/22 04:56 Lymphocytes % (Manual) 25.0 % (13.4-35.0) 01/03/22 04:56 Reactive Lymphs % (Man) 0 % 01/03/22 04:56 Monocytes % (Manual) 3.0 % (0.0-7.3) 01/03/22 04:56 Eosinophils % (Manual) 0 % (0.0-4.3) 01/03/22 04:56 Basophils % (Manual) 0 % (0.0-1.8) 01/03/22 04:56 Metamyelocytes % 0 % 01/03/22 04:56 Myelocytes % 0 % 01/03/22 04:56 Promyelocytes % 0 % 01/03/22 04:56 Blast Cells % 0 % 01/03/22 04:56 Nucleated RBC % Not Reportable 01/03/22 04:56 Seg Neutrophils # Man 8.8 K/mm3 (1.8-7.7) H 01/03/22 04:56 Band Neutrophils # 0.0 K/mm3 01/03/22 04:56 Lymphocytes # (Manual) 3.1 K/mm3 (1.2-5.4) 01/03/22 04:56 Abs React Lymphs (Man) 0.0 K/mm3 01/03/22 04:56 Monocytes # (Manual) 0.4 K/mm3 (0.0-0.8) 01/03/22 04:56 Eosinophils # (Manual) 0.0 K/mm3 (0.0-0.4) 01/03/22 04:56 Basophils # (Manual) 0.0 K/mm3 (0.0-0.1) 01/03/22 04:56 Metamyelocytes # 0.0 K/mm3 01/03/22 04:56 Myelocytes # 0.0 K/mm3 01/03/22 04:56 Promyelocytes # 0.0 K/mm3 01/03/22 04:56 Blast Cells # 0.0 K/mm3 01/03/22 04:56 Pathologist Review 12/28/21 12:49 WBC Morphology Not Reportable 01/03/22 04:56 Hypersegmented Neuts Not Reportable 01/03/22 04:56 Hyposegmented Neuts Not Reportable 01/03/22 04:56 Hypogranular Neuts Not Reportable 01/03/22 04:56 Smudge Cells Not Reportable 01/03/22 04:56 Toxic Granulation Not Reportable 01/03/22 04:56 Toxic Vacuolation Not Reportable 01/03/22 04:56 Dohle Bodies Not Reportable 01/03/22 04:56 Pelger-Huet Anomaly Not Reportable 01/03/22 04:56 Kennedi Rods Not Reportable 01/03/22 04:56 Platelet Estimate Consistent w auto 01/03/22 04:56 Clumped Platelets Not Reportable 01/03/22 04:56 Plt Clumps, EDTA Not Reportable 01/03/22 04:56 Large Platelets Not Reportable 01/03/22 04:56 Giant Platelets Not Reportable 01/03/22 04:56 Platelet Satelliting Not Reportable 01/03/22 04:56 Plt Morphology Comment Not Reportable 01/03/22 04:56 RBC Morphology Normal 01/03/22 04:56 Dimorphic RBCs Not Reportable 01/03/22 04:56 Polychromasia Not Reportable 01/03/22 04:56 Hypochromasia Not Reportable 01/03/22 04:56 Poikilocytosis Not Reportable 01/03/22 04:56 Anisocytosis Not Reportable 01/03/22 04:56 Microcytosis Not Reportable 01/03/22 04:56 Macrocytosis Not Reportable 01/03/22 04:56 Spherocytes Not Reportable 01/03/22 04:56 Pappenheimer Bodies Not Reportable 01/03/22 04:56 Sickle Cells Not Reportable 01/03/22 04:56 Target Cells Not Reportable 01/03/22 04:56 Tear Drop Cells Not Reportable 01/03/22 04:56 Ovalocytes Not Reportable 01/03/22 04:56 Helmet Cells Not Reportable 01/03/22 04:56 [place] Bodies Not Reportable 01/03/22 04:56 [place] Rings Not Reportable 01/03/22 04:56 [place] Cells Not Reportable 01/03/22 04:56 Bite Cells Not Reportable 01/03/22 04:56 Crenated Cell Not Reportable 01/03/22 04:56 Elliptocytes Not Reportable 01/03/22 04:56 Acanthocytes (Spur) Not Reportable 01/03/22 04:56 Rouleaux Not Reportable 01/03/22 04:56 Hemoglobin C Crystals Not Reportable 01/03/22 04:56 Schistocytes Not Reportable 01/03/22 04:56 Malaria parasites Not Reportable 01/03/22 04:56 [place] Bodies Not Reportable 01/03/22 04:56 Hem Pathologist Commnt No 01/03/22 04:56 ABG pH 7.413 pH Units (7.350-7.450) 01/01/22 10:48 ABG pCO2 56.6 mm Hg 01/01/22 10:48 ABG pO2 54.5 mm Hg (80.0-90.0) L 01/01/22 10:48 ABG HCO3 35.3 mmol/L (20.0-26.0) H 01/01/22 10:48 ABG O2 Saturation 89.0 % (95.0-99.0) L 01/01/22 10:48 ABG O2 Content 14.1 (0.0-44) 01/01/22 10:48 ABG Base Excess 9.1 mmol/L (-2.0-3.0) H 01/01/22 10:48 ABG Hemoglobin 11.5 gm/dl (12.0-16.0) L 01/01/22 10:48 ABG Carboxyhemoglobin 1.2 % (0.0-5.0) 01/01/22 10:48 ABG Methemoglobin 0.5 % (0.0-1.5) 01/01/22 10:48 Oxyhemoglobin 87.4 % (95.0-99.0) L 01/01/22 10:48 FiO2 21 % 01/01/22 10:48 Sodium 143 mmol/L (137-145) 01/03/22 04:56 Potassium 3.7 mmol/L (3.6-5.0) 01/03/22 04:56 Chloride 101.2 mmol/L (98-107) 01/03/22 04:56 Carbon Dioxide 33 mmol/L (22-30) H 01/03/22 04:56 Anion Gap 13 mmol/L 01/03/22 04:56 BUN 12 mg/dL (7-17) 01/03/22 04:56 Creatinine 0.7 mg/dL (0.6-1.2) 01/03/22 04:56 Estimated GFR > 60 ml/min 01/03/22 04:56 BUN/Creatinine Ratio 17 % 01/03/22 04:56 Glucose 221 mg/dL (65-100) H 01/03/22 04:56 POC Glucose 198 mg/dL (70-105) H 01/05/22 07:28 Lactic Acid 1.60 mmol/L (0.7-2.0) 12/29/21 13:08 Calcium 8.5 mg/dL (8.4-10.2) 01/03/22 04:56 Total Bilirubin 0.60 mg/dL (0.1-1.2) 12/29/21 04:47 AST 38 units/L (5-40) 12/29/21 04:47 ALT 31 units/L (7-56) 12/29/21 04:47 Alkaline Phosphatase 237 units/L (35-129) H 12/29/21 04:47 Total Protein 6.0 g/dL (6.3-8.2) L 12/29/21 04:47 Albumin 2.3 g/dL (3.9-5) L 12/29/21 04:47 Albumin/Globulin Ratio 0.6 % 12/29/21 04:47 Urine Color Yellow (Yellow) 12/28/21 19:00 Urine Turbidity Clear (Clear) 12/28/21 19:00 Urine pH 6.0 (5.0-7.0) 12/28/21 19:00 Ur Specific [place] 1.043 (1.003-1.030) H 12/28/21 19:00 Urine Protein 30 mg/dl mg/dL (Negative) 12/28/21 19:00 Urine Glucose (UA) >=500 mg/dL (Negative) 12/28/21 19:00 Urine Ketones Neg mg/dL (Negative) 12/28/21 19:00 Urine Blood Neg (Negative) 12/28/21 19:00 Urine Nitrite Neg (Negative) 12/28/21 19:00 Urine Bilirubin Neg (Negative) 12/28/21 19:00 Urine Urobilinogen 4.0 mg/dL (<2.0) 12/28/21 19:00 Ur Leukocyte Esterase Neg (Negative) 12/28/21 19:00 Urine WBC (Auto) 6.0 /HPF (0.0-6.0) 12/28/21 19:00 Urine RBC (Auto) 14.0 /HPF (0.0-6.0) 12/28/21 19:00 U Epithel Cells (Auto) 2.0 /HPF (0-13.0) 12/28/21 19:00 Urine Bacteria (Auto) 1+ /HPF (Negative) 12/28/21 19:00 Urine Mucus Few /HPF 12/28/21 19:00 Urine Yeast (Budding) 1+ /HPF 12/28/21 19:00 Nasal Screen MRSA (PCR) Negative (Negative) 12/29/21 14:30 Vancomycin Trough 6.1 ug/mL (5.0-20.0) 01/03/22 04:56 Salicylates < 0.3 mg/dL (2.8-20.0) L 12/28/21 12:49 Urine Opiates Screen Presumptive negative 12/28/21 19:00 Urine Methadone Screen Presumptive negative 12/28/21 19:00 Acetaminophen 5.0 ug/mL (10.0-30.0) L 12/28/21 12:49 Ur Barbiturates Screen Presumptive negative 12/28/21 19:00 Ur Phencyclidine Scrn Presumptive negative 12/28/21 19:00 Ur Amphetamines Screen Presumptive negative 12/28/21 19:00 U Benzodiazepines Scrn Presumptive negative 12/28/21 19:00 Urine Cocaine Screen Presumptive negative 12/28/21 19:00 U Marijuana (THC) Screen Presumptive positive 12/28/21 19:00 Drugs of Abuse Note Disclamer 12/28/21 19:00 Plasma/Serum Alcohol < 0.01 % (0-0.07) 12/28/21 12:49 Coronavirus (PCR) Negative (Negative) 01/04/22 Unknown Blood Type A POSITIVE 12/28/21 15:20 Antibody Screen Negative 12/28/21 15:20 Enriquez/IV: Voiding Method External Female Catheter Active Medications - Current Medications Current Medications: Generic Name Dose Route Start Last Admin Trade Name Freq PRN Reason Stop Dose Admin Acetaminophen 650 mg 12/28/21 20:33 Acetaminophen 325 Mg Tab PO Q8H PRN Pain, Mild (1-3) Al Hydrox/Mg Hydrox/Simethicone 30 ml 12/30/21 17:30 Alum-Mag Hydroxide-Simethicone [id number]/5ml Oral Liqd 30 Ml PO Q4H PRN Indigestion Albuterol 2.5 mg 12/28/21 20:31 Albuterol 2.5 Mg/3 Ml Nebu IH Q4HRT PRN Shortness Of Breath Amlodipine Besylate 5 mg 12/30/21 10:00 01/04/22 10:24 Amlodipine 5 Mg Tab PO 5 mg QDAY BAUTISTA Administration Amoxicillin/Clavulanate Potassium 1 each 01/02/22 22:00 01/04/22 22:38 Amoxicillin/K Clav 875/125mg Tab PO 1 each Q12HR BUATISTA Administration Protocol Aspirin 325 mg 12/30/21 10:00 01/04/22 10:23 Aspirin 325 Mg Tab PO 325 mg QDAY BAUTISTA Administration Atorvastatin Calcium 80 mg 12/29/21 22:00 01/04/22 22:38 Atorvastatin 40 Mg Tab PO 80 mg QHS BAUTISTA Administration Clopidogrel Bisulfate 75 mg 12/30/21 10:00 01/04/22 10:24 Clopidogrel 75 Mg Tab PO 75 mg QDAY BAUTISTA Administration Dextrose 0 ml 12/28/21 20:32 Dextrose 10% *Hypoglycemia IV DIRECT PRN Hypoglycemia Protocol Doxycycline Hyclate 100 mg 01/02/22 22:00 01/04/22 22:38 Doxycycline 100 Mg Cap PO 100 mg BID BAUTISTA Administration Protocol Duloxetine HCl 120 mg 01/05/22 10:00 Duloxetine 30 Mg Cap PO QDAY BAUTISTA Famotidine 10 mg 12/29/21 22:00 01/04/22 22:38 Famotidine 10 Mg Tab PO 10 mg BID BATUISTA Administration Gabapentin 300 mg 12/29/21 22:00 01/04/22 22:38 Gabapentin 300 Mg Cap PO 300 mg BID BAUTISTA Administration Hydromorphone HCl 1 mg 01/02/22 09:30 01/02/22 23:23 Hydromorphone 1 Mg/1 Ml Inj IV 1 mg Q3H PRN Administration Pain, Moderate (4-6) Insulin Glargine 25 units 12/30/21 22:00 01/04/22 22:40 Insulin Glargine 100 Units/Ml SUB-Q 25 units QHS BAUTISTA Administration Insulin Human Lispro 0 unit 12/29/21 11:30 01/04/22 22:37 Insulin Lispro 100 Unit/Ml SUB-Q 3 unit ACHS BAUTISTA Administration Protocol Lisinopril 10 mg 12/30/21 10:00 01/04/22 10:26 Lisinopril 10 Mg Tab PO 10 mg QDAY BAUTISTA Administration Nicotine 14 mg 12/29/21 17:00 01/04/22 10:24 Nicotine 14 Mg/24 Hr Patch TD 14 mg QDAY BAUTISTA Administration Ondansetron HCl 4 mg 12/28/21 20:31 12/31/21 09:47 Ondansetron 4 Mg/2 Ml Inj IV 4 mg Q8H PRN Administration Nausea And Vomiting Oxycodone/Acetaminophen 1 tab 01/02/22 11:00 01/05/22 05:45 Oxycodone /Acetaminophen 5-325mg Tab PO 1 tab Q6HR BAUTISTA Administration Sodium Chloride 10 ml 12/28/21 22:00 01/04/22 22:38 Sodium Chloride 0.9% 10 Ml Flush Syringe IV 10 ml BID BAUTISTA Administration Sodium Chloride 10 ml 12/28/21 20:31 Sodium Chloride 0.9% 10 Ml Flush Syringe IV PRN PRN LINE FLUSH Sodium Chloride 500 ml 01/04/22 16:38 01/04/22 16:48 Sodium Chloride 0.9% Irr 500 Ml Bottle IR 500 ml DIRECT PRN Administration Wound Care Tramadol HCl 50 mg 12/28/21 14:22 01/02/22 05:07 Tramadol 50 Mg Tab PO 50 mg Q6H PRN Administration Pain , Severe (7-10) Trazodone HCl 50 mg 01/04/22 22:00 01/04/22 22:38 Trazodone 50 Mg Tab PO 50 mg QHS BAUTISTA Administration Nutrition/Malnutrition Assess - Dietary Evaluation Nutrition/Malnutrition Findings: Nutrition Notes Start: 01/04/22 09: 49 Freq: Status: Active Protocol: Document 01/04/22 09:49 ANDERSON (Rec: 01/04/22 10:04 ANDERSON [id number]) Nutrition Notes Need for Assessment generated from: LOS Initial or Follow up Assessment Current Diagnosis Diabetes,Sepsis,Hypertension, Heart Failure,Stroke Other Pertinent Diagnosis (R) leg necrotizing fasciitis s/p debridement, GERD, OA, Depression Current Diet GI soft Labs/Tests BG labs since admission: 362, 419, 280, 172, 190, 221 Pertinent Medications Reviewed Height 5 ft 6.93 in Weight 91.6 kg [place] Body Weight (kg) 61.20 BMI 31.6 Weight Status Obese Subjective/Other Information Pt screened for LOS. She has consumed 50% of recorded meals . D/C summary written yesterday. Percent of energy/protein needs met: 64% energy 43% pro Burn Absent Trauma Absent Skin Integrity/Comment (R) upper thigh wound Current % PO Fair (50-74%) Minimum of two criteria No #2 Nutrition Diagnosis Altered nutrition-related laboratory values Etiology hx of DM As Evidenced by Signs and Symptoms BG been elevated since admission and current diet order has no CHO restriction #1 Nutrition Diagnosis Inadequate protein-energy intake Etiology sepsis, depression As Evidenced by Signs and Symptoms current PO intake meeting <75% estimated energy and pro needs; pt also with surgical wound requiring wound vac Is patient on ventilator? No Is Patient Ambulatory and/or Out of Bed No REE-([facility]-confined to bed) 1796.136 Kcal/Kg value to use for calculation 17 Approximate Energy Requirements Using 1557 kcal/Kg Calculation Used for Recommendations Kcal/kg Additional Notes Pro needs 1.25-1.5g/kg adjBW: 96-115g/day Fluid needs 1ml/kcal Nutrition Intervention Change Diet Order: Add consistent CHO modifier to current diet order Add Supplement/Snack (indicate name/kcal Ensure High Protein BID /protein ) Provides kCal: 320 Provides Protein (gm) 32 Goal #1 PO intake of meals plus ONS to meet at least 75% energy and pro needs Goal #2 Wound healing Anticipated Discharge Needs: Continue high-protein/low-CHO ONS 1-2 times daily if PO intake remains suboptimal Follow-Up By: 01/09/22 Additional Comments F/U: intakes (meals/ONS)
[2022-01-05] MEDS: GABAPENTIN 300 MG CAP PO SCH ×2 (09:02→21:35)
[2022-01-05] MEDS: AMOXICILLIN/K CLAV 875/125MG TAB PO SCH ×2 (09:02→21:35)
[2022-01-05] MEDS: DULoxetine 30 MG CAP PO SCH (09:03)
[2022-01-05] MEDS: ASPIRIN 325 MG TAB PO SCH (09:03)
[2022-01-05] MEDS: FAMOTIDINE 10 MG TAB PO SCH ×2 (09:03→21:35)
[2022-01-05] MEDS: CLOPIDOGREL 75 MG TAB PO SCH (09:03)
[2022-01-05] MEDS: DOXYCYCLINE 100 MG CAP PO SCH ×2 (09:03→21:35)
[2022-01-05] MEDS: amLODIPine 5 MG TAB PO SCH (09:04)
[2022-01-05] MEDS: LISINOPRIL 10 MG TAB PO SCH (09:04)
[2022-01-05] MEDS: INSULIN LISPRO 100 UNIT/ML SUB-Q SCH ×4 (09:05→21:36)
[2022-01-05] MEDS: NICOTINE 14 MG/24 HR PATCH TD SCH (09:07)
--- NOTE | 2022-01-05 12:05 | Progress Note ---
Subjective - Reason for Consult Consult date: 01/05/22 Reason for consult: SI - Chief Complaint Chief complaint: The patient was seen today. She is still endorses suicidal thoughts, due to the fact that she doesn't want to be a burden on anyone. She verbalizes feeling depressed due to this. I also spoke to the patient's daughter. She says she's unable to care for her mother without assistance. She says she would need home health in order to get her mother home. The patient agrees with her daughter, that she needs home health. She says she has an aneurysm and is in poor health. Will consult case management, as the living situation is a source of the patient's depression and suicidal thoughts. REVIEW OF SYSTEMS Constitutional: Negative for weight loss ENT: Negative for stridor Respiratory: Negative for cough or hemoptysis All other systems reviewed and are negative MENTAL STATUS EXAMINATION General Appearance and Behavior: Age appropriate, good hygiene, wearing appropriate clothes, fair eye contact, cooperative polite with questioning. Cooperation: Participating/engaged Psychomotor Behavior: unremarkable and within normal limits Mood: depressed Affect and affective range: congruent with mood Thought Process: Goal oriented Thought Content: Reality oriented Speech: Normal volume, Regular rate and rhythm Suicidal Ideation: yes, but due to living situation Homicidal Ideation: Denies Hallucinations: Visual Impulse Control: Normal Insight and Judgment:Limited insight and good judgment Memory: Normal Attention: Distractible Orientation: Alert, oriented x 2 Assessment and Plan (1) Major depressive disorder Current Visit: Yes Status: Acute RECOMMENDATIONS d/c 1013 Please have case management see this patient and set up home services. Living situation is behind the patient's thoughts and feeling. The daughter is also in very poor health. Cymbalta 120mg po daily Trazodone 50mg po qhs Risks, benefits and alternatives of medications discussed with the patient, questions answered and consent obtained from patient. PSYCHOTHERAPY: Supportive psychotherapy provided MEDICAL: Per primary team DELIRIUM PRECAUTIONS: Please re-orient patient frequently, keep lights on during the day, and minimize benzodiazepines and opiates as these medications could worsen patient's confusion. SKIRT TRIMMER: Per medical team DISPOSITION: Do not recommend acute inpatient psychiatric hospitalization at this time. Please have case management assist this patient. The daughter states she can not take care of the patient without home health services. The daughter is also in very poor health FOLLOW-UP: sign off. Thank you for the consult. Please contact with any questions and/or concerns. Case staffed by Dr. Mcelroy Mental Status Exam - Vital signs Last Vital Signs Temp 98.8 F 01/05/22 08:58 Pulse 86 01/05/22 09:04 Resp 18 01/05/22 08:58 BP 108/62 01/05/22 09:04 Pulse Ox 97 01/05/22 08:58
--- NOTE | 2022-01-05 18:25 | Progress Note ---
Assessment and Plan 66 YO Female with CVA on DAPT, HTN, DM, Diastolic CHF, GERD, Nicotine Dependence, OA, Debility presents to ED for evaluation. Patient states that she has experienced swelling, redness, and pain to her right thigh area over the past 3 days with persistent and worsening symptoms over the same timeframe. Patient states the pain is 10/10, constant, worsened with movement, and relieved with nonmovement. Patient also reports feeling depressed due to her current living conditions. Patient reports feeling suicidal and considered drawing up insulin and taking a big dose in an attempt to take her own life. Patient states that she is unsatisfied with her current family response to her needs. EMS was notified by family members due to the aforementioned symptoms and upon arrival the patient was found to be in distress and subsequent transported to [facility] for further care and evaluation of the aforementioned symptoms. Patient was found to have fever with a temperature of 101 F. Patient was also found to have cellulitis to the right thigh and perineal area complicated by sepsis. Patient admitted to medical floor and initiated on sepsis protocol. Mental health team consulted in ED. patient denies chills, chest pain, palpitation, productive cough, skin rash, recent contact, known exposure to COVID-19. Patient has history of smoking 1 pack a day x 30 years. Counseled to stop smoking. Patient has history of alcohol and drug abuse. 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 Allergic to pencillin. Patient Obese, awake. Patient resting on room air. O2 saturation 98%. No acute respiratory distress. Patient afebrile. Has leukocytosis. Blood pressure 120/73 , Pulse 89 , Respirations 18. Chest xray done 01/01/22 reported No acute findings. There is no evidence of pneumonia. Patient is started on PO antibiotics Augmentin and vibramycin. I was told patient tolerating Augmentin with out allergic reaction. Famotidine, Plavix, Albuterol inhaler and Nicotine patch. - Patient Problems (1) Cellulitis of right lower extremity Current Visit: Yes Status: Acute Plan to address problem: Patient was on meropenum and vancomycin. Patient is started on PO antibiotics Augmentin and vibramycin. I was told patient tolerating Augmentin with out allergic reaction. (2) Diabetes Current Visit: Yes Status: Acute Plan to address problem: Management as per primary care. (3) Diastolic CHF Current Visit: Yes Status: Acute Qualifiers: Heart failure chronicity: chronic Qualified Code(s): I50.32 - Chronic diastolic (congestive) heart failure Plan to address problem: Management as per cardiology. (4) GERD (gastroesophageal reflux disease) Current Visit: Yes Status: Acute Qualifiers: Esophagitis presence: without esophagitis Qualified Code(s): K21.9 - Gastro-esophageal reflux disease without esophagitis Plan to address problem: On Famotidine. (5) Hypertension Current Visit: Yes Status: Acute Qualifiers: Hypertension type: primary hypertension Qualified Code(s): I10 - Essential (primary) hypertension Plan to address problem: Management as per primary care. (6) Sepsis Current Visit: Yes Status: Acute Plan to address problem: Patient was on Meropenum and vancomycin. (7) Nicotine dependence Current Visit: No Status: Acute Qualifiers: Nicotine product type: cigarettes Substance use status: in withdrawal Qualified Code(s): F17.213 - Nicotine dependence, cigarettes, with withdrawal Plan to address problem: Counseled to stop smoking. (8) Obesity (BMI 30-39.9) Current Visit: Yes Status: Acute Plan to address problem: Recommend to loose weight. Recommend sleep study as out patient. Subjective Date of service: 01/05/22 Principal diagnosis: Cellulitis (Nec Faciitis); DM II; Morbid obesity ; Tobacco abuse; Acidosis Interval history: 66 YO Female with CVA on DAPT, HTN, DM, Diastolic CHF, GERD, Nicotine Dependence, OA, Debility presents to ED for evaluation. Patient states that she has experienced swelling, redness, and pain to her right thigh area over the past 3 days with persistent and worsening symptoms over the same timeframe. Patient states the pain is 10/10, constant, worsened with movement, and relieved with nonmovement. Patient also reports feeling depressed due to her current living conditions. Patient reports feeling suicidal and considered drawing up insulin and taking a big dose in an attempt to take her own life. Patient states that she is unsatisfied with her current family response to her needs. EMS was notified by family members due to the aforementioned symptoms and upon arrival the patient was found to be in distress and subsequent transported to [facility] for further care and evaluation of the aforementioned symptoms. Patient was found to have fever with a temperature of 101 F. Patient was also found to have cellulitis to the right thigh and perineal area complicated by sepsis. Patient admitted to medical floor and initiated on sepsis protocol. Mental health team consulted in ED. patient denies chills, chest pain, palpitation, productive cough, skin rash, recent contact, known exposure to COVID-19. Patient has history of smoking 1 pack a day x 30 years. Counseled to stop smoking. Patient has history of alcohol and drug abuse. 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 Allergic to pencillin. Patient Obese, awake. Patient resting on room air. O2 saturation 98%. No acute respiratory distress. Patient afebrile. Has leukocytosis. Blood pressure 120/73 , Pulse 89 , Respirations 18. Chest xray done 01/01/22 reported No acute findings. There is no evidence of pneumonia. Patient is started on PO antibiotics Augmentin and vibramycin. I was told patient tolerating Augmentin with out allergic reaction. Famotidine, Plavix, Albuterol inhaler and Nicotine patch. Objective Vital Signs - 12hr 01/05/22 01/05/22 01/05/22 08:58 09:04 10:59 Temperature 98.8 F 98.6 F Pulse Rate 85 86 84 Respiratory 18 18 Rate Blood Pressure 108/62 108/62 139/83 O2 Sat by Pulse 97 96 Oximetry Constitutional: no acute distress, alert Eyes: non-icteric ENT: oropharynx moist Neck: supple, no lymphadenopathy Effort: mildly labored Ascultation: Bilateral: diminished breath sounds Percussion: Bilateral: not dull Cardiovascular: regular rate and rhythm Gastrointestinal: normoactive bowel sounds, soft, non-tender Integumentary: normal Extremities: edema, other (Cellulitis, right thigh.) Neurologic: non-focal exam, pupils equal and round, CN II-XII normal Psychiatric: other (flat affect) CBC and BMP: 01/03/22 04:56 01/03/22 04:56 ABG, PT/INR, D-dimer: ABG ABG pH 7.413 pH Units (7.350-7.450) 01/01/22 10:48 ABG pCO2 56.6 mm Hg 01/01/22 10:48 ABG pO2 54.5 mm Hg (80.0-90.0) L 01/01/22 10:48 ABG O2 Saturation 89.0 % (95.0-99.0) L 01/01/22 10:48 Abnormal lab findings: Abnormal Labs 12/28/21 12/28/21 12/28/21 12:49 12:49 12:49 WBC 34.9 H Hgb 14.7 H Hct 47.7 H MCH MCHC Plt Count Seg Neuts % (Manual) 90.0 H Lymphocytes % (Manual) 0 L Monocytes % (Manual) Seg Neutrophils # Man 31.4 H Lymphocytes # (Manual) 0.0 L Monocytes # (Manual) 1.4 H ABG pO2 ABG HCO3 ABG O2 Saturation ABG Base Excess ABG Hemoglobin Oxyhemoglobin Potassium Carbon Dioxide Glucose 362 H POC Glucose Lactic Acid Calcium Alkaline Phosphatase 269 H Total Protein Albumin 3.1 L Ur Specific [place] Salicylates < 0.3 L Acetaminophen 12/28/21 12/28/21 12/28/21 12:49 19:00 19:04 WBC Hgb Hct MCH MCHC Plt Count Seg Neuts % (Manual) Lymphocytes % (Manual) Monocytes % (Manual) Seg Neutrophils # Man Lymphocytes # (Manual) Monocytes # (Manual) ABG pO2 ABG HCO3 ABG O2 Saturation ABG Base Excess ABG Hemoglobin Oxyhemoglobin Potassium Carbon Dioxide Glucose POC Glucose Lactic Acid 3.30 H* Calcium Alkaline Phosphatase Total Protein Albumin Ur Specific [place] 1.043 H Salicylates Acetaminophen 5.0 L 12/28/21 12/28/21 12/28/21 20:41 20:56 20:56 WBC Hgb Hct MCH MCHC Plt Count Seg Neuts % (Manual) Lymphocytes % (Manual) Monocytes % (Manual) Seg Neutrophils # Man Lymphocytes # (Manual) Monocytes # (Manual) ABG pO2 ABG HCO3 ABG O2 Saturation ABG Base Excess ABG Hemoglobin Oxyhemoglobin Potassium Carbon Dioxide 20 L Glucose 419 H POC Glucose 399 H Lactic Acid 2.80 H* Calcium 8.1 L Alkaline Phosphatase Total Protein Albumin Ur Specific [place] Salicylates Acetaminophen 12/28/21 12/29/21 12/29/21 22:00 00:16 04:47 WBC 30.7 H Hgb Hct MCH 33 H MCHC 35 H Plt Count Seg Neuts % (Manual) 94.0 H Lymphocytes % (Manual) 2.0 L Monocytes % (Manual) Seg Neutrophils # Man 28.9 H Lymphocytes # (Manual) 0.6 L Monocytes # (Manual) ABG pO2 ABG HCO3 ABG O2 Saturation ABG Base Excess ABG Hemoglobin Oxyhemoglobin Potassium Carbon Dioxide Glucose POC Glucose 358 H 257 H Lactic Acid Calcium Alkaline Phosphatase Total Protein Albumin Ur Specific [place] Salicylates Acetaminophen 12/29/21 12/29/21 12/29/21 04:47 11:25 17:14 WBC Hgb Hct MCH MCHC Plt Count Seg Neuts % (Manual) Lymphocytes % (Manual) Monocytes % (Manual) Seg Neutrophils # Man Lymphocytes # (Manual) Monocytes # (Manual) ABG pO2 ABG HCO3 ABG O2 Saturation ABG Base Excess ABG Hemoglobin Oxyhemoglobin Potassium Carbon Dioxide Glucose 280 H POC Glucose 321 H 136 H Lactic Acid Calcium 8.0 L Alkaline Phosphatase 237 H Total Protein 6.0 L Albumin 2.3 L Ur Specific [place] Salicylates Acetaminophen 12/29/21 12/30/21 12/30/21 20:59 04:42 04:42 WBC 19.9 H Hgb Hct MCH MCHC Plt Count Seg Neuts % (Manual) Lymphocytes % (Manual) Monocytes % (Manual) Seg Neutrophils # Man Lymphocytes # (Manual) Monocytes # (Manual) ABG pO2 ABG HCO3 ABG O2 Saturation ABG Base Excess ABG Hemoglobin Oxyhemoglobin Potassium 3.2 L Carbon Dioxide Glucose 172 H POC Glucose 150 H Lactic Acid Calcium 8.3 L Alkaline Phosphatase Total Protein Albumin Ur Specific [place] Salicylates Acetaminophen 12/30/21 12/30/21 12/30/21 08:14 11:23 16:25 WBC Hgb Hct MCH MCHC Plt Count Seg Neuts % (Manual) Lymphocytes % (Manual) Monocytes % (Manual) Seg Neutrophils # Man Lymphocytes # (Manual) Monocytes # (Manual) ABG pO2 ABG HCO3 ABG O2 Saturation ABG Base Excess ABG Hemoglobin Oxyhemoglobin Potassium Carbon Dioxide Glucose POC Glucose 194 H 245 H 209 H Lactic Acid Calcium Alkaline Phosphatase Total Protein Albumin Ur Specific [place] Salicylates Acetaminophen 12/30/21 12/31/21 12/31/21 21:27 07:31 11:46 WBC Hgb Hct MCH MCHC Plt Count Seg Neuts % (Manual) Lymphocytes % (Manual) Monocytes % (Manual) Seg Neutrophils # Man Lymphocytes # (Manual) Monocytes # (Manual) ABG pO2 ABG HCO3 ABG O2 Saturation ABG Base Excess ABG Hemoglobin Oxyhemoglobin Potassium Carbon Dioxide Glucose POC Glucose 169 H 164 H 172 H Lactic Acid Calcium Alkaline Phosphatase Total Protein Albumin Ur Specific [place] Salicylates Acetaminophen 0212/31/21 01/01/22 15:26 21:44 07:38 WBC Hgb Hct MCH MCHC Plt Count Seg Neuts % (Manual) Lymphocytes % (Manual) Monocytes % (Manual) Seg Neutrophils # Man Lymphocytes # (Manual) Monocytes # (Manual) ABG pO2 ABG HCO3 ABG O2 Saturation ABG Base Excess ABG Hemoglobin Oxyhemoglobin Potassium Carbon Dioxide Glucose POC Glucose 154 H 272 H 143 H Lactic Acid Calcium Alkaline Phosphatase Total Protein Albumin Ur Specific [place] Salicylates Acetaminophen 01/01/22 01/01/22 01/01/22 10:48 12:02 16:51 WBC Hgb Hct MCH MCHC Plt Count Seg Neuts % (Manual) Lymphocytes % (Manual) Monocytes % (Manual) Seg Neutrophils # Man Lymphocytes # (Manual) Monocytes # (Manual) ABG pO2 54.5 L ABG HCO3 35.3 H ABG O2 Saturation 89.0 L ABG Base Excess 9.1 H ABG Hemoglobin 11.5 L Oxyhemoglobin 87.4 L Potassium Carbon Dioxide Glucose POC Glucose 256 H 67 L Lactic Acid Calcium Alkaline Phosphatase Total Protein Albumin Ur Specific [place] Salicylates Acetaminophen 01/01/22 01/01/22 01/02/22 17:47 21:36 07:25 WBC 13.4 H Hgb Hct MCH MCHC Plt Count Seg Neuts % (Manual) 74.0 H Lymphocytes % (Manual) 13.0 L Monocytes % (Manual) 10.0 H Seg Neutrophils # Man 9.9 H Lymphocytes # (Manual) Monocytes # (Manual) 1.3 H ABG pO2 ABG HCO3 ABG O2 Saturation ABG Base Excess ABG Hemoglobin Oxyhemoglobin Potassium Carbon Dioxide Glucose POC Glucose 148 H 278 H Lactic Acid Calcium Alkaline Phosphatase Total Protein Albumin Ur Specific [place] Salicylates Acetaminophen 01/02/22 01/02/22 01/02/22 07:25 07:47 11:07 WBC Hgb Hct MCH MCHC Plt Count Seg Neuts % (Manual) Lymphocytes % (Manual) Monocytes % (Manual) Seg Neutrophils # Man Lymphocytes # (Manual) Monocytes # (Manual) ABG pO2 ABG HCO3 ABG O2 Saturation ABG Base Excess ABG Hemoglobin Oxyhemoglobin Potassium Carbon Dioxide 32 H Glucose 190 H POC Glucose 189 H 256 H Lactic Acid Calcium Alkaline Phosphatase Total Protein Albumin Ur Specific [place] Salicylates Acetaminophen 01/02/22 01/02/22 01/03/22 15:30 21:16 04:56 WBC 12.2 H Hgb Hct MCH MCHC Plt Count 463 H Seg Neuts % (Manual) 72.0 H Lymphocytes % (Manual) Monocytes % (Manual) Seg Neutrophils # Man 8.8 H Lymphocytes # (Manual) Monocytes # (Manual) ABG pO2 ABG HCO3 ABG O2 Saturation ABG Base Excess ABG Hemoglobin Oxyhemoglobin Potassium Carbon Dioxide Glucose POC Glucose 224 H 219 H Lactic Acid Calcium Alkaline Phosphatase Total Protein Albumin Ur Specific [place] Salicylates Acetaminophen 01/03/22 01/03/22 01/03/22 04:56 07:13 11:28 WBC Hgb Hct MCH MCHC Plt Count Seg Neuts % (Manual) Lymphocytes % (Manual) Monocytes % (Manual) Seg Neutrophils # Man Lymphocytes # (Manual) Monocytes # (Manual) ABG pO2 ABG HCO3 ABG O2 Saturation ABG Base Excess ABG Hemoglobin Oxyhemoglobin Potassium Carbon Dioxide 33 H Glucose 221 H POC Glucose 269 H 215 H Lactic Acid Calcium Alkaline Phosphatase Total Protein Albumin Ur Specific [place] Salicylates Acetaminophen 01/03/22 01/03/22 01/04/22 15:55 21:49 07:33 WBC Hgb Hct MCH MCHC Plt Count Seg Neuts % (Manual) Lymphocytes % (Manual) Monocytes % (Manual) Seg Neutrophils # Man Lymphocytes # (Manual) Monocytes # (Manual) ABG pO2 ABG HCO3 ABG O2 Saturation ABG Base Excess ABG Hemoglobin Oxyhemoglobin Potassium Carbon Dioxide Glucose POC Glucose 168 H 154 H 158 H Lactic Acid Calcium Alkaline Phosphatase Total Protein Albumin Ur Specific [place] Salicylates Acetaminophen 01/04/22 01/04/22 01/04/22 11:47 16:20 21:13 WBC Hgb Hct MCH MCHC Plt Count Seg Neuts % (Manual) Lymphocytes % (Manual) Monocytes % (Manual) Seg Neutrophils # Man Lymphocytes # (Manual) Monocytes # (Manual) ABG pO2 ABG HCO3 ABG O2 Saturation ABG Base Excess ABG Hemoglobin Oxyhemoglobin Potassium Carbon Dioxide Glucose POC Glucose 234 H 217 H 191 H Lactic Acid Calcium Alkaline Phosphatase Total Protein Albumin Ur Specific [place] Salicylates Acetaminophen 01/05/22 01/05/22 01/05/22 07:28 10:55 16:03 WBC Hgb Hct MCH MCHC Plt Count Seg Neuts % (Manual) Lymphocytes % (Manual) Monocytes % (Manual) Seg Neutrophils # Man Lymphocytes # (Manual) Monocytes # (Manual) ABG pO2 ABG HCO3 ABG O2 Saturation ABG Base Excess ABG Hemoglobin Oxyhemoglobin Potassium Carbon Dioxide Glucose POC Glucose 198 H 253 H 202 H Lactic Acid Calcium Alkaline Phosphatase Total Protein Albumin Ur Specific [place] Salicylates Acetaminophen Allied health notes reviewed: nursing
[2022-01-05] MEDS: HYDROmorphone 1 MG/1 ML INJ IV PRN (21:31)
[2022-01-05] MEDS: INSULIN GLARGINE 100 UNITS/ML SUB-Q SCH (21:34)
[2022-01-05] MEDS: traZODone 50 MG TAB PO SCH (21:36)
[2022-01-06] MEDS: oxyCODONE /ACETAMINOPHEN 5-325MG TAB PO SCH ×5 (00:03→23:58)
--- NOTE | 2022-01-06 09:20 | Progress Note ---
Assessment and Plan Assessment and plan: 66-year-old female with known past medical history of CVA on DAPT, HTN, DM, Diastolic CHF, GERD, Nicotine Dependence, OA, and Debility admitted for sepsis 2/2 necrotizing fasciitis of the right leg s/p wide excisional debridement by General Surgery. #Suicidal ideation [address] [facility] psych consulted; appreciate recs Pending acute psychiatric inpatient hospitalization #Sepsisresolved #Leukocytosis-resolved #Cellulitis of Right Lower Extremity #Necrotizing Fasciitis of the Right Leg status post wide excisional debridement #Lactic Acidosis- resolved 12/28 s/p wide excisional debridement; repeated on 12/31/2021 General surgery consulted; appreciate recs Pulmonology consulted; appreciate recs Infectious disease consulted; appreciate recs Discontinued clindamycin. Continue meropenem 500 mg every 6 hours and starting vancomycin 1 g every 12 hours Leukocytosis downtrending, remains afebrile Blood culture NG x 48hrs #Insulin dependent type II diabetes mellitus with hyperglycemia - hemoglobin A1c: pending - home regimen: NPH 70/30 15 units twice daily - current regimen: Lantus 25 units nightly - blood glucose goal 140-180 while inpatient - continue to monitor #Hypertension #Hyperlipidemia - home medications: Amlodipine 5 mg daily, atorvastatin 80 mg daily - current medications: Amlodipine 5 mg daily, Plavix 75 mg daily, lisinopril 10 mg daily - SBP goal <160 and DBP goal <90 while inpatient - continue to monitor #Hypokalemiaresolved - will replete and monitor #Nicotine Dependence - Nicotine patch added - Smoking cessation counseling, supportive care, behavior change counseling, +15 minutes. #Debility - PT/OT consulted; appreciate recs #Advanced care planning -Disease education conducted, care plan discussed, diagnoses discussed, prognosis discussed, and patient acknowledges understanding with care plan -Time: +30 min #Discharge planning - Patient is acute psychiatric inpatient hospitalization. Patient is medically cleared for discharge. - Case management has been made aware. Disposition Plan: Pending inpatient psych dispo Total Time Spent with Patient (Minutes): 30 minutes History Interval history: No acute events overnight. Hospitalist Physical - Constitutional Vitals: Temp Pulse Resp BP Pulse Ox 98.1 F 79 18 121/69 100 01/06/22 03:49 01/06/22 03:49 01/06/22 05:51 01/06/22 03:49 01/06/22 03:49 General appearance: Present: no acute distress, well-nourished, obese - EENT Eyes: Present: PERRL, EOM intact ENT: hearing intact, clear oral mucosa, poor dentition - Neck Neck: Present: supple, normal ROM - Respiratory Respiratory effort: normal Respiratory: bilateral: CTA - Cardiovascular Rhythm: regular Heart Sounds: Present: S1 & S2 - Extremities Extremities: no ischemia, pulses intact, pulses symmetrical, normal temperature, normal color, abnormal (Wrapped right anterior thigh) Peripheral Pulses: within normal limits - Abdominal General gastrointestinal: soft, non-tender, non-distended, normal bowel sounds - Integumentary Integumentary: Present: clear, warm, dry - Psychiatric Psychiatric: appropriate mood/affect, cooperative, depressed - Neurologic Neurologic: CNII-XII intact, moves all extremities - Allied Health Allied health notes reviewed: nursing Results - Labs CBC & Chem 7: 01/03/22 04:56 01/03/22 04:56 Labs: Laboratory Last Values WBC 12.2 K/mm3 (4.5-11.0) H 01/03/22 04:56 RBC 3.85 M/mm3 (3.65-5.03) 01/03/22 04:56 Hgb 11.5 gm/dl (10.1-14.3) 01/03/22 04:56 Hct 36.4 % (30.3-42.9) 01/03/22 04:56 MCV 94 fl (79-97) 01/03/22 04:56 MCH 30 pg (28-32) 01/03/22 04:56 MCHC 32 % (30-34) 01/03/22 04:56 RDW 14.4 % (13.2-15.2) 01/03/22 04:56 Plt Count 463 K/mm3 (140-440) H 01/03/22 04:56 Add Manual Diff Complete 01/03/22 04:56 Total Counted 100 01/03/22 04:56 Seg Neutrophils % Manager [place] 12/28/21 12:49 Seg Neuts % (Manual) 72.0 % (40.0-70.0) H 01/03/22 04:56 Band Neutrophils % 0 % 01/03/22 04:56 Lymphocytes % (Manual) 25.0 % (13.4-35.0) 01/03/22 04:56 Reactive Lymphs % (Man) 0 % 01/03/22 04:56 Monocytes % (Manual) 3.0 % (0.0-7.3) 01/03/22 04:56 Eosinophils % (Manual) 0 % (0.0-4.3) 01/03/22 04:56 Basophils % (Manual) 0 % (0.0-1.8) 01/03/22 04:56 Metamyelocytes % 0 % 01/03/22 04:56 Myelocytes % 0 % 01/03/22 04:56 Promyelocytes % 0 % 01/03/22 04:56 Blast Cells % 0 % 01/03/22 04:56 Nucleated RBC % Not Reportable 01/03/22 04:56 Seg Neutrophils # Man 8.8 K/mm3 (1.8-7.7) H 01/03/22 04:56 Band Neutrophils # 0.0 K/mm3 01/03/22 04:56 Lymphocytes # (Manual) 3.1 K/mm3 (1.2-5.4) 01/03/22 04:56 Abs React Lymphs (Man) 0.0 K/mm3 01/03/22 04:56 Monocytes # (Manual) 0.4 K/mm3 (0.0-0.8) 01/03/22 04:56 Eosinophils # (Manual) 0.0 K/mm3 (0.0-0.4) 01/03/22 04:56 Basophils # (Manual) 0.0 K/mm3 (0.0-0.1) 01/03/22 04:56 Metamyelocytes # 0.0 K/mm3 01/03/22 04:56 Myelocytes # 0.0 K/mm3 01/03/22 04:56 Promyelocytes # 0.0 K/mm3 01/03/22 04:56 Blast Cells # 0.0 K/mm3 01/03/22 04:56 Pathologist Review 12/28/21 12:49 WBC Morphology Not Reportable 01/03/22 04:56 Hypersegmented Neuts Not Reportable 01/03/22 04:56 Hyposegmented Neuts Not Reportable 01/03/22 04:56 Hypogranular Neuts Not Reportable 01/03/22 04:56 Smudge Cells Not Reportable 01/03/22 04:56 Toxic Granulation Not Reportable 01/03/22 04:56 Toxic Vacuolation Not Reportable 01/03/22 04:56 Dohle Bodies Not Reportable 01/03/22 04:56 Pelger-Huet Anomaly Not Reportable 01/03/22 04:56 Kennedi Rods Not Reportable 01/03/22 04:56 Platelet Estimate Consistent w auto 01/03/22 04:56 Clumped Platelets Not Reportable 01/03/22 04:56 Plt Clumps, EDTA Not Reportable 01/03/22 04:56 Large Platelets Not Reportable 01/03/22 04:56 Giant Platelets Not Reportable 01/03/22 04:56 Platelet Satelliting Not Reportable 01/03/22 04:56 Plt Morphology Comment Not Reportable 01/03/22 04:56 RBC Morphology Normal 01/03/22 04:56 Dimorphic RBCs Not Reportable 01/03/22 04:56 Polychromasia Not Reportable 01/03/22 04:56 Hypochromasia Not Reportable 01/03/22 04:56 Poikilocytosis Not Reportable 01/03/22 04:56 Anisocytosis Not Reportable 01/03/22 04:56 Microcytosis Not Reportable 01/03/22 04:56 Macrocytosis Not Reportable 01/03/22 04:56 Spherocytes Not Reportable 01/03/22 04:56 Pappenheimer Bodies Not Reportable 01/03/22 04:56 Sickle Cells Not Reportable 01/03/22 04:56 Target Cells Not Reportable 01/03/22 04:56 Tear Drop Cells Not Reportable 01/03/22 04:56 Ovalocytes Not Reportable 01/03/22 04:56 Helmet Cells Not Reportable 01/03/22 04:56 Freeman-[place] Bodies Not Reportable 01/03/22 04:56 [place] Rings Not Reportable 01/03/22 04:56 Epifanio Cells Not Reportable 01/03/22 04:56 Bite Cells Not Reportable 01/03/22 04:56 Crenated Cell Not Reportable 01/03/22 04:56 Elliptocytes Not Reportable 01/03/22 04:56 Acanthocytes (Spur) Not Reportable 01/03/22 04:56 Rouleaux Not Reportable 01/03/22 04:56 Hemoglobin C Crystals Not Reportable 01/03/22 04:56 Schistocytes Not Reportable 01/03/22 04:56 Malaria parasites Not Reportable 01/03/22 04:56 [place] Bodies Not Reportable 01/03/22 04:56 Hem Pathologist Commnt No 01/03/22 04:56 ABG pH 7.413 pH Units (7.350-7.450) 01/01/22 10:48 ABG pCO2 56.6 mm Hg 01/01/22 10:48 ABG pO2 54.5 mm Hg (80.0-90.0) L 01/01/22 10:48 ABG HCO3 35.3 mmol/L (20.0-26.0) H 01/01/22 10:48 ABG O2 Saturation 89.0 % (95.0-99.0) L 01/01/22 10:48 ABG O2 Content 14.1 (0.0-44) 01/01/22 10:48 ABG Base Excess 9.1 mmol/L (-2.0-3.0) H 01/01/22 10:48 ABG Hemoglobin 11.5 gm/dl (12.0-16.0) L 01/01/22 10:48 ABG Carboxyhemoglobin 1.2 % (0.0-5.0) 01/01/22 10:48 ABG Methemoglobin 0.5 % (0.0-1.5) 01/01/22 10:48 Oxyhemoglobin 87.4 % (95.0-99.0) L 01/01/22 10:48 FiO2 21 % 01/01/22 10:48 Sodium 143 mmol/L (137-145) 01/03/22 04:56 Potassium 3.7 mmol/L (3.6-5.0) 01/03/22 04:56 Chloride 101.2 mmol/L (98-107) 01/03/22 04:56 Carbon Dioxide 33 mmol/L (22-30) H 01/03/22 04:56 Anion Gap 13 mmol/L 01/03/22 04:56 BUN 12 mg/dL (7-17) 01/03/22 04:56 Creatinine 0.7 mg/dL (0.6-1.2) 01/03/22 04:56 Estimated GFR > 60 ml/min 01/03/22 04:56 BUN/Creatinine Ratio 17 % 01/03/22 04:56 Glucose 221 mg/dL (65-100) H 01/03/22 04:56 POC Glucose 158 mg/dL (70-105) H 01/06/22 07:12 Lactic Acid 1.60 mmol/L (0.7-2.0) 12/29/21 13:08 Calcium 8.5 mg/dL (8.4-10.2) 01/03/22 04:56 Total Bilirubin 0.60 mg/dL (0.1-1.2) 12/29/21 04:47 AST 38 units/L (5-40) 12/29/21 04:47 ALT 31 units/L (7-56) 12/29/21 04:47 Alkaline Phosphatase 237 units/L (35-129) H 12/29/21 04:47 Total Protein 6.0 g/dL (6.3-8.2) L 12/29/21 04:47 Albumin 2.3 g/dL (3.9-5) L 12/29/21 04:47 Albumin/Globulin Ratio 0.6 % 12/29/21 04:47 Urine Color Yellow (Yellow) 12/28/21 19:00 Urine Turbidity Clear (Clear) 12/28/21 19:00 Urine pH 6.0 (5.0-7.0) 12/28/21 19:00 Ur Specific [place] 1.043 (1.003-1.030) H 12/28/21 19:00 Urine Protein 30 mg/dl mg/dL (Negative) 12/28/21 19:00 Urine Glucose (UA) >=500 mg/dL (Negative) 12/28/21 19:00 Urine Ketones Neg mg/dL (Negative) 12/28/21 19:00 Urine Blood Neg (Negative) 12/28/21 19:00 Urine Nitrite Neg (Negative) 12/28/21 19:00 Urine Bilirubin Neg (Negative) 12/28/21 19:00 Urine Urobilinogen 4.0 mg/dL (<2.0) 12/28/21 19:00 Ur Leukocyte Esterase Neg (Negative) 12/28/21 19:00 Urine WBC (Auto) 6.0 /HPF (0.0-6.0) 12/28/21 19:00 Urine RBC (Auto) 14.0 /HPF (0.0-6.0) 12/28/21 19:00 U Epithel Cells (Auto) 2.0 /HPF (0-13.0) 12/28/21 19:00 Urine Bacteria (Auto) 1+ /HPF (Negative) 12/28/21 19:00 Urine Mucus Few /HPF 12/28/21 19:00 Urine Yeast (Budding) 1+ /HPF 12/28/21 19:00 Nasal Screen MRSA (PCR) Negative (Negative) 12/29/21 14:30 Vancomycin Trough 6.1 ug/mL (5.0-20.0) 01/03/22 04:56 Salicylates < 0.3 mg/dL (2.8-20.0) L 12/28/21 12:49 Urine Opiates Screen Presumptive negative 12/28/21 19:00 Urine Methadone Screen Presumptive negative 12/28/21 19:00 Acetaminophen 5.0 ug/mL (10.0-30.0) L 12/28/21 12:49 Ur Barbiturates Screen Presumptive negative 12/28/21 19:00 Ur Phencyclidine Scrn Presumptive negative 12/28/21 19:00 Ur Amphetamines Screen Presumptive negative 12/28/21 19:00 U Benzodiazepines Scrn Presumptive negative 12/28/21 19:00 Urine Cocaine Screen Presumptive negative 12/28/21 19:00 U Marijuana (THC) Screen Presumptive positive 12/28/21 19:00 Drugs of Abuse Note Disclamer 12/28/21 19:00 Plasma/Serum Alcohol < 0.01 % (0-0.07) 12/28/21 12:49 Coronavirus (PCR) Negative (Negative) 01/04/22 Unknown Blood Type A POSITIVE 12/28/21 15:20 Antibody Screen Negative 12/28/21 15:20 Microbiology: Microbiology 12/28/21 Unknown Leg - Right Anaerobic Culture - Preliminary Enriquez/IV: Voiding Method External Female Catheter Active Medications - Current Medications Current Medications: Generic Name Dose Route Start Last Admin Trade Name Freq PRN Reason Stop Dose Admin Acetaminophen 650 mg 12/28/21 20:33 Acetaminophen 325 Mg Tab PO Q8H PRN Pain, Mild (1-3) Al Hydrox/Mg Hydrox/Simethicone 30 ml 12/30/21 17:30 Alum-Mag Hydroxide-Simethicone [id number]/5ml Oral Liqd 30 Ml PO Q4H PRN Indigestion Albuterol 2.5 mg 12/28/21 20:31 Albuterol 2.5 Mg/3 Ml Nebu IH Q4HRT PRN Shortness Of Breath Amlodipine Besylate 5 mg 12/30/21 10:00 01/05/22 09:04 Amlodipine 5 Mg Tab PO 5 mg QDAY BAUTISTA Administration Amoxicillin/Clavulanate Potassium 1 each 01/02/22 22:00 01/05/22 21:35 Amoxicillin/K Clav 875/125mg Tab PO 01/11/22 10:01 1 each Q12HR BAUTISTA Administration Protocol Aspirin 325 mg 12/30/21 10:00 01/05/22 09:03 Aspirin 325 Mg Tab PO 325 mg QDAY BAUTISTA Administration Atorvastatin Calcium 80 mg 12/29/21 22:00 01/05/22 21:35 Atorvastatin 40 Mg Tab PO 80 mg QHS BAUTISTA Administration Clopidogrel Bisulfate 75 mg 12/30/21 10:00 01/05/22 09:03 Clopidogrel 75 Mg Tab PO 75 mg QDAY BAUTISTA Administration Dextrose 0 ml 12/28/21 20:32 Dextrose 10% *Hypoglycemia IV DIRECT PRN Hypoglycemia Protocol Doxycycline Hyclate 100 mg 01/02/22 22:00 01/05/22 21:35 Doxycycline 100 Mg Cap PO 01/11/22 10:01 100 mg BID BAUTISTA Administration Protocol Duloxetine HCl 120 mg 01/05/22 10:00 01/05/22 09:03 Duloxetine 30 Mg Cap PO 120 mg QDAY BAUTISTA Administration Famotidine 10 mg 12/29/21 22:00 01/05/22 21:35 Famotidine 10 Mg Tab PO 10 mg BID BAUTISTA Administration Gabapentin 300 mg 12/29/21 22:00 01/05/22 21:35 Gabapentin 300 Mg Cap PO 300 mg BID BAUTISTA Administration Hydromorphone HCl 1 mg 01/02/22 09:30 01/05/22 21:31 Hydromorphone 1 Mg/1 Ml Inj IV 1 mg Q3H PRN Administration Pain, Moderate (4-6) Insulin Glargine 25 units 12/30/21 22:00 01/05/22 21:34 Insulin Glargine 100 Units/Ml SUB-Q 25 units QHS BAUTISTA Administration Insulin Human Lispro 0 unit 12/29/21 11:30 01/05/22 21:36 Insulin Lispro 100 Unit/Ml SUB-Q Not Given ACHS [facility] Protocol Lisinopril 10 mg 12/30/21 10:00 01/05/22 09:04 Lisinopril 10 Mg Tab PO 10 mg QDAY BAUTISTA Administration Nicotine 14 mg 12/29/21 17:00 01/05/22 09:07 Nicotine 14 Mg/24 Hr Patch TD 14 mg QDAY BAUTISTA Administration Ondansetron HCl 4 mg 12/28/21 20:31 12/31/21 09:47 Ondansetron 4 Mg/2 Ml Inj IV 4 mg Q8H PRN Administration Nausea And Vomiting Oxycodone/Acetaminophen 1 tab 01/02/22 11:00 01/06/22 05:51 Oxycodone /Acetaminophen 5-325mg Tab PO 1 tab Q6HR BAUTISTA Administration Sodium Chloride 10 ml 12/28/21 22:00 01/05/22 21:32 Sodium Chloride 0.9% 10 Ml Flush Syringe IV 10 ml BID BAUTISTA Administration Sodium Chloride 10 ml 12/28/21 20:31 Sodium Chloride 0.9% 10 Ml Flush Syringe IV PRN PRN LINE FLUSH Sodium Chloride 500 ml 01/04/22 16:38 01/04/22 16:48 Sodium Chloride 0.9% Irr 500 Ml Bottle IR 500 ml DIRECT PRN Administration Wound Care Tramadol HCl 50 mg 12/28/21 14:22 01/02/22 05:07 Tramadol 50 Mg Tab PO 50 mg Q6H PRN Administration Pain , Severe (7-10) Trazodone HCl 50 mg 01/04/22 22:00 01/05/22 21:36 Trazodone 50 Mg Tab PO 50 mg QHS BAUTISTA Administration Nutrition/Malnutrition Assess - Dietary Evaluation Nutrition/Malnutrition Findings: Nutrition Notes Start: 01/04/22 09:49 Freq: Status: Active Protocol: Document 01/04/22 09:49 ANDERSON (Rec: 01/04/22 10:04 ANDERSON [id number]) Nutrition Notes Need for Assessment generated from: LOS Initial or Follow up Assessment Current Diagnosis Diabetes,Sepsis,Hypertension, Heart Failure,Stroke Other Pertinent Diagnosis (R) leg necrotizing fasciitis s/p debridement, GERD, OA, Depression Current Diet GI soft Labs/Tests BG labs since admission: 362, 419, 280, 172, 190, 221 Pertinent Medications Reviewed Height 5 ft 6.93 in Weight 91.6 kg [place] Body Weight (kg) 61.20 BMI 31.6 Weight Status Obese Subjective/Other Information Pt screened for LOS. She has consumed 50% of recorded meals . D/C summary written yesterday. Percent of energy/protein needs met: 64% energy 43% pro Burn Absent Trauma Absent Skin Integrity/Comment (R) upper thigh wound Current % PO Fair (50-74%) Minimum of two criteria No #2 Nutrition Diagnosis Altered nutrition-related laboratory values Etiology hx of DM As Evidenced by Signs and Symptoms BG been elevated since admission and current diet order has no CHO restriction #1 Nutrition Diagnosis Inadequate protein-energy intake Etiology sepsis, depression As Evidenced by Signs and Symptoms current PO intake meeting <75% estimated energy and pro needs; pt also with surgical wound requiring wound vac Is patient on ventilator? No Is Patient Ambulatory and/or Out of Bed No REE-([facility]-confined to bed) 1796.136 Kcal/Kg value to use for calculation 17 Approximate Energy Requirements Using 1557 kcal/Kg Calculation Used for Recommendations Kcal/kg Additional Notes Pro needs 1.25-1.5g/kg adjBW: 96-115g/day Fluid needs 1ml/kcal Nutrition Intervention Change Diet Order: Add consistent CHO modifier to current diet order Add Supplement/Snack (indicate name/kcal Ensure High Protein BID /protein ) Provides kCal: 320 Provides Protein (gm) 32 Goal #1 PO intake of meals plus ONS to meet at least 75% energy and pro needs Goal #2 Wound healing Anticipated Discharge Needs: Continue high-protein/low-CHO ONS 1-2 times daily if PO intake remains suboptimal Follow-Up By: 01/09/22 Additional Comments F/U: intakes (meals/ONS)
[2022-01-06] MEDS: CLOPIDOGREL 75 MG TAB PO SCH (09:23)
[2022-01-06] MEDS: DOXYCYCLINE 100 MG CAP PO SCH ×2 (09:23→21:35)
[2022-01-06] MEDS: FAMOTIDINE 10 MG TAB PO SCH ×2 (09:24→21:35)
[2022-01-06] MEDS: AMOXICILLIN/K CLAV 875/125MG TAB PO SCH ×2 (09:24→21:35)
[2022-01-06] MEDS: ASPIRIN 325 MG TAB PO SCH (09:24)
[2022-01-06] MEDS: NICOTINE 14 MG/24 HR PATCH TD SCH (09:24)
[2022-01-06] MEDS: DULoxetine 30 MG CAP PO SCH (09:24)
[2022-01-06] MEDS: GABAPENTIN 300 MG CAP PO SCH ×2 (09:24→21:36)
[2022-01-06] MEDS: INSULIN LISPRO 100 UNIT/ML SUB-Q SCH ×4 (09:25→21:41)
[2022-01-06] MEDS: amLODIPine 5 MG TAB PO SCH (09:29)
[2022-01-06] MEDS: LISINOPRIL 10 MG TAB PO SCH (09:31)
--- NOTE | 2022-01-06 17:41 | Progress Note ---
Assessment and Plan 66 YO Female with CVA on DAPT, HTN, DM, Diastolic CHF, GERD, Nicotine Dependence, OA, Debility presents to ED for evaluation. Patient states that she has experienced swelling, redness, and pain to her right thigh area over the past 3 days with persistent and worsening symptoms over the same timeframe. Patient states the pain is 10/10, constant, worsened with movement, and relieved with nonmovement. Patient also reports feeling depressed due to her current living conditions. Patient reports feeling suicidal and considered drawing up insulin and taking a big dose in an attempt to take her own life. Patient states that she is unsatisfied with her current family response to her needs. EMS was notified by family members due to the aforementioned symptoms and upon arrival the patient was found to be in distress and subsequent transported to [facility] for further care and evaluation of the aforementioned symptoms. Patient was found to have fever with a temperature of 101 F. Patient was also found to have cellulitis to the right thigh and perineal area complicated by sepsis. Patient admitted to medical floor and initiated on sepsis protocol. Mental health team consulted in ED. patient denies chills, chest pain, palpitation, productive cough, skin rash, recent contact, known exposure to COVID-19. Patient has history of smoking 1 pack a day x 30 years. Counseled to stop smoking. Patient has history of alcohol and drug abuse. 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 Allergic to pencillin. Patient Obese, awake. Patient resting on room air. O2 saturation 100%. No acute respiratory distress. Patient afebrile. Has leukocytosis. Blood pressure 121/69 , Pulse 79 , Respirations 18. Chest xray done 01/01/22 reported No acute findings. There is no evidence of pneumonia. Patient is started on PO antibiotics Augmentin and vibramycin. I was told patient tolerating Augmentin with out allergic reaction. Famotidine, Plavix, Albuterol inhaler and Nicotine patch. - Patient Problems (1) Cellulitis of right lower extremity Current Visit: Yes Status: Acute Plan to address problem: Patient was on meropenum and vancomycin. Patient is started on PO antibiotics Augmentin and vibramycin. I was told patient tolerating Augmentin with out allergic reaction. (2) Diabetes Current Visit: Yes Status: Acute Plan to address problem: Management as per primary care. (3) Diastolic CHF Current Visit: Yes Status: Acute Qualifiers: Heart failure chronicity: chronic Qualified Code(s): I50.32 - Chronic diastolic (congestive) heart failure Plan to address problem: Management as per cardiology. (4) GERD (gastroesophageal reflux disease) Current Visit: Yes Status: Acute Qualifiers: Esophagitis presence: without esophagitis Qualified Code(s): K21.9 - Gastro-esophageal reflux disease without esophagitis Plan to address problem: On Famotidine. (5) Hypertension Current Visit: Yes Status: Acute Qualifiers: Hypertension type: primary hypertension Qualified Code(s): I10 - Essential (primary) hypertension Plan to address problem: Management as per primary care. (6) Sepsis Current Visit: Yes Status: Acute Plan to address problem: Patient was on Meropenum and vancomycin. (7) Nicotine dependence Current Visit: No Status: Acute Qualifiers: Nicotine product type: cigarettes Substance use status: in withdrawal Qualified Code(s): F17.213 - Nicotine dependence, cigarettes, with withdrawal Plan to address problem: Counseled to stop smoking. (8) Obesity (BMI 30-39.9) Current Visit: Yes Status: Acute Plan to address problem: Recommend to loose weight. Recommend sleep study as out patient. Subjective Date of service: 01/06/22 Principal diagnosis: Cellulitis (Nec Faciitis); DM II; Morbid obesity ; Tobacco abuse; Acidosis Interval history: 66 YO Female with CVA on DAPT, HTN, DM, Diastolic CHF, GERD, Nicotine Dependence, OA, Debility presents to ED for evaluation. Patient states that she has experienced swelling, redness, and pain to her right thigh area over the past 3 days with persistent and worsening symptoms over the same timeframe. Patient states the pain is 10/10, constant, worsened with movement, and relieved with nonmovement. Patient also reports feeling depressed due to her current living conditions. Patient reports feeling suicidal and considered drawing up insulin and taking a big dose in an attempt to take her own life. Patient states that she is unsatisfied with her current family response to her needs. EMS was notified by family members due to the aforementioned symptoms and upon arrival the patient was found to be in distress and subsequent transported to [facility] for further care and evaluation of the aforementioned symptoms. Patient was found to have fever with a temperature of 101 F. Patient was also found to have cellulitis to the right thigh and perineal area complicated by sepsis. Patient admitted to medical floor and initiated on sepsis protocol. Mental health team consulted in ED. patient denies chills, chest pain, palpitation, productive cough, skin rash, recent contact, known exposure to COVID-19. Patient has history of smoking 1 pack a day x 30 years. Counseled to stop smoking. Patient has history of alcohol and drug abuse. 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 Allergic to pencillin. Patient Obese, awake. Patient resting on room air. O2 saturation 100%. No acute respiratory distress. Patient afebrile. Has leukocytosis. Blood pressure 121/69 , Pulse 79 , Respirations 18. Chest xray done 01/01/22 reported No acute findings. There is no evidence of pneumonia. Patient is started on PO antibiotics Augmentin and vibramycin. I was told patient tolerating Augmentin with out allergic reaction. Famotidine, Plavix, Albuterol inhaler and Nicotine patch. Objective Vital Signs - 12hr 01/06/22 01/06/22 01/06/22 05:51 09:22 09:28 Temperature 99.0 F Pulse Rate 90 Respiratory 18 18 18 Rate Blood Pressure Blood Pressure 101/67 [Left] O2 Sat by Pulse 98 Oximetry 01/06/22 01/06/22 01/06/22 09:29 09:31 13:08 Temperature 98.9 F Pulse Rate 88 88 98 H Respiratory 18 Rate Blood Pressure 101/67 101/67 143/83 Blood Pressure [Left] O2 Sat by Pulse 97 Oximetry Constitutional: no acute distress, alert Eyes: non-icteric ENT: oropharynx moist Neck: supple, no lymphadenopathy Effort: mildly labored Ascultation: Bilateral: diminished breath sounds Percussion: Bilateral: not dull Cardiovascular: regular rate and rhythm Gastrointestinal: normoactive bowel sounds, soft, non-tender Integumentary: normal Extremities: edema, other (Cellulitis, right thigh.) Neurologic: non-focal exam, pupils equal and round, CN II-XII normal Psychiatric: other (flat affect) CBC and BMP: 01/03/22 04:56 01/03/22 04:56 ABG, PT/INR, D-dimer: ABG ABG pH 7.413 pH Units (7.350-7.450) 01/01/22 10:48 ABG pCO2 56.6 mm Hg 01/01/22 10:48 ABG pO2 54.5 mm Hg (80.0-90.0) L 01/01/22 10:48 ABG O2 Saturation 89.0 % (95.0-99.0) L 01/01/22 10:48 Abnormal lab findings: Abnormal Labs 12/28/21 12/28/21 12/28/21 12:49 12:49 12:49 WBC 34.9 H Hgb 14.7 H Hct 47.7 H MCH MCHC Plt Count Seg Neuts % (Manual) 90.0 H Lymphocytes % (Manual) 0 L Monocytes % (Manual) Seg Neutrophils # Man 31.4 H Lymphocytes # (Manual) 0.0 L Monocytes # (Manual) 1.4 H ABG pO2 ABG HCO3 ABG O2 Saturation ABG Base Excess ABG Hemoglobin Oxyhemoglobin Potassium Carbon Dioxide Glucose 362 H POC Glucose Lactic Acid Calcium Alkaline Phosphatase 269 H Total Protein Albumin 3.1 L Ur Specific [place] Salicylates < 0.3 L Acetaminophen 12/28/21 12/28/21 12/28/21 12:49 19:00 19:04 WBC Hgb Hct MCH MCHC Plt Count Seg Neuts % (Manual) Lymphocytes % (Manual) Monocytes % (Manual) Seg Neutrophils # Man Lymphocytes # (Manual) Monocytes # (Manual) ABG pO2 ABG HCO3 ABG O2 Saturation ABG Base Excess ABG Hemoglobin Oxyhemoglobin Potassium Carbon Dioxide Glucose POC Glucose Lactic Acid 3.30 H* Calcium Alkaline Phosphatase Total Protein Albumin Ur Specific [place] 1.043 H Salicylates Acetaminophen 5.0 L 12/28/21 12/28/21 12/28/21 20:41 20:56 20:56 WBC Hgb Hct MCH MCHC Plt Count Seg Neuts % (Manual) Lymphocytes % (Manual) Monocytes % (Manual) Seg Neutrophils # Man Lymphocytes # (Manual) Monocytes # (Manual) ABG pO2 ABG HCO3 ABG O2 Saturation ABG Base Excess ABG Hemoglobin Oxyhemoglobin Potassium Carbon Dioxide 20 L Glucose 419 H POC Glucose 399 H Lactic Acid 2.80 H* Calcium 8.1 L Alkaline Phosphatase Total Protein Albumin Ur Specific [place] Salicylates Acetaminophen 12/28/21 12/29/21 12/29/21 22:00 00:16 04:47 WBC 30.7 H Hgb Hct MCH 33 H MCHC 35 H Plt Count Seg Neuts % (Manual) 94.0 H Lymphocytes % (Manual) 2.0 L Monocytes % (Manual) Seg Neutrophils # Man 28.9 H Lymphocytes # (Manual) 0.6 L Monocytes # (Manual) ABG pO2 ABG HCO3 ABG O2 Saturation ABG Base Excess ABG Hemoglobin Oxyhemoglobin Potassium Carbon Dioxide Glucose POC Glucose 358 H 257 H Lactic Acid Calcium Alkaline Phosphatase Total Protein Albumin Ur Specific [place] Salicylates Acetaminophen 12/29/21 12/29/21 12/29/21 04:47 11:25 17:14 WBC Hgb Hct MCH MCHC Plt Count Seg Neuts % (Manual) Lymphocytes % (Manual) Monocytes % (Manual) Seg Neutrophils # Man Lymphocytes # (Manual) Monocytes # (Manual) ABG pO2 ABG HCO3 ABG O2 Saturation ABG Base Excess ABG Hemoglobin Oxyhemoglobin Potassium Carbon Dioxide Glucose 280 H POC Glucose 321 H 136 H Lactic Acid Calcium 8.0 L Alkaline Phosphatase 237 H Total Protein 6.0 L Albumin 2.3 L Ur Specific [place] Salicylates Acetaminophen 12/29/21 12/30/21 12/30/21 20:59 04:42 04:42 WBC 19.9 H Hgb Hct MCH MCHC Plt Count Seg Neuts % (Manual) Lymphocytes % (Manual) Monocytes % (Manual) Seg Neutrophils # Man Lymphocytes # (Manual) Monocytes # (Manual) ABG pO2 ABG HCO3 ABG O2 Saturation ABG Base Excess ABG Hemoglobin Oxyhemoglobin Potassium 3.2 L Carbon Dioxide Glucose 172 H POC Glucose 150 H Lactic Acid Calcium 8.3 L Alkaline Phosphatase Total Protein Albumin Ur Specific [place] Salicylates Acetaminophen 12/30/21 12/30/21 12/30/21 08:14 11:23 16:25 WBC Hgb Hct MCH MCHC Plt Count Seg Neuts % (Manual) Lymphocytes % (Manual) Monocytes % (Manual) Seg Neutrophils # Man Lymphocytes # (Manual) Monocytes # (Manual) ABG pO2 ABG HCO3 ABG O2 Saturation ABG Base Excess ABG Hemoglobin Oxyhemoglobin Potassium Carbon Dioxide Glucose POC Glucose 194 H 245 H 209 H Lactic Acid Calcium Alkaline Phosphatase Total Protein Albumin Ur Specific [place] Salicylates Acetaminophen 12/30/21 12/31/21 12/31/21 21:27 07:31 11:46 WBC Hgb Hct MCH MCHC Plt Count Seg Neuts % (Manual) Lymphocytes % (Manual) Monocytes % (Manual) Seg Neutrophils # Man Lymphocytes # (Manual) Monocytes # (Manual) ABG pO2 ABG HCO3 ABG O2 Saturation ABG Base Excess ABG Hemoglobin Oxyhemoglobin Potassium Carbon Dioxide Glucose POC Glucose 169 H 164 H 172 H Lactic Acid Calcium Alkaline Phosphatase Total Protein Albumin Ur Specific [place] Salicylates Acetaminophen 12/31/21 12/31/21 01/01/22 15:26 21:44 07:38 WBC Hgb Hct MCH MCHC Plt Count Seg Neuts % (Manual) Lymphocytes % (Manual) Monocytes % (Manual) Seg Neutrophils # Man Lymphocytes # (Manual) Monocytes # (Manual) ABG pO2 ABG HCO3 ABG O2 Saturation ABG Base Excess ABG Hemoglobin Oxyhemoglobin Potassium Carbon Dioxide Glucose POC Glucose 154 H 272 H 143 H Lactic Acid Calcium Alkaline Phosphatase Total Protein Albumin Ur Specific [place] Salicylates Acetaminophen 01/01/22 01/01/22 01/01/22 10:48 12:02 16:51 WBC Hgb Hct MCH MCHC Plt Count Seg Neuts % (Manual) Lymphocytes % (Manual) Monocytes % (Manual) Seg Neutrophils # Man Lymphocytes # (Manual) Monocytes # (Manual) ABG pO2 54.5 L ABG HCO3 35.3 H ABG O2 Saturation 89.0 L ABG Base Excess 9.1 H ABG Hemoglobin 11.5 L Oxyhemoglobin 87.4 L Potassium Carbon Dioxide Glucose POC Glucose 256 H 67 L Lactic Acid Calcium Alkaline Phosphatase Total Protein Albumin Ur Specific [place] Salicylates Acetaminophen 01/01/22 01/01/22 01/02/22 17:47 21:36 07:25 WBC 13.4 H Hgb Hct MCH MCHC Plt Count Seg Neuts % (Manual) 74.0 H Lymphocytes % (Manual) 13.0 L Monocytes % (Manual) 10.0 H Seg Neutrophils # Man 9.9 H Lymphocytes # (Manual) Monocytes # (Manual) 1.3 H ABG pO2 ABG HCO3 ABG O2 Saturation ABG Base Excess ABG Hemoglobin Oxyhemoglobin Potassium Carbon Dioxide Glucose POC Glucose 148 H 278 H Lactic Acid Calcium Alkaline Phosphatase Total Protein Albumin Ur Specific [place] Salicylates Acetaminophen 01/02/22 01/02/22 01/02/22 07:25 07:47 11:07 WBC Hgb Hct MCH MCHC Plt Count Seg Neuts % (Manual) Lymphocytes % (Manual) Monocytes % (Manual) Seg Neutrophils # Man Lymphocytes # (Manual) Monocytes # (Manual) ABG pO2 ABG HCO3 ABG O2 Saturation ABG Base Excess ABG Hemoglobin Oxyhemoglobin Potassium Carbon Dioxide 32 H Glucose 190 H POC Glucose 189 H 256 H Lactic Acid Calcium Alkaline Phosphatase Total Protein Albumin Ur Specific [place] Salicylates Acetaminophen 01/02/22 01/02/22 01/03/22 15:30 21:16 04:56 WBC 12.2 H Hgb Hct MCH MCHC Plt Count 463 H Seg Neuts % (Manual) 72.0 H Lymphocytes % (Manual) Monocytes % (Manual) Seg Neutrophils # Man 8.8 H Lymphocytes # (Manual) Monocytes # (Manual) ABG pO2 ABG HCO3 ABG O2 Saturation ABG Base Excess ABG Hemoglobin Oxyhemoglobin Potassium Carbon Dioxide Glucose POC Glucose 224 H 219 H Lactic Acid Calcium Alkaline Phosphatase Total Protein Albumin Ur Specific [place] Salicylates Acetaminophen 01/03/22 01/03/22 01/03/22 04:56 07:13 11:28 WBC Hgb Hct MCH MCHC Plt Count Seg Neuts % (Manual) Lymphocytes % (Manual) Monocytes % (Manual) Seg Neutrophils # Man Lymphocytes # (Manual) Monocytes # (Manual) ABG pO2 ABG HCO3 ABG O2 Saturation ABG Base Excess ABG Hemoglobin Oxyhemoglobin Potassium Carbon Dioxide 33 H Glucose 221 H POC Glucose 269 H 215 H Lactic Acid Calcium Alkaline Phosphatase Total Protein Albumin Ur Specific [place] Salicylates Acetaminophen 01/03/22 01/03/22 01/04/22 15:55 21:49 07:33 WBC Hgb Hct MCH MCHC Plt Count Seg Neuts % (Manual) Lymphocytes % (Manual) Monocytes % (Manual) Seg Neutrophils # Man Lymphocytes # (Manual) Monocytes # (Manual) ABG pO2 ABG HCO3 ABG O2 Saturation ABG Base Excess ABG Hemoglobin Oxyhemoglobin Potassium Carbon Dioxide Glucose POC Glucose 168 H 154 H 158 H Lactic Acid Calcium Alkaline Phosphatase Total Protein Albumin Ur Specific [place] Salicylates Acetaminophen 01/04/22 01/04/22 01/04/22 11:47 16:20 21:13 WBC Hgb Hct MCH MCHC Plt Count Seg Neuts % (Manual) Lymphocytes % (Manual) Monocytes % (Manual) Seg Neutrophils # Man Lymphocytes # (Manual) Monocytes # (Manual) ABG pO2 ABG HCO3 ABG O2 Saturation ABG Base Excess ABG Hemoglobin Oxyhemoglobin Potassium Carbon Dioxide Glucose POC Glucose 234 H 217 H 191 H Lactic Acid Calcium Alkaline Phosphatase Total Protein Albumin Ur Specific [place] Salicylates Acetaminophen 01/05/22 01/05/22 01/05/22 07:28 10:55 16:03 WBC Hgb Hct MCH MCHC Plt Count Seg Neuts % (Manual) Lymphocytes % (Manual) Monocytes % (Manual) Seg Neutrophils # Man Lymphocytes # (Manual) Monocytes # (Manual) ABG pO2 ABG HCO3 ABG O2 Saturation ABG Base Excess ABG Hemoglobin Oxyhemoglobin Potassium Carbon Dioxide Glucose POC Glucose 198 H 253 H 202 H Lactic Acid Calcium Alkaline Phosphatase Total Protein Albumin Ur Specific [place] Salicylates Acetaminophen 01/05/22 01/06/22 01/06/22 21:13 07:12 11:07 WBC Hgb Hct MCH MCHC Plt Count Seg Neuts % (Manual) Lymphocytes % (Manual) Monocytes % (Manual) Seg Neutrophils # Man Lymphocytes # (Manual) Monocytes # (Manual) ABG pO2 ABG HCO3 ABG O2 Saturation ABG Base Excess ABG Hemoglobin Oxyhemoglobin Potassium Carbon Dioxide Glucose POC Glucose 110 H 158 H 220 H Lactic Acid Calcium Alkaline Phosphatase Total Protein Albumin Ur Specific [place] Salicylates Acetaminophen 01/06/22 16:42 WBC Hgb Hct MCH MCHC Plt Count Seg Neuts % (Manual) Lymphocytes % (Manual) Monocytes % (Manual) Seg Neutrophils # Man Lymphocytes # (Manual) Monocytes # (Manual) ABG pO2 ABG HCO3 ABG O2 Saturation ABG Base Excess ABG Hemoglobin Oxyhemoglobin Potassium Carbon Dioxide Glucose POC Glucose 139 H Lactic Acid Calcium Alkaline Phosphatase Total Protein Albumin Ur Specific [place] Salicylates Acetaminophen Allied health notes reviewed: nursing
[2022-01-06] MEDS: HYDROmorphone 1 MG/1 ML INJ IV PRN (18:23)
[2022-01-06] MEDS: traZODone 50 MG TAB PO SCH (21:35)
[2022-01-06] MEDS: INSULIN GLARGINE 100 UNITS/ML SUB-Q SCH (21:36)
[2022-01-07] MEDS: oxyCODONE /ACETAMINOPHEN 5-325MG TAB PO SCH ×3 (05:27→17:06)
[2022-01-07] MEDS: INSULIN LISPRO 100 UNIT/ML SUB-Q SCH ×4 (10:34→22:47)
[2022-01-07] MEDS: FAMOTIDINE 10 MG TAB PO SCH ×2 (10:36→22:18)
[2022-01-07] MEDS: DOXYCYCLINE 100 MG CAP PO SCH ×2 (10:36→22:18)
[2022-01-07] MEDS: NICOTINE 14 MG/24 HR PATCH TD SCH (10:36)
[2022-01-07] MEDS: DULoxetine 30 MG CAP PO SCH (10:36)
[2022-01-07] MEDS: AMOXICILLIN/K CLAV 875/125MG TAB PO SCH ×2 (10:36→22:19)
[2022-01-07] MEDS: ASPIRIN 325 MG TAB PO SCH (10:36)
[2022-01-07] MEDS: LISINOPRIL 10 MG TAB PO SCH (10:36)
[2022-01-07] MEDS: amLODIPine 5 MG TAB PO SCH (10:36)
--- NOTE | 2022-01-07 11:09 | Progress Note ---
Assessment and Plan Assessment and plan: 66-year-old female with known past medical history of CVA on DAPT, HTN, DM, Diastolic CHF, GERD, Nicotine Dependence, OA, and Debility admitted for sepsis 2/2 necrotizing fasciitis of the right leg s/p wide excisional debridement by General Surgery. #Suicidal ideation [address] [facility] psych consulted; appreciate recs Pending acute psychiatric inpatient hospitalization #Sepsisresolved #Leukocytosis-resolved #Cellulitis of Right Lower Extremity #Necrotizing Fasciitis of the Right Leg status post wide excisional debridement #Lactic Acidosis- resolved 12/28 s/p wide excisional debridement; repeated on 12/31/2021 General surgery consulted; appreciate recs Pulmonology consulted; appreciate recs Infectious disease consulted; appreciate recs Discontinued clindamycin. Continue meropenem 500 mg every 6 hours and starting vancomycin 1 g every 12 hours Leukocytosis downtrending, remains afebrile Blood culture NG x 48hrs #Insulin dependent type II diabetes mellitus with hyperglycemia - hemoglobin A1c: pending - home regimen: NPH 70/30 15 units twice daily - current regimen: Lantus 25 units nightly - blood glucose goal 140-180 while inpatient - continue to monitor #Hypertension #Hyperlipidemia - home medications: Amlodipine 5 mg daily, atorvastatin 80 mg daily - current medications: Amlodipine 5 mg daily, Plavix 75 mg daily, lisinopril 10 mg daily - SBP goal <160 and DBP goal <90 while inpatient - continue to monitor #Hypokalemiaresolved - will replete and monitor #Nicotine Dependence - Nicotine patch added - Smoking cessation counseling, supportive care, behavior change counseling, +15 minutes. #Debility - PT/OT consulted; appreciate recs #Discharge planning - Patient is acute psychiatric inpatient hospitalization. Patient is medically cleared for discharge. - Case management has been made aware. Disposition Plan: Pending inpatient psych hospitalization Total Time Spent with Patient (Minutes): 30 minutes History Interval history: No acute events overnight. Hospitalist Physical - Constitutional Vitals: Temp Pulse Resp BP Pulse Ox 98.0 F 85 17 144/76 97 01/07/22 05:37 01/07/22 05:37 01/07/22 06:27 01/07/22 05:37 01/07/22 07:38 General appearance: Present: no acute distress, well-nourished, obese - EENT Eyes: Present: PERRL, EOM intact ENT: hearing intact, clear oral mucosa - Neck Neck: Present: supple, normal ROM - Respiratory Respiratory effort: normal Respiratory: bilateral: CTA - Cardiovascular Rhythm: regular Heart Sounds: Present: S1 & S2 - Extremities Extremities: no ischemia, pulses intact, pulses symmetrical, normal temperature, normal color, abnormal (Right anterior thigh wrapped in Kerlix and Jarret bandage) Extremity abnormal: tenderness (Moderate tenderness of right anterior thigh) Peripheral Pulses: within normal limits - Abdominal General gastrointestinal: soft, non-tender, non-distended, normal bowel sounds - Integumentary Integumentary: Present: clear, warm, dry - Psychiatric Psychiatric: appropriate mood/affect, cooperative, depressed - Neurologic Neurologic: CNII-XII intact, moves all extremities - Allied Health Allied health notes reviewed: nursing Results - Labs CBC & Chem 7: 01/03/22 04:56 01/03/22 04:56 Labs: Laboratory Last Values WBC 12.2 K/mm3 (4.5-11.0) H 01/03/22 04:56 RBC 3.85 M/mm3 (3.65-5.03) 01/03/22 04:56 Hgb 11.5 gm/dl (10.1-14.3) 01/03/22 04:56 Hct 36.4 % (30.3-42.9) 01/03/22 04:56 MCV 94 fl (79-97) 01/03/22 04:56 MCH 30 pg (28-32) 01/03/22 04:56 MCHC 32 % (30-34) 01/03/22 04:56 RDW 14.4 % (13.2-15.2) 01/03/22 04:56 Plt Count 463 K/mm3 (140-440) H 01/03/22 04:56 Add Manual Diff Complete 01/03/22 04:56 Total Counted 100 01/03/22 04:56 Seg Neutrophils % Patient Manager 12/28/21 12:49 Seg Neuts % (Manual) 72.0 % (40.0-70.0) H 01/03/22 04:56 Band Neutrophils % 0 % 01/03/22 04:56 Lymphocytes % (Manual) 25.0 % (13.4-35.0) 01/03/22 04:56 Reactive Lymphs % (Man) 0 % 01/03/22 04:56 Monocytes % (Manual) 3.0 % (0.0-7.3) 01/03/22 04:56 Eosinophils % (Manual) 0 % (0.0-4.3) 01/03/22 04:56 Basophils % (Manual) 0 % (0.0-1.8) 01/03/22 04:56 Metamyelocytes % 0 % 01/03/22 04:56 Myelocytes % 0 % 01/03/22 04:56 Promyelocytes % 0 % 01/03/22 04:56 Blast Cells % 0 % 01/03/22 04:56 Nucleated RBC % Not Reportable 01/03/22 04:56 Seg Neutrophils # Man 8.8 K/mm3 (1.8-7.7) H 01/03/22 04:56 Band Neutrophils # 0.0 K/mm3 01/03/22 04:56 Lymphocytes # (Manual) 3.1 K/mm3 (1.2-5.4) 01/03/22 04:56 Abs React Lymphs (Man) 0.0 K/mm3 01/03/22 04:56 Monocytes # (Manual) 0.4 K/mm3 (0.0-0.8) 01/03/22 04:56 Eosinophils # (Manual) 0.0 K/mm3 (0.0-0.4) 01/03/22 04:56 Basophils # (Manual) 0.0 K/mm3 (0.0-0.1) 01/03/22 04:56 Metamyelocytes # 0.0 K/mm3 01/03/22 04:56 Myelocytes # 0.0 K/mm3 01/03/22 04:56 Promyelocytes # 0.0 K/mm3 01/03/22 04:56 Blast Cells # 0.0 K/mm3 01/03/22 04:56 Pathologist Review 12/28/21 12:49 WBC Morphology Not Reportable 01/03/22 04:56 Hypersegmented Neuts Not Reportable 01/03/22 04:56 Hyposegmented Neuts Not Reportable 01/03/22 04:56 Hypogranular Neuts Not Reportable 01/03/22 04:56 Smudge Cells Not Reportable 01/03/22 04:56 Toxic Granulation Not Reportable 01/03/22 04:56 Toxic Vacuolation Not Reportable 01/03/22 04:56 Dohle Bodies Not Reportable 01/03/22 04:56 Pelger-Huet Anomaly Not Reportable 01/03/22 04:56 Kennedi Rods Not Reportable 01/03/22 04:56 Platelet Estimate Consistent w auto 01/03/22 04:56 Clumped Platelets Not Reportable 01/03/22 04:56 Plt Clumps, EDTA Not Reportable 01/03/22 04:56 Large Platelets Not Reportable 01/03/22 04:56 Giant Platelets Not Reportable 01/03/22 04:56 Platelet Satelliting Not Reportable 01/03/22 04:56 Plt Morphology Comment Not Reportable 01/03/22 04:56 RBC Morphology Normal 01/03/22 04:56 Dimorphic RBCs Not Reportable 01/03/22 04:56 Polychromasia Not Reportable 01/03/22 04:56 Hypochromasia Not Reportable 01/03/22 04:56 Poikilocytosis Not Reportable 01/03/22 04:56 Anisocytosis Not Reportable 01/03/22 04:56 Microcytosis Not Reportable 01/03/22 04:56 Macrocytosis Not Reportable 01/03/22 04:56 Spherocytes Not Reportable 01/03/22 04:56 Pappenheimer Bodies Not Reportable 01/03/22 04:56 Sickle Cells Not Reportable 01/03/22 04:56 Target Cells Not Reportable 01/03/22 04:56 Tear Drop Cells Not Reportable 01/03/22 04:56 Ovalocytes Not Reportable 01/03/22 04:56 Helmet Cells Not Reportable 01/03/22 04:56 Freeman-Benham Bodies Not Reportable 01/03/22 04:56 Tabor Rings Not Reportable 01/03/22 04:56 Epifanio Cells Not Reportable 01/03/22 04:56 Bite Cells Not Reportable 01/03/22 04:56 Crenated Cell Not Reportable 01/03/22 04:56 Elliptocytes Not Reportable 01/03/22 04:56 Acanthocytes (Spur) Not Reportable 01/03/22 04:56 Rouleaux Not Reportable 01/03/22 04:56 Hemoglobin C Crystals Not Reportable 01/03/22 04:56 Schistocytes Not Reportable 01/03/22 04:56 Malaria parasites Not Reportable 01/03/22 04:56 [place] Bodies Not Reportable 01/03/22 04:56 Hem Pathologist Commnt No 01/03/22 04:56 ABG pH 7.413 pH Units (7.350-7.450) 01/01/22 10:48 ABG pCO2 56.6 mm Hg 01/01/22 10:48 ABG pO2 54.5 mm Hg (80.0-90.0) L 01/01/22 10:48 ABG HCO3 35.3 mmol/L (20.0-26.0) H 01/01/22 10:48 ABG O2 Saturation 89.0 % (95.0-99.0) L 01/01/22 10:48 ABG O2 Content 14.1 (0.0-44) 01/01/22 10:48 ABG Base Excess 9.1 mmol/L (-2.0-3.0) H 01/01/22 10:48 ABG Hemoglobin 11.5 gm/dl (12.0-16.0) L 01/01/22 10:48 ABG Carboxyhemoglobin 1.2 % (0.0-5.0) 01/01/22 10:48 ABG Methemoglobin 0.5 % (0.0-1.5) 01/01/22 10:48 Oxyhemoglobin 87.4 % (95.0-99.0) L 01/01/22 10:48 FiO2 21 % 01/01/22 10:48 Sodium 143 mmol/L (137-145) 01/03/22 04:56 Potassium 3.7 mmol/L (3.6-5.0) 01/03/22 04:56 Chloride 101.2 mmol/L (98-107) 01/03/22 04:56 Carbon Dioxide 33 mmol/L (22-30) H 01/03/22 04:56 Anion Gap 13 mmol/L 01/03/22 04:56 BUN 12 mg/dL (7-17) 01/03/22 04:56 Creatinine 0.7 mg/dL (0.6-1.2) 01/03/22 04:56 Estimated GFR > 60 ml/min 01/03/22 04:56 BUN/Creatinine Ratio 17 % 01/03/22 04:56 Glucose 221 mg/dL (65-100) H 01/03/22 04:56 POC Glucose 129 mg/dL (70-105) H 01/07/22 07:43 Lactic Acid 1.60 mmol/L (0.7-2.0) 12/29/21 13:08 Calcium 8.5 mg/dL (8.4-10.2) 01/03/22 04:56 Total Bilirubin 0.60 mg/dL (0.1-1.2) 12/29/21 04:47 AST 38 units/L (5-40) 12/29/21 04:47 ALT 31 units/L (7-56) 12/29/21 04:47 Alkaline Phosphatase 237 units/L (35-129) H 12/29/21 04:47 Total Protein 6.0 g/dL (6.3-8.2) L 12/29/21 04:47 Albumin 2.3 g/dL (3.9-5) L 12/29/21 04:47 Albumin/Globulin Ratio 0.6 % 12/29/21 04:47 Urine Color Yellow (Yellow) 12/28/21 19:00 Urine Turbidity Clear (Clear) 12/28/21 19:00 Urine pH 6.0 (5.0-7.0) 12/28/21 19:00 Ur Specific Hulen 1.043 (1.003-1.030) H 12/28/21 19:00 Urine Protein 30 mg/dl mg/dL (Negative) 12/28/21 19:00 Urine Glucose (UA) >=500 mg/dL (Negative) 12/28/21 19:00 Urine Ketones Neg mg/dL (Negative) 12/28/21 19:00 Urine Blood Neg (Negative) 12/28/21 19:00 Urine Nitrite Neg (Negative) 12/28/21 19:00 Urine Bilirubin Neg (Negative) 12/28/21 19:00 Urine Urobilinogen 4.0 mg/dL (<2.0) 12/28/21 19:00 Ur Leukocyte Esterase Neg (Negative) 12/28/21 19:00 Urine WBC (Auto) 6.0 /HPF (0.0-6.0) 12/28/21 19:00 Urine RBC (Auto) 14.0 /HPF (0.0-6.0) 12/28/21 19:00 U Epithel Cells (Auto) 2.0 /HPF (0-13.0) 12/28/21 19:00 Urine Bacteria (Auto) 1+ /HPF (Negative) 12/28/21 19:00 Urine Mucus Few /HPF 12/28/21 19:00 Urine Yeast (Budding) 1+ /HPF 12/28/21 19:00 Nasal Screen MRSA (PCR) Negative (Negative) 12/29/21 14:30 Vancomycin Trough 6.1 ug/mL (5.0-20.0) 01/03/22 04:56 Salicylates < 0.3 mg/dL (2.8-20.0) L 12/28/21 12:49 Urine Opiates Screen Presumptive negative 12/28/21 19:00 Urine Methadone Screen Presumptive negative 12/28/21 19:00 Acetaminophen 5.0 ug/mL (10.0-30.0) L 12/28/21 12:49 Ur Barbiturates Screen Presumptive negative 12/28/21 19:00 Ur Phencyclidine Scrn Presumptive negative 12/28/21 19:00 Ur Amphetamines Screen Presumptive negative 12/28/21 19:00 U Benzodiazepines Scrn Presumptive negative 12/28/21 19:00 Urine Cocaine Screen Presumptive negative 12/28/21 19:00 U Marijuana (THC) Screen Presumptive positive 12/28/21 19:00 Drugs of Abuse Note Disclamer 12/28/21 19:00 Plasma/Serum Alcohol < 0.01 % (0-0.07) 12/28/21 12:49 Coronavirus (PCR) Negative (Negative) 01/04/22 Unknown Blood Type A POSITIVE 12/28/21 15:20 Antibody Screen Negative 12/28/21 15:20 Enriquez/IV: Voiding Method External Female Catheter Active Medications - Current Medications Current Medications: Generic Name Dose Route Start Last Admin Trade Name Freq PRN Reason Stop Dose Admin Acetaminophen 650 mg 12/28/21 20:33 Acetaminophen 325 Mg Tab PO Q8H PRN Pain, Mild (1-3) Al Hydrox/Mg Hydrox/Simethicone 30 ml 12/30/21 17:30 01/06/22 21:46 Alum-Mag Hydroxide-Simethicone 571-819-27mu/5ml Oral Liqd 30 Ml PO 30 ml Q4H PRN Administration Indigestion Albuterol 2.5 mg 12/28/21 20:31 Albuterol 2.5 Mg/3 Ml Nebu IH Q4HRT PRN Shortness Of Breath Amlodipine Besylate 5 mg 12/30/21 10:00 01/07/22 10:36 Amlodipine 5 Mg Tab PO 5 mg QDAY BAUTISTA Administration Amoxicillin/Clavulanate Potassium 1 each 01/02/22 22:00 01/07/22 10:36 Amoxicillin/K Clav 875/125mg Tab PO 01/11/22 10:01 1 each Q12HR BAUTISTA Administration Protocol Aspirin 325 mg 12/30/21 10:00 01/07/22 10:36 Aspirin 325 Mg Tab PO 325 mg QDAY BAUTISTA Administration Atorvastatin Calcium 80 mg 12/29/21 22:00 01/06/22 21:36 Atorvastatin 40 Mg Tab PO 80 mg QHS BAUTISTA Administration Clopidogrel Bisulfate 75 mg 12/30/21 10:00 01/06/22 09:23 Clopidogrel 75 Mg Tab PO 75 mg QDAY BAUTISTA Administration Dextrose 0 ml 12/28/21 20:32 Dextrose 10% *Hypoglycemia IV DIRECT PRN Hypoglycemia Protocol Doxycycline Hyclate 100 mg 01/02/22 22:00 01/07/22 10:36 Doxycycline 100 Mg Cap PO 01/11/22 10:01 100 mg BID BAUTISTA Administration Protocol Duloxetine HCl 120 mg 01/05/22 10:00 01/07/22 10:36 Duloxetine 30 Mg Cap PO 120 mg QDAY BAUTISTA Administration Famotidine 10 mg 12/29/21 22:00 01/07/22 10:36 Famotidine 10 Mg Tab PO 10 mg BID BAUTISTA Administration Gabapentin 300 mg 12/29/21 22:00 01/06/22 21:36 Gabapentin 300 Mg Cap PO 300 mg BID BAUTISTA Administration Hydromorphone HCl 1 mg 01/02/22 09:30 01/06/22 18:23 Hydromorphone 1 Mg/1 Ml Inj IV 1 mg Q3H PRN Administration Pain, Moderate (4-6) Insulin Glargine 25 units 12/30/21 22:00 01/06/22 21:36 Insulin Glargine 100 Units/Ml SUB-Q 25 units QHS BAUTISTA Administration Insulin Human Lispro 0 unit 12/29/21 11:30 01/07/22 10:34 Insulin Lispro 100 Unit/Ml SUB-Q Not Given ACHS BAUTISTA Protocol Lisinopril 10 mg 12/30/21 10:00 01/07/22 10:36 Lisinopril 10 Mg Tab PO 10 mg QDAY BAUTISTA Administration Nicotine 14 mg 12/29/21 17:00 01/07/22 10:36 Nicotine 14 Mg/24 Hr Patch TD 14 mg QDAY BAUTISTA Administration Ondansetron HCl 4 mg 12/28/21 20:31 12/31/21 09:47 Ondansetron 4 Mg/2 Ml Inj IV 4 mg Q8H PRN Administration Nausea And Vomiting Oxycodone/Acetaminophen 1 tab 01/02/22 11:00 01/07/22 05:27 Oxycodone /Acetaminophen 5-325mg Tab PO 1 tab Q6HR BAUTISTA Administration Sodium Chloride 10 ml 12/28/21 22:00 01/07/22 10:37 Sodium Chloride 0.9% 10 Ml Flush Syringe IV 10 ml BID BAUTISTA Administration Sodium Chloride 10 ml 12/28/21 20:31 Sodium Chloride 0.9% 10 Ml Flush Syringe IV PRN PRN LINE FLUSH Sodium Chloride 500 ml 01/04/22 16:38 01/04/22 16:48 Sodium Chloride 0.9% Irr 500 Ml Bottle IR 500 ml DIRECT PRN Administration Wound Care Tramadol HCl 50 mg 12/28/21 14:22 01/02/22 05:07 Tramadol 50 Mg Tab PO 50 mg Q6H PRN Administration Pain , Severe (7-10) Trazodone HCl 50 mg 01/04/22 22:00 01/06/22 21:35 Trazodone 50 Mg Tab PO 50 mg QHS BAUTISTA Administration Nutrition/Malnutrition Assess - Dietary Evaluation Nutrition/Malnutrition Findings: Nutrition Notes Start: 01/04/22 09:49 Freq: Status: Active Protocol: Document 01/04/22 09:49 ANDERSON (Rec: 01/04/22 10:04 ANDERSON [id number]) Nutrition Notes Need for Assessment generated from: LOS Initial or Follow up Assessment Current Diagnosis Diabetes,Sepsis,Hypertension, Heart Failure,Stroke Other Pertinent Diagnosis (R) leg necrotizing fasciitis s/p debridement, GERD, OA, Depression Current Diet GI soft Labs/Tests BG labs since admission: 362, 419, 280, 172, 190, 221 Pertinent Medications Reviewed Height 5 ft 6.93 in Weight 91.6 kg Export Body Weight (kg) 61.20 BMI 31.6 Weight Status Obese Subjective/Other Information Pt screened for LOS. She has consumed 50% of recorded meals . D/C summary written yesterday. Percent of energy/protein needs met: 64% energy 43% pro Burn Absent Trauma Absent Skin Integrity/Comment (R) upper thigh wound Current % PO Fair (50-74%) Minimum of two criteria No #2 Nutrition Diagnosis Altered nutrition-related laboratory values Etiology hx of DM As Evidenced by Signs and Symptoms BG been elevated since admission and current diet order has no CHO restriction #1 Nutrition Diagnosis Inadequate protein-energy intake Etiology sepsis, depression As Evidenced by Signs and Symptoms current PO intake meeting <75% estimated energy and pro needs; pt also with surgical wound requiring wound vac Is patient on ventilator? No Is Patient Ambulatory and/or Out of Bed No REE-([facility]-confined to bed) 1796.136 Kcal/Kg value to use for calculation 17 Approximate Energy Requirements Using 1557 kcal/Kg Calculation Used for Recommendations Kcal/kg Additional Notes Pro needs 1.25-1.5g/kg adjBW: 96-115g/day Fluid needs 1ml/kcal Nutrition Intervention Change Diet Order: Add consistent CHO modifier to current diet order Add Supplement/Snack (indicate name/kcal Ensure High Protein BID /protein ) Provides kCal: 320 Provides Protein (gm) 32 Goal #1 PO intake of meals plus ONS to meet at least 75% energy and pro needs Goal #2 Wound healing Anticipated Discharge Needs: Continue high-protein/low-CHO ONS 1-2 times daily if PO intake remains suboptimal Follow-Up By: 01/09/22 Additional Comments F/U: intakes (meals/ONS)
[2022-01-07] MEDS: CLOPIDOGREL 75 MG TAB PO SCH (12:34)
[2022-01-07] MEDS: GABAPENTIN 300 MG CAP PO SCH ×2 (12:34→22:19)
--- NOTE | 2022-01-07 18:26 | Progress Note ---
Assessment and Plan 66 YO Female with CVA on DAPT, HTN, DM, Diastolic CHF, GERD, Nicotine Dependence, OA, Debility presents to ED for evaluation. Patient states that she has experienced swelling, redness, and pain to her right thigh area over the past 3 days with persistent and worsening symptoms over the same timeframe. Patient states the pain is 10/10, constant, worsened with movement, and relieved with nonmovement. Patient also reports feeling depressed due to her current living conditions. Patient reports feeling suicidal and considered drawing up insulin and taking a big dose in an attempt to take her own life. Patient states that she is unsatisfied with her current family response to her needs. EMS was notified by family members due to the aforementioned symptoms and upon arrival the patient was found to be in distress and subsequent transported to [facility] for further care and evaluation of the aforementioned symptoms. Patient was found to have fever with a temperature of 101 F. Patient was also found to have cellulitis to the right thigh and perineal area complicated by sepsis. Patient admitted to medical floor and initiated on sepsis protocol. Mental health team consulted in ED. patient denies chills, chest pain, palpitation, productive cough, skin rash, recent contact, known exposure to COVID-19. Patient has history of smoking 1 pack a day x 30 years. Counseled to stop smoking. Patient has history of alcohol and drug abuse. 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 Allergic to pencillin. Patient Obese, awake. Patient resting on room air. O2 saturation 93%. No acute respiratory distress. Patient afebrile. Has leukocytosis. Blood pressure 112/66 , Pulse 87 , Respirations 18. Chest xray done 01/01/22 reported No acute findings. There is no evidence of pneumonia. Patient is started on PO antibiotics Augmentin and vibramycin. I was told patient tolerating Augmentin with out allergic reaction. Famotidine, Plavix, Albuterol inhaler and Nicotine patch. - Patient Problems (1) Cellulitis of right lower extremity Current Visit: Yes Status: Acute Plan to address problem: Patient was on meropenum and vancomycin. Patient is started on PO antibiotics Augmentin and vibramycin. I was told patient tolerating Augmentin with out allergic reaction. (2) Diabetes Current Visit: Yes Status: Acute Plan to address problem: Management as per primary care. (3) Diastolic CHF Current Visit: Yes Status: Acute Qualifiers: Heart failure chronicity: chronic Qualified Code(s): I50.32 - Chronic diastolic (congestive) heart failure Plan to address problem: Management as per cardiology. (4) GERD (gastroesophageal reflux disease) Current Visit: Yes Status: Acute Qualifiers: Esophagitis presence: without esophagitis Qualified Code(s): K21.9 - Gastro-esophageal reflux disease without esophagitis Plan to address problem: On Famotidine. (5) Hypertension Current Visit: Yes Status: Acute Qualifiers: Hypertension type: primary hypertension Qualified Code(s): I10 - Essential (primary) hypertension Plan to address problem: Management as per primary care. (6) Sepsis Current Visit: Yes Status: Acute Plan to address problem: Patient was on Meropenum and vancomycin. (7) Nicotine dependence Current Visit: No Status: Acute Qualifiers: Nicotine product type: cigarettes Substance use status: in withdrawal Qualified Code(s): F17.213 - Nicotine dependence, cigarettes, with withdrawal Plan to address problem: Counseled to stop smoking. (8) Obesity (BMI 30-39.9) Current Visit: Yes Status: Acute Plan to address problem: Recommend to loose weight. Recommend sleep study as out patient. Subjective Date of service: 01/07/22 Principal diagnosis: Cellulitis (Nec Faciitis); DM II; Morbid obesity ; Tobacco abuse; Acidosis Interval history: 66 YO Female with CVA on DAPT, HTN, DM, Diastolic CHF, GERD, Nicotine Dependence, OA, Debility presents to ED for evaluation. Patient states that she has experienced swelling, redness, and pain to her right thigh area over the past 3 days with persistent and worsening symptoms over the same timeframe. Patient states the pain is 10/10, constant, worsened with movement, and relieved with nonmovement. Patient also reports feeling depressed due to her current living conditions. Patient reports feeling suicidal and considered drawing up insulin and taking a big dose in an attempt to take her own life. Patient states that she is unsatisfied with her current family response to her needs. EMS was notified by family members due to the aforementioned symptoms and upon arrival the patient was found to be in distress and subsequent transported to [facility] for further care and evaluation of the aforementioned symptoms. Patient was found to have fever with a temperature of 101 F. Patient was also found to have cellulitis to the right thigh and perineal area complicated by sepsis. Patient admitted to medical floor and initiated on sepsis protocol. Mental health team consulted in ED. patient denies chills, chest pain, palpitation, productive cough, skin rash, recent contact, known exposure to COVID-19. Patient has history of smoking 1 pack a day x 30 years. Counseled to stop smoking. Patient has history of alcohol and drug abuse. 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 Allergic to pencillin. Patient Obese, awake. Patient resting on room air. O2 saturation 93%. No acute respiratory distress. Patient afebrile. Has leukocytosis. Blood pressure 112/66 , Pulse 87 , Respirations 18. Chest xray done 01/01/22 reported No acute findings. There is no evidence of pneumonia. Patient is started on PO antibiotics Augmentin and vibramycin. I was told patient tolerating Augmentin with out allergic reaction. Famotidine, Plavix, Albuterol inhaler and Nicotine patch. Objective Vital Signs - 12hr 01/07/22 01/07/22 01/07/22 06:27 07:38 13:15 Pulse Rate 88 Respiratory 17 19 Rate Blood Pressure 112/79 [Left] O2 Sat by Pulse 97 Oximetry Constitutional: no acute distress, alert Eyes: non-icteric ENT: oropharynx moist Neck: supple, no lymphadenopathy Effort: mildly labored Ascultation: Bilateral: diminished breath sounds Percussion: Bilateral: not dull Cardiovascular: regular rate and rhythm Gastrointestinal: normoactive bowel sounds, soft, non-tender Integumentary: normal Extremities: edema, other (Cellulitis, right thigh.) Neurologic: non-focal exam, pupils equal and round, CN II-XII normal Psychiatric: other (flat affect) CBC and BMP: 01/03/22 04:56 01/03/22 04:56 ABG, PT/INR, D-dimer: ABG ABG pH 7.413 pH Units (7.350-7.450) 01/01/22 10:48 ABG pCO2 56.6 mm Hg 01/01/22 10:48 ABG pO2 54.5 mm Hg (80.0-90.0) L 01/01/22 10:48 ABG O2 Saturation 89.0 % (95.0-99.0) L 01/01/22 10:48 Abnormal lab findings: Abnormal Labs 12/28/21 12/28/2112/28/22 12:49 12:49 12:49 WBC 34.9 H Hgb 14.7 H Hct 47.7 H MCH MCHC Plt Count Seg Neuts % (Manual) 90.0 H Lymphocytes % (Manual) 0 L Monocytes % (Manual) Seg Neutrophils # Man 31.4 H Lymphocytes # (Manual) 0.0 L Monocytes # (Manual) 1.4 H ABG pO2 ABG HCO3 ABG O2 Saturation ABG Base Excess ABG Hemoglobin Oxyhemoglobin Potassium Carbon Dioxide Glucose 362 H POC Glucose Lactic Acid Calcium Alkaline Phosphatase 269 H Total Protein Albumin 3.1 L Ur Specific Gable Salicylates < 0.3 L Acetaminophen 12/28/21 12/28/21 12/28/21 12:49 19:00 19:04 WBC Hgb Hct MCH MCHC Plt Count Seg Neuts % (Manual) Lymphocytes % (Manual) Monocytes % (Manual) Seg Neutrophils # Man Lymphocytes # (Manual) Monocytes # (Manual) ABG pO2 ABG HCO3 ABG O2 Saturation ABG Base Excess ABG Hemoglobin Oxyhemoglobin Potassium Carbon Dioxide Glucose POC Glucose Lactic Acid 3.30 H* Calcium Alkaline Phosphatase Total Protein Albumin Ur Specific Gable 1.043 H Salicylates Acetaminophen 5.0 L 12/28/21 12/28/21 12/28/21 20:41 20:56 20:56 WBC Hgb Hct MCH MCHC Plt Count Seg Neuts % (Manual) Lymphocytes % (Manual) Monocytes % (Manual) Seg Neutrophils # Man Lymphocytes # (Manual) Monocytes # (Manual) ABG pO2 ABG HCO3 ABG O2 Saturation ABG Base Excess ABG Hemoglobin Oxyhemoglobin Potassium Carbon Dioxide 20 L Glucose 419 H POC Glucose 399 H Lactic Acid 2.80 H* Calcium 8.1 L Alkaline Phosphatase Total Protein Albumin Ur Specific Gable Salicylates Acetaminophen 12/28/21 12/29/21 12/29/21 22:00 00:16 04:47 WBC 30.7 H Hgb Hct MCH 33 H MCHC 35 H Plt Count Seg Neuts % (Manual) 94.0 H Lymphocytes % (Manual) 2.0 L Monocytes % (Manual) Seg Neutrophils # Man 28.9 H Lymphocytes # (Manual) 0.6 L Monocytes # (Manual) ABG pO2 ABG HCO3 ABG O2 Saturation ABG Base Excess ABG Hemoglobin Oxyhemoglobin Potassium Carbon Dioxide Glucose POC Glucose 358 H 257 H Lactic Acid Calcium Alkaline Phosphatase Total Protein Albumin Ur Specific Gable Salicylates Acetaminophen 12/29/21 12/29/21 12/29/21 04:47 11:25 17:14 WBC Hgb Hct MCH MCHC Plt Count Seg Neuts % (Manual) Lymphocytes % (Manual) Monocytes % (Manual) Seg Neutrophils # Man Lymphocytes # (Manual) Monocytes # (Manual) ABG pO2 ABG HCO3 ABG O2 Saturation ABG Base Excess ABG Hemoglobin Oxyhemoglobin Potassium Carbon Dioxide Glucose 280 H POC Glucose 321 H 136 H Lactic Acid Calcium 8.0 L Alkaline Phosphatase 237 H Total Protein 6.0 L Albumin 2.3 L Ur Specific Gable Salicylates Acetaminophen 12/29/21 12/30/21 12/30/21 20:59 04:42 04:42 WBC 19.9 H Hgb Hct MCH MCHC Plt Count Seg Neuts % (Manual) Lymphocytes % (Manual) Monocytes % (Manual) Seg Neutrophils # Man Lymphocytes # (Manual) Monocytes # (Manual) ABG pO2 ABG HCO3 ABG O2 Saturation ABG Base Excess ABG Hemoglobin Oxyhemoglobin Potassium 3.2 L Carbon Dioxide Glucose 172 H POC Glucose 150 H Lactic Acid Calcium 8.3 L Alkaline Phosphatase Total Protein Albumin Ur Specific Gable Salicylates Acetaminophen 12/30/21 12/30/21 12/30/21 08:14 11:23 16:25 WBC Hgb Hct MCH MCHC Plt Count Seg Neuts % (Manual) Lymphocytes % (Manual) Monocytes % (Manual) Seg Neutrophils # Man Lymphocytes # (Manual) Monocytes # (Manual) ABG pO2 ABG HCO3 ABG O2 Saturation ABG Base Excess ABG Hemoglobin Oxyhemoglobin Potassium Carbon Dioxide Glucose POC Glucose 194 H 245 H 209 H Lactic Acid Calcium Alkaline Phosphatase Total Protein Albumin Ur Specific Gable Salicylates Acetaminophen 12/30/21 12/31/21 12/31/21 21:27 07:31 11:46 WBC Hgb Hct MCH MCHC Plt Count Seg Neuts % (Manual) Lymphocytes % (Manual) Monocytes % (Manual) Seg Neutrophils # Man Lymphocytes # (Manual) Monocytes # (Manual) ABG pO2 ABG HCO3 ABG O2 Saturation ABG Base Excess ABG Hemoglobin Oxyhemoglobin Potassium Carbon Dioxide Glucose POC Glucose 169 H 164 H 172 H Lactic Acid Calcium Alkaline Phosphatase Total Protein Albumin Ur Specific Gable Salicylates Acetaminophen 12/31/21 12/31/21 01/01/22 15:26 21:44 07:38 WBC Hgb Hct MCH MCHC Plt Count Seg Neuts % (Manual) Lymphocytes % (Manual) Monocytes % (Manual) Seg Neutrophils # Man Lymphocytes # (Manual) Monocytes # (Manual) ABG pO2 ABG HCO3 ABG O2 Saturation ABG Base Excess ABG Hemoglobin Oxyhemoglobin Potassium Carbon Dioxide Glucose POC Glucose 154 H 272 H 143 H Lactic Acid Calcium Alkaline Phosphatase Total Protein Albumin Ur Specific Gable Salicylates Acetaminophen 01/01/22 01/01/22 01/01/22 10:48 12:02 16:51 WBC Hgb Hct MCH MCHC Plt Count Seg Neuts % (Manual) Lymphocytes % (Manual) Monocytes % (Manual) Seg Neutrophils # Man Lymphocytes # (Manual) Monocytes # (Manual) ABG pO2 54.5 L ABG HCO3 35.3 H ABG O2 Saturation 89.0 L ABG Base Excess 9.1 H ABG Hemoglobin 11.5 L Oxyhemoglobin 87.4 L Potassium Carbon Dioxide Glucose POC Glucose 256 H 67 L Lactic Acid Calcium Alkaline Phosphatase Total Protein Albumin Ur Specific Gable Salicylates Acetaminophen 01/01/22 01/01/22 01/02/22 17:47 21:36 07:25 WBC 13.4 H Hgb Hct MCH MCHC Plt Count Seg Neuts % (Manual) 74.0 H Lymphocytes % (Manual) 13.0 L Monocytes % (Manual) 10.0 H Seg Neutrophils # Man 9.9 H Lymphocytes # (Manual) Monocytes # (Manual) 1.3 H ABG pO2 ABG HCO3 ABG O2 Saturation ABG Base Excess ABG Hemoglobin Oxyhemoglobin Potassium Carbon Dioxide Glucose POC Glucose 148 H 278 H Lactic Acid Calcium Alkaline Phosphatase Total Protein Albumin Ur Specific Gable Salicylates Acetaminophen 01/02/22 01/02/22 01/02/22 07:25 07:47 11:07 WBC Hgb Hct MCH MCHC Plt Count Seg Neuts % (Manual) Lymphocytes % (Manual) Monocytes % (Manual) Seg Neutrophils # Man Lymphocytes # (Manual) Monocytes # (Manual) ABG pO2 ABG HCO3 ABG O2 Saturation ABG Base Excess ABG Hemoglobin Oxyhemoglobin Potassium Carbon Dioxide 32 H Glucose 190 H POC Glucose 189 H 256 H Lactic Acid Calcium Alkaline Phosphatase Total Protein Albumin Ur Specific Gable Salicylates Acetaminophen 01/02/22 01/02/22 01/03/22 15:30 21:16 04:56 WBC 12.2 H Hgb Hct MCH MCHC Plt Count 463 H Seg Neuts % (Manual) 72.0 H Lymphocytes % (Manual) Monocytes % (Manual) Seg Neutrophils # Man 8.8 H Lymphocytes # (Manual) Monocytes # (Manual) ABG pO2 ABG HCO3 ABG O2 Saturation ABG Base Excess ABG Hemoglobin Oxyhemoglobin Potassium Carbon Dioxide Glucose POC Glucose 224 H 219 H Lactic Acid Calcium Alkaline Phosphatase Total Protein Albumin Ur Specific Gable Salicylates Acetaminophen 01/03/22 01/03/22 01/03/22 04:56 07:13 11:28 WBC Hgb Hct MCH MCHC Plt Count Seg Neuts % (Manual) Lymphocytes % (Manual) Monocytes % (Manual) Seg Neutrophils # Man Lymphocytes # (Manual) Monocytes # (Manual) ABG pO2 ABG HCO3 ABG O2 Saturation ABG Base Excess ABG Hemoglobin Oxyhemoglobin Potassium Carbon Dioxide 33 H Glucose 221 H POC Glucose 269 H 215 H Lactic Acid Calcium Alkaline Phosphatase Total Protein Albumin Ur Specific Gable Salicylates Acetaminophen 01/03/22 01/03/22 01/04/22 15:55 21:49 07:33 WBC Hgb Hct MCH MCHC Plt Count Seg Neuts % (Manual) Lymphocytes % (Manual) Monocytes % (Manual) Seg Neutrophils # Man Lymphocytes # (Manual) Monocytes # (Manual) ABG pO2 ABG HCO3 ABG O2 Saturation ABG Base Excess ABG Hemoglobin Oxyhemoglobin Potassium Carbon Dioxide Glucose POC Glucose 168 H 154 H 158 H Lactic Acid Calcium Alkaline Phosphatase Total Protein Albumin Ur Specific Gable Salicylates Acetaminophen 01/04/22 01/04/22 01/04/22 11:47 16:20 21:13 WBC Hgb Hct MCH MCHC Plt Count Seg Neuts % (Manual) Lymphocytes % (Manual) Monocytes % (Manual) Seg Neutrophils # Man Lymphocytes # (Manual) Monocytes # (Manual) ABG pO2 ABG HCO3 ABG O2 Saturation ABG Base Excess ABG Hemoglobin Oxyhemoglobin Potassium Carbon Dioxide Glucose POC Glucose 234 H 217 H 191 H Lactic Acid Calcium Alkaline Phosphatase Total Protein Albumin Ur Specific Gable Salicylates Acetaminophen 01/05/22 01/05/22 01/05/22 07:28 10:55 16:03 WBC Hgb Hct MCH MCHC Plt Count Seg Neuts % (Manual) Lymphocytes % (Manual) Monocytes % (Manual) Seg Neutrophils # Man Lymphocytes # (Manual) Monocytes # (Manual) ABG pO2 ABG HCO3 ABG O2 Saturation ABG Base Excess ABG Hemoglobin Oxyhemoglobin Potassium Carbon Dioxide Glucose POC Glucose 198 H 253 H 202 H Lactic Acid Calcium Alkaline Phosphatase Total Protein Albumin Ur Specific Gable Salicylates Acetaminophen 01/05/22 01/06/22 01/06/22 21:13 07:12 11:07 WBC Hgb Hct MCH MCHC Plt Count Seg Neuts % (Manual) Lymphocytes % (Manual) Monocytes % (Manual) Seg Neutrophils # Man Lymphocytes # (Manual) Monocytes # (Manual) ABG pO2 ABG HCO3 ABG O2 Saturation ABG Base Excess ABG Hemoglobin Oxyhemoglobin Potassium Carbon Dioxide Glucose POC Glucose 110 H 158 H 220 H Lactic Acid Calcium Alkaline Phosphatase Total Protein Albumin Ur Specific Gable Salicylates Acetaminophen 01/06/22 01/06/22 01/07/22 16:42 21:36 07:43 WBC Hgb Hct MCH MCHC Plt Count Seg Neuts % (Manual) Lymphocytes % (Manual) Monocytes % (Manual) Seg Neutrophils # Man Lymphocytes # (Manual) Monocytes # (Manual) ABG pO2 ABG HCO3 ABG O2 Saturation ABG Base Excess ABG Hemoglobin Oxyhemoglobin Potassium Carbon Dioxide Glucose POC Glucose 139 H 159 H 129 H Lactic Acid Calcium Alkaline Phosphatase Total Protein Albumin Ur Specific Gable Salicylates Acetaminophen 01/07/22 01/07/22 11:10 16:20 WBC Hgb Hct MCH MCHC Plt Count Seg Neuts % (Manual) Lymphocytes % (Manual) Monocytes % (Manual) Seg Neutrophils # Man Lymphocytes # (Manual) Monocytes # (Manual) ABG pO2 ABG HCO3 ABG O2 Saturation ABG Base Excess ABG Hemoglobin Oxyhemoglobin Potassium Carbon Dioxide Glucose POC Glucose 190 H 164 H Lactic Acid Calcium Alkaline Phosphatase Total Protein Albumin Ur Specific Gable Salicylates Acetaminophen Allied health notes reviewed: nursing
[2022-01-07] MEDS: HYDROmorphone 1 MG/1 ML INJ IV PRN (22:17)
[2022-01-07] MEDS: traZODone 50 MG TAB PO SCH (22:18)
[2022-01-08] MEDS: INSULIN GLARGINE 100 UNITS/ML SUB-Q SCH ×2 (01:48→22:24)
[2022-01-08] MEDS: oxyCODONE /ACETAMINOPHEN 5-325MG TAB PO SCH ×4 (01:53→17:10)
[2022-01-08] MEDS: INSULIN LISPRO 100 UNIT/ML SUB-Q SCH ×3 (08:12→16:56)
[2022-01-08] MEDS: AMOXICILLIN/K CLAV 875/125MG TAB PO SCH ×2 (09:02→21:37)
[2022-01-08] MEDS: DOXYCYCLINE 100 MG CAP PO SCH ×2 (09:02→21:35)
[2022-01-08] MEDS: DULoxetine 30 MG CAP PO SCH (09:02)
[2022-01-08] MEDS: ASPIRIN 325 MG TAB PO SCH (09:02)
[2022-01-08] MEDS: GABAPENTIN 300 MG CAP PO SCH ×2 (09:03→21:39)
[2022-01-08] MEDS: FAMOTIDINE 10 MG TAB PO SCH ×2 (09:03→21:37)
[2022-01-08] MEDS: NICOTINE 14 MG/24 HR PATCH TD SCH (09:03)
[2022-01-08] MEDS: amLODIPine 5 MG TAB PO SCH (09:03)
[2022-01-08] MEDS: CLOPIDOGREL 75 MG TAB PO SCH (09:03)
[2022-01-08] MEDS: LISINOPRIL 10 MG TAB PO SCH (09:03)
[2022-01-08] MEDS: HYDROmorphone 1 MG/1 ML INJ IV PRN ×3 (09:05→21:38)
--- NOTE | 2022-01-08 13:03 | Discharge Summary ---
Providers - Providers Date of Admission: 12/28/21 20:31 Attending physician: MAGEN BLANKENSHIP MD 12/28/21 12:41 Consult to Case Management [CONS] Stat Services Needed at Discharge: [facility] Notified:: n Additional Physician Instructions: Assess for safe living conditions. Patient states she became suicidal when family would not respond to her complaint. States she is laying in urine often 12/28/21 13:45 Physical Therapy Evaluation and Treat [CONS] Urgent Comment: Reason For Exam: Evaluate mobility status for discharge planning 12/28/21 13:46 Occupational Therapy Evaluate and Treat [CONS] Urgent Comment: Reason For Exam: Evaluation for discharge planning 12/28/21 15:02 Consult to Wound/ET Nurse [CONS] Routine Reason For Exam: wounds post I&D 12/28/21 20:19 Consult to Physician [CONS] Routine Comment: Dr. Calle spoke with Dr. Romano @ 2017 Consulting Provider: BEENA ROMANO Physician Instructions: Reason For Exam: Cellulitis/Soft tissue air 12/28/21 20:34 Consult to Physician [CONS] Routine Comment: Consulting Provider: GINA BIGGS Instructions: Reason For Exam: sepsis, necrotizing fasc 12/29/21 15:42 Consult to Physician [CONS] Routine Comment: Consulting Provider: BHASKAR PEREZ Physician Instructions: Reason For Exam: Sepsis, Necrotizing Fasciitis 01/02/22 05:40 Consult to Wound/ET Nurse [CONS] Routine Reason For Exam: wound eval 01/03/22 13:30 Consult Geriatric-Psych [CONS] Routine Consulting Provider: STEFANIE POE Reason For Exam: 1013 placed in the ED, pysch eval 01/05/22 12:08 Consult to Case Management [CONS] Urgent Services Needed at Discharge: [facility] Notified:: no Comment:: consult already placed days ago. replacing. Additional Physician Instructions: The patient's depression and suicidal thoughts are due to her living condition. The daughter whom attempts to take care of her is also in very poor health and says she cannot take care of her mother. They would like home health set up before leaving the hospital. Primary care physician: SALVAGE DETERMINER Hospitalization Condition: Fair Disposition: 01 HOME / SELF CARE / HOMELESS Core Measure Documentation - Palliative Care Palliative Care/ Comfort Measures: Not Applicable Exam - Constitutional Vitals: Temp Pulse Resp BP Pulse Ox 98.1 F 84 18 117/67 96 01/08/22 05:15 01/08/22 05:15 01/08/22 05:15 01/08/22 05:15 01/08/22 07:15 Plan Care Plan Goals: Please follow your primary care doctor. Follow-up with Dr. Dr. Aaron in outpatient wound care clinic. Assessment: Patient is a 66-year-old female past medical history of CVA on DAPT, hypertension, insulin-dependent type 2 diabetes mellitus, diastolic heart failure, GERD, nicotine dependence, osteoarthritis, and chronic debility who presented with worsening swelling, redness, and pain to her right thigh of the previous 3 days that was found to be secondary to necrotizing fasciitis. In the ED patient presented with a tachycardic to 105, WBC 34.9. General surgery was consulted, and the patient underwent wide excision debridement of her right leg (12/29/2021). The patient underwent a repeat debridement on 12/31/2021. The patient was initiated on clindamycin and meropenem for antibiotic coverage. Infectious disease was consulted and recommended the patient continuing meropenem and adding vancomycin in the place of Clinda. The patient revealed significant improvement in her leukocytosis, and she no longer requires debridement by general surgery. The patient was transitioned to p.o. doxycycline 100 mg twice daily and Augmentin 875/125 mg twice daily for a total of 10-day course. The patient was evaluated by PT/OT who recommended subacute rehab; h owever, the patient does not have the financial resources. Therefore the patient will be discharging home with home health, PT, OT, and fpc. General surgery recommended a wound VAC, and authorization is going through. On admission the patient was placed under 1013 for suicidal ideation. Mental health has assessed the patient and deemed that she no longer requires 1013 status. The patient can be medically discharged. Follow up with: BEENA ROMANO MD [Staff Physician] - 14 Days PRIMARY CARE, [Primary Care Provider] - 3-5 Days Prescriptions: Amoxicillin/K Clav Tab [Augmentin 875MG TAB] 1 tab PO Q12HR 3 Days #6 tab DULoxetine [Cymbalta] 60 mg PO QDAY #30 capsule Sodium Hypochlorite [Dakin's Full Strength] 15 applic IR BID #3 bottle Doxycycline Hyclate [Doxycycline Hyclate TAB] 100 mg PO Q12HR 3 Days #6 tab oxyCODONE /ACETAMINOPHEN [Percocet 5/325] 1 tab PO Q6HR PRN #28 tablet PRN Reason: Pain lisinopriL [Zestril TAB] 10 mg PO QDAY #30 tablet
--- NOTE | 2022-01-08 13:19 | Consultation ---
Past History Past Medical History: diabetes, GERD, hypertension, PVD, stroke, other (chf) Past Surgical History: bowel surgery, Other (colostomy (pt does not know why)) Social history: single, lives with family, smoking Family history: diabetes, hypertension Medications and Allergies Allergies Allergy/AdvReac Type Severity Reaction Status Date / Time Penicillins Allergy Swelling Verified 04/19/21 18:25 Home Medications Medication Instructions Recorded Confirmed Last Taken Type Nicotine [Habitrol] 14 mg TD QDAY #30 patch 07/23/19 12/29/21 Unknown Rx Aspirin 325 mg PO QDAY #90 tablet 04/21/21 12/29/21 Unknown Rx AtorvaSTATin [Lipitor] 80 mg PO QHS #90 tablet 04/21/21 12/29/21 Unknown Rx Baclofen [Lioresal] 20 mg PO Q8H PRN #20 tablet 04/21/21 12/29/21 Unknown Rx Clopidogrel [Plavix] 75 mg PO QDAY #90 tablet 04/21/21 12/29/21 Unknown Rx Famotidine [Pepcid] 20 mg PO BID #60 tablet 04/21/21 12/29/21 Unknown Rx Gabapentin 600 mg PO Q8HR #90 cap 04/21/21 12/29/21 Unknown Rx Insulin NPH/Regular [NovoLIN 70/30] 15 unit SUB-Q BIDDIAB 30 Days 04/21/21 12/29/21 Unknown Rx Lispro Insulin [HumaLOG] 0 unit SUB-Q ACHS 30 Days 04/21/21 12/29/21 Unknown Rx amLODIPine 5 mg PO DAILY #30 tab 04/22/21 12/29/21 Unknown Rx DULoxetine [Cymbalta] 60 mg PO QDAY #30 capsule 01/02/22 Unknown Rx lisinopriL [Zestril TAB] 10 mg PO QDAY #30 tablet 01/02/22 Unknown Rx oxyCODONE /ACETAMINOPHEN [Percocet 1 tab PO Q6HR PRN #28 tablet 01/02/22 Unknown Rx 5/325] Sodium Hypochlorite [[place] Full 15 applic IR BID #3 bottle 01/03/22 Unknown Rx Strength] Amoxicillin/K Clav Tab [Augmentin 1 tab PO Q12HR 3 Days #6 tab 01/08/22 Unknown Rx 875MG TAB] Doxycycline Hyclate [Doxycycline 100 mg PO Q12HR 3 Days #6 tab 01/08/22 Unknown Rx Hyclate TAB] Active Meds: Active Medications Acetaminophen (Acetaminophen 325 Mg Tab) 650 mg PO Q8H PRN PRN Reason: Pain, Mild (1-3) Al Hydrox/Mg Hydrox/Simethicone (Alum-Mag Hydroxide-Simethicone [phone]/5ml Oral Liqd 30 Ml) 30 ml PO Q4H PRN PRN Reason: Indigestion Last Admin: 01/06/22 21:46 Dose: 30 ml Albuterol (Albuterol 2.5 Mg/3 Ml Nebu) 2.5 mg IH Q4HRT PRN PRN Reason: Shortness Of Breath Amlodipine Besylate (Amlodipine 5 Mg Tab) 5 mg PO QDAY [facility] Last Admin: 01/08/22 09:03 Dose: 5 mg Amoxicillin/Clavulanate Potassium (Amoxicillin/K Clav 875/125mg Tab) 1 each PO Q12HR [facility]; Protocol Stop: 01/11/22 10:01 Last Admin: 01/08/22 09:02 Dose: 1 each Aspirin (Aspirin 325 Mg Tab) 325 mg PO QDAY [facility] Last Admin: 01/08/22 09:02 Dose: 325 mg Atorvastatin Calcium (Atorvastatin 40 Mg Tab) 80 mg PO QHS [facility] Last Admin: 01/07/22 22:19 Dose: 80 mg Clopidogrel Bisulfate (Clopidogrel 75 Mg Tab) 75 mg PO QDAY [facility] Last Admin: 01/08/22 09:03 Dose: 75 mg Dextrose (Dextrose 10% *Hypoglycemia) 0 ml IV DIRECT PRN; Protocol PRN Reason: Hypoglycemia Doxycycline Hyclate (Doxycycline 100 Mg Cap) 100 mg PO BID [facility]; Protocol Stop: 01/11/22 10:01 Last Admin: 01/08/22 09:02 Dose: 100 mg Duloxetine HCl (Duloxetine 30 Mg Cap) 120 mg PO QDAY [facility] Last Admin: 01/08/22 09:02 Dose: 120 mg Famotidine (Famotidine 10 Mg Tab) 10 mg PO BID [facility] Last Admin: 01/08/22 09:03 Dose: 10 mg Gabapentin (Gabapentin 300 Mg Cap) 300 mg PO BID [facility] Last Admin: 01/08/22 09:03 Dose: 300 mg Hydromorphone HCl (Hydromorphone 1 Mg/1 Ml Inj) 1 mg IV Q3H PRN PRN Reason: Pain, Moderate (4-6) Last Admin: 01/08/22 09:05 Dose: 1 mg Insulin Glargine (Insulin Glargine 100 Units/Ml) 25 units SUB-Q QHS [facility] Last Admin: 01/08/22 01:48 Dose: 25 units Insulin Human Lispro (Insulin Lispro 100 Unit/Ml) 0 unit SUB-Q ACHS [facility]; Protocol Last Admin: 01/08/22 08:12 Dose: Not Given Lisinopril (Lisinopril 10 Mg Tab) 10 mg PO QDAY [facility] Last Admin: 01/08/22 09:03 Dose: 10 mg Nicotine (Nicotine 14 Mg/24 Hr Patch) 14 mg TD QDAY [facility] Last Admin: 01/08/22 09:03 Dose: 14 mg Ondansetron HCl (Ondansetron 4 Mg/2 Ml Inj) 4 mg IV Q8H PRN PRN Reason: Nausea And Vomiting Last Admin: 12/31/21 09:47 Dose: 4 mg Oxycodone/Acetaminophen (Oxycodone /Acetaminophen 5-325mg Tab) 1 tab PO Q6HR [facility] Last Admin: 01/08/22 11:25 Dose: 1 tab Sodium Chloride (Sodium Chloride 0.9% 10 Ml Flush Syringe) 10 ml IV BID [facility] Last Admin: 01/08/22 09:03 Dose: 10 ml Sodium Chloride (Sodium Chloride 0.9% 10 Ml Flush Syringe) 10 ml IV PRN PRN PRN Reason: LINE FLUSH Sodium Chloride (Sodium Chloride 0.9% Irr 500 Ml Bottle) 500 ml IR DIRECT PRN PRN Reason: Wound Care Last Admin: 01/04/22 16:48 Dose: 500 ml Tramadol HCl (Tramadol 50 Mg Tab) 50 mg PO Q6H PRN PRN Reason: Pain , Severe (7-10) Last Admin: 01/02/22 05:07 Dose: 50 mg Trazodone HCl (Trazodone 50 Mg Tab) 50 mg PO QHS [facility] Last Admin: 01/07/22 22:18 Dose: 50 mg Physical Examination Vital signs: Vital Signs Temp Pulse Resp BP Pulse Ox 98.0 F 98 H 18 148/72 98 12/28/21 12:09 12/28/21 12:09 12/28/21 12:09 12/28/21 12:09 12/28/21 12:09 Results - Laboratory Findings CBC and BMP: 01/03/22 04:56 01/03/22 04:56 ABG ABG pH 7.413 pH Units (7.350-7.450) 01/01/22 10:48 ABG pCO2 56.6 mm Hg 01/01/22 10:48 ABG pO2 54.5 mm Hg (80.0-90.0) L 01/01/22 10:48 ABG O2 Saturation 89.0 % (95.0-99.0) L 01/01/22 10:48 Abnormal lab findings: Abnormal Labs 12/28/21 12/28/21 12/28/21 12:49 12:49 12:49 WBC 34.9 H Hgb 14.7 H Hct 47.7 H MCH MCHC Plt Count Seg Neuts % (Manual) 90.0 H Lymphocytes % (Manual) 0 L Monocytes % (Manual) Seg Neutrophils # Man 31.4 H Lymphocytes # (Manual) 0.0 L Monocytes # (Manual) 1.4 H ABG pO2 ABG HCO3 ABG O2 Saturation ABG Base Excess ABG Hemoglobin Oxyhemoglobin Potassium Carbon Dioxide Glucose 362 H POC Glucose Lactic Acid Calcium Alkaline Phosphatase 269 H Total Protein Albumin 3.1 L Ur Specific [place] Salicylates < 0.3 L Acetaminophen 12/28/21 12/28/21 12/28/21 12:49 19:00 19:04 WBC Hgb Hct MCH MCHC Plt Count Seg Neuts % (Manual) Lymphocytes % (Manual) Monocytes % (Manual) Seg Neutrophils # Man Lymphocytes # (Manual) Monocytes # (Manual) ABG pO2 ABG HCO3 ABG O2 Saturation ABG Base Excess ABG Hemoglobin Oxyhemoglobin Potassium Carbon Dioxide Glucose POC Glucose Lactic Acid 3.30 H* Calcium Alkaline Phosphatase Total Protein Albumin Ur Specific [place] 1.043 H Salicylates Acetaminophen 5.0 L 12/28/21 12/28/21 12/28/21 20:41 20:56 20:56 WBC Hgb Hct MCH MCHC Plt Count Seg Neuts % (Manual) Lymphocytes % (Manual) Monocytes % (Manual) Seg Neutrophils # Man Lymphocytes # (Manual) Monocytes # (Manual) ABG pO2 ABG HCO3 ABG O2 Saturation ABG Base Excess ABG Hemoglobin Oxyhemoglobin Potassium Carbon Dioxide 20 L Glucose 419 H POC Glucose 399 H Lactic Acid 2.80 H* Calcium 8.1 L Alkaline Phosphatase Total Protein Albumin Ur Specific [place] Salicylates Acetaminophen 12/28/21 12/29/21 12/29/21 22:00 00:16 04:47 WBC 30.7 H Hgb Hct MCH 33 H MCHC 35 H Plt Count Seg Neuts % (Manual) 94.0 H Lymphocytes % (Manual) 2.0 L Monocytes % (Manual) Seg Neutrophils # Man 28.9 H Lymphocytes # (Manual) 0.6 L Monocytes # (Manual) ABG pO2 ABG HCO3 ABG O2 Saturation ABG Base Excess ABG Hemoglobin Oxyhemoglobin Potassium Carbon Dioxide Glucose POC Glucose 358 H 257 H Lactic Acid Calcium Alkaline Phosphatase Total Protein Albumin Ur Specific [place] Salicylates Acetaminophen 12/29/21 12/29/21 12/29/21 04:47 11:25 17:14 WBC Hgb Hct MCH MCHC Plt Count Seg Neuts % (Manual) Lymphocytes % (Manual) Monocytes % (Manual) Seg Neutrophils # Man Lymphocytes # (Manual) Monocytes # (Manual) ABG pO2 ABG HCO3 ABG O2 Saturation ABG Base Excess ABG Hemoglobin Oxyhemoglobin Potassium Carbon Dioxide Glucose 280 H POC Glucose 321 H 136 H Lactic Acid Calcium 8.0 L Alkaline Phosphatase 237 H Total Protein 6.0 L Albumin 2.3 L Ur Specific [place] Salicylates Acetaminophen 12/29/21 12/30/21 12/30/21 20:59 04:42 04:42 WBC 19.9 H Hgb Hct MCH MCHC Plt Count Seg Neuts % (Manual) Lymphocytes % (Manual) Monocytes % (Manual) Seg Neutrophils # Man Lymphocytes # (Manual) Monocytes # (Manual) ABG pO2 ABG HCO3 ABG O2 Saturation ABG Base Excess ABG Hemoglobin Oxyhemoglobin Potassium 3.2 L Carbon Dioxide Glucose 172 H POC Glucose 150 H Lactic Acid Calcium 8.3 L Alkaline Phosphatase Total Protein Albumin Ur Specific [place] Salicylates Acetaminophen 12/30/21 12/30/21 12/30/21 08:14 11:23 16:25 WBC Hgb Hct MCH MCHC Plt Count Seg Neuts % (Manual) Lymphocytes % (Manual) Monocytes % (Manual) Seg Neutrophils # Man Lymphocytes # (Manual) Monocytes # (Manual) ABG pO2 ABG HCO3 ABG O2 Saturation ABG Base Excess ABG Hemoglobin Oxyhemoglobin Potassium Carbon Dioxide Glucose POC Glucose 194 H 245 H 209 H Lactic Acid Calcium Alkaline Phosphatase Total Protein Albumin Ur Specific [place] Salicylates Acetaminophen 12/30/21 12/31/21 12/31/21 21:27 07:31 11:46 WBC Hgb Hct MCH MCHC Plt Count Seg Neuts % (Manual) Lymphocytes % (Manual) Monocytes % (Manual) Seg Neutrophils # Man Lymphocytes # (Manual) Monocytes # (Manual) ABG pO2 ABG HCO3 ABG O2 Saturation ABG Base Excess ABG Hemoglobin Oxyhemoglobin Potassium Carbon Dioxide Glucose POC Glucose 169 H 164 H 172 H Lactic Acid Calcium Alkaline Phosphatase Total Protein Albumin Ur Specific [place] Salicylates Acetaminophen 12/31/21 12/31/21 01/01/22 15:26 21:44 07:38 WBC Hgb Hct MCH MCHC Plt Count Seg Neuts % (Manual) Lymphocytes % (Manual) Monocytes % (Manual) Seg Neutrophils # Man Lymphocytes # (Manual) Monocytes # (Manual) ABG pO2 ABG HCO3 ABG O2 Saturation ABG Base Excess ABG Hemoglobin Oxyhemoglobin Potassium Carbon Dioxide Glucose POC Glucose 154 H 272 H 143 H Lactic Acid Calcium Alkaline Phosphatase Total Protein Albumin Ur Specific [place] Salicylates Acetaminophen 01/01/22 01/01/22 01/01/22 10:48 12:02 16:51 WBC Hgb Hct MCH MCHC Plt Count Seg Neuts % (Manual) Lymphocytes % (Manual) Monocytes % (Manual) Seg Neutrophils # Man Lymphocytes # (Manual) Monocytes # (Manual) ABG pO2 54.5 L ABG HCO3 35.3 H ABG O2 Saturation 89.0 L ABG Base Excess 9.1 H ABG Hemoglobin 11.5 L Oxyhemoglobin 87.4 L Potassium Carbon Dioxide Glucose POC Glucose 256 H 67 L Lactic Acid Calcium Alkaline Phosphatase Total Protein Albumin Ur Specific [place] Salicylates Acetaminophen 01/01/22 01/01/22 01/02/22 17:47 21:36 07:25 WBC 13.4 H Hgb Hct MCH MCHC Plt Count Seg Neuts % (Manual) 74.0 H Lymphocytes % (Manual) 13.0 L Monocytes % (Manual) 10.0 H Seg Neutrophils # Man 9.9 H Lymphocytes # (Manual) Monocytes # (Manual) 1.3 H ABG pO2 ABG HCO3 ABG O2 Saturation ABG Base Excess ABG Hemoglobin Oxyhemoglobin Potassium Carbon Dioxide Glucose POC Glucose 148 H 278 H Lactic Acid Calcium Alkaline Phosphatase Total Protein Albumin Ur Specific [place] Salicylates Acetaminophen 01/02/22 01/02/22 01/02/22 07:25 07:47 11:07 WBC Hgb Hct MCH MCHC Plt Count Seg Neuts % (Manual) Lymphocytes % (Manual) Monocytes % (Manual) Seg Neutrophils # Man Lymphocytes # (Manual) Monocytes # (Manual) ABG pO2 ABG HCO3 ABG O2 Saturation ABG Base Excess ABG Hemoglobin Oxyhemoglobin Potassium Carbon Dioxide 32 H Glucose 190 H POC Glucose 189 H 256 H Lactic Acid Calcium Alkaline Phosphatase Total Protein Albumin Ur Specific [place] Salicylates Acetaminophen 01/02/22 01/02/22 01/03/22 15:30 21:16 04:56 WBC 12.2 H Hgb Hct MCH MCHC Plt Count 463 H Seg Neuts % (Manual) 72.0 H Lymphocytes % (Manual) Monocytes % (Manual) Seg Neutrophils # Man 8.8 H Lymphocytes # (Manual) Monocytes # (Manual) ABG pO2 ABG HCO3 ABG O2 Saturation ABG Base Excess ABG Hemoglobin Oxyhemoglobin Potassium Carbon Dioxide Glucose POC Glucose 224 H 219 H Lactic Acid Calcium Alkaline Phosphatase Total Protein Albumin Ur Specific [place] Salicylates Acetaminophen 01/03/22 01/03/22 01/03/22 04:56 07:13 11:28 WBC Hgb Hct MCH MCHC Plt Count Seg Neuts % (Manual) Lymphocytes % (Manual) Monocytes % (Manual) Seg Neutrophils # Man Lymphocytes # (Manual) Monocytes # (Manual) ABG pO2 ABG HCO3 ABG O2 Saturation ABG Base Excess ABG Hemoglobin Oxyhemoglobin Potassium Carbon Dioxide 33 H Glucose 221 H POC Glucose 269 H 215 H Lactic Acid Calcium Alkaline Phosphatase Total Protein Albumin Ur Specific [place] Salicylates Acetaminophen 01/03/22 01/03/22 01/04/22 15:55 21:49 07:33 WBC Hgb Hct MCH MCHC Plt Count Seg Neuts % (Manual) Lymphocytes % (Manual) Monocytes % (Manual) Seg Neutrophils # Man Lymphocytes # (Manual) Monocytes # (Manual) ABG pO2 ABG HCO3 ABG O2 Saturation ABG Base Excess ABG Hemoglobin Oxyhemoglobin Potassium Carbon Dioxide Glucose POC Glucose 168 H 154 H 158 H Lactic Acid Calcium Alkaline Phosphatase Total Protein Albumin Ur Specific [place] Salicylates Acetaminophen 01/04/22 01/04/22 01/04/22 11:47 16:20 21:13 WBC Hgb Hct MCH MCHC Plt Count Seg Neuts % (Manual) Lymphocytes % (Manual) Monocytes % (Manual) Seg Neutrophils # Man Lymphocytes # (Manual) Monocytes # (Manual) ABG pO2 ABG HCO3 ABG O2 Saturation ABG Base Excess ABG Hemoglobin Oxyhemoglobin Potassium Carbon Dioxide Glucose POC Glucose 234 H 217 H 191 H Lactic Acid Calcium Alkaline Phosphatase Total Protein Albumin Ur Specific [place] Salicylates Acetaminophen 01/05/22 01/05/22 01/05/22 07:28 10:55 16:03 WBC Hgb Hct MCH MCHC Plt Count Seg Neuts % (Manual) Lymphocytes % (Manual) Monocytes % (Manual) Seg Neutrophils # Man Lymphocytes # (Manual) Monocytes # (Manual) ABG pO2 ABG HCO3 ABG O2 Saturation ABG Base Excess ABG Hemoglobin Oxyhemoglobin Potassium Carbon Dioxide Glucose POC Glucose 198 H 253 H 202 H Lactic Acid Calcium Alkaline Phosphatase Total Protein Albumin Ur Specific [place] Salicylates Acetaminophen 01/05/22 01/06/22 01/06/22 21:13 07:12 11:07 WBC Hgb Hct MCH MCHC Plt Count Seg Neuts % (Manual) Lymphocytes % (Manual) Monocytes % (Manual) Seg Neutrophils # Man Lymphocytes # (Manual) Monocytes # (Manual) ABG pO2 ABG HCO3 ABG O2 Saturation ABG Base Excess ABG Hemoglobin Oxyhemoglobin Potassium Carbon Dioxide Glucose POC Glucose 110 H 158 H 220 H Lactic Acid Calcium Alkaline Phosphatase Total Protein Albumin Ur Specific [place] Salicylates Acetaminophen 01/06/22 01/06/22 01/07/22 16:42 21:36 07:43 WBC Hgb Hct MCH MCHC Plt Count Seg Neuts % (Manual) Lymphocytes % (Manual) Monocytes % (Manual) Seg Neutrophils # Man Lymphocytes # (Manual) Monocytes # (Manual) ABG pO2 ABG HCO3 ABG O2 Saturation ABG Base Excess ABG Hemoglobin Oxyhemoglobin Potassium Carbon Dioxide Glucose POC Glucose 139 H 159 H 129 H Lactic Acid Calcium Alkaline Phosphatase Total Protein Albumin Ur Specific [place] Salicylates Acetaminophen 01/07/22 01/07/22 01/07/22 11:10 16:20 22:34 WBC Hgb Hct MCH MCHC Plt Count Seg Neuts % (Manual) Lymphocytes % (Manual) Monocytes % (Manual) Seg Neutrophils # Man Lymphocytes # (Manual) Monocytes # (Manual) ABG pO2 ABG HCO3 ABG O2 Saturation ABG Base Excess ABG Hemoglobin Oxyhemoglobin Potassium Carbon Dioxide Glucose POC Glucose 190 H 164 H 154 H Lactic Acid Calcium Alkaline Phosphatase Total Protein Albumin Ur Specific [place] Salicylates Acetaminophen 01/08/22 01/08/22 07:42 12:16 WBC Hgb Hct MCH MCHC Plt Count Seg Neuts % (Manual) Lymphocytes % (Manual) Monocytes % (Manual) Seg Neutrophils # Man Lymphocytes # (Manual) Monocytes # (Manual) ABG pO2 ABG HCO3 ABG O2 Saturation ABG Base Excess ABG Hemoglobin Oxyhemoglobin Potassium Carbon Dioxide Glucose POC Glucose 129 H 227 H Lactic Acid Calcium Alkaline Phosphatase Total Protein Albumin Ur Specific [place] Salicylates Acetaminophen
--- NOTE | 2022-01-08 13:20 | Progress Note ---
Assessment and Plan Cellulitis (R. Lower ext Necrotizing fascitis) DM II Morbid obesity Tobacco use disorder/Nicotine dependence Lactic acidosis Leukocytosis Severe anal condylomata - no new issues today, continue care as below; - prn supplemental oxygen to keep O2 sats > 90% - prn bronchodilators ([place]) with pulm hygiene per RT - avoid nephrotoxins, renally dose all medications - continue mobility protocols to prevent pressure ulcers - PT/OT as tolerated - Wound care per RN/WCT under surgeons direction - continue accuchecks with glycemic control per SSI for target blood glucose < 180 mg/dL - tobacco abstinence strongly counseled at the bedside - home oxygen evaluation at discharge - GI & VTE prophylaxis - Flu & pneumovax per protocol - continue other care per attending / other consultants - prn analgesia per pain score - discharge planning ongoing concurrently ... re-evaluate in am & prn Subjective Date of service: 01/08/22 Principal diagnosis: Cellulitis (Nec Faciitis); DM II; Morbid obesity ; Tobacco abuse; Acidosis Interval history: Patient is seen today for: Cellulitis (Nec Faciitis); DM II; Morbid obesity ; Tobacco use disorder; Lactic acidosis; Leukocytosis; Severe anal condylomata Seen and examined at bedside; 24hour events reviewed; nursing and respiratory care staff consulted; no adverse overnight events reported to me; resting in bed; Objective Vital Signs - 12hr 01/08/22 01/08/22 05:15 07:15 Temperature 98.1 F Pulse Rate 84 Respiratory 18 Rate Blood Pressure 117/67 [Left] O2 Sat by Pulse 96 96 Oximetry Constitutional: no acute distress, alert Eyes: non-icteric ENT: oropharynx moist Neck: supple, no lymphadenopathy Effort: mildly labored Ascultation: Bilateral: clear, diminished breath sounds Percussion: Bilateral: not dull Cardiovascular: regular rate and rhythm Gastrointestinal: normoactive bowel sounds, soft, non-tender Integumentary: normal Extremities: edema, other (Cellulitis, right thigh.) Neurologic: non-focal exam, pupils equal and round, CN II-XII normal Psychiatric: other (flat affect) CBC and BMP: 01/03/22 04:56 01/03/22 04:56 ABG, PT/INR, D-dimer: ABG ABG pH 7.413 pH Units (7.350-7.450) 01/01/22 10:48 ABG pCO2 56.6 mm Hg 01/01/22 10:48 ABG pO2 54.5 mm Hg (80.0-90.0) L 01/01/22 10:48 ABG O2 Saturation 89.0 % (95.0-99.0) L 01/01/22 10:48 Abnormal lab findings: Abnormal Labs 12/28/21 12/28/21 12/28/21 12:49 12:49 12:49 WBC 34.9 H Hgb 14.7 H Hct 47.7 H MCH MCHC Plt Count Seg Neuts % (Manual) 90.0 H Lymphocytes % (Manual) 0 L Monocytes % (Manual) Seg Neutrophils # Man 31.4 H Lymphocytes # (Manual) 0.0 L Monocytes # (Manual) 1.4 H ABG pO2 ABG HCO3 ABG O2 Saturation ABG Base Excess ABG Hemoglobin Oxyhemoglobin Potassium Carbon Dioxide Glucose 362 H POC Glucose Lactic Acid Calcium Alkaline Phosphatase 269 H Total Protein Albumin 3.1 L Ur Specific [place] Salicylates < 0.3 L Acetaminophen 12/28/21 12/28/21 12/28/21 12:49 19:00 19:04 WBC Hgb Hct MCH MCHC Plt Count Seg Neuts % (Manual) Lymphocytes % (Manual) Monocytes % (Manual) Seg Neutrophils # Man Lymphocytes # (Manual) Monocytes # (Manual) ABG pO2 ABG HCO3 ABG O2 Saturation ABG Base Excess ABG Hemoglobin Oxyhemoglobin Potassium Carbon Dioxide Glucose POC Glucose Lactic Acid 3.30 H* Calcium Alkaline Phosphatase Total Protein Albumin Ur Specific [place] 1.043 H Salicylates Acetaminophen 5.0 L 12/28/21 12/28/21 12/28/21 20:41 20:56 20:56 WBC Hgb Hct MCH MCHC Plt Count Seg Neuts % (Manual) Lymphocytes % (Manual) Monocytes % (Manual) Seg Neutrophils # Man Lymphocytes # (Manual) Monocytes # (Manual) ABG pO2 ABG HCO3 ABG O2 Saturation ABG Base Excess ABG Hemoglobin Oxyhemoglobin Potassium Carbon Dioxide 20 L Glucose 419 H POC Glucose 399 H Lactic Acid 2.80 H* Calcium 8.1 L Alkaline Phosphatase Total Protein Albumin Ur Specific [place] Salicylates Acetaminophen 12/28/21 12/29/21 12/29/21 22:00 00:16 04:47 WBC 30.7 H Hgb Hct MCH 33 H MCHC 35 H Plt Count Seg Neuts % (Manual) 94.0 H Lymphocytes % (Manual) 2.0 L Monocytes % (Manual) Seg Neutrophils # Man 28.9 H Lymphocytes # (Manual) 0.6 L Monocytes # (Manual) ABG pO2 ABG HCO3 ABG O2 Saturation ABG Base Excess ABG Hemoglobin Oxyhemoglobin Potassium Carbon Dioxide Glucose POC Glucose 358 H 257 H Lactic Acid Calcium Alkaline Phosphatase Total Protein Albumin Ur Specific [place] Salicylates Acetaminophen 12/29/21 12/29/21 12/29/21 04:47 11:25 17:14 WBC Hgb Hct MCH MCHC Plt Count Seg Neuts % (Manual) Lymphocytes % (Manual) Monocytes % (Manual) Seg Neutrophils # Man Lymphocytes # (Manual) Monocytes # (Manual) ABG pO2 ABG HCO3 ABG O2 Saturation ABG Base Excess ABG Hemoglobin Oxyhemoglobin Potassium Carbon Dioxide Glucose 280 H POC Glucose 321 H 136 H Lactic Acid Calcium 8.0 L Alkaline Phosphatase 237 H Total Protein 6.0 L Albumin 2.3 L Ur Specific [place] Salicylates Acetaminophen 12/29/21 12/30/21 12/30/21 20:59 04:42 04:42 WBC 19.9 H Hgb Hct MCH MCHC Plt Count Seg Neuts % (Manual) Lymphocytes % (Manual) Monocytes % (Manual) Seg Neutrophils # Man Lymphocytes # (Manual) Monocytes # (Manual) ABG pO2 ABG HCO3 ABG O2 Saturation ABG Base Excess ABG Hemoglobin Oxyhemoglobin Potassium 3.2 L Carbon Dioxide Glucose 172 H POC Glucose 150 H Lactic Acid Calcium 8.3 L Alkaline Phosphatase Total Protein Albumin Ur Specific [place] Salicylates Acetaminophen 12/30/21 12/30/21 12/30/21 08:14 11:23 16:25 WBC Hgb Hct MCH MCHC Plt Count Seg Neuts % (Manual) Lymphocytes % (Manual) Monocytes % (Manual) Seg Neutrophils # Man Lymphocytes # (Manual) Monocytes # (Manual) ABG pO2 ABG HCO3 ABG O2 Saturation ABG Base Excess ABG Hemoglobin Oxyhemoglobin Potassium Carbon Dioxide Glucose POC Glucose 194 H 245 H 209 H Lactic Acid Calcium Alkaline Phosphatase Total Protein Albumin Ur Specific [place] Salicylates Acetaminophen 12/30/21 12/31/21 12/31/21 21:27 07:31 11:46 WBC Hgb Hct MCH MCHC Plt Count Seg Neuts % (Manual) Lymphocytes % (Manual) Monocytes % (Manual) Seg Neutrophils # Man Lymphocytes # (Manual) Monocytes # (Manual) ABG pO2 ABG HCO3 ABG O2 Saturation ABG Base Excess ABG Hemoglobin Oxyhemoglobin Potassium Carbon Dioxide Glucose POC Glucose 169 H 164 H 172 H Lactic Acid Calcium Alkaline Phosphatase Total Protein Albumin Ur Specific [place] Salicylates Acetaminophen 12/31/21 12/31/21 01/01/22 15:26 21:44 07:38 WBC Hgb Hct MCH MCHC Plt Count Seg Neuts % (Manual) Lymphocytes % (Manual) Monocytes % (Manual) Seg Neutrophils # Man Lymphocytes # (Manual) Monocytes # (Manual) ABG pO2 ABG HCO3 ABG O2 Saturation ABG Base Excess ABG Hemoglobin Oxyhemoglobin Potassium Carbon Dioxide Glucose POC Glucose 154 H 272 H 143 H Lactic Acid Calcium Alkaline Phosphatase Total Protein Albumin Ur Specific [place] Salicylates Acetaminophen 01/01/22 01/01/22 01/01/22 10:48 12:02 16:51 WBC Hgb Hct MCH MCHC Plt Count Seg Neuts % (Manual) Lymphocytes % (Manual) Monocytes % (Manual) Seg Neutrophils # Man Lymphocytes # (Manual) Monocytes # (Manual) ABG pO2 54.5 L ABG HCO3 35.3 H ABG O2 Saturation 89.0 L ABG Base Excess 9.1 H ABG Hemoglobin 11.5 L Oxyhemoglobin 87.4 L Potassium Carbon Dioxide Glucose POC Glucose 256 H 67 L Lactic Acid Calcium Alkaline Phosphatase Total Protein Albumin Ur Specific [place] Salicylates Acetaminophen 01/01/22 01/01/22 01/02/22 17:47 21:36 07:25 WBC 13.4 H Hgb Hct MCH MCHC Plt Count Seg Neuts % (Manual) 74.0 H Lymphocytes % (Manual) 13.0 L Monocytes % (Manual) 10.0 H Seg Neutrophils # Man 9.9 H Lymphocytes # (Manual) Monocytes # (Manual) 1.3 H ABG pO2 ABG HCO3 ABG O2 Saturation ABG Base Excess ABG Hemoglobin Oxyhemoglobin Potassium Carbon Dioxide Glucose POC Glucose 148 H 278 H Lactic Acid Calcium Alkaline Phosphatase Total Protein Albumin Ur Specific [place] Salicylates Acetaminophen 01/02/22 01/02/22 01/02/22 07:25 07:47 11:07 WBC Hgb Hct MCH MCHC Plt Count Seg Neuts % (Manual) Lymphocytes % (Manual) Monocytes % (Manual) Seg Neutrophils # Man Lymphocytes # (Manual) Monocytes # (Manual) ABG pO2 ABG HCO3 ABG O2 Saturation ABG Base Excess ABG Hemoglobin Oxyhemoglobin Potassium Carbon Dioxide 32 H Glucose 190 H POC Glucose 189 H 256 H Lactic Acid Calcium Alkaline Phosphatase Total Protein Albumin Ur Specific [place] Salicylates Acetaminophen 01/02/22 01/02/22 01/03/22 15:30 21:16 04:56 WBC 12.2 H Hgb Hct MCH MCHC Plt Count 463 H Seg Neuts % (Manual) 72.0 H Lymphocytes % (Manual) Monocytes % (Manual) Seg Neutrophils # Man 8.8 H Lymphocytes # (Manual) Monocytes # (Manual) ABG pO2 ABG HCO3 ABG O2 Saturation ABG Base Excess ABG Hemoglobin Oxyhemoglobin Potassium Carbon Dioxide Glucose POC Glucose 224 H 219 H Lactic Acid Calcium Alkaline Phosphatase Total Protein Albumin Ur Specific [place] Salicylates Acetaminophen 01/03/22 01/03/22 01/03/22 04:56 07:13 11:28 WBC Hgb Hct MCH MCHC Plt Count Seg Neuts % (Manual) Lymphocytes % (Manual) Monocytes % (Manual) Seg Neutrophils # Man Lymphocytes # (Manual) Monocytes # (Manual) ABG pO2 ABG HCO3 ABG O2 Saturation ABG Base Excess ABG Hemoglobin Oxyhemoglobin Potassium Carbon Dioxide 33 H Glucose 221 H POC Glucose 269 H 215 H Lactic Acid Calcium Alkaline Phosphatase Total Protein Albumin Ur Specific [place] Salicylates Acetaminophen 01/03/22 01/03/22 01/04/22 15:55 21:49 07:33 WBC Hgb Hct MCH MCHC Plt Count Seg Neuts % (Manual) Lymphocytes % (Manual) Monocytes % (Manual) Seg Neutrophils # Man Lymphocytes # (Manual) Monocytes # (Manual) ABG pO2 ABG HCO3 ABG O2 Saturation ABG Base Excess ABG Hemoglobin Oxyhemoglobin Potassium Carbon Dioxide Glucose POC Glucose 168 H 154 H 158 H Lactic Acid Calcium Alkaline Phosphatase Total Protein Albumin Ur Specific [place] Salicylates Acetaminophen 01/04/22 01/04/22 01/04/22 11:47 16:20 21:13 WBC Hgb Hct MCH MCHC Plt Count Seg Neuts % (Manual) Lymphocytes % (Manual) Monocytes % (Manual) Seg Neutrophils # Man Lymphocytes # (Manual) Monocytes # (Manual) ABG pO2 ABG HCO3 ABG O2 Saturation ABG Base Excess ABG Hemoglobin Oxyhemoglobin Potassium Carbon Dioxide Glucose POC Glucose 234 H 217 H 191 H Lactic Acid Calcium Alkaline Phosphatase Total Protein Albumin Ur Specific [place] Salicylates Acetaminophen 01/05/22 01/05/22 01/05/22 07:28 10:55 16:03 WBC Hgb Hct MCH MCHC Plt Count Seg Neuts % (Manual) Lymphocytes % (Manual) Monocytes % (Manual) Seg Neutrophils # Man Lymphocytes # (Manual) Monocytes # (Manual) ABG pO2 ABG HCO3 ABG O2 Saturation ABG Base Excess ABG Hemoglobin Oxyhemoglobin Potassium Carbon Dioxide Glucose POC Glucose 198 H 253 H 202 H Lactic Acid Calcium Alkaline Phosphatase Total Protein Albumin Ur Specific [place] Salicylates Acetaminophen 01/05/22 01/06/22 01/06/22 21:13 07:12 11:07 WBC Hgb Hct MCH MCHC Plt Count Seg Neuts % (Manual) Lymphocytes % (Manual) Monocytes % (Manual) Seg Neutrophils # Man Lymphocytes # (Manual) Monocytes # (Manual) ABG pO2 ABG HCO3 ABG O2 Saturation ABG Base Excess ABG Hemoglobin Oxyhemoglobin Potassium Carbon Dioxide Glucose POC Glucose 110 H 158 H 220 H Lactic Acid Calcium Alkaline Phosphatase Total Protein Albumin Ur Specific [place] Salicylates Acetaminophen 01/06/22 01/06/22 01/07/22 16:42 21:36 07:43 WBC Hgb Hct MCH MCHC Plt Count Seg Neuts % (Manual) Lymphocytes % (Manual) Monocytes % (Manual) Seg Neutrophils # Man Lymphocytes # (Manual) Monocytes # (Manual) ABG pO2 ABG HCO3 ABG O2 Saturation ABG Base Excess ABG Hemoglobin Oxyhemoglobin Potassium Carbon Dioxide Glucose POC Glucose 139 H 159 H 129 H Lactic Acid Calcium Alkaline Phosphatase Total Protein Albumin Ur Specific [place] Salicylates Acetaminophen 01/07/22 01/07/22 01/07/22 11:10 16:20 22:34 WBC Hgb Hct MCH MCHC Plt Count Seg Neuts % (Manual) Lymphocytes % (Manual) Monocytes % (Manual) Seg Neutrophils # Man Lymphocytes # (Manual) Monocytes # (Manual) ABG pO2 ABG HCO3 ABG O2 Saturation ABG Base Excess ABG Hemoglobin Oxyhemoglobin Potassium Carbon Dioxide Glucose POC Glucose 190 H 164 H 154 H Lactic Acid Calcium Alkaline Phosphatase Total Protein Albumin Ur Specific [place] Salicylates Acetaminophen 01/08/22 01/08/22 07:42 12:16 WBC Hgb Hct MCH MCHC Plt Count Seg Neuts % (Manual) Lymphocytes % (Manual) Monocytes % (Manual) Seg Neutrophils # Man Lymphocytes # (Manual) Monocytes # (Manual) ABG pO2 ABG HCO3 ABG O2 Saturation ABG Base Excess ABG Hemoglobin Oxyhemoglobin Potassium Carbon Dioxide Glucose POC Glucose 129 H 227 H Lactic Acid Calcium Alkaline Phosphatase Total Protein Albumin Ur Specific [place] Salicylates Acetaminophen Allied health notes reviewed: nursing
[2022-01-08] MEDS: traZODone 50 MG TAB PO SCH (21:37)
[2022-01-09] MEDS: oxyCODONE /ACETAMINOPHEN 5-325MG TAB PO SCH ×3 (02:21→11:21)
[2022-01-09] MEDS: INSULIN LISPRO 100 UNIT/ML SUB-Q SCH ×3 (02:22→11:40)
[2022-01-09] MEDS: HYDROmorphone 1 MG/1 ML INJ IV PRN (07:58)
[2022-01-09] MEDS: NICOTINE 14 MG/24 HR PATCH TD SCH (09:19)
[2022-01-09] MEDS: ASPIRIN 325 MG TAB PO SCH (09:19)
[2022-01-09] MEDS: DOXYCYCLINE 100 MG CAP PO SCH (09:20)
[2022-01-09] MEDS: FAMOTIDINE 10 MG TAB PO SCH (09:20)
[2022-01-09] MEDS: AMOXICILLIN/K CLAV 875/125MG TAB PO SCH (09:20)
[2022-01-09] MEDS: CLOPIDOGREL 75 MG TAB PO SCH (09:20)
[2022-01-09] MEDS: GABAPENTIN 300 MG CAP PO SCH (09:20)
[2022-01-09] MEDS: DULoxetine 30 MG CAP PO SCH (09:20)
[2022-01-09] MEDS: amLODIPine 5 MG TAB PO SCH (09:20)
[2022-01-09] MEDS: LISINOPRIL 10 MG TAB PO SCH (09:20)
[2022-01-09 12:33] VITALS: BP 109/62
== END 2022-01-09 12:27 | disposition home health service (06) | DRG 853 ==
LOC: ED 11:51 → CC1 20:31 → 3A 12-29 20:35
PROVIDERS: ADMIT Internal Medicine; ATTEND Student in an Organized Health Care Education/Training Program
PROC: 0JBL0ZZ Excision of Right Upper Leg Subcutaneous Tissue and Fascia, Open Approach (ICD-10-PCS; 2021-12-28)
PROC: 0KBQ0ZZ Excision of Right Upper Leg Muscle, Open Approach (ICD-10-PCS; principal; 2021-12-31)
PROC: 4A033R1 Measurement of Arterial Saturation, Peripheral, Percutaneous Approach (ICD-10-PCS; 2022-01-01)
DX: A41.9 Sepsis, unspecified organism (principal); M72.6 Necrotizing fasciitis; L03.115 Cellulitis of right lower limb; E87.6 Hypokalemia; I50.32 Chronic diastolic (congestive) heart failure; M19.90 Unspecified osteoarthritis, unspecified site; J45.909 Unspecified asthma, uncomplicated; L03.315 Cellulitis of perineum; R53.81 Other malaise; F17.210 Nicotine dependence, cigarettes, uncomplicated; E11.9 Type 2 diabetes mellitus without complications; K21.9 Gastro-esophageal reflux disease without esophagitis; E66.01 Morbid (severe) obesity due to excess calories; I11.0 Hypertensive heart disease with heart failure; Z86.73 Personal history of transient ischemic attack (TIA), and cerebral infarction without residual deficits; Z83.3 Family history of diabetes mellitus; Z82.49 Family history of ischemic heart disease and other diseases of the circulatory system; Z68.37 Body mass index [BMI] 37.0-37.9, adult; E11.65 Type 2 diabetes mellitus with hyperglycemia; E78.5 Hyperlipidemia, unspecified; Z20.822 Contact with and (suspected) exposure to COVID-19
CPT/HCPCS: 36415; 36600; 71046; 80048; 80053; 80202; 80307; 80320; 81001; 82140; 82803; 82962; 85007; 85025; 85027; 86850; 86900; 86901; 87040; 87075; 87116; 87641; 88304; 88307; 94760; G0378; J1815; J3490; J7120; J7502; Q0162; Q9967; G0480; J0330; J0692; J1170; J2185; J2250; J2370; J2405; J2704; J2710; J3010; J3370; J7030; J7040; U0003

== ENCOUNTER 2022-02-25 10:35 | Emergency (ER) | payer MEDICAID ==
[2022-02-25] MEDS ORDERED: ONDANSETRON 4 MG/2 ML INJ IV ONE (11:26)
[2022-02-25] MEDS ORDERED: SODIUM CHLORIDE 0.9% 1000 ML 1,000 ML IV ONE (11:27)
--- NOTE | 2022-02-25 11:45 | Emergency Department Report ---
ED General Adult HPI - General Chief complaint: Wound/Laceration Stated complaint: Wound Time Seen by Provider: 02/25/22 11:13 Source: EMS Mode of arrival: Stretcher Limitations: No Limitations - History of Present Illness Initial comments: 66-year-old female with multiple chronic medical conditions presents to the hospital with complaint of generalized weakness and nausea. Patient had a recent prolonged hospitalization with readmission last month for right upper necrotizing fasciitis status post wound debridement and status post wound VAC placement. Patient also has a colostomy and once again represents to the hospital with her ostomy bag. Patient has had home health visiting for the last 3 days. Today patient complains of bilateral leg pain, nausea, and generalized weakness. Patient's temperature is 99.1 orally in the ED Home health nurse at the bedside and expresses several concerns. She has only been with the patient for 3 days. During initial intake interview 1 week ago she noticed that patient had left facial droop which daughter endorse was new. Patient has known chronic left-sided weakness from previous CVA. She also st ates for the last 3 days she initially noticed yellow exudate on wound but now it appears to be green with some induration. She has not noticed warmth or erythema. Patient has had decreased p.o. intake for the last several days and has been noncompliant with her insulin. She expresses concern about ability of patient to take care of her self and inability of her daughter to assist with wound care. Patient does not have a visiting home wound care nurse has not followed up with wound care as outpatient. The home health nurse states she attempted debris and care for wound however, she is not a wound care nurse Severity scale (0 -10): 0 - Related Data Home Medications Medication Instructions Recorded Confirmed Last Taken Duloxetine HCl 60 mg PO QDAY 01/14/22 02/02/22 Unknown Insulin Detemir [Levemir Flextouch] 25 unit SQ QDAY 01/14/22 02/02/22 Unknown Metformin HCl [metFORMIN ER 1,000 mg PO QDAY 01/14/22 02/02/22 Unknown Osmotic] Previous Rx's Medication Instructions Recorded Last Taken Type Baclofen [Lioresal] 20 mg PO Q8H PRN #20 tablet 04/21/21 1 Day Ago Rx ~01/13/22 lisinopriL [Zestril TAB] 10 mg PO QDAY #30 tablet 01/02/22 1 Day Ago Rx ~01/13/22 Sodium Hypochlorite [Dakin's Full 15 applic IR BID #3 bottle 01/03/22 Unknown Rx Strength] Aspirin 325 mg PO QDAY 30 Days #30 tablet 01/28/22 Unknown Rx AtorvaSTATin [Lipitor] 80 mg PO QHS 30 Days #60 tablet 01/28/22 Unknown Rx Clopidogrel [Plavix] 75 mg PO QDAY 30 Days #30 tablet 01/28/22 Unknown Rx DULoxetine [Cymbalta] 60 mg PO QDAY 30 Days #60 capsule 01/28/22 Unknown Rx Empagliflozin [Jardiance] 10 mg PO QDAY 30 Days #30 tab 01/28/22 Unknown Rx Famotidine [Pepcid] 20 mg PO BID 30 Days #60 tablet 01/28/22 Unknown Rx Nicotine [Habitrol] 7 mg TD QDAY 30 Days #30 patch 01/28/22 Unknown Rx amLODIPine 5 mg PO DAILY #30 tab 01/28/22 Unknown Rx Gabapentin 900 mg PO TID 30 Days #270 cap 02/08/22 Unknown Rx Allergies Allergy/AdvReac Type Severity Reaction Status Date / Time Penicillins Allergy Swelling Verified 01/30/22 16:10 ED Review of Systems ROS: Stated complaint: Wound Other details as noted in HPI Comment: All other systems reviewed and negative ED Past Medical Hx - Past Medical History Hx Hypertension: Yes Hx CVA: Yes Hx Heart Attack/AMI: No Hx Congestive Heart Failure: Yes Hx Diabetes: Yes Hx Liver Disease: No Hx Arthritis: Yes Hx Asthma: Yes Hx COPD: Yes Hx HIV: No - Surgical History Additional Surgical History: Colostomy (patient uncertain why she received a colostomy), left lower extremity debridement - Social History Smoking Status: Smoker, Current Status Unknown - Medications Home Medications: Home Medications Medication Instructions Recorded Confirmed Last Taken Type Baclofen [Lioresal] 20 mg PO Q8H PRN #20 tablet 04/21/21 02/02/22 1 Day Ago Rx ~01/13/22 lisinopriL [Zestril TAB] 10 mg PO QDAY #30 tablet 01/02/22 02/02/22 1 Day Ago Rx ~01/13/22 Sodium Hypochlorite [Dakin's Full 15 applic IR BID #3 bottle 01/03/22 02/02/22 Unknown Rx Strength] Duloxetine HCl 60 mg PO QDAY 01/14/22 02/02/22 Unknown History Insulin Detemir [Levemir Flextouch] 25 unit SQ QDAY 01/14/22 02/02/22 Unknown History Metformin HCl [metFORMIN ER 1,000 mg PO QDAY 01/14/22 02/02/22 Unknown History Osmotic] Aspirin 325 mg PO QDAY 30 Days #30 tablet 01/28/22 02/02/22 Unknown Rx AtorvaSTATin [Lipitor] 80 mg PO QHS 30 Days #60 tablet 01/28/22 02/02/22 Unknown Rx Clopidogrel [Plavix] 75 mg PO QDAY 30 Days #30 tablet 01/28/22 02/02/22 Unknown Rx DULoxetine [Cymbalta] 60 mg PO QDAY 30 Days #60 capsule 01/28/22 02/02/22 Unknown Rx Empagliflozin [Jardiance] 10 mg PO QDAY 30 Days #30 tab 01/28/22 02/02/22 Unknown Rx Famotidine [Pepcid] 20 mg PO BID 30 Days #60 tablet 01/28/22 02/02/22 Unknown Rx Nicotine [Habitrol] 7 mg TD QDAY 30 Days #30 patch 01/28/22 02/02/22 Unknown Rx amLODIPine 5 mg PO DAILY #30 tab 01/28/22 02/02/22 Unknown Rx Gabapentin 900 mg PO TID 30 Days #270 cap 02/08/22 Unknown Rx ED Physical Exam - General Limitations: No Limitations - Other Other exam information: General: No acute distress Head: Atraumatic Eyes: normal appearance ENT: Moist mucous membranes Neck: Normal appearance, no midline tenderness Chest: Clear to auscultation bilaterally CV: Regular rate and rhythm Abdomen: Soft, normal bowel sounds, nontender, left lower quadrant ostomy site without current ostomy bag Back: Normal inspection Extremity: Normal inspection, full range of motion Neuro: Alert O x 3, mild left lower facial droop, speech clear, weak 4/5 left hand and left arm strength compared to 5/5 on the right with history of previous CVA with residual deficit Psych: Appropriate behavior Skin: Right upper inner thigh wound pink without erythema or significant drainage or warmth, patient has mild yellow exudate from fragmented abdominal pad dressing. Medial induration noted. Patient also has a wound lateral to her right labia. This is also pink without active drainage. 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 ED Course Vital Signs 04/18/22 04/18/22 04/18/22 10:44 11:15 11:35 Temperature 99.1 F Pulse Rate 98 H Respiratory 16 Rate Blood Pressure 108/64 Blood Pressure 125/73 [Right] O2 Sat by Pulse 99 99 88 Oximetry 02/25/22 02/25/22 02/25/22 11:46 12:00 12:16 Temperature Pulse Rate Respiratory Rate Blood Pressure 114/68 128/77 116/83 Blood Pressure [Right] O2 Sat by Pulse 95 96 95 Oximetry 02/25/22 02/25/22 02/25/22 12:30 12:46 13:00 Temperature Pulse Rate 101 H 97 H 96 H Respiratory 12 20 12 Rate Blood Pressure 163/101 158/76 137/64 Blood Pressure [Right] O2 Sat by Pulse 94 97 94 Oximetry 02/25/22 02/25/22 02/25/22 13:16 13:30 13:49 Temperature Pulse Rate 98 H 95 H 102 H Respiratory 15 14 20 Rate Blood Pressure 120/50 138/61 170/86 Blood Pressure [Right] O2 Sat by Pulse 97 92 91 Oximetry 02/25/22 16:50 Temperature Pulse Rate Respiratory Rate Blood Pressure Blood Pressure [Right] O2 Sat by Pulse 98 Oximetry ED Medical Decision Making - Lab Data Result diagrams: 02/25/22 16:40 02/25/22 13:00 - Radiology Data Radiology results: report reviewed CHEST 1 VIEW INDICATION / CLINICAL INFORMATION: cough. COMPARISON: 01/30/2022 FINDINGS: SUPPORT DEVICES: None. HEART / MEDIASTINUM: No significant abnormality. LUNGS / PLEURA: Underlying COPD again noted with mild crowding of br onchovascular bundles both lower lung cervantes. No significant pulmonary or pleural abnormality. No p neumothorax. ADDITIONAL FINDINGS: No significant additional findings. IMPRESSION: 1. No acute findings. CT head/brain wo con INDICATION / CLINICAL INFORMATION: 66 years Female; left facial droop, hx of chronic l sided weakness. TECHNIQUE: Routine CT head without contrast. All CT scans at this location are performed using CT dose reduction for ALARA by means of automated exposure control. COMPARISON: 04/19/2021 FINDINGS: BRAIN / INTRACRANIAL CONTENTS: Small lacunar infarcts seen in the gangliocapsular regions, some of which are age-indeterminate without diffusion imaging by MRI. Old, branch MCA infarct is seen in the right frontal lobe posteriorly and inferiorly, including the precentral gyral region (facial motor area). It would be difficult to evaluate for small areas of bryan-infarct ischemia without diffusion imaging by MRI. There may be a small arachnoid cyst versus old infarct near the parietal- occipital sulcus on the left. Otherwise, no acute hemorrhage, mass effect, midline shift, hydrocephalus, or acute, large territorial infarct. Mild, diffuse cerebral atrophy. There are moderate, somewhat confluent areas of decreased attenuation in the white matter of the cerebral hemispheres, as well as the gangliocapsular regions. These are nonspecific findings and may be related to microangiopathy (hypertension, diabetes, atherosclerosis), given the patient's age. It might be difficult to evaluate for small areas of ischemia without diffusion imaging by MRI. CRANIOCERVICAL JUNCTION: No significant abnormality. ORBITS: No significant abnormality of visualized orbits. SINUSES / MASTOIDS: There is a focal dehiscence of the lamina papyracea bilaterally-right more prominent than left. This finding should be of no clinical significance. ADDITIONAL FINDINGS: Atherosclerotic disease is seen in the anterior circulation. IMPRESSION: 1. No focal mass, hemorrhage, hydrocephalus, or acute, large territorial infarct. Follow-up with diffusion imaging by MRI, as clinically warranted. - Medical Decision Making 66-year-old female presents to the hospital after evaluation by home health nurse due to concerns of worsening infection, decreased p.o. intake, and left facial droop for 1 week. Visiting nurse expresses concern about patient's ability to take care of her self as well as her daughter's ability to take care of the patient. Patient has a history of CVA with left-sided deficits and is noted to have some mild left facial droop that improves with smiling. CT head does not show any acute findings. Patient's left-sided weakness is unchanged. Patient's mental status is at baseline. Patient does have chronic wounds to the right thigh and right labia with chronic anal condyloma. No clinical or examination findings of acute infection at this time. Patient has mild dehydration as noted by mild elevation in specific gravity and trace ketones in the urine however, she has normal BUN, creatinine and creatinine. Mild hypokalemia treated with p.o. potassium. Patient does not have signs of leukocytosis, acidosis, hypotension, or tachycardia to suggest sepsis. Patient's issue appears to be more of a social issue. Case management was consulted during ED stay. Patient likely needs a fci however, she was unable to be placed upon last admission. Patient does have home health but may also benefit from wound care. It is unclear if wound care can be continued at home and I discussed this with case management. At this time patient does not meet criteria for admission and will be discharged back home after dressing change in the ED. I also requested that nurse apply colostomy bag prior to discharge Critical Care Time: No Critical care attestation.: If time is entered above; I have spent that time in minutes in the direct care of this critically ill patient, excluding procedure time. ED Disposition Clinical Impression: Wound, open, hip or thigh, Condyloma, Colostomy care, Hypokalemia Disposition: 01 HOME / SELF CARE / HOMELESS Is pt being admited?: No Does the pt Need Aspirin: No Condition: Stable Instructions: Wound Care, Adult, Hypokalemia Additional Instructions: Follow-up with your doctor or doctor/clinic provided. Return if symptoms worsen as indicated by your discharge instructions. Referrals: PRIMARY [facility] [Primary Care Provider] - 3-5 Days [facility] - 3-5 Days Time of Disposition: 18:24
--- NOTE | 2022-02-25 12:12 | XRay Report ---
CHEST 1 VIEW INDICATION / CLINICAL INFORMATION: cough. COMPARISON: 01/30/2022 FINDINGS: SUPPORT DEVICES: None. HEART / MEDIASTINUM: No significant abnormality. LUNGS / PLEURA: Underlying COPD again noted with mild crowding of bronchovascular bundles both lower lung cervantes. No significant pulmonary or pleural abnormality. No pneumothorax. ADDITIONAL FINDINGS: No significant additional findings. IMPRESSION: 1. No acute findings. Signer Name: Mauro Nation MD Signed: 02/25/2022 12:07 PM Workstation Name: [id number]
[2022-02-25] MEDS ORDERED: MORPHINE 4 MG/1 ML INJ IV ONE (13:07)
[2022-02-25 13:25] LABS: Bilirubin,Urine NEG (Negative); Blood,Urine NEG (Negative); Color,Urine Yellow (Yellow); Mucus,Urine FEW /HPF; Protein,Urine <15 mg/dL mg/dL (Negative); Urobilinogen,Urine < 2.0 mg/dL (<2.0)
[2022-02-25 14:07] LABS: Alanine Aminotransferase 9 units/L (7-56); Albumin 3.2 g/dL (3.9-5); Blood Urea Nitrogen 10 mg/dL (7-17); Calcium 8.7 mg/dL (8.4-10.2); Hemolysis Index 16
[2022-02-25 14:18] LABS: BUN/Creatinine Ratio 14
--- NOTE | 2022-02-25 15:53 | Cat Scan Report ---
CT head/brain wo con INDICATION / CLINICAL INFORMATION: 66 years Female; left facial droop, hx of chronic l sided weakness. TECHNIQUE: Routine CT head without contrast. All CT scans at this location are performed using CT dos e reduction for ALARA by means of automated exposure control. COMPARISON: 04/19/2021 FINDINGS: BRAIN / INTRACRANIAL CONTENTS: Small lacunar infarcts seen in the gangliocapsular regions, some of wh ich are age-indeterminate without diffusion imaging by MRI. Old, branch MCA infarct is seen in the right frontal lobe posteriorly and inferiorly, including the p recentral gyral region (facial motor area). It would be difficult to evaluate for small areas of bryan -infarct ischemia without diffusion imaging by MRI. There may be a small arachnoid cyst versus old infarct near the parietal-occipital sulcus on the left . Otherwise, no acute hemorrhage, mass effect, midline shift, hydrocephalus, or acute, large territori al infarct. Mild, diffuse cerebral atrophy. There are moderate, somewhat confluent areas of decreased attenuation in the white matter of the cere bral hemispheres, as well as the gangliocapsular regions. These are nonspecific findings and may be r elated to microangiopathy (hypertension, diabetes, atherosclerosis), given the patient's age. It migh t be difficult to evaluate for small areas of ischemia without diffusion imaging by MRI. CRANIOCERVICAL JUNCTION: No significant abnormality. ORBITS: No significant abnormality of visualized orbits. SINUSES / MASTOIDS: There is a focal dehiscence of the lamina papyracea bilaterally-right more promin ent than left. This finding should be of no clinical significance. ADDITIONAL FINDINGS: Atherosclerotic disease is seen in the anterior circulation. IMPRESSION: 1. No focal mass, hemorrhage, hydrocephalus, or acute, large territorial infarct. Follow-up with diff usion imaging by MRI, as clinically warranted. Signer Name: Merrill Wesley MD, III Signed: 02/25/2022 3:49 PM Workstation Name: [id number]
[2022-02-25 16:51] LABS: Basophils % (Auto) 0.2 % (0.0-1.8); Eosinophils # (Auto) 0.1 K/mm3 (0.0-0.4); Eosinophils % (Auto) 1.6 % (0.0-4.3); Hematocrit 27.7 % (30.3-42.9); Lymphocytes # (Auto) 3.2 K/mm3 (1.2-5.4); Lymphocytes % (Auto) 38.5 % (13.4-35.0); Mean Corpuscular HGB Conc 33 % (30-34); Mean Corpuscular Volume 81 fl (79-97); Monocytes # (Auto) 0.8 K/mm3 (0.0-0.8); Platelet Count 442 K/mm3 (140-440)
[2022-02-25] MEDS ORDERED: POTASSIUM CHLORIDE ER 20 MEQ TAB PO ONE (16:59)
[2022-02-25] MEDS ORDERED: HYDROcodone/ACETAMINOPHEN 5-325 MG TAB PO ONE (19:36)
[2022-02-25] MEDS ORDERED: KETOROLAC 30 MG/1 ML INJ IV ONE (19:36)
[2022-02-25 21:10] VITALS: BP 112/73
== END 2022-02-25 21:20 | disposition home or self-care (01) ==
LOC: ED 10:35
DX: S71.009A Unspecified open wound, unspecified hip, initial encounter (principal); A63.0 Anogenital (venereal) warts; Z43.3 Encounter for attention to colostomy; I11.0 Hypertensive heart disease with heart failure; I50.9 Heart failure, unspecified; E11.9 Type 2 diabetes mellitus without complications; M19.90 Unspecified osteoarthritis, unspecified site; J45.909 Unspecified asthma, uncomplicated; Z86.73 Personal history of transient ischemic attack (TIA), and cerebral infarction without residual deficits; Z79.899 Other long term (current) drug therapy; Z88.0 Allergy status to penicillin; X58.XXXA Exposure to other specified factors, initial encounter; Y93.89 Activity, other specified; Y92.89 Other specified places as the place of occurrence of the external cause; Y99.8 Other external cause status
CPT/HCPCS: 70450; 71045; 80053; 81001; 82140; 82962; 83690; 85025; 87040; 96361; 96374; 96375; 99285; J1885; J2270; J2405; J7030

== ENCOUNTER 2022-03-15 13:12 | Emergency (ER) | payer MEDICAID ==
--- NOTE | 2022-03-15 16:35 | Emergency Department Report ---
ED General Adult HPI - General Chief complaint: Abdominal Pain Stated complaint: INFECTION GROIN Time Seen by Provider: 03/15/22 15:26 Source: patient, EMS Mode of arrival: Stretcher Limitations: No Limitations - History of Present Illness Initial comments: 66-year-old female with multiple chronic medical conditions presents to the hospital with complaint of generalized weakness and nausea. Patient had a recent prolonged hospitalization with readmission in january for right upper necrotizing fasciitis status post wound debridement and status post wound VAC placement can colostomy presents to the hospital once again with a home care nurse with concerns about patient's ability to care for her wound at home. The nurse at the bedside states that she has wound care background and has been taking care of the wound despite that not being part of her current care contract. She was told by her company that she could not continue with wound care. She was instructed to bring patient to the ER due to concerns that patient cannot care for the wound at home and would need admission to a higher level of care such as a fci. Patient is currently living in a motel/hotel with her daughter who also cannot take care of her. This is the same social problems that have been present over the last several months. Since discharge patient has not followed up with a primary care doctor or wound care clinic as previously instructed. Patient states she has she feels good. She denies pain or fever. She is ambulating around the department without difficulty Severity scale (0 -10): 0 - Related Data Home Medications Medication Instructions Recorded Confirmed Last Taken Duloxetine HCl 60 mg PO QDAY 01/14/22 02/02/22 Unknown Insulin Detemir [Levemir Flextouch] 25 unit SQ QDAY 01/14/22 02/02/22 Unknown Metformin HCl [metFORMIN ER 1,000 mg PO QDAY 01/14/22 02/02/22 Unknown Osmotic] Previous Rx's Medication Instructions Recorded Last Taken Type Baclofen [Lioresal] 20 mg PO Q8H PRN #20 tablet 04/21/21 1 Day Ago Rx ~01/13/22 lisinopriL [Zestril TAB] 10 mg PO QDAY #30 tablet 01/02/22 1 Day Ago Rx ~01/13/22 Sodium Hypochlorite [Dakin's Full 15 applic IR BID #3 bottle 01/03/22 Unknown Rx Strength] Aspirin 325 mg PO QDAY 30 Days #30 tablet 01/28/22 Unknown Rx AtorvaSTATin [Lipitor] 80 mg PO QHS 30 Days #60 tablet 01/28/22 Unknown Rx Clopidogrel [Plavix] 75 mg PO QDAY 30 Days #30 tablet 01/28/22 Unknown Rx DULoxetine [Cymbalta] 60 mg PO QDAY 30 Days #60 capsule 01/28/22 Unknown Rx Empagliflozin [Jardiance] 10 mg PO QDAY 30 Days #30 tab 01/28/22 Unknown Rx Famotidine [Pepcid] 20 mg PO BID 30 Days #60 tablet 01/28/22 Unknown Rx Nicotine [Habitrol] 7 mg TD QDAY 30 Days #30 patch 01/28/22 Unknown Rx amLODIPine 5 mg PO DAILY #30 tab 01/28/22 Unknown Rx Gabapentin 900 mg PO TID 30 Days #270 cap 02/08/22 Unknown Rx Acetaminophen/Codeine [Tylenol 1 tab PO Q6H PRN #14 tab 02/25/22 Unknown Rx /Codeine # 3 tab] Ondansetron [Zofran Odt] 4 mg PO Q8HR PRN #20 tab.rapdis 02/25/22 Unknown Rx Allergies Allergy/AdvReac Type Severity Reaction Status Date / Time Penicillins Allergy Swelling Verified 03/15/22 13:33 ED Review of Systems ROS: Stated complaint: INFECTION GROIN Other details as noted in HPI Comment: All other systems reviewed and negative ED Past Medical Hx - Past Medical History Hx Hypertension: Yes Hx CVA: Yes Hx Heart Attack/AMI: No Hx Congestive Heart Failure: Yes Hx Diabetes: Yes Hx Liver Disease: No Hx Arthritis: Yes Hx Asthma: Yes Hx COPD: Yes Hx HIV: No - Surgical History Additional Surgical History: Colostomy (patient uncertain why she received a colostomy), left lower extremity debridement - Social History Smoking Status: Current Every Day Smoker Substance Use Type: None, Marijuana - Medications Home Medications: Home Medications Medication Instructions Recorded Confirmed Last Taken Type Baclofen [Lioresal] 20 mg PO Q8H PRN #20 tablet 04/21/21 02/02/22 1 Day Ago Rx ~01/13/22 lisinopriL [Zestril TAB] 10 mg PO QDAY #30 tablet 01/02/22 02/02/22 1 Day Ago Rx ~01/13/22 Sodium Hypochlorite [Dakin's Full 15 applic IR BID #3 bottle 01/03/22 02/02/22 Unknown Rx Strength] Duloxetine HCl 60 mg PO QDAY 01/14/22 02/02/22 Unknown History Insulin Detemir [Levemir Flextouch] 25 unit SQ QDAY 01/14/22 02/02/22 Unknown History Metformin HCl [metFORMIN ER 1,000 mg PO QDAY 01/14/22 02/02/22 Unknown History Osmotic] Aspirin 325 mg PO QDAY 30 Days #30 tablet 01/28/22 02/02/22 Unknown Rx AtorvaSTATin [Lipitor] 80 mg PO QHS 30 Days #60 tablet 01/28/22 02/02/22 Unknown Rx Clopidogrel [Plavix] 75 mg PO QDAY 30 Days #30 tablet 01/28/22 02/02/22 Unknown Rx DULoxetine [Cymbalta] 60 mg PO QDAY 30 Days #60 capsule 01/28/22 02/02/22 Unknown Rx Empagliflozin [Jardiance] 10 mg PO QDAY 30 Days #30 tab 01/28/22 02/02/22 Unknown Rx Famotidine [Pepcid] 20 mg PO BID 30 Days #60 tablet 01/28/22 02/02/22 Unknown Rx Nicotine [Habitrol] 7 mg TD QDAY 30 Days #30 patch 01/28/22 02/02/22 Unknown Rx amLODIPine 5 mg PO DAILY #30 tab 01/28/22 02/02/22 Unknown Rx Gabapentin 900 mg PO TID 30 Days #270 cap 02/08/22 Unknown Rx Acetaminophen/Codeine [Tylenol 1 tab PO Q6H PRN #14 tab 02/25/22 Unknown Rx /Codeine # 3 tab] Ondansetron [Zofran Odt] 4 mg PO Q8HR PRN #20 tab.rapdis 02/25/22 Unknown Rx ED Physical Exam - General Limitations: No Limitations - Other Other exam information: General: No acute distress Head: Atraumatic Eyes: normal appearance ENT: Moist mucous membranes Neck: Normal appearance, no midline tenderness Chest: Clear to auscultation bilaterally CV: Regular rate and rhythm Abdomen: Soft, normal bowel sounds, nontender, nondistended, no rebound or guarding. Colostomy with bag Back: Normal inspection Extremity: Normal inspection, full range of motion Neuro: Alert O x 3, no facial asymmetry, speech clear, no gross motor sensory deficit Psych: Appropriate behavior Skin: Right inner thigh wound 8 x 3 cm pink and healing without exudate or malodorous drainage. Right labial fold wound is minimal at this time and also well-healing. ED Course Vital Signs 03/15/22 03/15/22 03/15/22 13:22 15:05 21:24 Temperature 97.9 F Pulse Rate 88 85 Respiratory 16 16 Rate Blood Pressure 116/68 155/64 [Left] O2 Sat by Pulse 100 99 91 Oximetry 03/15/22 21:25 Temperature Pulse Rate Respiratory 16 Rate Blood Pressure [Left] O2 Sat by Pulse Oximetry ED Medical Decision Making - Lab Data Result diagrams: 03/15/22 20:17 03/15/22 20:17 Lab Results 03/15/22 03/15/22 Range/Units 20:17 20:17 WBC 7.9 (4.5-11.0) K/mm3 RBC 4.06 (3.65-5.03) M/mm3 Hgb 9.5 L (10.1-14.3) gm/dl Hct 31.6 (30.3-42.9) % MCV 78 L (79-97) fl MCH 23 L (28-32) pg MCHC 30 (30-34) % RDW 19.4 H (13.2-15.2) % Plt Count 588 H (140-440) K/mm3 Lymph % (Auto) 34.8 (13.4-35.0) % [place] % (Auto) 8.8 H (0.0-7.3) % Eos % (Auto) 1.2 (0.0-4.3) % Baso % (Auto) 0.9 (0.0-1.8) % Lymph # (Auto) 2.7 (1.2-5.4) K/mm3 [place] # (Auto) 0.7 (0.0-0.8) K/mm3 Eos # (Auto) 0.1 (0.0-0.4) K/mm3 Baso # (Auto) 0.1 (0.0-0.1) K/mm3 Seg Neutrophils % 54.3 (40.0-70.0) % Seg Neutrophils # 4.3 (1.8-7.7) K/mm3 Sodium 142 (137-145) mmol/L Potassium 3.6 (3.6-5.0) mmol/L Chloride 101.3 (98-107) mmol/L Carbon Dioxide 29 (22-30) mmol/L Anion Gap 15 mmol/L BUN 13 (7-17) mg/dL Creatinine 0.7 (0.6-1.2) mg/dL Estimated GFR > 60 ml/min BUN/Creatinine Ratio 19 % Glucose 255 H (65-100) mg/dL Calcium 9.3 (8.4-10.2) mg/dL - Medical Decision Making 66-year female presents to the hospital due to concerns of ability to continue to care for wound. Patient's home health aid has been taking excellent care of the wound and it has improved under her care. I have seen patient in ER over the last several visits and this is the first time patient has presented with a colostomy in place, a well-healing appearing wound, and ambulating throughout the department without complaints of pain or feeling ill. Home health aid states that she was instructed to stop taking care of the wound and is concerned that in her absence she will no longer receive proper care and her condition will worsen. Patient has not followed up with her primary care doctor or wound care clinic since discharge from the hospital. Case management has been consulted to determine if assistance can be provided. Patient received wound dressing in the ED and will be disposed as per case management. She does not require medical admission at this time. Her p.o. medications will be continued Critical Care Time: No Critical care attestation.: If time is entered above; I have spent that time in minutes in the direct care of this critically ill patient, excluding procedure time. ED Disposition Clinical Impression: Healing wound Disposition: 01 HOME / SELF CARE / HOMELESS Is pt being admited?: No Does the pt Need Aspirin: No Condition: Stable Instructions: Abdominal Pain (ED), Wound Care, Adult Referrals: PRIMARY CARE, [Primary Care Provider] - 3-5 Days [facility] - 3-5 Days
[2022-03-15] MEDS ORDERED: diphenhydrAMINE 25 MG CAP PO ONE (20:56)
[2022-03-15] MEDS ORDERED: ONDANSETRON 4 MG ODT TAB PO PRN (20:56)
[2022-03-15] MEDS ORDERED: BACLOFEN 10 MG TAB PO PRN (20:56)
[2022-03-15] MEDS ORDERED: ACETAMINOPHEN 500 MG TAB PO ONE (20:56)
[2022-03-15 21:22] LABS: Blood Urea Nitrogen 13 mg/dL (7-17); Calcium 9.3 mg/dL (8.4-10.2); Hemolysis Index 2
[2022-03-15 21:25] LABS: BUN/Creatinine Ratio 19; Basophils # (Auto) 0.1 K/mm3 (0.0-0.1); Basophils % (Auto) 0.9 % (0.0-1.8); Eosinophils # (Auto) 0.1 K/mm3 (0.0-0.4); Eosinophils % (Auto) 1.2 % (0.0-4.3); Hematocrit 31.6 % (30.3-42.9); Hemoglobin 9.5 gm/dl (10.1-14.3); Lymphocytes # (Auto) 2.7 K/mm3 (1.2-5.4); Lymphocytes % (Auto) 34.8 % (13.4-35.0); Mean Corpuscular HGB Conc 30 % (30-34); Mean Corpuscular Volume 78 fl (79-97); Monocytes # (Auto) 0.7 K/mm3 (0.0-0.8); Monocytes % (Auto) 8.8 % (0.0-7.3); Platelet Count 588 K/mm3 (140-440); Red Blood Count 4.06 M/mm3 (3.65-5.03); Red Cell Distribution Width 19.4 % (13.2-15.2)
[2022-03-15] MEDS: DULoxetine 30 MG CAP PO SCH (22:00)
[2022-03-15] MEDS: LISINOPRIL 10 MG TAB PO SCH (22:00)
[2022-03-15] MEDS: amLODIPine 5 MG TAB PO SCH (22:00)
[2022-03-15] MEDS: ASPIRIN 325 MG TAB PO SCH (22:00)
[2022-03-15] MEDS: CLOPIDOGREL 75 MG TAB PO SCH (22:00)
[2022-03-15] MEDS: NICOTINE 7 MG/24 HR PATCH TD SCH (22:00)
[2022-03-15] MEDS: FAMOTIDINE 20 MG TAB PO SCH (23:58)
[2022-03-15] MEDS: GABAPENTIN 300 MG CAP PO SCH (23:58)
[2022-03-16] MEDS: INSULIN GLARGINE 100 UNITS/ML SUB-Q SCH ×2 (00:27→23:51)
[2022-03-16] MEDS: GABAPENTIN 300 MG CAP PO SCH ×3 (08:50→20:59)
[2022-03-16] MEDS: metFORMIN XR 500MG TAB PO SCH (09:29)
[2022-03-16] MEDS ORDERED: NON-FORMULARY EACH (Metformin Hcl [Metformin Er Osmotic] 500 MG Tab.Er.24) PO SCH (10:00)
[2022-03-16] MEDS ORDERED: NON-FORMULARY EACH (Empagliflozin [Jardiance] 10 MG Tablet) PO SCH (10:00)
[2022-03-16] MEDS ORDERED: NON-FORMULARY EACH (Insulin Detemir [Levemir Flextouch] 100 UNIT/ML Insuln.Pen) SQ SCH (10:00)
[2022-03-16] MEDS: LISINOPRIL 10 MG TAB PO SCH (11:02)
[2022-03-16] MEDS: amLODIPine 5 MG TAB PO SCH (12:01)
[2022-03-16] MEDS: DULoxetine 30 MG CAP PO SCH (12:03)
[2022-03-16] MEDS: CLOPIDOGREL 75 MG TAB PO SCH (12:27)
[2022-03-16] MEDS: FAMOTIDINE 20 MG TAB PO SCH ×2 (12:28→23:27)
[2022-03-16] MEDS: NICOTINE 7 MG/24 HR PATCH TD SCH (15:00)
[2022-03-16] MEDS: ASPIRIN 325 MG TAB PO SCH (15:26)
--- NOTE | 2022-03-16 19:03 | Emergency Department Report ---
Blank Doc - Documentation Documentation: 66 yo female awaiting safe dispo as per case management. I instructed RN to place a wound dressing. pt's current meds are continued she is eating and interacting without acute complaints. vitals signs normal
[2022-03-17] MEDS: GABAPENTIN 300 MG CAP PO SCH ×3 (08:27→23:00)
[2022-03-17] MEDS: metFORMIN XR 500MG TAB PO SCH (08:27)
[2022-03-17] MEDS: ASPIRIN 325 MG TAB PO SCH (10:01)
[2022-03-17] MEDS: DULoxetine 30 MG CAP PO SCH (10:01)
[2022-03-17] MEDS: amLODIPine 5 MG TAB PO SCH (10:01)
[2022-03-17] MEDS: NICOTINE 7 MG/24 HR PATCH TD SCH (10:01)
[2022-03-17] MEDS: LISINOPRIL 10 MG TAB PO SCH (10:02)
[2022-03-17] MEDS: CLOPIDOGREL 75 MG TAB PO SCH (10:02)
[2022-03-17] MEDS: FAMOTIDINE 20 MG TAB PO SCH (10:02)
--- NOTE | 2022-03-17 18:10 | Emergency Department Report ---
Blank Doc - Documentation Documentation: 66-year-old female still in the ED awaiting disposition. No active medical is sues at this time. Vital signs reviewed. Daily wound dressing changes have been ordered. Her current medications have been reconciled. Please refer to case management note for most recent update
[2022-03-17] MEDS: INSULIN GLARGINE 100 UNITS/ML SUB-Q SCH (23:00)
[2022-03-17] MEDS: MELATONIN 5 MG TAB PO PRN (23:01)
[2022-03-18] MEDS: FAMOTIDINE 20 MG TAB PO SCH ×2 (05:26→09:31)
[2022-03-18] MEDS: GABAPENTIN 300 MG CAP PO SCH ×3 (09:28→21:19)
[2022-03-18] MEDS: ASPIRIN 325 MG TAB PO SCH (09:29)
[2022-03-18] MEDS: DULoxetine 30 MG CAP PO SCH (09:30)
[2022-03-18] MEDS: LISINOPRIL 10 MG TAB PO SCH (09:31)
[2022-03-18] MEDS: CLOPIDOGREL 75 MG TAB PO SCH (09:31)
[2022-03-18] MEDS: amLODIPine 5 MG TAB PO SCH (09:32)
[2022-03-18] MEDS ORDERED: HYDROcodone/ACETAMINOPHEN 5-325 MG TAB PO ONE (09:37)
[2022-03-18] MEDS: metFORMIN XR 500MG TAB PO SCH (14:10)
[2022-03-18] MEDS: NICOTINE 7 MG/24 HR PATCH TD SCH (14:10)
[2022-03-18] MEDS: MELATONIN 5 MG TAB PO PRN (21:18)
[2022-03-18] MEDS: INSULIN GLARGINE 100 UNITS/ML SUB-Q SCH (22:00)
[2022-03-19] MEDS: FAMOTIDINE 20 MG TAB PO SCH ×2 (03:21→10:24)
[2022-03-19] MEDS: GABAPENTIN 300 MG CAP PO SCH ×2 (08:16→14:31)
[2022-03-19] MEDS: metFORMIN XR 500MG TAB PO SCH (08:16)
[2022-03-19] MEDS: amLODIPine 5 MG TAB PO SCH (10:23)
[2022-03-19] MEDS: DULoxetine 30 MG CAP PO SCH (10:23)
[2022-03-19] MEDS: ASPIRIN 325 MG TAB PO SCH (10:23)
[2022-03-19] MEDS: LISINOPRIL 10 MG TAB PO SCH (10:24)
[2022-03-19] MEDS: CLOPIDOGREL 75 MG TAB PO SCH (10:24)
[2022-03-19] MEDS: NICOTINE 7 MG/24 HR PATCH TD SCH (10:24)
[2022-03-19 11:21] VITALS: BP 135/75
[2022-03-19] MEDS ORDERED: ACETAMINOPHEN 325 MG TAB PO ONE (14:22)
== END 2022-03-19 17:46 | disposition home or self-care (01) ==
LOC: ED 13:12
DX: S71.101D Unspecified open wound, right thigh, subsequent encounter (principal); S31.40XD Unspecified open wound of vagina and vulva, subsequent encounter; R53.1 Weakness; R11.0 Nausea; I11.0 Hypertensive heart disease with heart failure; I50.9 Heart failure, unspecified; M19.90 Unspecified osteoarthritis, unspecified site; J44.9 Chronic obstructive pulmonary disease, unspecified; Z79.899 Other long term (current) drug therapy; Z88.0 Allergy status to penicillin; Z79.82 Long term (current) use of aspirin; X58.XXXD Exposure to other specified factors, subsequent encounter
CPT/HCPCS: 36415; 80048; 82962; 85025; 96372; 99284; J1815

== ENCOUNTER 2022-04-10 18:50 | Emergency (ER) | payer MEDICAID ==
[2022-04-10 20:47] VITALS: BP 114/65
[2022-04-11] MEDS ORDERED: ONDANSETRON 4 MG/2 ML INJ IM ONE (00:37)
[2022-04-11] MEDS ORDERED: MORPHINE 4 MG/1 ML INJ IM ONE (00:37)
--- NOTE | 2022-04-11 00:42 | Emergency Department Report ---
ED General Adult HPI - General Chief complaint: Medical Clearance Stated complaint: NEEDS NEW COLOSTOMY BAG Time Seen by Provider: 04/11/22 00:18 Source: patient, EMS Mode of arrival: Stretcher Limitations: No Limitations - History of Present Illness Initial comments: Patient is 66 years old female with history of hypertension, diabetes and chronic colostomy use. Patient presented to the ER stating that she is out of her colostomy bag. Patient stated that she usually get her bags from [facility] but she is unable to follow-up with them recently. Patient denies any other symptoms except for generalized body pain. She denied any fever or chills. No abdominal pain, chest pain or shortness of breath. No nausea or vomiting. - Related Data Home Medications Medication Instructions Recorded Confirmed Last Taken Duloxetine HCl 60 mg PO QDAY 01/14/22 02/02/22 Unknown Insulin Detemir [Levemir Flextouch] 25 unit SQ QDAY 01/14/22 02/02/22 Unknown Metformin HCl [metFORMIN ER 1,000 mg PO QDAY 01/14/22 02/02/22 Unknown Osmotic] Previous Rx's Medication Instructions Recorded Last Taken Type Baclofen [Lioresal] 20 mg PO Q8H PRN #20 tablet 04/21/21 1 Day Ago Rx ~01/13/22 lisinopriL [Zestril TAB] 10 mg PO QDAY #30 tablet 01/02/22 1 Day Ago Rx ~01/13/22 Sodium Hypochlorite [Dakin's Full 15 applic IR BID #3 bottle 01/03/22 Unknown Rx Strength] Aspirin 325 mg PO QDAY 30 Days #30 tablet 01/28/22 Unknown Rx AtorvaSTATin [Lipitor] 80 mg PO QHS 30 Days #60 tablet 01/28/22 Unknown Rx Clopidogrel [Plavix] 75 mg PO QDAY 30 Days #30 tablet 01/28/22 Unknown Rx DULoxetine [Cymbalta] 60 mg PO QDAY 30 Days #60 capsule 01/28/22 Unknown Rx Empagliflozin [Jardiance] 10 mg PO QDAY 30 Days #30 tab 01/28/22 Unknown Rx Famotidine [Pepcid] 20 mg PO BID 30 Days #60 tablet 01/28/22 Unknown Rx Nicotine [Habitrol] 7 mg TD QDAY 30 Days #30 patch 01/28/22 Unknown Rx amLODIPine 5 mg PO DAILY #30 tab 01/28/22 Unknown Rx Gabapentin 900 mg PO TID 30 Days #270 cap 02/08/22 Unknown Rx Acetaminophen/Codeine [Tylenol 1 tab PO Q6H PRN #14 tab 02/25/22 Unknown Rx /Codeine # 3 tab] Ondansetron [Zofran Odt] 4 mg PO Q8HR PRN #20 tab.rapdis 02/25/22 Unknown Rx Ondansetron [Zofran Odt] 4 mg PO Q8HR PRN #14 tab.rapdis 04/11/22 Unknown Rx traMADoL [Ultram 50 MG tab] 50 mg PO Q4HR PRN #14 tablet 04/11/22 Unknown Rx Allergies Allergy/AdvReac Type Severity Reaction Status Date / Time Penicillins Allergy Swelling Verified 03/15/22 13:33 ED Review of Systems ROS: Stated complaint: NEEDS NEW COLOSTOMY BAG Other details as noted in HPI Comment: All other systems reviewed and negative Constitutional: denies: chills, fever Respiratory: denies: cough, shortness of breath, SOB with exertion, SOB at rest Cardiovascular: denies: chest pain, palpitations, dyspnea on exertion Musculoskeletal: arthralgia, myalgia ED Past Medical Hx - Past Medical History Hx Hypertension: Yes Hx CVA: Yes Hx Heart Attack/AMI: No Hx Congestive Heart Failure: Yes Hx Diabetes: Yes Hx Liver Disease: No Hx Arthritis: Yes Hx Asthma: Yes Hx COPD: Yes Hx HIV: No - Surgical History Additional Surgical History: Colostomy (patient uncertain why she received a colostomy), left lower extremity debridement - Social History Smoking Status: Current Every Day Smoker Substance Use Type: None, Marijuana - Medications Home Medications: Home Medications Medication Instructions Recorded Confirmed Last Taken Type Baclofen [Lioresal] 20 mg PO Q8H PRN #20 tablet 04/21/21 02/02/22 1 Day Ago Rx ~01/13/22 lisinopriL [Zestril TAB] 10 mg PO QDAY #30 tablet 01/02/22 02/02/22 1 Day Ago Rx ~01/13/22 Sodium Hypochlorite [Dakin's Full 15 applic IR BID #3 bottle 01/03/22 02/02/22 Unknown Rx Strength] Duloxetine HCl 60 mg PO QDAY 01/14/22 02/02/22 Unknown History Insulin Detemir [Levemir Flextouch] 25 unit SQ QDAY 01/14/22 02/02/22 Unknown History Metformin HCl [metFORMIN ER 1,000 mg PO QDAY 01/14/22 02/02/22 Unknown History Osmotic] Aspirin 325 mg PO QDAY 30 Days #30 tablet 01/28/22 02/02/22 Unknown Rx AtorvaSTATin [Lipitor] 80 mg PO QHS 30 Days #60 tablet 01/28/22 02/02/22 Unknown Rx Clopidogrel [Plavix] 75 mg PO QDAY 30 Days #30 tablet 01/28/22 02/02/22 Unknown Rx DULoxetine [Cymbalta] 60 mg PO QDAY 30 Days #60 capsule 01/28/22 02/02/22 Unknown Rx Empagliflozin [Jardiance] 10 mg PO QDAY 30 Days #30 tab 01/28/22 02/02/22 Unknown Rx Famotidine [Pepcid] 20 mg PO BID 30 Days #60 tablet 01/28/22 02/02/22 Unknown Rx Nicotine [Habitrol] 7 mg TD QDAY 30 Days #30 patch 01/28/22 02/02/22 Unknown Rx amLODIPine 5 mg PO DAILY #30 tab 01/28/22 02/02/22 Unknown Rx Gabapentin 900 mg PO TID 30 Days #270 cap 02/08/22 Unknown Rx Acetaminophen/Codeine [Tylenol 1 tab PO Q6H PRN #14 tab 02/25/22 Unknown Rx /Codeine # 3 tab] Ondansetron [Zofran Odt] 4 mg PO Q8HR PRN #20 tab.rapdis 02/25/22 Unknown Rx Ondansetron [Zofran Odt] 4 mg PO Q8HR PRN #14 tab.rapdis 04/11/22 Unknown Rx traMADoL [Ultram 50 MG tab] 50 mg PO Q4HR PRN #14 tablet 04/11/22 Unknown Rx ED Physical Exam - General Limitations: No Limitations General appearance: alert, in no apparent distress - Head Head exam: Present: atraumatic, normocephalic, normal inspection - Eye Eye exam: Present: normal appearance - ENT ENT exam: Present: normal exam, normal orophraynx, mucous membranes moist - Neck Neck exam: Present: normal inspection, full ROM. Absent: tenderness, meningismus - Respiratory Respiratory exam: Present: normal lung sounds bilaterally. Absent: respiratory distress - Cardiovascular Cardiovascular Exam: Present: regular rate, normal rhythm, normal heart sounds - GI/Abdominal GI/Abdominal exam: Present: soft, normal bowel sounds, other (No clinical evidence of infection around the colostomy bag skin.). Absent: distended, tenderness, guarding, rebound, rigid - Neurological Exam Neurological exam: Present: alert, oriented X3, CN II-XII intact - Psychiatric Psychiatric exam: Present: normal mood - Skin Skin exam: Present: warm ED Course Vital Signs 04/10/22 20:37 Temperature 98.4 F Pulse Rate 98 H Respiratory 16 Rate Blood Pressure 114/65 [Right] O2 Sat by Pulse 100 Oximetry ED Medical Decision Making - Medical Decision Making Patient is 66 years old female with history of hypertension, diabetes and chronic colostomy use. Patient presented to the ER stating that she is out of her colostomy bag. Patient stated that she usually get her bags [facility] but she is unable to follow-up with them recently. Patient denies any other symptoms except for generalized body pain. She denied any fever or chills. No abdominal pain, chest pain or shortness of breath. No nausea or vomiting. Colostomy bag replaced by the nurse. Patient received morphine for pain. Patient given prescription for tramadol and Zofran and advised to follow-up with her primary care physician in the next 2 to 3 days and to return to the ER if she develop any new symptoms. Critical care attestation.: If time is entered above; I have spent that time in minutes in the direct care of this critically ill patient, excluding procedure time. ED Disposition Clinical Impression: Colostomy care, Generalized pain Disposition: 01 HOME / SELF CARE / HOMELESS Is pt being admited?: No Condition: Stable Instructions: Colostomy Home Guide, Adult, Muscle Pain, Adult Prescriptions: traMADoL [Ultram 50 MG tab] 50 mg PO Q4HR PRN #14 tablet PRN Reason: Pain Ondansetron [Zofran Odt] 4 mg PO Q8HR PRN #14 tab.rapdis PRN Reason: Nausea And Vomiting Referrals: PRIMARY CARE, [Primary Care Provider] - 3-5 Days
== END 2022-04-11 04:18 | disposition home or self-care (01) ==
LOC: ED 18:50
DX: Z43.3 Encounter for attention to colostomy (principal); R52 Pain, unspecified; Z88.0 Allergy status to penicillin
CPT/HCPCS: 96372; 99283; J2270; J2405; 99282